=== PATIENT | male | born 1975 | race Caucasian/White ===

== ENCOUNTER 2020-03-09 11:03 | Emergency (ER) | payer OTHER, SELFPAY ==
[2020-03-09 11:07] VITALS: BP 128/89; PULSE 83; RESP 16; TEMP 36.7; O2SAT 100; BMI 32.5
--- NOTE | 2020-03-09 12:03 | PC.NURSE ---
AMBULATORY WITH STEADY GAIT, RISES SLOWLY FROM SITTING POSITIONADAM
--- NOTE | 2020-03-09 12:14 | ED_ITS ---
HPI - Back Pain/Injury General Chief Complaint: Back Pain/Injury Stated Complaint: BACK PAIN - WORK Time Seen by Provider: 03/09/20 12:04 Source: patient Mode of arrival: ambulatory Limitations: no limitations History of Present Illness HPI Narrative: 44-year-old male with a past medical history of chronic low back pain on meloxicam here with mid back pain status post lifting injury at work. Patient tells me that he had a box in his hand and someone told him he had something on his back and so he twisted causing pain in his mid back. There was no fall. He tells me the pain is across his mid back. No additional radiation of pain. No numbness or tingling. No bowel or bladder incontinence. No fevers or chills. The patient is ambulatory MD elicited complaint: back pain and back injury Pertinent past history: prior back pain Onset (ago): hour(s) Timing: intermittent Severity: mild Quality: aching Location: thoracic spine Radiation: none Exacerbating factors: movement Relieving factors: immobilization Context: turning/twisting Associated symptoms: denies other symptoms Treatments prior to arrival: cold therapy Related Data Previous Rx's Medication Instructions Recorded meloxicam 15 mg tablet 15 mg PO DAILY #30 tab 12/05/19 cyclobenzaprine 10 mg PO TID PRN #10 tab 03/09/20 lidocaine [Lidoderm] 1 patch TOPICAL DAILY #15 ea 03/09/20 Allergies Allergy/AdvReac Type Severity Reaction Status Date / Time No Known Allergies Allergy Verified 01/11/20 08:52 Review of Systems Review of Systems: Yes all other systems are reviewed and are negative Constitutional: Constitutional: Reports no additional constitutional complaints, Denies body ache(s), Denies chills, Denies fever(s), Denies headache(s) and Denies weakness Eyes: Eyes: Reports no additional eye complaints and Denies change in vision ENT: Reports system reviewed and no additional complaints, except as documented, Denies dizziness, Denies headache(s), Denies nasal congestion, Denies nasal discharge and Denies neck pain Cardiovascular: Cardiovascular: Reports no additional cardiovascular complaints, Denies chest pain, Denies leg edema and Denies dyspnea Respiratory: Respiratory: Reports no additional respiratory complaints, Denies cough and Denies dyspnea Gastrointestinal: Gastrointestinal: Reports no additional gastrointestinal complaints, Denies abdominal pain, Denies diarrhea, Denies nausea and Denies vomiting Genitourinary: Genitourinary: Denies urinary incontinence Musculoskeletal: Musculoskeletal: Reports no additional musculoskeletal complaints, Reports back pain, Denies arthralgias, Denies joint swelling, Denies neck pain, Denies numbness and Denies tingling Integumentary/Breasts: Skin/Breast: Reports system reviewed and no additional complaints, except as docu and Denies rash Neurologic: Reports system reviewed and no additional complaints, except as documented, Denies Abnormal speech present, Denies dizziness, Denies headache(s), Denies numbness, Denies tingling and Denies weakness [facility]LY [facility] Past Medical History Attestation statement: The following information was validated with the patient. Source: old records reviewed and nursing notes reviewed Surgical History H/O elbow surgery History of vasectomy Family History Family History Father No problems noted. Mother No problems noted. Social History Social History Alcohol intake: never Smoking Status: Never smoker Advance Directives: No Advance Directives Information Provided: No Physical Exam Vital Signs: Vital Signs: Last Vital Signs Temp 98.1 F 03/09/20 11:07 Pulse 83 03/09/20 11:07 Resp 16 03/09/20 11:07 BP 128/89 03/09/20 11:07 Pulse Ox 100 03/09/20 11:07 Body Mass Index 32.5 Const: General: cooperative, healthy appearing, comfortable and no acute distress Orientation/consciousness: patient oriented x3 Limitations: no limitations HENMT: Head: Yes normal to inspection Ears: hearing grossly normal bilaterally General nose exam: Normal external nose present Face and sinus: Yes normal facial exam Mouth: Normal oral and palatal mucosa present Throat: Yes posterior oropharynx normal Eyes: General: appearance normal, both eyes and all related structures Pupils: Equal, round and reactive pupils present Neck: Neck: Yes normal visual inspection Chest: Chest palpation & inspection: normal inspection of the chest Resp: Effort & Inspection: normal respiratory effort Auscultation: clear to auscultation bilaterally Cardio: Rate: regular rate Rhythm: regular rhythm Peripheral pulses: Peripheral pulses 2+ throughout GI: Inspection: Yes normal to inspection Palpation (GI): Soft to palpation and nontender Auscultation: normal bowel sounds Back/Spine/Pelvis: Other: Mid back pain. No midline tenderness or step-offs or deformities. No CVA tenderness. Pain is worsened with flexion and extension of the thoracic spine. Thoracic/Lumbar Spine: thoracic and lumbar spine normal to inspection Skin: General skin exam: no rashes or lesions noted Neuro: General: patient oriented x3, no focal motor deficits and normal sensa tion to monofilament Cranial nerves: Yes Equal, round and reactive pupils present Cognition (Neuro): normal cognition Speech: No Abnormal speech present Gait exam (Neuro): Normal gait present Motor exam (neuro): 5/5 m otor strength present throughout Extrem: General: Yes normal to inspection Course Course Course Narrative: 44-year-old male here with mid back pain status post twisting injury at work. No midline tenderness, step-offs or deformities. No neurological deficits or red flag symptoms. Imaging was deferred by patient. Likely musculoskeletal strain. Medicated with Toradol in the ER with improvement of symptoms. Reviewed worrisome signs and symptoms of when to return to the emergency department. Comfortable discharge home. Discharge Plan Discharge Clinical Impression: Acute thoracic myofascial strain Qualifiers: Encounter type: initial encounter Qualified Code(s): S29.019A - Strain of muscle and tendon of unspecified wall of thorax, initial encounter Patient Disposition: Home, Self-Care Instructions: Thoracic Back Strain (ED) Additional Instructions: Heat or ice gentle stretching Follow-up with your PCP or work connection [phone] No heavy lifting or bending Return to emergency department with numbness in the groin, bowel or bladder incontinence Continue your meloxicam Prescriptions: New cyclobenzaprine 10 mg tablet 10 mg PO TID PRN (Reason: muscle spasm) Qty: 10 RF: 0 lidocaine [Lidoderm] 5 % adhesive patch,medicated 1 patch topical DAILY Qty: 15 RF: 0 No Action meloxicam [Mobic] 15 mg tablet 15 mg PO DAILY Qty: 30 RF: 6 Referrals: Physician,Unknown [Physician] - 2 days (Dr Wynne ) Interventions: ED Discharge Assessment Last Done: 03/09/20 12:23 Discharge Date/Time: 03/09/20 12:23
[2020-03-09] MEDS: Ketorolac Tromethamine 60 MG/2 ML VIAL IM (12:18)
== END 2020-03-09 12:23 | disposition home or self-care (01) ==
LOC: HO.ED 12:16
PROVIDERS: Emergency Provider Emergency Medicine; PCP Internal Medicine
DX: S29.019A Strain of muscle and tendon of unspecified wall of thorax, initial encounter (principal); X50.0XXA Overexertion from strenuous movement or load, initial encounter; Y93.9 Activity, unspecified; Y92.9 Unspecified place or not applicable; Y99.0 Civilian activity done for income or pay; Z79.899 Other long term (current) drug therapy
CPT/HCPCS: 96372; 99283; 99284; J1885

== ENCOUNTER → 2020-05-09 13:59 | Outpatient (BNVA) | payer OTHER, SELFPAY | PROVIDERS: PCP Internal Medicine; Visit Provider Urology ==

== ENCOUNTER 2020-06-15 10:16 | Outpatient (REF) | payer OTHER, SELFPAY ==
--- NOTE | ~2020-06-15 | US_ITS ---
EXAMINATION: US RETROPERITONEAL LIMITED (RENAL ONLY) CLINICAL INFORMATION: Calculus of kidney. COMPARISON: None TECHNIQUE: Real-time imaging of the kidneys. FINDINGS: RIGHT KIDNEY: 10.3 x 5.2 x 5.9 cm (SAG x AP x TRV). The kidney is normal in size, contour, and echogenicity. Renal cortical thickness is normal. No renal calculi or hydronephrosis. There is anechoic cyst in midpole measuring 2.5 x 2.0 x 2.6 cm. LEFT KIDNEY: 11.5 X 6.0 X 5.5 cm (SAG x AP x TRV). The kidney is normal in size, contour, and echogenicity. Renal cortical thickness is normal. No calculi or focal parenchymal lesions. No hydronephrosis. US/US renal BI IMPRESSION: There is anechoic cyst in the upper pole right kidney. The left kidney is unremarkable.
== END 2020-06-15 10:17 | disposition home or self-care (01) ==
LOC: HO.HMGCX 10:16
PROVIDERS: Visit Provider Urology
DX: N20.0 Calculus of kidney (principal)
CPT/HCPCS: 76775

== ENCOUNTER → 2020-06-22 08:37 | Outpatient (BNVA) | payer OTHER, SELFPAY | PROVIDERS: PCP Internal Medicine; Visit Provider Urology ==

== ENCOUNTER → 2020-11-21 10:08 | Outpatient (REF) | payer OTHER, SELFPAY | LOC: HO.SL 10:08 | PROVIDERS: PCP Internal Medicine; Visit Provider Internal Medicine | DX: G47.9 Sleep disorder, unspecified (principal) | CPT/HCPCS: 95806 ==

== ENCOUNTER 2020-12-12 11:35 | Outpatient (REF) | payer OTHER, SELFPAY ==
--- NOTE | ~2020-12-12 | US_ITS ---
EXAMINATION: US RETROPERITONEAL LIMITED (RENAL ONLY) CLINICAL INFORMATION: Calculus of kidney. COMPARISON: Renal ultrasound 06/15/2020. TECHNIQUE: Real-time imaging of the kidneys. FINDINGS: RIGHT KIDNEY: 10.0 x 6.1 x 5.9 cm (SAG x AP x TRV). The kidney is normal in size, contour, and echogenicity. Renal cortical thickness is normal. There is a 2.4 x 2 x 2.5 cm cyst in the upper pole. No renal calculi or hydronephrosis. LEFT KIDNEY: 11.0 x 6.0 x 5.5 cm (SAG x AP x TRV). The kidney is normal in size, contour, and echogenicity. Renal cortical thickness is normal. No calculi or focal parenchymal lesions. No hydronephrosis. US/US renal BI IMPRESSION: Right renal cyst. No stone seen.
== END 2020-12-12 11:36 | disposition home or self-care (01) ==
LOC: HO.HMGCX 11:35
PROVIDERS: PCP Internal Medicine; Visit Provider Urology
DX: N20.0 Calculus of kidney (principal)
CPT/HCPCS: 76775

== ENCOUNTER 2021-01-22 10:31 | Outpatient (REF) | payer OTHER, SELFPAY ==
[2021-01-22 11:28] LABS: MANUAL DIFF FLAG NO
[2021-01-22 11:37] LABS: Basophils Percent Auto 0.4 % (0-2); Eosinophils Absolute Auto 0.1 X10*3/uL (0.0-0.4); Eosinophils Percent Auto 1.2 % (0-4); Hematocrit 41.1 % (42.0-52.0); Hemoglobin 13.7 g/dl (14.0-18.0); Imm Gran Abs Auto 0.02 X10*3/uL (0.00-0.03); Imm Gran Pct Auto 0.3 % (0.0-0.4); Lymphocytes Absolute Auto 2.1 X10*3/uL (1.2-4.9); Mean Corpuscular HGB Conc 33.3 g/dl (31.0-36.0); Mean Corpuscular Hemoglobin 31.1 pg (27.0-33.0); Mean Corpuscular Volume 93.2 fL (80.0-98.0); Mean Platelet Volume 10.5 fL (9.4-12.4); Monocytes Absolute Auto 0.5 X10*3/uL (0.1-1.2); Monocytes Percent Auto 6.9 % (2-11); Neutrophils Absolute Auto 4.5 x10*3/uL (2.0-8.3); Neutrophils Percent Auto 62.2 % (45-73); Platelet Count 226 X10*3/uL (160-400); Red Blood Count 4.41 X10*6/uL (4.60-5.80); Red Cell Distribution Width 12.4 % (11.0-16.0); White Blood Count 7.3 X10*3/uL (4.8-10.8)
[2021-01-22 11:57] LABS: Alanine Aminotransferase 31 U/L (0-40); Albumin Level 4.5 g/dL (3.5-5.0); Alkaline Phosphatase 80 U/L (39-117); Anion Gap 13 (12-20); Aspartate Amino Transferase 20 U/L (5-37); Bilirubin Total 0.3 mg/dL (0.0-1.0); Blood Urea Nitrogen 20 mg/dL (9-16); Calcium 9.4 mg/dL (8.4-10.2); Carbon Dioxide 25 mmol/L (22-29); Chloride 107 mmol/L (96-108); Cholesterol 229 mg/dL; Estimated Glomerular Filt Rate > 60; Glucose Fasting 96 mg/dL (60-99); HDL Cholesterol 41 mg/dL; LDL Cholesterol Calculated 171 mg/dl; Potassium 4.5 mmol/L (3.3-5.1); Sodium 140 mmol/L (135-145); Total Protein 6.9 g/dL (6.5-8.0); Triglycerides 85 mg/dL
== END 2021-01-22 10:32 | disposition home or self-care (01) ==
LOC: HO.HMGCLDS 10:31
PROVIDERS: PCP Internal Medicine; Visit Provider Internal Medicine
DX: Z00.00 Encounter for general adult medical examination without abnormal findings (principal)
CPT/HCPCS: 36415; 80053; 80061; 84443; 85025

== ENCOUNTER → 2021-01-29 10:13 | Outpatient (BNVA) | payer OTHER, SELFPAY | PROVIDERS: PCP Internal Medicine; Visit Provider Urology ==

== ENCOUNTER → 2021-04-02 11:29 | Outpatient (BNVA) | payer OTHER, SELFPAY | PROVIDERS: PCP Internal Medicine; Visit Provider Urology | DX: N20.0 Calculus of kidney (principal); N43.40 Spermatocele of epididymis, unspecified | CPT/HCPCS: 99212 ==

== ENCOUNTER 2021-04-03 | Outpatient (REF) | payer OTHER, SELFPAY ==
--- NOTE | ~2021-04-03 | CT_ITS ---
EXAMINATION: CT HEAD WITHOUT CONTRAST CLINICAL INFORMATION: Dizziness and giddiness. COMPARISON: None. TECHNIQUE: Contiguous axial imaging was performed from the skull base to vertex without intravenous administration of contrast. This CT examination was performed using dose optimization techniques as appropriate, variously including the following: *Automated exposure control *Adjustment of mA and/or kV according to patient size (this includes techniques or standardized protocols for targeted exams where dose is matched to indication/reason for exam; i.e. extremities or head) *Use of iterative reconstruction technique DLP: 874 mGy-cm. FINDINGS: There is no evidence of acute intracranial hemorrhage or territorial infarction. No abnormal mass effect or midline shift is seen. Alavrado to white matter differentiation is well preserved. No extra-axial fluid collections are identified. The ventricles are normal in size. There is no abnormal attenuation within the brain parenchyma. The osseous structures and soft tissues are normal. The mastoid air cells and visualized portions of the paranasal sinuses are well aerated. CT/CT head/brain wo con IMPRESSION: No acute intracranial process seen.
== END 2021-04-03 00:01 ==
LOC: HO.CT
PROVIDERS: Visit Provider Internal Medicine
DX: R42 Dizziness and giddiness (principal)
CPT/HCPCS: 70450

== ENCOUNTER → 2021-05-14 07:27 | Outpatient (REF) | payer OTHER, SELFPAY ==
--- NOTE | 2021-05-14 07:32 | CA_ITS ---
Transthoracic Echocardiogram Patient (Last, First, Middle): Kyle Diane, Gender: Male Date of : 1975 Age: 45 Procedure Date: 05/14/2021 Procedure Type: Transthoracic Echocardiogram Location: OP Height: 175.26 cm Weight: 95.26 kg BSA: 2.11 m2 Heart Rate: bpm BP: 120 / 90 mmHg Ship Engineer: VH/OT Referring MD: Mateusz Wynne MD Symptoms: R42 - Dizziness and giddiness Study Quality: Fair ECG Rhythm: Sinus Conclusions: - The left ventricular systolic function is low normal. The calculated ejection fraction is 53% by biplane method. - No obvious valvular pathology seen on this study. Findings Left Ventricle Normal left ventricular cavity size. There is normal left ventricular wall thickness. The left ventricular systolic function is low normal. The calculated ejection fraction is 53% by biplane method. There is no evidence of regional wall motion abnormalities. Diastolic function is normal for age. Right Ventricle Normal right ventricular cavity size and systolic function. Atria Both atria are normal in size. Aortic Valve There is a normal trileaflet aortic valve. There is no aortic valve stenosis. There is no aortic valve regurgitation. Mitral Valve The mitral valve appears normal. There is no mitral valve regurgitation. There is no mitral valve stenosis. Pulmonic Valve The pulmonic valve was not well visualized. Tricuspid Valve Normal tricuspid valve structure. There is trace tricuspid valve regurgitation. The pulmonary artery systolic pressure is normal. Great Vessels The aortic annulus, sinuses of valsalva, and asc aorta are normal in size. Venous The inferior vena cava is normal in size and collapses greater than 50% with inspiration. Pericardium/Pleural There is no evidence of pericardial effusion. Prior Study Comparison No prior study available for comparison. Recommendations, Care & Conclusions No obvious valvular pathology seen on this study. Measurements 2D Linear Measurements IVSd: 0.95 0.6-0.9/0.6-1.0 cm LVIDd: 3.94 3.9-5.3/4.2-5.9 cm LVIDd Index: 1.87 2.4-3.2/2.2-3.1 cm/m2 LVIDs: 2.70 2.0-3.6 cm LVPWd: 1.08 0.7-1.1 cm LA Diam: 3.40 2.7-3.8/3.0-4.0 cm LAIDs Index: 1.61 1.5-2.3 cm/m2 LV Mass: 158.01 67-162/88-224 g LV Mass Index: 74.89 43-95/49-115 g/m2 LVOT Diam: 2.10 3.0+(-)1.3 cm 2D Systolic Function EF 4C: 52.10 >55% EF 2C: 51.50 >55% EF BiP: 52.80 >55% Mitral Valve MV Pk E: 0.49 MV PK A: 0.52 MV Decel Time: 244.00 E/A: 0.90 E'Lateral: 12.70 E'Medial: 9.57 E/E' Med: 5.20 E/E' Lat: 3.90 PHT: 71.00 MVA PHT: 3.[address] Landry: 2.02 Aortic Valve AoV Pk Claudio: 1.21 AoV Mn Claudio: 0.86 AoV VTI: 0.27 AoV Pk Grad: 6.00 Aov Mn Grad: 3.00 TYLER Cont.VTI: 2.29 LVOT LVOT Pk Claudio: 1.01 LVOT Mn Claudio: 0.60 LVOT VTI: 0.18 LVOT Pk Grad: 4.00 LVOT Mn Grad: 2.00 LVOT Diam: 2.10 LVOT Area: 3.46 Diastolic Function MV Pk E: 0.49 MV Pk A: 0.52 E/A: 0.90 E'Medial: 9.57 E/E' Med: 5.20 E' Laterial: 12.70 E/E' Lat: 3.90 Tricuspid Valve TR Pk Claudio: 1.66 TR Pk Grad: 11.00 Great Vessels Aorta Sinus of Valsalva: 3.10 2.0-3.[address] Ridge: 2.60 1.7-3.4 cm Ao Asc: 2.80 2.1-3.4 cm Pulmonary Valve PV Pk Claudio: 0.91 Peak PV Grad: 3.00 Updated in Other Vendor System with Status of Final Umberto Gutierrez MD electronically signed on 05/16/2021 11:57:37 AM with status of Final
[2021-05-14 08:36] LABS: MANUAL DIFF FLAG NO
[2021-05-14 09:19] LABS: Basophils Percent Auto 0.5 % (0-2); Eosinophils Absolute Auto 0.1 X10*3/uL (0.0-0.4); Eosinophils Percent Auto 1.6 % (0-4); Hematocrit 42.4 % (42.0-52.0); Hemoglobin 13.9 g/dl (14.0-18.0); Imm Gran Abs Auto 0.02 X10*3/uL (0.00-0.03); Imm Gran Pct Auto 0.3 % (0.0-0.4); Lymphocytes Absolute Auto 2.5 X10*3/uL (1.2-4.9); Lymphocytes Percent Auto 33.7 % (20-40); Mean Corpuscular HGB Conc 32.8 g/dl (31.0-36.0); Mean Corpuscular Hemoglobin 30.8 pg (27.0-33.0); Mean Corpuscular Volume 93.8 fL (80.0-98.0); Mean Platelet Volume 10.1 fL (9.4-12.4); Monocytes Absolute Auto 0.6 X10*3/uL (0.1-1.2); Monocytes Percent Auto 8.2 % (2-11); Neutrophils Absolute Auto 4.1 x10*3/uL (2.0-8.3); Neutrophils Percent Auto 55.7 % (45-73); Platelet Count 207 X10*3/uL (160-400); Red Blood Count 4.52 X10*6/uL (4.60-5.80); Red Cell Distribution Width 12.5 % (11.0-16.0); White Blood Count 7.4 X10*3/uL (4.8-10.8)
[2021-05-14 09:36] LABS: Anion Gap 12 (12-20); Blood Urea Nitrogen 17 mg/dL (9-16); Calcium 9.4 mg/dL (8.4-10.2); Carbon Dioxide 27 mmol/L (22-29); Chloride 106 mmol/L (96-108); Estimated Glomerular Filt Rate > 60; Glucose Random 91 mg/dL (60-115); Potassium 4.3 mmol/L (3.3-5.1); Sodium 141 mmol/L (135-145)
== END ==
LOC: HO.CARD 07:27
PROVIDERS: PCP Internal Medicine; Visit Provider Internal Medicine
DX: Z13.0 Encounter for screening for diseases of the blood and blood-forming organs and certain disorders involving the immune mechanism (principal); R42 Dizziness and giddiness; R51.9 Headache, unspecified
CPT/HCPCS: 36415; 80048; 85025; 93306

== ENCOUNTER → 2021-07-30 14:36 | Outpatient (BNVA) | payer OTHER, SELFPAY | PROVIDERS: PCP Internal Medicine; Visit Provider Urology | DX: Z13.89 Encounter for screening for other disorder (principal) ==

== ENCOUNTER 2021-10-11 10:09 | Outpatient (REF) | payer OTHER, SELFPAY ==
--- NOTE | ~2021-10-11 | XR_ITS ---
EXAMINATION: XR LUMBOSACRAL SPINE WITH OBLIQUES CLINICAL INFORMATION: Low back pain COMPARISON: None TECHNIQUE: AP, both oblique, and lateral and flexion and extension views of the lumbar spine. Lateral view of the lumbosacral junction. FINDINGS: Bone alignment is normal. No fracture or dislocation is seen. Disc spaces are normal. No instability on flexion-extension views is seen. No pars defect is seen. XR/XR lumbar spine 6V w bending IMPRESSION: Unremarkable examination.
== END 2021-10-11 10:10 | disposition home or self-care (01) ==
LOC: HO.XRAY 10:09
PROVIDERS: Visit Provider Nurse Practitioner Family
DX: M47.816 Spondylosis without myelopathy or radiculopathy, lumbar region (principal); M54.50 Low back pain, unspecified; M62.830 Muscle spasm of back; M47.812 Spondylosis without myelopathy or radiculopathy, cervical region
CPT/HCPCS: 72114; 99202

== ENCOUNTER 2021-10-15 20:20 | Emergency (ER) | payer OTHER, SELFPAY ==
--- NOTE | ~2021-10-15 | XR_ITS ---
EXAMINATION: XR WRIST, RIGHT CLINICAL INFORMATION: Pain/stiffness after weight lifting COMPARISON: None TECHNIQUE: Four views of the right wrist. FINDINGS: No fracture or dislocation. The carpal rows are well aligned. Joint spaces are maintained. The soft tissues are unremarkable. Density overlying the second metacarpal head appears to be within the bone. This could be a tiny foreign body along the margin of the bone. XR/XR wrist RT min 3V IMPRESSION: No fracture or malalignment.
[2021-10-15 20:34] VITALS: BP 139/98; PULSE 83; RESP 16; TEMP 35.7; O2SAT 97; BMI 32.5
--- NOTE | 2021-10-15 21:54 | ED_ITS ---
HPI - Extremity Problem General Chief complaint: Extremity Injury, Upper Stated complaint: wrist inj Time Seen by Provider: 10/15/21 21:54 Source: patient Mode of arrival: ambulatory Limitations: no limitations History of Present Illness HPI Narrative: 45-year-old male presenting to the emergency department with complaints of right-sided wrist pain status post lifting some morning, patient tells me he was dumbbell pressing about 45 lb in suddenly he started having right-sided wrist pain. He reports it is worse with movement better at rest. He also tells me he notices his left wrist is getting stiff. He reports that he is having a hard time making a fist with his right hand. Denies numbness or tingling. He tells me that he is concerned he may have a fracture and he wanted to come get checked out. He has never had issues with his right wrist in the past. Denies blunt trauma . Right hand dominant MD Complaint: joint swelling and joint pain Onset (ago): day(s) (1) Pain Consistency: constant Location: right Radiation: none Relieving factors: nothing Exacerbating factors: nothing Associated symptoms: denies other symptoms Related Data Home Medications Medication Instructions Recorded Confirmed loratadine 10 mg tablet (Claritin) 10 mg PO DAILY 10/11/21 Previous Rx's Medication Instructions Recorded meloxicam 15 mg tablet 15 mg PO DAILY #90 tabs 07/22/21 methocarbamol 750 mg tablet 750 mg PO Q8H PRN muscle spasm 30 10/11/21 days #90 tabs Allergies Allergy/AdvReac Type Severity Reaction Status Date / Time No Known Allergies Allergy Verified 10/11/21 09:18 Review of Systems Review of Systems: Constitutional : No Weight loss, No Fever, No Chills, No Fatigue, No Malaise ENT/Mouth : No sore throat, No Rhinorrhea Eyes: No Eye Pain, No Swelling, No Redness Cardiovascular : No Chest Pain, No SOB, No Dyspnea on Exertion, No Orthopnea, No Edema, No Palpitations Respiratory : No Cough, No Sputum, No Wheezing Gastrointestinal : No Nausea, No Vomiting, No Diarrhea, No Constipation, No abdominal Pain, No Hematochezia, No Melena Genitourinary : No Dysuria, No Urinary Frequency, No Hematuria, Musculoskeletal : + joint pain, No Myalgias, + Joint Swelling Skin : No Skin Lesions, No rash Neuro : No Weakness, No Numbness, No Dizziness, No Headache Psych : No Anxiety/Panic, No Depression All other systems reviewed and are negative Yes all other systems are reviewed and are negative FORMERLY [facility] Past Medical History Attestation statement: The following information was validated with the patient. Source: old records reviewed and nursing notes reviewed Medical History Anxiety Hyperlipidemia Low back pain Lumbar facet arthropathy Obesity Surgical History H/O elbow surgery History of vasectomy Family History Family History Father No problems noted. Mother No problems noted. Social History Social History Housing: House Alcohol intake: never Patient Tobacco Use Status: Never used Tobacco e-Cigarette/Vaping Use: Never Used Second Hand Smoke Exposure: No Advance Directives: No Advance Directives Information Provided: No service: Yes Current occupational status: employed Cognitive needs: No Hearing needs: No Vision needs: No Physical Exam Vital Signs: Vital Signs: Last Vital Signs Temp 96.3 F L 10/15/21 20:34 Pulse 83 10/15/21 20:34 Resp 16 10/15/21 20:34 BP 139/98 H 10/15/21 20:34 Pulse Ox 97 10/15/21 20:34 O2 Del Method 10/15/21 20:34 BMI result Body Mass Index 32.5 VSS Appearance: Alert.? Oriented X3.? No acute distress.? Head: Normocephalic, atraumatic, no step-offs or deformities Eyes: Pupils equal, round and reactive to light.? CVS: Normal heart rate and rhythm.? Pulses normal.? Respiratory: No respiratory distress.? Breath sounds normal.? Abdomen: Soft and nontender.? Skin: Skin warm and dry.? Normal skin color.? Normal skin turgor.? Extremities: 5/5 strength to bilateral upper and lower extremities patient able to make a fist with bilateral hands, normal hand hearing health technician bilaterally. Full range of motion to wrist and fingers bilaterally, patient does however report discomfort with range of motion of right wrist.. 2+ radial pulses equal bilateral. No wrist drop bilaterally. Pain with palpation to medial and lateral aspects of wrist, no overlying skin changes or swelling. Normal sensation. No evidence of acute ligament or tendon injury. Back: No midline tenderness, no C-spine tenderness, full range of motion, no CVA tenderness bilaterally Neuro: Oriented X 3.? No motor deficit.? No sensory deficit. CN 2-12 intact Course Reevaluation(s) Reevaluation #1: X-ray of the right wrist with no fractures or malalignment. Likely wrist strain. Patient will be given a Velcro splint. Advised patient to follow-up with orthopedics if pain continues in a week or 2. Educated on worrisome signs and symptoms and when to return. At this time I feel comfortable with discharge home. Time: 22:04 MDM - Extremity (Nontraumatic) MDM Narrative Medical decision making narrative: 2201 45-year-old male presents with right-sided wrist pain status post dumbell pressing 45 lb this morning, pain worsening. Physical examination significant for 5/5 strength to bilateral upper and lower extremities patient able to make a fist with bilateral hands, normal hand hearing health technician bilaterally. Full range of motion to wrist and fingers bilaterally, patient does however report discomfort with range of motion of right wrist.. 2+ radial pulses equal bilateral. No wrist drop bilaterally. Pain with palpation to medial and lateral aspects of wrist, no overlying skin changes or swelling. Normal sensation. No evidence of acute ligament or tendon injury. Unlikely fracture dislocation. Likely wrist strain. No pain with palpation over right anatomical snuffbox. Unlikely scaphoid fracture. NV intact Plan at this time is to obtain plain films Medical Records Attestation: I reviewed the patient's medical records. Lab Data Attestation: I reviewed the patient's lab results. Critical Care Time Critical Care Time Critical Care Time: No Discharge Plan Discharge Clinical Impression: Acute pain of right wrist Patient Disposition: Home, Self-Care Instructions: Wrist Injury (ED), R.I.C.E. Treatment (ED) Additional Instructions: Take your medications as prescribed. If you were prescribed antibiotics today, it is important that you take your medication to their entirety, do not skip any doses, do not finish them early. Follow-up with your primary care provider this week. Follow up with ortho, if pain continues in a week or two Return to the emergency department with new or worsening symptoms. Such as fevers, chills, chest pain, shortness of breath, nausea, vomiting, dizziness, headache, vision changes, lethargy In case of emergency call 911 XR/XR wrist RT min 3V IMPRESSION: No fracture or malalignment. Since you are taking meloxicam daily, you can add Tylenol however do not take ibuprofen. Prescriptions: No Action meloxicam 15 mg tablet 15 mg PO DAILY Qty: 90 8RF loratadine [Claritin] 10 mg tablet 10 mg PO DAILY methocarbamol 750 mg tablet 750 mg PO Q8H PRN (Reason: muscle spasm) 30 Days Qty: 90 1RF Referrals: [facility] [place] Orthopedic Surgeons [Provider Group] - 2 weeks ED Physician,Generic [Physician] - 2 days Mateusz Wynne MD [Primary Care Provider] - Stand Alone Forms: Work/School Release
== END 2021-10-15 22:32 | disposition home or self-care (01) ==
PROVIDERS: Emergency Provider Internal Medicine; PCP Internal Medicine
DX: S63.501A Unspecified sprain of right wrist, initial encounter (principal); Y29.XXXA Contact with blunt object, undetermined intent, initial encounter; Y93.B3 Activity, free weights; Y92.9 Unspecified place or not applicable; Y99.9 Unspecified external cause status; Z79.899 Other long term (current) drug therapy
CPT/HCPCS: 73110; 99283

== ENCOUNTER → 2021-11-07 14:05 | Outpatient (BNVA) | payer OTHER, SELFPAY | PROVIDERS: PCP Internal Medicine; Visit Provider Nurse Practitioner Family | DX: M54.50 Low back pain, unspecified (principal); M62.830 Muscle spasm of back; M47.816 Spondylosis without myelopathy or radiculopathy, lumbar region; M54.16 Radiculopathy, lumbar region | CPT/HCPCS: 99212 ==

== ENCOUNTER 2021-11-20 19:26 | Outpatient (REF) | payer OTHER, SELFPAY ==
--- NOTE | ~2021-11-20 | MR_ITS ---
EXAMINATION: MR LUMBAR SPINE WITHOUT CONTRAST CLINICAL INFORMATION: Back spasms, lower back pain rating into the legs, worse on the right COMPARISON: None TECHNIQUE: MRI of the lumbar spine was obtained using routine sequences without contrast. FINDINGS: There is transitional lumbosacral anatomy. There is partial sacralization of L5 which demonstrates a broad transverse process on the left which articulates with the sacrum. The last well-formed disc space is designated L5-S1. Normal anatomic alignment. No suspicious marrow signal or focal osseous lesion. The vertebral body heights are maintained. The intervertebral discs are of normal height and signal. The conus medullaris terminates at the level of L1-L2. The distal spinal cord is normal in appearance. The cauda equina nerve roots appear normal. No significant abnormalities of the paraspinal musculature.. Limited evaluation of the intra-abdominal structures without significant abnormalities. The abdominal aorta is of normal contour and caliber. SPINAL LEVELS: L1-L2: No significant spinal canal or neuroforaminal narrowing. L2-L3: No significant spinal canal or neuroforaminal narrowing. L3-L4: No significant spinal canal or neuroforaminal narrowing. Mild to moderate facet arthropathy. L4-L5: No significant spinal canal or neuroforaminal narrowing. Moderate facet arthropathy. L5-S1: No significant spinal canal or neuroforaminal narrowing. Mild to moderate facet arthropathy MR/MR lumbar spine wo con IMPRESSION: 1. Transitional lumbosacral anatomy with partial sacralization of L5 on the left 2. Mild to moderate lower lumbar facet arthropathy, worst at L4-L5. Otherwise unremarkable exam.
== END 2021-11-20 19:27 | disposition home or self-care (01) ==
LOC: HO.MRI 19:26
PROVIDERS: Visit Provider Nurse Practitioner Family
DX: M47.816 Spondylosis without myelopathy or radiculopathy, lumbar region (principal); M54.16 Radiculopathy, lumbar region; M54.50 Low back pain, unspecified; M62.830 Muscle spasm of back
CPT/HCPCS: 72148

== ENCOUNTER 2021-12-31 05:54 | Outpatient (REF) | payer OTHER, SELFPAY ==
--- NOTE | ~2021-12-31 | FL_ITS ---
EXAMINATION: XR FLUOROSCOPY WITH IMAGES CLINICAL INFORMATION: M47.816 - Spondylosis without myelopathy or radiculopathy, lumbar region COMPARISON: Radiographs lumbar spine 10/11/2021 TECHNIQUE: Fluoroscopy performed by Dr. Héctor Meyer. Fluoroscopy time: 0.6 minutes. Cumulative Dose: 11.6 mGy. DAP: 3.16 Gy-cm2. Images: 6. FINDINGS: There are spinal needles overlying the bilateral outer L3, L4, and L5 neural foramen. There is contrast seen in the respective nerve sheaths. Some early transforaminal epidural extension is suggested. No visible vascular communication. FL/FL guidance in treatment room IMPRESSION: Fluoroscopy for pain management procedures.
== END 2021-12-31 05:55 | disposition home or self-care (01) ==
LOC: CF 05:54
PROVIDERS: Visit Provider Anesthesiology
DX: M47.26 Other spondylosis with radiculopathy, lumbar region (principal); M62.830 Muscle spasm of back
CPT/HCPCS: 64490; 64491

== ENCOUNTER 2022-01-27 05:57 | Day surgery (SDC) | payer OTHER, SELFPAY ==
[2022-01-15 15:10] VITALS: BMI 32.5
--- NOTE | 2022-01-21 14:00 | HO.ANESPROP2 ---
Documented by User: Katelynn Modi NP 01/21/22 14:01 HPI - Anesthesia Eval Consult details Narrative: 46yo M for Bilateral Denervation Testicle PMFSH Active Problems Active Problems: All Active Problems (Updated 01/15/22 @ 15:10 by Jennifer Chau RN) Back pain (Acute) Skin lesion (Acute) Difficulty urinating (Acute) Body aches (Acute) Nephrolithiasis (Acute) Sleep disorder (Acute) Physical exam (Acute) Light headedness (Acute) Spermatocele (Acute) Depression (Acute) Orchalgia (Acute) Lumbar spondylosis (Acute) Muscle spasm of back (Acute) Cervical spondylosis (Acute) Lumbar radiculopathy (Acute) Low back pain (Acute) Lumbar facet arthropathy (Acute) Hyperlipidemia (Acute) Obesity (Acute) Anxiety (Acute) Past Medical History Medical History Anxiety Arthritis Depression Hyperlipidemia Low back pain Lumbar facet arthropathy Obesity Renal calculi Sleep disorder Family History Family History Father No problems noted. Mother No problems noted. Surgical History Surgical History H/O elbow surgery History of vasectomy Social History Social History Housing: House Are you a primary certified social workers in health care to a significant other at home: No Do you presently have visiting nurse or other home services: No Alcohol intake: never Patient Tobacco Use Status: Never used Tobacco e-Cigarette/Vaping Use: Never Used Second Hand Smoke Exposure: No Use of substances other than those prescribed or required for medical reasons: No Have you been hit, kicked, punched, or otherwise hurt by someone within the past year? If so, by whom?: No Are you DNR?: No Advance Directives: No (states is his ) Advance Directives Information Provided: Yes (as above noted) Advance Directives on File: No Recently lost weight without trying: No Eating poorly because of decreased appetite: No Nutrition Risks: No Nutritional Risk Poor oral hygiene: No service: Yes Current occupational status: employed Cognitive needs: No Hearing needs: No Vision needs: No Meds Allergies Allergy/AdvReac Type Severity Reaction Status Date / Time No Known Allergies Allergy Verified 01/27/22 06:18 Home Medications Medication Instructions Recorded Confirmed Last Taken Type loratadine 10 mg tablet (Claritin) 10 mg PO DAILY 10/11/21 01/15/22 01/06/22 History Exam Exam Date and Time: January 21, 2022 1400 Height,Weight and Vital Signs: Height 5 ft 10 in Weight 102.965 kg Assessment and Plan Assessment Anesthesia Assessment: Chart Reviewed Documented by User: Junior West MD 01/27/22 07:36 [facility] Past Medical History Medical History Anxiety Arthritis Depression Hyperlipidemia Low back pain Lumbar facet arthropathy Obesity Renal calculi Sleep disorder Family History Family History Father No problems noted. Mother No problems noted. Family history of problems with anesthesia: No Surgical History Surgical History H/O elbow surgery History of vasectomy History of Problems with Anesthesia: No Social History Social History Housing: House Are you a primary certified social workers in health care to a significant other at home: No Do you presently have visiting nurse or other home services: No Alcohol intake: never Patient Tobacco Use Status: Never used Tobacco e-Cigarette/Vaping Use: Never Used Second Hand Smoke Exposure: No Use of substances other than those prescribed or required for medical reasons: No Have you been hit, kicked, punched, or otherwise hurt by someone within the past year? If so, by whom?: No Are you DNR?: No Advance Directives: No (states is his ) Advance Directives Information Provided: Yes (as above noted) Advance Directives on File: No Recently lost weight without trying: No Eating poorly because of decreased appetite: No Nutrition Risks: No Nutritional Risk Poor oral hygiene: No service: Yes Current occupational status: employed Cognitive needs: No Hearing needs: No Vision needs: No Meds Allergies Allergy/AdvReac Type Severity Reaction Status Date / Time No Known Allergies Allergy Verified 01/27/22 06:18 Home Medications Medication Instructions Recorded Confirmed Last Taken Type loratadine 10 mg tablet (Claritin) 10 mg PO DAILY 10/11/21 01/15/22 01/06/22 History Exam Airway Mallampati Class: III TM Dist: >3cm Neck ROM: Full Heart: rrr Lungs: clear Assessment and Plan Final Anesthetic Review Family History of Problems with Anesthesia: No History of Problems with Anesthesia: No NPO: Yes ASA Class: II Final Preanesthetic Review: No Changes in Pt Med Stat, Meds/Allgs Chart Reviewed, Consent Obtained/Reviewed and Anes Risks/Benef Reviewed Patient Risk: Low Procedure Risk: Low Anesthetic Plan Anesthetic Plan: GA Disposition: Standard PACU
[2022-01-27] VITALS (9 sets, daily range): BP systolic 118–149; BP diastolic 73–99; PULSE 62–72; RESP 16–18; TEMP 36.1–36.6; O2SAT 97–100
[2022-01-27] MEDS: Lactated Ringers 1,000 ML 100 ML IVCONT (06:25)
--- NOTE | 2022-01-27 07:25 | P.HPSUR_ITS ---
Pre-Procedural Eval Section A Date of Service: 01/27/22 Section B Chief Complaint: Testicular pain, unspecified Details of Present Illness: Bilateral testicular pain following vasectomy Relevant Family History (Specify if Yes): No Relevant Social History: None Present Medications: see Short Stay Collaborative assessment Medical History: No relevant PMH History of Previous Operations: No relevant previous surgery Allergies: Allergies Allergy/AdvReac Type Severity Reaction Status Date / Time No Known Allergies Allergy Verified 01/27/22 06:18 Review of Systems Sugical H&P ROS: Negative: Constitution, Cardiovascular, Respiratory, N eurological, Psychiatric, Hem-Onc, Allergic/Immunologic, Gastrointestinal, Genitourinary, Musculoskeletal, Integumentary, Endocrine and Eyes/Ears/Nose/Throat Exam Surgical H&P Exam: Normal: HEENT, Normal: Heart, Normal: Lungs, Normal: Extremities, Normal: Abdomen, Normal: Skin and Normal: Neurological Plan Diagnosis/Plan: Unchanged (bilateral testicle denervation) I have reviewed the history and physical and performed a pertinent physical examination on my patient. No changes have occurred unless specified.
[2022-01-27] MEDS: Acetaminophen 325 MG TABLET 650 MG PO (07:29)
--- NOTE | 2022-01-27 09:01 | P.OP_ITS ---
Operative Note Operative Note Date of Service: 01/27/22 Narrative: PreOperative Diagnosis: Bilateral persistent testicular pain - 20 years following vasectomy Post Operative Diagnosis: Same Procedure: Bilateral microscopic inguinal denervation Surgeon: Dr Mesfin Gonzales Anesthesia: General Indications for procedure: Bilateral Persistent testicular pain. In the office responded well to local anesthetic infiltration in the cord. Was offered microscopic inguinal cord denervation. Understands this is 80% successful and primary risk is loss of testicle. Procedure: After informed consent was verified the patient was brought to the operating room and placed in a supine position. Anesthesia was administered per protocol. The patient was shaved and prepped and draped in a sterile fashion. Safety pause time-out was performed. Antibiotics had been given. The vasal defect from prior vasectomy was palpable in the midline for both scrot um. Decision was made to proceed initially with a midline incision. A 4 cm incision was made had the penoscrotal junction extending into the scrotum. Skin and subcutaneous tissue were divided. The left Vasa was grasped and brought toward the operative field. Dissection was performed. The clips from prior vasectomy were palpable. These were used as a guide to bring the fas into the operative area. Once the divided vas had been isolated this was elevated into the incision using a tongue depressor. The operating microscope was brought into place. Dissection was then performed on the cord. Muscle fibers surrounding the cord were all dissected. This was performed using bipolar cautery and scissors. The overlying tissue was removed and the cord packets exposed. Fascia was cauterized and dissected from the packet. The clips surrounding the Vasa removed. Resection was performed on each end of the phase of for approximately 1.5 cm. Dissection and denervation were performed on the 3 identified areas including the cremasteric muscle layer, marielos vasal tissues, and the posterior periarterial - lipomatous tissue. Care was taken to leave all veins and feeding arterial vessels intact. Doppler ultrasound was available to assist with identification. Using an ocular blade the cord was denervated for approximately 1-1.5 cm. The blade was swept across the surface of the vas deferens small bleeding areas were controlled using bipolar cautery When this was complete the cord was examined. The tongue depressor was removed and the cord allowed to sit in its normal position. The area was irrigated with saline. Reapproximation of deep tissue was performed using interrupted 3-0 Vicryl. A similar procedure was repeated on the right side. The area of clips on the right side were identified and sec Can was brought to the midline. Similar dissection was performed described previously. Using the operative microscope ends were identified and an ocular blade was used to denervate the vas proximal fashion. Skin was reapproximated using interrupted 4-0 chromic. He tolerated the procedure well and was extubated in operating room and transferred in stable condition to the recovery area.
[2022-01-27] MEDS: fentaNYL citrate/PF 100 MCG/2 ML VIAL 25 MCG IVPUSH ×2 (09:18→09:33)
[2022-01-27] MEDS: Ketorolac Tromethamine 15 MG/ML VIAL IVPUSH (09:19)
[2022-01-27] MEDS: oxyCODONE HCl Immed Release 5 MG TABLET PO (09:19)
== END 2022-01-27 11:51 | disposition home or self-care (01) ==
PROVIDERS: PCP Internal Medicine; Visit Provider Urology
PROC: (CPT 55899; principal; 2022-01-27 07:30)
DX: N50.811 Right testicular pain (principal); N50.812 Left testicular pain; N20.0 Calculus of kidney; Z98.52 Vasectomy status
CPT/HCPCS: 55899; 69990; 88302; J0690; J1100; J1885; J2250; J2405; J2795; J3010

== ENCOUNTER 2022-02-07 10:08 | Day surgery (SDC) | payer OTHER, SELFPAY ==
[2022-02-03 12:48] VITALS: BMI 31.7
--- NOTE | 2022-02-06 09:58 | P.CONAN_ITS ---
Documented by User: Katelynn Modi NP 02/06/22 10:00 HPI - Anesthesia Eval Consult details Narrative: 46yo M for Bilateral Therapeutic L3-L4-DR L5 Medial Branch Block s/p testicle denervation 01/27/22 with GA-LMA 5 PMFSH Active Problems Active Problems: All Active Problems (Updated 01/15/22 @ 15:10 by Jennifer Chau RN) Back pain (Acute) Skin lesion (Acute) Difficulty urinating (Acute) Body aches (Acute) Nephrolithiasis (Acute) Sleep disorder (Acute) Physical exam (Acute) Light headedness (Acute) Spermatocele (Acute) Depression (Acute) Orchalgia (Acute) Lumbar spondylosis (Acute) Muscle spasm of back (Acute) Cervical spondylosis (Acute) Lumbar radiculopathy (Acute) Low back pain (Acute) Lumbar facet arthropathy (Acute) Hyperlipidemia (Acute) Obesity (Acute) Anxiety (Acute) Past Medical History Medical History Anxiety Arthritis Depression Hyperlipidemia Low back pain Lumbar facet arthropathy Obesity Renal calculi Sleep disorder Family History Family History Father No problems noted. Mother No problems noted. Family history of problems with anesthesia: No Surgical History Surgical History H/O elbow surgery History of testicular surgery History of vasectomy History of Problems with Anesthesia: No Social History Social History Housing: House Are you a primary transitions rn care coordinator to a significant other at home: No Do you presently have visiting nurse or other home services: No Alcohol intake: never Patient Tobacco Use Status: Never used Tobacco e-Cigarette/Vaping Use: Never Used Second Hand Smoke Exposure: No Use of substances other than those prescribed or required for medical reasons: No Have you been hit, kicked, punched, or otherwise hurt by someone within the past year? If so, by whom?: No Are you DNR?: No Advance Directives: No Advance Directives Information Provided: Yes ( - info given 12/2021) Advance Directives on File: No Recently lost weight without trying: No Eating poorly because of decreased appetite: No Nutrition Risks: No Nutritional Risk service: Yes Current occupational status: employed Cognitive needs: No Hearing needs: No Vision needs: No Meds Allergies Allergy/AdvReac Type Severity Reaction Status Date / Time No Known Allergies Allergy Verified 02/03/22 12:40 Home Medications Medication Instructions Recorded Confirmed Last Taken Type loratadine 10 mg tablet (Claritin) 10 mg PO DAILY 10/11/21 02/03/22 01/06/22 History Exam Exam Date and Time: February 06, 2022 0958 Height,Weight and Vital Signs: Height 5 ft 9 in Weight 97.522 kg Assessment and Plan Assessment Anesthesia Assessment: Chart Reviewed Final Anesthetic Review Family History of Problems with Anesthesia: No History of Problems with Anesthesia: No Documented by User: Rachel Reece MD 02/07/22 16:24 [facility] Past Medical History Medical History Anxiety Arthritis Depression Hyperlipidemia Low back pain Lumbar facet arthropathy Obesity Renal calculi Sleep disorder Family History Family History Father No problems noted. Mother No problems noted. Surgical History Surgical History H/O elbow surgery History of testicular surgery History of vasectomy Social History Social History Housing: House Are you a primary transitions rn care coordinator to a significant other at home: No Do you presently have visiting nurse or other home services: No Alcohol intake: never Patient Tobacco Use Status: Never used Tobacco e-Cigarette/Vaping Use: Never Used Second Hand Smoke Exposure: No Use of substances other than those prescribed or required for medical reasons: No Have you been hit, kicked, punched, or otherwise hurt by someone within the past year? If so, by whom?: No Are you DNR?: No Advance Directives: No Advance Directives Information Provided: Yes ( - info given 12/2021) Advance Directives on File: No Recently lost weight without trying: No Eating poorly because of decreased appetite: No Nutrition Risks: No Nutritional Risk service: Yes Current occupational status: employed Cognitive needs: No Hearing needs: No Vision needs: No Meds Allergies Allergy/AdvReac Type Severity Reaction Status Date / Time No Known Allergies Allergy Verified 02/03/22 12:40 Home Medications Medication Instructions Recorded Confirmed Last Taken Type loratadine 10 mg tablet (Claritin) 10 mg PO DAILY 10/11/21 02/03/22 01/06/22 History Exam Airway Mallampati Class: III TM Dist: >3cm Neck ROM: Full Loose/Missing/Broken Teeth: No Heart: RRR Lungs: CTA Assessment and Plan Assessment Anesthesia Assessment: Anesthesia Plan Discussed Final Anesthetic Review NPO: Yes ASA Class: II Final Preanesthetic Review: Meds/Allgs Chart Reviewed, Consent Obtained/Reviewed and Anes Risks/Benef Reviewed Patient Risk: Low Procedure Risk: Low Anesthetic Plan Anesthetic Plan: MAC: Disposition: Standard PACU
--- NOTE | ~2022-02-07 | FL_ITS ---
EXAMINATION: XR FLUOROSCOPY WITH IMAGES CLINICAL INFORMATION: Back pain. Pain management procedure. COMPARISON: MR lumbar spine 11/20/2021; radiographs lumbar spine 10/11/2021 TECHNIQUE: Fluoroscopy Supervised By: Dr. Héctor Meyer. Fluoroscopy Time: 0.5 minutes. Cumulative Dose: 23.8 mGy. DAP: 6.50 Gycm2. Images: 6. FINDINGS: There are spinal needles overlying the bilateral outer L3, L4, and L5 neural foramen. There is contrast seen in the respective nerve sheaths. Some early transforaminal epidural extension is suggested. No visible vascular communication. There is a transitional vertebrae at L5 with left hemisacralization and partial right hemisacralization. FL/FL guidance in OR IMPRESSION: Fluoroscopy for pain management procedures.
[2022-02-07 10:54] VITALS: BP 127/91; PULSE 71; RESP 16; TEMP 37.1; O2SAT 98
[2022-02-07] MEDS: Lactated Ringers 1,000 ML 100 ML IVCONT (10:56)
--- NOTE | 2022-02-07 15:29 | MHC.SHP ---
Pre-Procedural Eval Section A Date of Service: 02/07/22 The patient is an INPATIENT: No Changes since office visit: Yes Patient answered all questions The History & Physical has been completed within 30 days and I have reviewed it.: No Section B Chief Complaint: Low back pain,Spondylosis without myelopathy Relevant Family History (Specify if Yes): No Relevant Social History: None Present Medications: see Short Stay Collaborative assessment Medical History: No relevant PMH History of Previous Operations: No relevant previous surgery Allergies: Allergies Allergy/AdvReac Type Severity Reaction Status Date / Time No Known Allergies Allergy Verified 02/03/22 12:40 Review of Systems Sugical H&P ROS: Negative: Constitution, Cardiovascular, Respiratory, Neurological, Psychiatric, Hem-Onc, Allergic/Immunologic, Gastrointestinal, Genitourinary, Musculoskeletal, Integumentary, Endocrine and Eyes/Ears/Nose/Throat Exam Surgical H&P Exam: Normal: HEENT, Normal: Heart, Normal: Lungs, Normal: Extremities, Normal: Abdomen, Normal: Skin and Normal: Neurological Plan Diagnosis/Plan: Unchanged I have reviewed the history and physical and performed a pertinent physical examination on my patient. No changes have occurred unless specified.
--- NOTE | 2022-02-07 15:50 | PM.OP ---
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
--- NOTE | 2022-02-07 15:52 | P.OP_ITS ---
Operative Note Operative Note Date of Service: 02/07/22 Narrative: Bilateral therapeutic medial branch block L3-L4 dorsal ramus L5 ? ?Informed consent was explained to the patient. All questions were explained and? answered.? The patient was taken inside the operating room where she was positioned prone on the operating table.? Time-out was performed delineating correct site, side, the nature of the procedure, patient's allergy, preoperative antibiotic if needed.? All operating room staff was participating in OR time-out procedure. ? ? The lower back was prepped with ChloraPrep and draped with sterile towels.? Sterilely draped C-arm was brought over the operating field and sq picture of L4-and L5 vertebra and S1 AREA were delineated on the screen.? Point of interest were delineated as connection of superior articular process of L4 and L5 vertebra bilaterally with corresponding transverse processes as well as connection of the sacral alae bilaterally with superior articular process of S1.? The projection of the point of interest to the skin were injected with the small amount of local anesthetic lidocaine 2% 1-1.5 cc.? After that 22 gauge 3- 1/2 inch spinal needle was driven sequentially to the points of interest in tunnel vision fashion. After needles gently contacted the bone at the point of interests the needle was injected with small amount of the contrast.? The injection of the contrast did not demonstrate any intravascular or intrathecal spread of the contrast.? After that injection of the? ropivacaine0.5%-1cc mixed with Kenalog was performed at each needle location.? total dose of Kenalog was 60 mg Upon completion of the injections? needle was? removed and sterile Band-Aids were applied.? The? patient was- taken outside of the operating room to recovery room where he recovered uneventfullyHe went home without immediate complications.??
[2022-02-07 15:57] VITALS: BP 98/56; PULSE 76; RESP 20; TEMP 36.2; O2SAT 96
[2022-02-07 16:12] VITALS: BP 123/80; BP 136/90; PULSE 71; PULSE 74; RESP 18; TEMP 36.1; O2SAT 97; O2SAT 98
== END 2022-02-07 16:28 | disposition home or self-care (01) ==
PROVIDERS: PCP Internal Medicine; Visit Provider Anesthesiology
PROC: (CPT 64493; principal; 2022-02-07 11:30)
DX: M47.816 Spondylosis without myelopathy or radiculopathy, lumbar region (principal); M54.50 Low back pain, unspecified; M62.830 Muscle spasm of back
CPT/HCPCS: 64493; 64494; J2250; J2795; J3010; J3301; Q9967

== ENCOUNTER 2022-02-26 11:07 | Outpatient (REF) | payer OTHER, SELFPAY ==
[2022-02-26 12:09] LABS: MANUAL DIFF FLAG NO
[2022-02-26 13:58] LABS: Basophils Percent Auto 0.3 % (0-2); Eosinophils Absolute Auto 0.1 X10*3/uL (0.0-0.4); Eosinophils Percent Auto 0.9 % (0-4); Hematocrit 43.3 % (42.0-52.0); Hemoglobin 14.3 g/dl (14.0-18.0); Imm Gran Abs Auto 0.04 X10*3/uL (0.00-0.03); Imm Gran Pct Auto 0.4 % (0.0-0.4); Lymphocytes Absolute Auto 2.9 X10*3/uL (1.2-4.9); Mean Corpuscular Hemoglobin 30.7 pg (27.0-33.0); Mean Corpuscular Volume 92.9 fL (80.0-98.0); Mean Platelet Volume 10.2 fL (9.4-12.4); Monocytes Absolute Auto 0.5 X10*3/uL (0.1-1.2); Monocytes Percent Auto 5.6 % (2-11); Neutrophils Absolute Auto 5.5 x10*3/uL (2.0-8.3); Neutrophils Percent Auto 60.8 % (45-73); Platelet Count 223 X10*3/uL (160-400); Red Blood Count 4.66 X10*6/uL (4.60-5.80); Red Cell Distribution Width 12.4 % (11.0-16.0); White Blood Count 9.1 X10*3/uL (4.8-10.8)
[2022-02-26 14:35] LABS: Alanine Aminotransferase 27 U/L (0-40); Albumin Level 4.7 g/dL (3.5-5.0); Alkaline Phosphatase 85 U/L (39-117); Anion Gap 13 (12-20); Aspartate Amino Transferase 18 U/L (5-37); Bilirubin Total 0.5 mg/dL (0.0-1.0); Blood Urea Nitrogen 19 mg/dL (9-16); Calcium 9.6 mg/dL (8.4-10.2); Carbon Dioxide 27 mmol/L (22-29); Chloride 104 mmol/L (96-108); Cholesterol 263 mg/dL; Estimated Glomerular Filt Rate > 60; Glucose Fasting 89 mg/dL (60-99); HDL Cholesterol 49 mg/dL; LDL Cholesterol Calculated 194 mg/dl; Potassium 4.5 mmol/L (3.3-5.1); Sodium 139 mmol/L (135-145); Total Protein 7.3 g/dL (6.5-8.0); Triglycerides 103 mg/dL
[2022-03-07 14:08] LABS: Testosterone, Free 43.7 pg/mL (35.0-155.0); Testosterone, Total 319 ng/dL (250-1100)
== END 2022-02-26 11:08 | disposition home or self-care (01) ==
LOC: HO.LAB 11:07
PROVIDERS: Absent Provider Internal Medicine; PCP Internal Medicine; Visit Provider Urology
DX: Z13.0 Encounter for screening for diseases of the blood and blood-forming organs and certain disorders involving the immune mechanism (principal); M54.9 Dorsalgia, unspecified; I10 Essential (primary) hypertension; E78.5 Hyperlipidemia, unspecified; N50.819 Testicular pain, unspecified; N20.0 Calculus of kidney
CPT/HCPCS: 36415; 80053; 80061; 84402; 84403; 85025; 99212

== ENCOUNTER → 2022-03-13 08:19 | Outpatient (BNVA) | payer OTHER, SELFPAY | PROVIDERS: PCP Internal Medicine; Visit Provider Anesthesiology | DX: M54.50 Low back pain, unspecified (principal); M62.830 Muscle spasm of back; M47.816 Spondylosis without myelopathy or radiculopathy, lumbar region | CPT/HCPCS: 99212 ==

== ENCOUNTER → 2022-08-15 14:52 | Outpatient (BNVA) | payer OTHER, SELFPAY | PROVIDERS: PCP Internal Medicine; Visit Provider Nurse Practitioner Family | DX: N20.0 Calculus of kidney (principal); N50.819 Testicular pain, unspecified; R53.83 Other fatigue | CPT/HCPCS: 99212 ==

== ENCOUNTER → 2022-09-04 13:36 | Outpatient (BNVA) | payer OTHER, SELFPAY | PROVIDERS: PCP Internal Medicine; Visit Provider Nurse Practitioner Family | DX: M54.50 Low back pain, unspecified (principal); M62.830 Muscle spasm of back; M47.816 Spondylosis without myelopathy or radiculopathy, lumbar region; M25.551 Pain in right hip | CPT/HCPCS: 99212 ==

== ENCOUNTER 2022-09-05 07:36 | Outpatient (REF) | payer OTHER, SELFPAY ==
--- NOTE | ~2022-09-05 | XR_ITS ---
EXAMINATION: XR HIP, RIGHT including pelvis CLINICAL INFORMATION: Right hip pain. COMPARISON: None available. TECHNIQUE: Two views of the right hip. Single frontal view of the pelvis. FINDINGS: The bony alignments are intact. The cortices are intact. Articular margins, joint space appear unremarkable. The soft tissues are unremarkable. Incidental note is made of partial sacralization of L5 on the left. Limited visualized part of the left hip shows nonspecific tiny calcification along the superolateral aspect of the acetabulum and also within the proximal superior medial aspect of the thigh. XR/XR hip RT w PEL1V IMPRESSION: Unremarkable radiographic appearance of the right hip. Incidental nonspecific calcification along the superolateral aspect of the left hip and proximal medial superior left thigh.
--- NOTE | ~2022-09-05 | US_ITS ---
EXAMINATION: US RETROPERITONEAL LIMITED (RENAL ONLY) CLINICAL INFORMATION: Calculus of kidney. COMPARISON: Renal ultrasound 12/12/2020 and 06/15/2020. TECHNIQUE: Real-time imaging of the kidneys. FINDINGS: RIGHT KIDNEY: 11.1 x 6.5 x 6.4 cm (SAG x AP x TRV). The kidney is normal in size, contour, and echogenicity. Renal cortical thickness is normal. No renal calculi or hydronephrosis. 2.9 x 2.2 x 2.6 cm simple exophytic cyst in the upper pole. No follow-up imaging is recommended. LEFT KIDNEY: 11.9 x 6.3 x 5.3 cm (SAG x AP x TRV). The kidney is normal in size, contour, and echogenicity. Renal cortical thickness is normal. No calculi or focal parenchymal lesions. No hydronephrosis. 0.3 x 0.2 x 0.3 cm echogenic focus is seen in the mid kidney and likely represents a nonobstructing calculus. US/US renal BI IMPRESSION: 1. No significant abnormality of the right kidney. 2. Probable 0.3 cm nonobstructing calculus in the mid left kidney.
[2022-09-11 10:33] LABS: Testosterone, Total 314 ng/dL (250-1100)
== END 2022-09-05 07:37 | disposition home or self-care (01) ==
LOC: HO.US 07:36
PROVIDERS: Absent Provider Nurse Practitioner Family; PCP Internal Medicine; Visit Provider Nurse Practitioner Family
DX: Z12.5 Encounter for screening for malignant neoplasm of prostate (principal); N40.0 Benign prostatic hyperplasia without lower urinary tract symptoms; N20.0 Calculus of kidney; M25.551 Pain in right hip; R53.83 Other fatigue
CPT/HCPCS: 36415; 73502; 76775; 84153; 84402; 84403

== ENCOUNTER 2022-10-16 10:53 | Day surgery (SDC) | payer OTHER, SELFPAY ==
[2022-10-13 16:01] VITALS: BMI 33.0
--- NOTE | 2022-10-15 12:36 | HO.ANESPROP2 ---
HPI - Anesthesia Eval Consult details Narrative: 46yo M for Bilateral L3-L4-DR L5 Medial Branch Radiofrequency AB s/p same 01/2022 with TIVA PMFSH Active Problems Active Problems: All Active Problems (Updated 09/04/22 @ 13:57 by KAYLAN Stahl) Right hip pain (Acute) Osteoarthritis cervical spine (Acute) Fatigue (Acute) Back pain (Acute) Skin lesion (Acute) Difficulty urinating (Acute) Body aches (Acute) Nephrolithiasis (Acute) Sleep disorder (Acute) Physical exam (Acute) Light headedness (Acute) Spermatocele (Acute) Depression (Acute) Orchalgia (Acute) Lumbar spondylosis (Acute) Muscle spasm of back (Acute) Cervical spondylosis (Acute) Lumbar radiculopathy (Acute) Low back pain (Acute) Lumbar facet arthropathy (Acute) Hyperlipidemia (Acute) Obesity (Acute) Anxiety (Acute) Past Medical History Medical History Anxiety Arthritis Depression Hyperlipidemia Low back pain Lumbar facet arthropathy Obesity Renal calculi Sleep disorder Family History Family History Father No problems noted. Mother No problems noted. Family history of problems with anesthesia: No Surgical History Surgical History H/O elbow surgery History of testicular surgery History of vasectomy History of Problems with Anesthesia: No Social History Social History Housing: House Are you a primary child care center administrator to a significant other at home: No Do you presently have visiting nurse or other home services: No Alcohol intake: never Patient Tobacco Use Status: Never used Tobacco e-Cigarette/Vaping Use: Never Used Second Hand Smoke Exposure: No Use of substances other than those prescribed or required for medical reasons: No Are you DNR?: No Advance Directives: No Advance Directives Information Provided: Yes Advance Directives on File: No service: Yes Current occupational status: employed Cognitive needs: No Hearing needs: No Vision needs: No Meds Allergies Allergy/AdvReac Type Severity Reaction Status Date / Time No Known Allergies Allergy Verified 09/04/22 13:47 Home Medications Medication Instructions Recorded Confirmed Last Taken Type loratadine 10 mg tablet (Claritin) 10 mg PO DAILY 10/11/21 10/16/22 01/06/22 History Exam Exam Date and Time: October 15, 2022 1236 Height,Weight and Vital Signs: Height 5 ft 9 in Weight 101.491 kg Assessment and Plan Assessment Anesthesia Assessment: Chart Reviewed Final Anesthetic Review Family History of Problems with Anesthesia: No History of Problems with Anesthesia: No
--- NOTE | ~2022-10-16 | FL_ITS ---
EXAMINATION: XR FLUOROSCOPY WITH IMAGES CLINICAL INFORMATION: L3-L4 DRL5 medial radiofrequency ablation. COMPARISON: None available. TECHNIQUE: Fluoroscopy Supervised By: Dr. Héctor Meyer. Fluoroscopy Time: 1.1 minutes. Cumulative Dose: 14.9 mGy. DAP: 0.260 Gycm2. Images: 4. FINDINGS: Images demonstrate probe placement adjacent to the bilateral lateral L3-L4 and L5 vertebrae. FL/FL guidance in OR IMPRESSION: Fluoroscopy guidance for pain management procedure.
--- NOTE | 2022-10-16 11:04 | P.CONAN_ITS ---
[facility] Active Problems Active Problems: All Active Problems (Updated 09/04/22 @ 13:57 by KAYLAN Stahl) Right hip pain (Acute) Osteoarthritis cervical spine (Acute) Fatigue (Acute) Back pain (Acute) Skin lesion (Acute) Difficulty urinating (Acute) Body aches (Acute) Nephrolithiasis (Acute) Sleep disorder (Acute) Physical exam (Acute) Light headedness (Acute) Spermatocele (Acute) Depression (Acute) Orchalgia (Acute) Lumbar spondylosis (Acute) Muscle spasm of back (Acute) Cervical spondylosis (Acute) Lumbar radiculopathy (Acute) Low back pain (Acute) Lumbar facet arthropathy (Acute) Hyperlipidemia (Acute) Obesity (Acute) Anxiety (Acute) Past Medical History Medical History Anxiety Arthritis Depression Hyperlipidemia Low back pain Lumbar facet arthropathy Obesity Renal calculi Sleep disorder Family History Family History Father No problems noted. Mother No problems noted. Family history of problems with anesthesia: No Surgical History Surgical History H/O elbow surgery History of testicular surgery History of vasectomy History of Problems with Anesthesia: No Social History Social History Housing: House Are you a primary primary care nurse practitioner to a significant other at home: No Do you presently have visiting nurse or other home services: No Alcohol intake: never Patient Tobacco Use Status: Never used Tobacco e-Cigarette/Vaping Use: Never Used Second Hand Smoke Exposure: No Advance Directives: No Advance Directives Information Provided: Yes service: Yes Current occupational status: employed Cognitive needs: No Hearing needs: No Vision needs: No Meds Allergies Allergy/AdvReac Type Severity Reaction Status Date / Time No Known Allergies Allergy Verified 09/04/22 13:47 Active Medications: Current Medications Lactated Ringer's (Lr) 1,000 mls @ 100 mls/hr IVCONT .Q10H [facility] Home Medications Medication Instructions Recorded Confirmed Last Taken Type loratadine 10 mg tablet (Claritin) 10 mg PO DAILY 10/11/21 10/16/22 01/06/22 History Exam Exam Date and Time: October 16, 2022 1104 Height,Weight and Vital Signs: Height 5 ft 9 in Weight 101.491 kg Airway Mallampati Class: II TM Dist: >3cm Neck ROM: Full Heart: RRR Lungs: CTA Assessment and Plan Final Anesthetic Review Family History of Problems with Anesthesia: No History of Problems with Anesthesia: No ASA Class: II Final Preanesthetic Review: Meds/Allgs Chart Reviewed, Consent Obtained/Reviewed and Anes Risks/Benef Reviewed Patient Risk: Low Procedure Risk: Low Anesthetic Plan Anesthetic Plan: MAC: Disposition: Standard PACU
[2022-10-16 11:23] VITALS: BP 134/87; PULSE 79; RESP 16; TEMP 36.1; O2SAT 98
--- NOTE | 2022-10-16 11:24 | MHC.SHP ---
Pre-Procedural Eval Section A Date of Service: 10/16/22 The patient is an INPATIENT: No Changes since office visit: Yes Patient answered all questions Section B Chief Complaint: Spondylosis without myelopathy or radiculopathy, l Details of Present Illness: as above Relevant Family History (Specify if Yes): No Relevant Social History: None Present Medications: None Medical History: No relevant PMH History of Previous Operations: No relevant previous surgery Allergies: Allergies Allergy/AdvReac Type Severity Reaction Status Date / Time No Known Allergies Allergy Verified 09/04/22 13:47 Review of Systems Sugical H&P ROS: Negative: Constitution, Cardiovascular, Respiratory, Neurological, Psychiatric, Hem-Onc, Allergic/Immunologic, Gastrointestinal, Genitourinary, Musculoskeletal, Integumentary, Endocrine and Eyes/Ears/Nose/Throat Exam Surgical H&P Exam: Normal: HEENT, Normal: Heart, Normal: Lungs, Normal: Extremities, Normal: Abdomen, Normal: Skin and Normal: Neurological Plan I have reviewed the history and physical and performed a pertinent physical examination on my patient. No changes have occurred unless specified. Time Spent With Patient Time: Total time managing care of this patient today ___5_ minutes.
[2022-10-16] MEDS: Lactated Ringers 1,000 ML 100 ML IVCONT (11:30)
--- NOTE | 2022-10-16 12:18 | W.PM.OPN ---
Operative Note Operative Note Date of Service: 10/16/22 Narrative: RFA L3-L4-DRL5 bilateral Informed consent was explained to the patient. All questions were explained and answered. The patient was taken inside the operating room where he was positioned prone on the operating table. ASA m-rs were applied,? the patient was sedated however he was able to communicate with me during the entire procedure. he was explained that having the procedure while awake would be safer, he was? able to answer the questions and respond to the commands. Time-out was performed delineating name and of the patient,? correct site, side, the nature of the procedure, patient's allergy, preoperative antibiotic if needed. All operating room staff was participating in OR time-out procedure. The lower back was prepped with ChloraPrep and draped with sterile towels. C-arm was brought over the operating field and sq picture of L4, L5 vertebra and S1 AREA were delineated on the screen. Point of interest were delineated as connection of superior articular process of? L4, L5 vertebra bilaterally with corresponding transverse processes as well as connection of the sacral alae bilaterally with superior articular process of S1 1st on the right and then on the left side.? ?The projection of the point of interest to the skin were injected with the small amount of local anesthetic lidocaine 2% 1-1.5 cc. After that 18 gauge 100 mm RFA canulas? were driven to the point of interest in oblique fashion. After needles gently contacted the bone the? sensory and motor tests were performed.The lateral images were obtained and position of the tips of the needles away from the foramina and presumable location of the somatic nerves was verified. Sensory response was appropriate and no motor response was detected in the patients feet lower legs or thighs. After that? at the point of interests the cannulas? were injected with small amount of ropivacaine 0.5% mixed with lidocaine 1%-1cc?-2cc. 90 seconds after the injection the energy application was performed at 89 degrees Centigrade for 90 second. After first energy application the canullas were rotated 180 degrees and energy application was repeated at the same setting.? Upon completion of the energy applications canullas were removed and sterile bandaids? were applied, The? patient was taken outside of the operating room to recovery room to recovery room.
--- NOTE | 2022-10-16 13:28 | P.BOP_ITS ---
Brief Operative Note Date of Service: 10/16/22 Pre-op diagnosis: spondylosis lumbar without myelo/radiculopathy. Post-op diagnosis: same Procedure: RFA L3- L4- L5 MB bilateral Surgeon: Héctor Meyer MD Anesthesia: MAC Was an Eye Glass Frame Polisher used for this Procedure?: No Estimated blood loss (mL): 4 Condition: stable Disposition: PACU
[2022-10-16 13:31] VITALS: BP 168/99; PULSE 85; RESP 16; TEMP 36.9; O2SAT 95
--- NOTE | 2022-10-16 13:34 | HO.POSTANES ---
Post Anesthesia Evaluation Post Anesthesia Evaluation Date of Service: 10/16/22 Vital Signs: Vital Signs Temp Pulse Resp BP Pulse Ox O2 Del Method 10/16/22 11:23 97.0 F 79 16 134/87 98 Room Air Anesthesia: Monitored Mental Status: Awake Pain Control: Satisfactory Nausea/Vomiting: None Hydration: Adequate Anesthesia-Related Issues: No Anes. Related Issues
[2022-10-16 13:46] VITALS: BP 156/98; PULSE 76; RESP 16; O2SAT 96
[2022-10-16 14:00] VITALS: BP 127/83; PULSE 80; RESP 16; O2SAT 97
[2022-10-16 14:15] VITALS: BP 139/88; PULSE 77; RESP 16; TEMP 36.1; O2SAT 97
== END 2022-10-16 14:46 | disposition home or self-care (01) ==
PROVIDERS: PCP Internal Medicine; Visit Provider Anesthesiology
PROC: (CPT 64635; principal; 2022-10-16 12:20)
DX: M47.816 Spondylosis without myelopathy or radiculopathy, lumbar region (principal); M54.50 Low back pain, unspecified; M62.830 Muscle spasm of back; M25.551 Pain in right hip; E66.9 Obesity, unspecified; Z68.39 Body mass index [BMI] 39.0-39.9, adult; E78.5 Hyperlipidemia, unspecified; F32.A Depression, unspecified; F41.1 Generalized anxiety disorder; Z79.899 Other long term (current) drug therapy; Z98.890 Other specified postprocedural states
CPT/HCPCS: 64635; 64636 ×2; J1885; J2250; J3010; J3301

== ENCOUNTER → 2022-10-16 10:53 | Outpatient (BNV) | payer OTHER, SELFPAY | PROVIDERS: PCP Internal Medicine; Visit Provider Anesthesiology | DX: M47.816 Spondylosis without myelopathy or radiculopathy, lumbar region (principal) | CPT/HCPCS: 64635; 64636 ==

== ENCOUNTER 2022-10-22 11:48 | Outpatient (AMB) | payer OTHER, SELFPAY ==
--- NOTE | 2022-10-22 11:49 | MHC.PC.OV ---
Vital Signs 10/22/22 11:51 Height 5 ft 9 in Weight 222 lb BMI 32.8 BP 124/80 Blood Pressure Location Rt brachial Position Sitting Pulse 74 Pulse Source Pulse Oximeter Pulse Oximetry (%) 97 Oxygen Delivery Method Room Air Intake Visit Reasons: Knee pain, neck pain, heel pain Intake Note: Patient is here today for knee, neck, shoulder and heel pain. Requesting Colonoscopy referral, lab order, xray for knee, shoulder and ankle. Rail Transportation Tabeler Required: No Licensed Prosthetist/Orthotist: Not Required per policy Accompanied by: Self / Same As Patient Allergies No Known Allergies Allergy (Verified 10/22/22 11:50) Medication List - Last Reconciled 10/22/22 by Mateusz Wynne MD loratadine (Claritin) 10 mg PO DAILY meloxicam 15 mg PO DAILY tizanidine 4 mg PO Q8H PRN tramadol 50 mg PO Q6H PRN Tobacco use date assessed: 10/22/22 Dental Screening Dental Screen Date: 10/22/22 Did you have a dental visit in the last 12 months?: Yes Did you have a dental problem in the last 6 months where you did not have access to dental care?: No Was dental information given to patient?: Patient has dentist HPI Knee pain, neck pain, heel pain HPI 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 Mother No problems noted. Social History Housing: House Are you a primary child day care teacher to a significant other at home: No Do you presently have visiting nurse or other home services: No Alcohol intake: never Patient Tobacco Use Status: Never used Tobacco e-Cigarette/Vaping Use: Never Used Second Hand Smoke Exposure: No service: Yes Current occupational status: employed Cognitive needs: No Hearing needs: No Vision needs: No Questionnaire PHQ-9 Over the last 2 weeks, how often have you been bothered by any of the following problems? 1. Little interest or pleasure in doing things: more than half the days 2. Feeling down, depressed, or hopeless: more than half the days 3. Trouble falling or staying asleep, or sleeping too much: several days 4. Feeling tired or having little energy: several days 5. Poor appetite or overeating: not at all 6. Feeling bad about yourself - or that you are a failure or have let yourself or your family down: not at all 7. Trouble concentrating on things, such as reading the newspaper or watching television: nearly every day 8. Moving or speaking so slowly that other people could have noticed. Or the opposite - being so fidgety or restless that you have been moving around a lot more than usual: not at all 9. Thoughts that you would be better off or of hurting yourself in some way: not at all Total score: 9 Source: Developed by Drs. Raul Capps, Yissel Alonzo, Casey Roca and colleagues, with an educational alexy from [employer]. Thrive Questionnaire Date Thrive assessed: 10/22/22 I am a: Patient What is your living situation today?: I have a steady place to live Within the past 12 months, did the food you bought not last and you didn't have the money to get more?: Never true Within the past 12 months, did you worry whether your food would run out before you got money to buy more?: Never true Do you have trouble paying for medicines?: No Do you have trouble getting transportation to medical appointments?: No Do you have trouble paying your heating and electricity bill?: No Do you have trouble taking care of your child, family member or friend?: No Do you have trouble with day-to-day activities such as bathing, preparing meals, shopping, managing finances, etc.?: No Are you currently unemployed and looking for a job?: No Are you interested in more education?: No Currently or been in a relationship where the following occur: no concerns reported AUDIT C Alcohol Use Questionnaire (AUDIT-C) 1. How often do you have a drink containing alcohol?: Never Total Score: 0 MAHIN-7 AMB Questionnaire MAHIN-7 Date MAHIN - 7 assessed: 10/22/22 Feeling nervous, anxious, or on edge: 3 = Nearly every day Not being able to stop or control worryin = Nearly every day Worrying too much about different things: 3 = Nearly every day Trouble relaxin = Nearly every day Being so restless that it is hard to sit still: 2 = More than half the days Becoming easily annoyed or irritable: 3 = Nearly every day Feeling afraid as if something awful might happen: 3 = Nearly every day Total MAHIN-7 score (0-4 normal; 5-9 mild; 10-14 moderate; 15-21 severe): 20 Source: Developed by Drs. Raul Capps, Yissel Alonzo, Casey Roca and colleagues, with an educational alexy from [employer]. Review of Systems Const Denies chills, Denies fatigue, Denies headache(s) and Denies weight loss Eyes Denies change in vision, Denies diplopia and Denies eye pain ENT Denies vertigo, Denies dizziness, Denies headache(s) and Denies nasal discharge Card Denies chest pain, Denies rapid heart rate and Denies dyspnea on exertion Resp Denies chest congestion, Denies cough, Denies pain with cough and Denies dyspnea on exertion GI Denies abdominal pain, Denies hematochezia and Denies change in bowel habits Musc Denies myalgias, Denies arthralgias and Denies joint swelling Skin/Breast Denies lesions and Denies unusual bruising Neuro Denies vertigo, Denies dizziness, Denies headache(s) and Denies focal weakness Endo Denies fatigue Physical exam (Primary Care) Vital Signs: Last Vital Signs Pulse 74 10/22/22 11:51 BP 124/80 10/22/22 11:51 Pulse Ox 97 10/22/22 11:51 Oxygen Delivery Method Room Air 10/22/22 11:51 BMI result Body Mass Index 32.8 Tobacco/Smoking Status: Tobacco use Status Tobacco use date assessed 10/22/22 10/22/22 11:58 Patient Tobacco Use Status Never used Tobacco 10/22/22 11:58 e-Cigarette/Vaping Use Never Used 10/22/22 11:58 PHQ-9: PHQ-9 Score PHQ-9: Total score 9 10/22/22 11:58 Thrive Assessment: Date of Thrive Assessment Date Thrive assessed 10/22/22 10/22/22 11:58 Currently or been in a relationship where the following occur: no concerns reported Const General: cooperative, healthy appearing and no acute distress Orientation/consciousness: oriented to person, oriented to place and oriented to time HENMT Head: Yes normal to inspection, Yes normocephalic and Yes atraumatic Mouth: Normal oral and palatal mucosa present and tongue normal Throat: Yes posterior oropharynx normal and Yes uvula midline Eyes General: appearance normal, both eyes and all related structures Neck Neck: Yes normal visual inspection, Yes full ROM and Yes no lymphadenopathy Thyroid: Thyroid normal Carotids: normal carotid upstroke Chest Chest palpation & inspection: normal inspection of the chest Resp Effort & Inspection: normal respiratory effort and able to speak in complete sentences Auscultation: clear to auscultation bilaterally Cardio Jugular venous distension: no JVD Palpation: normal PMI Rate: regular rate Rhythm: regular rhythm Heart sounds: S1 normal heart sound present and S2 normal heart sound present GI Inspection: Yes normal to inspection Palpation (GI): Soft to palpation and No hepatosplenomegaly present Auscultation: normal bowel sounds General: Yes no CVA tenderness Back/Spine/Pelvis Back: no CVA tenderness Skin General skin exam: no rashes or lesions noted Neuro General: oriented to person, oriented to place and oriented to time Extrem General: Yes normal to inspection and Yes full ROM Assessment and Plan Assessment & Plan (1) Foot pain: Code(s): M79.673 - Pain in unspecified foot Plan: podiatry referral (2) ADHD: Code(s): F90.9 - Attention-deficit hyperactivity disorder, unspecified type Plan: psych referral Orders: Orders Comprehensive [place]. Panel Fast Today N28.9 - Disorder of kidney and ureter, unspecified Lipid Panel Today E78.5 - Hyperlipidemia, unspecified Thyroid Stimulating Hormone Today E03.9 - Hypothyroidism, unspecified Complete Blood Count Auto Diff Today D64.9 - Anemia, unspecified XR foot LT 2V Today M79.672 - Pain in left foot XR foot RT 2V Today M79.673 - Pain in unspecified foot Referrals Ear/Nose/Throat Referral J34.89 - Other specified disorders of nose and nasal sinuses Gastroenterology Referral Z12.11 - Encounter for screening for malignant neoplasm of colon Podiatry Referral M79.673 - Pain in unspecified foot Medications: Refilled tramadol 50 mg PO Q6H PRN 8 tabs 0RF pain (scale score 1-3) Coding Level of Care Code Est Pt Level 4 (54152) Diagnoses Foot pain M79.673 ADHD F90.9
[2022-10-22 11:51] VITALS: BP 124/80; PULSE 74; O2SAT 97; BMI 32.8
== END 2022-10-22 12:08 | disposition home or self-care (01) ==
PROVIDERS: PCP Internal Medicine; Visit Provider Internal Medicine
DX: M79.673 Pain in unspecified foot (principal); F90.9 Attention-deficit hyperactivity disorder, unspecified type
CPT/HCPCS: 99214

== ENCOUNTER 2022-11-06 12:56 | Outpatient (AMB) | payer OTHER, SELFPAY ==
--- NOTE | 2022-11-06 13:28 | MHC.OFFVIS ---
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 Elizondo. He presents to the office today for follow-up of his nephrolithiasis, intermittent testicular pain, and urinary issues. He has a past medical history of hyperlipidemia, anxiety, obesity, lumbar radiculopathy, and sleep disorder. When asked patient reports to be doing and feeling well. Of note, patient was seen approximately 3 months ago at which time a retroperitoneal ultrasound was ordered as well as PSA and testosterone for further assessment evaluation. These results were reviewed with the patient today. Right kidney no renal calculi or hydronephrosis. 2.9 x 2.2 x 2.6 cm simple exophytic cyst in the upper pole. No follow-up imaging is recommended per radiology report. Left kidney with no lesions or hydroephrosis noted. 0.3 x 0.2 x 0.3 cm echogenic focus is seen in the mid kidney and likely represents a nonobstructing calculus. PSA 09/21--1.1. Testosterone levels 02/20--319 and 09/21--314. He reports significant improvement in baseline pain of bilateral testicles/scrotum since testicular denervation procedure with Dr. Gonzales. He does however continue with urinary urgency and urinary dribbling. When asked he denies urinary frequency, incontinence, nocturia, hematuria, dysuria, foul smelling urine, changes to urinary stream, flank pain, fever, and or chills. He does continue to report feeling fatigued and having some issues with his mood. Discussed at length importance of adequate sleep, healthy eating habits, weight loss, and daily exercise/brisk walking daily for further improvement in fatigue and mood as well as overall health and well-being. Previous Hx Bilateral testicular pain following vasectomy Underwent bilateral micro denervation 01/21 with good initial effect Will get baseline testosterone reviewed Nephrolithiasis Had been seen in [facility] emergency room. Still has persistent right flank pain. Imaging - 05/20 ultrasound with right hydro ureteral nephrosis but no stone seen. Presumed distal to imaging - 06/20 CAMILA right renal cyst 2cm - 01/20 renal ultrasound right renal cyst 2 cm no evidence of stones Therapeutic plan - increased fluid and watch salt PFSH Medical History Arthritis Sleep disorder Renal calculi Depression Lumbar facet arthropathy Low back pain Hyperlipidemia Obesity Anxiety Surgical History History of back surgery History of testicular surgery H/O elbow surgery History of vasectomy Family History Father No problems noted. Mother No problems noted. Social History Housing: House Are you a primary care navigator to a significant other at home: No Do you presently have visiting nurse or other home services: No Alcohol intake: never Patient Tobacco Use Status: Never used Tobacco e-Cigarette/Vaping Use: Never Used Second Hand Smoke Exposure: No service: Yes Current occupational status: employed Cognitive needs: No Hearing needs: No Vision needs: No Review of Systems Const All systems reviewed & are unremarkable except as noted in HPI and below Reports no additional complaints Eyes Reports no additional complaints ENT Reports no additional complaints Card Reports no additional complaints Resp Reports no additional complaints GI Reports no additional complaints Reports as per HPI Musc Reports no additional complaints Neuro Reports no additional complaints Psych Reports as per HPI Endo Reports no additional complaints Dick/Lymph Reports no additional complaints Aller/Immun Reports no additional complaints Physical Exam Const General: cooperative, healthy appearing, comfortable, no acute distress, well developed, alert and awake Orientation/consciousness: patient oriented x3 Limitations: no limitations HEENT Head: Yes normal to inspection, Yes normocephalic and Yes atraumatic Ears: hearing grossly normal bilaterally Eyes General: appearance normal, both eyes and all related structures Neck Neck: Yes normal visual inspection and Yes trachea midline Chest Chest palpation & inspection: normal inspection of the chest Resp Effort & Inspection: normal respiratory effort and able to speak in complete sentences Cardio Rate: regular rate GI Inspection: Yes normal to inspection General: Yes no CVA tenderness Back/Spine/Pelvis Back: no CVA tenderness Skin General skin exam: no rashes or lesions noted Neuro General: patient oriented x3 Extrem General: Yes normal to inspection Psych Appearance: grossly normal and well kempt Mental Status: mental status grossly normal Speech and movement: Normal speech and movement present and Clear speech present Affect: normal affect Attitude: cooperative Thought process: Normal thought process present Thought content: Normal thought content present Insight: Good insight present (Psych) Judgement: Good judgement present (Psych) Results AMB Urinalysis, Automated UA Leukoctes 0 Keisha/uL Last Edit by [employer] on 11/06/22 13:37 UA Nitrite Last Edit by [employer] on 11/06/22 13:37 UA Urobilinogen 0.2 mg/dL Last Edit by [employer] on 11/06/22 13:37 UA Protein 0 mg/dL Last Edit by [employer] on 11/06/22 13:37 UA pH 6.0 Last Edit by [employer] on 11/06/22 13:37 UA Blood 0 Kwasi/uL Last Edit by [employer] on 11/06/22 13:37 UA Specific [place] 1.030 Last Edit by [employer] on 11/06/22 13:37 UA Ketone Last Edit by [employer] on 11/06/22 13:37 UA Bilirubin 0 mg/dL Last Edit by [employer] on 11/06/22 13:37 UA Glucose 0 mg/dL Last Edit by [employer] on 11/06/22 13:37 Results Reviewed Results Reviewed: Laboratory Last Values Urine pH (Auto) 6.0 11/06/22 13:36 Specific [place] (Auto) 1.030 11/06/22 13:36 Urine Protein (Auto) 0 mg/dL 11/06/22 13:36 Glucose (UA)(Auto) 0 mg/dL 11/06/22 13:36 Urine Blood (Auto) 0 Kwasi/uL 11/06/22 13:36 Urine Bilirubin (Auto) 0 mg/dL 11/06/22 13:36 Urine Urobilinogen (Auto) 0.2 mg/dL 11/06/22 13:36 Leukocyte Esterase (Auto) 0 Keisha/uL 11/06/22 13:36 Date of Service: 09/05/22 EXAMINATION: US RETROPERITONEAL LIMITED (RENAL ONLY) RIGHT KIDNEY: 11.1 x 6.5 x 6.4 cm (SAG x AP x TRV). The kidney is normal in size, contour, and echogenicity. Renal cortical thickness is normal. No renal calculi or hydronephrosis. 2.9 x 2.2 x 2.6 cm simple exophytic cyst in the upper pole. No follow-up imaging is recommended. LEFT KIDNEY: 11.9 x 6.3 x 5.3 cm (SAG x AP x TRV). The kidney is normal in size, contour, and echogenicity. Renal cortical thickness is normal. No calculi or focal parenchymal lesions. No hydronephrosis. 0.3 x 0.2 x 0.3 cm echogenic focus is seen in the mid kidney and likely represents a nonobstructing calculus. IMPRESSION: 1. No significant abnormality of the right kidney. 2. Probable 0.3 cm nonobstructing calculus in the mid left kidney. Assessment & Plan Assessment & Plan (1) Urinary urgency: Code(s): R39.15 - Urgency of urination (2) Urinary dribbling: Code(s): N39.43 - Post-void dribbling (3) Nephrolithiasis: Code(s): N20.0 - Calculus of kidney Plan In office urinalysis results reviewed with the patient today; as noted above. Recent renal ultrasound results reviewed with the patient today; as noted above. Discussed, educated, instructed on the importance of drinking plenty of water daily. Discussed adding 1 oz of lemon juice to water daily. Discussed pelvic floor exercises to assist with reports of urinary dribbling. Recent PSA and testosterone results reviewed with the patient today. Start low-dose Cialis 5 mg daily as discussed and prescribed. Discussed bladder triggers/irritants for reports of urinary urgency. Discussed near future in office cystoscopy if symptoms persist and/or worsen. Discussed trial of alpha-lolita however patient would like to trial lifestyle modifications at this time Testosterone in 3 months Follow-up in 3 months with lab to be completed prior; or sooner with any issues, concerns, and or questions. Orders: Orders AMB Urinalysis Automated Today Z13.9 - Encounter for screening, unspecified Testosterone, Free/Total 3 Months E29.1 - Testicular hypofunction Medications: New tadalafil (Cialis) 5 mg PO DAILY 90 days 90 tabs 1RF Patient Instructions: The patient had an opportunity to ask questions regarding the treatment plan. All questions were answered. Physical exam, labs, and imaging were discussed and reviewed in detail. As well as risks, benefits, and discussion of treatment choices. No major barriers to understanding were identified. The patient expressed understanding and agreement with the above treatment plan. The patient was made aware they should contact our office by phone for worsening of their current condition, the appearance of new symptoms, or with any questions or concerns. Compliance is encouraged with any medications and follow up testing that is ordered. It is a privilege to be allowed the opportunity to participate in? your urological care.? Again, if you have any questions or concerns If you have any questions or concerns please do not hesitate to contact me. The office is [phone]. This note is constructed using voice recognition software. While every effort has been made to ensure accuracy tester equipment errors may have been included. Yours sincerely, ASHELY Mondragon Coding Level of Care Code Est Pt Level 4 (49460) Diagnoses Urinary urgency R39.15 Urinary dribbling N39.43 Nephrolithiasis N20.0
== END 2022-11-06 14:16 | disposition home or self-care (01) ==
PROVIDERS: PCP Internal Medicine; Visit Provider Nurse Practitioner Family
DX: R39.15 Urgency of urination (principal); N39.43 Post-void dribbling; N20.0 Calculus of kidney; Z13.9 Encounter for screening, unspecified
CPT/HCPCS: 99214

== ENCOUNTER → 2022-11-06 12:56 | Outpatient (BNVA) | payer OTHER, SELFPAY | PROVIDERS: PCP Internal Medicine; Visit Provider Nurse Practitioner Family | DX: N20.0 Calculus of kidney (principal); N39.43 Post-void dribbling; R39.15 Urgency of urination | CPT/HCPCS: 81003; 99212 ==

== ENCOUNTER 2022-11-18 11:09 | Outpatient (AMB) | payer OTHER, SELFPAY ==
--- NOTE | 2022-11-18 11:19 | A.OFFVIS_ITS ---
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 Meyer. Patient reports initially he has been receiving about 50% pain relief for his axial low back with improved daily function and sleep. He reports acute exacerbation of his radicular back symptoms on Thursday with back pain radiating into his lateral hips and into anterior and posterior legs with numbness, tingling, and intermittent weakness. Denies any inciting event, trauma, injury or falls. He rates his pain at 8/10 and is unable to complete back exam today due to significant pain. Patient also reports bilateral anterior thigh heaviness since RFA. He reports any movement in his back exacerbate his symptoms, worse with bending and sitting. He has been standing for most of today's visit. Patient has been managing his symptoms with tizanidine, ice/heat therapy and NSAIDs with minimal improvement. Per recent PCP visit in end of September, patient was prescribed tramadol 50 mg #8 tabs for knee pain, neck pain, heel pain but was not aware of script. We will proceed with short oral steroid therapy and lumbar spine MRI to assess for neural integrity and compression. Patient denies any bladder or bowel incontinence or saddle anesthesia. PRIOR: Patient presents today for follow up for axial low back pain. He was last seen in our office by Dr. Meyer for procedure discussion. Patient reports therapeutic lumbar medial branch injections were helpful for over 3 months pain relief but he is interested in more longer and sustained pain relief. We reviewed lumbar medial branch Sprint PNS trial and RFA procedures today. Patient had successful lumbar medial branch RFA in 2011. Patient is not interested in Sprint device at this time. He also reports intermittent right hip discomfort, expecially during biking. His hip range of motions are preserved without any radiating or referred hip or groin pain. Denies any fever, abdominal or groin pain, weakness, bowel or bladder incontinence or saddle anesthesia. PRIOR 03/13/22 Dr. Meyer: Kyle is today in my office after the therapeutic medial branch block which was perform on 02/07/2022. Still reports 90% pain relief for the past 1 month. 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 Of the recommendations were carefully explained to the patient also explained the patient alternatives to treat his pain with radiofrequency ablation versus peripheral nerve stimulations print he reported in the in the past he received significant pain relief from diagnostic and therapeutic injections. He had diagnostic injections he is thinking about performing sprint in the future when his pain will come back. PRIOR: Patient is a pleasant 45 years old who serves [employer] presents today for evaluation of chronic low back pain. 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 His pain is mostly axial that spreads across his lower back and with heavy duty activities, especially running will lock up and presents as shooting pain with numbness and tingling with radiation into his right posterior thigh but not below the knee level. Patient also reports intermittent neck pain with significant muscle stiffness and spasms in his cervical and lumbar paraspinals. Since 2009, patient has been receiving annual lumbar and cervical injections, including lumbar RFA in multiple states, including [facility] in [place], [place]. His main concern is worsening back pain with running with constant impact after which his back pain locks up and takes over one week to recover. Patient denies any fever, chills, malaise, abdominal or groin pain, weakness, bowel or bladder incontinence or saddle anesthesia. Patient describes his pain as constant aching and burning in his lower back and pins and needles sensations in his right posterior thigh. Pain has been interfering with his daily activities and functioning, sleep, mood, social interactions and quality of life. Previously the patient has been managing his pain with meloxicam, Tylenol, ice and heat therapy, stretching, methocarbamol and short term tramadol. He reports methocarbamol has been helpful in the past. He completed physical therapy through [facility] in 2020 with no improvement in his symptoms. Patient reports he has tried a TENS unit on his elbow in the past and is interested in obtaining his personal unit. Denies chiropractic manipulation, acupuncture, massage or aqua therapy. No previous back surgery. Most recent lumbar spine MRI was done in 2017 at [place], [place] . We will send a request for the imaging report. Today?s lumbar spine imaging with oblique view was unremarkable. Patient reports lumbar ablation has been effective and he will consider diagnostic and therapeutic injections as well. COUNT INCLUDES [facility] Medical History Arthritis Sleep disorder Renal calculi Depression Lumbar facet arthropathy Low back pain Hyperlipidemia Obesity Anxiety Surgical History History of back surgery History of testicular surgery H/O elbow surgery History of vasectomy Family History Father No problems noted. Mother No problems noted. Social History Housing: House Are you a primary youth care professional to a significant other at home: No Do you presently have visiting nurse or other home services: No Alcohol intake: never Patient Tobacco Use Status: Never used Tobacco e-Cigarette/Vaping Use: Never Used Second Hand Smoke Exposure: No service: Yes Current occupational status: employed Cognitive needs: No Hearing needs: No Vision needs: No Review of Systems Const All systems reviewed & are unremarkable except as noted in HPI and below Neuro Denies Abnormal speech present and Denies Sensory deficit (Neuro) Physical Exam Vital Signs: Last Vital Signs Pulse 94 11/18/22 11:26 BP 124/93 H 11/18/22 11:26 Pulse Ox 98 11/18/22 11:26 Oxygen Delivery Method Room Air 11/18/22 11:26 BMI result Body Mass Index 36.0 General: Appears afebrile. Alert and oriented. Mood and affect appropriate. Follows and participates in conversation appropriately. Respiratory effort is unlabored. No cough. Able to transition from sit to stand unassisted. Ambulates with bilaterally normal heel strike and toe off. Back/Spine/Pelvis Other: Antalgic gait. No limping. Lumbar extension and flexion reproduces axial low back pain. Demonstrates 5/5 strength of quadriceps bilaterally as well as flexion/dorsiflexion of bilateral feet against resistance. 2+ pedal pulses bilaterally. Facet loading test positive bilaterally. Lissa sign positive bilaterally. Unable to proceed with exam due to significant pain. Patient cannot tolerate sitting and has been standing most of the visit in mildly flex forward position. Cervical Spine: cervical ROM normal and No Cervical spine tenderness Thoracic/Lumbar Spine: thoracic and lumbar spine normal to inspection, No Thoracic/lumbar spine scar(s), pain with thoraco-lumbar ROM, paraspinal muscle tenderness, thoraco-lumbar ROM limited, No thoracic spinal tenderness and lumbar spinal tenderness Pelvis: no buttock tenderness Sacroiliac joints: bilaterally tender to palpation Neuro General: moves all extremities, Normal light touch and pain sensation, no focal motor deficits and deep tendon reflexes 2+ bilaterally Cognition (Neuro): normal cognition Speech: No Abnormal speech present Gait exam (Neuro): Antalgic gait present and No Assistive device used Motor exam (neuro): 5/5 motor strength present throughout, no tremor noted and Motor abnormalities not present Sensory Exam: No Sensory deficit (Neuro) Results Reviewed Results Reviewed: MR LUMBAR SPINE WITHOUT CONTRAST 11/20/21 FINDINGS: There is transitional lumbosacral anatomy. There is partial sacralization of L5 which demonstrates a broad transverse process on the left which articulates with the sacrum. The last well-formed disc space is designated L5-S1. Normal anatomic alignment. No suspicious marrow signal or focal osseous lesion. The vertebral body heights are maintained. The intervertebral discs are of normal height and signal. The conus medullaris terminates at the level of L1-L2. The distal spinal cord is normal in appearance. The cauda equina nerve roots appear normal. No significant abnormalities of the paraspinal musculature.. Limited evaluation of the intra-abdominal structures without significant abnormalities. The abdominal aorta is of normal contour and caliber. SPINAL LEVELS: L1-L2: No significant spinal canal or neuroforaminal narrowing. L2-L3: No significant spinal canal or neuroforaminal narrowing. L3-L4: No significant spinal canal or neuroforaminal narrowing. Mild to moderate facet arthropathy. L4-L5: No significant spinal canal or neuroforaminal narrowing. Moderate facet arthropathy. L5-S1: No significant spinal canal or neuroforaminal narrowing. Mild to moderate facet arthropathy IMPRESSION: 1. Transitional lumbosacral anatomy with partial sacralization of L5 on the left 2. Mild to moderate lower lumbar facet arthropathy, worst at L4-L5. Otherwise unremarkable exam. XR LUMBOSACRAL SPINE WITH OBLIQUES 10/11/21 FINDINGS: Bone alignment is normal. No fracture or dislocation is seen. Disc spaces are normal. No instability on flexion-extension views is seen. No pars defect is seen. IMPRESSION: Unremarkable examination. Assessment & Plan Assessment & Plan (1) Lumbar spondylosis: Code(s): M47.816 - Spondylosis without myelopathy or radiculopathy, lumbar region (2) Lumbar radiculopathy: Code(s): M54.16 - Radiculopathy, lumbar region (3) Muscle spasm of back: Code(s): M62.830 - Muscle spasm of back Plan MRI of the lumbar spine to assess for neural integrity and compression given exacerbation of low back pain with bilateral radiculopathy and decreased functioning. Script provided for Medrol Vito to alleviate his pain. Patient is aware to call if pain worsens or if he develops any red flag symptoms to seek emergency care. Patient denies any cauda equina syndrome symptoms at this time. All questions and concerns have been answered and the patient agreed with the plan. Follow up for MRI results and sooner as needed. Orders: Orders MR lumbar spine wo con Today M47.816 - Spondylosis without myelopathy or radiculopathy, lumbar region, M54.16 - Radiculopathy, lumbar region Medications: New methylprednisolone (Medrol (Vito)) PO PER PKG DIR 21 ea 0RF Coding Level of Care Code Est Pt Level 4 (96738) Diagnoses Lumbar spondylosis M47.816 Lumbar radiculopathy M54.16 Muscle spasm of back M62.830
[2022-11-18 11:26] VITALS: BP 124/93; PULSE 94; O2SAT 98; BMI 36.0
== END 2022-11-18 11:42 | disposition home or self-care (01) ==
PROVIDERS: PCP Internal Medicine; Visit Provider Nurse Practitioner Family
DX: M47.26 Other spondylosis with radiculopathy, lumbar region (principal); M62.830 Muscle spasm of back
CPT/HCPCS: 99214

== ENCOUNTER → 2022-11-18 11:09 | Outpatient (BNVA) | payer OTHER, SELFPAY | PROVIDERS: PCP Internal Medicine; Visit Provider Nurse Practitioner Family | DX: M47.816 Spondylosis without myelopathy or radiculopathy, lumbar region (principal); M54.16 Radiculopathy, lumbar region; M62.830 Muscle spasm of back | CPT/HCPCS: 99212 ==

== ENCOUNTER 2022-12-31 18:06 | Outpatient (REF) | payer OTHER, SELFPAY ==
--- NOTE | ~2022-12-31 | MR_ITS ---
EXAMINATION: MR LUMBAR SPINE WITHOUT CONTRAST CLINICAL INFORMATION: Radiculopathy COMPARISON: MRI of lumbar spine 11/20/2021 TECHNIQUE: MRI of the lumbar spine was obtained using routine sequences without contrast. FINDINGS: Redemonstration of transitional lumbosacral anatomy with hypertrophy left L5 transverse process articulating with the left sacrum. The L5-S1 disc space can be seen on image 38, series 5. Normal lumbar lordosis is preserved. No significant spondylolisthesis. Vertebral body heights are maintained. There is no suspicious osseous lesion. The intervertebral disc space heights are normal. Level by level detail as follows: L1-L2: No spinal canal or neural foraminal stenosis. L2-L3: No spinal canal or neural foraminal stenosis. L3-L4: Shallow annular disc bulge and [id number] bilateral facet arthrosis. No spinal canal or neural foraminal stenosis. L4-L5: Shallow annular disc bulge with moderate bilateral facet arthrosis. No spinal canal stenosis. Stable mild right without significant left neural foraminal encroachment. L5-S1: Mild to moderate bilateral facet arthrosis. No spinal canal or significant neural foraminal stenosis. The conus medullaris terminates at the level of inferior L1. The distal spinal cord is normal in appearance. . No epidural fluid collection, hematoma, or mass. No significant abnormalities of the paraspinal musculature. Simple appearing bilateral renal cyst requiring further imaging follow-up. The abdominal aorta is of normal contour and caliber. MR/MR lumbar spine wo con IMPRESSION: 1. 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 2. Mild lumbar spondylosis without significant spinal canal stenosis or high-grade neural foraminal stenosis. Stable mild right neural foraminal encroachment at L4-L5.
== END 2022-12-31 18:07 | disposition home or self-care (01) ==
LOC: HO.MRI 18:06
PROVIDERS: PCP Internal Medicine; Visit Provider Nurse Practitioner Family
DX: M47.816 Spondylosis without myelopathy or radiculopathy, lumbar region (principal); M54.16 Radiculopathy, lumbar region
CPT/HCPCS: 72148

== ENCOUNTER 2023-01-19 14:15 | Emergency (ER) | payer OTHER, SELFPAY ==
[2023-01-19 14:26] VITALS: BP 147/106; PULSE 98; RESP 20; TEMP 36.5; O2SAT 98; BMI 33.7
--- NOTE | 2023-01-19 14:29 | ED_ITS ---
HPI - General Adult General Chief complaint: General Medical Stated complaint: head pressure Time Seen by Provider: 01/19/23 16:09 Source: patient Mode of arrival: ambulatory Limitations: no limitations History of Present Illness HPI narrative: Patient is a 47 year old assigned male at with a history of ADHD presenting to the emergency department today with bilateral ear blockage, head pressure, and a cough. Patient states that he had symptoms before his flight but he was on a flight yesterday and ever since has felt increased pressure in his head and behind his ears. Patient denies any dizziness, lightheadedness, abdominal pain, nausea, vomiting, fever, chills, blurry vision, double vision, loss of vision, chest pain, difficulty breathing, shortness of breath, back pain, night sweats, pain with urination, increased urinary frequency, increased urinary urgency, blood in his urine or stool, syncope or a near syncopal episode, recent trauma or falls, bowel incontinence, bladder incontinence, bowel retention, bladder retention, or any other complaints at this time. Onset (ago): day(s) Severity: mild Severity scale (1-10): 3 Quality: aching Pain Consistency: constant Relieving factors: none Exacerbating factors: none Associated symptoms: cough Treatments prior to arrival: none Related Data Home Medications Medication Instructions Recorded Confirmed loratadine 10 mg tablet (Claritin) 10 mg PO DAILY 10/11/21 10/22/22 Previous Rx's Medication Instructions Recorded tizanidine 4 mg tablet 4 mg PO Q8H PRN for muscle spasm 05/09/22 #90 tabs meloxicam 15 mg tablet 15 mg PO DAILY #90 tabs 08/18/22 tadalafil 5 mg tablet (Cialis) 5 mg PO DAILY 90 days #90 tabs 11/06/22 methylprednisolone 4 mg tablets in See Rx Instructions PO PER PKG DIR 11/18/22 a dose pack (Medrol (Vito)) #21 ea tramadol 50 mg tablet 50 mg PO Q6H PRN pain (scale score 11/18/22 1-3) #8 tabs Allergies Allergy/AdvReac Type Severity Reaction Status Date / Time No Known Allergies Allergy Verified 11/18/22 11:26 Review of Systems Constitutional: Constitutional: Reports no additional constitutional complaints, Denies chills, Denies fever(s), Reports headache(s) and Denies night sweats Eyes: Eyes: Reports no additional eye complaints, Denies blurry vision, Denies change in vision, Denies diplopia, Denies eye discharge, Denies loss of vision and Denies eye pain ENT: Denies dizziness and Reports headache(s) Cardiovascular: Cardiovascular: Reports no additional cardiovascular complaints, Denies chest pain, Denies lightheadedness, Denies Loss of Consciousness and Denies dyspnea Respiratory: Respiratory: Reports no additional respiratory complaints, Reports cough and Denies dyspnea Gastrointestinal: Gastrointestinal: Reports no additional gastrointestinal complaints, Denies abdominal pain, Denies melena, Denies hematochezia, Denies change in bowel habits and Denies change in stool character Genitourinary: Genitourinary: Reports no additional male genitourinary complaints, Denies hematuria, Denies oliguria, Denies difficulty urinating, Denies dysuria, Denies urinary frequency, Denies urinary hesitancy, Denies urinary incontinence and Denies urinary urgency Musculoskeletal: Musculoskeletal: Reports no additional musculoskeletal complaints, Denies numbness and Denies tingling Neurologic: Denies dizziness, Reports headache(s), Denies loss of vision, Denies numbness and Denies tingling Psychiatric: Psychiatric: Reports no additional psychiatric complaints Endocrine: Endocrine: Reports no additional endocrine complaints Hematologic/Lymphatic: Hematologic/Lymphatic: Reports no additional hematolo gic/lymphatic complaints Allergic/Immunologic: Allergic/Immunologic: Reports no additional allergic/immunologic complaints [facility] Past Medical History Attestation statement: The following information was validated with the patient. Source: old records reviewed and nursing notes reviewed Medical History Urinary dribbling Urinary urgency Foot pain Right hip pain Fatigue Muscle spasm of back Orchalgia Light headedness Physical exam Body aches Difficulty urinating Skin lesion Back pain Arthritis Sleep disorder Renal calculi Depression Lumbar facet arthropathy Low back pain Hyperlipidemia Obesity Anxiety Surgical History (Reviewed 01/19/23 @ 17: by JYOTI Curtis) History of back surgery History of testicular surgery H/O elbow surgery History of vasectomy Family History Family History Father No problems noted. Mother No problems noted. Social History Social History (Reviewed 01/19/23 @ 17: by JYOTI Curtis) Housing: House Are you a primary pet care worker to a significant other at home: No Do you presently have visiting nurse or other home services: No Alcohol intake: never Patient Tobacco Use Status: Never used Tobacco e-Cigarette/Vaping Use: Never Used Second Hand Smoke Exposure: No Advance Directives: No Advance Directives Information Provided: No service: Yes Current occupational status: employed Cognitive needs: No Hearing needs: No Vision needs: No Physical Exam ED Vital Signs: Vital Signs - 24 hr 01/19/23 14:26 Temperature 97.7 F Pulse Rate 98 Respiratory Rate 20 Blood Pressure 147/106 H Pulse Oximetry 98 Oxygen Delivery Method Room Air BMI result Body Mass Index 33.7 Const General: cooperative, no acute distress, alert and awake Nutritional Appearance: well nourished Orientation/consciousness: patient oriented x3 Limitations: no limitations HENMT Head: Yes normal to inspection and Yes atraumatic Ears: hearing grossly normal bilaterally, external ears normal and other (fluid behind bilateral TMs) General nose exam: Normal external nose present, no nasal discharge noted and no epistaxis Face and sinus: Yes normal facial exam, No abrasion and No laceration Mouth: Normal oral and palatal mucosa present, no drooling and no muffled voice Eyes General: appearance normal, both eyes and all related structures Periorbital: periorbital findings normal Eyelids: Yes eyelids normal Conjunctivae: conjunctivae normal Pupils: Equal, round and reactive pupils present EOM: EOMs intact bilaterally Neck Neck: Yes normal visual inspection, Yes full ROM and Yes no lymphadenopathy Chest Chest palpation & inspection: normal inspection of the chest Resp Effort & Inspection: normal respiratory effort and able to speak in complete sentences GI Inspection: Yes normal to inspection Neuro General: patient oriented x3 and moves all extremities Cranial nerves: Yes Equal, round and reactive pupils present Cognition (Neuro): normal cognition Motor exam (neuro): 5/5 motor strength present throughout Sensory Exam: Normal double simultaneous stimulation for sensation Coordination: [id number] test normal Extrem General: Yes normal to inspection, Yes full ROM and Yes capillary refill normal Psych Appearance: grossly normal Mental Status: mental status grossly normal Affect: normal affect Attitude: cooperative Thought process: Normal thought process present Thought content: Normal thought content present Insight: Good insight present (Psych) Course Course Course Narrative: RME performed by Lea Garcia PA-C. Patient is a 47 year old assigned male at presenting to the emergency department with a cough and bilateral ear fullness. Swabs ordered. Patient placed back in the waiting room pending room availability and results. Medications Administered Discontinued Medications Generic Name Dose Route Start Last Admin Trade Name Mary PRN Reason Stop Dose Admin Dexamethasone Sodium Phosphate 10 mg 01/19/23 16:14 01/19/23 16:34 Dexamethasone Sod Phosphate 10 Mg/Ml Vial PO 01/19/23 16:15 10 mg ONCE ONE Administration Medical Decision Making Medical Decision Making [facility] Narrative: Patient is a 47 year old assigned male at with a history of ADHD presenting to the emergency department today with head pressure, a cough, and b locked ears. Patient's physical exam was as noted in the physical exam portion of this note. Patient's RSV and influenza tests were negative. Patient's COVID- 19 test is positive. I explained my physical exam findings as well as all test results to the patient. I answered all questions asked by the patient. I stressed the importance of the patient taking his medication as prescribed. I stressed the importance of the patient following up with his primary care provider. I stressed the importance of the patient returning to the emergency department immediately if his symptoms were to worsen or if he were to develop any dizziness, shortness of breath, difficulty breathing, chest pain, blurry vision, loss of vision, nausea, vomiting, abdominal pain, fever, chills, back pain, or any other complaints. Patient verbalized agreement and understanding with this treatment plan and discharge. Differential Diagnosis Differential Diagnoses: The differential diagnosis associated with the presentation includes COVID-19 Influenza RSV Lab Data [facility] Lab Attestation statement: I reviewed the patient's lab results. My interpretation of these results are in the MDM Rationale portion of this note. Labs: Lab Results 01/19/23 Range/Units 14:46 Influenza Type A (PCR) NEGATIVE (Negative) Influenza Type B (PCR) NEGATIVE (Negative) RSV RNA Qual (PCR) NEGATIVE (Negative) SARS-CoV-2 RNA (RT-PCR) POSITIVE A (Negative) S. pyogenes GrpA DARRELL Negative (Negative) Discharge Plan Discharge Clinical Impression: COVID-19, ETD (eustachian tube dysfunction) Patient Disposition: Home, Self-Care Instructions: COVID-19 (Coronavirus Disease 2019) (ED) Additional Instructions: Follow up with your primary care provider. If the pressure in your ears continues, follow up with an ENT specialist. You may use OTC Flonase. Return to the emergency department immediately if your symptoms worsen or if you develop any dizziness, shortness of breath, difficulty breathing, chest pain, blurry vision, loss of vision, nausea, vomiting, abdominal pain, fever, chills, back pa in, or any other complaints. Prescriptions: No Action tizanidine 4 mg tablet 4 mg PO Q8H PRN (Reason: for muscle spasm) Qty: 90 0RF meloxicam 15 mg tablet 15 mg PO DAILY Qty: 90 8RF tramadol 50 mg tablet 50 mg PO Q6H PRN (Reason: pain (scale score 1-3)) Qty: 8 0RF loratadine [Claritin] 10 mg tablet 10 mg PO DAILY tadalafil [Cialis] 5 mg tablet 5 mg PO DAILY 90 Days Qty: 90 1RF methylprednisolone [Medrol (Vito)] 4 mg tablets,dose pack See Rx Instructions PO PER PKG DIR Qty: 21 0RF Rx Instructions: PO PER PKG DIR Referrals: Mateusz Wynne MD [Primary Care Provider] - Shravan Bowles [Physician] - (If the pressure continues for another 1 week, call to establish and follow up with an ENT.) Interventions: ED Discharge Assessment Last Done: 01/19/23 16:41 Discharge Date/Time: 01/19/23 16:42 Print Language: Bruneian
[2023-01-19 14:59] LABS: IDNOW Serial# 08D9AD1C; Strep A Nucleic Acid Negative (Negative)
[2023-01-19 15:31] LABS: Influenza A PCR NEGATIVE (Negative); Influenza B PCR NEGATIVE (Negative); Resp Syncy Virus RNA Qual PCR NEGATIVE (Negative); SARS COV2 PCR INHOUSE POSITIVE (Negative)
[2023-01-19] MEDS: dexAMETHasone sod phosphate 10 MG/ML VIAL PO (16:34)
--- NOTE | 2023-01-19 16:41 | PC.NURSE ---
pt medicated per MAR.
== END 2023-01-19 16:42 | disposition home or self-care (01) ==
PROVIDERS: Physician Assistant Medical; Emergency Provider Student in an Organized Health Care Education/Training Program; PCP Internal Medicine
DX: U07.1 COVID-19 (principal); H68.103 Unspecified obstruction of Eustachian tube, bilateral
CPT/HCPCS: 0241U; 87651; 99282; 99283; J1100

== ENCOUNTER 2023-01-26 13:48 | Outpatient (AMB) | payer OTHER, SELFPAY ==
--- NOTE | 2023-01-26 13:50 | MHC.OFFVIS ---
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 He in no acute distress and back pain consistent facetogenic components. He reports back pain radiates across his lower spine and sacral regions, into his buttocks and posterior thighs but not below knee levels. SLR testing was negative bilaterally today. He continues to receive about 50% pain relief from bilateral lumbar medial branch RFA on 10/16/22. Patient attributes his recent back symptoms due to new medication Cialis and has noticed improved pain symptoms after stopping the medication. He has been taking meloxicam with partial pain relief. Denies any recent cough, cold, infection, fever or other significant changes in medical history since last office visit. Review of EMR noted for recent [facility] visit for head pressure. He was positive for COVID-19, but negative for Influenza and RSV. PRIOR: Patient presents today for follow up status post Bilateral L3-L4 DR L5 Medial Branch RFA on 10/16/[address] Meyer. Patient reports initially he has been receiving about 50% pain relief for his axial low back with improved daily function and sleep. He reports acute exacerbation of his radicular back symptoms on Thursday with back pain radiating into his lateral hips and into anterior and posterior legs with numbness, tingling, and intermittent weakness. Denies any inciting event, trauma, injury or falls. He rates his pain at 8/10 and is unable to complete back exam today due to significant pain. Patient also reports bilateral anterior thigh heaviness since RFA. He reports any movement in his back exacerbate his symptoms, worse with bending and sitting. He has been standing for most of today's visit. Patient has been managing his symptoms with tizanidine, ice/heat therapy and NSAIDs with minimal improvement. Per recent PCP visit in end of September, patient was prescribed tramadol 50 mg #8 tabs for knee pain, neck pain, heel pain but was not aware of script. We will proceed with short oral steroid therapy and lumbar spine MRI to assess for neural integrity and compression. Patient denies any bladder or bowel incontinence or saddle anesthesia. PRIOR: Patient presents today for follow up for axial low back pain. He was last seen in our office by Dr. Meyer for procedure discussion. Patient reports therapeutic lumbar medial branch injections were helpful for over 3 months pain relief but he is interested in more longer and sustained pain relief. We reviewed lumbar medial branch Sprint PNS trial and RFA procedures today. Patient had successful lumbar medial branch RFA in 2011. Patient is not interested in Sprint device at this time. He also reports intermittent right hip discomfort, expecially during biking. His hip range of motions are preserved without any radiating or referred hip or groin pain. Denies any fever, abdominal or groin pain, weakness, bowel or bladder incontinence or saddle anesthesia. PRIOR 03/13/22 Dr. Meyer: Kyle is today in my office after the therapeutic medial branch block which was perform on 02/07/2022. Still reports 90% pain relief for the past 1 month. 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 Of the recommendations were carefully explained to the patient also explained the patient alternatives to treat his pain with radiofrequency ablation versus peripheral nerve stimulations print he reported in the in the past he received significant pain relief from diagnostic and therapeutic injections. He had diagnostic injections he is thinking about performing sprint in the future when his pain will come back. PRIOR: Patient is a pleasant 45 years old who serves [employer] presents today for evaluation of chronic low back pain. 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 His pain is mostly axial that spreads across his lower back and with heavy duty activities, especially running will lock up and presents as shooting pain with numbness and tingling with radiation into his right posterior thigh but not below the knee level. Patient also reports intermittent neck pain with significant muscle stiffness and spasms in his cervical and lumbar paraspinals. Since 2009, patient has been receiving annual lumbar and cervical injections, including lumbar RFA in multiple states, including [facility] in [place], [place]. His main concern is worsening back pain with running with constant impact after which his back pain locks up and takes over one week to recover. Patient denies any fever, chills, malaise, abdominal or groin pain, weakness, bowel or bladder incontinence or saddle anesthesia. Patient describes his pain as constant aching and burning in his lower back and pins and needles sensations in his right posterior thigh. Pain has been interfering with his daily activities and functioning, sleep, mood, social interactions and quality of life. Previously the patient has been managing his pain with meloxicam, Tylenol, ice and heat therapy, stretching, methocarbamol and short term tramadol. He reports methocarbamol has been helpful in the past. He completed physical therapy through [facility] in 2020 with no improvement in his symptoms. Patient reports he has tried a TENS unit on his elbow in the past and is interested in obtaining his personal unit. Denies chiropractic manipulation, acupuncture, massage or aqua therapy. No previous back surgery. Most recent lumbar spine MRI was done in 2017 at [place], [place] . We will send a request for the imaging report. Today?s lumbar spine imaging with oblique view was unremarkable. Patient reports lumbar ablation has been effective and he will consider diagnostic and therapeutic injections as well. [facility] Medical History Urinary dribbling Urinary urgency Foot pain Right hip pain Fatigue Muscle spasm of back Orchalgia Light headedness Physical exam Body aches Difficulty urinating Skin lesion Back pain Arthritis Sleep disorder Renal calculi Depression Lumbar facet arthropathy Low back pain Hyperlipidemia Obesity Anxiety Surgical History History of back surgery History of testicular surgery H/O elbow surgery History of vasectomy Family History Father No problems noted. Mother No problems noted. Housing: House Are you a primary respiratory care practitioner to a significant other at home: No Do you presently have visiting nurse or other home services: No Alcohol intake: never Patient Tobacco Use Status: Never used Tobacco e-Cigarette/Vaping Use: Never Used Second Hand Smoke Exposure: No service: Yes Current occupational status: employed Cognitive needs: No Hearing needs: No Vision needs: No Review of Systems Const All systems reviewed & are unremarkable except as noted in HPI and below Reports as per HPI, Denies body aches, Denies chills, Denies difficulty sleeping, Denies fatigue, Denies fever(s), Denies headache(s), Denies lethargy, Denies malaise and Denies weight loss ENT Denies headache(s) Card Denies dyspnea and Denies dyspnea on exertion Resp Denies cough, Denies pain with cough, Denies dyspnea and Denies dyspnea on exertion Neuro Denies headache(s) and Denies Sensory deficit (Neuro) Endo Denies fatigue Physical Exam Vital Signs: Last Vital Signs Pulse 92 01/26/23 13:54 BP 142/92 H 01/26/23 13:54 Pulse Ox 100 01/26/23 13:54 Oxygen Delivery Method Room Air 01/26/23 13:54 BMI result Body Mass Index 33.7 General: Appears afebrile. Alert and oriented. Mood and affect appropriate. Follows and participates in conversation appropriately. Respiratory effort is unlabored. No cough. Able to transition from sit to stand unassisted. Ambulates with bilaterally normal heel strike and toe off. Back/Spine/Pelvis Cervical Spine: cervical ROM normal and No Cervical spine tenderness Thoracic/Lumbar Spine: thoracic and lumbar spine normal to inspection, No Thoracic/lumbar spine scar(s), Lasegue's sign negative, straight leg raise negative bilaterally, pain with thoraco-lumbar ROM, paraspinal muscle tenderness, thoraco-lumbar ROM limited, No thoracic spinal tenderness and lumbar spinal tenderness (L4-S1) Pelvis: buttock tenderness Sacroiliac joints: bilaterally nontender Neuro Cranial nerves: Yes CN's II-XII intact bilaterally Cognition (Neuro): normal cognition Gait exam (Neuro): Normal gait present and No Assistive device used Motor exam (neuro): 5/5 motor strength present throughout, no tremor noted and Motor abnormalities not present Sensory Exam: No Sensory deficit (Neuro) Results Reviewed Results Reviewed: MR LUMBAR SPINE WITHOUT CONTRAST 12/31/22 CLINICAL INFORMATION: Radiculopathy COMPARISON: MRI of lumbar spine 11/20/2021 TECHNIQUE: MRI of the lumbar spine was obtained using routine sequences without contrast. FINDINGS: Redemonstration of transitional lumbosacral anatomy with hypertrophy left L5 transverse process articulating with the left sacrum. The L5-S1 disc space can be seen on image 38, series 5. Normal lumbar lordosis is preserved. No significant spondylolisthesis. Vertebral body heights are maintained. There is no suspicious osseous lesion. The intervertebral disc space heights are normal. Level by level detail as follows: L1-L2: No spinal canal or neural foraminal stenosis. L2-L3: No spinal canal or neural foraminal stenosis. L3-L4: Shallow annular disc bulge and [id number] bilateral facet arthrosis. No spinal canal or neural foraminal stenosis. L4-L5: Shallow annular disc bulge with moderate bilateral facet arthrosis. No spinal canal stenosis. Stable mild right without significant left neural foraminal encroachment. L5-S1: Mild to moderate bilateral facet arthrosis. No spinal canal or significant neural foraminal stenosis. The conus medullaris terminates at the level of inferior L1. The distal spinal cord is normal in appearance. . No epidural fluid collection, hematoma, or mass. No significant abnormalities of the paraspinal musculature. Simple appearing bilateral renal cyst requiring further imaging follow-up. The abdominal aorta is of normal contour and caliber. IMPRESSION: 1. 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 2. Mild lumbar spondylosis without significant spinal canal stenosis or high-grade neural foraminal stenosis. Stable mild right neural foraminal encroachment at L4-L5. Assessment & Plan Assessment & Plan (1) Lumbar spondylosis: Code(s): M47.816 - Spondylosis without myelopathy or radiculopathy, lumbar region (2) Lumbar facet arthropathy: Code(s): M47.816 - Spondylosis without myelopathy or radiculopathy, lumbar region (3) Lumbar radiculopathy: Code(s): M54.16 - Radiculopathy, lumbar region (4) Low back pain: Code(s): M54.50 - Low back pain, unspecified Plan Lumbar spine MRI results reviewed with patient today and noted above. Patient's symptoms consistent with facet-mediated components. He continues to have 50% pain relief s/p lumbar medial branch RFA on 10/16/22. Patient is considering peripheral nerve stimulation trial for next year when his back pain returns to baseline. At this time, he will trial diclofenac potassium and stop meloxicam. Side effects and precautions were discussed with patient. All questions and concerns have been answered and patient agreed with the plan. Follow up as needed. Medications: New diclofenac potassium Take it with food and full glass of water. Avoid other NSAIDs. 50 mg PO BID 30 days PRN 60 tabs 0RF pain M47.816 - Spondylosis without myelopathy or radiculopathy, lumbar region Discontinued meloxicam Discontinued Reason: Patient Completed Course 15 mg PO DAILY 90 tabs 8RF Coding Level of Care Code Est Pt Level 4 (78579) Diagnoses Lumbar spondylosis M47.816 Lumbar facet arthropathy M47.816 Lumbar radiculopathy M54.16 Low back pain M54.50
[2023-01-26 13:54] VITALS: BP 142/92; PULSE 92; O2SAT 100; BMI 33.7
== END 2023-01-26 14:12 | disposition home or self-care (01) ==
PROVIDERS: PCP Internal Medicine; Visit Provider Nurse Practitioner Family
DX: M47.816 Spondylosis without myelopathy or radiculopathy, lumbar region (principal); M54.16 Radiculopathy, lumbar region; M54.50 Low back pain, unspecified
CPT/HCPCS: 99214

== ENCOUNTER → 2023-01-26 13:48 | Outpatient (BNVA) | payer OTHER, SELFPAY | PROVIDERS: PCP Internal Medicine; Visit Provider Nurse Practitioner Family | DX: M47.26 Other spondylosis with radiculopathy, lumbar region (principal); M54.50 Low back pain, unspecified; Z91.85 Personal history of military service | CPT/HCPCS: 99212 ==

== ENCOUNTER 2023-01-30 11:25 | Outpatient (AMB) | payer OTHER, SELFPAY ==
[2023-01-30 11:26] VITALS: BP 140/90; PULSE 85; O2SAT 97; BMI 33.5
--- NOTE | 2023-01-30 11:26 | MHC.PC.OV ---
Vital Signs 01/30/23 11:26 Height 5 ft 9 in Weight 227 lb BMI 33.5 BP 140/90 H Blood Pressure Location Lt brachial Position Sitting Pulse 85 Pulse Source Pulse Oximeter Pulse Oximetry (%) 97 Oxygen Delivery Method Room Air Intake Visit Reasons: Headaches Naturopathic Doctor Required: No Methods Time Analyst: Not Required per policy Accompanied by: Self / Same As Patient Allergies No Known Allergies Allergy (Verified 01/30/23 11:27) Medication List - Last Reconciled 01/30/23 by Mateusz Wynne MD diclofenac potassium 50 mg PO BID PRN 30 days loratadine (Claritin) 10 mg PO DAILY methylprednisolone (Medrol (Vito)) PO PER PKG DIR sumatriptan succinate (Imitrex) take 1 tab at onset of headache; if no relief may repeat 1 tab after at least 2 hrs; max = 4 tabs/24 hr PO tizanidine 4 mg PO Q8H PRN tramadol 50 mg PO Q6H PRN Tobacco use date assessed: 10/22/22 Dental Screening Dental Screen Date: 01/30/23 Did you have a dental visit in the last 12 months?: Yes Did you have a dental problem in the last 6 months where you did not have access to dental care?: No Was dental information given to patient?: Patient has dentist HPI Headaches HPI Details Migraines with an aura PFSH Medical History Urinary dribbling Urinary urgency Foot pain Right hip pain Fatigue Muscle spasm of back Orchalgia Light headedness Physical exam Body aches Difficulty urinating Skin lesion Back pain Arthritis Sleep disorder Renal calculi Depression Lumbar facet arthropathy Low back pain Hyperlipidemia Obesity Anxiety Surgical History History of back surgery History of testicular surgery H/O elbow surgery History of vasectomy Family History Father No problems noted. Mother No problems noted. Social History Housing: House Are you a primary home health caregiver to a significant other at home: No Do you presently have visiting nurse or other home services: No Alcohol intake: never Patient Tobacco Use Status: Never used Tobacco e-Cigarette/Vaping Use: Never Used Second Hand Smoke Exposure: No service: Yes Current occupational status: employed Cognitive needs: No Hearing needs: No Vision needs: No Questionnaire Thrive Questionnaire Date Thrive assessed: 10/22/22 MAHIN-7 AMB Questionnaire MAHIN-7 Date MAHIN - 7 assessed: 10/22/22 Source: Developed by Drs. Raul Capps, Yissel Alonzo, Casey Roca and colleagues, with an educational alexy from [employer]. Review of Systems Const Denies chills and Denies weight loss Card Denies chest pain, Denies syncope, Denies irregular heart rhythm and Denies dyspnea Resp Denies chest congestion, Denies cough and Denies dyspnea GI Denies abdominal pain, Denies change in stool character, Denies nausea and Denies vomiting Musc Denies deformity and Denies joint swelling Neuro Denies syncope Physical exam (Primary Care) Vital Signs: Last Vital Signs Pulse 85 01/30/23 11:26 BP 140/90 H 01/30/23 11:26 Pulse Ox 97 01/30/23 11:26 Oxygen Delivery Method Room Air 01/30/23 11:26 BMI result Body Mass Index 33.5 Tobacco/Smoking Status: Tobacco use Status Tobacco use date assessed 10/22/22 01/30/23 11:27 Patient Tobacco Use Status Never used Tobacco 01/30/23 11:27 e-Cigarette/Vaping Use Never Used 01/30/23 11:27 Thrive Assessment: Date of Thrive Assessment Date Thrive assessed 10/22/22 01/30/23 11:27 Const General: cooperative, comfortable, no acute distress and alert Neck Neck: Yes no lymphadenopathy Thyroid: Thyroid normal Resp Effort & Inspection: normal respiratory effort Auscultation: clear to auscultation bilaterally Percussion: percussion normal Cardio Jugular venous distension: no JVD Palpation: normal PMI Rate: regular rate Rhythm: regular rhythm Heart sounds: S1 normal heart sound present and S2 normal heart sound present GI Inspection: Yes normal to inspection Palpation (GI): No hepatosplenomegaly present Skin General skin exam: no rashes or lesions noted Extrem General: Yes no clubbing, cyanosis or edema Assessment and Plan Assessment & Plan (1) Migraine headache: Code(s): G43.909 - Migraine, unspecified, not intractable, without status migrainosus Plan: rx sent Orders: Orders RT home sleep study Today R06.81 - Apnea, not elsewhere classified Medications: New sumatriptan succinate (Imitrex) take 1 tab at onset of headache; if no relief may repeat 1 tab after at least 2 hrs; max = 4 tabs/24 hr PO 20 tabs 2RF Refilled tramadol 50 mg PO Q6H PRN 8 tabs 0RF pain (scale score 1-3) Coding Level of Care Code Est Pt Level 3 (81182) Diagnoses Migraine headache G43.909
== END 2023-01-30 11:45 | disposition home or self-care (01) ==
PROVIDERS: PCP Internal Medicine; Visit Provider Internal Medicine
DX: G43.909 Migraine, unspecified, not intractable, without status migrainosus (principal)
CPT/HCPCS: 99213

== ENCOUNTER 2023-01-31 09:35 | Outpatient (REF) | payer OTHER, SELFPAY ==
[2023-02-04 19:14] LABS: Testosterone, Total 199 ng/dL (250-1100)
== END 2023-01-31 09:36 | disposition home or self-care (01) ==
LOC: HO.LAB 09:35
PROVIDERS: PCP Internal Medicine; Visit Provider Nurse Practitioner Family
DX: E29.1 Testicular hypofunction (principal)
CPT/HCPCS: 36415; 84402; 84403

== ENCOUNTER 2023-02-03 14:21 | Outpatient (AMB) | payer OTHER, SELFPAY ==
--- NOTE | 2023-02-03 14:27 | A.OFFVIS_ITS ---
Intake Intake Visit Reasons: 3m/labs Intake Note: Patient is present for follow up testicular pain/labs Urology Medications: none Blood Thinner: none Cutting Tool Sharpener Required: No Accompanied by: Self / Same As Patient Allergies No Known Allergies Allergy (Verified 02/03/23 21:05) Medication List - Last Reconciled 02/03/23 by ASHELY Mondragon diclofenac potassium 50 mg PO BID PRN 30 days loratadine (Claritin) 10 mg PO DAILY sumatriptan succinate (Imitrex) take 1 tab at onset of headache; if no relief may repeat 1 tab after at least 2 hrs; max = 4 tabs/24 hr PO tizanidine 4 mg PO Q8H PRN tramadol 50 mg PO Q6H PRN HPI HPI Comments History of Present Illness Details Kyle is a very pleasant 47 year old male patient of Dr. Elizondo. He presents to the office today for follow-up of his nephrolithiasis, intermittent/ongoing testicular pain, and urinary issues. He has a past medical history of hyperlipidemia, anxiety, obesity, lumbar radiculopathy, and sleep disorder. When asked patient reports to be doing and feeling well. Of note, patient was seen approximately 3 months ago at which time recommendations were made for Cialis 5 mg daily. However, patient discusses having experienced back pain approximately 3 days after starting medication at which time he stopped. He discusses having tried to restart medication however started experiencing back pain yet again. He has since stopped taking this medication. Previous workup has included a retroperitoneal ultrasound noting right kidney no renal calculi or hydronephrosis. 2.9 x 2.2 x 2.6 cm simple exophytic cyst in the upper pole. No follow-up imaging is recommended per radiology report. Left kidney with no lesions or hydroephrosis noted. 0.3 x 0.2 x 0.3 cm echogenic focus is seen in the mid kidney and likely represents a nonobstructing calculus. PSA 09/21--1.1. Testosterone levels 02/20--319 and 09/21--314. Patient reports having had labs drawn approximately 3 days ago however labs continue to be pending at this time. He reports significant improvement in baseline pain of bilateral testicles/scrotum since testicular denervation procedure with Dr. Gonzales however does continue with intermittent episodes bilateral testicular/scrotal pain at times. He does continue to report feeling fatigued and having some issues with his mood. Discussed at length importance of adequate sleep, healthy eating habits, weight loss, and daily exercise/brisk walking daily for further improvement in fatigue and mood as well as overall health and well-being Previous office note information: Bilateral testicular pain following vasectomy Underwent bilateral micro denervation 01/21 with good initial effect Will continue to trend testosterone levels. Nephrolithiasis Had been seen in [facility] emergency room. Still has persistent right flank pain. Imaging - 05/20 ultrasound with right hydro ureteral nephrosis but no stone seen. Presumed distal to imaging - 06/20 CAMILA right renal cyst 2cm - 01/20 renal ultrasound right renal cys t 2 cm no evidence of stones Therapeutic plan - increased fluid and watch salt PFSH Medical History Urinary dribbling Urinary urgency Foot pain Right hip pain Fatigue Muscle spasm of back Orchalgia Light headedness Physical exam Body aches Difficulty urinating Skin lesion Back pain Arthritis Sleep disorder Renal calculi Depression Lumbar facet arthropathy Low back pain Hyperlipidemia Obesity Anxiety Surgical History History of back surgery History of testicular surgery H/O elbow surgery History of vasectomy Family History Father No problems noted. Mother No problems noted. Social History Housing: House Are you a primary caretaker resort to a significant other at home: No Do you presently have visiting nurse or other home services: No Alcohol intake: never Patient Tobacco Use Status: Never used Tobacco e-Cigarette/Vaping Use: Never Used Second Hand Smoke Exposure: No service: Yes Current occupational status: employed Cognitive needs: No Hearing needs: No Vision needs: No Review of Systems Const All systems reviewed & are unremarkable except as noted in HPI and below Reports no additional complaints Eyes Reports no additional complaints ENT Reports no additional complaints Card Reports no additional complaints Resp Reports no additional complaints GI Reports no additional complaints Reports as per HPI Musc Reports no additional complaints Neuro Reports no additional complaints Psych Reports as per HPI Endo Reports no additional complaints Dick/Lymph Reports no additional complaints Aller/Immun Reports no additional complaints Physical Exam Const General: cooperative, healthy appearing, comfortable, no acute distress, well developed, alert and awake Orientation/consciousness: patient oriented x3 Limitations: no limitations HEENT Head: Yes normal to inspection, Yes normocephalic and Yes atraumatic Ears: hearing grossly normal bilaterally Eyes General: appearance normal, both eyes and all related structures Neck Neck: Yes normal visual inspection and Yes trachea midline Chest Chest palpation & inspection: normal inspection of the chest Resp Effort & Inspection: normal respiratory effort and able to speak in complete sentences Cardio Rate: regular rate GI Inspection: Yes normal to inspection General: Yes no CVA tenderness Back/Spine/Pelvis Back: no CVA tenderness Skin General skin exam: no rashes or lesions noted Neuro General: patient oriented x3 Extrem General: Yes normal to inspection Psych Appearance: grossly normal and well kempt Mental Status: mental status grossly normal Speech and movement: Normal speech and movement present and Clear speech present Affect: normal affect Attitude: cooperative Thought process: Normal thought process present Thought content: Normal thought content present Insight: Good insight present (Psych) Judgement: Good judgement present (Psych) Results AMB Urinalysis, Automated UA Leukoctes 0 Keisha/uL Last Edit by GIS Cloud on 02/03/23 14:55 UA Nitrite Negative Last Edit by GIS Cloud on 02/03/23 14:55 UA Urobilinogen 0.2 mg/dL Last Edit by GIS Cloud on 02/03/23 14:55 UA Protein 0 mg/dL Last Edit by GIS Cloud on 02/03/23 14:55 UA pH 6.0 Last Edit by GIS Cloud on 02/03/23 14:55 UA Blood 0 Kwasi/uL Last Edit by GIS Cloud on 02/03/23 14:55 UA Specific [place] 1.025 Last Edit by GIS Cloud on 02/03/23 14:55 UA Ketone Negative Last Edit by GIS Cloud on 02/03/23 14:55 UA Bilirubin 0 mg/dL Last Edit by GIS Cloud on 02/03/23 14:55 UA Glucose 0 mg/dL Last Edit by GIS Cloud on 02/03/23 14:55 Results Reviewed Results Reviewed: Laboratory Last Values Urine pH (Auto) 6.0 02/03/23 14:31 Specific [place] (Auto) 1.025 02/03/23 14:31 Urine Protein (Auto) 0 mg/dL 02/03/23 14:31 Glucose (UA)(Auto) 0 mg/dL 02/03/23 14:31 Urine Ketones (Auto) Negative 02/03/23 14:31 Urine Blood (Auto) 0 Kwasi/uL 02/03/23 14:31 Urine Nitrite (Auto) Negative 02/03/23 14:31 Urine Bilirubin (Auto) 0 mg/dL 02/03/23 14:31 Urine Urobilinogen (Auto) 0.2 mg/dL 02/03/23 14:31 Leukocyte Esterase (Auto) 0 Keisha/uL 02/03/23 14:31 Assessment & Plan Assessment & Plan (1) Fatigue: Code(s): R53.83 - Other fatigue (2) Orchalgia: Comment: Bilateral post vasectomy orchalgia Code(s): N50.819 - Testicular pain, unspecified Plan In office urinalysis results reviewed with the patient today; as noted above. Reassurance provided. Most recent testosterone lab values continue to be pending however previous testosterone lab values within normal limits. Discussed at length as well as stressed the importance of lifestyle modifications to assist with fatigue and mood. Discussed at length renal cyst Patient with ongoing intermittent bilateral testicular/scrotal pain however reports pain to be significantly improved since having bilateral denervation procedure with Dr. Gonzales. Continue to follow up with pain management as discussed. Will obtain testosterone levels in 6 months. Follow-up in 6 months with labs to be completed prior; or sooner with any issues, concerns, and or questions. Orders: Orders AMB Urinalysis Automated Today Z13.9 - Encounter for screening, unspecified Patient Instructions: The patient had an opportunity to ask questions regarding the treatment plan. All questions were answered. Physical exam, labs, and imaging were discussed and reviewed in detail. As well as risks, benefits, and discussion of treatment choices. No major barriers to understanding were identified. The patient expressed understanding and agreement with the above treatment plan. The patient was made aware they should contact our office by phone for worsening of their current condition, the appearance of new symptoms, or with any questions or concerns. Compliance is encouraged with any medications and follow up testing that is ordered. It is a privilege to be allowed the opportunity to participate in? your urological care.? Again, if you have any questions or concerns If you have any questions or concerns please do not hesitate to contact me. The office is [phone]. This note is constructed using voice recognition software. While every effort has been made to ensure accuracy radiology transcriptionist errors may have been included. Yours sincerely, ASHELY Mondragon Coding Level of Care Code Est Pt Level 3 (53114) Diagnoses Fatigue R53.83 Orchalgia N50.819
== END 2023-02-03 15:12 | disposition home or self-care (01) ==
PROVIDERS: PCP Internal Medicine; Visit Provider Nurse Practitioner Family
DX: R53.83 Other fatigue (principal); N50.819 Testicular pain, unspecified
CPT/HCPCS: 99213

== ENCOUNTER → 2023-02-03 14:21 | Outpatient (BNVA) | payer OTHER, SELFPAY | PROVIDERS: PCP Internal Medicine; Visit Provider Nurse Practitioner Family | DX: R53.83 Other fatigue (principal); N50.819 Testicular pain, unspecified | CPT/HCPCS: 81003; 99212 ==

== ENCOUNTER 2023-03-12 08:53 | Outpatient (AMB) | payer OTHER, SELFPAY ==
[2023-03-12 08:57] VITALS: BP 116/78; PULSE 76; O2SAT 97; BMI 34.0
--- NOTE | 2023-03-12 08:57 | A.OFFPC_ITS ---
Vital Signs 03/12/23 08:57 Height 5 ft 9 in Weight 230 lb 2 oz BMI 34.0 BP 116/78 Blood Pressure Location Lt brachial Position Sitting Pulse 76 Pulse Source Pulse Oximeter Pulse Oximetry (%) 97 Oxygen Delivery Method Room Air Intake Visit Reasons: Annual Exam Named Account Executive Required: No Rubber Turner: Not Required per policy Accompanied by: Self / Same As Patient Allergies No Known Allergies Allergy (Verified 03/12/23 08:58) Medication List - Last Reconciled 03/12/23 by Mateusz Wynne MD diclofenac potassium 50 mg PO BID PRN 30 days loratadine (Claritin) 10 mg PO DAILY sumatriptan succinate (Imitrex) take 1 tab at onset of headache; if no relief may repeat 1 tab after at least 2 hrs; max = 4 tabs/24 hr PO tizanidine 4 mg PO Q8H PRN tramadol 50 mg PO Q6H PRN Tobacco use date assessed: 03/12/23 Dental Screening Dental Screen Date: 03/12/23 Did you have a dental visit in the last 12 months?: Yes Did you have a dental problem in the last 6 months where you did not have access to dental care?: No Was dental information given to patient?: Patient has dentist HPI Annual Exam HPI Details chronic migraines and back pain [facility] Medical History (Updated 03/12/23 @ 09:33 by Mateusz Wynne MD) Physical exam Urinary dribbling Urinary urgency Foot pain Right hip pain Fatigue Muscle spasm of back Orchalgia Light headedness Body aches Difficulty urinating Skin lesion Back pain Arthritis Sleep disorder Renal calculi Depression Lumbar facet arthropathy Low back pain Hyperlipidemia Obesity Anxiety Surgical History History of back surgery History of testicular surgery H/O elbow surgery History of vasectomy Family History Father No problems noted. Mother No problems noted. Social History Housing: House Are you a primary director career services to a significant other at home: No Do you presently have visiting nurse or other home services: No Alcohol intake: never Patient Tobacco Use Status: Never used Tobacco e-Cigarette/Vaping Use: Never Used Second Hand Smoke Exposure: No service: Yes Current occupational status: employed Cognitive needs: No Hearing needs: No Vision needs: No Questionnaire PHQ-9 Over the last 2 weeks, how often have you been bothered by any of the following problems? 1. Little interest or pleasure in doing things: not at all 2. Feeling down, depressed, or hopeless: not at all 3. Trouble falling or staying asleep, or sleeping too much: not at all 4. Feeling tired or having little energy: not at all 5. Poor appetite or overeating: not at all 6. Feeling bad about yourself - or that you are a failure or have let yourself or your family down: not at all 7. Trouble concentrating on things, such as reading the newspaper or watching television: not at all 8. Moving or speaking so slowly that other people could have noticed. Or the opposite - being so fidgety or restless that you have been moving around a lot more than usual: not at all 9. Thoughts that you would be better off or of hurting yourself in some way: not at all Total score: 0 Depression Screening Interpretation: Negative Depression Screening Done: Yes 90094 - PHQ-9 Billing: Yes Source: Developed by Drs. Raul Capps, Yissel Alonzo, Casey Roca and colleagues, with an educational alexy from [employer]. Thrive Questionnaire Date Thrive assessed: 03/12/23 I am a: Patient What is your living situation today?: I have a steady place to live Within the past 12 months, did the food you bought not last and you didn't have the money to get more?: Never true Within the past 12 months, did you worry whether your food would run out before you got money to buy more?: Never true Do you have trouble paying for medicines?: No Do you have trouble getting transportation to medical appointments?: No Do you have trouble paying your heating and electricity bill?: No Do you have trouble taking care of your child, family member or friend?: No Do you have trouble with day-to-day activities such as bathing, preparing meals, shopping, managing finances, etc.?: No Are you currently unemployed and looking for a job?: No Are you interested in more education?: No Please select the resources that you would like help with: None MAHIN-7 AMB Questionnaire MAHIN-7 Date MAHIN - 7 assessed: 03/12/23 Feeling nervous, anxious, or on edge: 1 = Several days Not being able to stop or control worryin = Several days Worrying too much about different things: 0 = Not at all Trouble relaxin = Not at all Being so restless that it is hard to sit still: 0 = Not at all Becoming easily annoyed or irritable: 0 = Not at all Feeling afraid as if something awful might happen: 0 = Not at all Total MAHIN-7 score (0-4 normal; 5-9 mild; 10-14 moderate; 15-21 severe): 2 Source: Developed by Drs. Raul Capps, Yissel Alonzo, Casey Roca and colleagues, with an educational alexy from [employer]. MAHIN-7 Assessment Billing MAHIN-7 Assessment Tool: MAHIN-7 Assessment 84209 Review of Systems Const Denies chills, Denies fatigue, Denies headache(s) and Denies weight loss Eyes Denies change in vision, Denies diplopia and Denies eye pain ENT Denies vertigo, Denies dizziness, Denies headache(s) and Denies nasal discharge Card Denies chest pain, Denies rapid heart rate and Denies dyspnea on exertion Resp Denies chest congestion, Denies cough, Denies pain with cough and Denies dyspnea on exertion GI Denies abdominal pain, Denies hematochezia and Denies change in bowel habits Musc Denies myalgias, Denies arthralgias and Denies joint swelling Skin/Breast Denies lesions and Denies unusual bruising Neuro Denies vertigo, Denies dizziness, Denies headache(s) and Denies focal weakness Endo Denies fatigue Physical exam (Primary Care) Vital Signs: Last Vital Signs Pulse 76 03/12/23 08:57 BP 116/78 03/12/23 08:57 Pulse Ox 97 03/12/23 08:57 Oxygen Delivery Method Room Air 03/12/23 08:57 BMI result Body Mass Index 34.0 Tobacco/Smoking Status: Tobacco use Status Tobacco use date assessed 03/12/23 03/12/23 09:02 Patient Tobacco Use Status Never used Tobacco 03/12/23 09:02 e-Cigarette/Vaping Use Never Used 03/12/23 09:02 PHQ-9: PHQ-9 Score PHQ-9: Total score 0 03/12/23 09:02 Depression Screening Interpretation: Negative Thrive Assessment: Date of Thrive Assessment Date Thrive assessed 03/12/23 03/12/23 09:02 Const General: cooperative, healthy appearing and no acute distress Orientation/consciousness: oriented to person, oriented to place and oriented to time HENMT Head: Yes normal to inspection, Yes normocephalic and Yes atraumatic Mouth: Normal oral and palatal mucosa present and tongue normal Throat: Yes posterior oropharynx normal and Yes uvula midline Eyes General: appearance normal, both eyes and all related structures Neck Neck: Yes normal visual inspection, Yes full ROM and Yes no lymphadenopathy Thyroid: Thyroid normal Carotids: normal carotid upstroke Chest Chest palpation & inspection: normal inspection of the chest Resp Effort & Inspection: normal respiratory effort and able to speak in complete sentences Auscultation: clear to auscultation bilaterally Cardio Jugular venous distension: no JVD Palpation: normal PMI Rate: regular rate Rhythm: regular rhythm Heart sounds: S1 normal heart sound present and S2 normal heart sound present GI Inspection: Yes normal to inspection Palpation (GI): Soft to palpation and No hepatosplenomegaly present Auscultation: normal bowel sounds General: Yes no CVA tenderness Back/Spine/Pelvis Back: no CVA tenderness Skin General skin exam: no rashes or lesions noted Neuro General: oriented to person, oriented to place and oriented to time Extrem General: Yes normal to inspection and Yes full ROM Assessment and Plan Assessment & Plan (1) Migraine headache: Code(s): G43.909 - Migraine, unspecified, not intractable, without status migrainosus Plan: stable; same rx (2) Low back pain: Code(s): M54.50 - Low back pain, unspecified Plan: stable same rx (3) Physical exam: Code(s): Z00.00 - Encounter for general adult medical examination without abnormal findings Plan: labs Orders: Orders Lipid Panel Today E78.5 - Hyperlipidemia, unspecified Thyroid Stimulating Hormone Today E03.9 - Hypothyroidism, unspecified Complete Blood Count Auto Diff Today D64.9 - Anemia, unspecified XR cervical spine 2V Today M54.2 - Cervicalgia Comprehensive [place]. Panel Fast Today N28.9 - Disorder of kidney and ureter, unspecified Medications: Refilled tramadol 50 mg PO Q6H PRN 8 tabs 0RF pain (scale score 1-3) tizanidine 4 mg PO Q8H PRN 90 tabs 0RF for muscle spasm M54.50 - Low back pain, unspecified, M62.830 - Muscle spasm of back Coding Level of Care Code Est Pt Prev Care 40-64y(26325) Diagnoses Migraine headache G43.909 Low back pain M54.50 Physical exam Z00.00 Additional Codes MAHIN-7 Assessment Billing - MAHIN-7 Assessment Tool: MAHIN-7 Assessment [id number] ([id number])
== END 2023-03-12 09:27 | disposition home or self-care (01) ==
PROVIDERS: PCP Internal Medicine; Visit Provider Internal Medicine
DX: G43.909 Migraine, unspecified, not intractable, without status migrainosus (principal); M54.50 Low back pain, unspecified; Z00.00 Encounter for general adult medical examination without abnormal findings
CPT/HCPCS: 99396

== ENCOUNTER → 2023-03-17 08:12 | Outpatient (REF) | payer OTHER, SELFPAY | LOC: HO.SL 08:12 | PROVIDERS: PCP Internal Medicine; Visit Provider Internal Medicine | DX: R06.81 Apnea, not elsewhere classified (principal); R06.83 Snoring | CPT/HCPCS: 95806 ==

== ENCOUNTER → 2023-03-17 08:20 | Outpatient (BNV) | payer OTHER, SELFPAY | PROVIDERS: PCP Internal Medicine; Visit Provider Internal Medicine | DX: R06.83 Snoring (principal) | CPT/HCPCS: 95806 ==

== ENCOUNTER 2023-03-24 07:46 | Outpatient (REF) | payer OTHER, SELFPAY ==
--- NOTE | ~2023-03-24 | XR_ITS ---
EXAMINATION: XR CERVICAL SPINE, BILATERAL FEET CLINICAL INFORMATION: Neck pain, left foot pain, pain in unspecified foot. COMPARISON: None TECHNIQUE: 5 views of the cervical spine. 3 views of each foot. FINDINGS: CERVICAL SPINE: Straightening of the normal cervical lordosis. C7 obscured by overlying soft tissues, limiting evaluation. Mild cervical spondylosis. Cervical disc space heights are preserved. RIGHT FOOT: Prominent dorsal calcaneal spur. Tiny plantar calcaneal spur. Mild degenerative changes in the first metatarsophalangeal joint with joint space narrowing and hypertrophic change. Moderate degenerative changes with hypertrophic change at the first tarsometatarsal joint. LEFT FOOT: Prominent dorsal calcaneal spur. Mild degenerative changes in first metatarsophalangeal joint with hypertrophic change. Moderate degenerative changes with hypertrophic changes in the first tarsometatarsal joint. XR/XR foot LT 2V IMPRESSION: 1. Mild cervical spondylosis. 2. Prominent dorsal calcaneal spurs. 3. Moderate degenerative changes in bilateral first tarsometatarsal joints. 4. Mild degenerative changes in bilateral first metatarsophalangeal joints.
--- NOTE | ~2023-03-24 | XR_ITS ---
EXAMINATION: XR CERVICAL SPINE, BILATERAL FEET CLINICAL INFORMATION: Neck pain, left foot pain, pain in unspecified foot. COMPARISON: None TECHNIQUE: 5 views of the cervical spine. 3 views of each foot. FINDINGS: CERVICAL SPINE: Straightening of the normal cervical lordosis. C7 obscured by overlying soft tissues, limiting evaluation. Mild cervical spondylosis. Cervical disc space heights are preserved. RIGHT FOOT: Prominent dorsal calcaneal spur. Tiny plantar calcaneal spur. Mild degenerative changes in the first metatarsophalangeal joint with joint space narrowing and hypertrophic change. Moderate degenerative changes with hypertrophic change at the first tarsometatarsal joint. LEFT FOOT: Prominent dorsal calcaneal spur. Mild degenerative changes in first metatarsophalangeal joint with hypertrophic change. Moderate degenerative changes with hypertrophic changes in the first tarsometatarsal joint. XR/XR foot RT 2V IMPRESSION: 1. Mild cervical spondylosis. 2. Prominent dorsal calcaneal spurs. 3. Moderate degenerative changes in bilateral first tarsometatarsal joints. 4. Mild degenerative changes in bilateral first metatarsophalangeal joints.
--- NOTE | ~2023-03-24 | XR_ITS ---
EXAMINATION: XR CERVICAL SPINE, BILATERAL FEET CLINICAL INFORMATION: Neck pain, left foot pain, pain in unspecified foot. COMPARISON: None TECHNIQUE: 5 views of the cervical spine. 3 views of each foot. FINDINGS: CERVICAL SPINE: Straightening of the normal cervical lordosis. C7 obscured by overlying soft tissues, limiting evaluation. Mild cervical spondylosis. Cervical disc space heights are preserved. RIGHT FOOT: Prominent dorsal calcaneal spur. Tiny plantar calcaneal spur. Mild degenerative changes in the first metatarsophalangeal joint with joint space narrowing and hypertrophic change. Moderate degenerative changes with hypertrophic change at the first tarsometatarsal joint. LEFT FOOT: Prominent dorsal calcaneal spur. Mild degenerative changes in first metatarsophalangeal joint with hypertrophic change. Moderate degenerative changes with hypertrophic changes in the first tarsometatarsal joint. XR/XR cervical spine 2V IMPRESSION: 1. Mild cervical spondylosis. 2. Prominent dorsal calcaneal spurs. 3. Moderate degenerative changes in bilateral first tarsometatarsal joints. 4. Mild degenerative changes in bilateral first metatarsophalangeal joints.
[2023-03-24 08:47] LABS: MANUAL DIFF FLAG NO
[2023-03-24 08:53] LABS: Basophils Percent Auto 0.3 % (0-2); Eosinophils Absolute Auto 0.1 X10*3/uL (0.0-0.4); Eosinophils Percent Auto 1.4 % (0-4); Hematocrit 43.5 % (42.0-52.0); Hemoglobin 14.8 g/dl (14.0-18.0); Imm Gran Abs Auto 0.02 X10*3/uL (0.00-0.03); Imm Gran Pct Auto 0.3 % (0.0-0.4); Lymphocytes Absolute Auto 3.1 X10*3/uL (1.2-4.9); Lymphocytes Percent Auto 42.1 % (20-40); Mean Corpuscular Hemoglobin 30.7 pg (27.0-33.0); Mean Corpuscular Volume 90.2 fL (80.0-98.0); Mean Platelet Volume 9.8 fL (9.4-12.4); Monocytes Absolute Auto 0.5 X10*3/uL (0.1-1.2); Monocytes Percent Auto 6.7 % (2-11); Neutrophils Absolute Auto 3.6 x10*3/uL (2.0-8.3); Neutrophils Percent Auto 49.2 % (45-73); Platelet Count 209 X10*3/uL (160-400); Red Blood Count 4.82 X10*6/uL (4.60-5.80); Red Cell Distribution Width 12.6 % (11.0-16.0); White Blood Count 7.3 X10*3/uL (4.8-10.8)
[2023-03-24 09:45] LABS: Alanine Aminotransferase 55 U/L (0-40); Albumin Level 4.6 g/dL (3.5-5.0); Alkaline Phosphatase 71 U/L (39-117); Anion Gap 11 (12-20); Aspartate Amino Transferase 29 U/L (5-37); Bilirubin Total 0.2 mg/dL (0.0-1.0); Blood Urea Nitrogen 16 mg/dL (9-16); Calcium 9.7 mg/dL (8.4-10.2); Carbon Dioxide 26 mmol/L (22-29); Chloride 109 mmol/L (96-108); Cholesterol 270 mg/dL (<200); Estimated Glomerular Filt Rate > 60; Glucose Fasting 99 mg/dL (60-99); HDL Cholesterol 44 mg/dL (>40); LDL Cholesterol Calculated 196 mg/dL (<100); Potassium 4.5 mmol/L (3.3-5.1); Sodium 141 mmol/L (135-145); Total Protein 7.7 g/dL (6.5-8.0); Triglycerides 150 mg/dL (<150)
== END 2023-03-24 07:47 | disposition home or self-care (01) ==
LOC: HO.LAB 07:46
PROVIDERS: PCP Internal Medicine; Visit Provider Internal Medicine
DX: D64.9 Anemia, unspecified (principal); M79.672 Pain in left foot; M79.671 Pain in right foot; M54.2 Cervicalgia; N28.9 Disorder of kidney and ureter, unspecified; E78.5 Hyperlipidemia, unspecified; E03.9 Hypothyroidism, unspecified
CPT/HCPCS: 36415; 72040; 73620; 80053; 80061; 84443; 85025

== ENCOUNTER 2023-04-06 12:33 | Day surgery (SDC) | payer OTHER, SELFPAY ==
[2023-04-02 15:43] VITALS: BMI 34.4
--- NOTE | 2023-04-03 09:04 | HO.ANESPROP2 ---
HPI - Anesthesia Eval Consult details Narrative: 47yo M for Upper Endoscopy with Balloon Dilitation, Colonoscopy s/p medial branch block 09/2022 with [facility] Active Problems Active Problems: All Active Problems (Updated 03/12/23 @ 09:33 by Mateusz Wynne MD) Physical exam (Acute) Hypogonadism in male (Acute) Migraine headache (Acute) COVID-19 (Acute) ADHD (Acute) Osteoarthritis cervical spine (Acute) Nephrolithiasis (Acute) Sleep disorder (Acute) Spermatocele (Acute) Depression (Acute) Lumbar spondylosis (Acute) Cervical spondylosis (Acute) Lumbar radiculopathy (Acute) Low back pain (Acute) Lumbar facet arthropathy (Acute) Hyperlipidemia (Acute) Obesity (Acute) Anxiety (Acute) Past Medical History Medical History Physical exam Urinary dribbling Urinary urgency Foot pain Right hip pain Fatigue Muscle spasm of back Orchalgia Light headedness Body aches Difficulty urinating Skin lesion Back pain Arthritis Sleep disorder Renal calculi Depression Lumbar facet arthropathy Low back pain Hyperlipidemia Obesity Anxiety Family History Family History Father No problems noted. Mother No problems noted. Family history of problems with anesthesia: No Surgical History Surgical History History of back surgery History of testicular surgery H/O elbow surgery History of vasectomy History of Problems with Anesthesia: No Social History Social History Housing: House Are you a primary technical healthcare consultant to a significant other at home: No Do you presently have visiting nurse or other home services: No Alcohol intake: never Patient Tobacco Use Status: Never used Tobacco e-Cigarette/Vaping Use: Never Used Second Hand Smoke Exposure: No service: Yes Current occupational status: employed Cognitive needs: No Hearing needs: No Vision needs: No Meds Allergies Allergy/AdvReac Type Severity Reaction Status Date / Time No Known Allergies Allergy Verified 04/09/23 09:03 Home Medications Medication Instructions Recorded Confirmed Last Taken Type loratadine 10 mg tablet (Claritin) 10 mg PO DAILY 08/12/22 02/08/24 11/07/22 History Exam Height,Weight and Vital Signs: Height 5 ft 9 in Weight 105.687 kg Pertinent Lab Results Pertinent Lab Results: Laboratory Tests 03/24/23 08:45 WBC 7.3 Hgb 14.8 Hct 43.5 Plt Count 209 Sodium 141 Potassium 4.5 Chloride 109 H Carbon Dioxide 26 BUN 16 Creatinine 0.91 Assessment and Plan Assessment Anesthesia Assessment: Chart Reviewed Final Anesthetic Review Family History of Problems with Anesthesia: No History of Problems with Anesthesia: No
--- NOTE | 2023-04-06 12:09 | HO.ANESPROP2 ---
[facility] Active Problems Active Problems: All Active Problems (Updated 03/12/23 @ 09:33 by Mateusz Wynne MD) Physical exam (Acute) Hypogonadism in male (Acute) Migraine headache (Acute) COVID-19 (Acute) ADHD (Acute) Osteoarthritis cervical spine (Acute) Nephrolithiasis (Acute) Sleep disorder (Acute) Spermatocele (Acute) Depression (Acute) Lumbar spondylosis (Acute) Cervical spondylosis (Acute) Lumbar radiculopathy (Acute) Low back pain (Acute) Lumbar facet arthropathy (Acute) Hyperlipidemia (Acute) Obesity (Acute) Anxiety (Acute) Past Medical History Medical History Physical exam Urinary dribbling Urinary urgency Foot pain Right hip pain Fatigue Muscle spasm of back Orchalgia Light headedness Body aches Difficulty urinating Skin lesion Back pain Arthritis Sleep disorder Renal calculi Depression Lumbar facet arthropathy Low back pain Hyperlipidemia Obesity Anxiety Family History Family History Father No problems noted. Mother No problems noted. Family history of problems with anesthesia: No Surgical History Surgical History History of back surgery History of testicular surgery H/O elbow surgery History of vasectomy History of Problems with Anesthesia: No Social History Social History Housing: House Are you a primary health care liaison to a significant other at home: No Do you presently have visiting nurse or other home services: No Alcohol intake: never Patient Tobacco Use Status: Never used Tobacco e-Cigarette/Vaping Use: Never Used Second Hand Smoke Exposure: No service: Yes Current occupational status: employed Cognitive needs: No Hearing needs: No Vision needs: No Meds Allergies Allergy/AdvReac Type Severity Reaction Status Date / Time No Known Allergies Allergy Verified 03/12/23 08:58 Home Medications Medication Instructions Recorded Confirmed Last Taken Type loratadine 10 mg tablet (Claritin) 10 mg PO DAILY 10/11/21 03/12/23 01/06/22 History Exam Height,Weight and Vital Signs: Height 5 ft 9 in Weight 105.687 kg Assessment and Plan Final Anesthetic Review Family History of Problems with Anesthesia: No History of Problems with Anesthesia: No
[2023-04-06 12:45] VITALS: BMI 34.4
[2023-04-06 12:59] VITALS: BP 132/95; PULSE 87; RESP 16; TEMP 36.3; O2SAT 98
[2023-04-06] MEDS: Lactated Ringers 1,000 ML 100 ML IVCONT (13:08)
--- NOTE | 2023-04-06 13:11 | HO.ANESPROP2 ---
[facility] Active Problems Active Problems: All Active Problems (Updated 03/12/23 @ 09:33 by Mateusz Wynne MD) Physical exam (Acute) Hypogonadism in male (Acute) Migraine headache (Acute) COVID-19 (Acute) ADHD (Acute) Osteoarthritis cervical spine (Acute) Nephrolithiasis (Acute) Sleep disorder (Acute) Spermatocele (Acute) Depression (Acute) Lumbar spondylosis (Acute) Cervical spondylosis (Acute) Lumbar radiculopathy (Acute) Low back pain (Acute) Lumbar facet arthropathy (Acute) Hyperlipidemia (Acute) Obesity (Acute) Anxiety (Acute) Past Medical History Medical History Physical exam Urinary dribbling Urinary urgency Foot pain Right hip pain Fatigue Muscle spasm of back Orchalgia Light headedness Body aches Difficulty urinating Skin lesion Back pain Arthritis Sleep disorder Renal calculi Depression Lumbar facet arthropathy Low back pain Hyperlipidemia Obesity Anxiety Family History Family History Father No problems noted. Mother No problems noted. Family history of problems with anesthesia: No Surgical History Surgical History History of back surgery History of testicular surgery H/O elbow surgery History of vasectomy History of Problems with Anesthesia: No Social History Social History Housing: House Are you a primary healthcare social worker to a significant other at home: No Do you presently have visiting nurse or other home services: No Alcohol intake: never Patient Tobacco Use Status: Never used Tobacco e-Cigarette/Vaping Use: Never Used Second Hand Smoke Exposure: No Use of substances other than those prescribed or required for medical reasons: No Are you DNR?: No Advance Directives: No Advance Directives Information Provided: Yes service: Yes Current occupational status: employed Cognitive needs: No Hearing needs: No Vision needs: No Meds Allergies Allergy/AdvReac Type Severity Reaction Status Date / Time No Known Allergies Allergy Verified 03/12/23 08:58 Active Medications: Current Medications Lactated Ringer's (Lr) 1,000 mls @ 100 mls/hr IVCONT .Q10H JOSÉ MANUEL Last Admin: 04/06/23 13:08 Dose: 100 mls/hr Sodium Biphosphate/Sodium Phosphate (Sodium Phosphate,[place]outeau-Dibasic 133 Ml Enema) 133 ml AR ONCE PRN PRN Reason: Poor Colonoscopy Prep Results Home Medications Medication Instructions Recorded Confirmed Last Taken Type loratadine 10 mg tablet (Claritin) 10 mg PO DAILY 10/11/21 03/12/23 01/06/22 History Exam Height,Weight and Vital Signs: Height 5 ft 9 in Weight 105.744 kg Last Vital Signs Temp 97.3 F 04/06/23 12:59 Pulse 87 04/06/23 12:59 Resp 16 04/06/23 12:59 BP 132/95 H 04/06/23 12:59 Pulse Ox 98 04/06/23 12:59 O2 Del Method Room Air 04/06/23 12:59 Airway Mallampati Class: III TM Dist: >3cm Neck ROM: Full Heart: RRR Lungs: CTA Assessment and Plan Assessment Anesthesia Assessment: Anesthesia Plan Discussed Final Anesthetic Review Family History of Problems with Anesthesia: No History of Problems with Anesthesia: No ASA Class: III Final Preanesthetic Review: Meds/Allgs Chart Reviewed, Consent Obtained/Reviewed and Anes Risks/Benef Reviewed Patient Risk: Low Procedure Risk: Low Anesthetic Plan Anesthetic Plan: MAC: Disposition: Standard PACU
[2023-04-06 15:05] VITALS: BP 102/64; PULSE 80; RESP 16; TEMP 36.1; O2SAT 95
--- NOTE | 2023-04-06 15:11 | PM.OP ---
Brief Operative Note Date of Service: 04/06/23 Pre-op diagnosis: GERD, Screening Post-op diagnosis: other (GERD, Hiatal hernia, Internal hemorrhoids) Procedure: EGD with biopsies and Balloon Dilation, Colonoscopy to the cecum and TI Surgeon: Raul Schultz MD Anesthesia: MAC Was an Direct Care Staffer used for this Procedure?: No Estimated blood loss (mL): 2.0 Pathology: other (A. Descending duodenum B. EG Junction at 39cm C. Esophagus 20-25cm) Condition: stable Disposition: PACU
[2023-04-06 15:20] VITALS: BP 125/88; PULSE 71; RESP 16; O2SAT 98
[2023-04-06 15:33] VITALS: BP 123/86; PULSE 73; RESP 16; TEMP 36.1; O2SAT 100
--- NOTE | 2023-04-06 17:24 | OP_ITS ---
DATE OF SERVICE: 04/06/2023 SURGEON: Raul Schultz MD INDICATIONS: The patient presents for evaluation of intermittent dysphagia, reflux, family history of celiac disease, intermittent diarrhea, and need for colorectal cancer screening. Full consent was obtained from him for this, including risks of bleeding and perforation. PREOPERATIVE DIAGNOSIS: POSTOPERATIVE DIAGNOSIS: PROCEDURE PERFORMED: Esophagogastroduodenoscopy with balloon dilation of gastroesophageal junction and biopsies, and colonoscopy to the cecum and terminal ileum. ESTIMATED BLOOD LOSS: COMPLICATIONS: ANESTHESIA: Medication used: Monitored anesthesia care. ASSISTANTS: SPECIMENS: PREOPERATIVE DIAGNOSES: Gastroesophageal reflux, dysphagia, diarrhea, family history of celiac disease, and colorectal cancer screening. POSTOPERATIVE DIAGNOSES: Gastroesophageal reflux, dysphagia, diarrhea, family history of celiac disease, colorectal cancer screening, small hiatal hernia, rule out celiac disease, rule out eosinophilic esophagitis, internal hemorrhoids. DESCRIPTION OF PROCEDURE: The patient was placed in the left lateral decubitus position. The digital rectal exam revealed no abnormalities. The Olympus video pediatric colonoscope was then entered into the rectum and advanced easily to the cecum. Once in the cecum, I did identify normal-appearing cecal pouch with appendiceal orifice and a normal-appearing ileocecal valve. The terminal ileum was cannulated and appeared normal. The scope was withdrawn back in the colon. The entire cecum appeared normal. The scope was slowly withdrawn, assessing all mucosal surfaces carefully. Preparation was excellent. I did not visualize any sign of polyps, colitis, or angiodysplasia. In the rectum, scope was retroflexed visualizing small internal hemorrhoids, but no other pathology. The rectal mucosa appeared normal. The scope was straightened out and withdrawn from the patient. He was turned around for the upper endoscopy. The Olympus video gastroscope was passed in the posterior oropharynx and upper esophagus under direct vision. The scope was passed slowly into the distal esophagus. The gastroesophageal junction appeared at 39 cm. There was some edema and erythema, but no erosions, ulceration, stricture, nor ring. There was no definitive Ferguson mucosa. The scope was advanced easily into the stomach. The scope was advanced to pylorus and the duodenum was cannulated to the descending portion. The duodenum including the bulb appeared normal without mass or ulceration. Biopsies were obtained from the 2nd and 3rd portions of the duodenum. The scope was withdrawn back in the stomach. The gastric antrum and body appeared normal with good peristalsis. The scope was retroflexed visualizing the proximal stomach carefully, which appeared normal, without any sign of mass or ulceration. The scope was straightened out and withdrawn back to the esophagus. Given the symptomatology, I did use a [employer] incremental balloon to dilate the gastroesophageal junction from 18 mm to 19 mm at the recommended pressure for between 30 and 60 seconds each. Post dilation, there was no appreciable heme noted. I then obtained biopsies at the EG junction at 39 cm. The scope was then withdrawn through the remainder of the esophagus, which appeared normal. There was no evidence of any proximal esophageal rings nor webs. Biopsies were obtained between 20 and 25 cm. The scope was withdrawn from the patient. He tolerated both procedures well and was returned to recovery area in stable condition. IMPRESSION: 1. Rule out eosinophilic esophagitis. 2. Small hiatal hernia. 3. Rule out celiac disease. 4. Internal hemorrhoids. PLAN: The results of the biopsies will be checked. I would recommend that he use Prilosec or omeprazole more regularly to see if that gives him better relief of his intermittent dysphagia as I do suspect this may be due to some reflux and esophageal spasm. He will plan to see me in the office later this year, but if his symptoms of dysphagia persist, we may want to proceed with an esophageal motility. He did have a recent barium swallow as ordered by Dr. Bowles and I will need to obtain a copy of that. I would recommend a repeat colonoscopy in 10 years as well. He was advised not to use any aspirin and NSAIDs for 1 week. MD ROBERT Kay/DIONNA / [phone]
== END 2023-04-06 15:35 | disposition home or self-care (01) ==
PROVIDERS: PCP Internal Medicine; Visit Provider Internal Medicine
PROC: (CPT 45378; principal; 2023-04-06 13:30)
PROC: 0DJD8ZZ Inspection of Lower Intestinal Tract, Via Natural or Artificial Opening Endoscopic (ICD-10-PCS; CPT 45378; 2023-04-06 13:30)
DX: Z12.11 Encounter for screening for malignant neoplasm of colon (principal); K21.9 Gastro-esophageal reflux disease without esophagitis; R13.14 Dysphagia, pharyngoesophageal phase; K64.8 Other hemorrhoids; K44.9 Diaphragmatic hernia without obstruction or gangrene; Z79.899 Other long term (current) drug therapy
CPT/HCPCS: 45378; 43249; 43239; 88305; 88313; C1726; J1596; J2704

== ENCOUNTER 2023-04-09 09:01 | Outpatient (AMB) | payer OTHER, SELFPAY ==
[2023-04-09 09:02] VITALS: BP 126/82; PULSE 90; O2SAT 97; BMI 34.0
--- NOTE | 2023-04-09 09:02 | A.OFFPC_ITS ---
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 Accompanied by: Self / Same As Patient Allergies No Known Allergies Allergy (Verified 04/09/23 09:03) Medication List - Last Reconciled 04/09/23 by Mateusz Wynne MD diclofenac potassium 50 mg PO BID PRN loratadine (Claritin) 10 mg PO DAILY sumatriptan succinate (Imitrex) take 1 tab at onset of headache; if no relief may repeat 1 tab after at least 2 hrs; max = 4 tabs/24 hr PO tizanidine 4 mg PO Q8H PRN tramadol 50 mg PO Q6H PRN Tobacco use date assessed: 04/09/23 Dental Screening Dental Screen Date: 04/09/23 Did you have a dental visit in the last 12 months?: Yes Did you have a dental problem in the last 6 months where you did not have access to dental care?: No Was dental information given to patient?: Patient has dentist HPI lab review HPI Details neck pain and bilat arm numbness; c-spine xr showed strightening lordosis and DJD; bilat knee pain PFSH Medical History Physical exam Urinary dribbling Urinary urgency Foot pain Right hip pain Fatigue Muscle spasm of back Orchalgia Light headedness Body aches Difficulty urinating Skin lesion Back pain Arthritis Sleep disorder Renal calculi Depression Lumbar facet arthropathy Low back pain Hyperlipidemia Obesity Anxiety Surgical History History of back surgery History of testicular surgery H/O elbow surgery History of vasectomy Family History Father No problems noted. Mother No problems noted. Social History Housing: House Are you a primary child care provider to a significant other at home: No Do you presently have visiting nurse or other home services: No Alcohol intake: never Patient Tobacco Use Status: Never used Tobacco e-Cigarette/Vaping Use: Never Used Second Hand Smoke Exposure: No service: Yes Current occupational status: employed Cognitive needs: No Hearing needs: No Vision needs: No Questionnaire PHQ-9 Over the last 2 weeks, how often have you been bothered by any of the following problems? 1. Little interest or pleasure in doing things: not at all 2. Feeling down, depressed, or hopeless: not at all 3. Trouble falling or staying asleep, or sleeping too much: not at all 4. Feeling tired or having little energy: not at all 5. Poor appetite or overeating: not at all 6. Feeling bad about yourself - or that you are a failure or have let yourself or your family down: not at all 7. Trouble concentrating on things, such as reading the newspaper or watching television: not at all 8. Moving or speaking so slowly that other people could have noticed. Or the opposite - being so fidgety or restless that you have been moving around a lot more than usual: not at all 9. Thoughts that you would be better off or of hurting yourself in some way: not at all Total score: 0 Depression Screening Interpretation: Negative Depression Screening Done: Yes 74245 - PHQ-9 Billing: Yes Source: Developed by Drs. Raul Capps, Yissel Alonzo, Casey Roca and colleagues, with an educational alexy from [employer]. Thrive Questionnaire Date Thrive assessed: 04/09/23 I am a: Patient What is your living situation today?: I have a steady place to live Within the past 12 months, did the food you bought not last and you didn't have the money to get more?: Never true Within the past 12 months, did you worry whether your food would run out before you got money to buy more?: Never true Do you have trouble paying for medicines?: No Do you have trouble getting transportation to medical appointments?: No Do you have trouble paying your heating and electricity bill?: No Do you have trouble taking care of your child, family member or friend?: No Do you have trouble with day-to-day activities such as bathing, preparing meals, shopping, managing finances, etc.?: No Are you currently unemployed and looking for a job?: No Are you interested in more education?: No Please select the resources that you would like help with: None Currently or been in a relationship where the following occur: no concerns reported THRIVE Score: 0 AUDIT C Alcohol Use Questionnaire (AUDIT-C) 1. How often do you have a drink containing alcohol?: Never Total Score: 0 MAHIN-7 AMB Questionnaire MAHIN-7 Date MAHIN - 7 assessed: 04/09/23 Feeling nervous, anxious, or on edge: 1 = Several days Not being able to stop or control worryin = Several days Worrying too much about different things: 0 = Not at all Trouble relaxin = Not at all Being so restless that it is hard to sit still: 0 = Not at all Becoming easily annoyed or irritable: 0 = Not at all Feeling afraid as if something awful might happen: 0 = Not at all Total MAHIN-7 score (0-4 normal; 5-9 mild; 10-14 moderate; 15-21 severe): 2 Source: Developed by Drs. Raul Capps, Yissel Alonzo, Casey Roca and colleagues, with an educational alexy from [employer]. MAHIN-7 Assessment Billing MAHIN-7 Assessment Tool: MAHIN-7 Assessment 02448 Review of Systems Const Denies chills, Denies headache(s) and Denies weight loss ENT Denies headache(s) Card Denies chest pain, Denies syncope, Denies irregular heart rhythm and Denies dyspnea Resp Denies chest congestion, Denies cough and Denies dyspnea GI Denies abdominal pain, Denies change in stool character, Denies nausea and Denies vomiting Musc Denies deformity and Denies joint swelling Neuro Denies syncope and Denies headache(s) Physical exam (Primary Care) Vital Signs: Last Vital Signs Pulse 90 04/09/23 09:02 BP 126/82 04/09/23 09:02 Pulse Ox 97 04/09/23 09:02 Oxygen Delivery Method Room Air 04/09/23 09:02 BMI result Body Mass Index 34.0 Tobacco/Smoking Status: Tobacco use Status Tobacco use date assessed 04/09/23 04/09/23 09:07 Patient Tobacco Use Status Never used Tobacco 04/09/23 09:07 e-Cigarette/Vaping Use Never Used 04/09/23 09:07 PHQ-9: PHQ-9 Score PHQ-9: Total score 0 04/09/23 09:07 Depression Screening Interpretation: Negative Thrive Assessment: Date of Thrive Assessment Date Thrive assessed 04/09/23 04/09/23 09:07 Currently or been in a relationship where the following occur: no concerns reported Const General: cooperative, comfortable, no acute distress and alert Neck Neck: Yes no lymphadenopathy Thyroid: Thyroid normal Resp Effort & Inspection: normal respiratory effort Auscultation: clear to auscultation bilaterally Percussion: percussion normal Cardio Jugular venous distension: no JVD Palpation: normal PMI Rate: regular rate Rhythm: regular rhythm Heart sounds: S1 normal heart sound present and S2 normal heart sound present GI Inspection: Yes normal to inspection Palpation (GI): No hepatosplenomegaly present Skin General skin exam: no rashes or lesions noted Extrem General: Yes no clubbing, cyanosis or edema Assessment and Plan Assessment & Plan (1) Osteoarthritis cervical spine: Code(s): M47.812 - Spondylosis without myelopathy or radiculopathy, cervical region Plan: MRI ordered; refuses PT Orders: Orders XR knee RT 2V Today M25.569 - Pain in unspecified knee XR knee LT 2V Today M25.569 - Pain in unspecified knee MR cervical spine wo con Today M47.812 - Spondylosis without myelopathy or radiculopathy, cervical region Coding Level of Care Code Est Pt Level 3 (54216) Diagnoses Osteoarthritis cervical spine M47.812 Additional Codes MAHIN-7 Assessment Billing - MAHIN-7 Assessment Tool: MAHIN-7 Assessment [id number] ([id number])
== END 2023-04-09 09:36 | disposition home or self-care (01) ==
PROVIDERS: PCP Internal Medicine; Visit Provider Internal Medicine
DX: M47.812 Spondylosis without myelopathy or radiculopathy, cervical region (principal)
CPT/HCPCS: 99213

== ENCOUNTER 2023-05-05 10:12 | Outpatient (REF) | payer OTHER, SELFPAY ==
--- NOTE | ~2023-05-05 | XR_ITS ---
EXAMINATION: BILATERAL KNEES CLINICAL INFORMATION: Bilateral knees. COMPARISON: None available. TECHNIQUE: 2 views each knee. FINDINGS: RIGHT: On the right, there is mild narrowing of the medial compartment. The lateral compartment and patellofemoral compartment are well-maintained. No joint effusion or chondrocalcinosis. No fractures or dislocations. LEFT: No significant bone, joint or soft tissue abnormality is seen. XR/XR knee LT 2V IMPRESSION: Mild narrowing of the medial compartment of the right knee.
--- NOTE | ~2023-05-05 | XR_ITS ---
EXAMINATION: BILATERAL KNEES CLINICAL INFORMATION: Bilateral knees. COMPARISON: None available. TECHNIQUE: 2 views each knee. FINDINGS: RIGHT: On the right, there is mild narrowing of the medial compartment. The lateral compartment and patellofemoral compartment are well-maintained. No joint effusion or chondrocalcinosis. No fractures or dislocations. LEFT: No significant bone, joint or soft tissue abnormality is seen. XR/XR knee RT 2V IMPRESSION: Mild narrowing of the medial compartment of the right knee.
== END 2023-05-05 10:13 | disposition home or self-care (01) ==
LOC: HO.XRAY 10:12
PROVIDERS: PCP Internal Medicine; Visit Provider Internal Medicine
DX: M25.561 Pain in right knee (principal); M25.562 Pain in left knee
CPT/HCPCS: 73560

== ENCOUNTER 2023-05-06 07:36 | Outpatient (REF) | payer OTHER, SELFPAY ==
[2023-05-06 07:54] LABS: MANUAL DIFF FLAG NO
[2023-05-06 08:27] LABS: Basophils Percent Auto 0.4 % (0-2); Eosinophils Absolute Auto 0.1 X10*3/uL (0.0-0.4); Eosinophils Percent Auto 1.6 % (0-4); Hematocrit 42.4 % (42.0-52.0); Hemoglobin 14.3 g/dl (14.0-18.0); Imm Gran Abs Auto 0.02 X10*3/uL (0.00-0.03); Imm Gran Pct Auto 0.3 % (0.0-0.4); Lymphocytes Absolute Auto 2.6 X10*3/uL (1.2-4.9); Lymphocytes Percent Auto 37.5 % (20-40); Mean Corpuscular HGB Conc 33.7 g/dl (31.0-36.0); Mean Corpuscular Hemoglobin 30.6 pg (27.0-33.0); Mean Corpuscular Volume 90.6 fL (80.0-98.0); Monocytes Absolute Auto 0.6 X10*3/uL (0.1-1.2); Monocytes Percent Auto 9.2 % (2-11); Neutrophils Absolute Auto 3.6 x10*3/uL (2.0-8.3); Platelet Count 240 X10*3/uL (160-400); Red Blood Count 4.68 X10*6/uL (4.60-5.80)
[2023-05-06 08:58] LABS: Alanine Aminotransferase 75 U/L (0-40); Albumin Level 4.6 g/dL (3.5-5.0); Alkaline Phosphatase 75 U/L (39-117); Anion Gap 11 (12-20); Aspartate Amino Transferase 37 U/L (5-37); Bilirubin Total 0.3 mg/dL (0.0-1.0); Blood Urea Nitrogen 17 mg/dL (9-16); Calcium 9.9 mg/dL (8.4-10.2); Carbon Dioxide 26 mmol/L (22-29); Chloride 109 mmol/L (96-108); Cholesterol 294 mg/dL (<200); Estimated Glomerular Filt Rate > 60; Glucose Fasting 100 mg/dL (60-99); HDL Cholesterol 43 mg/dL (>40); LDL Cholesterol Calculated 223 mg/dL (<100); Potassium 4.5 mmol/L (3.3-5.1); Sodium 141 mmol/L (135-145); Total Protein 7.6 g/dL (6.5-8.0); Triglycerides 141 mg/dL (<150)
[2023-05-06 09:14] LABS: Thyroid Stimulating Hormone 3.52 uIU/mL (0.32-4.0)
[2023-05-07 07:39] LABS: Sex Hormone Binding Globulin 27 nmol/L (10-50)
[2023-05-07 11:18] LABS: Follicle Stimulating Hormone 6.7 mIU/mL (1.4-12.8); Lutenizing Hormone 4.9 mIU/mL (1.5-9.3); Prolactin 7.1 ng/mL (2.0-18.0)
[2023-05-13 12:13] LABS: Testosterone, Total 337 ng/dL (250-1100)
== END 2023-05-06 07:37 | disposition home or self-care (01) ==
LOC: HO.LAB 07:36
PROVIDERS: Absent Provider Nurse Practitioner Family; PCP Internal Medicine; Visit Provider Internal Medicine
DX: E03.9 Hypothyroidism, unspecified (principal); D64.9 Anemia, unspecified; N28.9 Disorder of kidney and ureter, unspecified; E29.1 Testicular hypofunction
CPT/HCPCS: 36415; 80053; 80061; 83001; 83002; 84146; 84270; 84402; 84403; 84443; 85025

== ENCOUNTER 2023-07-22 09:00 | Outpatient (REF) | payer OTHER, SELFPAY ==
[2023-07-26 16:39] LABS: Testosterone, Free 54.5 pg/mL (35.0-155.0); Testosterone, Total 330 ng/dL (250-1100)
== END 2023-07-22 09:01 | disposition home or self-care (01) ==
LOC: HO.LAB 09:00
PROVIDERS: PCP Internal Medicine; Visit Provider Nurse Practitioner Family
DX: E29.1 Testicular hypofunction (principal)
CPT/HCPCS: 36415; 84402; 84403

== ENCOUNTER 2023-08-05 08:35 | Outpatient (AMB) | payer OTHER, SELFPAY ==
--- NOTE | 2023-08-05 08:43 | A.OFFVIS_ITS ---
Intake Visit Reasons: 6m/testo(set) Intake Note: Patient presents today for follow up on: Testosterone labs Testosterone: 330; Free Testosterone: 54.5 Urology Medications: none Blood Thinner: none Dental Amalgam Processor Required: No Accompanied by: Self / Same As Patient Allergies No Known Allergies Allergy (Verified 08/05/23 08:52) Medication List - Last Reconciled 08/05/23 by ASHELY Mondragon diclofenac potassium 50 mg PO BID PRN gabapentin mg PO loratadine (Claritin) 10 mg PO DAILY sumatriptan succinate (Imitrex) take 1 tab at onset of headache; if no relief may repeat 1 tab after at least 2 hrs; max = 4 tabs/24 hr PO tizanidine 4 mg PO Q8H PRN 30 days tramadol 50 mg PO Q6H PRN HPI Comments Details: Kyle is a very pleasant 47 year old male patient of Dr. Elizondo. He presents to the office today for follow-up of his nephrolithiasis, intermittent/ongoing testicular pain, and urinary issues. He has a past medical history of hyperlipidemia, anxiety, obesity, lumbar radiculopathy, and sleep disorder. In discussion with the patient today he continues to report issues with fatigue despite multiple workups. He discusses continuing to follow-up wit h his PCP Dr. Wynne regarding this issue. He also continues to report void intermittent ongoing testicular pain despite denervation with Dr. Gonzales 01/21. Discussed further treatment options however patient does not feel this is bothersome to him at this time. He also reports noting right-sided flank pain at times when he does not drink enough water. He reports upon hydration for few days flank pain subsides. He otherwise denies any bothersome urinary issues or concerns. He has previously trialed low-dose Cialis however started experiencing increased back pain therefore it was discontinued. Previous workup has included a retroperitoneal ultrasound noting right kidney no renal calculi or hydronephrosis. 2.9 x 2.2 x 2.6 cm simple exophytic cyst in the upper pole. No follow-up imaging is recommended per radiology report. Left kidney with no lesions or hydroephrosis noted. 0.3 x 0.2 x 0.3 cm echogenic focus is seen in the mid kidney and likely represents a nonobstructing calculus. PSA 09/21 1.1 LH 05/23 4.9 Prolactin 05/23 7.1 SHBG 05/23 27 Testosterone: 02/20 319, 09/21 314, 02/21 199, 05/23 337, 07/23 330 Free testosterone: 02/20 43.7, 09/21 44.0, 02/21 30.0, 05/23 58.0, 07/23 54.5 Discussed at length importance of adequate sleep, healthy eating habits, weight loss, and daily exercise/brisk walking daily for further improvement in fatigue and mood as well as overall health and well-being. He discusses having had two home sleep studies that he feels have not been accurate. He states he has anesthesia in the past and multiple anesthesiologists have told him he has sleep apnea. He is requesting in center study for further assessment evaluation. He otherwise denies urinary urgency, urinary frequency, incontinence, nocturia, hematuria, dysuria, foul smelling urine, changes to urinary stream, fever, and or chills. He is happy with his current voiding parameters. Previous office note information: Bilateral testicular pain following vasectomy Underwent bilateral micro denervation 01/21 with good initial effect Will continue to trend testosterone levels. Nephrolithiasis Had been seen in [facility] emergency room. Still has persistent right flank pain. Imaging - 05/20 ultrasound with right hydro ureteral nephrosis but no stone seen. Presumed distal to imaging - 06/20 CAMILA right renal cyst 2cm - 01/20 renal ultrasound right renal cyst 2 cm no evidence of stones Therapeutic plan - repeat imaging (renal ultrasound) increased fluid and watch salt [facility] Medical History (Updated 08/05/23 @ 09:55 by ASHELY Mondragon) Fatigue Physical exam Urinary dribbling Urinary urgency Foot pain Right hip pain Muscle spasm of back Orchalgia Light headedness Body aches Difficulty urinating Skin lesion Back pain Arthritis Sleep disorder Renal calculi Depression Lumbar facet arthropathy Low back pain Hyperlipidemia Obesity Anxiety Surgical History History of back surgery History of testicular surgery H/O elbow surgery History of vasectomy Family History Father No problems noted. Mother No problems noted. Social History Housing: House Are you a primary daycare director to a significant other at home: No Do you presently have visiting nurse or other home services: No Alcohol intake: never Patient Tobacco Use Status: Never used Tobacco e-Cigarette/Vaping Use: Never Used Second Hand Smoke Exposure: No service: Yes Current occupational status: employed Cognitive needs: No Hearing needs: No Vision needs: No Review of Systems Const All systems reviewed & are unremarkable except as noted in HPI and below Reports no additional complaints Eyes Reports no additional complaints ENT Reports no additional complaints Card Reports no additional complaints Resp Reports no additional complaints GI Reports no additional complaints Reports as per HPI Musc Reports no additional complaints Neuro Reports no additional complaints Psych Reports as per HPI Endo Reports no additional complaints Dick/Lymph Reports no additional complaints Aller/Immun Reports no additional complaints Physical Exam Const General: cooperative, healthy appearing, comfortable, no acute distress, well developed, alert and awake Orientation/consciousness: patient oriented x3 Limitations: no limitations HEENT Head: Yes normal to inspection, Yes normocephalic and Yes atraumatic Ears: hearing grossly normal bilaterally Eyes General: appearance normal, both eyes and all related structures Neck Neck: Yes normal visual inspection and Yes trachea midline Chest Chest palpation & inspection: normal inspection of the chest Resp Effort & Inspection: normal respiratory effort and able to speak in complete sentences Cardio Rate: regular rate GI Inspection: Yes normal to inspection General: Yes no CVA tenderness Back/Spine/Pelvis Back: no CVA tenderness Skin General skin exam: no rashes or lesions noted Neuro General: patient oriented x3 Extrem General: Yes normal to inspection Psych Appearance: grossly normal and well kempt Mental Status: mental status grossly normal Speech and movement: Normal speech and movement present and Clear speech present Affect: normal affect Attitude: cooperative Thought process: Normal thought process present Thought content: Normal thought content present Insight: Fair insight present (Psych) Judgement: Fair judgement present (Psych) Results AMB Urinalysis, Automated UA Leukoctes 0 Keisha/uL Last Edit by Silvia Manzanares on 08/05/23 09:01 UA Nitrite Negative Last Edit by Henricristofer Leighanncorinne on 08/05/23 09:01 UA Urobilinogen 0.2 mg/dL Last Edit by Silvia Manzanares on 08/05/23 09:01 UA Protein 0 mg/dL Last Edit by Silvia Manzanares on 08/05/23 09:01 UA pH 6.0 Last Edit by Silvia Manzanares on 08/05/23 09:01 UA Blood 0 Kwasi/uL Last Edit by Silvia Manzanares on 08/05/23 09:01 UA Specific [place] 1.015 Last Edit by Silvia Manzanares on 08/05/23 09:01 UA Ketone Negative Last Edit by Silvia Manzanares on 08/05/23 09:01 UA Bilirubin 0 mg/dL Last Edit by Silvia Manzanares on 08/05/23 09:01 UA Glucose 0 mg/dL Last Edit by Silvia Manzanares on 08/05/23 09:01 Results Reviewed Results Reviewed: Laboratory Last Values Urine pH (Auto) 6.0 08/05/23 08:49 Specific [place] (Auto) 1.015 08/05/23 08:49 Urine Protein (Auto) 0 mg/dL 08/05/23 08:49 Glucose (UA)(Auto) 0 mg/dL 08/05/23 08:49 Urine Ketones (Auto) Negative 08/05/23 08:49 Urine Blood (Auto) 0 Kwasi/uL 08/05/23 08:49 Urine Nitrite (Auto) Negative 08/05/23 08:49 Urine Bilirubin (Auto) 0 mg/dL 08/05/23 08:49 Urine Urobilinogen (Auto) 0.2 mg/dL 08/05/23 08:49 Leukocyte Esterase (Auto) 0 Keisha/uL 08/05/23 08:49 Assessment & Plan Assessment & Plan (1) Fatigue: Code(s): R53.83 - Other fatigue Category: Medical (2) Snoring: Code(s): R06.83 - Snoring Category: Medical (3) Nephrolithiasis: Code(s): N20.0 - Calculus of kidney Category: Medical (4) Flank pain: Code(s): R10.9 - Unspecified abdominal pain Category: Medical Plan In office urinalysis results reviewed with the patient today; as noted above. Recent testosterone results reviewed with the patient today; as noted above. Discussed at length lifestyle modifications to assist with fatigue. Patient currently denies any bothersome urinary issues or concerns. He reports be happy with current voiding parameters. Discussed further treatment options for intermittent scrotal pain patient is e xperiencing; however will continue with surveillance monitoring at this time. Will obtain renal ultrasound for further assessment evaluation. Referral provided for sleep medicine for potential in center sleep study per patient request. Follow-up in 1-3 months with imaging to be completed prior; or sooner with any issues, concerns, and or questions. Orders: Orders US renal BI Today N20.0 - Calculus of kidney AMB Urinalysis Automated Today Z13.9 - Encounter for screening, unspecified Referrals Sleep Medicine Referral R06.83 - Snoring, R53.83 - Other fatigue Patient Instructions: The patient had an opportunity to ask questions regarding the treatment plan. All questions were answered. Physical exam, labs, and imaging were discussed and reviewed in detail. As well as risks, benefits, and discussion of treatment choices. No major barriers to understanding were identified. The patient expressed understanding and agreement with the above treatment plan. The patient was made aware they should contact our office by phone for worsening of their current condition, the appearance of new symptoms, or with any questions or concerns. Compliance is encouraged with any medications and follow up testing that is ordered. It is a privilege to be allowed the opportunity to participate in? your urological care.? Again, if you have any questions or concerns If you have any questions or concerns please do not hesitate to contact me. The office is [phone]. This note is constructed using voice recognition software. While every effort stokes s been made to ensure accuracy insemination worker errors may have been included. Yours sincerely, ASHELY Mondragon Coding Level of Care Code Est Pt Level 3 (41830) Complex EM visit Add On G2211 Diagnoses Fatigue R53.83 Snoring R06.83 Nephrolithiasis N20.0 Flank pain R10.9
== END 2023-08-05 09:17 | disposition home or self-care (01) ==
PROVIDERS: PCP Internal Medicine; Visit Provider Nurse Practitioner Family
DX: Z13.9 Encounter for screening, unspecified (principal)
CPT/HCPCS: 99213; G2211

== ENCOUNTER → 2023-08-05 08:35 | Outpatient (BNVA) | payer OTHER, SELFPAY | PROVIDERS: PCP Internal Medicine; Visit Provider Nurse Practitioner Family | DX: N20.0 Calculus of kidney (principal); R10.9 Unspecified abdominal pain; R53.83 Other fatigue; R06.83 Snoring | CPT/HCPCS: 81003; 99212 ==

== ENCOUNTER 2023-09-30 07:58 | Outpatient (REF) | payer OTHER, SELFPAY ==
--- NOTE | ~2023-09-30 | US_ITS ---
EXAMINATION: US RETROPERITONEAL LIMITED (RENAL ONLY) CLINICAL INFORMATION: Calculus of kidney. COMPARISON: Ultrasound renal 09/05/2022 and 12/12/2020. TECHNIQUE: Real-time imaging of the kidneys. Limited visualization due to bowel gas. FINDINGS: RIGHT KIDNEY: 12.1 x 5.8 x 5.9 cm (SAG x AP x TRV). No hydronephrosis. No renal calculi. Renal cortical thickness is normal. Limited visualization. Redemonstration of 3.4 cm upper pole cyst with benign features. There is no indication for follow-up imaging. LEFT KIDNEY: 11.1 x 6.3 x 5.8 cm (SAG x AP x TRV). No hydronephrosis. No renal calculi. Renal cortical thickness is normal. Limited visualization. US/US renal BI IMPRESSION: No hydronephrosis. No renal calculi.
== END 2023-09-30 07:59 | disposition home or self-care (01) ==
LOC: HO.US 07:58
PROVIDERS: PCP Internal Medicine; Visit Provider Nurse Practitioner Family
DX: N20.0 Calculus of kidney (principal)
CPT/HCPCS: 76775

== ENCOUNTER 2023-10-12 10:14 | Outpatient (AMB) | payer OTHER, SELFPAY ==
--- NOTE | 2023-10-12 10:57 | A.OFFVIS_ITS ---
Intake Visit Reasons: 2m/US(set) Intake Note: Patient presents today for follow up on: Nephrolithiasis and ultrasound results Imaging Completed: 09/30/23 Urology Medications: none Blood Thinner: none Shaper Setter Required: No Accompanied by: Self / Same As Patient Allergies No Known Allergies Allergy (Verified 10/12/23 11:06) HPI Comments Details: Kyle is a very pleasant 47 year old male patient of Dr. Elizondo. He presents to the office today for follow-up of his nephrolithiasis, intermittent/ongoing testicular pain, and urinary issues. He has a past medical history of hyperlipidemia, anxiety, obesity, lumbar radiculopathy, and sleep disorder. In discussion with the patient today he continues to report issues with fatigue despite multiple workups. He discusses continuing to follow-up with his PCP Dr. Wynne regarding this issue. He also continues to report intermittent ongoing testicular pain despite denervation with Dr. Gonzales 01/21. Discussed further treatment options however patient does not feel this is bothersome to him at this time. He reports continue follow-up with pain management for ongoing back pain and is currently on Diclofenac, gabapentin and p.r.n. tramadol. During last office visit patient had been reporting flank pain and has a history of nephrolithiasis therefore a renal ultrasound was ordered and performed. These results were reviewed with the patient today. Bilateral kidneys with no calculi or hydronephrosis. Redemonstration of 3.4 cm upper pole cyst with benign features that requires no indication for follow-up imaging per radiology report. He otherwise denies any bothersome urinary issues or concerns. Previously patient had been worked up for possible hypogonadism given ongoing issues with fatigue. Urological labs as noted below. He has previously trialed low-dose Cialis however started experiencing increased back pain therefore it was discontinued. PSA 09/21 1.1 LH 05/23 4.9 Prolactin 05/23 7.1 SHBG 05/23 27 Testosterone: 02/20 319, 09/21 314, 02/21 199, 05/23 337, 07/23 330 Free testosterone: 02/20 43.7, 09/21 44.0, 02/21 30.0, 05/23 58.0, 07/23 54.5 Discussed at length importance of adequate sleep, healthy eating habits, weight loss, and daily exercise/brisk walking daily for further improvement in fatigue and mood as well as overall health and well-being. He otherwise denies urinary urgency, urinary frequency, incontinence, nocturia, hematuria, dysuria, foul smelling urine, changes to urinary stream, fever, and or chills. He is happy with his current voiding parameters. Previous office note information: Bilateral testicular pain following vasectomy Underwent bilateral micro denervation 01/21 with good initial effect Will continue to trend testosterone levels. Nephrolithiasis Had been seen in [facility] emergency room. Still has persistent right flank pain. Imaging - 05/20 ultrasound with right hydro ureteral nephrosis but no stone seen. Presumed distal to imaging - 06/20 CAMILA right renal cyst 2cm - 01/20 renal ultrasound right renal cyst 2 cm no evidence of stones Therapeutic plan - repeat imaging (renal ultrasound) increased fluid and watch salt PFSH Medical History Fatigue Physical exam Urinary dribbling Urinary urgency Foot pain Right hip pain Muscle spasm of back Orchalgia Light headedness Body aches Difficulty urinating Skin lesion Back pain Arthritis Sleep disorder Renal calculi Depression Lumbar facet arthropathy Low back pain Hyperlipidemia Obesity Anxiety Surgical History History of back surgery History of testicular surgery H/O elbow surgery History of vasectomy Family History Father No problems noted. Mother No problems noted. Social History Housing: House Are you a primary career transition specialist to a significant other at home: No Do you presently have visiting nurse or other home services: No Alcohol intake: never Patient Tobacco Use Status: Never used Tobacco e-Cigarette/Vaping Use: Never Used Second Hand Smoke Exposure: No service: Yes Current occupational status: employed Cognitive needs: No Hearing needs: No Vision needs: No Review of Systems Const All systems reviewed & are unremarkable except as noted in HPI and below Reports no additional complaints Eyes Reports no additional complaints ENT Reports no additional complaints Card Reports no additional complaints Resp Reports no additional complaints GI Reports no additional complaints Reports as per HPI Musc Reports no additional complaints Neuro Reports no additional complaints Psych Reports as per HPI Endo Reports no additional complaints Dick/Lymph Reports no additional complaints Aller/Immun Reports no additional complaints Physical Exam Const General: cooperative, healthy appearing, comfortable, no acute distress, well developed, alert and awake Orientation/consciousness: patient oriented x3 Limitations: no limitations HEENT Head: Yes normal to inspection, Yes normocephalic and Yes atraumatic Ears: hearing grossly normal bilaterally Eyes General: appearance normal, both eyes and all related structures Neck Neck: Yes normal visual inspection and Yes trachea midline Chest Chest palpation & inspection: normal inspection of the chest Resp Effort & Inspection: normal respiratory effort and able to speak in complete sentences Cardio Rate: regular rate GI Inspection: Yes normal to inspection General: Yes no CVA tenderness Back/Spine/Pelvis Back: no CVA tenderness Skin General skin exam: no rashes or lesions noted Neuro General: patient oriented x3 Extrem General: Yes normal to inspection Psych Appearance: grossly normal and well kempt Mental Status: mental status grossly normal Speech and movement: Normal speech and movement present and Clear speech present Affect: normal affect Attitude: cooperative Thought process: Normal thought process present Thought content: Normal thought content present Insight: Fair insight present (Psych) Judgement: Fair judgement present (Psych) Results AMB Urinalysis, Automated UA Leukoctes 0 Keisha/uL Last Edit by [employer]day on 10/12/23 11:10 UA Nitrite Negative Last Edit by Workday on 10/12/23 11:10 UA Urobilinogen 0.2 mg/dL Last Edit by Workday on 10/12/23 11:10 UA Protein 0 mg/dL Last Edit by Workday on 10/12/23 11:10 UA pH 6.0 Last Edit by Workday on 10/12/23 11:10 UA Blood 0 Kwasi/uL Last Edit by Workday on 10/12/23 11:10 UA Specific [place] 1.025 Last Edit by Workday on 10/12/23 11:10 UA Ketone Negative Last Edit by Workday on 10/12/23 11:10 UA Bilirubin 0 mg/dL Last Edit by Silvia Manzanares on 10/12/23 11:10 UA Glucose 0 mg/dL Last Edit by Silvia Manzanares on 10/12/23 11:10 Results Reviewed Results Reviewed: Laboratory Last Values Urine pH (Auto) 6.0 10/12/23 11:09 Specific [place] (Auto) 1.025 10/12/23 11:09 Urine Protein (Auto) 0 mg/dL 10/12/23 11:09 Glucose (UA)(Auto) 0 mg/dL 10/12/23 11:09 Urine Ketones (Auto) Negative 10/12/23 11:09 Urine Blood (Auto) 0 Kwasi/uL 10/12/23 11:09 Urine Nitrite (Auto) Negative 10/12/23 11:09 Urine Bilirubin (Auto) 0 mg/dL 10/12/23 11:09 Urine Urobilinogen (Auto) 0.2 mg/dL 10/12/23 11:09 Leukocyte Esterase (Auto) 0 Keisha/uL 10/12/23 11:09 Date of Service: 09/30/23 EXAMINATION: US RETROPERITONEAL LIMITED (RENAL ONLY) FINDINGS: RIGHT KIDNEY: 12.1 x 5.8 x 5.9 cm (SAG x AP x TRV). No hydronephrosis. No renal calculi. Renal cortical thickness is normal. Limited visualization. Redemonstration of 3.4 cm upper pole cyst with benign features. There is no indication for follow-up imaging. LEFT KIDNEY: 11.1 x 6.3 x 5.8 cm (SAG x AP x TRV). No hydronephrosis. No renal calculi. Renal cortical thickness is normal. Limited visualization. IMPRESSION: No hydronephrosis. No renal calculi. Assessment & Plan Assessment & Plan (1) Fatigue: Code(s): R53.83 - Other fatigue Category: Medical (2) Nephrolithiasis: Code(s): N20.0 - Calculus of kidney Category: Medical Plan In office urinalysis results reviewed with the patient today; as noted above. Discussed at length lifestyle modifications to assist with fatigue. Recent renal ultrasound results reviewed with the patient today; as noted above. Patient currently denies any bothersome urinary issues or concerns. He reports be happy with current voiding parameters. Discussed further treatment options for intermittent scrotal pain patient is experiencing; however will continue with surveillance monitoring at this time. Will obtain testosterone free and total in 6 months Follow-up in 6 months with labs to be completed prior; or sooner with any issues, concerns, and or questions. Orders: Orders AMB Urinalysis Automated Today Z13.9 - Encounter for screening, unspecified Testosterone, Free/Total 6 Months R53.83 - Other fatigue Patient Instructions: The patient had an opportunity to ask questions regarding the treatment plan. All questions were answered. Physical exam, labs, and imaging were discussed and reviewed in detail. As well as risks, benefits, and discussion of treatment choices. No major barriers to understanding were identified. The patient expressed understanding and agreement with the above treatment plan. The patient was made aware they should contact our office by phone for worsening of their current condition, the appearance of new symptoms, or with any questions or concerns. Compliance is encouraged with any medications and follow up testing that is ordered. It is a privilege to be allowed the opportunity to participate in? your urological care.? Again, if you have any questions or concerns If you have any questions or concerns please do not hesitate to contact me. The office is [phone]. This note is constructed using voice recognition software. While every effort has been made to ensure accuracy order checker packer processer errors may have been included. Yours sincerely, ASHELY Mondragon Coding Level of Care Code Est Pt Level 3 (98308) Diagnoses Fatigue R53.83 Nephrolithiasis N20.0
== END 2023-10-12 11:21 | disposition home or self-care (01) ==
PROVIDERS: PCP Internal Medicine; Visit Provider Nurse Practitioner Family
DX: R53.83 Other fatigue (principal); N20.0 Calculus of kidney; Z13.9 Encounter for screening, unspecified
CPT/HCPCS: 99213

== ENCOUNTER → 2023-10-12 10:14 | Outpatient (BNVA) | payer OTHER, SELFPAY | PROVIDERS: PCP Internal Medicine; Visit Provider Nurse Practitioner Family | DX: N20.0 Calculus of kidney (principal); R53.83 Other fatigue | CPT/HCPCS: 81003; 99212 ==

== ENCOUNTER 2024-02-16 07:24 | Outpatient (AMB) | payer OTHER, SELFPAY ==
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
--- OUTSIDE RECORDS SUMMARY | 2024-02-16 07:27 | XMS_ITS ---
Author Name [facility] [place] Organization [facility] [place] [facility] [place] Address [address] [place] [id number] Support Name Relationship Address Phone SRIRAM HURTADO Next of Kin [address] [place] [address] HURTADOSRIRAM MAZARIEGOS Emergency Contact [address] [place] [address] Selected Encounter This section includes the information on record at [place] for the Encounter. 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 Date/Time Primary/Secondary Diagnosis Diagnosis Name Provider Source Jun 10, 2023 03:50 PM PRIMARY [facility] history of [facility] Jun 10, 2023 03:50 PM SECONDARY Problems of adjustment to life-cycle transitions MUSA BERNAL [facility] Plan of Treatment: Future Appointments (+ 6 months) and Future Tests (+/- 45 days) The Plan of Treatment section includes future care activities for the patient from all [place] treatmentfacilities. This section includes future appointments and future orders which are active, pending or scheduled. Future Appointments This section includes appointments that were scheduled to occur 6 months from the date of the Encounter, up to a maximum of 20 appointments. The data comes from all [place] treatment facilities. Appointment Date/Time Appointment Type Appointme nt Facility Name Jun 19, 2023 10:00 AM AMBULATORY - MEDICINE [facility] [place] [facility] Jun 23, 2023 08:00 AM [facility] [place] [facility] Jun 24, 2023 08:00 AM AMBULATORY - PSYCHIATRY [facility] July 07, 2023 10:00 AM AMBULATORY - NONE [facility] [place] [facility] July 16, 2023 08:30 AM AMBULATORY - PSYCHIATRY [facility] July 20, 2023 02:00 PM AMBULATORY - MEDICINE [facility] July 21, 2023 10:00 AM AMBULATORY [facility]ICINE [facility] [place] [facility] July 22, 2023 12:00 PM AMBULATORY - [facility]ICINE [facility] [place] [facility] July 24, 2023 02:00 PM AM[facility]ULATORY [facility]INE [facility] [place] [facility] July 31, 2023 10:00 AM AMBULATORY - NONE [facility] [place] [facility] Aug 06, 2023 09:30 AM AMBULATORY [facility]ICINE [facility] [place] [facility] Aug 11, 2023 10:00 AM AMBULATORY - [facility]IATRY [facility] [place] [facility] Sep 11, 2023 08:30 AM AMBULATORY - REHAB MEDICIN E [facility] [place] [facility] Sep 21, 2023 11:00 AM AMBULATORY - MEDICINE [facility] [place] [facility] Sep 23, 2023 04:00 PM AMBULATORY - REHAB MEDICIN E [facility] [place] [facility] Sep 24, 2023 02:00 PM AMBULATORY - PS[facility]CHIATRY [facility] [place] [facility] Sep 25, 2023 08:15 AM AMBULATORY - MEDICINE [facility] [place] [facility] Sep 28, 2023 11:00 AM AMBULATORY - MEDICINE [facility] [place] [facility] Oct 01, 2023 03:30 PM AMBULATORY - REHAB MEDICIN E [facility] [place] [facility] Oct 05, 2023 11:00 AM AM[facility]ULATORY [facility]INE [facility] [place] [facility] Encounter Notes: All associated encounter notes This section contains the clinical notes associated to the Encounter. Date/Time Encounter Note(s) Provider Source Jun 10, 2023 03:50 PM OEF/OIF NOTE: LOCAL TITLE: OEF-OIF CM SOCIAL WORK NOTE STANDARD TITLE: OEF/OIF NOTE DATE OF NOTE: JUN 10, 2023@15:50 ENTRY DATE: JUN 10, 2023@15:50:31 AUTHOR: JENA BERNAL COSIGNER: URGENCY: STATUS: COMPLETED [place] referred to typewriter assembler by [facility] staff for assistance with transition. 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 [place] class II dental, would like to be seen by dental, will place consult. will be traveling until 06/19/23, agreed to meet with typewriter assembler on [facility] that day for assessment, education, further referral. [place] with no unresolved questions or concerns, agreed to reach out to typewriter assembler in the interim as needed. /cherri/ RENALDO Poole LICENSED CLINICAL UPSCALE SECURITY OFFICER Signed: 06/10/2023 15:59 Receipt Acknowledged By: 06/11/2023 15:31 /cherri/ SRIRAM HUGO COMPUTER PROJECT MANAGER NEUROPSYCHIATRIST [place]ENA [facility] [facility]
--- OUTSIDE RECORDS SUMMARY | 2024-02-16 07:27 | XMS_ITS | Continuity of Care Document ---
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 tetanus toxoid, reduced diphtheri a toxoid, and acellular pertussis vaccine, adsorbed DoD influenza virus vaccine, live 2009 [id number] 111 Seakeeper Inc comple t ed influenza virus vaccine, live 01/03/10 Given Ambulat ory Pharmac y influenza virus vaccine, live 2009 [id number] 111 MediFirst[employer] Inc comple t ed influenza virus vaccine, live 01/03/10 Given Ambulat ory Pharmac y influenza virus vaccine, live, attenuated, for intranasal use 1 2009 [id number] 111 Postify, Inc. (MED) complet ed influenza virus vaccine, live, attenuate d, for intranasa l use DoD Novel influenza-H1N 1-09, injectable 2009 [id number] 1 127 Novartis Pharmaceutica ls complet ed Novel influenza -[id number], injectabl e 04/10/09 Given Ambulat ory Pharmac y Novel influenza-H1N 1-09, injectable 2009 [id number] 1 127 Novartis Pharmaceutica ls complet ed Novel influenza -[id number], injectabl e 04/10/09 Given Ambulat ory Pharmac y Novel influenza-H1N 1-09, injectable 1 2009 [id number] 1 127 Novartis Pharmaceutica l Sarina. (NOV) complet ed Novel influenza -[id number], injectabl e DoD influenza virus vaccine, live 2008 [id number] 111 MediSmartAssetune Inc comple t ed influenza virus vaccine, live 11/30/08 Given Ambulat ory Pharmac y influenza virus vaccine, live 2008 [id number] 111 Medimmune Inc comple t ed influenza virus vaccine, live 11/30/08 Given Ambulat ory Pharmac y influenza virus vaccine, live, attenuated, for intranasal use 1 2008 [id number] 111 MedImmune, Inc. (MED) complet ed influenza virus vaccine, live, attenuate d, for intranasa l use DoD typhoid vaccine, live, oral 2008 [id number] 25 [employer] complet ed typhoid vaccine, live, oral 07/28/08 Given Ambulat ory Pharmac y anthrax vaccine 2008 [id number] 24 Emergent [employer]olutions complet ed anthrax vaccine 07/28/08 Given Ambulat ory Pharmac y meningococcal A,C,Y,W-135 (MCV4P) 2008 [id number] 114 sanofi pasteur complet ed meningoco ccal A,C,Y,W-1 35 (MCV4P) 07/28/08 Given Ambulat ory Pharmac y meningococcal A,C,Y,W-135 (MCV4P) 2008 [id number] 114 sanofi pasteur complet ed meningoco ccal A,C,Y,W-1 35 (MCV4P) 07/28/08 Given Ambulat ory Pharmac y typhoid vaccine, live, oral 2008 [id number] 25 [employer] complet ed typhoid vaccine, live, oral 07/28/08 Given Ambulat ory Pharmac y anthrax vaccine 2008 [id number] 24 [employer] complet ed anthrax vaccine 07/28/08 Given Ambulat ory Pharmac y anthrax vaccine 4 2008 [id number] 24 [employer] [place] (MIP) complet ed anthrax vaccine DoD typhoid vaccine, live, oral 1 2008 [id number] 25 [employer] (BP) complet ed typhoid vaccine, live, oral DoD meningococcal polysaccharid e (groups A, C, Y and W-135) diphtheria toxoid conjugate vaccine (MCV4P) 1 2008 [id number] 114 Sanofi Pasteur (PMC) complet ed meningoco ccal polysacch aride (groups A, C, Y and W-135) diphtheri a toxoid conjugate vaccine (MCV4P) DoD hepatitis B adult vaccine 2008 [id number] 1AA 43 GlaxoSmithKli ne complet ed hepatitis B adult vaccine 07/13/08 Given Ambulat ory Pharmac y hepatitis B adult vaccine 2008 [id number] 1AA 43 GlaxoSmithKli ne complet ed hepatitis B adult vaccine 07/13/08 Given Ambulat ory Pharmac y HEP B, ADULT 3 2008 43 complet ed [facility] hepatitis B vaccine, adult dosage 3 2008 [id number] 1AA 43 [facility] hepatitis B vaccine, adult dosage DoD influenza virus vaccine, live 2007 [id number] 111 2d2cune Inc comple t ed influenza virus vaccine, live 11/24/07 Given Ambulat ory Pharmac y hepatitis B adult vaccine 2007 [id number] 0AA 43 GlaxoSmithKli ne complet ed hepatitis B adult vaccine 11/24/07 Given Ambulat ory Pharmac y influenza virus vaccine, live 2007 [id number] 111 [employer]cune Inc comple t ed influenza virus vaccine, live 11/24/07 Given Ambulat ory Pharmac y hepatitis B adult vaccine 2007 [id number] 0AA 43 GlaxoSmithKli ne complet ed hepatitis B adult vaccine 11/24/07 Given Ambulat ory Pharmac y HEP B, ADULT 2 2007 43 complet ed [facility] hepatitis B vaccine, adult dosage 2 2007 [id number] 0AA 43 SmithKline (SKB) complet ed hepatitis B vaccine, adult dosage DoD influenza virus vaccine, live, attenuated, for intranasal use 1 2007 [id number] 111 Postify, Inc. (MED) complet ed influenza virus vaccine, live, attenuate d, for intranasa l use DoD rabies vaccine, IM 2007 [id number] 175 sanofi pasteur complet ed rabies vaccine, IM 06/30/07 Given Ambulat ory Pharmac y rabies vaccine, IM 2007 [id number] 175 sanofi pasteur complet ed rabies vaccine, IM 06/30/07 Given Ambulat ory Pharmac y rabies vaccine, for intramuscular injection RETIRED CODE 3 2007 [id number] 18 Sanofi Pasteur (PMC) complet ed rabies vaccine, for intramusc ular injection RETIRED CODE DoD yellow fever vaccine 2007 [id number] 37 sanofi pasteur complet ed yellow fever vaccine 06/10/07 Given Ambulat ory Pharmac y hepatitis B adult vaccine 2007 [id number] 6AA 43 GlaxoSmithKli ne complet ed hepatitis B adult vaccine 06/10/07 Given Ambulat ory Pharmac y yellow fever vaccine 2007 [id number] 37 sanofi pasteur complet ed yellow fever vaccine 06/10/07 Given Ambulat ory Pharmac y hepatitis B adult vaccine 2007 [id number] 6AA 43 GlaxoSmithKli ne complet ed hepatitis B adult vaccine 06/10/07 Given Ambulat ory Pharmac y HEP B, ADULT 1 2007 43 complet ed [facility] yellow fever vaccine 1 2007 [id number] 37 Sanofi Pasteur (PMC) complet ed yellow fever vaccine DoD hepatitis B vaccine, adult dosage 1 2007 [id number] 6AA 43 SmithKline (SKB) complet ed hepatitis B vaccine, adult dosage DoD rabies vaccine, IM 2007 [id number] 175 sanofi pasteur complet ed rabies vaccine, IM 06/04/07 Given Ambulat ory Pharmac y rabies vaccine, IM 2007 [id number] 175 sanofi pasteur complet ed rabies vaccine, IM 06/04/07 Given Ambulat ory Pharmac y rabies vaccine, for intramuscular injection RETIRED CODE 2 2007 [id number] 18 Sanofi Pasteur (PMC) complet ed rabies vaccine, for intramusc ular injection RETIRED CODE DoD rabies vaccine, IM 2007 [id number] 175 sanofi pasteur complet ed rabies vaccine, IM 05/28/07 Given Ambulat ory Pharmac y rabies vaccine, IM 2007 [id number] 175 sanofi pasteur complet ed rabies vaccine, IM 05/28/07 Given Ambulat ory Pharmac y rabies vaccine, for intramuscular injection RETIRED CODE 1 2007 [id number] 18 Sanofi Pasteur (PMC) complet ed rabies vaccine, for intramusc ular injection RETIRED CODE DoD influenza virus vaccine, live 2006 [id number] 111 2d2cune Inc comple t ed influenza virus vaccine, live 02/15/07 Given Ambulat ory Pharmac y influenza virus vaccine, live 2006 [id number] 111 2[employer]2cune Inc comple t ed influenza virus vaccine, live 02/15/07 Given Ambulat ory Pharmac y influenza virus vaccine, live, attenuated, for intranasal use 1 2006 [id number] 111 Postify, Inc. (MED) complet ed influenza virus vaccine, live, attenuate d, for intranasa l use DoD anthrax vaccine 2006 [id number] [employer] complet ed anthrax vaccine 07/23/06 Given Ambulat ory Pharmac y anthrax vaccine 2006 [id number] 24 [employer] complet ed anthrax vaccine 07/23/06 Given Ambulat ory Pharmac y anthrax vaccine 3 2006 [id number] 24 [employer] [place] (MIP) complet ed anthrax vaccine DoD vaccinia (smallpox) vaccine 0 2006 75 () Not Given vaccinia (smallpox ) vaccine DoD anthrax vaccine 2006 [id number] 24 Emergent [employer] complet ed anthrax vaccine 06/30/06 Given Ambulat ory Pharmac y anthrax vaccine 2 2006 [id number] 24 [employer] Diane (MIP) complet ed anthrax vaccine DoD anthrax vaccine 2006 [id number] 24 [employer] complet ed anthrax vaccine 04/29/06 Given Ambulat ory Pharmac y anthrax vaccine 2006 [id number] 24 [employer] complet ed anthrax vaccine 04/29/06 Given Ambulat ory Pharmac y anthrax vaccine 1 2006 [id number] 24 [employer]inae (MIP) complet ed anthrax vaccine DoD typhoid Vi capsular polysaccharid e vac 2006 [id number] 101 sanofi pasteur complet ed typhoid Vi capsular polysacch aride vac 03/13/06 Given Ambulat ory Pharmac y typhoid Vi capsular polysaccharid e vac 2006 [id number] 101 sanofi pasteur complet ed typhoid Vi capsular polysacch aride vac 03/13/06 Given Ambulat ory Pharmac y typhoid Vi capsular polysaccharid e vaccine 1 2006 [id number] 101 Sanofi Pasteur ([facility]) complet ed typhoid Vi capsular polysacch aride vaccine DoD influenza virus vaccine, live 2005 [id number] 111 2d2cune Inc comple t ed influenza virus vaccine, live 01/15/06 Given Ambulat ory Pharmac y influenza virus vaccine, live 2005 [id number] 111 Medimmune Inc comple t ed influenza virus vaccine, live 01/15/06 Given Ambulat ory Pharmac y influenza virus vaccine, live, attenuated, for intranasal use 1 2005 [id number] 111 Postify, Inc. (MED) complet ed influenza virus vaccine, live, attenuate d, for intranasa l use [facility] influenza virus vaccine,split 2004 [id number] 15 sanofi pasteur complet ed influenza virus vaccine,s plit 02/03/05 Given Ambulat ory Pharmac y influenza virus vaccine,split 2004 [id number] 15 sanofi pasteur complet ed influenza virus vaccine,s plit 02/03/05 Given Ambulat ory Pharmac y influenza virus vaccine, split virus (incl. purified surface antigen)-reti red CODE 1 2004 [id number] 15 Sanofi Pasteur ([facility]) complet ed influenza virus vaccine, split virus (incl. purified surface antigen)- retired CODE DoD influenza virus vaccine, live 2004 [id number] 111 Seakeeper Inc comple t ed influenza virus vaccine, live 04/02/04 Given Ambulat ory Pharmac y influenza virus vaccine, live 2004 [id number] 111 Seakeeper Inc comple t ed influenza virus vaccine, live 04/02/04 Given Ambulat ory Pharmac y influenza virus vaccine, live, attenuated, for intranasal use 0 2004 [id number] 111 Postify, [employer]. (MED) complet ed influenza virus vaccine, live, attenuate d, for intranasa l use DoD influenza virus vaccine, whole virus 2002 [id number] 16 Novartis Pharmaceutica ls complet ed influenza virus vaccine, whole virus 12/14/02 Given Ambulat ory Pharmac y influenza virus vaccine, whole virus 2002 [id number] 16 Novartis Pharmaceutica ls complet ed influenza virus vaccine, whole virus 12/14/02 Given Ambulat ory Pharmac y influenza virus vaccine, whole virus 0 2002 [id number] 16 [employer] ls (PWJ) complet ed influenza virus vaccine, whole virus DoD hepatitis A adult vaccine 2001 [id number] 52 Merck & Company Inc complet ed hepatitis A adult vaccine 01/31/02 Given Ambulat ory Pharmac y hepatitis A adult vaccine 2001 [id number] 52 Merck & Company Inc complet ed hepatitis A adult vaccine 01/31/02 Given Ambulat ory Pharmac y hepatitis A vaccine, adult dosage 2 2001 [id number] 52 Merck (MSD) complet ed hepatitis A vaccine, adult dosage DoD influenza virus vaccine, whole virus 2001 [id number] 16 Corp[employer] complet ed influenza virus vaccine, whole virus 01/07/02 Given Ambulat ory Pharmac y influenza virus vaccine, whole virus 2001 [id number] 16 [facility] complet ed influenza virus vaccine, whole virus 01/07/02 Given Ambulat ory Pharmac y influenza virus vaccine, whole virus 0 2001 [id number] 16 [facility] ([facility]) complet ed influenza virus vaccine, whole virus DoD influenza virus vaccine, whole virus 2000 [id number] 16 sanofi pasteur complet ed influenza virus vaccine, whole virus 02/12/01 Given Ambulat ory Pharmac y influenza virus vaccine, whole virus 2000 [id number] 16 sanofi pasteur complet ed influenza virus vaccine, whole virus 02/12/01 Given Ambulat ory Pharmac y influenza virus vaccine, whole virus 0 2000 [id number] 16 Sanofi Pasteur ([facility]) complet ed influenza virus vaccine, whole virus DoD tetanus-dipht h toxoids (Td) adult/adol 2000 [id number] 09 sanofi pasteur complet ed tetanus-d iphth toxoids (Td) adult/ado l 01/06/01 Given Ambulat ory Pharmac y tetanus-dipht h toxoids (Td) adult/adol 2000 [id number] 09 sanofi pasteur complet ed tetanus-d iphth toxoids (Td) adult/ado l 01/06/01 Given Ambulat ory Pharmac y tetanus and diphtheria toxoids, adsorbed, preservative free, for adult use (2 Lf of tetanus toxoid and 2 Lf of diphtheria toxoid) 0 2000 [id number] 09 Sanofi Pasteur ([facility]) complet ed tetanus and diphtheri a toxoids, adsorbed, preservat shana free, for adult use (2 Lf of tetanus toxoid and 2 Lf of diphtheri a toxoid) DoD hepatitis A adult vaccine 2000 [id number] 52 Merck & Company Inc complet ed hepatitis A adult vaccine 08/21/00 Given Ambulat ory Pharmac y hepatitis A adult vaccine 2000 [id number] 52 Merck & Company Inc complet ed hepatitis A adult vaccine 08/21/00 Given Ambulat ory Pharmac y hepatitis A vaccine, adult dosage 1 2000 [id number] 52 Merck (MSD) complet ed hepatitis A vaccine, adult dosage DoD measles, mumps and rubella virus vaccine 0 2000 03 () Not Given measles, mumps and rubella virus vaccine DoD varicella virus vaccine 1 2000 21 () Not Given varicella virus vaccine DoD tuberculin purified protein derivative 2000 [id number] 96 [facility] complet ed tuberculi n purified protein derivativ e 08/14/00 Given Ambulat ory Pharmac y meningococcal polysaccharid e (MPSV4) 2000 [id number] 32 [facility] complet ed meningoco ccal polysacch aride (MPSV4) 08/14/00 Given Ambulat ory Pharmac y poliovirus vaccine, inactivated 2000 [id number] 10 sanofi pasteur complet ed polioviru s vaccine, inactivat ed 08/14/00 Given Ambulat ory Pharmac y influenza virus vaccine, whole virus 2000 [id number] 16 [employer] complet ed influenza virus vaccine, whole virus 08/14/00 Given Ambulat ory Pharmac y influenza virus vaccine, whole virus 2000 [id number] 16 [employer] complet ed influenza virus vaccine, whole virus 08/14/00 Given Ambulat ory Pharmac y poliovirus vaccine, inactivated 2000 [id number] 10 sanofi pasteur complet ed polioviru s vaccine, inactivat ed 08/14/00 Given Ambulat ory Pharmac y meningococcal polysaccharid e (MPSV4) 2000 [id number] 32 [facility] complet ed meningoco ccal polysacch aride (MPSV4) 08/14/00 Given Ambulat ory Pharmac y poliovirus vaccine, inactivated 0 2000 [id number] 10 Sanofi Pasteur (PMC) complet ed polioviru s vaccine, inactivat ed DoD influenza virus vaccine, whole virus 0 2000 [id number] 16 [facility] ([facility]) complet ed influenza virus vaccine, whole virus DoD meningococcal polysaccharid e vaccine (MPSV4) 0 2000 [id number] 32 [place] (CON) complet ed meningoco ccal polysacch aride vaccine (MPSV4) [facility] Vital Signs Combined list of inpatient and outpatient Vital Signs from Department of Defense and Veterans Affairs, ranging from 12 months to all on record, depending upon the facility. Vital Sign Value Date Comments Source No data available for this section Ambulatory Pharm acy SYSTOLIC BLOOD PRESSURE 144 01/15/2024 15:22:04 [place] DIASTOLIC BLOOD PRESSURE 98 01/15/2024 15:22:04 [place] PULSE OXIMETRY 96 01/15/2024 15:22:04 [place] WEIGHT 233 01/15/2024 15:22:04 [place] BMI 34kg/m2 01/15/2024 15:22:04 [place] TEMPERATURE 97 01/15/2024 15:22:04 [place] PULSE 94 01/15/2024 15:22:04 [place] RESPIRATION 18 01/15/2024 15:22:04 [place] SYSTOLIC BLOOD PRESSURE 119 07/20/2023 14:23:33 [place] DIASTOLIC BLOOD PRESSURE 82 07/20/2023 14:23:33 [place] PULSE OXIMETRY 97 07/20/2023 14:23:33 [place] WEIGHT 227 07/20/2023 14:23:33 [place] BMI 34kg/m2 07/20/2023 14:23:33 [place] HEIGHT 69 07/20/2023 14:23:33 [place] TEMPERATURE 97.2 07/20/2023 14:23:33 [place] PULSE 80 07/20/2023 14:23:33 [place] RESPIRATION 20 07/20/2023 14:23:33 [place] Encounters Combined list of: 1) Encounters from Department of Veterans Affairs facilities going back up to thelast 18 months. 2) Encounters from the Department of Defense facilities going back up to 280 months. Location Location Details Encounter Type Encounter Number Reason For Visit Attending Provider ADM Date DC Date Status Disposition Source Medical Group [employer], MARÍA ([facility]) OUTPATIENT [id number] RAOUL Houser 09/15 Sick at Home/Quarter s [facility] [employer] ([facility])([facility] Medicin e [facility]) [employer]au[employer] ([facility])([facility] Medicine [facility]) OUTPATIENT [id number] f/u DELMER Dugan 10/03 Released with Work/Duty Limitations [employer], [place] ([facility])( light Medicin e [facility]) [employer] [place] [employer]) OUTPATIENT [id number] rtfs CLAUS DELMER Galdamez 10/06 Released w/o Limitations [employer])(F light Medicin e Clinic) [employer]) OUTPATIENT [id number] foot CLAUSDELMER 11/10 Released w/o Limitations [employer] Medic[facility] Clinic) [employer]) OUTPATIENT [id number] pha CLAUSDELMER 11/13 Released w/o Limitations [employer] Medic[facility]) [employer]) OUTPATIENT [id number] rtfs TYEGREGG JOSE Jennifer 11/18 Released w/o Limitations [employer]) [employer]) OUTPATIENT [id number] RTFS GREGG GARCES Jennifer 11/25 Released w/o Limitations [employer] Medic[facility] Clinic) [employer]) OUTPATIENT [id number] rtfs followi ng er visit DELMER DEVLIN Denice 12/29 Released with Work/Duty Limitations [employer] Medic[facility]) [employer]) OUTPATIENT [id number] RTFS neck pain CLAUS DELMER Galdamez 01/02 Released w/o Limitations [employer] Medic[facility] Clinic) [employer]) OUTPATIENT [id number] numbnes s in fingers HEBERTLINDSAYDELMER 01/05 Released w/o Limitations [employer]) [employer] Medicine [facility]) OUTPATIENT [id number] seen [place],rtfs ARELI MARKHAM 01/27 Released w/o Limitations [employer] Medic[facility] e Clinic) [employer])(FPS ) OUTPATIENT [id number] flu mist WEEKS CASEY B. 02/03 Released w/o Limitations [employer])(F PS) [employer])([facility] Medicine [facility]) OUTPATIENT [id number] twisted back on ice ARELI MARKHAM 02/05 Released with Work/Duty Limitations [employer] light Medic[facility] e Clinic) [employer] Medicine [facility]) OUTPATIENT [id number] RTFS GREGG GARCES 02/12 Released w/o Limitations [employer] Medic[facility] e Clinic) [employer]FPS ) OUTPATIENT [id number] typhoid WEEKS CASEY B. 03/13 Released w/o Limitations [employer])(F PS) [employer] Medicine [facility]) OUTPATIENT [id number] sick for three weeks ARELI MARKHAM 03/20 Released with Work/Duty Limitations [employer] Medic[facility] Clinic) [employer] Medicine [facility]) OUTPATIENT [id number] sick call JUAN OBRIEN 04/29 Released w/o Limitations [employer] light Medic[facility] e Clinic) [employer]) OUTPATIENT [id number] fly JUAN Park 11/05 Released w/o Limitations [employer] Medic[facility] Clinic) [employer]) OUTPATIENT [id number] arnie gonzalez for seng DELMER DEVLIN Denice 02/09 Released w/o Limitations [employer] Medic[facility] Clinic) [employer]) OUTPATIENT [id number] RTFS JUAN OBRIEN 03/05 Released w/o Limitations [employer] Medic[facility] Clinic) [employer]) TELE CONSULT [id number] CASEY MARTINEZ 03/15 [employer]) [employer]([facility]) OUTPATIENT [id number] inproce LATA Garrison 05/09 Released w/o Limitations [employer]( light Med [facility]) [employer]([facility]) OUTPATIENT [id number] SERE 7 Level Record review SAMI DURHAM 06/09 Released w/o Limitations [employer]([facility] Med [facility]) [employer]([facility]) OUTPATIENT [id number] Had MRI and was told he needs to see special ist SAMI UDRHAM 08/16 Released w/o Limitations [employer]([facility] Med [facility]) [employer]([facility]) TELE CONSULT [id number] no showed appt CANDICE GUTIERREZ 08/18 [employer]([facility]) [employer]([facility]) TELE CONSULT [id number] New Pt Intake BRYCE CLAROS 08/22 [employer]([facility]) [employer]([facility]) OUTPATIENT [id number] Psychol ogical Assessm ent CANDICE GUTIERREZ 08/30 Released w/o Limitations [employer]([facility]) [employer]([facility]) OUTPATIENT [id number] maria g giraldo F/U for psych testing . CANDICE GUTIERREZ 09/07 Released w/o Limitations [employer]([facility]) [employer]([facility]) TELE CONSULT [id number] referra l for MRI ALVERTO JACKSON 09/21 [employer]([facility]) [employer]([facility]) OUTPATIENT [id number] V/D, abd. pain x 2 days. Pain 6 KAYE ALCANTAR 10/11 Released w/o Limitations [employer]([facility]) [employer]([facility]) DENTAL [id number] exam BUTCH ROCK 10/12 Released w/o Limitations [employer]([facility]) [employer]([facility]) DENTAL [id number] pro BERNADINE CISNEROS 10/12 Released w/o Limitations [employer]([facility]) [employer]([facility]) TELE CONSULT [id number] needing referra l for Pain Mgmt per neurosu SAV Hair 10/20 [employer]([facility]) [employer]([facility]) OUTPATIENT [id number] FU From Neuro JAMEEL AMANDA 11/09 Released w/o Limitations [employer]([facility]) [employer]([facility]) OUTPATIENT [id number] 32y/o tayo montiel RYAN NATHANIEL 11/23 Released w/o Limitations [employer]([facility]) [employer](Opt ometry) OUTPATIENT [id number] iop RITESH NARAYAN 11/24 Released w/o Limitations [employer](O ptometr y) [employer]([facility]) TELE CONSULT [id number] RTN from ground testing ZEESHAN PITTMAN 12/08 [employer]([facility]) [employer]([facility]) OUTPATIENT [id number] sore thoat, head congest ion x1 day KAYE ALCANTAR R 01/19 Released w/o Limitations [employer]([facility]) [employer]([facility]) OUTPATIENT [id number] STOKES, BODY ACHE, SINUS PRESSUR E, AND RUNNY NOSE CHRISTIANNETO Jeffrey T 01/25 Released with Work/Duty Limitations [employer]([facility]) [employer]([facility]) OUTPATIENT [id number] RTFS/52 2d OSS KAYE ALCANTAR R 02/07 Released w/o Limitations [employer]([facility]) [employer]([facility]) OUTPATIENT [id number] (L) BIG TOE PAIN KYLEIGH CALHOUN 04/05 Released w/o Limitations [employer]([facility]) [employer]([facility]) TELE CONSULT [id number] LELAND REGAN 04/06 [employer]([facility]) [employer]([facility]) OUTPATIENT [id number] deploy questio ns.LBP, shoulde r pain and genetic allergy testing . KYLEIGH CALHOUN 07/13 Released w/o Limitations [employer]([facility]) [employer]([facility]) TELE CONSULT [id number] CALCIFI ED AXILLAR Y NODES KYLEIGH CALHOUN 07/14 [employer]([facility]) [employer]([facility]) TELE CONSULT [id number] malaria meds. 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 ALVERTO JACKSON 11/30 Released w/o Limitations [employer]([facility]) [employer](Phy sical Therapy) OUTPATIENT [id number] r shldr pain MASK, SHERRIE J 12/20 Released w/o Limitations [employer](P hysical Therapy ) [employer](Opt ometry) OUTPATIENT [id number] ROSEMARIE YARBROUGH A 12/21 Released w/o Limitations [employer](O ptometr y) [employer](Phy sical Therapy) OUTPATIENT [id number] MELANIA REAVES A 12/22 Released w/o Limitations [employer](P hysical Therapy ) [employer](Phy sical Therapy) OUTPATIENT [id number] MOLINA JOLLY 12/25 Released w/o Limitations [employer](P hysical Therapy ) [employer]([facility]hy sical Therapy) OUTPATIENT [id number] MOLINA JOLLY 12/27 Released w/o Limitations [employer](P hysical Therapy ) [employer](Phy sical Therapy) OUTPATIENT [id number] lbp MASK, MARTHAMARCO Jones 12/28 Released w/o Limitations [employer](P hysical Therapy ) [employer](Phy sical Therapy) OUTPATIENT [id number] MOLINA JOLLY 01/11 Released w/o Limitations [employer](P hysical Therapy ) [employer](Phy sical Therapy) OUTPATIENT [id number] SINAN ANTUNEZ 01/16 Released w/o Limitations [employer](P hysical Therapy ) [employer](Phy sical Therapy) OUTPATIENT [id number] SINAN ANTUNEZ 01/18 Released w/o Limitations [employer](P hysical Therapy ) [employer](Phy sical Therapy) OUTPATIENT [id number] lbp f/u MASK, SHERRIE J 01/19 Released w/o Limitations [employer](P hysical Therapy ) [employer](Phy sical Therapy) OUTPATIENT [id number] STEPHANIE WARREN 02/02 Released w/o Limitations [employer](P hysical Therapy ) [employer](Phy sical Therapy) OUTPATIENT [id number] STEPHANIE WARREN F 02/05 Released w/o Limitations [employer](P hysical Therapy ) [employer](Phy sical Therapy) OUTPATIENT [id number] r shldr f/u SHERRIE TINAJERO 02/07 Released w/o Limitations [employer](P hysical Therapy ) [employer](Phy sical Therapy) OUTPATIENT [id number] ZAC BRIGHT 02/13 Released w/o Limitations [employer](P hysical Therapy ) [employer]([facility]) OUTPATIENT [id number] R/O celiac disease . son recentl y dx. ROSETTE ESCOBAR V 07/19 Released w/o Limitations [employer]([facility]) [employer] OUTPATIENT [id number] JANA Dyer 08/07 Released w/o Limitations [employer]([facility]) [employer]) TELE CONSULT [id number] Results from [place] azul gist Dr. Zeeshan Bergeron. 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 NETO CHRISTIAN T 11/28 Released with Work/Duty Limitations [employer]([facility]) [employer](Opt ometry) OUTPATIENT [id number] pha iop NARAYANRITESH L 11/28 Released w/o Limitations [employer](O ptometr y) [employer] OUTPATIENT [id number] Ground testing meds NETO CHRISTIAN T 01/03 Released with Work/Duty Limitations [employer]([facility]) [employer] OUTPATIENT [id number] Ground testing MARIAMA VASQUEZ 01/07 Released w/o Limitations [employer]([facility]) [employer] OUTPATIENT [id number] f/u back pain PRIM, LIBBY G 10/21 Released w/o Limitations [employer]([facility]) [employer]([facility] OUTPATIENT [id number] BUTCH ORDAZ 10/28 Released w/o Limitations [employer](C hiropra ctic Clinic) [employer]([facility]) OUTPATIENT [id number] JO-ANN CISNEROSCaraBUTCH 11/05 Released with Work/Duty Limitations [employer](C hiropra ctic Clinic) [employer](Ped iatrics) TELE CONSULT [id number] JESUS ALBERTO Donohue 11/06 [employer](P ediatri cs) [employer] OUTPATIENT [id number] JO-ANN CISNEROSCaraBUTCH Judith 11/07 Released with Work/Duty Limitations [employer]([facility]ra [facility]tic Clinic) [employer] OUTPATIENT [id number] JO-ANN BLAYNECaraBUTCH Judith 11/18 Released w/o Limitations [employer](C hiropra ctic Clinic) [employer](Pai ght Med [facility]) OUTPATIENT [id number] 34 FLYER/D MARIAMA CASTILLO 11/19 Released with Work/Duty Limitations [employer]([facility]) [employer](Pai ght Med [facility]) OUTPATIENT [id number] 552 OSS/ RTFS WOLF DASH 11/26 Released w/o Limitations [employer]([facility]) [employer] OUTPATIENT [id number] JO-ANN BLAYNECaraBUTCH Judith 11/28 Released w/o Limitations [employer](C hiropra ctic Clinic) [employer] OUTPATIENT [id number] JO-ANN BLAYNECaraBUTCH Judith 12/04 Released w/o Limitations [employer](C hiropra ctic Clinic) [employer] OUTPATIENT [id number] JO-ANN BLAYNECaraBUTCH Judith 12/10 Released w/o Limitations [employer](C hiropra ctic Clinic) [employer]([facility]) OUTPATIENT [id number] f/u per WOLF Lara 12/18 Released w/o Limitations [employer]([facility]) [employer] OUTPATIENT [id number] R knee pain JAMESON FRASER Jennifer 01/06 Released w/o Limitations [employer]([facility]) [employer] OUTPATIENT [id number] DNIF PHILLIP CHEVY L 01/29 Released w/o Limitations [employer]([facility]) [employer] TELE CONSULT [id number] NETWORK RESULT- ORTHO-1 BESSIE CASTAÑEDA 01/29 [employer]( [facility]) [employer]([facility]) OUTPATIENT [id number] BUTCH BETH 02/03 Released w/o Limitations [employer]([facility]) [employer]([facility]) OUTPATIENT [id number] F/U MRI BESSIE CASTAÑEDA 02/05 Released with Work/Duty Limitations [employer]( [facility]) [employer]([facility]) OUTPATIENT [id number] BUTCH BETH 02/14 Released w/o Limitations [employer]([facility]) [employer]) OUTPATIENT [id number] jesusin g under tongue GREGORIO PIRES 03/19 Released w/o Limitations [employer]([facility]) [employer] OUTPATIENT [id number] f/u from last visit BESSIE CASTAÑEDA 04/02 Released with Work/Duty Limitations [employer]( [facility]) [employer]([facility]) TELE CONSULT [id number] Notes Entered by: MICHAELLE JORGE 10 Apr 2011 0723 ------- ------- ------- ------- -- Radiolo gy results CHETNA CHUNG 04/10 [employer]([facility]) [employer]([facility]) OUTPATIENT [id number] Notes Entered by: EKTA BUTLER 23 Apr 2011 0713 ------- ------- ------- ------- -- acid reflux/ heartbu JAMESON Marte 04/23 Released w/o Limitations [employer]( [facility]) [employer]([facility]) TELE CONSULT [id number] Notes Entered by: ARNOLDO ROYAL 02 May 2011 0819 ------- ------- ------- ------- -- Network result- pain [facility]- JAMESON FRASER 05/01 [employer]([facility]) [employer]([facility]) TELE CONSULT [id number] Notes Entered by: JAMESON FRASER 21 May 2011 1445 ------- ------- ------- ------- -- JAMESON Rivera 05/20 [employer]( [facility]) [employer]([facility]) TELE CONSULT [id number] Notes Entered by: BLOSSOM ROBERTSON 22 May 2011 1359 ------- ------- ------- ------- -- EDNIF x 30 days JAMESON FRASER 05/21 [employer]([facility]) [employer](Opt ometry) OUTPATIENT [id number] rafa - RITESH Cedillo 06/02 Released w/o Limitations [employer](O ptometr y) [employer]([facility]) OUTPATIENT [id number] f/u from off base visit ATM GUILLEN 06/15 Released with Work/Duty Limitations [employer]([facility]) [employer]([facility]) TELE CONSULT [id number] Notes Entered by: POLA SOLIS 15 Jul 2011 1307 ------- ------- ------- ------- -- Network Results - PT 04/13 JAMESON FRASER 07/14 [employer]([facility]) [employer]([facility]) OUTPATIENT [id number] f/u off base TAM Seymour 07/29 Released with Work/Duty Limitations [employer]([facility]) [employer]([facility]) TELE CONSULT [id number] Notes Entered by: WICHO THOMAS 21 Aug 2011 1054 ------- ------- ------- ------- -- 469/[place] JAMESON STAFFORD 08/20 [employer]([facility]) [employer]([facility]) TELE CONSULT [id number] Notes Entered by: PHILOMENA SNIDER 08 Sep 2011 0919 ------- ------- ------- ------- -- 469 update JAMESON FRASER 09/07 [employer]([facility]) [employer]([facility]) OUTPATIENT [id number] Notes Entered by: Cara BAKER 01 Oct 2011 1040 ------- ------- ------- ------- -- RTFS JAMESON FRASER 09/30 Released w/o Limitations [employer]([facility]) [employer]([facility]) TELE CONSULT [id number] Notes Entered by: POLA SOLIS 13 Oct 2011 1434 ------- ------- ------- ------- -- Network Results - PT 10/11 JAMESON FRASER 10/12 [employer]([facility]) [employer]([facility]) OUTPATIENT [id number] Notes Entered by: ARIELLA ZAMARRIPA 22 Oct 2011 0728 ------- ------- ------- ------- -- rtfs... bite by JOSE Martines 10/21 Released w/o Limitations [employer]([facility]) [employer]([facility]) TELE CONSULT [id number] Notes Entered by: ETELVINA PEÑA 19 Nov 2011 1055 ------- ------- ------- ------- -- Off base note CHEVY FISHER 11/18 [employer]( [facility]) [employer]([facility]) TELE CONSULT [id number] Notes Entered by: ARISTIDES ABRAMS 28 Nov 2011 0830 ------- ------- ------- ------- -- Network Results - Sonya 11/11 JAMESON FRASER 11/27 [employer]([facility]) [employer]([facility]) OUTPATIENT [id number] Notes Entered by: WICHO THOMAS 05 Dec 2011 0926 ------- ------- ------- ------- -- f/u JOSE Zimmerman 12/04 Released w/o Limitations [employer]( [facility]) [employer]([facility]) OUTPATIENT [id number] Notes Entered by: Cara BAKER 15 Dec 2011 0733 ------- ------- ------- ------- -- sore throat, body aches KEITH GIBSON 12/14 Released w/o Limitations [employer]([facility]) [employer]([facility]) OUTPATIENT [id number] pt needs new referra l for ortho surg DARCY HE 01/26 Released with Work/Duty Limitations [employer]([facility]) [employer]([facility]) OUTPATIENT [id number] 36 yo/ web stokes/ WOLF DASH 02/01 Released w/o Limitations [employer]([facility]) [employer] isemi Managemen t) TELE CONSULT [id number] Notes Entered by: EKTA DOSS 05 Feb 2012 0649 ------- ------- ------- ------- -- New referra l for pain managem ent EKTA SAHNI 02/04 Referred for Appointment [employer](Z ZDiseas e Managem ent) [employer]([facility]) OUTPATIENT [id number] Notes Entered by: ARIELLA ZAMARRIPA 11 Mar 2012 0930 ------- ------- ------- ------- -- f/u off base LUCY ADAIR 03/11 Released w/o Limitations [employer]([facility]) [employer]([facility]) TELE CONSULT [id number] Notes Entered by: POLA SOLIS 10 Jun 2012 0851 ------- ------- ------- ------- -- Network Results - Ortho 02/10 LOW PIERCE 06/10 [employer]([facility]) [employer]([facility]) OUTPATIENT [id number] Notes Entered by: Cara BAKER 21 Jun 2012 0702 ------- ------- ------- ------- -- fever, cough, body aches, headach e, light sensiti vity LOW PIERCE 06/21 Sick at Home/Quarter s [employer]([facility]) [employer]([facility]) TELE CONSULT [id number] Notes Entered by: BESSIE BARNES 22 Jun 2012 1210 ------- ------- ------- ------- -- Network results - pain mgmt 03/14 LOW PIERCE 06/22 [employer]([facility]) [employer]([facility]) TELE CONSULT [id number] Notes Entered by: ARIELLA ZAMARRIPA 13 Jul 2012 1315 ------- ------- ------- ------- -- 552 oss.... con leave DARCY HE 07/13 [employer]([facility]) [employer]([facility]) OUTPATIENT [id number] Notes Entered by: Cara BAKER 09 Aug 2012 0658 ------- ------- ------- ------- -- infecti on at surgery site LIBBY CARRERO 08/09 Released w/o Limitations [employer]( [facility]) [employer]([facility]) OUTPATIENT [id number] Notes Entered by: Cara BAKER 13 Aug 2012 0913 ------- ------- ------- ------- -- f/u off baserick ed, CRAIG A 08/13 Released w/o Limitations [employer]([facility]) [employer] OUTPATIENT [id number] Notes Entered by: BLOSSOM ROBERTSON 01 Sep 2012 0941 ------- ------- ------- ------- -- f/u offbase DARCY HE 09/01 Released with Work/Duty Limitations [employer]([facility]) [employer] OUTPATIENT [id number] Notes Entered by: NANCI PIERCE 16 Sep 2012 1314 ------- ------- ------- ------- -- discuss medicat ions LOW PIERCE 09/16 Released with Work/Duty Limitations [employer]([facility]) [employer]([facility]) OUTPATIENT [id number] Notes Entered by: ARIELLA ZAMARRIPA 25 Oct 2012 1335 ------- ------- ------- ------- -- fu off base DARCY HE 10/25 Released with Work/Duty Limitations [employer]([facility]) [employer](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 ring Conservat ion) OUTPATIENT [id number] 197B Z1 BI US 11/08 Released w/o Limitations [employer](H earing Conserv ation) [employer]([facility] Clinic) OUTPATIENT [id number] Notes Entered by: ARIELLA ZAMARRIPA 10 Nov 2012 1006 ------- ------- ------- ------- -- fu off base JMAESON FRASER 11/10 Released w/o Limitations [employer]([facility]) [employer]([facility]) OUTPATIENT [id number] Notes Entered by: PRABHJOT SCHAEFER 01 Dec 2012 1408 ------- ------- ------- ------- -- off base f/DARCY Aguilar 12/01 Released with Work/Duty Limitations [employer]([facility]) [employer]([facility]) OUTPATIENT [id number] Notes Entered by: PRABHJOT SCHAEFER 20 Dec 2012 0853 ------- ------- ------- ------- -- off base f/u COREY CASTILLO 12/20 Released with Work/Duty Limitations [employer]([facility]) [employer]([facility]) TELE CONSULT [id number] Notes Entered by: POLA SOLIS 19 Jan 2013 1137 ------- ------- ------- ------- -- Network Results - [facility] 10/12 JAMESON FRASER 01/19 [employer]( [facility]) [employer]([facility]) TELE CONSULT [id number] Notes Entered by: APOLINAR CHUNG 08 Feb 2013 0847 ------- ------- ------- ------- -- Orthope dic Referra l CHETNA CHUNG 02/08 [employer]( [facility]) [employer]([facility] Surgeon Office) OUTPATIENT [id number] PHA SCOUT GALINDO 03/24 Released w/o Limitations [employer]( light Surgeon Office) [employer]([facility] Surgeon Office) TELE CONSULT [id number] Notes Entered by: Willow NIEVES 27 Apr 2013 1414 ------- ------- ------- ------- -- In-Proc LAYLA Machado 04/27 Referred for Appointment [employer](F light Surgeon Office) [employer](Pai t Surgeon Office) OUTPATIENT [id number] F/U STEPHEN LARRY 07/05 Released w/o Limitations [employer]( light Surgeon Office) [employer] OUTPATIENT [id number] f/u LBP/Hug [facility] BENTON SWIFT 09/08 Released w/o Limitations [employer](F light Surgeon Office) [employer] TELE CONSULT [id number] Notes Entered by: JOVANNA LOPEZ 04 Oct 2013 1352 ------- ------- ------- ------- -- Needs Referal LAYLA NIEVES 10/04 Referred for Appointment [employer]([facility] light Surgeon Office) [employer](Pai t Surgeon Office) OUTPATIENT [id number] F/U Pain managem ELSY Painter 01/11 Released w/o Limitations [employer]([facility] light Surgeon Office) [employer] TELE CONSULT [id number] Notes Entered by: Esau PERALTA 17 Jan 2014 0909 ------- ------- ------- ------- -- Med request LEANN LAZO 01/17 [employer]( light Surgeon Office) [employer]([facility] Surgeon [facility]) OUTPATIENT [id number] BENTON HOWELL 03/30 Released w/o Limitations [employer]( light Surgeon Office) [employer]([facility] Surgeon [facility]) TELE CONSULT [id number] Notes Entered by: Jennifer LÓPEZ 31 Mar 2014 1101 ------- ------- ------- ------- -- NETWORK RESULTS -ORTHOP EDIC SURGERY 014 & 09/02/19 14 YELITZA RICE 03/31 [employer]( light Surgeon Office) [employer]([facility] Surgeon Office) OUTPATIENT [id number] f/u back pain ELSY GILLIAM 04/07 Released w/o Limitations [employer]( light Surgeon Office) [employer]([facility] Surgeon [facility]) OUTPATIENT [id number] [facility] [place] Bradley 04/24 Released w/o Limitations [employer]( light Surgeon Office) [employer]([facility] Surgeon Office) TELE CONSULT [id number] Notes Entered by: CHRISTY MARI 02 May 2014 1304 ------- ------- ------- ------- -- Network Result- Pain Mgmt LBP 09/28/13 -04/05/14 STEPHEN GARCIA 05/02 [employer]( light Surgeon Office) [employer]([facility] Surgeon [facility]) OUTPATIENT [id number] RTF ELSY GILLIAM 05/15 Released w/o Limitations [employer]( light Surgeon Office) [employer](Dep loyment Health 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 ts) OUTPATIENT [id number] WADE HARPER 06/13 Released w/o Limitations [employer](D eployme Health Assessm ents) [employer]([facility] Surgeon [facility]) OUTPATIENT [id number] predepl oELSY Sanches 06/13 Released w/o Limitations [employer](F light Surgeon Office) [employer]([facility]) OUTPATIENT [id number] KAYLIN XAVISHAHAB Suze 06/14 Released w/o Limitations [employer](M ental [facility]) [place](Urolog y) OUTPATIENT [id number] DYSPARE UNIA S/P GENOVEVA GAXIOLA 06/21 Released w/o Limitations [place](Urol ogy) [employer]([facility]) OUTPATIENT [id number] Notes Entered by: FREDO BROWNING 27 Jun 2014 1410 ------- ------- ------- ------- -- 38 RQS low back and R shoulde r coltal FREDO GARCIA 06/27 Released w/o Limitations [employer] [facility](P hysical Therapy Clinic) [facility] OUTPATIENT [id number] 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 Released w/o Limitations Theater [facility] [employer]([facility] Surgeon Office) OUTPATIENT [id number] post depl referra [place] Junior 12/18 Released with Work/Duty Limitations [employer] [facility](F light Surgeon Office) [employer]([facility]) OUTPATIENT [id number] Notes Entered by: FREDO BROWNING 21 Dec 2014 1050 ------- ------- ------- ------- -- 38RQS B shoulde r f/u, low back f/u and cervica l FREDO Gramajo 12/21 Released w/o Limitations [employer]) [employer]([facility]) OUTPATIENT [id number] Notes Entered by: FREDO BROWNING 26 Dec 2014 1434 ------- ------- ------- ------- -- 38RQS low back rehab FREDO GARCIA 12/26 Released w/o Limitations [employer]([facility]) [employer]([facility]) OUTPATIENT [id number] Notes Entered by: FREDO BROWNING 27 Dec 2014 1109 ------- ------- ------- ------- -- 38RQG cervica l and low back rehab FREDO GARCIA 12/27 Released w/o Limitations [employer]([facility]) [employer]([facility] Surgeon Office) TELE CONSULT [id number] Notes Entered by: Jennifer LPÓEZ 02 Jan 2015 1524 ------- ------- ------- ------- -- NETWORK RESULTS -XR ARTHROG RAINE CORI Gaston RT 015 VIRGILIO GORDILLO 01/02 [facility] Group([facility] Surgeon Office) [employer]([facility]) OUTPATIENT [id number] Notes Entered by: FREDO BROWNING 04 Jan 2015 1036 ------- ------- ------- ------- -- 38RQS lumbar rehab FREDO GARCIA 01/04 Released w/o Limitations [employer]([facility]) [employer]([facility]) OUTPATIENT [id number] Notes Entered by: FREDO BROWNING 12 Jan 2015 1116 ------- ------- ------- ------- -- 38RQS low back rehab FREDO GARCIA 01/12 Released w/o Limitations [employer]([facility]) [employer]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 [id number] Pain in right shoulde jona WOLF ADAMS 01/19 Released w/o Limitations [employer](O rthoped ic Clinic [employer]ING [employer] 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) [employer]([facility]) OUTPATIENT [id number] Notes Entered by: FREDO BROWNING 22 Jan 2015 1240 ------- ------- ------- ------- -- low back rehab FREDO GARCIA 01/22 Released w/o Limitations [employer]) [facility] [employer]([facility] Surgeon Office) TELE CONSULT [id number] Notes Entered by: MARTI HERNANDEZ 02 Feb 2015 1347 ------- ------- ------- ------- -- Labs for medical course MARTI JACOB 02/02 [employer]( light Surgeon Office) [facility] [employer]([facility]ical Therapy [facility]) OUTPATIENT [id number] Notes Entered by: FREDO BROWNING 05 Feb 2015 0950 ------- ------- ------- ------- -- low back rehab FREDO GARCIA 02/05 Released w/o Limitations [employer](P hysical Therapy [facility]) [facility] [employer]([facility] Surgeon Office) TELE CONSULT [id number] Notes Entered by: MARTI HERNANDEZ 11 Feb 2015 0818 ------- ------- ------- ------- -- labs MARTI JACOB 02/11 [facility]( light Surgeon Office) [facility] [employer]([facility] Surgeon Office) TELE CONSULT [id number] Notes Entered by: MARTI HERNANDEZ 02 Mar 2015 1151 ------- ------- ------- ------- -- Lab tests MARTI JACOB 01/01 /2016 [employer](F light Surgeon Office) [employer]([facility]) OUTPATIENT [id number] face to face pcs BIENVENIDO Conde 03/15 Released w/o Limitations [employer]([facility]) [employer](Phy sical Therapy Clinic) OUTPATIENT [id number] Notes Entered by: FREDO BROWNING 29 Mar 2015 1330 ------- ------- ------- ------- -- low back f/u FREDO GARCIA 03/29 Released w/o Limitations [employer]([facility]ysical Therapy [facility]) [employer](Phy sical Therapy Clinic) OUTPATIENT [id number] Notes Entered by: FREDO BROWNING 04 Apr 2015 1258 ------- ------- ------- ------- -- Upper R back eval FREDO GARCIA 04/04 Released w/o Limitations [employer]([facility] Therapy [facility]) [employer](Dep [facility] ts) OUTPATIENT [id number] WADE PISANO 04/12 Released w/o Limitations [employer](D eployme Health Assessm ents) [employer]([facility]) OUTPATIENT [id number] NAKIA CAVAZOS 04/17 Released w/o Limitations [employer](B [facility]se Operati ons [facility]) [employer]([facility]) OUTPATIENT [id number] BIENVENIDO DUBON 04/17 Released w/o Limitations [employer]([facility] [employer]) [employer](Phy sical Therapy Clinic) OUTPATIENT [id number] Notes Entered by: FREDO BROWNING 18 Apr 2015 1300 ------- ------- ------- ------- -- 38RQS low back rehab FREDO GARCIA 04/18 Released w/o Limitations [employer]([facility] Therapy [facility]) [employer](y sical Therapy Clinic) OUTPATIENT [id number] Notes Entered by: FREDO BROWNING 20 Apr 2015 1443 ------- ------- ------- ------- -- 38RQS pool conditi oning FREDO GARCIA 04/20 Released w/o Limitations [employer]([facility] Therapy [facility]) [employer]([facility]) OUTPATIENT [id number] Notes Entered by: FREDO BROWNING 01 May 2015 1330 ------- ------- ------- ------- -- 38th low back rehab FREDO GARCIA 04/30 Released w/o Limitations [employer] [facility]) [employer]([facility]) OUTPATIENT [id number] Notes Entered by: FREDO BROWNING 23 May 2015 1338 ------- ------- ------- ------- -- 38RQS low back rehab FREDO GARCIA 05/22 Released w/o Limitations [employer] [facility]) [employer]([facility]) OUTPATIENT [id number] Notes Entered by: FREDO BROWNING 25 May 2015 1531 ------- ------- ------- ------- -- 38RQS low back rehab FREDO GARCIA 05/24 Released w/o Limitations [employer] [facility]) [employer]([facility]) OUTPATIENT [id number] Notes Entered by: FREDO BROWNING 29 May 2015 1354 ------- ------- ------- ------- -- 38RQS low back rehab FREDO GARCIA 05/28 Released w/o Limitations [employer]([facility] Therapy [facility]) [employer]([facility]) OUTPATIENT [id number] Notes Entered by: FREDO BROWNING 30 May 2015 1328 ------- ------- ------- ------- -- 38RQS low back rehab FREDO GARCIA 05/29 Released w/o Limitations [employer]([facility] Therapy [facility]) [employer]([facility] Ln-Cln) OUTPATIENT [id number] Notes Entered by: FREDO BROWNING 05 Jun 2015 1329 ------- ------- ------- ------- -- 38RQS low back rehab FREDO GARCIA 06/04 Released w/o Limitations [employer]([facility]) [employer]([facility] Ln-Cln) OUTPATIENT [id number] Notes Entered by: FREDO BROWNING 12 Jun 2015 1415 ------- ------- ------- ------- -- 38RQS low back rehab FREDO GARCIA 06/11 Released w/o Limitations [employer]([facility] Ln-Cln) [employer]([facility] Ln-Cln) OUTPATIENT [id number] Notes Entered by: FREDO BROWNING 13 Jun 2015 1434 ------- ------- ------- ------- -- 38RQS low back rehab FREDO GARCIA 06/12 Released w/o Limitations [employer]([facility] Ln-Cln) [employer]([facility] Ln-Cln) OUTPATIENT [id number] Notes Entered by: FREDO BROWNING 15 Jun 2015 1653 ------- ------- ------- ------- -- 38RQS low back rehab FREDO GARCIA 06/14 Released w/o Limitations [employer](Z Z [facility] Ln-Cln) [employer](Z MIL Ln-Cln) OUTPATIENT [id number] Notes Entered by: FREDO BROWNING 19 Jun 2015 1429 ------- ------- ------- ------- -- LBP FREDO GARCIA 06/18 Released w/o Limitations [employer](Z Z MIL Ln-Cln) [employer]([facility] Ln-Cl[facility]) OUTPATIENT [id number] Notes Entered by: FREDO BROWNING 21 Jun 2015 1106 ------- ------- ------- ------- -- 38RQS lwo back rehab FREDO GARCIA 06/20 Released w/o Limitations [employer](Z Z MIL Ln-Cln) [employer](Hea ring Conservat ion) OUTPATIENT [id number] Notes Entered by: EBONIE SAENZ 22 Jun 2015 1448 ------- ------- ------- ------- -- EKTA QUIROGA 06/21 Released w/o Limitations [employer](H earing Conserv ation) [employer]( MILW Ln-Cln) OUTPATIENT [id number] Notes Entered by: FREDO BROWNING 25 Jun 2015 1411 ------- ------- ------- ------- -- LBP FREDO GARCIA 06/24 Released w/o Limitations [employer](Z Z [facility] Ln-Cln) [employer]([facility] Surgeon Office) OUTPATIENT [id number] YELITZA RICE 07/19 Released with Work/Duty Limitations [employer](F light Surgeon Office) [employer]([facility] Surgeon Office) TELE CONSULT [id number] Notes Entered by: Willow NIEVES 20 Jul 2015 1127 ------- ------- ------- ------- -- [facility] 07/17/15 [place] YELITZA RICE 07/19 [employer](F light Surgeon Office) [facility] [employer]([facility] Surgeon Office) TELE CONSULT [id number] Notes Entered by: YELITZA RICE 20 Jul 2015 1304 ------- ------- ------- ------- -- Lab results YELITZA RICE 07/19 [employer](F light Surgeon Office) [facility] [employer]([facility] Surgeon Office) TELE CONSULT [id number] Notes Entered by: Willow NIEVES 25 Jul 2015 1339 ------- ------- ------- ------- -- Needs Referra l for ENT appt [facility] STEPHEN GARCIA 07/24 [employer](F light Surgeon Office) [facility] [employer]([facility] Surgeon Office) OUTPATIENT [id number] Notes Entered by: JO BERMUDEZ 31 Jul 2015 1403 ------- ------- ------- ------- -- F/U Off base prov visit MARTI JACOB 07/30 Released w/o Limitations [employer](F light Surgeon Office) [facility] [employer]([facility] Surgeon Office) TELE CONSULT [id number] Notes Entered by: Jennifer LÓPEZ 02 Aug 2015 0944 ------- ------- ------- ------- -- NETWORK RESULTS -OTORHI ALEXSANDRA LLAMAS 016 KWAN WHEAT 08/01 [employer] [facility](F light Surgeon Office) [facility] [employer](ZZ MILW Ln-Cln) OUTPATIENT [id number] Notes Entered by: MARCOS NAYLOR 24 Sep 2015 1203 ------- ------- ------- ------- -- Back pain VIN DAVSI 09/23 Released w/o Limitations [employer](Z Z AGOW Ln-Cln) [employer]([facility]) OUTPATIENT [id number] SHAHAB Elder Suze 10/28 Released w/o Limitations [employer]([facility]) [employer]([facility] [employer] [facility]) OUTPATIENT [id number] Pre-dep loyment /CHARLOTTE LATHAM 10/28 Released w/o Limitations [employer](B ase Operati ons [facility]) [employer]([facility] Ln-Cln) OUTPATIENT [id number] Notes Entered by: FREDO BROWNING 09 Nov 2015 1314 ------- ------- ------- ------- -- Gissel heel FREDO Gramajo 11/08 Released w/o Limitations [employer](Z Z AGOW Ln-Cln) [employer]([facility] Surgeon Office) OUTPATIENT [id number] Notes Entered by: MARTI HERNANDEZ 12 Nov 2015 1518 ------- ------- ------- ------- -- RTFS MARTI JACOB 11/11 Released w/o Limitations [employer](F light Surgeon Office) [employer]([facility] Surgeon Office) TELE CONSULT [id number] Notes Entered by: Jennifer LÓPEZ 22 Nov 2015 0927 ------- ------- ------- ------- -- NETWORK RESULTS -KYRIE LLAMAS KWNA OSCAR 11/21 [employer](F light Surgeon Office) [employer](ZZ MILW Ln-Cln) OUTPATIENT [id number] Notes Entered by: FREDO BROWNING 04 Jan 2016 0917 ------- ------- ------- ------- -- low back treatme nt FREDO GARCIA 01/03 Released w/o Limitations [employer]([facility] MILW Ln-Cln) [facility] OUTPATIENT [id number] 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 Released w/o Limitations [facility] OUTPATIENT [id number] Theater Provider 03/18 Released w/o Limitations [facility] OUTPATIENT [id number] Theater Provider 03/20 Released w/o Limitations Theater Facilit y [employer]([facility] Ln-Cln) TELE CONSULT [id number] Notes Entered by: FREDO BROWNING 20 Mar 2016 1558 ------- ------- ------- ------- -- R ankle pain and low back pain FREDO GARCIA 03/20 Referred for Appointment [employer]([facility] Ln-Cln) [employer]) OUTPATIENT [id number] Daysi morales in bilat ankles [facility] 04/11 Released w/o Limitations [employer](F light Surgeon Office) [employer]) OUTPATIENT [id number] F/U Deploym ent Issues BIENVEN[employer]O LAZO J 04/15 Released with Work/Duty Limitations [employer](F light Surgeon Office) [employer] OUTPATIENT [id number] KWAN Marion 04/17 Released w/o Limitations [employer](F light Surgeon Office) [employer] OUTPATIENT [id number] KWAN [place] 04/30 Released w/o Limitations [employer]( light Surgeon Office) [employer](ZZ MILW Ln-Cln) OUTPATIENT [id number] Notes Entered by: FREDO BROWNING 08 May 2016 1245 ------- ------- ------- ------- -- low back FREDO GARCIA 05/08 Released w/o Limitations [employer](Z Z AGOW Ln-Cln) [employer]([facility] Surgeon Office) OUTPATIENT [id number] Notes Entered by: JOSE LUIS STONE 08 May 2016 1333 ------- ------- ------- ------- -- RTFS MARTI JACOB 05/08 Released w/o Limitations [employer](F light Surgeon Office) [employer]([facility] Surgeon Office) OUTPATIENT [id number] F/u Lower back pain BIENVENIDO LAZO 06/09 Released with Work/Duty Limitations [employer](F light Surgeon Office) [employer](Z [facility] Ln-Cln) TELE CONSULT [id number] Notes Entered by: FREDO BROWNING 09 Jun 2016 1306 ------- ------- ------- ------- -- low back pain FREDO GARCIA 06/09 Released to Self [employer](Z Z AGOW Ln-Cln) [employer](Z AGO Ln-Cln) OUTPATIENT [id number] Notes Entered by: FREDO BROWNING 10 Jun 2016 0741 ------- ------- ------- ------- -- low back FREDO GARCIA 06/10 Released w/o Limitations [employer](Z Z AGOW Ln-Cln) [employer](Z [facility] Ln-Cln) OUTPATIENT [id number] Notes Entered by: FREDO BROWNING 11 Jun 2016 0733 ------- ------- ------- ------- -- low back FREDO GARCIA 06/11 Released w/o Limitations [employer](Z Z AGOW Ln-Cln) [employer](Z AGOW Ln-Cln) OUTPATIENT [id number] Notes Entered by: FREDO BROWNING 12 Jun 2016 0722 ------- ------- ------- ------- -- low back FREDO GARCIA 06/12 Released w/o Limitations [employer](Z Z [facility] Ln-Cln) [employer](Z AGOW Ln-Cln) OUTPATIENT [id number] Notes Entered by: FREDO BROWNING 17 Jun 2016 0906 ------- ------- ------- ------- -- Low back FREDO GARCIA 06/17 Released w/o Limitations [employer](Z Z [facility] Ln-Cln) [employer](Z AG[facility] Ln-Cln) OUTPATIENT [id number] Notes Entered by: FREDO BROWNING 18 Jun 2016 0744 ------- ------- ------- ------- -- low back FREDO GARCIA 06/18 Released w/o Limitations [employer](Z Z AGOW Ln-Cln) [employer](Z AG[facility] Ln-Cln) OUTPATIENT [id number] Notes Entered by: FREDO BROWNING 20 Jun 2016 0857 ------- ------- ------- ------- -- low back FREDO GARCIA 06/20 Released w/o Limitations [employer](Z Z [facility] Ln-Cln) [employer](Z [facility] Ln-Cln) OUTPATIENT [id number] Notes Entered by: FREDO BROWNING 23 Jun 2016 0814 ------- ------- ------- ------- -- low back FREDO GARCIA 06/23 Released w/o Limitations [employer](Z Z AGOW Ln-Cln) [employer](Z AG[facility] Ln-Cln) OUTPATIENT [id number] Notes Entered by: FREDO BROWNING 25 Jun 2016 0901 ------- ------- ------- ------- -- low back FREDO GARCIA 06/25 Released w/o Limitations [employer](Z Z AGOW Ln-Cln) [employer](Z AGOW Ln-Cln) OUTPATIENT [id number] Notes Entered by: FREDO BROWNING 26 Jun 2016 0746 ------- ------- ------- ------- -- Low back FREDO GARCIA 06/26 Released w/o Limitations [employer](Z Z AGOW Ln-Cln) [employer](Z MIL Ln-Cln) OUTPATIENT [id number] Notes Entered by: FREDO BROWNING 27 Jun 2016 0801 ------- ------- ------- ------- -- low back FREDO GARCIA 06/27 Released w/o Limitations [employer](Z Z AGOW Ln-Cln) [employer](Z AGO Ln-Cln) OUTPATIENT [id number] Notes Entered by: FREDO BROWNING 01 Jul 2016 0727 ------- ------- ------- ------- -- low back FREDO GARCIA 07/01 Released w/o Limitations [employer](Z Z AGOW Ln-Cln) [employer](Hea ring Conservat ion) OUTPATIENT [id number] Notes Entered by: JUAN PABLO GÓMEZ 01 Jul 2016 1302 ------- ------- ------- ------- -- SAV VICTORIA 07/01 Released w/o Limitations [employer](H earing Conserv ation) [employer](ZZ AGOW Ln-Cln) OUTPATIENT [id number] Notes Entered by: FREDO BROWNING 02 Jul 2016 0829 ------- ------- ------- ------- -- low back FREDO GARCIA 07/02 Released w/o Limitations [employer](Z Z MIL Ln-Cln) [employer]([facility] Ln-Cln) OUTPATIENT [id number] Notes Entered by: FREDO BROWNING 03 Jul 2016 0910 ------- ------- ------- ------- -- low back FREDO GARCIA 07/03 Released w/o Limitations [employer](Z MIL Ln-Cln) [employer]([facility] Ln-Cln) OUTPATIENT [id number] Notes Entered by: FREDO BROWNING 04 Jul 2016 0855 ------- ------- ------- ------- -- low back FREDO GARCIA 07/04 Released w/o Limitations [employer](Z MIL Ln-Cln) [employer]([facility] [employer] [facility]) OUTPATIENT [id number] CHARLOTTE FLOR 07/07 Released w/o Limitations [employer]([facility] Operati ons Medical [facility]) [employer]([facility] Surgeon Office) TELE CONSULT [id number] Notes Entered by: JOSESITO GODDARD 07 Jul 2016 1155 ------- ------- ------- ------- -- Network Results /MRI Lumbar Spine July 16 KAITLYNN NICKERSON 07/07 Referred for Appointment [employer](F light Surgeon Office) [employer]([place] MIL Ln-Cln) OUTPATIENT [id number] Notes Entered by: FREDO BROWNING 09 Jul 2016 0810 ------- ------- ------- ------- -- low back FREDO GARCIA 07/09 Released w/o Limitations [employer](Z [facility] Ln-Cln) [employer]([facility] Surgeon Office) OUTPATIENT [id number] MRI F/U BIENVENIDO LAZO 07/11 Released w/o Limitations [employer]( light Surgeon Office) [employer]([facility] Surgeon Office) OUTPATIENT [id number] Notes Entered by: MARTI HERNANDEZ 08 Aug 2016 1118 ------- ------- ------- ------- -- 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[place] MARTI Young 08/08 Released w/o Limitations [employer](F light Surgeon Office) [employer]([facility] [employer] [facility]) OUTPATIENT [id number] Priorit y [facility] CHARLOTTE ARAUJO 08/21 Released w/o Limitations [employer]([facility]) [employer]([facility] Surgeon Office) OUTPATIENT [id number] f/u off base appt CHARLOTTE ARAUJO 10/10 Released w/o Limitations [employer](F light Surgeon Office) [employer]([facility] Surgeon Office) OUTPATIENT [id number] Notes Entered by: ROLAND HONG 21 Nov 2016 0958 ------- ------- ------- ------- -- Injury to 5th digit right hand MARTI BARBOSA 11/21 Released w/o Limitations [employer](F light Surgeon Office) [employer]([facility] [employer] [facility]) TELE CONSULT [id number] Notes Entered by: WINNIE THURSTON 05 Dec 2016 1412 ------- ------- ------- ------- -- Follow up lab results WINNIE THURSTON 12/05 [employer]([facility] Medical [facility]) [employer]([facility] Ln-Cln) OUTPATIENT [id number] Notes Entered by: FREDO BROWNING 31 Dec 2016 0751 ------- ------- ------- ------- -- low back and legs FREDO GARCIA 12/31 Released w/o Limitations [employer](Z Z AGO Ln-Cln) [employer]([facility] Surgeon Office) OUTPATIENT [id number] Notes Entered by: ERICA MORALES 31 Dec 2016 1042 ------- ------- ------- ------- -- FAM Donis 12/31 Released w/o Limitations [employer]([facility] Surgeon Office) [employer]( MIL Ln-Cln) OUTPATIENT [id number] Notes Entered by: FREDO BROWNING 28 Jan 2017 1505 ------- ------- ------- ------- -- FREDO Spivey 01/28 Released w/o Limitations [employer](Z Z AGO Ln-Cln) [employer]([facility] Ln-Cln) OUTPATIENT [id number] VIN DAVIS 02/17 Released w/o Limitations [employer](Z AGO Ln-Cln) [employer]([facility] Ln-Cln) OUTPATIENT [id number] Notes Entered by: FREDO BROWNING 05 Mar 2017 1048 ------- ------- ------- ------- -- FREDO Farooq 03/05 Released w/o Limitations [employer](Z Z AGO Ln-Cln) [employer]( AGO Ln-Cln) OUTPATIENT [id number] Notes Entered by: FREDO BROWNING 09 Mar 2017 1126 ------- ------- ------- ------- -- FREDO Farooq 03/09 Released w/o Limitations [employer](Z AGO Ln-Cln) [employer]([facility] Ln-n) OUTPATIENT [id number] Notes Entered by: FREDO BROWNING 12 Mar 2017 1554 ------- ------- ------- ------- -- FREDO Farooq 03/12 Released w/o Limitations [employer]([facility] [employer] [id number] Notes Entered by: FREDO BROWNING 23 Mar 2017 1025 ------- ------- ------- ------- -- FREDO Farooq 03/23 Released w/o Limitations [employer]([facility]) [employer]([facility] Surgeon Office) OUTPATIENT [id number] Notes Entered by: JOSE LUIS STONE 25 Mar 2017 1141 ------- ------- ------- ------- -- ROSA Dominguez 03/25 Sick at Home/Quarter s [employer]([facility] Surgeon Office) [employer]([facility] Ln-n) OUTPATIENT [id number] Notes Entered by: FREDO BROWNING 30 Mar 2017 0729 ------- ------- ------- ------- -- FREDO Farooq 03/30 Released w/o Limitations [employer]([facility]) [employer]([facility] Ln-n) OUTPATIENT [id number] Notes Entered by: FREDO BROWNING 31 Mar 2017 0818 ------- ------- ------- ------- -- FREDO Farooq 03/31 Released w/o Limitations [employer]([facility]) [employer]([facility] Surgeon Office) OUTPATIENT [id number] RTF BIENVENIDO LAZO 03/31 Released w/o Limitations [employer]( light Surgeon Office) [employer]( MIL Ln-Cln) OUTPATIENT [id number] Notes Entered by: FREDO BROWNING 03 Apr 2017 0802 ------- ------- ------- ------- -- FREDO Farooq 04/03 Released w/o Limitations [employer]([facility]) [employer]([facility] Surgeon Office) OUTPATIENT [id number] ROSA Mcginnis 04/07 Released w/o Limitations [employer]( light Surgeon Office) [employer](War rior Op Med Cl Tm A-AD) TELE CONSULT [id number] Notes Entered by: WINNIE THURSTON 11 Apr 2017 0815 ------- ------- ------- ------- -- WINNIE Dumont 04/11 [employer](W arrior Op Med Cl Tm A-AD) [employer]( MIL Ln-Cln) OUTPATIENT [id number] Notes Entered by: FREDO BROWNING 14 Apr 2017 0805 ------- ------- ------- ------- -- FREDO Gacria arm 04/14 Released w/o Limitations [employer]([facility] Ln-Cln) [employer](Bas [facility] Operation s Medical Cell) TELE CONSULT [id number] Notes Entered by: KAYA KENNEY 14 Apr 2017 1158 ------- ------- ------- ------- -- BENTON TOSCANO 04/14 [employer](B ase Operati ons Medical Cell) [employer]([facility] Surgeon Office) TELE CONSULT [id number] Notes Entered by: WINNIE THURSTON 23 Jul 2017 1556 ------- ------- ------- ------- -- consult WINNIE THURSTON 07/23 [employer]( light Surgeon Office) [employer](ZZ MILW Ln-Cln) OUTPATIENT [id number] Notes Entered by: FREDO BROWNING 28 Jul 2017 0750 ------- ------- ------- ------- -- low back and R elbow FREDO GARCIA 07/28 Released w/o Limitations [employer](Z Z MIL Ln-Cln) [employer]([facility] Surgeon Office) OUTPATIENT [id number] KWAN Andino 07/30 Released w/o Limitations [employer]( light Surgeon Office) [employer](Bas [employer]) OUTPATIENT [id number] PHA/PRE -DEPLOY MENT WINNIE THURSTON 09/01 Released w/o Limitations [employer](B ase Operati ons Medical Cell) [employer]) OUTPATIENT [id number] Pre Deploym ent WINNIE THURSTON P 11/09 Released w/o Limitations [employer](B ase Operati ons Medical [employer]) [employer](38 RQS Phy Ther Clin) OUTPATIENT [id number] VIN DAVIS 04/22 Released w/o Limitations [employer](3 8 RQS Phy Ther Clin) [employer]([facility] Surgeon Office) OUTPATIENT [id number] elbow pain KWAN WHEAT 05/05 Released w/o Limitations [employer]( light Surgeon Office) [employer](ZZ MIL Ln-Cln) OUTPATIENT [id number] 3 Notes Entered by: FREDO BROWNING 20 May 2018 1541 ------- ------- ------- ------- -- Left back FREDO GARCIA ALEJA 05/20 Released w/o Limitations [employer](Z Z AGOW Ln-Cln) [employer](38 [facility] Ther [facility]) OUTPATIENT [id number] 8 Notes Entered by: MARCOS NAYLOR 11 Jun 2018 1004 ------- ------- ------- ------- -- VIN Murrieta 06/11 Released w/o Limitations [employer](3 8 RQS Phy Ther Clin) [employer](38 R[facility] Phy Ther Clin) OUTPATIENT [id number] VIN DAVIS 06/21 Released w/o Limitations [employer](3 8 RQS Phy Ther Clin) [employer](38 RQS Phy Ther Clin) OUTPATIENT [id number] 8 VIN DAVIS 06/22 Released w/o Limitations [employer](3 8 RQS Phy Ther Clin) [employer](38 RQS Phy Ther Clin) OUTPATIENT [id number] VIN DAVIS 06/23 Released w/o Limitations [employer](3 8 RQS Phy Ther Clin) [employer](38 RQS Phy Ther Clin) OUTPATIENT [id number] 3 VIN DAVIS 06/24 Released w/o Limitations [employer](3 8 RQS Phy Ther Clin) [employer](War rior Op Med Cl Tm A-AD) TELE CONSULT [id number] 0 Notes Entered by: WINNIE THURSTON 28 Jun 2018 1324 ------- ------- ------- ------- -- WINNIE Gallo 06/28 [employer](W arrior Op Med Cl Tm A-AD) [employer](38 RQS Phy Ther Clin) OUTPATIENT [id number] VIN DAVIS 06/29 Released w/o Limitations [employer](3 8 RQS Phy Ther Clin) [employer](38 RQS Phy Ther Clin) OUTPATIENT [id number] VIN DAVIS 07/08 Released w/o Limitations [employer](3 8 RQS Phy Ther Clin) [employer](38 RQS Phy Ther Clin) OUTPATIENT [id number] VIN DAVIS 07/09 Released w/o Limitations [employer](3 8 RQS Phy Ther Clin) [employer]([facility] Surgeon Office) OUTPATIENT [id number] PRIORIT Y 3 SAV BENEDICT 07/12 Released w/o Limitations [employer](F light Surgeon Office) [employer](ZZ MILW Ln-Cln) OUTPATIENT [id number] 9 Notes Entered by: FREDO BROWNING 12 Jul 2018 1050 ------- ------- ------- ------- -- FREDO Saleh 07/12 Released w/o Limitations [employer](Z Z AGOW Ln-Cln) [employer](Bas [employer] Operation s Medical Cell) OUTPATIENT [id number] CHARLOTTE Latham 07/16 Released w/o Limitations [employer](B ase Operati ons Medical Cell) [employer](Hea ring Conservat ion) OUTPATIENT [id number] EKTA Quiroga 07/19 Released w/o Limitations [employer](H earing Conserv ation) [employer](ZZ MILW Ln-Cln) OUTPATIENT [id number] 0 Notes Entered by: FREDO BROWNING 16 Aug 2018 0906 ------- ------- ------- ------- -- FREDO Saleh 08/16 Released w/o Limitations [employer](Z Z AGOW Ln-Cln) [employer]([facility] Surgeon Office) OUTPATIENT [id number] 8 Notes Entered by: WINNIE THURSTON 19 Aug 2018 1619 ------- ------- ------- ------- -- WINNIE WHITLOCK 08/19 Released w/o Limitations [employer](F light Surgeon Office) [employer](Fam Med Cl Tm B Non-Ad) TELE CONSULT [id number] 1 Notes Entered by: Uzma CASTILLO 08 Oct 2018 0905 ------- ------- ------- ------- -- NETWORK RESULTS -URGENT CARE 9 BIENVENIDO LAZO 10/08 [employer](F am Med Cl Tm B Non-Ad) [employer]([facility] Surgeon Office) TELE CONSULT [id number] 2 Notes Entered by: Janie CHAMBERS 13 Oct 2018 0909 ------- ------- ------- ------- -- NETWORK RESULTS -ANESTH ESIOLOG Y 019 SAV HOUSTON 10/13 [facility] Group( light Surgeon Office) [facility](CONNOR Flores) OUTPATIENT [id number] 8 Notes Entered by: Elina WHEAT 18 Nov 2018 1436 ------- ------- ------- ------- -- F/u KWAN Mohan 11/18 Released w/o Limitations [employer](Dulce Flores) [employer]([facility] Surgeon Office) TELE CONSULT [id number] 2 Notes Entered by: FAUSTO ELIAS 24 Nov 2018 1019 ------- ------- ------- ------- -- Network Results -Neurol ogy F/U 11/24/19 19 KAITLYNN NICKERSON 11/24 Advice Assessment [employer]( light Surgeon Office) [employer](PEDRO PAK Ln-Cln) OUTPATIENT [id number] 2 Notes Entered by: FREDO BROWNING 11 Jan 2019 0938 ------- ------- ------- ------- -- FREDO Farooq 01/11 Released w/o Limitations [employer](Z Z AGOW Ln-Cln) [employer](Z MIL Ln-Cln) OUTPATIENT [id number] 1 Notes Entered by: FREDO BROWNING 13 Jan 2019 1450 ------- ------- ------- ------- -- R elbow FREDO GARCIA 01/13 Released w/o Limitations [employer]([email or web address] MIL Ln-Cln) [employer](Bas e Operation s Medical Cell) TELE CONSULT [id number] 8 Notes Entered by: DUKE GOTTLIEB 18 Jan 2019 0918 ------- ------- ------- ------- -- Ena Deal/ CHARLOTTE Wallace 01/18 [employer](B ase Operati ons Medical Cell) [employer](ZZ AGOW Ln-Cln) OUTPATIENT [id number] 6 Notes Entered by: FREDO BROWNING 20 Jan 2019 0756 ------- ------- ------- ------- -- R elbow FREDO GARCIA 01/20 Released w/o Limitations [employer](Z Z AGOW Ln-Cln) [employer](CONNOR Flores) TELE CONSULT [id number] 3 Notes Entered by: Elina WHEAT 07 Feb 2019 1050 ------- ------- ------- ------- -- chronic R elbow pain KWAN WHEAT 02/07 [employer](Dulce Flores) [employer]([facility] Surgeon Office) TELE CONSULT [id number] 3 Notes Entered by: SOILA HONG 17 Feb 2019 1104 ------- ------- ------- ------- -- NETWORK RESULTS -MRI ELBOW RIGHT WO CONTRAS T 019 KWAN WHEAT 02/17 [employer](F light Surgeon Office) [employer](CONNOR Flores) OUTPATIENT [id number] 3 Notes Entered by: Elina WHEAT 31 Mar 2019 1657 ------- ------- ------- ------- -- F/U R KWAN White 03/31 Released w/o Limitations [employer](Dulce Flores) [employer]([facility] Surgeon Office) TELE CONSULT [id number] 8 Notes Entered by: LEONCIO DEL VALLE 19 Apr 2019 0832 ------- ------- ------- ------- -- cough, headach e, runny nose YARI MA 04/19 Referred for Appointment [employer]( light Surgeon Office) [employer]([facility] Surgeon Office) OUTPATIENT [id number] sinus pressur e/cough /runny nose x2-3 days CHARLOTTE ARAUJO R S 04/19 Released w/o Limitations [employer]( light Surgeon Office) [employer]([facility] Surgeon Office) OUTPATIENT [id number] RTF CHARLOTTE ARAUJO R S 04/25 Released w/o Limitations [employer](F light Surgeon Office) [employer](Bas [employer] Operation s Medical Cell) OUTPATIENT [id number] [place] Separat ion PE/PCPF BIENVENIDO LAZO 04/27 Released w/o Limitations [employer](B ase Operati ons Medical Cell) [employer](War rior Op Med Cl Tm A-AD) TELE CONSULT [id number] 3 Notes Entered by: SOILA HONG 02 May 2019 1117 ------- ------- ------- ------- -- NETWORK RESULTS -URGENT CARE 020 CASEY JOHANSEN 05/01 [employer](W arrior Op Med Cl Tm A-AD) [employer](Hea ring Conservat ion) OUTPATIENT [id number] separat ion audiogr MELO Arriola 05/01 Released w/o Limitations [employer](Elina earing Juan ation) [employer](CONNOR Flores) OUTPATIENT [id number] 1 Notes Entered by: Elina WHEAT 02 May 2019 1637 ------- ------- ------- ------- -- R lateral epicond ylitis KWAN WHEAT 05/01 Released w/o Limitations [employer] [facility](Dulce Flores) [employer]([facility] Surgeon Office) TELE CONSULT [id number] 3 Notes Entered by: FAUSTO ELIAS 24 May 2019 0928 ------- ------- ------- ------- -- Network Results -Kyrie llamas 03/24/19 20 CHARLOTTE ARAUJO 05/23 [employer]([facility] Surgeon Office) [employer](CONNOR Flores) TELE CONSULT [id number] 6 Notes Entered by: Elina WHEAT 14 Jul 2019 1024 ------- ------- ------- ------- -- R ankle injury KWAN WHEAT 07/13 [facility] Group(Dulce Flores) [employer](38 RQS Phy Ther Clin) OUTPATIENT [id number] 2 Notes Entered by: VONDA MORGAN 14 Jul 2019 1515 ------- ------- ------- ------- -- Right Ankle/F oot Pain JT QUINONEZ 07/13 Released w/o Limitations [employer] [facility](3 8 RQS Phy Ther Clin) [employer]([facility] Surgeon Office) TELE CONSULT [id number] 9 Notes Entered by: Janie CHAMBERS 15 Jul 2019 0916 ------- ------- ------- ------- -- NETWORK RESULTS -XR ANKLE 3+ VW RIGHT 07/14/19 20 BIENVENIDO LAZO 07/14 [employer](F light Surgeon Office) [employer](CONNOR Flores) TELE CONSULT [id number] 3 Notes Entered by: Elina WHEAT 15 Jul 2019 1243 ------- ------- ------- ------- -- R ankle injury- plain films results KWAN WHEAT 07/14 [facility](Dulce Flores) [facility] Outpatient Encounter [id number] 04/06 [facility] Outpatient Encounter [id number] 04/06 [facility] Outpatient Encounter [id number] 06/09 [facility] Outpatient Encounter [id number] Diagnos is: ICD-10- CM Z00.8 Encount er for other general examina tion
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<br/ > JENA BERNAL 06/09 [facility] (89[facility]) PRO PHONE CALL 11-20 MIN [id number] [id number] Diagnos is: ICD-10- CM Z73.3 Stress, not elsewhe re classif ied<br/ > RATHKE,LACKEYAyad DEGROOT 06/10 [facility] (6[facility] En[facility] [id number] 06/10 [facility] En[facility] [id number] 06/10 [facility] Out[facility] Encounter [id number] 06/14 [facility] EXERCISE CLASS [id number] Diagnos is: ICD-10- CM Y93.42 Activit y, yoga
LIBBY BLACKWELL 06/18 [facility] PSYTX W PT 45 MINUTES [id number] [id number] Diagnos is: ICD-10- CM F43.10 Post-tr aumatic stress disorde r, unspeci fied
JENA BERNAL 06/18 [facility] COMMUNITY/ WORK REINTEGRAT ION [id number] [id number] Diagnos is: ICD-10- CM Z56.0 Unemplo yment, unspeci fied
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
PAULIE LOCKST SHAMA ANG 06/25 [facility] PSYTX W PT 45 MINUTES [id number] [id number] Diagnos is: ICD-10- CM F43.12 Post-tr aumatic stress disorde r, chronic
JENA BERNAL 06/25 [facility] Out[facility] Encounter [id number] 06/29 [facility] Outpatient Encounter [id number] 07/05 [facility] INTRAORAL PERIAPICAL [place] ADD [id number] Diagnos is: ICD-10- CM K08.9 Disorde r of teeth and support ing structu res, unspeci fied
RENATA SOLANO AM 07/06 [facility] PSYTX W PT 45 MINUTES [id number] [id number] Diagnos is: ICD-10- CM F43.12 Post-tr aumatic stress disorde r, chronic
JENA BERNAL 07/06 [facility] Out[facility] Encounter [id number] 07/07 [facility] Outpatient Encounter [id number] 07/14 [facility] PSYCH DIAGNOSTIC EVALUATION [id number] [id number] Diagnos is: ICD-10- CM F90.1 Attn-de fct hyperac tivity disorde r, predom hyperac tive type
OFKENJI LARIOS I 07/15 [place] [facility] Out[facility] Encounter [id number] 07/19 [facility] OFFICE O/P EST LOW 20 MIN [id number] [id number] Diagnos is: ICD-10- CM M54.12 Radicul opathy, cervica l region< br/> CHAYO BUTLER 07/19 [place] [facility] Outpatient Encounter [id number] CHAYO BUTLER 07/19 [facility] OFFICE O/P NEW MOD 45 MIN [id number] Diagnos is: ICD-10- CM M54.59 Other low back pain
DARYA DENT RA 07/20 [facility] Out[facility] Encounter [id number] 07/21 [facility] MECHANICAL TRACTION THERAPY [id number] Diagnos is: ICD-10- CM M54.59 Other low back pain
DARYA DENT RA 07/23 [facility] Out[facility] Encounter [id number] 07/30 [facility] Out[facility] Encounter [id number] 07/30 [facility] Out[facility] Encounter [id number] 08/04 [facility] Outpatient Encounter [id number] 08/04 [facility] COMPRE OPH EXAM NEW PT 1/> [id number] Diagnos is: ICD-10- CM 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
FROYLAN DIAZ FRANKI 08/05 [facility] FIT SPECTACLES MONOFOCAL [id number] [id number] Diagnos is: ICD-10- CM Z46.0 Encount er for fit/adj st of spectac les and contact lenses< br/> FROYLAN DIAZ FRANKI 08/05 [facility] [place] OFF/OP CNSLTJ NEW/EST MOD 40 [id number] [id number] Diagnos is: ICD-10- CM 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
ST ALTA EVEN G 08/10 [place] [facility] COMMUNITY/ WORK REINTEGRAT ION [id number] Diagnos is: ICD-10- CM Z56.0 Unemplo yment, unspeci fied
ST SHAMA MAGANA 08/11 [facility] Out[facility] Encounter [id number] 08/12 [facility] Outpatient Encounter [id number] 08/19 [facility] Outpatient Encounter [id number] 08/25 [facility] Outpatient Encounter [id number] 09/06 [facility] OFFICE O/P NEW HI 60 MIN [id number] Diagnos is: ICD-10- CM Z87.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
ST SHAMA HOLM G 09/23 [place] [facility] Outpatient Encounter [id number] 09/24 [facility] Outpatient Encounter [id number] 09/24 [facility] BIOFEEDBAC K TRAIN ANY METH [id number] [id number] Diagnos is: ICD-10- CM 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
TREVMITLIN AntoineN 09/27 [place] [facility] THER IVNTJ EA ADDL 15 MIN [id number] 1. 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
SY,CAR YN F 09/30 [facility] LD BIOFEEDBAC K TRAIN ANY METH [id number] 1BY. 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
SY,CAR YN F 10/05 [facility] THER IVNTJ EA ADDL 15 MIN [id number] 1. 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
SY,CAR YN F 10/12 [facility] MANUAL THERAPY /> REGIONS [id number] 1. Diagnos is: ICD-10- CM M25.529 Pain in unspeci fied elbow<b r/> CIARAMARIE,TERE LIE E 10/14 [facility] [place] Outpatient Encounter [id number] 1BY. 74 10/18 [place] [facility] Outpatient Encounter [id number] 1.10/25 [facility] THER IVNTJ EA ADDL 15 MIN [id number] 1. 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
SY,CAR YN F 10/26 [facility] Out[facility] En[facility] [id number] [facility] KATELYNN MDLTY 1+ULTRASOU ND EA 15 [id number] 1. Diagnos is: ICD-10- CM M25.529 Pain in unspeci fied elbow<b r/> MACHON,TERE LIE E 11/04 [facility] THER IVNTJ EA ADDL 15 MIN [id number] 1. 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
SY,CAR YN F 12/08 [facility] Outpatient Encounter [id number] 1.12/27 [facility] KATELYNN MDLTY 1+ULTRASOU ND EA 15 [id number] [id number] Diagnos is: ICD-10- CM M25.529 Pain in unspeci fied elbow<b r/> MACHON,TERE LIE E 12/30 [facility] Outpatient Encounter [id number]/05 [facility] OFFICE O/P EST LOW 20 MIN [id number] [id number] Diagnos is: ICD-10- CM G56.00 Carpal tunnel syndrom e, unspeci fied upper limb
CHAYO BUTLER 01/14 [place] [facility] THER IVNTJ EA ADDL 15 MIN [id number] 1. 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
SY,CAR YN F 01/19 [facility] KATELYNN MDLTY 1+ULTRASOU ND EA 15 53989-4.63 1. Diagnos is: ICD-10- CM M25.529 Pain in unspeci fied elbow<b r/> MACHON,TERE LIE E 01/20 [facility] Out[facility] Encounter [id number]/24 [facility] Out[facility] Encounter [id number] 01/31 [facility] Out[facility]counter [id number] 1.01/31 /2024 [facility] Outpatient [facility]counter [id number] 01/31 [facility] CASE [facility] LIT [id number] Diagnos is: ICD-10- CM K03.6 Deposit s [accret ions] on teeth<b r/> KAMARI,ILA SPARKLE K 02/01 [facility] O/P EST LOW 20 MIN [id number] Diagnos is: ICD-10- CM 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
SY,CAR YN F 02[facility] Procedures Combined list of: 1) Procedures from [facility] facilities going back up to thelast 18 months, not all [facility] non-surgical procedures are included; 2) All procedures from the Department of Defense facilities. Procedure Procedure Type Code Date Perfomer Comments Sourc e [id number] 2001 [facility] Vasectomy [facility] Testicular procedure post Vasectomy -C [facility] Bilateral ulnar nerve relocation [facility] Secondary closure of surgical wound or dehiscence, extensive or complicated Secondary closure of surgical wound or dehiscence, extensive or complicated [address] [place] [address] [facility]; ankle and/or foot Strapping; ankle and/or foot [id number] Outside Source Comment: Pt returned later for KT for swelling [address] [place], [place] [id number] [employer]) Arthrocentesis, aspiration and/or injection; major joint or bursa (eg, shoulder, hip, knee joint, subacromial bursa) Arthrocentesis, aspiration and/or injection; major joint or bursa (eg, shoulder, hip, knee joint, subacromial bursa) [id number] Outside [facility] e Comment: Subacromial Injection Procedure Note After reviewing the risks and benefits of the procedure with the patient, the patient signed the informed consent and all questions were addressed. Once the patient confirmed the injection site, a time out was performed verifying patient's date of , social security number and allergies. Skin was prepped with isopropyl alcohol with multiple cleanings of skin. Using a posterior injection site, 10 ml injection mixture was injected into sub acromial space without difficulty. Patient tolerated procedure well. Injection Mixture: Kenalog -40 2 ml Lidocaine 1% plain, 4 ml Marcaine 0.5% plain, [address] [place] [address] [employer] (mytaxi) Simple repair of superficial wounds of scalp, neck, axillae, external genitalia, trunk and/or extremities (including hands and feet); 2.5 cm or le Simple repair of superficial wounds of scalp, neck, axillae, external genitalia, trunk and/or extremities (including hands and feet); 2.5 cm or less [id number] [place] [address] [facility] Use of wet to dry gonzalo ings prescribed or recommended (CWC) Use of wet to dry dressings prescribed or recommended (CW) [id number] [address] [place] [address] [facility] PURE TONE AUDIOMTRY THRESHOLD COMPUTER DEV AIR PURE TONE AUDIOMTRY THRESHOLD COMPUTER DEV AIR [id number] [address] [place] [address] [employer] (mytaxi) INTRAMUSCULAR INJECTION OF ANTIBIOTIC (SPECIFY) 2000 [facility] WRIST-HAND ORTHOSIS (WHO), WRIST EXTENSION COCK-UP, PREFABRICATED, INCLUDES FITTING AND ADJUSTMENT 2000 DoD APPLICATION OF SHORT ARM SPLINT (FOREARM TO HAND); STATIC 2000 [facility] PSYCHOLOGICAL TESTING (INCLUDES PSYCHODIAGNOSTIC ASSESSMENT OF PERSONALITY PSYCHOPATHOLOGY, EMOTIONALITY, INTELLECTUAL ABILITIES, EG, WAIS-R, RORSCHACH, MMPI) WITH INTERPRETATION AND REPORT, PER HOUR 2000 DoD PURE TONE AUDIOMETRY (THRESHOLD); AIR ONLY 2006 [facility] TYPHOID VACCINE, CAPSULAR POLYSACCHARIDE (VICPS), FOR INTRAMUSCULAR USE 2006 DoD IMMUNIZATION ADMINISTRATION (INCLUDES PERCUTANEOUS, INTRADERMAL, SUBCUTANEOUS, OR INTRAMUSCULAR INJECTIONS); 1 VACCINE (SINGLE OR COMBINATION VACCINE/TOXOID) 2005 DoD SERVICE(S) PROVIDED ON AN EMERGENCY BASIS IN THE OFFICE, WHICH DISRUPTS OTHER SCHEDULED OFFICE SERVICES, IN ADDITION TO BASIC SERVICE 2005 [facility] VIS FUNCT SCREEN,AUTOMAT/SEMI- AUTOMAT BILAT QUANT DETERM VISUAL ACUITY,OCULAR ALIGN,COLOR VISION,PSEUDOISOCHRO MAT PLATES,& FIELD VIS (MAY INC ALL/SOME SCRN DETERM FOR CONTRAST SENSITIV,VIS UND GLARE) 2005 [facility] VIS FUNCT SCREEN,AUTOMAT/SEMI- AUTOMAT BILAT QUANT DETERM VISUAL ACUITY,OCULAR ALIGN,COLOR VISION,PSEUDOISOCHRO MAT PLATES,& FIELD VIS (MAY INC ALL/SOME SCRN DETERM FOR CONTRAST SENSITIV,VIS UND GLARE) 2005 [facility] REMOVAL OF DEVITALIZED TISS FRM WOUND(S),NON-SELECT DEBRIDEMENT,WO ANES (EG,[id number] DRESS,ENZYMATIC,AUREA S,LARVAL THER),INCL TOPICAL KATELYNN(S),WOUND ASSESS,& INSTRUCTION(S) FOR ONGOING CARE,PER SESS 2005 [facility] TREATMENT OF SUPERFICIAL WOUND DEHISCENCE; WITH PACKING 2005 [facility] TREATMENT OF SUPERFICIAL WOUND DEHISCENCE; WITH PACKING 2005 DoD TREATMENT OF SUPERFICIAL WOUND DEHISCENCE; WITH PACKING 2005 DoD SURGICAL TRAYS 2005 DoD IMMUNIZATION ADMINISTRATION (INCLUDES PERCUTANEOUS, INTRADERMAL, SUBCUTANEOUS, OR INTRAMUSCULAR INJECTIONS); 1 VACCINE (SINGLE OR COMBINATION VACCINE/TOXOID) 2004 DoD VIS FUNCT SCREEN,AUTOMAT/SEMI- AUTOMAT BILAT QUANT DETERM VISUAL ACUITY,OCULAR ALIGN,COLOR VISION,PSEUDOISOCHRO MAT PLATES,& FIELD VIS (MAY INC ALL/SOME SCRN DETERM FOR CONTRAST SENSITIV,VIS UND GLARE) 2004 [facility] INTERPRETATION OR EXPLANATION OF RESULTS OF PSYCHIATRIC, OTH MEDICAL EXAMS/PROCEDURES, OR OTH ACCUMULATED DATA TO FAMILY OR OTH RESPONSIBLE PERSONS,OR ADVISING THEM HOW TO ASSIST PATIENT 2004 [facility] VIS FUNCT SCREEN,AUTOMAT/SEMI- AUTOMAT BILAT QUANT DETERM VISUAL ACUITY,OCULAR ALIGN,COLOR VISION,PSEUDOISOCHRO MAT PLATES,& FIELD VIS (MAY INC ALL/SOME SCRN DETERM FOR CONTRAST SENSITIV,VIS UND GLARE) 2003 [facility] RANGE OF MOTION MEASUREMENTS AND REPORT (SEPARATE PROCEDURE); EACH EXTREMITY (EXCLUDING HAND) OR EACH TRUNK SECTION (SPINE) 2002 [facility] APPLICATION OF A MODALITY TO 1 OR MORE AREAS; HOT OR COLD PACKS 2002 [facility] EDUCATIONAL SUPPLIES, SUCH BOOKS, TAPES, AND PAMPHLETS, FOR THE PATIENT'S EDUCATION AT COST TO PHYSICIAN OR OTHER QUALIFIED HEALTH CLINICAL REHABILITATION COORDINATOR 2001 [facility] PSYCHIATRIC EVALUATION OF HOSPITAL RECORDS, OTHER PSYCHIATRIC REPORTS, PSYCHOMETRIC AND/OR PROJECTIVE TESTS, AND OTHER ACCUMULATED DATA FOR MEDICALDIAGNOSTIC PURPOSES 2012 [facility] COLOR VISION EXAMINATION, EXTENDED, EG, ANOMALOSCOPE OR EQUIVALENT 2011 [facility] DETERMINATION OF REFRACTIVE STATE 2011 DoD CHIROPRACTIC MANIPULATIVE TREATMENT (CMT); SPINAL, 1-2 REGIONS 2010 DoD CHIROPRACTIC MANIPULATIVE TREATMENT (CMT); SPINAL, 1-2 REGIONS 2010 DoD APPLICATION OF A MODALITY TO 1 OR MORE AREAS; HOT OR COLD PACKS 2010 DoD APPLICATION OF A MODALITY TO 1 OR MORE AREAS; HOT OR COLD PACKS 2010 DoD APPLICATION OF A MODALITY TO 1 OR MORE AREAS; ELECTRICAL STIMULATION (UNATTENDED) 2010 [facility] COLOR VISION EXAMINATION, EXTENDED, EG, ANOMALOSCOPE OR EQUIVALENT 2010 DoD APPLICATION OF A MODALITY TO 1 OR MORE AREAS; ULTRASOUND, EACH 15 MINUTES 2010 DoD APPLICATION OF A MODALITY TO 1 OR MORE AREAS; HOT OR COLD PACKS 2010 DoD APPLICATION OF A MODALITY TO 1 OR MORE AREAS; HOT OR COLD PACKS 2010 DoD APPLICATION OF A MODALITY TO 1 OR MORE AREAS; ELECTRICAL STIMULATION (UNATTENDED) 2010 DoD PSYCHIATRIC EVALUATION OF HOSPITAL RECORDS, OTHER PSYCHIATRIC REPORTS, PSYCHOMETRIC AND/OR PROJECTIVE TESTS, AND OTHER ACCUMULATED DATA FOR MEDICALDIAGNOSTIC PURPOSES 2010 DoD PSYCHIATRIC EVALUATION OF HOSPITAL RECORDS, OTHER PSYCHIATRIC REPORTS, PSYCHOMETRIC AND/OR PROJECTIVE TESTS, AND OTHER ACCUMULATED DATA FOR MEDICALDIAGNOSTIC PURPOSES 2010 [facility] SCREENING TEST OF VISUAL ACUITY, QUANTITATIVE, BILATERAL 2009 DoD THERAPEUTIC ACTIVITIES, DIRECT (ONE-ON-ONE) PATIENT CONTACT (USE OF DYNAMIC ACTIVITIES TO IMPROVE FUNCTIONAL PERFORMANCE), EACH 15 MINUTES 2008 DoD SELF-CARE/HOME MANAGMENT TRAIN (EG,ACT OF DAILY LIVING (ADL) &COMPENSAT TRAIN,MEAL PREPARATION,SAFETY PROCS,AND INSTRUCT IN USE OF ASST TECHNOLOGY DEV/ADPT EQUIP) DIR ONE-ON-ONE CONT,EA 15 MINUTES 2008 DoD THERAPEUTIC ACTIVITIES, DIRECT (ONE-ON-ONE) PATIENT CONTACT (USE OF DYNAMIC ACTIVITIES TO IMPROVE FUNCTIONAL PERFORMANCE), EACH 15 MINUTES 2008 DoD APPLICATION OF A MODALITY TO 1 OR MORE AREAS; HOT OR COLD PACKS 2008 DoD PHYSICAL THERAPY RE-EVALUATION 2008 DoD APPLICATION OF A MODALITY TO 1 OR MORE AREAS; TRACTION, MECHANICAL 2008 DoD APPLICATION OF A MODALITY TO 1 OR MORE AREAS; HOT OR COLD PACKS 2008 DoD APPLICATION OF A MODALITY TO 1 OR MORE AREAS; HOT OR COLD PACKS 2008 DoD THERAPEUTIC PROCEDURE, 1 OR MORE AREAS, EACH 15 MINUTES; THERAPEUTIC EXERCISES TO DEVELOP STRENGTH AND ENDURANCE, RANGE OF MOTION AND FLEXIBILITY 2008 DoD SELF-CARE/HOME MANAGMENT TRAIN (EG,ACT OF DAILY LIVING (ADL) &COMPENSAT TRAIN,MEAL PREPARATION,SAFETY PROCS,AND INSTRUCT IN USE OF ASST TECHNOLOGY DEV/ADPT EQUIP) DIR ONE-ON-ONE CONT,EA 15 MINUTES 2008 DoD THERAPEUTIC ACTIVITIES, DIRECT (ONE-ON-ONE) PATIENT CONTACT (USE OF DYNAMIC ACTIVITIES TO IMPROVE FUNCTIONAL PERFORMANCE), EACH 15 MINUTES 2008 DoD APPLICATION OF A MODALITY TO 1 OR MORE AREAS; HOT OR COLD PACKS 2008 DoD SERIAL TONOMETRY (SEP PROC) WITH MULT DRU OF INTRAOCULAR PRESSURE OVER EXTENDED TIME PERIOD W/ INTERP & REPORT, SAME DAY (EG, DIURNAL CURVE OR MEDICAL TX OF ACUTE ELEVATION OF INTRAOCULAR PRESSURE) 2008 DoD THERAPEUTIC PROCEDURE, 1 OR MORE AREAS, EACH 15 MINUTES; THERAPEUTIC EXERCISES TO DEVELOP STRENGTH AND ENDURANCE, RANGE OF MOTION AND FLEXIBILITY 2008 DoD PSYCHIATRIC EVALUATION OF HOSPITAL RECORDS, OTHER PSYCHIATRIC REPORTS, PSYCHOMETRIC AND/OR PROJECTIVE TESTS, AND OTHER ACCUMULATED DATA FOR MEDICALDIAGNOSTIC PURPOSES 2008 [facility] SERIAL TONOMETRY (SEP PROC) WITH MULT DRU OF INTRAOCULAR PRESSURE OVER EXTENDED TIME PERIOD W/ INTERP & REPORT, SAME DAY (EG, DIURNAL CURVE OR MEDICAL TX OF ACUTE ELEVATION OF INTRAOCULAR PRESSURE) 2007 [facility] ELECTROCARDIOGRAM, ROUTINE ECG WITH AT LEAST 12 LEADS; WITH INTERPRETATION AND REPORT 2007 [facility] PSYCHIATRIC DIAGNOSTIC INTERVIEW EXAMINATION 2007 [facility] PSYCHOLOG TESTING (ASSESS EMOTION,INTELLECT ABILITIES,PERSONALIT Y & PSYCHOPATH,EG,MMPI,R ORSCHRISCH,WAIS)/HR PSYCHOLOGIST/PHYS TIME,BOTH [id number] ADMIN TEST TO PAT & INTERP TEST RESULT & PREP RPT 2007 DoD STRAPPING; ANKLE AND/OR FOOT 2019 DoD PROLOTHERAPY 2019 DoD TELE ASSESS & MGT SRV PROV QUAL NONPHYS HLTH CARE PRO TO EST PAT,PARENT,GUARD NOT ORIG REL ASSESS & MGT SRV PROV W/IN PREV 7 DAYS NOR LEAD ASSESS & MGT SRV/PX W/IN NXT 24 HR/SOON APT;5-10 MIN MED DIS 2019 DoD PROLOTHERAPY 2019 DoD THERAPEUTIC PROCEDURE, 1 OR MORE AREAS, EACH 15 MINUTES; THERAPEUTIC EXERCISES TO DEVELOP STRENGTH AND ENDURANCE, RANGE OF MOTION AND FLEXIBILITY 2018 DoD APPLICATION OF A MODALITY TO 1 OR MORE AREAS; VASOPNEUMATIC DEVICES 2018 [facility] NEEDLE, STERILE, ANY SIZE, EACH 2018 DoD ACUPUNCTURE, 1 OR MORE NEEDLES; WITHOUT ELECTRICAL STIMULATION, INITIAL 15 MINUTES OF PERSONAL ONE-ON-ONE CONTACT WITH THE PATIENT 2018 DoD MANUAL THERAPY TECHNIQUES (EG, MOBILIZATION/ MANIPULATION, MANUAL LYMPHATIC DRAINAGE, MANUAL TRACTION), 1 OR MORE REGIONS, EACH 15 MINUTES 2018 [facility] PURE TONE AUDIOMETRY (THRESHOLD), AUTOMATED; AIR ONLY 2018 DoD APPLICATION OF A MODALITY TO 1 OR MORE AREAS; HOT OR COLD PACKS 2018 DoD APPLICATION OF A MODALITY TO 1 OR MORE AREAS; VASOPNEUMATIC DEVICES 2018 DoD APPLICATION OF A MODALITY TO 1 OR MORE AREAS; HOT OR COLD PACKS 2018 DoD THERAPEUTIC PROCEDURE, 1 OR MORE AREAS, EACH 15 MINUTES; THERAPEUTIC EXERCISES TO DEVELOP STRENGTH AND ENDURANCE, RANGE OF MOTION AND FLEXIBILITY 2018 [facility] THERAPEUTIC PROCEDURE, 1 OR MORE AREAS, EACH 15 MINUTES; THERAPEUTIC EXERCISES TO DEVELOP STRENGTH AND ENDURANCE, RANGE OF MOTION AND FLEXIBILITY 2018 DoD THERAPEUTIC PROCEDURE, 1 OR MORE AREAS, EACH 15 MINUTES; THERAPEUTIC EXERCISES TO DEVELOP STRENGTH AND ENDURANCE, RANGE OF MOTION AND FLEXIBILITY 2018 [facility] THERAPEUTIC PROCEDURE, 1 OR MORE AREAS, EACH 15 MINUTES; THERAPEUTIC EXERCISES TO DEVELOP STRENGTH AND ENDURANCE, RANGE OF MOTION AND FLEXIBILITY 2018 DoD APPLICATION OF A MODALITY TO 1 OR MORE AREAS; HOT OR COLD PACKS 2018 DoD OSTEOPATHIC MANIPULATIVE TREATMENT (OMT); 1-2 BODY REGIONS INVOLVED 2018 [facility] OSTEOPATHIC MANIPULATIVE TREATMENT (OMT); 1-2 BODY REGIONS INVOLVED 2018 [facility] PSYCHOTHERAPY, 60 MINUTES WITH PATIENT 2018 [facility] INJECTION, TRIAMCINOLONE ACETONIDE, NOT OTHERWISE SPECIFIED, 10 MG 2018 DoD APPLICATION OF A MODALITY TO 1 OR MORE AREAS; IONTOPHORESIS, EACH 15 MINUTES 2018 [facility] BRIEF EMOTIONAL/BEHAVIORAL ASSESSMENT (EG, DEPRESSION INVENTORY, ATTENTION-DEFICIT/HY PERACTIVITY DISORDER [ADHD] SCALE), WITH SCORING AND DOCUMENTATION, PER STANDARDIZED INSTRUMENT 2018 [facility] NEUROPSYCHOLOGICAL TESTING (EG, [place] CARD SORTING TEST), ADMINISTERED BY A COMPUTER, WITH QUALIFIED HEALTH CLINICAL REHABILITATION COORDINATOR INTERPRETATION AND REPORT 2017 [facility] PSYCHIATRIC EVALUATION OF HOSPITAL RECORDS, OTHER PSYCHIATRIC REPORTS, PSYCHOMETRIC AND/OR PROJECTIVE TESTS, AND OTHER ACCUMULATED DATA FOR MEDICALDIAGNOSTIC PURPOSES 2017 [facility] RE-EVAL,ATHLETIC TRAINING ESTAB PLAN OF CARE REQ:ASSES,CARA FUNC STAT WHEN DOC CHANGE;REV PLAN OF CARE,STAND,ASSESS INSTR &/DRU ASSESS,FUNC OUTCOME W UPDATE,20 MIN [id number] W THE PATIENT &/FAMILY 2017 [facility] NEEDLE, STERILE, ANY SIZE, EACH 2017 [facility] MANUAL THERAPY TECHNIQUES (EG, MOBILIZATION/ MANIPULATION, MANUAL LYMPHATIC DRAINAGE, MANUAL TRACTION), 1 OR MORE REGIONS, EACH 15 MINUTES 2017 [facility] MANUAL THERAPY TECHNIQUES (EG, MOBILIZATION/ MANIPULATION, MANUAL LYMPHATIC DRAINAGE, MANUAL TRACTION), 1 OR MORE REGIONS, EACH 15 MINUTES 2017 DoD APPLICATION OF A MODALITY TO 1 OR MORE AREAS; ELECTRICAL STIMULATION (UNATTENDED) 2017 [facility] APPLICATION OF A MODALITY TO 1 OR MORE AREAS; HOT OR COLD PACKS 2017 [facility] APPLICATION OF A MODALITY TO 1 OR MORE AREAS; HOT OR COLD PACKS 2017 DoD THERAPEUTIC PROCEDURE, 1 OR MORE AREAS, EACH 15 MINUTES; THERAPEUTIC EXERCISES TO DEVELOP STRENGTH AND ENDURANCE, RANGE OF MOTION AND FLEXIBILITY 2017 [facility] NEEDLE, STERILE, ANY SIZE, EACH 2017 [facility] PHYSICAL OR MANIPULATIVE THERAPY PERFORMED FOR MAINTENANCE RATHER THAN BAPTIST 2016 DoD APPLICATION OF A MODALITY TO 1 OR MORE AREAS; HOT OR COLD PACKS 2016 [facility] NEEDLE, STERILE, ANY SIZE, EACH 2016 [facility] ENVIRONMENTAL INTERVENTION FOR MEDICAL MGMT PURPOSES ON A PSYCHIATRIC PATIENT'S BEHALF WITH AGENCIES, EMPLOYERS, OR INSTITUTIONS 2016 [facility] PSYCHIATRIC DIAGNOSTIC EVALUATION WITH MEDICAL SERVICES 2016 [facility] THERAPEUTIC PROCEDURE, 1 OR MORE AREAS, EACH 15 MINUTES; THERAPEUTIC EXERCISES TO DEVELOP STRENGTH AND ENDURANCE, RANGE OF MOTION AND FLEXIBILITY 2016 [facility] COLOR VISION EXAMINATION, EXTENDED, EG, ANOMALOSCOPE OR EQUIVALENT 2016 [facility] MANUAL THERAPY TECHNIQUES (EG, MOBILIZATION/ MANIPULATION, MANUAL LYMPHATIC DRAINAGE, MANUAL TRACTION), 1 OR MORE REGIONS, EACH 15 MINUTES 2016 [facility] MANUAL THERAPY TECHNIQUES (EG, MOBILIZATION/ MANIPULATION, MANUAL LYMPHATIC DRAINAGE, MANUAL TRACTION), 1 OR MORE REGIONS, EACH 15 MINUTES 2016 [facility] THERAPEUTIC PROCEDURE, 1 OR MORE AREAS, EACH 15 MINUTES; THERAPEUTIC EXERCISES TO DEVELOP STRENGTH AND ENDURANCE, RANGE OF MOTION AND FLEXIBILITY 2016 [facility] PURE TONE AUDIOMETRY (THRESHOLD), AUTOMATED; AIR ONLY 2016 [facility] MANUAL THERAPY TECHNIQUES (EG, MOBILIZATION/ MANIPULATION, MANUAL LYMPHATIC DRAINAGE, MANUAL TRACTION), 1 OR MORE REGIONS, EACH 15 MINUTES 2016 [facility] MANUAL THERAPY TECHNIQUES (EG, MOBILIZATION/ MANIPULATION, MANUAL LYMPHATIC DRAINAGE, MANUAL TRACTION), 1 OR MORE REGIONS, EACH 15 MINUTES 2016 DoD THERAPEUTIC PROCEDURE, 1 OR MORE AREAS, EACH 15 MINUTES; THERAPEUTIC EXERCISES TO DEVELOP STRENGTH AND ENDURANCE, RANGE OF MOTION AND FLEXIBILITY 2016 [facility] APPLICATION OF A MODALITY TO 1 OR MORE AREAS; ELECTRICAL STIMULATION (UNATTENDED) 2016 [facility] THERAPEUTIC PROCEDURE, 1 OR MORE AREAS, EACH 15 MINUTES; THERAPEUTIC EXERCISES TO DEVELOP STRENGTH AND ENDURANCE, RANGE OF MOTION AND FLEXIBILITY 2016 [facility] NEEDLE, STERILE, ANY SIZE, EACH 2016 DoD THERAPEUTIC PROCEDURE, 1 OR MORE AREAS, EACH 15 MINUTES; THERAPEUTIC EXERCISES TO DEVELOP STRENGTH AND ENDURANCE, RANGE OF MOTION AND FLEXIBILITY 2016 DoD THERAPEUTIC PROCEDURE, 1 OR MORE AREAS, EACH 15 MINUTES; THERAPEUTIC EXERCISES TO DEVELOP STRENGTH AND ENDURANCE, RANGE OF MOTION AND FLEXIBILITY 2016 DoD NEEDLE, STERILE, ANY SIZE, EACH 2016 DoD THERAPEUTIC PROCEDURE, 1 OR MORE AREAS, EACH 15 MINUTES; THERAPEUTIC EXERCISES TO DEVELOP STRENGTH AND ENDURANCE, RANGE OF MOTION AND FLEXIBILITY 2016 DoD THERAPEUTIC PROCEDURE, 1 OR MORE AREAS, EACH 15 MINUTES; THERAPEUTIC EXERCISES TO DEVELOP STRENGTH AND ENDURANCE, RANGE OF MOTION AND FLEXIBILITY 2016 DoD THERAPEUTIC PROCEDURE, 1 OR MORE AREAS, EACH 15 MINUTES; THERAPEUTIC EXERCISES TO DEVELOP STRENGTH AND ENDURANCE, RANGE OF MOTION AND FLEXIBILITY 2016 [facility] OSTEOPATHIC MANIPULATIVE TREATMENT (OMT); 3-4 BODY REGIONS INVOLVED 2016 [facility] OSTEOPATHIC MANIPULATIVE TREATMENT (OMT); 3-4 BODY REGIONS INVOLVED 2016 [facility] OSTEOPATHIC MANIPULATIVE TREATMENT (OMT); 1-2 BODY REGIONS INVOLVED 2015 [facility] NEEDLE, STERILE, ANY SIZE, EACH 2015 [facility] BRIEF EMOTIONAL/BEHAVIORAL ASSESSMENT (EG, DEPRESSION INVENTORY, ATTENTION-DEFICIT/HY PERACTIVITY DISORDER [ADHD] SCALE), WITH SCORING AND DOCUMENTATION, PER STANDARDIZED INSTRUMENT 2015 [facility] NEUROPSYCHOLOGICAL TESTING (EG, [place] CARD SORTING TEST), ADMINISTERED BY A COMPUTER, WITH QUALIFIED HEALTH CLINICAL REHABILITATION COORDINATOR INTERPRETATION AND REPORT 2015 [facility] APPLICATION OF A MODALITY TO 1 OR MORE AREAS; HOT OR COLD PACKS 2015 [facility] MANUAL THERAPY TECHNIQUES (EG, MOBILIZATION/ MANIPULATION, MANUAL LYMPHATIC DRAINAGE, MANUAL TRACTION), 1 OR MORE REGIONS, EACH 15 MINUTES 2015 [facility] PURE TONE AUDIOMETRY (THRESHOLD), AUTOMATED; AIR ONLY 2015 [facility] NEEDLE, STERILE, ANY SIZE, EACH 2015 [facility] PHYSICAL THERAPY EVALUATION 2015 DoD NEEDLE, STERILE, ANY SIZE, EACH 2015 DoD THERAPEUTIC PROCEDURE, 1 OR MORE AREAS, EACH 15 MINUTES; THERAPEUTIC EXERCISES TO DEVELOP STRENGTH AND ENDURANCE, RANGE OF MOTION AND FLEXIBILITY 2015 DoD THERAPEUTIC PROCEDURE, 1 OR MORE AREAS, EACH 15 MINUTES; THERAPEUTIC EXERCISES TO DEVELOP STRENGTH AND ENDURANCE, RANGE OF MOTION AND FLEXIBILITY 2015 DoD THERAPEUTIC PROCEDURE, 1 OR MORE AREAS, EACH 15 MINUTES; THERAPEUTIC EXERCISES TO DEVELOP STRENGTH AND ENDURANCE, RANGE OF MOTION AND FLEXIBILITY 2015 [facility] THERAPEUTIC PROCEDURE, 1 OR MORE AREAS, EACH 15 MINUTES; THERAPEUTIC EXERCISES TO DEVELOP STRENGTH AND ENDURANCE, RANGE OF MOTION AND FLEXIBILITY 2015 DoD THERAPEUTIC PROCEDURE, 1 OR MORE AREAS, EACH 15 MINUTES; THERAPEUTIC EXERCISES TO DEVELOP STRENGTH AND ENDURANCE, RANGE OF MOTION AND FLEXIBILITY 2015 DoD THERAPEUTIC PROCEDURE, 1 OR MORE AREAS, EACH 15 MINUTES; THERAPEUTIC EXERCISES TO DEVELOP STRENGTH AND ENDURANCE, RANGE OF MOTION AND FLEXIBILITY 2015 DoD THERAPEUTIC PROCEDURE, 1 OR MORE AREAS, EACH 15 MINUTES; THERAPEUTIC EXERCISES TO DEVELOP STRENGTH AND ENDURANCE, RANGE OF MOTION AND FLEXIBILITY 2015 DoD NEEDLE, STERILE, ANY SIZE, EACH 2015 [facility] THERAPEUTIC PROCEDURE, 1 OR MORE AREAS, EACH 15 MINUTES; AQUATIC THERAPY WITH THERAPEUTIC EXERCISES 2015 [facility] THERAPEUTIC PROCEDURE, 1 OR MORE AREAS, EACH 15 MINUTES; THERAPEUTIC EXERCISES TO DEVELOP STRENGTH AND ENDURANCE, RANGE OF MOTION AND FLEXIBILITY 2015 [facility] PURE TONE AUDIOMETRY (THRESHOLD); AIR ONLY 2015 [facility] NEEDLE, STERILE, ANY SIZE, EACH 2015 [facility] THERAPEUTIC PROCEDURE, 1 OR MORE AREAS, EACH 15 MINUTES; THERAPEUTIC EXERCISES TO DEVELOP STRENGTH AND ENDURANCE, RANGE OF MOTION AND FLEXIBILITY 2015 [facility] MANUAL THERAPY TECHNIQUES (EG, MOBILIZATION/ MANIPULATION, MANUAL LYMPHATIC DRAINAGE, MANUAL TRACTION), 1 OR MORE REGIONS, EACH 15 MINUTES 2014 [facility] MANUAL THERAPY TECHNIQUES (EG, MOBILIZATION/ MANIPULATION, MANUAL LYMPHATIC DRAINAGE, MANUAL TRACTION), 1 OR MORE REGIONS, EACH 15 MINUTES 2014 [facility] ARTHROCENTESIS, ASPIRATION AND/OR INJECTION, MAJOR JOINT OR BURSA (EG, SHOULDER, HIP, KNEE, SUBACROMIAL BURSA); WITHOUT ULTRASOUND GUIDANCE 2014 [facility] MANUAL THERAPY TECHNIQUES (EG, MOBILIZATION/ MANIPULATION, MANUAL LYMPHATIC DRAINAGE, MANUAL TRACTION), 1 OR MORE REGIONS, EACH 15 MINUTES 2014 [facility] MANUAL THERAPY TECHNIQUES (EG, MOBILIZATION/ MANIPULATION, MANUAL LYMPHATIC DRAINAGE, MANUAL TRACTION), 1 OR MORE REGIONS, EACH 15 MINUTES 2014 [facility] MANUAL THERAPY TECHNIQUES (EG, MOBILIZATION/ MANIPULATION, MANUAL LYMPHATIC DRAINAGE, MANUAL TRACTION), 1 OR MORE REGIONS, EACH 15 MINUTES 2014 [facility] NEEDLE, STERILE, ANY SIZE, EACH 2014 [facility] ATHLETIC TRAINING EVALUATION 2014 [facility] ATHLETIC TRAINING EVALUATION 2014 [facility] NEUROPSYCHOLOGICAL TESTING (EG, [place] CARD SORTING TEST), ADMINISTERED BY A COMPUTER, WITH QUALIFIED HEALTH CLINICAL REHABILITATION COORDINATOR INTERPRETATION AND REPORT 2014 [facility] PSYCHIATRIC EVALUATION OF HOSPITAL RECORDS, OTHER PSYCHIATRIC REPORTS, PSYCHOMETRIC AND/OR PROJECTIVE TESTS, AND OTHER ACCUMULATED DATA FOR MEDICALDIAGNOSTIC PURPOSES 2014 [facility] VIS FUNCT SCREEN,AUTOMAT/SEMI- AUTOMAT BILAT QUANT DETERM VISUAL ACUITY,OCULAR ALIGN,COLOR VISION,PSEUDOISOCHRO MAT PLATES,& FIELD VIS (MAY INC ALL/SOME SCRN DETERM FOR CONTRAST SENSITIV,VIS UND GLARE) 2014 [facility] Phys Therapy Education Self Care Training - Per 15 Minutes Phys Therapy Education Self Care Training - Per 15 Minutes [id number] 2008 MOLINA JOLLY PT A e ment Kinetic Training PT Assessment Kinetic Training [id number] 2008 MOLINA JOLLY Biofeedback Training By Any Modality Biofeedback Training By Any Modality 11545 2008 MOLINA JOLLY Physical Therapy Neuromuscular Re-education Physical Therapy Neuromuscular Re-education 55739 2008 MOLINA JOLLY A isted Exercises [place] 91989 2008 MOLINA JOLLY Physical Therapy Service Evaluation Physical Therapy Service Evaluation 21035 2008 SHERRIE TINAJERO PT A e ment Kinetic Training PT Assessment Kinetic Training [id number] 2008 MOLINA JOLLY Modalities Cryotherapy Cold Packs Modalities Cryotherapy Cold Packs 88010 2008 MOLINA JOLLY Physical Therapy Neuromuscular Re-education Physical Therapy Neuromuscular Re-education 64316 2008 MOLINA JOLLY A isted Exercises [place] [id number] 2008 MOLINA JOLLY Tonometry Tonometry 85718 2008 SHANA GONZALEZ A isted Exercises [place] 285[address] 2008 SHERRIE TINAJERO Physical Therapy Service Evaluation Physical Therapy Service Evaluation 83150 2008 SHERRIE TINAJERO Psychiatric Diagnostic Evaluation Review of Records and Reports Psychiatric Diagnostic Evaluation Review of Records and Reports 11676 2008 ISAI SMITH [facility] Tonometry Tonometry 82032 2007 FERN CRUZ [facility] Psychiatric Diagnostic Evaluation Comprehensive Examination Psychiatric Diagnostic Evaluation Comprehensive Examination [id number] 2007 CANDICE GUTIERREZ Psychologic Testing And Report Administered By Physician Psychologic Testing And Report Administered By Physician [id number] 2007 CANDICE GUTIERREZ Psychologic Testing And Report Administered By Weed Sprayer Psychologic Testing And Report Administered By Weed Sprayer [id number] 2007 CANDICE GUTIERREZ Psychologic Testing And Report Administered By Computer Psychologic Testing And Report Administered By Computer [id number] 2007 CANDICE GUTIERREZ Threshold Audiogram (Pure Tone) Threshold Audiogram (Pure Tone) 43439 2006 JUAN OBRIEN [facility] Visual Function Screening Visual Function Screening 47552 2006 JUAN OBRIEN Typhoid Vaccine Vi Capsular Polysaccharide, For Intramus Use Typhoid Vaccine Vi Capsular Polysaccharide, For Intramus Use 33212 2006 CASEY RONDON Immunization Administration By Injection, One Vaccine Immunization Administration By Injection, One Vaccine 06599 2006 CASEY RONDON Immunization Administration By Injection, One Vaccine Immunization Administration By Injection, One Vaccine 17956 2005 NIMESH COSTA [facility] Influenza Virus Vaccine Intranasal Live Attenuated 2005 NIMESH COSTA Services Provided On An Emergency Basis In The Office 2005 DELMER DEVLIN Visual Function Screening Visual Function Screening 35251 2005 DELMER DEVLIN Threshold Audiogram (Pure Tone) Threshold Audiogram (Pure Tone) 54257 2005 DELMER DEVLIN Secondary Closure Of Surgical Wound Secondary Closure Of Surgical Wound 77138 2005 DELMER DEVLIN [facility] Wound Care Debridement Non-Selective 2005 DELMER DEVLIN [facility] Repair Of Superficial Wound External Genitalia .1 to 2.5 cm Repair Of Superficial Wound External Genitalia .1 to 2.5 cm 74556 2005 DELMER DEVLIN Mobilization Soft Ti ue Mobilization Soft Tissue 13503 2018 FREDO GARCIA 23 mins of tx [facility] Modalities Vasopneumatic Device Modalities Vasopneumatic Device 96232 2018 FREDO GARCIA BFR DoD Physical Therapy: ___ Se ion Segments, 15 Minutes Each Physical Therapy: ___ Session Segments, 15 Minutes Each 73847 2018 FREDO GARCIA 30 mins of tx DoD Threshold Audiogram (Pure Tone) Automated Threshold Audiogram (Pure Tone) Automated [id number] 2018 EKTA PAYTON [facility] Patient education, not otherwise cla ified, non-physician provider, group, per se ion 2018 EKTA PAYTON [facility] Modalities Vasopneumatic Device Modalities Vasopneumatic Device 90287 2018 FREDO GARCIA 25 mins of tx DoD Modalities Cryotherapy Cold Packs Modalities Cryotherapy Cold Packs 36624 2018 FREDO GARCIA 10 mins of tx DoD Physical Therapy: ___ Se ion Segments, 15 Minutes Each Physical Therapy: ___ Session Segments, 15 Minutes Each 27099 2018 FREDO GARCIA 45 mins of tx DoD Modalities Vasopneumatic Device Modalities Vasopneumatic Device 90010 2018 VIN DAVIS [facility] Modalities Cryotherapy Cold Packs Modalities Cryotherapy Cold Packs 02945 2018 VIN DAVIS [facility] Physical Therapy: ___ Se ion Segments, 15 Minutes Each Physical Therapy: ___ Session Segments, 15 Minutes Each 83711 2018 VIN DAVIS [facility] Physical Therapy Mobilization Joint Physical Therapy Mobilization Joint 36401 2018 VIN DAVIS [facility] Modalities Vasopneumatic Device Modalities Vasopneumatic Device 16481 2018 VIN DAVIS [facility] Modalities Cryotherapy Cold Packs Modalities Cryotherapy Cold Packs 02992 2018 VIN DAVIS [facility] Physical Therapy: ___ Se ion Segments, 15 Minutes Each Physical Therapy: ___ Session Segments, 15 Minutes Each 25842 2018 VIN DAVIS DoD Physical Therapy Mobilization Joint Physical Therapy Mobilization Joint 26048 2018 VIN DAVIS [facility] Physical Therapy: ___ Se ion Segments, 15 Minutes Each Physical Therapy: ___ Session Segments, 15 Minutes Each 28774 2018 VIN DAVIS DoD Physical Therapy Mobilization Joint Physical Therapy Mobilization Joint 38997 2018 VIN DAVIS DoD Modalities Vasopneumatic Device Modalities Vasopneumatic Device 38698 2018 VIN DAVIS DoD Modalities Cryotherapy Cold Packs Modalities Cryotherapy Cold Packs 02029 2018 VIN DAVIS DoD Physical Therapy: ___ Se ion Segments, 15 Minutes Each Physical Therapy: ___ Session Segments, 15 Minutes Each 84249 2018 VIN DAVIS DoD Physical Therapy Mobilization Joint Physical Therapy Mobilization Joint 42685 2018 VIN DAVIS DoD Modalities Cryotherapy Cold Packs Modalities Cryotherapy Cold Packs 51039 2018 VIN DAVIS DoD Modalities Vasopneumatic Device Modalities Vasopneumatic Device 78626 2018 VIN DAVIS DoD Physical Therapy: ___ Se ion Segments, 15 Minutes Each Physical Therapy: ___ Session Segments, 15 Minutes Each 65128 2018 VIN DAVIS DoD Osteopathic Manip Treatment (OMT) 1-2 Body Regions Involved Osteopathic Manip Treatment (OMT) 1-2 Body Regions Involved 40274 2018 VIN DAVIS DoD Physical Therapy Mobilization Joint Physical Therapy Mobilization Joint 26862 2018 VIN DAVIS DoD Modalities Cryotherapy Cold Packs Modalities Cryotherapy Cold Packs 36249 2018 VIN DAVIS DoD Modalities Vasopneumatic Device Modalities Vasopneumatic Device 77201 2018 VIN DAVIS DoD Modalities Cryotherapy Cold Packs Modalities Cryotherapy Cold Packs 18762 2018 VIN DAVIS DoD Osteopathic Manip Treatment (OMT) 1-2 Body Regions Involved Osteopathic Manip Treatment (OMT) 1-2 Body Regions Involved 72464 2018 VIN DAVIS DoD Physical Therapy: ___ Se ion Segments, 15 Minutes Each Physical Therapy: ___ Session Segments, 15 Minutes Each 42197 2018 VIN DAVIS DoD Physical Therapy Mobilization Joint Physical Therapy Mobilization Joint 07561 2018 VIN DAVIS DoD Modalities Vasopneumatic Device Modalities Vasopneumatic Device 02986 2018 VIN DAVIS DoD Modalities Cryotherapy Cold Packs Modalities Cryotherapy Cold Packs 37580 2018 VIN DAVIS [facility] Physical Therapy: ___ Se ion Segments, 15 Minutes Each Physical Therapy: ___ Session Segments, 15 Minutes Each 74753 2018 VIN DAVIS [facility] Osteopathic Manip Treatment (OMT) 1-2 Body Regions Involved Osteopathic Manip Treatment (OMT) 1-2 Body Regions Involved 59819 2018 VIN DAVIS [facility] Physical Therapy Mobilization Joint Physical Therapy Mobilization Joint 09254 2018 VIN DAVIS [facility] Modalities Vasopneumatic Device Modalities Vasopneumatic Device 36879 2018 VIN DAVIS [facility] Osteopathic Manip Treatment (OMT) 1-2 Body Regions Involved Osteopathic Manip Treatment (OMT) 1-2 Body Regions Involved 45598 2018 VIN DAVIS [facility] Physical or manipulative therapy performed for maintenance rather than yazidi 2018 VIN DAVIS [facility] Needle, sterile, any size, each 2018 VIN DAVIS [facility] Physical Therapy Service Evaluation High Complexity 2018 VIN DAVIS [facility] Modalities Vasopneumatic Device Modalities Vasopneumatic Device 44240 2018 VIN DAVIS [facility] Osteopathic Manip Treatment (OMT) 1-2 Body Regions Involved Osteopathic Manip Treatment (OMT) 1-2 Body Regions Involved 27645 2018 FREDO GARCIA [facility] Athletic Training Evaluation Low Complexity Athletic Training Evaluation Low Complexity 22665 2018 FREDO GARCIA [facility] Psychotherapy Individual Approximately 60 Minutes Psychotherapy Individual Approximately 60 Minutes 99494 2018 BRIGID ROMERO [facility] Modalities Iontophoresis Modalities Iontophoresis 18276 2018 VIN DAVIS [facility] Physical Therapy Service Evaluation Moderate Complexity Physical Therapy Service Evaluation Moderate Complexity 08137 2018 VIN DAVIS [facility] Psychometric Emotional / Behavioral A e ment Psychometric Emotional / Behavioral Assessment 21019 2018 JESUS WALKER [facility] Clinical Social Work Individual Outpatient Counseling 45 Minutes Clinical Social Work Individual Outpatient Counseling 45 Minutes 07311 2018 JESUS WALKER [facility] Psychiatric Diagnostic Evaluation Review of Records and Reports Psychiatric Diagnostic Evaluation Review of Records and Reports 32633 2017 ARMANDO KELLEY Psychometric Neuropsych Testing Battery Admin By Computer Psychometric Neuropsych Testing Battery Admin By Computer 76295 2017 ARMANDO KELLEY Psychiatric Diagnostic Evaluation Review of Records and Reports Psychiatric Diagnostic Evaluation Review of Records and Reports 58872 2017 CATHY MIRANDA [place] DoD Athletic Training Re-evaluation Athletic Training Re-evaluation 17116 2017 FREDO GARCIA 15 mins for R elbow 15 mins for low back DoD Needle, sterile, any size, each 2017 FREDO GARCIA Dry [place] DoD Physical or manipulative therapy performed for maintenance rather than yazidi 2017 FREDO GARCIA IDN [id number] DoD Mobilization Soft Ti ue Mobilization Soft Tissue 40708 2017 FREDO GARCIA 10 mins of [employer] DoD Physical Therapy: ___ Se ion Segments, 15 Minutes Each Physical Therapy: ___ Session Segments, 15 Minutes Each 78069 2017 FREDO GARCIA 10 mins of tx DoD Athletic Training Evaluation Moderate Complexity Athletic Training Evaluation Moderate Complexity 63374 2017 FREDO GARCIA DoD Mobilization Soft Ti ue Mobilization Soft Tissue 14231 2017 FREDO GARCIA 10 mins of tx DoD Modalities Ultrasound Modalities Ultrasound 06837 2017 FREDO GARCIA 10 mins of tx DoD Modalities Electrical Stimulation Unattended Modalities Electrical Stimulation Unattended 61520 2017 FREDO GARCIA 10 mins of tx DoD Physical Therapy: ___ Se ion Segments, 15 Minutes Each Physical Therapy: ___ Session Segments, 15 Minutes Each 28562 2017 FREDO GARCIA 15 mins of tx DoD Mobilization Soft Ti ue Mobilization Soft Tissue 51473 2017 FREDO GARCIA 20 mins of tx DoD Modalities Ultrasound Modalities Ultrasound 48073 2017 FREDO GARCIA 10 mins of tx DoD Modalities Electrical Stimulation Unattended Modalities Electrical Stimulation Unattended 75921 2017 FREDO GARCIA 10mins of tx DoD Physical Therapy: ___ Se ion Segments, 15 Minutes Each Physical Therapy: ___ Session Segments, 15 Minutes Each 70039 2017 FREDO GARCIA 15 mins of tx DoD Modalities Iontophoresis Modalities Iontophoresis 15141 2017 FREDO GARCIA Area prepped and sanitized. Disposable patch placed and instructions to throw away after 2.5 hrs. SM in understanding. DoD Modalities Electrical Stimulation Unattended Modalities Electrical Stimulation Unattended 78022 2017 FREDO GARCIA 10 mins of tens unit DoD Needle, sterile, any size, each 2017 FREDO GARCIA Dry [place] DoD Physical or manipulative therapy performed for maintenance rather than yazidi 2017 FREDO GARCIA DoD Physical Therapy: ___ Se ion Segments, 15 Minutes Each Physical Therapy: ___ Session Segments, 15 Minutes Each 16612 2017 FREDO GARCIA 15 mins of tx DoD Modalities Electrical Stimulation Unattended Modalities Electrical Stimulation Unattended 50407 2017 FREDO GARCIA 10 mins attached to dry needles DoD Modalities Cryotherapy Cold Packs Modalities Cryotherapy Cold Packs 08804 2017 FREDO GARCIA 10 mins of tx DoD Needle, sterile, any size, each 2017 FREDO GARCIA Dry [place] DoD Acupunct One Or More [place] W/O Stimulation Initial 15 Min Acupunct One Or More [place] W/O Stimulation Initial 15 Min 17295 KWAN WHEAT DoD Modalities Electrical Stimulation Unattended Modalities Electrical Stimulation Unattended 58641 FREDO GARCIA 10 mins of tx DoD Mobilization Soft Ti ue Mobilization Soft Tissue 55801 FREDO GARCIA 8 mins of tx DoD Physical or manipulative therapy performed for maintenance rather than yazidi FREDO GARCIAN DoD Needle, sterile, any size, each FREDO GARCIA 50 mm needles DoD Modalities Electrical Stimulation Unattended Modalities Electrical Stimulation Unattended 36771 FREDO GARCIA 10 mins of tx connected to dry needles DoD Physical or manipulative therapy performed for maintenance rather than yazidi FREDO GARCIA R forearm extensors DoD Needle, sterile, any size, each FREDO GARCIA 40 mm needles DoD Physical Therapy: ___ Se ion Segments, 15 Minutes Each Physical Therapy: ___ Session Segments, 15 Minutes Each 41456 FREDO GARCIA 15 mins of tx DoD Modalities Vasopneumatic Device Modalities Vasopneumatic Device 39553 FREDO GARCIA 15 mins BFR DoD Mobilization Soft Ti ue Mobilization Soft Tissue 39495 FREDO GARCIA 10 mins of tx DoD Modalities Vasopneumatic Device Modalities Vasopneumatic Device 07100 FREDO GARCIA 15 mins of tx DoD Physical or manipulative therapy performed for maintenance rather than yazidi FREDO GARCIA IDN R forearm DoD Needle, sterile, any size, each FREDO GARCIA 50 mm dry needles DoD Modalities Electrical Stimulation Unattended Modalities Electrical Stimulation Unattended 52571 FREDO GARCIA 10 mins tens attached to dry needles DoD Non-Physician Phone Call To Patient/Provider Brief (5-10min) Non-Physician Phone Call To Patient/Provider Brief (5-10min) 13835 YARI MA DoD Prolotherapy DYKES, JOCELIN N W DoD Modalities Cryotherapy Cold Packs Modalities Cryotherapy Cold Packs 86028 JT QUINONEZ 20 minutes of game ready, no compression DoD Modalities Electrical Stimulation Attended Each 15 Minutes Modalities Electrical Stimulation Attended Each 15 Minutes 86344 JT QUINONEZ 20 minutes of Pre-mod on both medial and lateral aspect of the ankle DoD Physical Therapy Gait Training Physical Therapy Gait Training 71615 JT QUINONEZ 8 minutes, training SM in using crutches DoD Taping Ankle Taping Ankle 03696 JT QUINONEZ Pt returned later for KT for swelling DoD Physical or manipulative therapy performed for maintenance rather than yazidi 2017 FREDO GARCIA IDN extensors DoD Physical Therapy: ___ Se ion Segments, 15 Minutes Each Physical Therapy: ___ Session Segments, 15 Minutes Each 10385 2017 FREDO GARCIA 15 mins of tx DoD Modalities Cryotherapy Cold Packs Modalities Cryotherapy Cold Packs 64059 2017 FREDO GARCIA 10 mins of tx DoD Physical Therapy: ___ Se ion Segments, 15 Minutes Each Physical Therapy: ___ Session Segments, 15 Minutes Each 63948 2017 FREDO GARCIA 8 mins of tx DoD Modalities Electrical Stimulation Unattended Modalities Electrical Stimulation Unattended 11386 2017 FREDO GARCIA 10 mins of tens unit attached to dry needles DoD Needle, sterile, any size, each 2017 FREDO GARCIA Dry [place] DoD Physical or manipulative therapy performed for maintenance rather than yazidi 2017 FREDO GARCIA left extensors DoD Modalities Electrical Stimulation Unattended Modalities Electrical Stimulation Unattended 96490 2017 FREDO GARCIA 10 mins of tx DoD Needle, sterile, any size, each 2017 FREDO GARCIA Dry [place] DoD Physical or manipulative therapy performed for maintenance rather than yazidi 2017 FREDO GARCIA DoD Physical Therapy: ___ Se ion Segments, 15 Minutes Each Physical Therapy: ___ Session Segments, 15 Minutes Each 74204 2017 FREDO GARCIA 10 mins of tx DoD Needle, sterile, any size, each 2017 FREDO GARCIA Dry needles DoD Physical or manipulative therapy performed for maintenance rather than yazidi 2017 FREDO GARCIA DoD Mobilization Soft Ti ue Mobilization Soft Tissue 58092 2017 FREDO GARCIA 10 mins of tx DoD Physical Therapy: ___ Se ion Segments, 15 Minutes Each Physical Therapy: ___ Session Segments, 15 Minutes Each 96202 2017 FREDO GARCIA 10 mins of tx DoD Physical Therapy Mobilization Joint Physical Therapy Mobilization Joint 64136 2016 VIN DAVIS [facility] Modalities Cryotherapy Cold Packs Modalities Cryotherapy Cold Packs 57412 2016 VIN DAVIS [facility] Physical Therapy Service Evaluation Moderate Complexity Physical Therapy Service Evaluation Moderate Complexity 81923 2016 VIN DAVIS DoD Needle, sterile, any size, each 2016 VIN DAVIS [facility] Physical or manipulative therapy performed for maintenance rather than yazidi 2016 VIN DAVIS [facility] Modalities Cryotherapy Cold Packs Modalities Cryotherapy Cold Packs 45475 2016 FREDO GARCIA 15 mins of tx DoD Mobilization Soft Ti ue Mobilization Soft Tissue 36264 2016 FREDO GARCIA 8 mins of tx DoD Needle, sterile, any size, each 2016 FREDO GARCIA Dry [place] DoD Physical or manipulative therapy performed for maintenance rather than yazidi 2016 FREDO GARCIA IDN DoD Athletic Training Evaluation Low Complexity Athletic Training Evaluation Low Complexity 73495 2016 FREDO GARCIA [facility] Needle, sterile, any size, each 2016 FREDO GARCIA Dry [place] [facility] Physical or manipulative therapy performed for maintenance rather than yazidi 2016 FREDO GARCIA IDN [id number] [facility] Modalities Vasopneumatic Device Modalities Vasopneumatic Device 94570 2016 FREDO GARCIA 10 mins of normatec pants [facility] Wound / Incision Care Use Of Wet-To-Dry Gonzalo ings Prescribed / Recommended Wound / Incision Care Use Of Wet-To-Dry Dressings Prescribed / Recommended [id number] 2016 MARTI BARBOSA [facility] Psychiatric Therapy Environmental Intervention Psychiatric Therapy Environmental Intervention 88948 2016 BESSIE MONTENEGRO [facility] Psychiatric Diagnostic Evaluation Comprehensive Examination Interactive Psychiatric Diagnostic Evaluation Comprehensive Examination Interactive 11487 2016 NICK BECKETT [facility] Physical Therapy: ___ Se ion Segments, 15 Minutes Each Physical Therapy: ___ Session Segments, 15 Minutes Each 35219 2016 FREDO GARCIA 30 mins of tx [facility] Extensive Color Vision Testing Extensive Color Vision Testing 83477 2016 JOCY ARAUOJ [facility] Screening Test Of Visual Acuity, Quantitative, Bilateral Screening Test Of Visual Acuity, Quantitative, Bilateral 23367 2016 JOCY ARAUJO [facility] Threshold Audiogram (Pure Tone) Threshold Audiogram (Pure Tone) 07775 2016 JOCY ARAUJO [facility] Mobilization Soft Ti ue Mobilization Soft Tissue 28193 2016 FREDO GARCIA 15 mins of tx [facility] Physical Therapy: ___ Se ion Segments, 15 Minutes Each Physical Therapy: ___ Session Segments, 15 Minutes Each 13629 2016 FREDO GARCIA 30 mins of tx DoD Mobilization Soft Ti ue Mobilization Soft Tissue 65814 2016 FREDO GARCIA 15 mins of tx DoD Physical Therapy: ___ Se ion Segments, 15 Minutes Each Physical Therapy: ___ Session Segments, 15 Minutes Each 47620 2016 FREDO GARCIA 24 mins of tx DoD Physical Therapy: ___ Se ion Segments, 15 Minutes Each Physical Therapy: ___ Session Segments, 15 Minutes Each 95358 2016 FREDO GARCIA 30 mins of tx DoD Threshold Audiogram (Pure Tone) Automated Threshold Audiogram (Pure Tone) Automated [id number] 2016 SAV GO [facility] Patient education, not otherwise cla ified, non-physician provider, group, per se ion 2016 SAV GO [facility] Mobilization Soft Ti ue Mobilization Soft Tissue 03117 2016 FREDO GARCIA 10 mins of tx DoD Physical Therapy: ___ Se ion Segments, 15 Minutes Each Physical Therapy: ___ Session Segments, 15 Minutes Each 68588 2016 FREDO GARCIA 24 mins of tx DoD Mobilization Soft Ti ue Mobilization Soft Tissue 29163 2016 FREDO GARCIA 15 mins of tx DoD Physical Therapy: ___ Se ion Segments, 15 Minutes Each Physical Therapy: ___ Session Segments, 15 Minutes Each 25643 2016 FREDO GARCIA 30 mins of tx DoD Modalities Electrical Stimulation Unattended Modalities Electrical Stimulation Unattended 79762 2016 FREDO GARCIA 10 mins of tx DoD Needle, sterile, any size, each 2016 FREDO GARCIA Dry [place] [facility] Physical or manipulative therapy performed for maintenance rather than yazidi 2016 FREDO GARCIA Integrative Dry Needle [facility] Physical Therapy: ___ Se ion Segments, 15 Minutes Each Physical Therapy: ___ Session Segments, 15 Minutes Each 14675 2016 FREDO GARCIA [facility] Physical Therapy: ___ Se ion Segments, 15 Minutes Each Physical Therapy: ___ Session Segments, 15 Minutes Each 73771 2016 FREDO GARCIA 30 mins of tx DoD Needle, sterile, any size, each 2016 FREDO GARCIA Dry [place] L2-S1 DoD Physical or manipulative therapy performed for maintenance rather than yazidi 2016 FREDO GARCIA Integrative Dry Needle DoD Modalities Electrical Stimulation Unattended Modalities Electrical Stimulation Unattended 58419 2016 FREDO GARCIA 15 mins of tx DoD Physical Therapy: ___ Se ion Segments, 15 Minutes Each Physical Therapy: ___ Session Segments, 15 Minutes Each 44459 2016 FREDO GARCIA 30 mins of tx DoD Physical Therapy: ___ Se ion Segments, 15 Minutes Each Physical Therapy: ___ Session Segments, 15 Minutes Each 73220 2016 FREDO GARCIA 45 mins of tx DoD Physical Therapy: ___ Se ion Segments, 15 Minutes Each Physical Therapy: ___ Session Segments, 15 Minutes Each 08093 2016 FREDO GARCIA 24 mins of tx DoD Needle, sterile, any size, each 2016 FREDO GARCIA Dry [place] DoD Physical or manipulative therapy performed for maintenance rather than yazidi 2016 FREDO GARCIA Integrative Dry Needle DoD Physical Therapy: ___ Se ion Segments, 15 Minutes Each Physical Therapy: ___ Session Segments, 15 Minutes Each 35750 2016 FREDO GARCIA 30 mins of tx DoD Physical Therapy: ___ Se ion Segments, 15 Minutes Each Physical Therapy: ___ Session Segments, 15 Minutes Each 89863 2016 FREDO GARCIA 24 mins of tx DoD Osteopathic Manip Treatment (OMT) 3-4 Body Regions Involved Osteopathic Manip Treatment (OMT) 3-4 Body Regions Involved 23277 2016 KWAN WHEAT [facility] Osteopathic Manip Treatment (OMT) 3-4 Body Regions Involved Osteopathic Manip Treatment (OMT) 3-4 Body Regions Involved 93511 2016 KWAN WHEAT [facility] Osteopathic Manip Treatment (OMT) 1-2 Body Regions Involved Osteopathic Manip Treatment (OMT) 1-2 Body Regions Involved 35492 2015 FREDO GARCIA Lumbar [facility] Physical Therapy: ___ Se ion Segments, 15 Minutes Each Physical Therapy: ___ Session Segments, 15 Minutes Each 47791 2015 FREDO GARCIA 30 mins of tx [facility] Modalities Iontophoresis Modalities Iontophoresis 59540 2015 FREDO GARCIA Disposable Ionto patch. Area sterilized before placed on SM [facility] Needle, sterile, any size, each 2015 FREDO GARCIA Dry needles [facility] Physical or manipulative therapy performed for maintenance rather than yazidi 2015 FREDO GARCIA Integrative Dry Needle [facility] Mobilization Soft Ti ue Mobilization Soft Tissue 85918 2015 FREDO GARCIA 10 mins of tx [facility] Athletic Training Evaluation Athletic Training Evaluation 86302 2015 FREDO GARCIA [facility] Psychometric Emotional / Behavioral A e ment Psychometric Emotional / Behavioral Assessment 84508 2015 JOCY ARAUJO S [facility] Psychometric Neuropsych Testing Battery Admin By Computer Psychometric Neuropsych Testing Battery Admin By Computer 62732 2015 SHAHAB HURLEY [facility] Modalities Cryotherapy Cold Packs Modalities Cryotherapy Cold Packs 48876 2015 VIN DAVIS [facility] Physical Therapy Mobilization Joint Physical Therapy Mobilization Joint 30289 2015 VIN DAVIS [facility] Osteopathic Manip Treatment (OMT) 1-2 Body Regions Involved Osteopathic Manip Treatment (OMT) 1-2 Body Regions Involved 94350 2015 VIN DAVIS [facility] Physical or manipulative therapy performed for maintenance rather than yazidi 2015 VIN DAVIS [facility] Needle, sterile, any size, each 2015 VIN DAVIS [facility] Physical Therapy Service Evaluation Physical Therapy Service Evaluation 59014 2015 VIN DAVIS [facility] Threshold Audiogram (Pure Tone) Automated Threshold Audiogram (Pure Tone) Automated [id number] 2015 EKTA PAYTON [facility] Patient education, not otherwise cla ified, non-physician provider, group, per se ion 2015 EKTA PAYTON [facility] Mobilization Soft Ti ue Mobilization Soft Tissue 77628 2015 FREDO GARCIA Needle, sterile, any size, each 2015 FREDO GARCIA Physical or manipulative therapy performed for maintenance rather than yazidi 2015 FREDO GARCIA Osteopathic Manip Treatment (OMT) 1-2 Body Regions Involved Osteopathic Manip Treatment (OMT) 1-2 Body Regions Involved 34411 2015 FREDO GARCIA Needle, sterile, any size, each 2015 FREDO GARCIA 50mm needles Kayleigh Physical or manipulative therapy performed for maintenance rather than yazidi 2015 FREDO GARCIA Integrative Dry Needle [facility] Physical Therapy Service Evaluation Physical Therapy Service Evaluation [id number] 2015 FREDO GARCIA Modalities Cryotherapy Cold Packs Modalities Cryotherapy Cold Packs 62997 2015 FREDO GARCIA Mobilization Soft Ti ue Mobilization Soft Tissue 87334 2015 FREDO GARCIA Needle, sterile, any size, each 2015 FREDO GARCIA 60 ml needles Kayleigh Physical or manipulative therapy performed for maintenance rather than yazidi 2015 FREDO GARCIA Integrative Dry Needle [facility] Physical Therapy: ___ Se ion Segments, 15 Minutes Each Physical Therapy: ___ Session Segments, 15 Minutes Each [id number] 2015 FREDO GARCIA 45 mins of tx DoD Physical Therapy: ___ Se ion Segments, 15 Minutes Each Physical Therapy: ___ Session Segments, 15 Minutes Each [id number] 2015 FREDO GARCIA [facility] Physical Therapy: ___ Se ion Segments, 15 Minutes Each Physical Therapy: ___ Session Segments, 15 Minutes Each [id number] 2015 FREDO GARCIA 1 hr and 15 mins of tx DoD Physical Therapy: ___ Se ion Segments, 15 Minutes Each Physical Therapy: ___ Session Segments, 15 Minutes Each [id number] 2015 FREDO GARCIA 70 mins of tx DoD Physical Therapy: ___ Se ion Segments, 15 Minutes Each Physical Therapy: ___ Session Segments, 15 Minutes Each [id number] 2015 FREDO GARCIA 40 mins of tx DoD Physical Therapy: ___ Se ion Segments, 15 Minutes Each Physical Therapy: ___ Session Segments, 15 Minutes Each [id number] 2015 FREDO GARCIA 40 mins of tx DoD Physical Therapy: ___ Se ion Segments, 15 Minutes Each Physical Therapy: ___ Session Segments, 15 Minutes Each [id number] 2015 FREDO GARCIA 30 mins of tx DoD Aquatic Exercises Aquatic Exercises 75589 05/24 FREDO GARCIA 40 mins of tx DoD Needle, sterile, any size, each 2015 FREDO GARCIA 10- 40mm needles 2- 4 inch needles 2- 50mm needles DoD Physical or manipulative therapy performed for maintenance rather than yazidi 2015 FREDO GARCIA Integrative Dry needle DoD Aquatic Exercises Aquatic Exercises 24870 04/20 FREDO GARCIA 30 mins of tx DoD Physical Therapy: ___ Se ion Segments, 15 Minutes Each Physical Therapy: ___ Session Segments, 15 Minutes Each [id number] 2015 FREDO GARCIA 60 mins of tx DoD Threshold Audiogram (Pure Tone) Threshold Audiogram (Pure Tone) [id number] 2015 NAKIA MATHIS Extensive Color Vision Testing Extensive Color Vision Testing 75526 2015 NAKIA MATHIS Screening Test Of Visual Acuity, Quantitative, Bilateral Screening Test Of Visual Acuity, Quantitative, Bilateral 36832 2015 NAKIA MATHIS Threshold Audiogram (Pure Tone) Threshold Audiogram (Pure Tone) 78416 2015 BIENVENIDO LAZO Screening Test Of Visual Acuity, Quantitative, Bilateral Screening Test Of Visual Acuity, Quantitative, Bilateral 99426 2015 BIENVENIDO LAZO Extensive Color Vision Testing Extensive Color Vision Testing 34231 2015 BIENVENIDO LAZO Needle, sterile, any size, each 2015 FREDO GARCIA 40mm needle DoD Physical or manipulative therapy performed for maintenance rather than yazidi 2015 FREDO GARCIA Trigger point dry needle. Area prepped sterilized with no reaction DoD Mobilization Soft Ti ue Mobilization Soft Tissue 93541 2015 FREDO GARCIA 10 mins of [facility] Athletic Training Evaluation Athletic Training Evaluation 87623 2015 FREDO GARCIA [facility] Physical Therapy: ___ Se ion Segments, 15 Minutes Each Physical Therapy: ___ Session Segments, 15 Minutes Each [id number] 2015 FREDO GARCIA 1 hr of rehab DoD Athletic Training Re-evaluation Athletic Training Re-evaluation 72553 2015 FREDO GARCIA DoD Mobilization Soft Ti ue Mobilization Soft Tissue 98403 2014 FREDO GARCIA 10 mins of tx DoD Physical Therapy: ___ Se ion Segments, 15 Minutes Each Physical Therapy: ___ Session Segments, 15 Minutes Each [id number] 2014 FREDO GARCIA 45 mins of tx DoD Physical Therapy: ___ Se ion Segments, 15 Minutes Each Physical Therapy: ___ Session Segments, 15 Minutes Each [id number] 2014 FREDO GARCIA 45 mins of tx [facility] Mobilization Soft Ti ue Mobilization Soft Tissue 27389 2014 FREDO GARCIA 10 mins of tx, [facility] Arthrocentesis Injection Of Subacromial Bursa Arthrocentesis Injection Of Subacromial Bursa 29057 2014 WOLF ADAMS Subacromial Injection Procedure Note After reviewing the risks and benefits of the procedure with the patient, the patient signed the informed consent and all questions were addressed. Once the patient confirmed the injection site, a time out was performed verifying patient's date of , social security number and allergies. Skin was prepped with isopropyl alcohol with multiple cleanings of skin. Using a posterior injection site, 10 ml injection mixture was injected into subacromial space without difficulty. Patient tolerated procedure well. Injection Mixture: Kenalog -40 2 ml Lidocaine 1% plain, 4 ml Marcaine 0.5% plain, 4 ml DoD Physical Therapy: ___ Se ion Segments, 15 Minutes Each Physical Therapy: ___ Session Segments, 15 Minutes Each [id number] 2014 FREDO GARCIA 45 mins of tx DoD Mobilization Soft Ti ue Mobilization Soft Tissue 37321 2014 FREDO GARCIA 10 mins of tx DoD Mobilization Soft Ti ue Mobilization Soft Tissue 82264 2014 FREDO GARCIA 10 mins of tx DoD Physical Therapy: ___ Se ion Segments, 15 Minutes Each Physical Therapy: ___ Session Segments, 15 Minutes Each [id number] 2014 FREDO GARCIA 45 mins of tx DoD Mobilization Soft Ti ue Mobilization Soft Tissue 25202 2014 FREDO GARCIA 15 mins of tx DoD Physical Therapy: ___ Se ion Segments, 15 Minutes Each Physical Therapy: ___ Session Segments, 15 Minutes Each [id number] 2014 FREDO GARCIA 45 mins of tx DoD Needle, sterile, any size, each 2014 FREDO GARCIA 60 ml needles DoD Physical or manipulative therapy performed for maintenance rather than yazidi 2014 FREDO GARCIA Dry needle. Area prepped sterilized with no reaction. Johana back dropped felt with application DoD Mobilization Soft Ti ue Mobilization Soft Tissue 17738 2014 FREDO GARCIA 8 mins of tx DoD Physical Therapy: ___ Se ion Segments, 15 Minutes Each Physical Therapy: ___ Session Segments, 15 Minutes Each 76605 2014 FREDO GARCIA 45 mins of tx DoD Athletic Training Evaluation Athletic Training Evaluation 18211 2014 FREDO GARCIA Left shoulder and neck eval DoD Athletic Training Re-evaluation Athletic Training Re-evaluation 36164 2014 FREDO GARCIA Follow up on R shoulder and low back DoD Athletic Training Evaluation Athletic Training Evaluation 89642 2014 FREDO GARCIA 30 mins of evky DoD Psychiatric Diagnostic Evaluation Review of Records and Reports Psychiatric Diagnostic Evaluation Review of Records and Reports 49972 2014 JITENDRA STANTON [facility] Psychometric Neuropsych Testing Battery Admin By Computer Psychometric Neuropsych Testing Battery Admin By Computer 77422 2014 JITENDRA STANTON [facility] Visual Function Screening Visual Function Screening 10074 2014 BENTON DUNAWAY [facility] Extensive Color Vision Testing Extensive Color Vision Testing 37410 2014 MIKBENTON BRITTON Threshold Audiogram (Pure Tone) Threshold Audiogram (Pure Tone) 40358 2014 BENTON DUNAWAY Psychiatric Diagnostic Evaluation Review of Records and Reports Psychiatric Diagnostic Evaluation Review of Records and Reports 31033 2012 LARRYANTOINETTE WEST Extensive Color Vision Testing Extensive Color Vision Testing 49581 2011 WOLF DASH Screening Test Of Visual Acuity, Quantitative, Bilateral Screening Test Of Visual Acuity, Quantitative, Bilateral 28025 2011 WOLF DASH Determination Of Refractive State Determination Of Refractive State 55582 2011 RITESH NARAYAN Ophthalmological New Patient Start Comprehensive Care Ophthalmological New Patient Start Comprehensive Care 16591 2011 RITESH NARAYAN Chiropractic Manip Treatmt (CMT) Spinal One To Two Regions Chiropractic Manip Treatmt (CMT) Spinal One To Two Regions 38666 2010 BUTCH BETH Modalities Heat Hot Packs Modalities Heat Hot Packs 02923 2010 BUTCH BETH Modalities Electrical Stimulation Unattended Modalities Electrical Stimulation Unattended 72955 2010 BUTCH BETH Chiropractic Manip Treatmt (CMT) Spinal One To Two Regions Chiropractic Manip Treatmt (CMT) Spinal One To Two Regions 59870 2010 BUTCH BETH Modalities Heat Hot Packs Modalities Heat Hot Packs 25254 2010 BUTCH BETH Modalities Electrical Stimulation Unattended Modalities Electrical Stimulation Unattended 16834 2010 BUTCH BETH Mobilization Soft Ti ue Mobilization Soft Tissue 82170 2010 BUTCH BETH Modalities Heat Hot Packs Modalities Heat Hot Packs 13259 2010 BUTCH B[place] Modalities Electrical Stimulation Unattended Modalities Electrical Stimulation Unattended 71935 2010 BUTCH BETH Modalities Heat Hot Packs Modalities Heat Hot Packs 54435 2010 BUTCH B[place] Modalities Electrical Stimulation Unattended Modalities Electrical Stimulation Unattended 71439 2010 BUTCH B[place] Modalities Electrical Stimulation Unattended Modalities Electrical Stimulation Unattended 47306 2010 BUTCH BETH Modalities Heat Hot Packs Modalities Heat Hot Packs 50838 2010 BUTCH BETH Chiropractic Manip Treatmt (CMT) Spinal One To Two Regions Chiropractic Manip Treatmt (CMT) Spinal One To Two Regions 08124 2010 BUTCH BETH Extensive Color Vision Testing Extensive Color Vision Testing 15552 2010 MARIAMA VASQUEZ Screening Test Of Visual Acuity, Quantitative, Bilateral Screening Test Of Visual Acuity, Quantitative, Bilateral 91134 2010 MARIAMA VASQUEZ Modalities Ultrasound Modalities Ultrasound 61160 2010 BUTCH BETH Modalities Electrical Stimulation Modalities Electrical Stimulation 81891 2010 BUTCH B[place] Modalities Heat Hot Packs Modalities Heat Hot Packs 30170 2010 BUTCH B[place] Modalities Electrical Stimulation Unattended Modalities Electrical Stimulation Unattended 95353 2010 BUTCH BETH Chiropractic Manip Treatmt (CMT) Spinal Three To Four Region Chiropractic Manip Treatmt (CMT) Spinal Three To Four Region 39935 2010 BUTCH B[place] Modalities Heat Hot Packs Modalities Heat Hot Packs 22017 2010 BUTCH B[place] Modalities Electrical Stimulation Unattended Modalities Electrical Stimulation Unattended 72717 2010 BUTCH BETH Chiropractic Manip Treatmt (CMT) Spinal One To Two Regions Chiropractic Manip Treatmt (CMT) Spinal One To Two Regions 95670 2010 BUTCH BETH Modalities Heat Hot Packs Modalities Heat Hot Packs 31673 2010 BUTCH BETH Modalities Electrical Stimulation Unattended Modalities Electrical Stimulation Unattended 00223 2010 BUTCH BETH Chiropractic Manip Treatmt (CMT) Spinal One To Two Regions Chiropractic Manip Treatmt (CMT) Spinal One To Two Regions 77025 2010 BUTCH B[place] Modalities Heat Hot Packs Modalities Heat Hot Packs 44049 2010 BUTCH B[place] Modalities Electrical Stimulation Unattended Modalities Electrical Stimulation Unattended 11091 2010 BUTCH BETH Chiropractic Manip Treatmt (CMT) Spinal One To Two Regions Chiropractic Manip Treatmt (CMT) Spinal One To Two Regions 81580 2010 BUTCH BETH [facility] Psychiatric Diagnostic Evaluation Review of Records and Reports Psychiatric Diagnostic Evaluation Review of Records and Reports 34009 2010 ANTOINETTE JUAREZ [facility] Psychiatric Diagnostic Evaluation Review of Records and Reports Psychiatric Diagnostic Evaluation Review of Records and Reports 74570 2010 ANTOINETTE JUAREZ [facility] Screening Test Of Visual Acuity, Quantitative, Bilateral Screening Test Of Visual Acuity, Quantitative, Bilateral 75586 2009 NETO CHRISTIAN [facility] PT A e ment Kinetic Training PT Assessment Kinetic Training 15562 2008 WARRENSTEPHANIE Janie [facility] Physical Therapy Neuromuscular Re-education Physical Therapy Neuromuscular Re-education 27812 2008 BRIANA STEPHANIE Lima [facility] A isted Exercises For ROM Assisted Exercises For ROM 56023 2008 STEPHANIE WARREN Janie [facility] Modalities Heat Hot Packs Modalities Heat Hot Packs 80878 2008 STEPHANIE WARREN Janie Kayleigh Modalities Traction Modalities Traction 85832 2008 WARRENSTEPHANIE Janie [facility] PT A e ment Kinetic Training PT Assessment Kinetic Training 43561 2008 ZAC BRIGHT Patient Training And Self-Care Skills Patient Training And Self-Care Skills 27930 2008 ZAC BRIGHT A isted Exercises For ROM Assisted Exercises For ROM 70230 2008 ZAC BRIGHT Phys Therapy Education Self Care Training - Per 15 Minutes Phys Therapy Education Self Care Training - Per 15 Minutes 93728 2008 SHERRIE TINAJERO [facility] Physical Therapy Service Re-Evaluation Physical Therapy Service Re-Evaluation 03933 2008 SHERRIE TINAJERO [facility] Physical Therapy Service Re-Evaluation Physical Therapy Service Re-Evaluation 30524 2008 SHERRIE TINAJERO Modalities Heat Hot Packs Modalities Heat Hot Packs 25243 2008 SINAN ANTUNEZ Modalities Traction Modalities Traction 95892 2008 SINAN ANTUNEZ Modalities Traction Modalities Traction 57784 2008 SINAN ANTUNEZ Modalities Heat Hot Packs Modalities Heat Hot Packs 47561 2008 WITTRY, SINAN K DoD Modalities Heat Hot Packs Modalities Heat Hot Packs 99021 2008 MOLINA JOLLY [facility] Modalities Traction Modalities Traction 07519 2008 MOLINA JOLLY [facility] Modalities Cryotherapy Cold Packs Modalities Cryotherapy Cold Packs 37818 2008 MELANIA REAVES [facility] Physical Therapy Neuromuscular Re-education Physical Therapy Neuromuscular Re-education 89789 2008 MELANIA REAVES [facility] A isted Exercises For ROM Assisted Exercises For ROM 14281 2008 MELANIA REAVES [facility] Social History Combined list of available smoking, tobacco, and other social history from Department of Defense and Veterans Affairs facilities. 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 [facility] Assessment and Plan Combined list of future care activities from Department of Defense and Veterans Affairs facilities (e.g., assessment and plan notes, appointments, orders, and referrals). Additional future care activities may be listed in the Plan of Care section. 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 SM present for virtual encounter. SM falls short of the age/gender specific CPS IAW USPSTF for colon cancer screening; SM informed during this virtual MHA/PHA; SM vernalized understanding. No profiles, no DLCs. IMR Green.? +WWQ.? 2.?Visual disturbance F/U with Optometry for evaluation. See immediate medical care for abrupt vision changes, double vision, eye pain, severe blurry vision. ? 3.?LBP - Low back pain Continue F/U with pain management and PCM for management. 4.?Knee pain Continue F/U with PCM for management. 5.?Neck pain Continue F/U with pain management and PCM for management. 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 Keep enrollment form if registered, and submit to [facility] for record keeping. F/U with PCM as needed for any medical issues related to exposure.? Audra Wiseman?[facility] [place] Provider Flight Medicine? [employer] [place] GARCIA [place]??[id number] [facility] [phone] ? 02/16/2024 Ambulatory Pharmacy Plan of Care List of future care activities from Department of Veterans Affairs facilities. Additional future care activities may be listed in the Assessment and Plan section. Date/Time Care Activity Care Activity Detail Facili ty 03/28/2024 AMBULATORY - MEDICINE [facility] 04/07/2024 AMBULATORY - PSYCHIATRY AM[facility] [place] PS[facility]C [place]ATRY [facility] [place] [facility] 01/15/2024 Consult Order [facility] Cons Media Relations Manager's Choice [place] Functional Status Combined list of recent functional and cognitive assessments recorded at Department of Defense and [facility] Affairs ([place] Functional Comins Measurement (FIM) Scale: 1 = Total Assistance (Subject = 0% +), 2 = Maximal Assistance (Subject = 25% +), 3 = Moderate Assistance (Subject = 50% +), 4 = Minimal Assistance (Subject = 75% +), 5 = Supervision, 6 = Modified Comins (Device), 7 = Complete Comins (Timely, Safely). Assessment Date/Time Source Assessment Type Assessment Skill Assessment Score Assessment Details No data available for this section
--- OUTSIDE RECORDS SUMMARY | 2024-02-16 07:28 | XMS_ITS | Encounter Summary ---
Author Name [facility] [place] Organization [facility] [place] Address [address] [place] [id number] Support Name Relationship Address Phone BRYANT SRIRAM Next of Kin [address] [place] [address] BRYANT SRIRAM Emergency Contact [address] [place] [address] Selected Encounter This section includes the information on record at [place] for the Encounter. Date/Time Encounter Type Encounter Description Reason Pro vider Source Jun 10, 2023 12:01 AM Outpatient Encounter ADMIN PAT ACTIVTIES (MASNONCT) IHE Encounter Template Text not used by [place] Plan of Treatment: Future Appointments (+ 6 months) and Future Tests (+/- 45 days) The Plan of Treatment section includes future care activities for the patient from all [place] treatmentfacilities. This section includes future appointments and future orders which are active, pending or scheduled. Future Appointments This section includes appointments that were scheduled to occur 6 months from the date of the Encounter, up to a maximum of 20 appointments. The data comes from all [place] treatment facilities. Appointment Date/Time Appointment Type Appointme nt Facility Name Jun 19, 2023 10:00 AM [facility]ULATORY [place]INE [place] [facility] [place] [facility] Jun 23, 2023 08:00 AM AM[facility]ULATORY [place]ICINE [facility] [place] [facility] Jun 24, 2023 08:00 AM AMBULATORY - PSYCHIATRY [facility] July 07, 2023 10:00 AM AMBULATORY - NONE [place] [facility] [place] [facility] July 16, 2023 08:30 AM AMBULATORY - PSYCHIATRY [facility] July 20, 2023 02:00 PM AMBULATORY - MEDICINE [facility] July 21, 2023 10:00 AM [facility] [place] July 22, 2023 12:00 PM AM[facility]ULATORY [facility]INE [facility] [place] July 24, 2023 02:00 PM AM[facility]ULATORY [facility]ICINE [facility] [place] July 31, 2023 10:00 AM AMBULATORY - NONE [facility] [place] [facility] Aug 06, 2023 09:30 AM AM[facility]ULATORY [facility] MEDICINE [facility] [place] Aug 11, 2023 10:00 AM AMBULATORY - [facility]CHIATRY [facility] [place] Sep 11, 2023 08:30 AM AMBULATORY - REHAB MEDICIN E [facility] [place] [facility] Sep 21, 2023 11:00 AM AM[facility]ULATORY [facility] MEDICINE [facility] [place] [facility] Sep 23, 2023 04:00 PM AMBULATORY - REHAB MEDICIN E [facility] [place] [facility] Sep 24, 2023 02:00 PM AMBULATORY - PS[facility]CHIATRY [facility] Sep 25, 2023 08:15 AM AM[facility]ULATORY [facility] MEDICINE [facility] Sep 28, 2023 11:00 AM AMBULATORY - MEDICINE [facility] [place] Oct 01, 2023 03:30 PM AMBULATORY - REHAB MEDICIN E [facility] [place] Oct 05, 2023 11:00 AM AMBULATORY - MEDICINE [facility] [place] Encounter Notes: All associated encounter notes This section contains the clinical notes associated to the Encounter. Date/Time Encounter Note(s) Provider Source Jun 10, 2023 12:01 AM CLINICAL WARNING: LOCAL TITLE: COMMUNICATION AUTHORIZATION STANDARD TITLE: CLINICAL WARNING DATE OF NOTE: JUN 10, 2023@00:01 ENTRY DATE: JUN 11, 2023@06:29:48 AUTHOR: KEISHA GUAMAN COSIGNER: URGENCY: STATUS: COMPLETED Family/Caregiver Name: Primary: SRIRAM HURTADO - SPOUSE Secondary: Tertiary: Authorized Clinic & Topics: All Clinic's & Topics: All Care/Coordination Primary Care: All Care/Coordination Mental Health: All Care/Coordination Specialty Care: All Care/Coordination 7332 Protected Info: [ ] Drug Abuse [ ] Alcohol Abuse [ ] HIV [ ] Sickle Cell Expiration: Date: [ ] At [X] Through [ ] At end of care // LUIS CARLOS GUAMAN [employer] Signed: 06/11/2023 06:30 KEISHA GUAMAN [facility]
--- OUTSIDE RECORDS SUMMARY | 2024-02-16 07:28 | XMS_ITS ---
Author Name [facility] [place] Organization [place] Address [address] [place] [address] Support Name Relationship Address Phone HURTADOQING MAZARIEGOSHER Next of Kin [address] [place] [address] BRYANTQINGSRIRAM Emergency Contact [address] [place] [address] Selected Encounter This section includes the information on record at [place] for the Encounter. Date/Time Encounter Type Encounter Description Reason Pro vider Source Jun 11, 2023 03:32 PM Outpatient Encounter PRIMARY CARE/MEDICINE IHE Encounter Template Text not used by [place] Plan of Treatment: Future Appointments (+ 6 months) and Future Tests (+/- 45 days) The Plan of Treatment section includes future care activities for the patient from all [place] treatmentfacilities. This section includes future appointments and future orders which are active, pending or scheduled. Future Appointments This section includes appointments that were scheduled to occur 6 months from the date of the Encounter, up to a maximum of 20 appointments. The data comes from all [place] treatment facilities. Appointment Date/Time Appointment Type Appointme nt Facility Name Jun 19, 2023 10:00 AM AM[place]UL[place]ORY [place] [facility] [place] [facility] Jun 23, 2023 08:00 AM AM[place]ORY [place] [facility] [place] [facility] Jun 24, 2023 08:00 AM AMBULATORY - PSYCHIATRY [facility] July 07, 2023 10:00 AM AMBULATORY - NONE [place] [facility] [place] [facility] July 16, 2023 08:30 AM AMBULATORY - PSYCHIATRY [facility] July 20, 2023 02:00 PM AMBULATORY - MEDICINE [facility] July 21, 2023 10:00 AM [place]ORY [place] [facility] [place] [facility] July 22, 2023 12:00 PM AM[place]UL[place]ORY - MEDICINE [facility] [place] [facility] July 24, 2023 02:00 PM AMBULATORY - MEDICINE [facility] [place] [facility] July 31, 2023 10:00 AM AMBULATORY - NONE [facility] [place] [facility] Aug 06, 2023 09:30 AM AMBULATORY - MEDICINE [facility] [place] [facility] Aug 11, 2023 10:00 AM AMBULATORY - PSYCHIATRY [facility] [place] [facility] Sep 11, 2023 08:30 AM AMBULATORY - REHAB MEDICIN E [facility] [place] [facility] Sep 21, 2023 11:00 AM AMBULATORY - MEDICINE [facility] [place] [facility] Sep 23, 2023 04:00 PM AMBULATORY - REHAB MEDICIN E [facility] [place] [facility] Sep 24, 2023 02:00 PM AMBULATORY - PS[place]CHIATRY [facility] [place] [facility] Sep 25, 2023 08:15 AM AMBULATORY - MEDICINE [facility] [place] [facility] Sep 28, 2023 11:00 AM AMBULATORY - MEDICINE [facility] [place] [facility] Oct 01, 2023 03:30 PM AMBULATORY - REHAB MEDICIN E [facility] [place] [facility] Oct 05, 2023 11:00 AM AMBULATORY - MEDICINE [facility] [place] [facility] Encounter Notes: All associated encounter notes This section contains the clinical notes associated to the Encounter. Date/Time Encounter Note(s) Provider Source Jun 15, 2023 09:51 AM ADDENDUM: LOCAL TITLE: Addendum STANDARD TITLE: ADDENDUM DATE OF NOTE: JUN 15, 2023@09:51:35 ENTRY DATE: JUN 15, 2023@09:51:36 AUTHOR: MACK STEARNS COSIGNER: URGENCY: STATUS: COMPLETED Separation history and physical exam are typically done by the unit from which the will be from. The [place] does not perform these. /cherri/ MACK STEARNS NP NURSE PRACTITIONER Signed: 06/15/2023 09:52 Receipt Acknowledged By: 06/15/2023 13:15 /cherri/ CLEVE MARY ADVANCE ROLLING ATTENDANT 06/15/2023 16:01 /es/ SRIRAM HUGO LIDDER ROLLING ATTENDANT --- Original Document --- 06/11/23 PATIENT LETTER (B): [facility] [address] [place] [address] [phone] * MACK Cardona HURTADO [address] [place], [place] [address] Date: JUN 11, 2023 Dear : Welcome to patient aligned care team 1 MANAGED SECURITY SALES CONSULTANT (PACT 1 MANAGED SECURITY SALES CONSULTANT) with MANAGED SECURITY SALES CONSULTANT Mack Stearns. Prior to meeting you at your new patient appointment we are requesting some of your past medical history so that we may provide you with the exceptional care you deserve. Please note that it is very helpful to have these documents at least two days prior to your appointment date as the more information we have the better we will be able to meet your needs: * Last History & Physical * Immunization records * Medication list * Diagnosis list * Most recent labs * Diagnostic screens (Colonoscopy, Abdominal Aortic Aneurysm screen, Mammograms, PAPS, etc.) You may either drop the requested records off in person to [address] [place] [address] or you may have them faxed to: [phone] ATTN: PACT 1 MANAGED SECURITY SALES CONSULTANT *Also please complete the enclosed new patient packet and drop it off at our [facility] location: [address] [place] [address]* If you have any questions please do not hesitate to contact the Department of 's Affairs call center at . We look forward to providing your health care! Sincerely, Office Staff for: [facility] [address] [place] [address] T [phone] F [phone] Upcoming Appointments: 06/19/2023 10:00 CWM/NO/VVC/YOGA GRP 07/07/2023 10:00 CWM/NO/DENTAL DMD1 07/20/2023 14:30 CWM/SO/PACT 1 MANAGED SECURITY SALES CONSULTANT APPOINTMENT ABBREVIATION FLORES (SPOPC OR SO = [facility], [address] [place] [address]) (GOPC OR GO = [address]) ([facility] = [facility]) (VVC - Video Call) (Tel-X Telephone Visit) (TH - Telehealth) 06/11/2023 ADDENDUM STATUS: COMPLETED 60 min new pt appt scheduled for 07/20/23 @1430 new pt packet mailed Veterans outside PCP is Mateusz Wynne at [facility] [place] is inquiring about getting a SHPE Separation History and Physical Exam and is not sure if he can get it done at the [place] // SRIRAM HUGO LIDDER ROLLING ATTENDANT Signed: 06/11/2023 15:35 Receipt Acknowledged By: 06/15/2023 09:51 /cherri/ MACK STEARNS NP NURSE PRACTITIONER 06/12/2023 12:49 /cherri/ CLEVE MARY ADVANCE ROLLING ATTENDANT 06/11/2023 15:53 /es/ FAUSTO BAIRES LPN LICENSED PRACTICAL NURSE 06/11/2023 15:45 /es/ RACHAEL KOVACS RN REGISTERED NURSE 06/12/2023 ADDENDUM STATUS: COMPLETED THIS COMMUNICATIONS EQUIPMENT INSTALLER SENT FAX REQUEST FOR RECORDS FROM Dr. Mateusz Wynne at [facility] /cherri/ CLEVE MARY ADVANCE ROLLING ATTENDANT Signed: 06/12/2023 12:49 MACK STEARNS Jun 11, 2023 03:33 PM ADDENDUM: LOCAL TITLE: Addendum STANDARD TITLE: ADDENDUM DATE OF NOTE: JUN 11, 2023@15:33:42 ENTRY DATE: JUN 11, 2023@15:33:43 AUTHOR: SRIRAM HUGO COSIGNER: URGENCY: STATUS: COMPLETED 60 min new pt appt scheduled for 07/20/23 @1430 new pt packet mailed Veterans outside PCP is Mateusz Wynne at [facility] is inquiring about getting a SHPE Separation History and Physical Exam and is not sure if he can get it done at the [place] /es/ SRIRAM HUGO LIDDER ROLLING ATTENDANT Signed: 06/11/2023 15:35 Receipt Acknowledged By: 06/15/2023 09:51 /es/ MACK STEARNS NP NURSE PRACTITIONER 06/12/2023 12:49 /es/ CLEVE MARY ADVANCE ROLLING ATTENDANT 06/11/2023 15:53 /es/ FAUSTO BAIRES,TORCH STRAIGHTENER AND HEATER LICENSED PRACTICAL NURSE 06/11/2023 15:45 /es/ RACHAEL KOVACS RN REGISTERED NURSE --- Original Document --- 06/11/23 PATIENT LETTER (B): [facility] [address] [place] [address] [phone] * MACK HURTADO [address] [place], [place] [address] Date: JUN 11, 2023 Dear : Welcome to patient aligned care team 1 MANAGED SECURITY SALES CONSULTANT (PACT 1 MANAGED SECURITY SALES CONSULTANT) with MANAGED SECURITY SALES CONSULTANT Mack Stearns. Prior to meeting you at your new patient appointment we are requesting some of your past medical history so that we may provide you with the exceptional care you deserve. Please note that it is very helpful to have these documents at least two days prior to your appointment date as the more information we have the better we will be able to meet your needs: * Last History & Physical * Immunization records * Medication list * Diagnosis list * Most recent labs * Diagnostic screens (Colonoscopy, Abdominal Aortic Aneurysm screen, Mammograms, PAPS, etc.) You may either drop the requested records off in person to [address] [place] [address] or you may have them faxed to: [phone] ATTN: PACT 1 MANAGED SECURITY SALES CONSULTANT *Also please complete the enclosed new patient packet and drop it off at our [facility] location: [address] [place] [address]* If you have any questions please do not hesitate to contact the Department of 's Affairs call center at . We look forward to providing your health care! Sincerely, Office Staff for: [facility] [address] [place] [address] T [phone] F [phone] Upcoming Appointments: 06/19/2023 10:00 CWM/NO/VVC/YOGA GRP 07/07/2023 10:00 CWM/NO/DENTAL DMD1 07/20/2023 14:30 CWM/SO/PACT 1 MANAGED SECURITY SALES CONSULTANT APPOINTMENT ABBREVIATION FLORES (SPOPC OR SO = [address]) (GOPC OR GO = [address]) ([facility] = [facility]) (VVC - Video Call) (Tel-X Telephone Visit) (TH - Telehealth) 06/12/2023 ADDENDUM STATUS: COMPLETED THIS COMMUNICATIONS EQUIPMENT INSTALLER SENT FAX REQUEST FOR RECORDS FROM Dr. Mateusz Wynne at [facility] /cherri/ CLEVE MARY ADVANCE ROLLING ATTENDANT Signed: 06/12/2023 12:49 SRIRAM HUGO [facility] Jun 11, 2023 03:32 PM LETTERS: LOCAL TITLE: PATIENT LETTER (B) STANDARD TITLE: LETTERS DATE OF NOTE: JUN 11, 2023@15:32 ENTRY DATE: JUN 11, 2023@15:32:45 AUTHOR: SRIRAM HUGOIGNER: URGENCY: STATUS: COMPLETED PATIENT LETTER (B) Has ADDENDA [facility] [address] [place] [id number] [phone] * MACK HURTADO [address] [place], [place] [address] Date: JUN 11, 2023 Dear : Welcome to patient aligned care team 1 MANAGED SECURITY SALES CONSULTANT (PACT 1 MANAGED SECURITY SALES CONSULTANT) with MANAGED SECURITY SALES CONSULTANT Mack Stearns. Prior to meeting you at your new patient appointment we are requesting some of your past medical history so that we may provide you with the exceptional care you deserve. Please note that it is very helpful to have these documents at least two days prior to your appointment date as the more information we have the better we will be able to meet your needs: * Last History & Physical * Immunization records * Medication list * Diagnosis list * Most recent labs * Diagnostic screens (Colonoscopy, Abdominal Aortic Aneurysm screen, Mammograms, PAPS, etc.) You may either drop the requested records off in person to [address] [place] [address] or you may have them faxed to: [phone] ATTN: PACT 1 MANAGED SECURITY SALES CONSULTANT *Also please complete the enclosed new patient packet and drop it off at our [facility] location: [address] [place] [address]* If you have any questions please do not hesitate to contact the Department of 's Affairs call center at . We look forward to providing your health care! Sincerely, Office Staff for: [facility] [address] [place] [address] T [phone] F [phone] Upcoming Appointments: 06/19/2023 10:00 CWM/NO/VVC/YOGA GRP 07/07/2023 10:00 CWM/NO/DENTAL DMD1 07/20/2023 14:30 CWM/SO/PACT 1 MANAGED SECURITY SALES CONSULTANT APPOINTMENT ABBREVIATION FLORES (SPOPC OR SO = [facility], [address] [facility]) (GOPC OR GO = [place], [address] [facility]) ([facility] = [facility]) (VVC - Video Call) (Tel-X Telephone Visit) (TH - Telehealth) 06/11/2023 ADDENDUM STATUS: COMPLETED 60 min new pt appt scheduled for 07/20/23 @1430 new pt packet mailed Veterans outside PCP is Mateusz Wynne at [facility] is inquiring about getting a SHPE Separation History and Physical Exam and is not sure if [facility] can [facility] /cherri/ SRIRAM HUGO LIDDER ROLLING ATTENDANT Signed: 06/11/2023 15:35 Receipt Acknowledged By: 06/15/2023 09:51 /cherri/ MACK STEARNS NP NURSE PRACTITIONER 06/12/2023 12:49 /cherri/ CLEVE MARY ADVANCE ROLLING ATTENDANT 06/11/2023 15:53 /es/ FAUSTO BAIRES LPN LICENSED PRACTICAL NURSE 06/11/2023 15:45 /es/ RACHAEL KOVACS RN REGISTERED NURSE 06/12/2023 ADDENDUM STATUS: COMPLETED THIS COMMUNICATIONS EQUIPMENT INSTALLER SENT FAX REQUEST FOR RECORDS FROM Dr. Mateusz Wynne at [facility] /cherri/ CLEVE MARY ADVANCE ROLLING ATTENDANT Signed: 06/12/2023 12:49 06/15/2023 ADDENDUM STATUS: COMPLETED Separation history and physical exam are typically done by the unit from which the will be from. [facility] does not perform these. /cherri/ MACK STEARNS NP NURSE PRACTITIONER Signed: 06/15/2023 09:52 Receipt Acknowledged By: * AWAITING SIGNATURE * CLEVE MARY * AWAITING SIGNATURE * SRIRAM HUGO,SRIRAM MASSEY
--- OUTSIDE RECORDS SUMMARY | 2024-02-16 07:28 | XMS_ITS | Encounter Summary ---
Author Name Department of [place] Organization [place] Address [address] [place] [address] Support Name Relationship Address Phone BRYANT SRIRAM Next of Kin [address] [place] [address] SRIRAM HURTADO Emergency Contact [address] [place] [address] Selected Encounter This section includes the information on record at [place] for the Encounter. Date/Time Encounter Type Encounter Description Reason Provider Source Jun 11, 2023 09:54 AM HC PRO PHONE CALL 11-20 MIN TELEPHONE/TRISTON MARQUES ICD-10-CM Z73.3 Stress, not elsewhere classified JESUS FLETCHER Judith Encounter Template Text not used by [place] Assessments - Encounter Diagnoses This section includes the primary and secondary diagnoses documented for the Encounter. Date/Time Primary/Secondary Diagnosis Diagnosis Name Provider Source Jun 11, 2023 09:54 AM PRIMARY Stress, not elsewhere classified [facility] FLETCHER [facility] ([id number]) Plan of Treatment: Future Appointments (+ 6 months) and Future Tests (+/- 45 days) The Plan of Treatment section includes future care activities for the patient from all [place] treatmentfacilities. This section includes future appointments and future orders which are active, pending or scheduled. Future Appointments This section includes appointments that were scheduled to occur 6 months from the date of the Encounter, up to a maximum of 20 appointments. The data comes from all [place] treatment facilities. Appointment Date/Time Appointment Type Appointme nt Facility Name Jun 19, 2023 10:00 AM AMBULATORY - MEDICINE [facility] Jun 23, 2023 08:00 AM [facility] Jun 24, 2023 08:00 AM AMBULATORY - PSYCHIATRY [facility] July 07, 2023 10:00 AM AMBULATORY - NONE [facility] [place] [facility] July 16, 2023 08:30 AM AMBULATORY - PSYCHIATRY [facility] July 20, 2023 02:00 PM AMBULATORY - MEDICINE [facility] July 21, 2023 10:00 AM AMBULATORY - MEDICINE [facility] [place] [facility] July 22, 2023 12:00 PM AMBULATORY - MEDICINE [facility] [place] [facility] July 24, 2023 02:00 PM AMBULATORY - MEDICINE [facility] [place] [facility] July 31, 2023 10:00 AM AMBULATORY - NONE [facility] [place] [facility] Aug 06, 2023 09:30 AM AMBULATORY - MEDICINE [facility] [place] [facility] Aug 11, 2023 10:00 AM AMBULATORY - PS[facility]CHIATRY [facility] [place] [facility] Sep 11, 2023 08:30 AM AMBULATORY - REHAB MEDICIN E [facility] [place] [facility] Sep 21, 2023 11:00 AM AMBULATORY - MEDICINE [facility] [place] [facility] Sep 23, 2023 04:00 PM AMBULATORY - REHAB MEDICIN E [facility] [place] [facility] Sep 24, 2023 02:00 PM AMBULATORY - PS[facility]CHIATRY [facility] [place] [facility] Sep 25, 2023 08:15 AM AMBULATORY - MEDICINE [facility] [place] [facility] Sep 28, 2023 11:00 AM AMBULATORY - MEDICINE [facility] [place] [facility] Oct 01, 2023 03:30 PM AMBULATORY - REHAB MEDICIN E [facility] [place] [facility] Oct 05, 2023 11:00 AM AMBULATORY - MEDICINE [facility] [place] [facility] Encounter Notes: All associated encounter notes This section contains the clinical notes associated to the Encounter. Date/Time Encounter Note(s) Provider Source Jun 11, 2023 10:10 AM CONSULT: LOCAL TITLE: CONSULT REPORT/WHOLE HEALTH STANDARD TITLE: CONSULT DATE OF NOTE: JUN 11, 2023@10:10 ENTRY DATE: JUN 11, 2023@10:10:18 AUTHOR: JESUS FLETCHER EXP COSIGNER: URGENCY: STATUS: COMPLETED Whole Health Telephone Note Length of call: 16 minutes Diagnosis: Stress, not elsewhere classified Comments: Adult Education Professional received return phone call from Whole Health consult. expressed interest in learning about Whole Health and available services and noted preference for phone call. Adult Education Professional provided psychoeducation about the Whole Health model, [facility], and complimentary and integrative health services. Merkel reported that he felt he had issues that are interconnected, and indicated appreciation for Whole Health model. Stated that he wanted to hear about in-person services in [facility] and [facility]. Adult Education Professional reviewed these, and described interest in acupuncture for pain and stress, pet care assistant for his neck, and biofeedback for hypertension and anxiety. Adult Education Professional encouraged Merkel to reach out with additional questions and provided contact information. No follow up planned. Mental Status: reported that he was good, with normal speech. His mood appeared euthymic, and his orientation was within normal limits. Thought process appeared to be logical and linear. Merkel did not report experiencing any current suicidal ideation, plan or intent; any homicidal ideation, plan or intent; or thoughts of engaging in self-harming behavior(s). Plan: -Consult to [facility] acupuncture -Consult to [facility] pet care assistant -Consult to [facility] biofeedback /es/ Jesus Fletcher, PhD Clinical Psychologist Signed: 06/11/2023 10:25 [facility] ([id number])
--- OUTSIDE RECORDS SUMMARY | 2024-02-16 07:28 | XMS_ITS | Encounter Summary ---
Author Name [facility] [place] Organization [place] Address [address] [place] [id number] Support Name Relationship Address Phone HURTADO, SRIRAM Next of Kin [address] [place] [address] BRYANT SRIRAM Emergency Contact [address] [place] [address] Selected Encounter This section includes the information on record at [place] for the Encounter. Date/Time Encounter Type Encounter Description Reason Pro vider Source Jun 11, 2023 03:02 PM Outpatient Encounter HEALTH/WE[facility] IHE Encounter Template Text not used by [place] Plan of Treatment: Future Appointments (+ 6 months) and Future Tests (+/- 45 days) The Plan of Treatment section includes future care activities for the patient from all [place] treatmentfacilities. This section includes future appointments and future orders which are active, pending or scheduled. Future Appointments This section includes appointments that were scheduled to occur 6 months from the date of the Encounter, up to a maximum of 20 appointments. The data comes from all [place] treatment facilities. Appointment Date/Time Appointment Type Appointme nt Facility Name Jun 19, 2023 10:00 AM AMBULATORY - MEDICINE [place] [facility] [place] [facility] Jun 23, 2023 08:00 AM AMBULATORY - MEDICINE [facility] [place] [facility] Jun 24, 2023 08:00 AM AMBULATORY - PSYCHIATRY [facility] July 07, 2023 10:00 AM AMBULATORY - NONE [facility] [place] [facility] July 16, 2023 08:30 AM AMBULATORY - PSYCHIATRY [facility] July 20, 2023 02:00 PM AMBULATORY - MEDICINE [facility] July 21, 2023 10:00 AM AMBULATORY - MEDICINE [place] [facility] [place] [facility] July 22, 2023 12:00 PM AMBULATORY - MEDICINE [facility] [place] [facility] July 24, 2023 02:00 PM AMBULATORY - MEDICINE [facility] [place] [facility] July 31, 2023 10:00 AM AMBULATORY - NONE [facility] [place] [facility] Aug 06, 2023 09:30 AM AMBULATORY - MEDICINE [facility] [place] [facility] Aug 11, 2023 10:00 AM AMBULATORY - PS[facility]CHIATRY [facility] [place] [facility] Sep 11, 2023 08:30 AM AMBULATORY - REHAB MEDICIN E [facility] [place] [facility] Sep 21, 2023 11:00 AM AMBULATORY - MEDICINE [facility] [place] [facility] Sep 23, 2023 04:00 PM AMBULATORY - REHAB MEDICIN E [facility] [place] [facility] Sep 24, 2023 02:00 PM AMBULATORY - PS[facility]CHIATRY [facility] [place] [facility] Sep 25, 2023 08:15 AM AMBULATORY - MEDICINE [facility] [place] [facility] Sep 28, 2023 11:00 AM AMBULATORY - MEDICINE [facility] [place] [facility] Oct 01, 2023 03:30 PM AMBULATORY - REHAB MEDICIN E [facility] [place] [facility] Oct 05, 2023 11:00 AM AMBULATORY - MEDICINE [facility] [place] [facility] Encounter Notes: All associated encounter notes This section contains the clinical notes associated to the Encounter. Date/Time Encounter Note(s) Provider Source Jun 11, 2023 03:02 PM LETTERS: LOCAL TITLE: PATIENT LETTER (B) STANDARD TITLE: LETTERS DATE OF NOTE: JUN 11, 2023@15:02 ENTRY DATE: JUN 11, 2023@15:02:11 AUTHOR: BERONICA CLARKE EXP COSIGNER: URGENCY: STATUS: COMPLETED [facility] Toll Free [facility]- ext. [phone] JUN 11, 2023 MACK HURTADO [address] [place] [address] Dear MACK HURTADO Your provider placed a consult for you for Whole Health Coaching services and have been unable to reach you by phone. The Whole Health Program aims to support you in pursuing what matters most to you and includes services that support your values and overall wellness. To schedule this appointment please call us at ext. [phone]. Our booking appointment hours are Thursday through Thursday from 8:00 am to 4:00 pm. Please leave a message if you receive voicemail and let us know a good time and telephone number where we can reach you. If we dont hear back from you within 14 days from the date of this letter, we will discontinue the request. If you have already scheduled this appointment, please disregard this letter. Your health is important to us. If you have any additional questions regarding The Whole Health Program and Coaching Services, please do not hesitate to contact The Whole Health Program by contacting [employer] [facility] Whole [facility] Health And Safety Consultant at [phone] Ext. [phone]. Thank you for your service to our nation, and we look forward to hearing from you soon. Sincerely, [facility] [address] [place] [address] * * BERONICA CLARKE [facility] ([id number])
--- NOTE | 2024-02-16 07:29 | MHC.OFFVIS ---
Vital Signs 02/16/24 07:31 Height 5 ft 9 in Weight 226 lb BMI 33.4 BP 130/80 Blood Pressure Location Lt brachial Position Sitting Pulse 90 Pulse Source Pulse Oximeter Pulse Oximetry (%) 96 Oxygen Delivery Method Room Air Intake Visit Reasons: INP- Fatigue /Snoring Mash Processing Operator Required: No Accompanied by: Self / Same As Patient Allergies No Known Allergies Allergy (Verified 06/21/24 21:59) Medication List - Last Reconciled 08/04/24 by Eri Lei MD diclofenac potassium 50 mg PO BID PRN methylphenidate HCl ER 36 mg PO QAM omeprazole 20 mg PO DAILY tizanidine 4 mg PO Q8H PRN 30 days Do you need a note to return to daycare/school/sports/work: Yes Return to daycare/school/sports/work/other note: work HPI Comments Details: 48y/o male with snoring and excessive daytime sleepiness . He had 2 inconclusive sleep studies . His recent ( 12/31) in lab sleep study was c/w mild sleep apnea. His main symptoms , snoring, excessive daytime sleepiness, fatigue, leg spasms at night, restless legs, trouble falling and staying asleep, GERD at night. He denies any abnormal sleep behavior, denies nocturia. COUNTS INCLUDE 234 BEDS AT THE [facility] Medical History (Updated 08/04/24 @ 08:08 by Eri Lei MD) Obstructive sleep apnea Fatigue Physical exam Urinary dribbling Urinary urgency Foot pain Right hip pain Muscle spasm of back Orchalgia Light headedness Body aches Difficulty urinating Skin lesion Back pain Arthritis Sleep disorder Renal calculi Depression Lumbar facet arthropathy Low back pain Hyperlipidemia Obesity Anxiety Surgical History History of back surgery History of testicular surgery H/O elbow surgery History of vasectomy Family History Father No problems noted. Mother No problems noted. Social History Housing: House Are you a primary restorative care technician to a significant other at home: No Do you presently have visiting nurse or other home services: No Alcohol intake: never Patient Tobacco Use Status: Never used Tobacco e-Cigarette/Vaping Use: Never Used Second Hand Smoke Exposure: No service: Yes Current occupational status: employed Cognitive needs: No Hearing needs: No Vision needs: No Physical Exam Vital Signs: Last Vital Signs Pulse 90 02/16/24 07:31 BP 130/80 02/16/24 07:31 Pulse Ox 96 02/16/24 07:31 Oxygen Delivery Method Room Air 02/16/24 07:31 BMI result Body Mass Index 33.4 Const General: cooperative, healthy appearing, comfortable, no acute distress and well developed Nutritional Appearance: overweight Orientation/consciousness: patient oriented x3 Eyes Pupils: Equal, round and reactive pupils present Neuro General: patient oriented x3, gait normal, tone normal, moves all extremities and no focal motor deficits Cranial nerves: Yes Facial sensation intact/muscles of mastication intact, Yes Equal, round and reactive pupils present, Yes Bilaterally intact EOM present, Yes Nystagmus not present, Yes Normal facial strength present and Yes Midline tongue present Gait exam (Neuro): Normal gait present Motor exam (neuro): 5/5 motor strength present throughout and Normal motor muscle tone present throughout Coordination: [id number] test normal Assessment & Plan Assessment & Plan (1) Obstructive sleep apnea: Code(s): G47.33 - Obstructive sleep apnea (adult) (pediatric) Category: Medical Plan Start AUtoPAP 5-20 cm of water and will f/u to ensure compliance and therapy response. Coding Level of Care Code New Pt Level 3 (16393) Diagnoses Obstructive sleep apnea G47.33 Austin Sleepiness Scale Questions Sitting and reading: high chance of dozing Watching TV: moderate chance of dozing Sitting inactive in a theater, movie etc.: high chance of dozing As a passenger in a car for an hour without break: would never doze Lying down in the afternoon when circumstances permit: high chance of dozing Sitting and talking to someone: would never doze Sitting quietly after lunch without alcohol: slight chance of dozing In a car, while stopped for a few minutes in the traffic: would never doze ESS < 10: normal, ESS > 12: pathologic: 12
--- OUTSIDE RECORDS SUMMARY | 2024-02-16 07:29 | XMS_ITS | Encounter Summary ---
Author Name [facility] [place] Organization [facility] [place] Address [address] [place] [id number] Support Name Relationship Address Phone BRYANT SRIRAM Next of Kin [address] [place] [address] SRIRAM HURTADO Emergency Contact [address] [place] [address] Selected Encounter This section includes the information on record at [place] for the Encounter. 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 This section includes future appointments and [...] 19, 2023 10:00 AM AMBULATORY - MEDICINE [place] [facility] [place] [facility] Jun 23, 2023 08:00 AM AMBULATORY - MEDICINE [place] [facility] [place] [facility] Jun 24, 2023 08:00 AM AMBULATORY - PSYCHIATRY [facility] July 07, 2023 10:00 AM AMBULATORY - NONE [place] [facility] [place] [facility] July 16, 2023 08:30 AM AMBULATORY - PSYCHIATRY [facility] July 20, 2023 02:00 PM AMBULATORY - MEDICINE [facility] July 21, 2023 10:00 AM AMBULATORY - MEDICINE [place] [facility] [place] [facility] July 22, 2023 12:00 PM AMBULATORY - MEDICINE [facility] [place] [facility] July 24, 2023 02:00 PM AMBULATORY - MEDICINE [facility] [place] [facility] July 31, 2023 10:00 AM AMBULATORY - NONE [facility] [place] [facility] Aug 06, 2023 09:30 AM AMBULATORY - MEDICINE [facility] [place] [facility] Aug 11, 2023 10:00 AM AMBULATORY - PSYCHIATRY [facility] [place] [facility] Sep 11, 2023 08:30 AM AMBULATORY - REHAB MEDICIN E [facility] [place] [facility] Sep 21, 2023 11:00 AM AMBULATORY - MEDICINE [facility] [place] [facility] Sep 23, 2023 04:00 PM AMBULATORY - REHAB MEDICIN E [facility] [place] [facility] Sep 24, 2023 02:00 PM AMBULATORY - PSYCHIATRY [facility] [place] [facility] Sep 25, 2023 08:15 AM AMBULATORY - MEDICINE [facility] [place] [facility] Sep 28, 2023 11:00 AM AMBULATORY - MEDICINE [facility] [place] [facility] Oct 01, 2023 03:30 PM AMBULATORY - REHAB MEDICIN E [facility] [place] [facility] Oct 05, 2023 11:00 AM AMBULATORY - MEDICINE [facility] [place] [facility] Encounter Notes: All associated encounter notes This section contains the clinical notes associated to the Encounter. Date/Time Encounter Note(s) Provider Source Jun 15, 2023 10:29 AM LETTERS: LOCAL TITLE: PATIENT LETTER (B) STANDARD TITLE: LETTERS DATE OF NOTE: JUN 15, 2023@10:29 ENTRY DATE: JUN 15, 2023@10:29:15 AUTHOR: SILVA TORRES EXP COSIGNER: URGENCY: STATUS: COMPLETED [facility] Toll Free Number ext [phone] [facility] scheduling can be reached at ext. [phone] [facility]- ext. [phone] [facility]- ext. [phone] [facility]- ext. [phone] JUN 15, 2023 MACK HURTADO [address] [place] [id number] Dear MACK HURTADO Thank you for choosing the [facility] of [facility] ([place]) [facility] as your primary choice for health care. As a partner in your health care, we are contacting you in writing since we have been unsuccessful in our attempts to reach you to date. We want to assure you we are doing everything possible to schedule Veterans for their [place] medical care appointments. Our records indicate you are due for an appointment in chiropractor clinic. If you would like to be seen, please contact [facility] at ext. [phone] to schedule an appointment. Thank you for your service to our nation, and we look forward to hearing from you soon. Sincerely, [facility] [address] [facility] [address] [place] [address] [place] [address] ext [phone] [facility] [address] [facility] [address] [place] [address] [place] [address] ext. [phone] SILVA TORRES [place] [facility]
--- OUTSIDE RECORDS SUMMARY | 2024-02-16 07:29 | XMS_ITS | Encounter Summary ---
Author Name [facility] [place] Organization [facility] [place] Address [address] [place] [address] Support Name Relationship Address Phone SRIRAM HURTADO Next of Kin [address] [place] [address] SRIRAM HURTADO Emergency Contact [address] [place] [address] Selected Encounter This section includes the information on record at [place] for the Encounter. Date/Time Encounter Type Encounter Description Reason Pro vider Source IHE Encounter Template Text not used by VA
--- OUTSIDE RECORDS SUMMARY | 2024-02-16 07:29 | XMS_ITS ---
Author Name [facility] [place] Organization [facility] [place] Address [address] [place] [id number] Support Name Relationship Address Phone HURTADO, SRIRAM Next of Kin [address] [place] [address] HURTADO, SRIRAM Emergency Contact [address] [place] [address] Selected Encounter This section includes the information on record at [place] for the Encounter. Date/Time Encounter Type Encounter Description Reason Provider Source Jun 19, 2023 12:33 PM PSYTX W PT 45 MINUTES TELEPHONE/MEDICIN E ICD-10-CM F43.10 Post-traumatic stress disorder, unspecified KOROCHENKO,MAR IA E Encounter Template Text not used by [place] Assessments - Encounter Diagnoses This section includes the primary and secondary diagnoses documented for the Encounter. 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 This section includes future appointments and future orders which are active, pending or scheduled. Future Appointments This section includes appointments that were scheduled to occur 6 months from the date of the Encounter, up to a maximum of 20 appointments. The data comes from all [place] treatment facilities. Appointment Date/Time Appointment Type Appointme nt Facility Name Jun 23, 2023 08:00 AM AMBULATORY - MEDICINE [facility] [place] [facility] Jun 24, 2023 08:00 AM AMBULATORY - PSYCHIATRY [facility] July 07, 2023 10:00 AM AMBULATORY - NONE [facility] [place] [facility] July 16, 2023 08:30 AM AMBULATORY - PSYCHIATRY [facility] July 20, 2023 02:00 PM AMBULATORY - MEDICINE [facility] July 21, 2023 10:00 AM AMBULATORY - MEDICINE [facility] [place] [facility] July 22, 2023 12:00 PM AMBULATORY - MEDICINE [facility] [place] [facility] July 24, 2023 02:00 PM AMBULATORY - MEDICINE [facility] [place] [facility] July 31, 2023 10:00 AM AMBULATORY - NONE [facility] [place] [facility] Aug 06, 2023 09:30 AM AMBULATORY - MEDICINE [facility] [place] [facility] Aug 11, 2023 10:00 AM AMBULATORY - PSYCHIATRY [facility] [place] [facility] Sep 11, 2023 08:30 AM AMBULATORY - REHAB MEDICIN E [facility] [place] [facility] Sep 21, 2023 11:00 AM AMBULATORY - MEDICINE [facility] [place] [facility] Sep 23, 2023 04:00 PM AMBULATORY - REHAB MEDICIN E [facility] [place] [facility] Sep 24, 2023 02:00 PM AMBULATORY - PSYCHIATRY [facility] [place] [facility] Sep 25, 2023 08:15 AM AMBULATORY - MEDICINE [facility] [place] [facility] Sep 28, 2023 11:00 AM AMBULATORY - MEDICINE [facility] [place] [facility] Oct 01, 2023 03:30 PM AMBULATORY - REHAB MEDICIN E [facility] [place] [facility] Oct 05, 2023 11:00 AM AMBULATORY - MEDICINE [facility] [place] [facility] Oct 06, 2023 04:30 PM AMBULATORY - REHAB MEDICIN E [facility] Encounter Notes: All associated encounter notes This section contains the clinical notes associated to the Encounter. Date/Time Encounter Note(s) Provider Source Jun 19, 2023 12:33 PM ORTHOPEDIC PHYSICIAN ASSISTANT NOTE: LOCAL TITLE: POST 911 CASE MANAGEMENT SCREENING STANDARD TITLE: ORTHOPEDIC PHYSICIAN ASSISTANT NOTE DATE OF NOTE: JUN 19, 2023@12:33 ENTRY DATE: JUN 19, 2023@12:33:26 AUTHOR: JENA BERNAL COSIGNER: URGENCY: STATUS: COMPLETED Post 11/10 Case Management Screen The contact with the was made in person. [place] demographic information has been verified as correct. Preferred Method(s) of Communication: Text Medical and/or Mental Health Crisis: The [place] is NOT currently experiencing a medical and/or mental health crisis. Emergency Room Visits/Hospital Admissions: The has NOT had three or more emergency room visits or hospital admissions in the past six months. Chronic Health Conditions: Anxiety Depression Other Specify: nerve pain and inflammation, tinnitus, sleep disorder, GI issues (bloating, GERD), migraines, back pain Concerns/Questions/Needs: The has NO barriers to care concerns, questions or needs at this time. The HAS concerns, questions or needs regarding benefits. The HAS concerns, questions or needs regarding managing care. The [place] HAS social concerns, questions or needs. Case Management Screen Outcome: The HAS identified needs as described above. The Veterans identified needs WERE resolved during this encounter. Additional Comments: Clerk and met on [facility] for purposes of assessment, education, referral; fiction writer also explained own role, as well as that of VA team. appropriately dressed/groomed, euthymic mood, congruent affect, linear thought process, A&O x 3. 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 reports a hx of toxic exposure to include contaminated water and air, and he has completed Airborne Hazard assessment; educated about PACT Act. reports an extensive hx of concussion during his years in the , denied incidents of loc. [place] endorses sx of depression, anxiety, and has been dx with [facility] the [facility]; also screened positive for PTSD during this assessment. Lesley denied any hx of or current MATTIE struggles. endorsees chronic, passive SI, no plan or intent. Clerk reviewed [facility] and L information, and reminded lesley to go to nearest ER in the event of a mental health emergency. Lesley spoke of the various health conditions he is experiencing since his time in the , and those are outlined above. Lesley believes that his mental health, nerve, as well as GI sx are all interconnected, and may be a result of toxic exposures or tick bite. Lesley was educated on medical and mental health tx services and programs available in the [place] and [place] community care system, including whole health options. Lesley has a vesting primary care appointment scheduled for end of June, but has meet with [facility] staff who have referred lesley for biofeedback for anxiety and elevated blood pressure, yoga, as well as acupuncture; also requesting massage therapy referral, and fiction writer forwarded request to [facility] staff, who graciously agreed to submit referral. Lesley plans to address above medical conditions further at PCP appointment, including potential referral to TBI clinic vs neuro for migraines. Lesley is having biweekly individual counseling at the [facility], but is interested in a referral for medication evaluation to address sx of ADD, and hopefully depression and anxiety as well. Lesley is starting college in the summer and is worried that ADD may get in the way of academic success. Clerk provided psychoeducation about PTSD and trauma, as well as cooccurring and overlapping conditions and sx, incl ADD. Clerk discussed alpha stim as a potentially helpful device to add to his toolbox in addressing some of his sx, and expressed interest. Lesley resides with his and children in his own home, but is worried he may have to sell the home soon and move into an apartment if he does not get a job; fiction writer discussed VA employment assistance services, and expressed interest. Clerk educated lesley about his VA benefits, including his VA health benefit, as well as [place] and the claims process, and provided him with [facility] contact information for further assistance. Lesley reports that he worked with [employer] to file his claims in November 2022, and is about to attend his last C&P. with no unresolved questions or concerns at end of meeting, scheduled for 2nd alpha stim trial on 07/26/23. completed initial trial of Alpha-Stim during our meeting today. [place] was educated on potential benefits of Alpha-Stim for managing/reducing anxiety, depression, pain, as well as promoting sleep. [place] was explained that improvement of depression and/or insomnia symptoms often requires at least 3 months of consistent use (daily 20 min sessions), but that alleviation of anxiety and pain symptoms can be more immediate. Potential contraindications of Alpha-Stim device use were discussed, and verbalized understanding of them. was informed that 3 trials are needed prior to being issued an Alpha-Stim device, and agreed to this. Clerk explained what to expect, and demonstrated how to set-up and utilize the Alpha-Stim. [place] utilized the device for 20 minutes and reports noting a calming and relaxing affect pretty quickly into the session. [place] was notified to watch for any negative symptoms for the rest of the day, including headache or nausea. Suicide Screen: C-SSRS Screening Gordon-Suicide Severity Rating Scale (C-SSRS Screener) 1. Over the past month, have you wished you were or wished you could go to sleep and not wake up? Yes 2. Over the past month, have you had any actual thoughts of killing yourself? No 3. Over the past month, have you been thinking about how you might do this? Response not required due to responses to other questions. 4. Over the past month, have you had these thoughts and had some intention of acting on them? Response not required due to responses to other questions. 5. Over the past month, have you started to work out or worked out the details of how to kill yourself? Response not required due to responses to other questions. 6. If yes, at any time in the past month did you intend to carry out this plan? Response not required due to responses to other questions. 7. In your lifetime, have you ever done anything, started to do anything, or prepared to do anything to end your life (for example, collected pills, obtained a gun, gave away valuables, went to the roof but didn't jump)? No 8. If YES, was this within the past 3 months? Response not required due to responses to other questions. PTSD Screening: PC-PTSD-5 A PTSD screening test (PC-PTSD-5) was positive (score=4). IN THE PAST MONTH, have you ever had any experience that was so frightening, horrible or traumatic. For example: A serious accident or fire a physical or sexual assault or abuse An earthquake or flood A war Seeing someone be killed or seriously injured Having a loved one through homicide or suicide 1. Have you ever experienced this kind of event? YES 2. Had nightmares about the event(s) or thought about the event(s) when you did not want to? YES 3. Tried hard not to think about the event(s) or went out of your way to avoid situations that reminded you of the event(s)? YES 4. Been constantly on guard, watchful, or easily startled? YES 5. [place] numb or detached from people, activities, or your surroundings? NO 6. [place] guilty or unable to stop blaming yourself or others for the event(s) or any problems the event(s) may have caused? YES Licensed Independent Provider notified of positive screen and need for follow-up. Name of provider notified: has care at the [facility], will be referred for medication evaluation Alcohol Use Screen (AUDIT-C): Alcohol Screen: SCREEN FOR ALCOHOL (AUDIT-C) An alcohol screening test (AUDIT-C) was negative (score=0). 1. How often did you have a drink containing alcohol in the past year? Consider a drink to be a 12 ounce can or bottle of regular beer, 8 ounces of malt liquor, a 5 ounce glass of table wine, or a 1.5 ounce shot of liquor (like scotch, gin, or vodka). Never 2. How many drinks containing alcohol did you have on a typical day when you were drinking in the past year? Response not required due to responses to other questions. 3. How often did you have six or more drinks on one occasion in the past year? Response not required due to responses to other questions. MST Screening: Patient denies experiencing sexual trauma (MST). Depression Screening: Perform PHQ-2 A PHQ-2 screen was performed. The score was 5 which is a positive screen for depression. Over the past two weeks, how often have you been bothered by the following problems? 1. Little interest or pleasure in doing things Nearly every day 2. Feeling down, depressed, or hopeless More than half the days Licensed Independent Provider notified of positive screen and need for follow-up. Name of provider notified: has care at the [facility], will be referred for medication evaluation Homelessness/Food Insecurity Screen: In the past 2 months, have you been living in stable housing that you own, rent, or stay in as part of a household? Yes - Living in stable housing. Are you worried or concerned that in the next 2 months you may NOT have stable housing that you own, rent, or stay in as part of a household? Yes - Worried about housing near future Where have you lived for MOST of the past 2 months? Apartment/House/Room - no government subsidy Would you like to be REFERRED to talk more about your housing situation? [place] declines referral to Social Work at this time - Given information for future reference. What's the best way to reach you? How to reach: listed number The [place] reports the following: Within the past 12 months, you worried whether your food would run out before you got money to buy more. Never true Within the past 12 months, the food you bought just didn't last and you didn't have money to get more. Never true WHOLE HEALTH WHOLE HEALTH EDUCATION Whole Health Education was provided. /cherri/ RENALDO Poole LICENSED CLINICAL RESTAURANT GREETER Signed: 06/19/2023 13:59 JENA BERNAL [place] [facility]
--- OUTSIDE RECORDS SUMMARY | 2024-02-16 07:30 | XMS_ITS ---
Author Name [facility] [facility] [place] [facility] [place] Address [address] [place] [address] Support Name Relationship Address Phone BRYANT SRIRAM Next of [place] [address] [place] [address] SRIRAM HURTADO Emergency Contact [address] [place] [address] Selected Encounter This section includes the information on record at [place] for the Encounter. Date/Time Encounter Type Encounter Description Reason Provider Source Jun 24, 2023 08:00 AM OFF/OP EST JUNE X [facility] - IND ICD-10-CM Z71.89 Other specified counseling JUNE NASH Encounter Template Text not used by [place] Assessments - Encounter Diagnoses This section includes the primary and secondary diagnoses documented for the Encounter. Date/Time Primary/Secondary Diagnosis Diagnosis Name Provider Source Jun 24, 2023 03:03 PM PRIMARY Other specified counseling JUNE NASH Plan of Treatment: Future Appointments (+ 6 [...] Date/Time Appointment Type Appointme nt Facility Name July 07, 2023 10:00 AM AMBULATORY - NONE [facility] July 16, 2023 08:30 AM AMBULATORY - PSYCHIATRY [facility] July 20, 2023 02:00 PM AMBULATORY - MEDICINE [facility] July 21, 2023 10:00 AM AMBULATORY - MEDICINE [facility] [place] [facility] July 22, 2023 12:00 PM AMBULATORY - MEDICINE [facility] [place] [facility] July 24, 2023 02:00 PM AMBULATORY - MEDICINE [facility] [place] [facility] July 31, 2023 10:00 AM AMBULATORY - NONE [facility] [place] [facility] Aug 06, 2023 09:30 AM AMBULATORY - MEDICINE [facility] [place] [facility] Aug 11, 2023 10:00 AM AMBULATORY - PSYCHIATRY [facility] [place] [facility] Sep 11, 2023 08:30 AM AMBULATORY - REHAB MEDICIN E [facility] [place] [facility] Sep 21, 2023 11:00 AM AMBULATORY - MEDICINE [facility] [place] [facility] Sep 23, 2023 04:00 PM AMBULATORY - REHAB MEDICIN E [facility] [place] [facility] Sep 24, 2023 02:00 PM AMBULATORY - PSYCHIATRY [facility] [place] [facility] Sep 25, 2023 08:15 AM AMBULATORY - MEDICINE [facility] [place] [facility] Sep 28, 2023 11:00 AM AMBULATORY - MEDICINE [facility] [place] [facility] Oct 01, 2023 03:30 PM AMBULATORY - REHAB MEDICIN E [facility] [place] [facility] Oct 05, 2023 11:00 AM AMBULATORY - MEDICINE [facility] [place] [facility] Oct 06, 2023 04:30 PM AMBULATORY - REHAB MEDICIN E [facility] [place] [facility] Oct 13, 2023 04:30 PM AMBULATORY - REHAB MEDICIN E [facility] [place] [facility] Oct 15, 2023 01:30 PM AMBULATORY - REHAB MEDICIN E [facility] [place] [facility] Radiology Reports: +/- 30 days of the encounter Radiology Reports For cases when an order for radiology services may have been completed prior to the date of the Encounter, the report list includes the Radiology Reports that were completed up to 30 days before dateof the Encounter. For cases when an order for radiology services may have been completed after the date of the Encounter, the report list also includes the Radiology Reports that were completed up to30 days after date of the Encounter. The data comes from all [place] treatment facilities. Date/Time Radiology Report Provider Source July 22, 2023 12:00 PM OUTSIDE MRI CERVIC AL SPINE: MACK HURTADO [id number] -1975 M Exm Date: JULY 22, 2023@12:00 Req Phys: MARTI BUTLER Loc: CWM/SO/PACT 3 WH (Req'g Loc) Img Loc: OUTSIDE GENERAL RADIOLOGY Service: Unknown (Case [id number] COMPLETE) OUTSIDE MRI CERVICAL SPINE (RAD Detailed) CPT:91876 Reason for Study: cerv radiculopathy Clinical History: paresthesias both hands radial distribution Report Status: Electronically Filed Date Reported: JULY 22, 2023 Report: Community care exam; see CPRS/JLV for outside radiology report/results Impression: Community care exam; see CPRS/JLV for outside radiology report/results Primary Diagnostic Code: VERIFIED BY: / *ELECTRONICALLY FILED* [place] [facility] [place] [facility] Encounter Notes: All associated encounter notes This section contains the clinical notes associated to the Encounter. Date/Time Encounter Note(s) Provider Source Jun 24, 2023 02:07 PM SOCIAL WORK CONSUL T: [facility] TITLE: CONSULT REPORT/MENTAL HEALTH/SOCIAL WORK STANDARD TITLE: SOCIAL WORK CONSULT DATE OF NOTE: JUN 24, 2023@14:07 ENTRY DATE: JUN 24, 2023@14:07:51 AUTHOR: JUNE NASH EXP COSIGNER: URGENCY: STATUS: COMPLETED Purpose of today's appointment is to clarify the MH request and to gather some information. 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 He is 20+ yrs, they have 4 children, aged late teens to early 20's, 3 sons 1 daughter. All the kids have some kind of anxiety problem. He speaks about his 22 y/o son, last year he was hospitalized for about 4mos, the hospitalization was not a good experience. They believe his son is diagnosed w bipolar. His youngest is a marimar in . 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 They moved to this area about 4yrs ago for his work at [employer]. 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 During those deployments he was gone more than 200 days of the year, this has all been really hard on my . They usually didn't live near family, she had little support. His work at [employer] was difficult, not the job itself but two particular higher ranked female co-workers made it difficult. 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 He learned they were smearing my name around the base, telling out right lies about me . He tried to resolve this through the proper channels, to only be more frustrated and angry, he consulted w his machine shop inspector who advised him it'd be best if he resigned. He had hoped to serve for several more years. Mack has been job searching since Dec, I have probably applied to 600 hundred jobs, most don't even respond, others tell me I need a bachelor's degree, others said they are moving forward with someone else. I never expected getting a job would be so difficult. I've always worked, this has been really hard for me. Damian has also applied for unemployment but has not heard anything yet, he is also frustrated w this. At this time their only income is his 's. His is working, and they are living off of their savings. If he is unable to find work they are thinking they will need to sell their home and rent an apartment until their youngest graduates, he has been busy preparing the home to sell. He has filed VA claims, had his last exam last week, he is hoping he will receive a decision soon. Damian believes he has ADD. He is anxious, easily irritated, marriage is strained, mood is not good, I am worried about things, and I don't understand why this is happening . Damian is seen about 2x/m at the [facility], I guess it's going okay, I am not really sure what we are doing, I plan to talk to him and ask him for more direction . would like to meet w a psychiatrist. He is cooperative, friendly, easily speaks about himself and the situations. He is understandably frustrated by the job situation, and concerned for his family and their finances. He is second guessing himself and his work abilities bc of all the rejection. He is also a little overwhelmed w all of the appointments he has had recently. consults submitted. /es/ ALEJANDRO Reaves CHART WRITER Signed: 06/24/2023 15:03 JUNE NASH [place]
--- OUTSIDE RECORDS SUMMARY | 2024-02-16 07:30 | XMS_ITS | Encounter Summary ---
Author Name [facility] [place] [facility] [place] Organization [facility] [place] Address [address] [place] [address] Support Name Relationship Address Phone BRYANT SRIRAM Next of Kin [address] [place] [address] HURTADO, SRIRAM Emergency Contact [address] [place] [address] Selected Encounter This section includes the information on record at [place] for the Encounter. Date/Time Encounter Type Encounter Description Reason Provider Source Jun 22, 2023 10:27 AM COMMUNITY/WORK REINTEGRATION TELEPHONE/ VOC ASSISTANCE ICD-10-CM Z56.0 Unemployment, unspecified ITALO MAGANA Judith Encounter Template Text not used by [place] Assessments - Encounter Diagnoses This section includes the primary and secondary diagnoses documented for the Encounter. Date/Time Primary/Secondary Diagnosis Diagnosis Name Provider Source Jun 22, 2023 10:27 AM PRIMARY Unemployment, unspecified JULIO MAGANA [facility] Plan of Treatment: Future Appointments (+ 6 months) and Future Tests (+/- 45 days) The Plan of Treatment section includes future care activities for the patient from all [place] treatmentfacilities. This section includes future appointments and future orders which are active, pending or scheduled. Future Appointments This section includes appointments that were scheduled to occur 6 months from the date of the Encounter, up to a maximum of 20 appointments. The data comes from all [place] treatment facilities. Appointment Date/Time Appointment Type Appointme nt Facility Name Jun 23, 2023 08:00 AM AMBULATORY - MEDICINE [facility] Jun 24, 2023 08:00 AM AMBULATORY - PSYCHIATRY [facility] July 07, 2023 10:00 AM AMBULATORY - NONE [facility] [place] [facility] July 16, 2023 08:30 AM [facility] 20, [facility]23 02:00 PM [facility] July 21, 2023 10:00 AM AMBULATORY - MEDICINE [facility] [place] [facility] July 22, 2023 12:00 PM AMBULATORY - MEDICINE [facility] [place] [facility] July 24, 2023 02:00 PM AMBULATORY - MEDICINE [facility] [place] [facility] July 31, 2023 10:00 AM AMBULATORY - NONE [facility] [place] [facility] Aug 06, 2023 09:30 AM AMBULATORY - MEDICINE [facility] [place] [facility] Aug 11, 2023 10:00 AM AMBULATORY - PSYCHIATRY [facility] [place] [facility] Sep 11, 2023 08:30 AM AMBULATORY - REHAB MEDICIN E [facility] [place] [facility] Sep 21, 2023 11:00 AM AMBULATORY - MEDICINE [facility] [place] [facility] Sep 23, 2023 04:00 PM AMBULATORY - REHAB MEDICIN E [facility] [place] [facility] Sep 24, 2023 02:00 PM AMBULATORY - PSYCHIATRY [facility] [place] [facility] Sep 25, 2023 08:15 AM AMBULATORY - MEDICINE [facility] [place] [facility] Sep 28, 2023 11:00 AM AMBULATORY - MEDICINE [facility] [place] [facility] Oct 01, 2023 03:30 PM AMBULATORY - REHAB MEDICIN E [facility] [place] [facility] Oct 05, 2023 11:00 AM AMBULATORY - MEDICINE [facility] [place] [facility] Oct 06, 2023 04:30 PM AMBULATORY - REHAB MEDICIN E [facility] [place] [facility] Radiology Reports: +/- 30 days of [...] the Encounter. The data comes from all [place] treatment facilities. Date/Time Radiology Report Provider Source July 22, 2023 12:00 PM OUTSIDE MRI CERVIC AL SPINE: MACK HURTADO [id number] -1975 M Exm Date: JULY 22, 2023@12:00 Req Phys: MARTI BUTLER Loc: CWM/SO/PACT 3 WH (Req'g Loc) Img Loc: OUTSIDE GENERAL RADIOLOGY Service: Unknown (Case [id number] COMPLETE) OUTSIDE MRI CERVICAL SPINE (RAD Detailed) CPT:59080 Reason for Study: cerv radiculopathy Clinical History: paresthesias both hands radial distribution Report Status: Electronically Filed Date Reported: JULY 22, 2023 Report: Community care exam; see CPRS/JLV for outside radiology report/results Impression: Community care exam; see CPRS/JLV for outside radiology report/results Primary Diagnostic Code: VERIFIED BY: / *ELECTRONICALLY FILED* [place] [facility] [place] [facility] Encounter Notes: All associated encounter notes This section contains the clinical notes associated to the Encounter. Date/Time Encounter Note(s) Provider Source Jun 22, 2023 10:29 AM VOCATIONAL REHABILITATION NOTE: LOCAL TITLE: VOCATIONAL REHABILITATION/SCREENING NOTE STANDARD TITLE: VOCATIONAL REHABILITATION NOTE DATE OF NOTE: JUN 22, 2023@10:29 ENTRY DATE: JUN 22, 2023@10:29:46 AUTHOR: NEPTALI MAGANA: URGENCY: STATUS: COMPLETED seen for Vocational Rehabilitation screen from consult placed by Jessica. [place] seen on May by the screening team for approximately 15. Chart was reviewed. was given information about the program including: admission criteria, waitlist management (when necessary), length of stay and program expectations/requirements . A medical prescriber has determined that is able to work in the community or hospital without restrictions: [X]Yes [ ]No Comments: The is actively engaged in mental health and/or substance use disorder treatment. [X]Yes [ ]No Comments: [place] is committed to using the Vocational Rehabilitation service to obtain community based competitive employment: [X]Yes [ ]No Comments: (last worked, current skills, vocational goal) Does have any current safety concerns including suicidal ideations/attempts [ ]Yes [X]No Comments: [place] is eligible for and has been offered the following Vocational Rehabilitation services: [ ] Workshop [ ] Transitional Work [X] Vocational Assistance [X] EB Supported Employment [place] Preference: Comments: n/a /cherri/ JULIO LOCK WIND TUNNEL TECHNICIAN Signed: 06/22/2023 10:30 JULIO MAGANA [facility] Jun 22, 2023 10:27 AM VOCATIONAL REHABILITATION CONSULT: [facility] TITLE: CONSULT REPORT/VOCATIONAL ASSESSMENT STANDARD TITLE: VOCATIONAL REHABILITATION CONSULT DATE OF NOTE: JUN 22, 2023@10:27 ENTRY DATE: JUN 22, 2023@10:27:52 AUTHOR: NEPTALI MAGANA COSIGNER: URGENCY: STATUS: COMPLETED VRS called for screening and found eligible for CBES. Intake scheduled for Sunday 06/25. See screening note /cherri/ JULIO LOCK WIND TUNNEL TECHNICIAN Signed: 06/22/2023 10:29 JULIO MAGANA [facility]
--- OUTSIDE RECORDS SUMMARY | 2024-02-16 07:30 | XMS_ITS | Encounter Summary ---
Author Name [facility] [place] Organization [facility] [place] Address [address] [place] [address] Support Name Relationship Address Phone BRYANT SRIRAM Next of Kin [address] [place] [address] DIANE, SRIRAM Emergency Contact [address] [place] [address] Selected Encounter This section includes the information on record at [place] for the Encounter. Date/Time Encounter Type Encounter Description Reason Provider Source Jun 26, 2023 02:38 PM COMMUNITY/WORK REINTEGRATION COMMTY BASED EMPLOY [employer] CBES ICD-10-CM Z56.0 Unemployment, unspecified ITALO MAGANA Judith Encounter Template Text not used by [place] Assessments - Encounter Diagnoses This section includes the primary and secondary diagnoses documented for the Encounter. Date/Time Primary/Secondary Diagnosis Diagnosis Name Provider Source Jun 26, 2023 02:48 PM PRIMARY Unemployment, unspecified JULIO MAGANA [facility] Plan of Treatment: Future Appointments (+ 6 months) and Future Tests (+/- 45 days) The Plan of Treatment section includes future care activities for the patient from all [place] treatmentfacilities. This section includes future appointments and future orders which are active, pending or scheduled. Future Appointments This section includes appointments that were scheduled to occur 6 months from the date of the Encounter, up to a maximum of 20 appointments. The data comes from all [place] treatment facilities. Appointment Date/Time Appointment Type Appointme nt Facility Name July 07, 2023 10:00 AM AMBULATORY - NONE [facility] July 16, 2023 08:30 AM AMBULATORY - PSYCHIATRY [facility] July 20, 2023 02:00 PM AMBULATORY - MEDICINE [facility] [place] July 21, 2023 10:00 AM AMBULATORY - MEDICINE [facility] [place] [facility] July 22, 2023 12:00 PM AMBULATORY - MEDICINE [facility] [place] [facility] July 24, 2023 02:00 PM AMBULATORY - MEDICINE [facility] [place] [facility] July 31, 2023 10:00 AM AMBULATORY - NONE [facility] [place] [facility] Aug 06, 2023 09:30 AM AMBULATORY - MEDICINE [facility] [place] [facility] Aug 11, 2023 10:00 AM AMBULATORY - PSYCHIATRY [facility] [place] [facility] Sep 11, 2023 08:30 AM AMBULATORY - REHAB MEDICIN E [facility] [place] [facility] Sep 21, 2023 11:00 AM AMBULATORY - MEDICINE [facility] [place] [facility] Sep 23, 2023 04:00 PM AMBULATORY - REHAB MEDICIN E [facility] [place] [facility] Sep 24, 2023 02:00 PM AMBULATORY - PSYCHIATRY [facility] [place] [facility] Sep 25, 2023 08:15 AM AMBULATORY - MEDICINE [facility] [place] [facility] Sep 28, 2023 11:00 AM AMBULATORY - MEDICINE [facility] [place] [facility] Oct 01, 2023 03:30 PM AMBULATORY - REHAB MEDICIN E [facility] [place] [facility] Oct 05, 2023 11:00 AM AMBULATORY - MEDICINE [facility] [place] [facility] Oct 06, 2023 04:30 PM AMBULATORY - REHAB MEDICIN E [facility] [place] [facility] Oct 13, 2023 04:30 PM AMBULATORY - REHAB MEDICIN E [facility] [place] [facility] Oct 15, 2023 01:30 PM AMBULATORY - REHAB MEDICIN E [facility] [place] [facility] Radiology Reports: +/- 30 days of the [...] the Encounter. The data comes from all [place] treatment facilities. Date/Time Radiology Report Provider Source July 22, 2023 12:00 PM OUTSIDE MRI CERVIC AL SPINE: MACK DIANE [id number] -1975 M Exm Date: JULY 22, 2023@12:00 Req Phys: MARTI BUTLER Loc: CWM/SO/PACT 3 WH (Req'g Loc) Img Loc: OUTSIDE GENERAL RADIOLOGY Service: Unknown (Case [id number] COMPLETE) OUTSIDE MRI CERVICAL SPINE (RAD Detailed) CPT:59226 Reason for Study: cerv radiculopathy Clinical History: paresthesias both hands radial distribution Report Status: Electronically Filed Date Reported: JULY 22, 2023 Report: Community care exam; see CPRS/JLV for outside radiology report/results Impression: Community care exam; see CPRS/JLV for outside radiology report/results Primary Diagnostic Code: VERIFIED BY: / *ELECTRONICALLY FILED* [place] [facility] Encounter Notes: All associated encounter notes This section contains the clinical notes associated to the Encounter. Date/Time Encounter Note(s) Provider Source Jun 26, 2023 02:49 PM VOCATIONAL REHABILITATION NOTE: LOCAL TITLE: VOCATIONAL REHABILITATION/VOCATIONAL PLAN STANDARD TITLE: VOCATIONAL REHABILITATION NOTE DATE OF NOTE: JUN 26, 2023@14:49 ENTRY DATE: JUN 26, 2023@14:49:27 AUTHOR: NEPTALI MAGANAIGNER: URGENCY: STATUS: COMPLETED C[facility] TW VOCATIONAL PLAN MACK DIANE Dulce [id number] Clinic or Program: Community Based Employment Services DATE: May DATE PATIENT ENTERED PROGRAM: Start Date: May End Date: VOCATIONAL BOOSTER PUMP OPERATOR: Tori Cardenas TEAM MEMBERS:MARCELO Lock HEALTH/SAFETY RISKS (DANGER TO SELF AND OTHERS): No This IS/NOT the first admission to CWT: is S.N.A.P. 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 Why is this important to me? Financial stability B. Goal/What do I want? Meaningful career C. Action/Objectve How will I achieve my goals? 1. [facility] 2. Work with [facility] 3. Work with community based employment via [facility] 4. Attend events in the community 5. D. Daily Habits/How will I stay on task? Work with [facility] E. Intervention: N/A PLAN REVIEW DATE: 2 months after initial plan During the vocational plan development [facility] staff confirmed completion of C[facility] TW work site training and orientation with the . The demonstrated understanding of work site assignment, requirements and safety policies. /cherri/ JULIO LOCK COMMUNICATIONS PROFESSIONAL Signed: 06/26/2023 14:52 JULIO MAGANA [place] [facility] [place] [facility] Jun 26, 2023 02:38 PM VOCATIONAL REHABILITATION INITIAL EVALUATION NOTE: LOCAL TITLE: VOCATIONAL REHABILITATION/INTAKE STANDARD TITLE: VOCATIONAL REHABILITATION INITIAL EVALUATION NOT DATE OF NOTE: JUN 26, 2023@14:38 ENTRY DATE: JUN 26, 2023@14:38:18 AUTHOR: NEPTALI MAGANA COSIGNER: URGENCY: STATUS: COMPLETED VOCATIONAL REHABILITATION/INTAKE Has :Mack Diane DATE ENTERED PROGRAM: May CLINIC OR PROGRAM: Community Based Employment Services VOCATIONAL BOOSTER PUMP OPERATOR: Tori Cardenas TEAM MEMBERS: MARCELO Lock IDENTIFYING STATEMENT PROFILE: 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 CV recently seperated in July of 2023. 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 Possibly looking to attend college in the near future once they obtain employment. PATIENT AGE: 47 PATIENT SEX: MALE MARITAL STATUS: MARITAL STATUS - PATIENT RACE: WHITE PRIMARY ELIGIBILTY CODE - NSC: OTHER SOURCES OF INCOME: Awaiting [place] adjudication PERIOD OF SERVICE(Dates): PERIOD OF SERVICE - WAR ASSISTIVE TECHNOLOGY/ACCOMODATIONS: No HEALTH/SAFETY RISKS (DANGER TO SELF AND OTHERS): No This IS/NOT the first admission to CWT: is S.N.A.P. 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 Does the patient have Food Allergies? No If Yes, then detail the food allergies: 2. Does the patient report unintentional weight loss OR gain of at least 10 pounds in the last three months? No If Yes, then specify: 3. Does the patient report decreased food intake and/or appetite? No 4. Are there dental problems that impact ability to consume food? No If Yes, then describe: 5. Does the patient report eating habits or behaviors that may be indicators of an eating disorder (e.g. binging or induced vomiting)? No If Yes, then describe: If Nutritional Screen is Positive, refer to Nutrition Clinic MENTAL HEALTH DIAGNOSIS AND RELEVANT MEDICAL CONDITIONS: n/a PAIN SCREENING: (0 = No Pain, 10 = Worst Pain Ever) 1 INFORMED CONSENT TO PARTICIPATE IN INTAKE: During the intake, an overview of the Vocational Rehabilitation Program was provided to , including a review of the Vocational Rehabilitation Handbook. demonstrated an understanding of the contents of the handbook and agreed to abide by all policies and procedures. If participating in CWT-TW submitted the Direct Deposit Authorization Form. VOCATIONAL FORMULATION AND JUSTIFICATION FOR ADMISSION: n/a PLACEMENT: n/a /cherri/ JULIO LOCK COMMUNICATIONS PROFESSIONAL Signed: 06/26/2023 14:48 JULIO MAGANA [place] [facility]
--- OUTSIDE RECORDS SUMMARY | 2024-02-16 07:30 | XMS_ITS ---
Author Name [facility] [place] [facility] [place] [facility] [place] Address [address] [place] [id number] Support Name Relationship Address Phone HURTADOSRIRAM MAZARIEGOS Next of Kin [address] [place] [address] HURTADOQING MAZARIEGOSHER Emergency Contact [address] [place] [address] Selected Encounter This section includes the information on record at [place] for the Encounter. Date/Time Encounter Type Encounter Description Reason Provider Source Jun 19, 2023 10:00 AM EXERCISE CLASS HEALTH/WELLBEING SRVS ICD-10-CM Y93.42 Activity, lashon BLACKWELLREBAIMEE CA IHE Encounter Template Text not used by [place] Assessments - Encounter Diagnoses This section includes the primary and secondary diagnoses documented for the Encounter. Date/Time Primary/Secondary Diagnosis Diagnosis Name Provider Source Jun 19, 2023 02:13 PM PRIMARY Activity, yoga [facility]EL [facility] Plan of Treatment: Future Appointments (+ 6 months) and Future Tests (+/- 45 days) The Plan of Treatment section includes future care activities for the patient from all [place] treatmentfacilities. This section includes future appointments and future orders which are active, pending or scheduled. Future Appointments This section includes appointments that were scheduled to occur 6 months from the date of the Encounter, up to a maximum of 20 appointments. The data comes from all [place] treatment facilities. Appointment Date/Time Appointment Type Appointme nt Facility Name Jun 23, 2023 08:00 AM AMBULATORY - MEDICINE [facility] [place] [facility] Jun 24, 2023 08:00 AM AMBULATORY - PSYCHIATRY [facility] July 07, 2023 10:00 AM AMBULATORY - NONE [place] [facility] [facility] July 16, 2023 08:30 AM [facility] 20[facility] 2023 02:00 PM [facility] July 21, 2023 10:00 AM [facility]ICINE [facility] [place] [place] [facility] July 22, 2023 12:00 PM AMBULATORY - MEDICINE [facility] [place] [facility] July 24, 2023 02:00 PM AMBULATORY - MEDICINE [facility] [place] [facility] July 31, 2023 10:00 AM AMBULATORY - NONE [facility] [place] [place] [facility] Aug 06, 2023 09:30 AM AMBULATORY - MEDICINE [facility] [place] [place] [facility] Aug 11, 2023 10:00 AM AMBULATORY - PSYCHIATRY [facility] [place] [facility] Sep 11, 2023 08:30 AM AMBULATORY - REHAB MEDICIN E [facility] [place] [facility] Sep 21, 2023 11:00 AM AMBULATORY - MEDICINE [facility] [place] [place] [facility] Sep 23, 2023 04:00 PM AMBULATORY - REHAB MEDICIN E [facility] [place] [facility] Sep 24, 2023 02:00 PM AMBULATORY - PSYCHIATRY [facility] [place] [facility] Sep 25, 2023 08:15 AM AMBULATORY - MEDICINE [facility] [place] [facility] Sep 28, 2023 11:00 AM AMBULATORY - MEDICINE [facility] [place] [facility] Oct 01, 2023 03:30 PM AMBULATORY - REHAB MEDICIN E [facility] [place] [facility] Oct 05, 2023 11:00 AM AMBULATORY - MEDICINE [facility] [place] [facility] Oct 06, 2023 04:30 PM AMBULATORY - REHAB MEDICIN E [facility] [place] [facility] Encounter Notes: All associated encounter notes This section contains the clinical notes associated to the Encounter. Date/Time Encounter Note(s) Provider Source Jun 19, 2023 02:55 PM RECREATIONAL THERA PY CONSULT: LOCAL TITLE: CONSULT REPORT/YOGA STANDARD TITLE: RECREATIONAL THERAPY CONSULT DATE OF NOTE: JUN 19, 2023@14:55 ENTRY DATE: JUN 19, 2023@14:55:41 AUTHOR: LIBBY BLACKWELL EXP COSIGNER: URGENCY: STATUS: COMPLETED [place] attended Group Yoga on 06/19/2023. Please see Yoga Wellbeing Note. /cherri/ ABIMBOLA BALDWINYT-500 Magnetic Tape Winder Signed: 06/19/2023 14:56 LIBBY BLACKWELL [place] [facility] [place] [facility] Jun 19, 2023 10:00 AM RECREATIONAL THERA PY NOTE: LOCAL TITLE: YOGA WELLBEING STANDARD TITLE: RECREATIONAL THERAPY NOTE DATE OF NOTE: JUN 19, 2023@10:00 ENTRY DATE: JUN 19, 2023@14:10:03 AUTHOR: LIBBY BLACKWELL EXP COSIGNER: URGENCY: STATUS: COMPLETED Group Virtual Yoga Class Total time: 60 minutes Class Focus: Breath awareness, mindful movement, relaxation, and gratitude to balance the nervous system and enhance overall well-being. The Practice: 3-part breath Pranayama for utilizing more of the lungs and calming the nervous system; postures that included, but were not limited to, moving warm-up, half sun salutation, sun salutation A variation, tree, triangle pose, wide leg forward bend, Bruning 2, Extended Side Angle Pose, Intense Side Stretch, Bruning 1, plank, cobra, locust, downward facing dog, wisdom pose, contralateral limb raises, head to knee pose, bridge, reclined twist, and knees to chest; Systematic Relaxation; and Gratitude. Modifications were geared toward the 's individual needs and preferences. [facility] Video Connect (VVC) Standard Documentation VVC Clinician Resources Only: E911 (Emergency Call Relay Center): [phone] National Veterans Crisis Line - 988 then press #1. [facility] Suicide Coordinator [phone], Ext. [phone]; Back-up Ext. [phone] [place] Police, [place], [place] [phone] Introduction: Visit is being conducted by [place] [facility]. [place] identified with 2 identifiers: [X] Full Name [X] Date of [ ] VA ID Card Emergency Plan: confirmed and/or provided the following information in case of emergency or technology failure. PATIENT PHONE as stated in CPRS PHONE NUMBER [CELLULAR] as stated in CPRS Is patient phone number correct, if not, enter below: 's phone number: NAME ADDRESS CITY, STATE, ZIP [place]'s present location and address for appointment: as stated in cprs 's emergency contact name and phone number: as stated in cprs reported that location is private and safe: Yes Informed Consent: [place] informed of the risks and benefits of Telehealth video care. has the right to refuse video services. If refuses video visit, a [id number] visit will be scheduled. [place] verbalized consent for this video visit: Yes provided consent for any other persons present for visit: N/A If yes, who and relationship to patient: Secure visit: Visit was locked for security and privacy: Yes Damian was one of fifteen participants in Group Yoga. He logged into class and logged off shortly after. He was invited to return to class next month. /cherri/ PAULINE BALDWIN-500 Magnetic Tape Winder Signed: 06/19/2023 14:45 LIBBY BLACKWELL [place] [facility]
[2024-02-16 07:31] VITALS: BP 130/80; PULSE 90; O2SAT 96; BMI 33.4
--- OUTSIDE RECORDS SUMMARY | 2024-02-16 07:31 | XMS_ITS ---
Author Name [facility] [place] [facility] [place] Organization [facility] [place] Address [address] [place] [address] Support Name Relationship Address Phone HURTADOQING MAZARIEGOSHER Next of Kin [address] [place] [address] HURTADOQING MAZARIEGOSHER Emergency Contact [address] [place] [address] Selected Encounter This section includes the information on record at [place] for the Encounter. Date/Time Encounter Type Encounter Description Reason Pro vider Source July 20, 2023 12:00 AM Outpatient Encounter EVENT (HISTORICAL) IHE Encounter Template Text not used by [place] Plan of Treatment: Future Appointments (+ 6 months) and Future Tests (+/- 45 days) The Plan of Treatment section includes future care activities for the patient from all [place] treatmentfacilities. This section includes future appointments and future orders which are active, pending or scheduled. Future Appointments This section includes appointments that were scheduled to occur 6 months from the date of the Encounter, up to a maximum of 20 appointments. The data comes from all [place] treatment facilities. Appointment Date/Time Appointment Type Appointme nt Facility Name July 21, 2023 10:00 AM AMBULATORY - MEDICINE [place] [facility] July 22, 2023 12:00 PM AMBULATORY - MEDICINE [place] [facility] [place] [place] [facility] July 24, 2023 02:00 PM AMBULATORY - MEDICINE [place] [facility] [place] [place] [facility] July 31, 2023 10:00 AM AMBULATORY - NONE [place] [facility] [place] [facility] Aug 06, 2023 09:30 AM AMBULATORY - MEDICINE [place] [facility] [place] [place] [facility] Aug 11, 2023 10:00 AM AMBULATORY - PSYCHIATRY [place] [facility] [place] [facility] Sep 11, 2023 08:30 AM AMBULATORY - REHAB MEDICIN E [facility] [place] [facility] Sep 21, 2023 11:00 AM AMBULATORY - MEDICINE [facility] [place] [facility] Sep 23, 2023 04:00 PM AMBULATORY - REHAB MEDICIN E [facility] [place] [facility] Sep 24, 2023 02:00 PM AMBULATORY - PSYCHIATRY [facility] [place] [facility] Sep 25, 2023 08:15 AM AMBULATORY - MEDICINE [facility] [place] [facility] Sep 28, 2023 11:00 AM AMBULATORY - MEDICINE [facility] [place] [facility] Oct 01, 2023 03:30 PM AMBULATORY - REHAB MEDICIN E [facility] [place] [facility] Oct 05, 2023 11:00 AM AMBULATORY - MEDICINE [facility] [place] [facility] Oct 06, 2023 04:30 PM AMBULATORY - REHAB MEDICIN E [facility] [place] [place] [facility] Oct 13, 2023 04:30 PM AMBULATORY - REHAB MEDICIN E [facility] [facility] Oct 15, 2023 01:30 PM AMBULATORY - REHAB MEDICIN E [facility] [place] [facility] Oct 26, 2023 11:00 AM AMBULATORY - MEDICINE [facility] [place] [facility] Oct 26, 2023 03:30 PM AMBULATORY - MEDICINE [facility] [place] [facility] Oct 27, 2023 04:30 PM AMBULATORY - REHAB MEDICIN E [facility] [place] [facility] Active, Pending, and Scheduled Orders This section includes a listing of several types of active, pending, and scheduled orders, including clinic medications orders, diagnostic test orders, procedure orders and consult orders; where the start date of the order is 45 days before the date of the Encounter or 45 days after the date of theEncounter. The data comes from all [place] treatment facilities. Test Date/Time Test Type Test Details Facility Name Aug 30, 2023 12:00 AM Laboratory - Chemi stry Order CALCIUM BLOOD (SST-SERUM) [facility] Aug 30, 2023 12:00 AM Laboratory - Chemi stry Order URIC ACID BLOOD (SST-SERUM) [facility] Aug 30, 2023 12:00 AM Laboratory - Chemi stry Order PSA BLOOD (SST-SERUM) [facility] Aug 30, 2023 12:00 AM Laboratory - Chemi stry Order FERRITIN BLOOD (SST-SERUM) [facility] Aug 30, 2023 12:00 AM Laboratory - Chemi stry Order VITAMIN D (25-OH) BLOOD (SST-SERUM) [facility] Aug 30, 2023 12:00 AM Laboratory - Chemi stry Order VITAMIN B12 BLOOD (SST-SERUM) [facility] Aug 30, 2023 12:00 AM Laboratory - Chemi stry Order BASIC METABOLIC PANEL (fasting) BLOOD (SST-SERUM) [facility] Aug 30, 2023 12:00 AM Laboratory - Chemi stry Order LIPID PANEL FASTING BLOOD (SST-SERUM) [facility] Aug 30, 2023 12:00 AM Laboratory - Chemi stry Order LIVER FUNCTION BLOOD (SST-SERUM) [facility] Aug 30, 2023 12:00 AM Laboratory - Chemi stry Order CBC AND DIFF (AUTO) BLOOD (LAV-BLOOD) [facility] Aug 30, 2023 12:00 AM Laboratory - Chemi stry Order HEMOGLOBIN A1C PANEL BLOOD (LAV-BLOOD) [facility] Aug 30, 2023 12:00 AM Laboratory - Chemi stry Order TSH BLOOD (SST-SERUM) [facility] Radiology Reports: +/- 30 days of the [...] the Encounter. The data comes from all [place] treatment facilities. Date/Time Radiology Report Provider Source July 22, 2023 12:00 PM OUTSIDE MRI CERVIC AL SPINE: MACK HURTADO [id number] -[id number] M Ex Date: JULY 22, 2023@12:00 Req Phys: MARTI BUTLER Loc: CWM/SO/PACT 3 WH (Req'g Loc) Img Loc: OUTSIDE GENERAL RADIOLOGY Service: Unknown (Case [id number] COMPLETE) OUTSIDE MRI CERVICAL SPINE (RAD Detailed) CPT:99786 Reason for Study: cerv radiculopathy Clinical History: paresthesias both hands radial distribution Report Status: Electronically Filed Date Reported: JULY 22, 2023 Report: Community care exam; see CPRS/JLV for outside radiology report/results Impression: Community care exam; see CPRS/JLV for outside radiology report/results Primary Diagnostic Code: VERIFIED BY: / *ELECTRONICALLY FILED* [facility]
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
--- OUTSIDE RECORDS SUMMARY | 2024-02-16 07:31 | XMS_ITS | Encounter Summary ---
Author Name [facility] [place] Organization [facility] [place] [facility] [place] Address [address] [place] [address] Support Name Relationship Address Phone HURTADOQING MAZARIEGOSHER Next of Kin [address] [place] [address] BRYANT SRIRAM Emergency Contact [address] [place] [address] Selected Encounter This section includes the information on record at [place] for the Encounter. Date/Time Encounter Type Encounter Description Reason Pro vider Source Jun 23, 2023 12:00 PM Outpatient Encounter COMMUNITY CARE CONSULT IHE Encounter Template Text not used by [place] Plan of Treatment: Future Appointments (+ 6 [...] Appointment Type Appointme nt Facility Name Jun 24, 2023 08:00 AM AMBULATORY - [facility]IATRY [facility] July 07, 2023 10:00 AM AMBULATORY - NONE [facility] [place] [facility] July 16, 2023 08:30 AM AMBULATORY - PS[facility]CHIATRY [facility] July 20, 2023 02:00 PM AMBULATORY - MEDICINE [facility] July 21, 2023 10:00 AM [place] [facility] [place] [facility] July 22, 2023 12:00 PM [facility]UL[facility]ORY [facility] [place] [facility] July 24, 2023 02:00 PM [place]ORY [place] [facility] [place] [facility] July 31, 2023 10:00 AM AMBULATORY - NONE [facility] [place] [facility] Aug 06, 2023 09:30 AM AM[facility]ULATORY [facility]INE [facility] [place] [facility] Aug 11, 2023 10:00 AM AMBULATORY [facility] [place] [facility] Sep 11, 2023 08:30 AM AMBULATORY - REHAB MEDICIN [facility] [place] [facility] Sep 21, 2023 11:00 AM AMBULATORY - [facility]ICINE [facility] [place] [facility] Sep 23, 2023 04:00 PM AMBULATORY - REHAB MEDICIN E [facility] [place] [facility] Sep 24, 2023 02:00 PM AMBULATORY - [facility]IATRY [facility] [place] [facility] Sep 25, 2023 08:15 AM AMBULATORY [facility]ICINE [facility] [place] [facility] Sep 28, 2023 11:00 AM AMBULATORY - [facility]INE [facility] [place] [facility] Oct 01, 2023 03:30 PM AMBULATORY - REHAB MEDICIN E [facility] [place] [facility] Oct 05, 2023 11:00 AM AMBULATORY - [facility]ICINE [facility] [place] [facility] Oct 06, 2023 04:30 PM AMBULATORY - REHAB MEDICIN E [facility] [place] [facility] Oct 13, 2023 04:30 PM AMBULATORY - REHAB MEDICIN E [facility] [place] [facility] Radiology Reports: +/- 30 days of [...] the Encounter. The data comes from all [place] treatment facilities. Date/Time Radiology Report Provider Source July 22, 2023 12:00 PM OUTSIDE MRI CERVIC AL SPINE: MACK HURTADO Dulce [id number] -1975 M Exm Date: JULY 22, 2023@12:00 Req Phys: MARTI BUTLER Loc: CWM/SO/PACT 3 WH (Req'g Loc) Img Loc: OUTSIDE GENERAL RADIOLOGY Service: Unknown (Case [id number] COMPLETE) OUTSIDE MRI CERVICAL SPINE (RAD Detailed) CPT:10374 Reason for Study: cerv radiculopathy Clinical History: paresthesias both hands radial distribution Report Status: Electronically Filed Date Reported: JULY 22, 2023 Report: Community care exam; see CPRS/JLV for outside radiology report/results Impression: Community care exam; see CPRS/JLV for outside radiology report/results Primary Diagnostic Code: VERIFIED BY: / *ELECTRONICALLY FILED* [facility] Encounter Notes: All associated encounter notes This section contains the clinical notes associated to the Encounter. Date/Time Encounter Note(s) Provider Source Jun 23, 2023 12:00 PM NONVA CONSULT: LOCAL TITLE: COMMUNITY CARE-CONSULT RESULT NOTE STANDARD TITLE: NONVA CONSULT DATE OF NOTE: JUN 23, 2023@12:00 ENTRY DATE: JUN 30, 2023@11:57:58 AUTHOR: LAYLA CHIN EXP COSIGNER: URGENCY: STATUS: COMPLETED VistA Imaging - Scanned Document SCANNED DOCUMENT SIGNATURE NOT REQUIRED Electronically Filed: 06/30/2023 by: LAYLA [facility]
--- OUTSIDE RECORDS SUMMARY | 2024-02-16 07:31 | XMS_ITS | Encounter Summary ---
Author Name [facility] [place] [facility] [place] [facility] [place] Address [address] [place] [id number] Support Name Relationship Address Phone HURTADOQING MAZARIEGOSHER Next of Kin [address] [place] [address] HURTADOQING MAZARIEGOSHER Emergency Contact [address] [place] [address] Selected Encounter This section includes the information on record at [place] for the Encounter. Date/Time Encounter Type Encounter Description Reason Provider Source Jun 26, 2023 03:12 PM PSYTX W PT 45 MINUTES GENERAL INTERNAL MEDICINE ICD-10-CM F43.12 Post-traumatic stress disorder, chronic [place] IHE Encounter Template Text not used by [place] Assessments - Encounter Diagnoses This section includes the primary and secondary diagnoses documented for the Encounter. Date/Time Primary/Secondary Diagnosis Diagnosis Name Provider Source Jun 26, 2023 03:16 PM PRIMARY Post-traumatic stress disorder, chronic MUSA BERNAL IA [facility] Plan of Treatment: Future Appointments (+ 6 months) and Future Tests (+/- 45 days) The Plan of Treatment section includes future care activities for the patient from all [place] treatmentfacilities. This section includes future appointments and future orders which are active, pending or scheduled. Future Appointments This section includes appointments that were scheduled to occur 6 months from the date of the Encounter, up to a maximum of 20 appointments. The data comes from all [place] treatment facilities. Appointment Date/Time Appointment Type Appointme nt Facility Name July 07, 2023 10:00 AM AMBULATORY - [facility] July 16, 2023 08:30 AM AMBULATORY - PS[facility]CHIATRY [facility] July 20, 2023 02:00 PM AMBULATORY - MEDICINE [facility] July 21, 2023 10:00 AM AMBULATORY [facility]ICINE [facility] [place] [facility] July 22, 2023 12:00 PM AMBULATORY - [facility]ICINE [facility] [place] [facility] July 24, 2023 02:00 PM AMBULATORY - MEDICINE [facility] [place] [facility] July 31, 2023 10:00 AM AMBULATORY - NONE [facility] [place] [facility] Aug 06, 2023 09:30 AM AMBULATORY [facility]ICINE [facility] [place] [facility] Aug 11, 2023 10:00 AM AMBULATORY - PS[facility]CHIATRY [facility] [place] [facility] Sep 11, 2023 08:30 AM AMBULATORY - REHAB MEDICIN E [facility] [place] [facility] Sep 21, 2023 11:00 AM AMBULATORY - MEDICINE [facility] [place] [facility] Sep 23, 2023 04:00 PM AMBULATORY - REHAB MEDICIN E [facility] [place] [facility] Sep 24, 2023 02:00 PM AMBULATORY - PS[facility]CHIATRY [facility] [place] [facility] Sep 25, 2023 08:15 AM AMBULATORY - MEDICINE [facility] [place] [facility] Sep 28, 2023 11:00 AM AMBULATORY - MEDICINE [facility] [place] [facility] Oct 01, 2023 03:30 PM AMBULATORY - REHAB MEDICIN E [facility] [place] [facility] Oct 05, 2023 11:00 AM AMBULATORY - MEDICINE [facility] [place] [facility] Oct 06, 2023 04:30 PM AMBULATORY - REHAB MEDICIN E [facility] [place] [facility] Oct 13, 2023 04:30 PM AMBULATORY - REHAB MEDICIN E [facility] [place] [facility] Oct 15, 2023 01:30 PM AMBULATORY - REHAB MEDICIN E [facility] [place] [facility] Radiology Reports: +/- 30 days of [...] the Encounter. The data comes from all [place] treatment facilities. Date/Time Radiology Report Provider Source July 22, 2023 12:00 PM OUTSIDE MRI CERVIC AL SPINE: MACK HURTADO [id number] -1975 M Exm Date: JULY 22, 2023@12:00 Req Phys: MARTI BUTLER Loc: CWM/SO/PACT 3 WH (Req'g Loc) Img Loc: OUTSIDE GENERAL RADIOLOGY Service: Unknown (Case [id number] COMPLETE) OUTSIDE MRI CERVICAL SPINE (RAD Detailed) CPT:84560 Reason for Study: cerv radiculopathy Clinical History: paresthesias both hands radial distribution Report Status: Electronically Filed Date Reported: JULY 22, 2023 Report: Community care exam; see CPRS/JLV for outside radiology report/results Impression: Community care exam; see CPRS/JLV for outside radiology report/results Primary Diagnostic Code: VERIFIED BY: / *ELECTRONICALLY FILED* [place] [facility] [place] [facility] Encounter Notes: All associated encounter notes This section contains the clinical notes associated to the Encounter. Date/Time Encounter Note(s) Provider Source Jun 26, 2023 03:12 PM OEF/OIF NOTE: LOCAL TITLE: OEF-OIF CM SOCIAL WORK NOTE STANDARD TITLE: OEF/OIF NOTE DATE OF NOTE: JUN 26, 2023@15:12 ENTRY DATE: JUN 26, 2023@15:12:56 AUTHOR: JENA BERNAL COSIGNER: URGENCY: STATUS: COMPLETED [place] and ad writer met on [facility]. [place] appropriately dressed/groomed, euthymic mood, congruent affect, linear thought process, A&Ox3, denied any thoughts or intent of harm to self or other. completed 2nd trial of Alpha-Stim during our meeting today. [place] was reminded about potential benefits of Alpha-Stim for managing/reducing anxiety, depression, pain, as well as promoting sleep. [place] was reminded that improvement of depression and/or insomnia symptoms often requires at least 3 months of consistent use (daily 20 min sessions), but that alleviation of anxiety and pain symptoms can be more immediate. Potential contraindications of Alpha-Stim device use were reviewed, and verbalized understanding of them. [place] was reminded that 3 trials are needed prior to being issued an Alpha-Stim device, and is in agreement. Electrologist reviewed what to expect, and demonstrated how to set-up and utilize the Alpha-Stim. utilized the device for 20 minutes and reports noting a calming and relaxing affect pretty quickly into the session. [place] was notified to watch for any negative symptoms for the rest of the day, including headache or nausea. denied experiencing negative side effects following previous trial, in fact reporting a positive effect on his mood and energy levels, as well as a reduction in anxiety sx for the first 24 hours following trial. Next and final trial scheduled for 07/07/23. /cherri/ RENALDO Poole LICENSED CLINICAL SLAB STRIPPER Signed: 06/26/2023 15:16 JENA BERNAL [place] [facility]
--- OUTSIDE RECORDS SUMMARY | 2024-02-16 07:31 | XMS_ITS ---
Author Name [facility] [place] [facility] [place] Address [address] [place] [id number] Support Name Relationship Address Phone HURTADOQING MAZARIEGOSHER Next of Kin [address] [place] [address] SRIRAM HURTADO Emergency Contact [address] [place] [address] Selected Encounter This section includes the information on record at [place] for the Encounter. Date/Time Encounter Type Encounter Description Reason Provider Source July 20, 2023 02:05 PM Outpatient Encounter PRIMARY CARE/MEDICINE MARTI BUTLER Encounter Template Text not used by [place] Plan of Treatment: Future Appointments (+ 6 months) and Future Tests (+/- 45 days) The Plan of Treatment section includes future care activities for the patient from all [place] treatmentfacilities. This section includes future appointments and future orders which are active, pending or scheduled. Future Appointments This section includes appointments that were scheduled to occur 6 months from the date of the Encounter, up to a maximum of 20 appointments. The data comes from all [place] treatment facilities. Appointment Date/Time Appointment Type Appointme nt Facility Name July 21, 2023 10:00 AM AMBULATORY - MEDICINE [facility] July 22, 2023 12:00 PM AMBULATORY - MEDICINE [facility] July 24, 2023 02:00 PM AMBULATORY - MEDICINE [place] [facility] July 31, 2023 10:00 AM AMBULATORY - NONE [facility] Aug 06, 2023 09:30 AM AMBULATORY - MEDICINE IN [facility] Aug 11, 2023 10:00 AM AMBULATORY - PSYCHIATRY [facility] Sep 11, 2023 08:30 AM AMBULATORY - REHAB MEDICIN E [facility] Sep 21, 2023 11:00 AM AMBULATORY - MEDICINE [facility] Sep 23, 2023 04:00 PM AMBULATORY - REHAB MEDICIN E [facility] Sep 24, 2023 02:00 PM AMBULATORY - PSYCHIATRY [facility] Sep 25, 2023 08:15 AM AMBULATORY - MEDICINE [facility] Sep 28, 2023 11:00 AM AMBULATORY - MEDICINE [facility] Oct 01, 2023 03:30 PM AMBULATORY - REHAB MEDICIN E [facility] Oct 05, 2023 11:00 AM AMBULATORY - MEDICINE [facility] Oct 06, 2023 04:30 PM AMBULATORY - REHAB MEDICIN E [facility] Oct 13, 2023 04:30 PM AMBULATORY - REHAB MEDICIN E [facility] Oct 15, 2023 01:30 PM AMBULATORY - REHAB MEDICIN E [facility] Oct 26, 2023 11:00 AM AMBULATORY - MEDICINE [facility] Oct 26, 2023 03:30 PM AMBULATORY - MEDICINE [facility] Oct 27, 2023 04:30 PM AMBULATORY - REHAB MEDICIN E [facility] Active, Pending, and Scheduled Orders This section includes a listing of several types of active, pending, and scheduled orders, including clinic medications orders, diagnostic test orders, procedure orders and consult orders; where the start date of the order is 45 days before the date of the Encounter or 45 days after the date of theEncounter. The data comes from all [place] treatment facilities. Test Date/Time Test Type Test Details Facility Name Aug 30, 2023 12:00 AM Laboratory - Chemi stry Order CALCIUM BLOOD (SST-SERUM) [facility] Aug 30, 2023 12:00 AM Laboratory - Chemi stry Order URIC ACID BLOOD (SST-SERUM) [facility] Aug 30, 2023 12:00 AM Laboratory - Chemi stry Order PSA BLOOD (SST-SERUM) [facility] Aug 30, 2023 12:00 AM Laboratory - Chemi stry Order FERRITIN BLOOD (SST-SERUM) [facility] Aug 30, 2023 12:00 AM Laboratory - Chemi stry Order VITAMIN D (25-OH) BLOOD (SST-SERUM) [facility] Aug 30, 2023 12:00 AM Laboratory - Chemi stry Order VITAMIN B12 BLOOD (SST-SERUM) [facility] Aug 30, 2023 12:00 AM Laboratory - Chemi stry Order BASIC METABOLIC PANEL (fasting) BLOOD (SST-SERUM) [facility] Aug 30, 2023 12:00 AM Laboratory - Chemi stry Order LIPID PANEL FASTING BLOOD (SST-SERUM) [facility] Aug 30, 2023 12:00 AM Laboratory - Chemi stry Order LIVER FUNCTION BLOOD (SST-SERUM) [facility] Aug 30, 2023 12:00 AM Laboratory - Chemi stry Order CBC AND DIFF (AUTO) BLOOD (LAV-BLOOD) [facility] Aug 30, 2023 12:00 AM Laboratory - Chemi stry Order HEMOGLOBIN A1C PANEL BLOOD (LAV-BLOOD) [facility] Aug 30, 2023 12:00 AM Laboratory - Chemi stry Order TSH BLOOD (SST-SERUM) [facility] Radiology Reports: +/- 30 days [...] the Encounter. The data comes from all [place] treatment facilities. Date/Time Radiology Report Provider Source July 22, 2023 12:00 PM OUTSIDE MRI CERVIC AL SPINE: MACK HURTADO [id number] -[id number] M Exm Date: JULY 22, 2023@12:00 Req Phys: MARTI BUTLER Loc: C[facility]/SO/PACT 3 WH (Req'g Loc) Img Loc: OUTSIDE GENERAL RADIOLOGY Service: Unknown (Case [id number] COMPLETE) OUTSIDE MRI CERVICAL SPINE (RAD Detailed) CPT:19380 Reason for Study: cerv radiculopathy Clinical History: paresthesias both hands radial distribution Report Status: Electronically Filed Date Reported: JULY 22, 2023 Report: Community care exam; see [facility] for outside radiology report/results Impression: Community care exam; see [facility] for outside radiology report/results Primary Diagnostic Code: VERIFIED BY: / *ELECTRONICALLY FILED* [facility] Encounter Notes: All associated encounter notes This section contains the clinical notes associated to the Encounter. Date/Time Encounter Note(s) Provider Source July 20, 2023 02:24 PM ADDENDUM: LOCAL TITLE: Addendum STANDARD TITLE: ADDENDUM DATE OF NOTE: JULY 20, 2023@14:24:57 ENTRY DATE: JULY 20, 2023@14:24:57 AUTHOR: FIDELINA KULKARNI COSIGNER: URGENCY: STATUS: COMPLETED Forwarding to [facility] for PACT COREMAKER SUPERVISOR 1 /cherri/ SIMRAN KULKARNI Advanced Plate Molder Signed: 07/20/2023 14:25 Receipt Acknowledged By: 07/20/2023 15:36 /cherri/ CLEVE MARY ADVANCE QUANTITATIVE EQUITY HEAD --- Original Document --- 07/20/23 CLINICAL REMINDERS/NURSING: [place] here to establish PCP at [place]. Advance Directive Screen MH AD: Patient does not have a completed advance directive on file at any facility, [place] or outside. S/he is not interested in completing one at this time. The patient received education about Advance Directives and written notification of his/her rights. Avg Risk Colorectal Cancer Screen: AVERAGE RISK colorectal cancer screening is due based on information available to this clinical reminder CRC screen completed elsewhere and waiting for results. Results expected: Colonoscopy, Other Comment: [facility] for endoscopy and Colonoscopy. Per Vet DX: reflux/GERD,dysphasia ans small hiatil hernia,internal hemmorroids. Hepatitis B Serology/Immunization: The patient declines to receive the recommended dose of Hepatitis B vaccine. Immunization: HEP B, UNSPECIFIED FORMULATION Refusal Reason: PATIENT DECISION Patient refuses all immunization(s) in the HepB group Date Documented: 07/20/23 14:19 Hepatitis C Testing: Patient declines HCV lab test. Preferred Language: What is your, or your caregiver's preferred language for healthcare? Preferred Language: Ghanaian Influenza Immunization: No influenza vaccination was received during the recent influenza season. COVID-19 Immunization: Vet reports had #2 Moderna only Refused Moderna Monovalent COVID-19 vaccine Immunization: COVID-19 (MODERNA), MRNA, LNP-S, PF, 50 MCG/0.5 ML (AGES 12+ YEARS) Refusal Reason: PATIENT DECISION Patient refuses all immunization(s) in the COVID-19 group Date Documented: 07/20/23 14:20 Tdap Immunization: unsure last date-Within 10 Yrs The patient declines to receive the recommended dose of Tdap vaccine. Immunization: TDAP Refusal Reason: PATIENT DECISION Patient refuses all immunization(s) in the TDAP group Date Documented: 07/20/23 14:20 RHS Screen: RHS Screen Session Format: Face to Face Environmental Check Upon inquiry, the individual reports that the environment is safe to proceed. Informed Consent to Screen and Document The individual consents to proceed with screening. The individual consents to documentation of responses. PRIMARY SCREEN: In the past 12 months, how often did a current or former intimate partner (e.g., boyfriend, girlfriend, , , sexual partner): 1. Scream or curse at you Never 2. Insult or talk down to you Never 3. Threaten you with harm Never 4. Physically hurt you Never 5. Force or pressure you to have sexual contact against your will, or when you were unable to say no Never ?? The HITS tool (items 1-4 above) is [place] copyright protected by Fabian Garduno MD, and the user has full rights to use it throughout the [place] system. PRIMARY SCREEN RESULT: The Primary Screen is NEGATIVE. The individual answered never to all forms of IPV above (i.e., answered never to all 5 items) The individual accepts education and/or resources: No EDUCATION: Other: N/A /cherri/ FAUSTO BAIRES LPN LICENSED PRACTICAL NURSE Signed: 07/20/2023 14:22 07/20/2023 ADDENDUM STATUS: COMPLETED Avg Risk Colorectal Cancer Screen: AVERAGE RISK colorectal cancer screening is due based on information available to this clinical reminder CRC screen completed elsewhere and waiting for results. Results expected: Colonoscopy, Other Comment: [facility] for endoscopy and Colonoscopy. Per Vet DX: reflux/GERD,dysphasia ans small hiatil hernia,internal hemmorroids. Will include PACT MSA to obtain above GI notes. Thank You /cherri/ FAUSTO BAIRES LPN LICENSED PRACTICAL NURSE Signed: 07/20/2023 14:22 Receipt Acknowledged By: 07/20/2023 14:24 /cherri/ SIMRAN KULKARNI Advanced Plate Molder 07/20/2023 ADDENDUM STATUS: COMPLETED Hepatitis B Immunization: Hepatitis B vaccine given previously - written records available Hepatitis B vaccine - standard 3 dose series (Energix, Recombivax, etc) Documented: HEP B, ADULT Historical Date Administered: Jun 10, 2007 Series: Series 1 Outside Location: [facility] Records Information Source: FROM OTHER REGISTRY Documented: HEP B, ADULT Historical Date Administered: Nov 24, 2007 Series: Series 2 Outside Location: [facility] Information Source: FROM OTHER REGISTRY Documented: HEP B, ADULT Historical Date Administered: July 13, 2008 Series: Series 3 Outside Location: [facility] Information Source: FROM OTHER REGISTRY /cherri/ FAUSTO BAIRES LPN LICENSED PRACTICAL NURSE Signed: 07/20/2023 14:28 07/20/2023 ADDENDUM STATUS: COMPLETED THIS ACUTE CARE SURGEON SENT FAX REQUEST TO [facility] [phone] /cherri/ CLEVE MARY ADVANCE QUANTITATIVE EQUITY HEAD Signed: 07/20/2023 15:24 SIMRAN KULKARNI July 20, 2023 02:22 PM ADDENDUM: LOCAL TITLE: Addendum STANDARD TITLE: ADDENDUM DATE OF NOTE: JULY 20, 2023@14:22:18 ENTRY DATE: JULY 20, 2023@14:22:19 AUTHOR: FAUSTO BAIRES EXP COSIGNER: URGENCY: STATUS: COMPLETED Avg Risk Colorectal Cancer Screen: AVERAGE RISK colorectal cancer screening is due based on information available to this clinical reminder CRC screen completed elsewhere and waiting for results. Results expected: Colonoscopy, Other Comment: [facility] for endoscopy and Colonoscopy. Per Vet DX: reflux/GERD,dysphasia ans small hiatil hernia,internal hemmorroids. Will include PACT MSA to obtain above GI notes. Thank You /cherri/ FAUSTO BAIRES LPN LICENSED PRACTICAL NURSE Signed: 07/20/2023 14:22 Receipt Acknowledged By: 07/20/2023 14:24 /cherri/ SIMRAN KULKARNI Advanced Plate Molder --- Original Document --- 07/20/23 CLINICAL REMINDERS/NURSING: here to establish PCP at [place]. Advance Directive Screen MH AD: Patient does not have a completed advance directive on file at any facility, [place] or outside. S/he is not interested in completing one at this time. The patient received education about Advance Directives and written notification of his/her rights. Avg Risk Colorectal Cancer Screen: AVERAGE RISK colorectal cancer screening is due based on information available to this clinical reminder CRC screen completed elsewhere and waiting for results. Results expected: Colonoscopy, Other Comment: [facility] for endoscopy and Colonoscopy. Per Vet DX: reflux/GERD,dysphasia ans small hiatil hernia,internal hemmorroids. Hepatitis B Serology/Immunization: The patient declines to receive the recommended dose of Hepatitis B vaccine. Immunization: HEP B, UNSPECIFIED FORMULATION Refusal Reason: PATIENT DECISION Patient refuses all immunization(s) in the HepB group Date Documented: 07/20/23 14:19 Hepatitis C Testing: Patient declines HCV lab test. Preferred Language: What is your, or your caregiver's preferred language for healthcare? Preferred Language: Ghanaian Influenza Immunization: No influenza vaccination was received during the recent influenza season. COVID-19 Immunization: Vet reports had #2 Moderna only Refused Moderna Monovalent COVID-19 vaccine Immunization: COVID-19 (MODERNA), MRNA, LNP-S, PF, 50 MCG/0.5 ML (AGES 12+ YEARS) Refusal Reason: PATIENT DECISION Patient refuses all immunization(s) in the COVID-19 group Date Documented: 07/20/23 14:20 Tdap Immunization: unsure last date-Within 10 Yrs The patient declines to receive the recommended dose of Tdap vaccine. Immunization: TDAP Refusal Reason: PATIENT DECISION Patient refuses all immunization(s) in the TDAP group Date Documented: 07/20/23 14:20 RHS Screen: RHS Screen Session Format: Face to Face Environmental Check Upon inquiry, the individual reports that the environment is safe to proceed. Informed Consent to Screen and Document The individual consents to proceed with screening. The individual consents to documentation of responses. PRIMARY SCREEN: In the past 12 months, how often did a current or former intimate partner (e.g., boyfriend, girlfriend, , , sexual partner): 1. Scream or curse at you Never 2. Insult or talk down to you Never 3. Threaten you with harm Never 4. Physically hurt you Never 5. Force or pressure you to have sexual contact against your will, or when you were unable to say no Never ?? The HITS tool (items 1-4 above) is [place] copyright protected by Fabian Garduno MD, and the user has full rights to use it throughout the [place] system. PRIMARY SCREEN RESULT: The Primary Screen is NEGATIVE. The individual answered never to all forms of IPV above (i.e., answered never to all 5 items) The individual accepts education and/or resources: No EDUCATION: Other: N/A /es/ FAUSTO BAIRES LPN LICENSED PRACTICAL NURSE Signed: 07/20/2023 14:22 07/20/2023 ADDENDUM STATUS: UNSIGNED You may not VIEW this UNSIGNED Addendum. FAUSTO BAIRES MARATHON July 20, 2023 02:05 PM PREVENTIVE MEDICIN E NURSING NOTE: LOCAL TITLE: CLINICAL REMINDERS/NURSING STANDARD TITLE: PREVENTIVE MEDICINE NURSING NOTE DATE OF NOTE: JULY 20, 2023@14:05 ENTRY DATE: JULY 20, 2023@14:05:07 AUTHOR: FAUSTO BAIRES EXP COSIGNER: URGENCY: STATUS: COMPLETED CLINICAL REMINDERS/NURSING Has ADDENDA here to establish PCP at [place]. Advance Directive Screen AD: Patient does not have a completed advance directive on file at any facility, [place] or outside. S/he is not interested in completing one at this time. The patient received education about Advance Directives and written notification of his/her rights. Avg Risk Colorectal Cancer Screen: AVERAGE RISK colorectal cancer screening is due based on information available to this clinical reminder CRC screen completed elsewhere and waiting for results. Results expected: Colonoscopy, Other Comment: [facility] for endoscopy and Colonoscopy. Per Vet DX: reflux/GERD,dysphasia ans small hiatil hernia,internal hemmorroids. Hepatitis B Serology/Immunization: The patient declines to receive the recommended dose of Hepatitis B vaccine. Immunization: HEP B, UNSPECIFIED FORMULATION Refusal Reason: PATIENT DECISION Patient refuses all immunization(s) in the HepB group Date Documented: 07/20/23 14:19 Hepatitis C Testing: Patient declines HCV lab test. Preferred Language: What is your, or your caregiver's preferred language for healthcare? Preferred Language: Ghanaian Influenza Immunization: No influenza vaccination was received during the recent influenza season. COVID-19 Immunization: Vet reports had #2 Moderna only Refused Moderna Monovalent COVID-19 vaccine Immunization: COVID-19 (MODERNA), MRNA, LNP-S, PF, 50 MCG/0.5 ML (AGES 12+ YEARS) Refusal Reason: PATIENT DECISION Patient refuses all immunization(s) in the COVID-19 group Date Documented: 07/20/23 14:20 Tdap Immunization: unsure last date-Within 10 Yrs The patient declines to receive the recommended dose of Tdap vaccine. Immunization: TDAP Refusal Reason: PATIENT DECISION Patient refuses all immunization(s) in the TDAP group Date Documented: 07/20/23 14:20 RHS Screen: RHS Screen Session Format: Face to Face Environmental Check Upon inquiry, the individual reports that the environment is safe to proceed. Informed Consent to Screen and Document The individual consents to proceed with screening. The individual consents to documentation of responses. PRIMARY SCREEN: In the past 12 months, how often did a current or former intimate partner (e.g., boyfriend, girlfriend, , , sexual partner): 1. Scream or curse at you Never 2. Insult or talk down to you Never 3. Threaten you with harm Never 4. Physically hurt you Never 5. Force or pressure you to have sexual contact against your will, or when you were unable to say no Never ?? The HITS tool (items 1-4 above) is [place] copyright protected by Fabian Garduno MD, and the user has full rights to use it throughout the [place] system. PRIMARY SCREEN RESULT: The Primary Screen is NEGATIVE. The individual answered never to all forms of IPV above (i.e., answered never to all 5 items) The individual accepts education and/or resources: No EDUCATION: Other: N/A /cherri/ FAUSTO BAIRES LPN LICENSED PRACTICAL NURSE Signed: 07/20/2023 14:22 07/20/2023 ADDENDUM STATUS: COMPLETED Avg Risk Colorectal Cancer Screen: AVERAGE RISK colorectal cancer screening is due based on information available to this clinical reminder CRC screen completed elsewhere and waiting for results. Results expected: Colonoscopy, Other Comment: [facility] for endoscopy and Colonoscopy. Per Vet DX: reflux/GERD,dysphasia ans small hiatil hernia,internal hemmorroids. Will include PACT MSA to obtain above GI notes. Thank You /janet BAIRES LPN LICENSED PRACTICAL NURSE Signed: 07/20/2023 14:22 Receipt Acknowledged By: 07/20/2023 14:24 /cherri/ SIMRAN KULKARNI Advanced Plate Molder 07/20/2023 ADDENDUM STATUS: COMPLETED Forwarding to [facility] for PACT COREMAKER SUPERVISOR 1 /cherri/ SIMRAN KULKARNI Advanced Plate Molder Signed: 07/20/2023 14:25 Receipt Acknowledged By: * AWAITING SIGNATURE * CLEVE MARY 07/20/2023 ADDENDUM STATUS: COMPLETED Hepatitis B Immunization: Hepatitis B vaccine given previously - written records available Hepatitis B vaccine - standard 3 dose series (Energix, Recombivax, etc) Documented: HEP B, ADULT Historical Date Administered: Jun 10, 2007 Series: Series 1 Outside Location: [facility] Records Information Source: FROM OTHER REGISTRY Documented: HEP B, ADULT Historical Date Administered: Nov 24, 2007 Series: Series 2 Outside Location: [facility] Information Source: FROM OTHER REGISTRY Documented: HEP B, ADULT Historical Date Administered: July 13, 2008 Series: Series 3 Outside Location: [facility] Information Source: FROM OTHER REGISTRY /cherri/ FAUSTO BAIRES LPN LICENSED PRACTICAL NURSE Signed: 07/20/2023 14:28 07/20/2023 ADDENDUM STATUS: COMPLETED THIS ACUTE CARE SURGEON SENT FAX REQUEST TO [facility] [phone] /es/ CLEVE MARY ADVANCE QUANTITATIVE EQUITY HEAD Signed: 07/20/2023 15:24 FAUSTO BAIRES
--- OUTSIDE RECORDS SUMMARY | 2024-02-16 07:31 | XMS_ITS | Encounter Summary ---
Author Name [facility] Organization [facility] Address [address] [place] [id number] Support Name Relationship Address Phone HURTADOQING MAZARIEGOSHER Next of Kin [address] [place] [address] HURTADOQING MAZARIEGOSHER Emergency Contact [address] [place] [address] Selected Encounter This section includes the information on record at NH for the Encounter. Date/Time Encounter Type Encounter Description Reason Provider Source July 20, 2023 02:00 PM OFFICE O/P EST LOW 20 MIN PRIMARY CARE/MEDICINE ICD-10-CM M54.12 Radiculopathy, cervical region MARTI LOO Encounter Template Text not used by [facility] Assessments - Encounter Diagnoses This section includes the primary and secondary diagnoses documented for the Encounter. Date/Time Primary/Secondary Diagnosis Diagnosis Name Provider Source July 20, 2023 02:52 PM PRIMARY Radiculopathy, cervical region MARTI LOO July 20, 2023 02:52 PM SECONDARY Contact with and exposure to other hazardous substances MARTI LOO July 20, 2023 02:52 PM SECONDARY Neuralgia and neuritis, unspecified MARTI LOO Plan of Treatment: Future Appointments (+ 6 [...] - MEDICINE [facility] [place] [facility] July 22, 2023 12:00 PM AMBULATORY - MEDICINE [facility] [place] [facility] July 24, 2023 02:00 PM AMBULATORY - MEDICINE [facility] [place] [facility] July 31, 2023 10:00 AM AMBULATORY - NONE [facility] [place] [facility] Aug 06, 2023 09:30 AM AMBULATORY - MEDICINE [facility] [place] [facility] Aug 11, 2023 10:00 AM AMBULATORY - PSYCHIATRY [facility] [place] [facility] Sep 11, 2023 08:30 AM AMBULATORY - REHAB MEDICIN E [facility] [place] [facility] Sep 21, 2023 11:00 AM AMBULATORY - MEDICINE [facility] [place] [facility] Sep 23, 2023 04:00 PM AMBULATORY - REHAB MEDICIN E [facility] [place] [facility] Sep 24, 2023 02:00 PM AMBULATORY - PSYCHIATRY [facility] [place] [facility] Sep 25, 2023 08:15 AM AMBULATORY - MEDICINE [facility] [place] [facility] Sep 28, 2023 11:00 AM AMBULATORY - MEDICINE [facility] [place] [facility] Oct 01, 2023 03:30 PM AMBULATORY - REHAB MEDICIN E [facility] [place] [facility] Oct 05, 2023 11:00 AM AMBULATORY - MEDICINE [facility] [place] [facility] Oct 06, 2023 04:30 PM AMBULATORY - REHAB MEDICIN E [facility] [place] [facility] Oct 13, 2023 04:30 PM AMBULATORY - REHAB MEDICIN E [facility] [place] [facility] Oct 15, 2023 01:30 PM AMBULATORY - REHAB MEDICIN E [facility] [place] [facility] Oct 26, 2023 11:00 AM AMBULATORY - MEDICINE [facility] [place] [facility] Oct 26, 2023 03:30 PM AMBULATORY - MEDICINE [facility] [place] [facility] Oct 27, 2023 04:30 PM AMBULATORY - REHAB MEDICIN E [facility] [place] [facility] Active, Pending, and Scheduled Orders This section includes a listing of several types of active, pending, and scheduled orders, including clinic medications orders, diagnostic test orders, procedure orders and consult orders; where the start date of the order is 45 days before the date of the Encounter or 45 days after the date of theEncounter. The data comes from all [facility] facilities. Test Date/Time Test Type Test Details Facility Name Aug 30, 2023 12:00 AM Laboratory - Chemi stry Order URIC ACID BLOOD (SST-SERUM) [facility] Aug 30, 2023 12:00 AM Laboratory - Chemi stry Order CALCIUM BLOOD (SST-SERUM) [facility] Aug 30, 2023 12:00 AM Laboratory - Chemi stry Order PSA BLOOD (SST-SERUM) [facility] Aug 30, 2023 12:00 AM Laboratory - Chemi stry Order FERRITIN BLOOD (SST-SERUM) [facility] Aug 30, 2023 12:00 AM Laboratory - Chemi stry Order VITAMIN D (25-OH) BLOOD (SST-SERUM) [facility] Aug 30, 2023 12:00 AM Laboratory - Chemi stry Order VITAMIN B12 BLOOD (SST-SERUM) [facility] Aug 30, 2023 12:00 AM Laboratory - Chemi stry Order BASIC METABOLIC PANEL (fasting) BLOOD (SST-SERUM) [facility] Aug 30, 2023 12:00 AM Laboratory - Chemi stry Order LIPID PANEL FASTING BLOOD (SST-SERUM) [facility] Aug 30, 2023 12:00 AM Laboratory - Chemi stry Order LIVER FUNCTION BLOOD (SST-SERUM) [facility] Aug 30, 2023 12:00 AM Laboratory - Chemi stry Order HEMOGLOBIN A1C PANEL BLOOD (LAV-BLOOD) [facility] Aug 30, 2023 12:00 AM Laboratory - Chemi stry Order CBC AND DIFF (AUTO) BLOOD (LAV-BLOOD) [facility] Aug 30, 2023 12:00 AM Laboratory - Chemi stry Order TSH BLOOD (SST-SERUM) [facility] Vital Signs: All taken on the encounter date This section contains inpatient and outpatient Vital Signs collected on the date of the Encounter. Date/Time Temperature Pulse Blood Pressure Respiratory Rate SP02 Pain Height Weight Body Mass Index Source July 20, 2023 02:23 PM 97.2 80 119/82 20 97 69 227 34 [facility] IELD Social History: Smoking Status (Most current) and Tobacco Use (All prior to encounter date) This section includes the most current, and the historical, smoking and tobacco- related health factors from the NH facility where the Encounter took place. Current Smoking Status This section includes the most current smoking, or tobacco-related health factor, from the [facility] facility where the Encounter took place. Date/Time Current Smoking Status Comment Facil ity July 16, 2023 08:30 AM VA-TOBACCO NEVER USED [facility] Radiology Reports: +/- 30 days of the [...] the Encounter. The data comes from all [place] treatment facilities. Date/Time Radiology Report Provider Source July 22, 2023 12:00 PM OUTSIDE MRI CERVIC AL SPINE: MACK HURTADO Dulce [id number] -[id number] M Exm Date: JULY 22, 2023@12:00 Req Phys: MARTI LOO Loc: CWM/SO/PACT 3 WH (Req'g Loc) Img Loc: OUTSIDE GENERAL RADIOLOGY Service: Unknown (Case [id number] COMPLETE) OUTSIDE MRI CERVICAL SPINE (RAD Detailed) CPT:21532 Reason for Study: cerv radiculopathy Clinical History: paresthesias both hands radial distribution Report Status: Electronically Filed Date Reported: JULY 22, 2023 Report: Community care exam; see CPRS/JLV for outside radiology report/results Impression: Community care exam; see CPRS/JLV for outside radiology report/results Primary Diagnostic Code: VERIFIED BY: / *ELECTRONICALLY FILED* [facility] Encounter Notes: All associated encounter notes This section contains the clinical notes associated to the Encounter. Date/Time Encounter Note(s) Provider Source Dec 08, 2023 11:22 AM ACCOUNTING OF DISC LOSURES NOTE: LOCAL TITLE: STATE PRESCRIPTION DRUG MONITORING PROGRAM STANDARD TITLE: ACCOUNTING OF DISCLOSURES NOTE DATE OF NOTE: DEC 08, 2023@11:22:49 ENTRY DATE: DEC 08, 2023@11:22:49 AUTHOR: CIERRA MALONE EXP COSIGNER: MARTI LOO URGENCY: STATUS: COMPLETED This PDMP query was submitted by Cierra Malone on behalf of Marti Loo. The clinical justification for this PDMP query is to review controlled substances prescribed outside of the [facility], and any additional information that may become available, as an important component of standard clinical care, and in accordance with [facility] policy. Patient information was shared with the PDMP [facility] [place]. The VA prescriber, for which I am a delegate, will be alerted of these PDMP findings through co-signature of this progress note. No prescription(s) for controlled substances outside the VA were found in the last 90 days. /cherri/ Cierra Malone RN Registered Nurse (RN) Signed: 12/08/2023 11:22 /cherri/ MARTI LOO PA-C STAFF PHYSICIAN PRODUCTION DESIGNER Cosigned: 12/08/2023 13:01 CIERRA MALONE July 31, 2023 11:09 AM PREVENTIVE MEDICIN E NURSING NOTE: LOCAL TITLE: CLINICAL REMINDERS/NURSING STANDARD TITLE: PREVENTIVE MEDICINE NURSING NOTE DATE OF NOTE: JULY 31, 2023@11:09 ENTRY DATE: JULY 31, 2023@11:09:39 AUTHOR: CIERRA MALONE EXP COSIGNER: URGENCY: STATUS: COMPLETED CLINICAL REMINDERS/NURSING Has ADDENDA Avg Risk Colorectal Cancer Screen: AVERAGE RISK colorectal cancer screening is due based on information available to this clinical reminder Prior/outside colonoscopy results: Repeat 10 yrs Date: April 06, 2023 Colonoscopy reminder set 9 years from JULY 31, 2023. Comments (optional): Repeat Apr 2033 /janet Malone RN Registered Nurse (RN) Signed: 07/31/2023 11:15 07/31/2023 ADDENDUM STATUS: COMPLETED Original report sent to [facility] for scanning /janet Malone RN Registered Nurse (RN) Signed: 07/31/2023 11:17 CIERRA MALONE July 20, 2023 02:33 PM ACCOUNTING OF DISC LOSURES NOTE: LOCAL TITLE: STATE PRESCRIPTION DRUG MONITORING PROGRAM STANDARD TITLE: ACCOUNTING OF DISCLOSURES NOTE DATE OF NOTE: JULY 20, 2023@14:33:49 ENTRY DATE: JULY 20, 2023@14:33:49 AUTHOR: MARTI LOO EXP COSIGNER: URGENCY: STATUS: COMPLETED This PDMP query was submitted by Marti Loo. The clinical justification for this PDMP query is to review controlled substances prescribed outside of the VA, and any additional information that may become available, as an important component of standard clinical care, and in accordance with [facility] policy. [facility] [place]. No prescription(s) for controlled substances outside the VA were found in the last 90 days. /cherri/ MARTI LOO PA-C STAFF PHYSICIAN PRODUCTION DESIGNER Signed: 07/20/2023 14:33 MARTI LOO July 20, 2023 02:21 PM PHYSICIAN ASSISTAN T NOTE: LOCAL TITLE: JYOTI NOTE STANDARD TITLE: PHYSICIAN PRODUCTION DESIGNER NOTE DATE OF NOTE: JULY 20, 2023@14:21 ENTRY DATE: JULY 20, 2023@14:21:27 AUTHOR: MARTI LOO EXP COSIGNER: URGENCY: STATUS: COMPLETED S - c/o numbness thumb, index, middle fingers b/l numbness in both hand feels like in starts in elbow notes neck pain, too PSH: surg release ulnar nerve entrapment bilat yrs ago O - coop A&Ox3 NAD W-N/H/D NECK: nl lordosis no discrete verteb tenderness no pvm tenderness or rigidity F-AROM Dist Neuro RIGHT LEFT Motor C5 (shldr aBd) 5/5 5/5 C6 (wrist ext) 5/5 5/5 C7 (wrist flex, finger ext) 5/5 5/5 C8 (finger flex) 5/5 5/5 T1 (finger aBd, aDd) 5/5 5/5 Sensory hypoesthesias thumb, IF, MF bilat DTR C5 0/4 0/4 C6 0/4 0/4 C7 0/4 0/4 neg [place]ling neg Distraction A/P - 1) Cerv Radiculaopthy vs. 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 Printed information was offered and provided if desired. [place] contaminated water exposure: /caregiver was made aware of educational resources that includes information on presumptive conditions and how to file a claim. Printed information was offered and provided if desired. Other exposures: Comment: cp [place] and burn pit /caregiver was made aware of educational resources and printed information was offered and provided if desired. /caregiver has health or medical concerns related to their concern of environmental exposure. Concern: na Benefits/Claims Questions /caregiver was informed of local point of contact. VA Health Care Enrollment and Eligibility Questions [place]/caregiver was informed of local point of contact. Registry Questions /caregiver was informed of local point of contact. Contact information for local resources: Benefits/Claim for Disability Compensation Questions:National A [place] Healthcare Enrollment: [facility] Eligibility direct dialed at [phone] Registry: [facility] Coordinator ext [phone] The following connections were provided to the /caregiver: Consult/Referral to Registry Program Lipid Screening: Lipid profile ordered at this encounter. Medication Reconciliation: Outpatient: Has the patient been taking medications as documented in the EMLR? YES: The patient has been taking medications as documented in the EMLR. Essential Medication List for Review used to complete this medication reconciliation. INCLUDED IN THIS LIST: Alphabetical list of active outpatient prescriptions dispensed from this VA (local) and dispensed from another VA or DoD facility (remote) as well as inpatient orders (local, pending and active), local clinic medications, locally documented non-VA medications, and local prescriptions that have or been discontinued in the past 90 days. - All changes in medications, including all non-VA/Herbal/OTC medications were entered into CPRS. Changes: nt - If there were any medications the patient should no longer take, they were discontinued. - The patient/caregiver was instructed to update this list, discard old lists, and take this list to the next appointment, whether with a VA or non-VA provider. /cherri/ MARTI LOO PA-C STAFF PHYSICIAN PRODUCTION DESIGNER Signed: 07/20/2023 14:52 MARTI LOO
--- OUTSIDE RECORDS SUMMARY | 2024-02-16 07:31 | XMS_ITS ---
Author Name [facility] [place] Organization [facility] [place] Address [address] [place] [id number] Support Name Relationship Address Phone HURTADOQING MAZARIEGOSHER Next of Kin [address] [place] [address] SRIRAM HURTADO Emergency Contact [address] [place] [address] Selected Encounter This section includes the information on record at [place] for the Encounter. 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 Date/Time Primary/Secondary Diagnosis Diagnosis Name Provider Source July 22, 2023 08:09 AM PRIMARY Other low back pain [facility]US [facility] July 22, 2023 08:09 AM SECONDARY Cervicalgia [facility] July 22, 2023 08:09 AM SECONDARY Pain in thoracic spine JESUS DENT [facility] Plan of Treatment: Future Appointments (+ 6 months) and Future Tests (+/- 45 days) The Plan of Treatment section includes future care activities for the patient from all [place] treatmentfacilities. This section includes future appointments and future orders which are active, pending or scheduled. Future Appointments This section includes appointments that were scheduled to occur 6 months from the date of the Encounter, up to a maximum of 20 appointments. The data comes from all [place] treatment facilities. Appointment Date/Time Appointment Type Appointme nt Facility Name July 22, 2023 12:00 PM AMBULATORY [facility] MEDICINE [facility] [place] [facility] July 24, 2023 02:00 PM AMBULATORY - MEDICINE [facility] [place] [facility] July 31, 2023 10:00 AM AMBULATORY - NONE [facility] [place] [facility] Aug 06, 2023 09:30 AM AMBULATORY - MEDICINE [facility] [place] [facility] Aug 11, 2023 10:00 AM AMBULATORY - PSYCHIATRY [facility] [place] [facility] Sep 11, 2023 08:30 AM AMBULATORY - REHAB MEDICIN E [facility] [place] [facility] Sep 21, 2023 11:00 AM AMBULATORY - MEDICINE [facility] [place] [facility] Sep 23, 2023 04:00 PM AMBULATORY - REHAB MEDICIN E [facility] [place] [facility] Sep 24, 2023 02:00 PM AMBULATORY - PSYCHIATRY [facility] [place] [facility] Sep 25, 2023 08:15 AM AMBULATORY - MEDICINE [facility] [place] [facility] Sep 28, 2023 11:00 AM AMBULATORY - MEDICINE [facility] [place] [facility] Oct 01, 2023 03:30 PM AMBULATORY - REHAB MEDICIN E [facility] [place] [facility] Oct 05, 2023 11:00 AM AMBULATORY - MEDICINE [facility] [place] [facility] Oct 06, 2023 04:30 PM AMBULATORY - REHAB MEDICIN E [facility] [place] [facility] Oct 13, 2023 04:30 PM AMBULATORY - REHAB MEDICIN E [facility] [place] [facility] Oct 15, 2023 01:30 PM AMBULATORY - REHAB MEDICIN E [facility] [place] [facility] Oct 26, 2023 11:00 AM AMBULATORY - MEDICINE [facility] [place] [facility] Oct 26, 2023 03:30 PM AMBULATORY - MEDICINE [facility] [place] [facility] Oct 27, 2023 04:30 PM AMBULATORY - REHAB MEDICIN E [facility] [place] [facility] Nov 05, 2023 03:00 PM AMBULATORY - REHAB MEDICIN E [place] [facility] [place] [facility] Active, Pending, and Scheduled Orders This section includes a listing of several types of active, pending, and scheduled orders, including clinic medications orders, diagnostic test orders, procedure orders and consult orders; where the start date of the order is 45 days before the date of the Encounter or 45 days after the date of theEncounter. The data comes from all [facility]. Test Date/Time Test Type Test Details Facility Name Aug 30, 2023 12:00 AM Laboratory - Chemi stry Order CALCIUM BLOOD (SST-SERUM) [facility] Aug 30, 2023 12:00 AM Laboratory - Chemi stry Order URIC ACID BLOOD (SST-SERUM) [facility] Aug 30, 2023 12:00 AM Laboratory - Chemi stry Order PSA BLOOD (SST-SERUM) [facility] Aug 30, 2023 12:00 AM Laboratory - Chemi stry Order FERRITIN BLOOD (SST-SERUM) [facility] Aug 30, 2023 12:00 AM Laboratory - Chemi stry Order VITAMIN D (25-OH) BLOOD (SST-SERUM) [facility] Aug 30, 2023 12:00 AM Laboratory - Chemi stry Order VITAMIN B12 BLOOD (SST-SERUM) [facility] Aug 30, 2023 12:00 AM Laboratory - Chemi stry Order BASIC METABOLIC PANEL (fasting) BLOOD (SST-SERUM) [facility] Aug 30, 2023 12:00 AM Laboratory - Chemi stry Order LIPID PANEL FASTING BLOOD (SST-SERUM) [facility] Aug 30, 2023 12:00 AM Laboratory - Chemi stry Order LIVER FUNCTION BLOOD (SST-SERUM) [facility] Aug 30, 2023 12:00 AM Laboratory - Chemi stry Order CBC AND DIFF (AUTO) BLOOD (LAV-BLOOD) [facility] Aug 30, 2023 12:00 AM Laboratory - Chemi stry Order HEMOGLOBIN A1C PANEL BLOOD (LAV-BLOOD) [facility] Aug 30, 2023 12:00 AM Laboratory - Chemi stry Order TSH BLOOD (SST-SERUM) [facility] Radiology Reports: +/- 30 days of [...] the Encounter. The data comes from all [place] treatment facilities. Date/Time Radiology Report Provider Source July 22, 2023 12:00 PM OUTSIDE MRI CERVIC AL SPINE: MACK HURTADO [id number] -[id number] M Exm Date: JULY 22, 2023@12:00 Req Phys: MARTI BUTLER Loc: CWM/SO/PACT 3 WH (Req'g Loc) Img Loc: OUTSIDE GENERAL RADIOLOGY Service: Unknown (Case [id number] COMPLETE) OUTSIDE MRI CERVICAL SPINE (RAD Detailed) CPT:66261 Reason for Study: cerv radiculopathy Clinical History: paresthesias both hands radial distribution Report Status: Electronically Filed Date Reported: JULY 22, 2023 Report: Community care exam; see CPRS/JLV for outside radiology report/results Impression: Community care exam; see CPRS/JLV for outside radiology report/results Primary Diagnostic Code: VERIFIED BY: / *ELECTRONICALLY FILED* [place] [facility] [place] [facility] Encounter Notes: All associated encounter notes This section contains the clinical notes associated to the Encounter. 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 He C/O pain in elbow w exercise. Numbness in both forearms into hands and fingers. He/she describes the pain as low back is the worst and a dull burning ache and constant. Rates 5/10 Upper back pain is sharp and a specific spot and intermittent and rates it 3/10 Neck pain feels more muscular and an ache that is less specific and constant 5/10 Vet rates the pain average on the NPRS ?.. Onset: low back 2000 he had to dig a large hole using E-tools and his back seized up; saw doctor at [facility]. [facility] when in a head arm triangle and he felt a pop in mid back ? saw hospital physician in [facility] who adjusted his back. Dry needling at FU visit. The sx return randomly. Palliative: diclophenac, one daily, tramadol before bed probably twice per month Provocative: lbp worse with running or jumping, bending lifting; prolonged standing > 40 min; Upper back pain; neck pain prolonged sitting reading computer working out. Timing: stiff in am Prior treatment: RF ablation 6 months ago in lumbar spine. He C/O heaviness in both legs after the treatment and he had to lift legs higher to avoid tripping. Vet states that he had to think about it when climbing stairs. Cortisone injections in [place] private practice; and in [facility], about 14 injections in low back. Lason one 6 months ago at [facility] Pain management. Physical therapy 2012 - 2019 he saw PT 3 times per week in [facility] - which tends to incr low back pain. He saw a Human performance optimization; Strength learning coach; Dry needling. He felt stronger but his low back did not improve. yet he was able to run. 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 His back felt better but his back felt more unstable. Exercise/Activities: stationary bicycle and street bike. He'll work out for a week and stop due to injury or illness, like flu or feels unwell after working out. He exercises on and off and feeling ill follows the work out. Vet lost 5-7 pounds over weeks. Vetino has tried Yoga at home and likes it. Pertinent Imaging: Reviewed Radiologist's report Patient denies bowel/bladder dysfunction saddle anesthesia, recent fevers, infections, night sweats, unexplained weight loss, dysphagia, dysarthria, numbness, diploplia GOALS: be able to type and read w/o hand numbness; be able to reach and wash his back EXAM Patient enters clinic FWB without need of assistive device - without signs of acute distress, antalgia, or gait alteration Patient appears to be well nourished, is well groomed, pleasant, cooperative in NAD, gait and station unremarkable. AAOx3, speech is fluent. Silverio's: Neg bilat Rhombergs no sway Toe walk/Heel walk General exam findings Cursory PE demonstrates no acute or emergent health conditions. No signs of acute pulmonary distress, breathing is steady and non-labored. No distal edema or signs of peripheral circulatory distress. No saddle paresthesia and no acute bowel or bladder dysfunction. Active LUMBAR ROM limited and provocative into: all motions Extension Flexion Lateral Bending Rotation Motor strength graded 5/5 hip flexion 5/5 5/5 knee extension 5/5 5/5 foot dorsifexion 5/5 5/5 foot inversion 5/5 5/5 foot eversion 5/5 5/5 L4-S1 (B) DTR's at L4 & S1 Sensation grossly intact to light touch L4-S1 (B) No clonus appreciated upon ankle dorsiflexion. Denies calf tenderness (B) Lumbar Orthopedic testing: Valsalva Maneuver: Neg Seated Dural Tension Test neg SLR/seated slump NEG Kemps pos upper back pain Prone knee bending Neg SI provocation testing NEG Fabere's neg Direct S-I palpation Neg Active CERVICAL ROM largely WNL limited and provocative into: left lateral bending provokes numbness in both arms Extension Flexion and R Rotation provokes upper back pain Lateral Bending UE Motor strength graded 5/5 Sensation grossly intact to light touch DTRs 2+ biceps triceps brachioradialis Cervical Orthopedic Tests Compression - Distraction + relief Tinels at wrists NEG Prayer Neg Phalens Neg Soft tissue palpation reveals hypertonicity and tenderness left iliopsoas, Breonna SI jts, PSIS, L/S, mid T/sp and C/sp Prone observe mild rotation of lumbar spine. Motion palpation reveals intersegmental lumbar somatic dysfunction with relative joint hypomobility. IMPRESSION: It is reasonable in this case to apply a conservative course of manual therapy to address myofascial and joint findings while encouraging activity and stretching specific to the patient's presentation. PLAN: Treatment #1. I explained all of this to the patient and the patient seemed to understand. Treatment options from least invasive to most with the associated risks, benefits, alternatives, and potential outcomes were discussed in detail. Potential risks associated with spinal manipulative therapy, the following were shared with the patient: Likely (transient mild post-treatment soreness); Less Likely (Bruising, sprain/strain); Rare but potentially serious (disc herniation, fracture); Extremely Rare but serious (epidural spinal hematoma, cauda equina syndrome). Informed consent obtained to provide management consisting of: ~ Lumbar F/D decompression manipulation with the intended goal of the reduction of LBP and limitations related to LBP through the mechanical action of lumbar flexion with a gentle distractive force. ~ MFR as per palpation (10 minutes) ~ Mobilization/SMT to Cervical, Thoracic, and/or Lumbar and S-I regions in lateral decubitus posture ~ Prone or supine thoracic mobilization/SMT ~ Prone hip flexor/quadriceps stretching as per palpation ~ Supine gluteal stretching as per palpation Treatment: active/corrective NONE Treatment carried out today and well tolerated The prognosis,at this time,is fair to good Short term goals include improvement in excess 25% on regional disability questionnaire and/or NRS over the first 3-4 treatment visits. It was explained to the patient that resolution of soft tissue complaints through conservative management requires compliance with at home recommendations and avoidance of aggravating factors. Self-Care Recommendations: take breaks and change positions frequently ~Patient encouraged to engage in activities such as a walking program with established goals to reduce fear-avoidance behaviors with regard to movement,and improve overall health and fitness. emphasis placed upon function over pain with effort made each day to remain active understanding that normal daily activities may temporarily increase pain experience but are not inherently injurious and should be explored to the extent possible. ~ Activity such as Yoga encouraged to enhance relaxation, flexibility, posture, core stability, balance, and pain modulation. Plan: trial [place] chiro care. Discussed Community care if patient finds that drive is 6o min. Pending NCV order by Dr. Marti Doan at [facility] Visit 1 F/U 4 visits one week intervals Seek urgent care as needed. CMT: chiropractic manipulative therapy SMT: Spinal Manipulative Therapy F/D: Flexion Distraction MFR: Myofascial Release S-I: Sacroiliac MFTP: Myofascial Trigger Point NRS: Numeric Rating Scale N/T: Numbness/Tingling PIR: Post isometric relaxation /es/ JESUS DENT D.C. CHIROPRACTOR Signed: 07/22/2023 08:09 JESUS DENT [place] [facility]
--- OUTSIDE RECORDS SUMMARY | 2024-02-16 07:31 | XMS_ITS | Encounter Summary ---
Author Name Department of [place]a [place]) Organization [place] Address [address] [place] [id number] Support Name Relationship Address Phone HURTADOQING MAZARIEGOSHER Next of Kin [address] [place] [address] BRYANT SRIRAM Emergency Contact [address] [place] [address] Selected Encounter This section includes the information on record at [place] for the Encounter. Date/Time Encounter Type Encounter Description Reason Pro vider Source July 06, 2023 09:25 AM Outpatient Encounter DENTAL IHE Encounter Template Text not used by [place] Plan of Treatment: Future Appointments (+ 6 [...] 10:00 AM AMBULATORY - NONE [place] [facility] [place] [facility] July 16, 2023 08:30 AM AMBULATORY - PSYCHIATRY [facility] July 20, 2023 02:00 PM [facility] July 21, 2023 10:00 AM AMBULATORY - MEDICINE [place] [facility] [place] [facility] July 22, 2023 12:00 PM AMBULATORY - MEDICINE [facility] [place] [facility] July 24, 2023 02:00 PM AMBULATORY - MEDICINE [facility] [place] [facility] July 31, 2023 10:00 AM AMBULATORY - NONE [place] [facility] [place] [facility] Aug 06, 2023 09:30 AM AMBULATORY - MEDICINE [facility] [place] [facility] Aug 11, 2023 10:00 AM AMBULATORY - PSYCHIATRY [facility] [place] [facility] Sep 11, 2023 08:30 AM AMBULATORY - REHAB MEDICIN E [facility] [place] [facility] Sep 21, 2023 11:00 AM AMBULATORY - MEDICINE [facility] [place] [facility] Sep 23, 2023 04:00 PM AMBULATORY - REHAB MEDICIN E [facility] [place] [facility] Sep 24, 2023 02:00 PM AMBULATORY - PSYCHIATRY [facility] [place] [facility] Sep 25, 2023 08:15 AM AMBULATORY - MEDICINE [facility] [place] [facility] Sep 28, 2023 11:00 AM AMBULATORY - MEDICINE [facility] [place] [facility] Oct 01, 2023 03:30 PM AMBULATORY - REHAB MEDICIN E [facility] [place] [facility] Oct 05, 2023 11:00 AM AMBULATORY - MEDICINE [facility] [place] [facility] Oct 06, 2023 04:30 PM AMBULATORY - REHAB MEDICIN E [facility] [place] [facility] Oct 13, 2023 04:30 PM AMBULATORY - REHAB MEDICIN E [facility] [place] [facility] Oct 15, 2023 01:30 PM AMBULATORY - REHAB MEDICIN E [facility] [place] [facility] Radiology Reports: +/- 30 days [...] 12:00 PM OUTSIDE MRI CERVIC AL SPINE: HURTADOMACK Cardona [id number] -1975 M Exm Date: JULY 22, 2023@12:00 Req Phys: MARTI BUTLER Loc: CWM/SO/PACT 3 WH (Req'g Loc) Img Loc: OUTSIDE GENERAL RADIOLOGY Service: Unknown (Case [id number] COMPLETE) OUTSIDE MRI CERVICAL SPINE (RAD Detailed) CPT:48669 Reason for Study: cerv radiculopathy Clinical History: paresthesias both hands radial distribution Report Status: Electronically Filed Date Reported: JULY 22, 2023 Report: Community care exam; see CPRS/JLV for outside radiology report/results Impression: Community care exam; see CPRS/JLV for outside radiology report/results Primary Diagnostic Code: VERIFIED BY: / *ELECTRONICALLY FILED* [facility] Encounter Notes: All associated encounter notes This section contains the clinical notes associated to the Encounter. Date/Time Encounter Note(s) Provider Source July 06, 2023 09:25 AM TELEPHONE ENCOUNTE R NOTE: LOCAL TITLE: TELEPHONE NOTE/SPECIALTY CLINIC STANDARD TITLE: TELEPHONE ENCOUNTER NOTE DATE OF NOTE: JULY 06, 2023@09:25 ENTRY DATE: JULY 06, 2023@09:25:40 AUTHOR: SILVA TORRES EXP COSIGNER: URGENCY: STATUS: COMPLETED Called and spoke with pt to remind them that they have a FTF appt with the dental clinic on 07/07/2023 at 1000. Location was confirmed /cherri/ SILVA TORRES [employer] Signed: 07/06/2023 09:26 SILVA TORRES [facility]
--- OUTSIDE RECORDS SUMMARY | 2024-02-16 07:31 | XMS_ITS ---
Author Name [facility] [place] Organization [place] Address [address] [place] [address] Support Name Relationship Address Phone HURTADOQING MAZARIEGOSHER Next of Kin [address] [place] [address] QING HURTADOHER Emergency Contact [address] [place] [address] Selected Encounter This section includes the information on record at [place] for the Encounter. Date/Time Encounter Type Encounter Description Reason Provider Source July 07, 2023 11:54 AM PSYTX W PT 45 MINUTES GENERAL INTERNAL MEDICINE ICD-10-CM F43.12 Post-traumatic stress disorder, chronic KORTEODOROENKO,MAR IA IHE Encounter Template Text not used by [place] Assessments - Encounter Diagnoses This section includes the primary and secondary diagnoses documented for the Encounter. Date/Time Primary/Secondary Diagnosis Diagnosis Name Provider Source July 07, 2023 12:03 PM PRIMARY Post-traumatic stress disorder, chronic [facility] [facility] Plan of Treatment: Future Appointments (+ 6 months) and Future Tests (+/- 45 days) The Plan of Treatment section includes future care activities for the patient from all [place] treatmentfacilities. This section includes future appointments and future orders which are active, pending or scheduled. Future Appointments This section includes appointments that were scheduled to occur 6 months from the date of the Encounter, up to a maximum of 20 appointments. The data comes from all [place] treatment facilities. Appointment Date/Time Appointment Type Appointme nt Facility Name July 16, 2023 08:30 AM AMBULATORY - PSYCHIATRY [facility] July 20, 2023 02:00 PM AMBULATORY - MEDICINE [facility] July 21, 2023 10:00 AM [facility] [place] [facility] July 22, 2023 12:00 PM AM[facility]ULATORY [facility]IC[facility] [place] [facility] July 24, 2023 02:00 PM AM[facility]ULATORY [facility]ICINE [facility] [place] [facility] July 31, 2023 10:00 AM AMBULATORY - NONE [facility] [place] [facility] Aug 06, 2023 09:30 AM AM[facility]ULATORY [facility]ICINE [facility] [place] [facility] Aug 11, 2023 10:00 AM AMBULATORY - PS[facility]CHIATRY [facility] [place] [facility] Sep 11, 2023 08:30 AM AMBULATORY - REHAB MEDICIN E [facility] [place] [facility] Sep 21, 2023 11:00 AM AMBULATORY - MEDICINE [facility] [place] [facility] Sep 23, 2023 04:00 PM AMBULATORY - REHAB MEDICIN E [facility] [place] [facility] Sep 24, 2023 02:00 PM AMBULATORY - PSYCHIATRY [facility] [place] [facility] Sep 25, 2023 08:15 AM AMBULATORY - MEDICINE [facility] [place] [facility] Sep 28, 2023 11:00 AM AMBULATORY - MEDICINE [facility] [place] [facility] Oct 01, 2023 03:30 PM AMBULATORY - REHAB MEDICIN E [facility] [place] [facility] Oct 05, 2023 11:00 AM AMBULATORY - MEDICINE [facility] [place] [facility] Oct 06, 2023 04:30 PM AMBULATORY - REHAB MEDICIN E [facility] [place] [facility] Oct 13, 2023 04:30 PM AMBULATORY - REHAB MEDICIN E [facility] [place] [facility] Oct 15, 2023 01:30 PM AMBULATORY - REHAB MEDICIN E [facility] [place] [facility] Oct 26, 2023 11:00 AM AMBULATORY - MEDICINE [facility] [place] [facility] Radiology Reports: +/- 30 days [...] the Encounter. The data comes from all [place] treatment facilities. Date/Time Radiology Report Provider Source July 22, 2023 12:00 PM OUTSIDE MRI CERVIC AL SPINE: MACK HURTADO [id number] -1975 M Exm Date: JULY 22, 2023@12:00 Req Phys: MARTI BUTLER Loc: CWM/SO/PACT 3 WH (Req'g Loc) Img Loc: OUTSIDE GENERAL RADIOLOGY Service: Unknown (Case [id number] COMPLETE) OUTSIDE MRI CERVICAL SPINE (RAD Detailed) CPT:37795 Reason for Study: cerv radiculopathy Clinical History: paresthesias both hands radial distribution Report Status: Electronically Filed Date Reported: JULY 22, 2023 Report: Community care exam; see CPRS/JLV for outside radiology report/results Impression: Community care exam; see CPRS/JLV for outside radiology report/results Primary Diagnostic Code: VERIFIED BY: / *ELECTRONICALLY FILED* [place] [facility] [place] [facility] Encounter Notes: All associated encounter notes This section contains the clinical notes associated to the Encounter. Date/Time Encounter Note(s) Provider Source July 07, 2023 11:54 AM OEF/OIF NOTE: LOCAL TITLE: OEF-OIF CM SOCIAL WORK NOTE STANDARD TITLE: OEF/OIF NOTE DATE OF NOTE: JULY 07, 2023@11:54 ENTRY DATE: JULY 07, 2023@11:55:17 AUTHOR: JENA BERNAL COSIGNER: URGENCY: STATUS: COMPLETED and writer producer met on [facility]. appropriately dressed/groomed, euthymic mood, congruent affect, linear thought process, denied thoughts or intent of harm to self or other. completed 3rd trial of Alpha-Stim during our meeting today. Marquette was reminded about potential benefits of Alpha-Stim for managing/reducing anxiety, depression, pain, as well as promoting sleep. Marquette was reminded that improvement of depression and/or insomnia symptoms often requires at least 3 months of consistent use (daily 20 min sessions), but that alleviation of anxiety and pain symptoms can be more immediate. Potential contraindications of Alpha-Stim device use were reviewed, and verbalized understanding of them. Hedge Fund Manager reviewed what to expect, and set up and utilized the device for 20 minutes, reporting a calming and relaxing affect pretty quickly into the session. Marquette was notified to watch for any negative symptoms for the rest of the day, including headache or nausea. Marquette denied experiencing negative side effects following previous trial, in fact reporting a positive effect on his mood and energy levels, as well as a reduction in anxiety sx for the first 24 hours following trial. has completed requisite trials, device ordered. with no unresolved questions or concerns. /cherri/ RENALDO Poole LICENSED CLINICAL LIBRARY TECHNOLOGY INSTRUCTOR Signed: 07/07/2023 12:03 JENA BERNAL [place] [facility]
--- OUTSIDE RECORDS SUMMARY | 2024-02-16 07:32 | XMS_ITS | Encounter Summary ---
Author Name [facility] [place] Organization [place] Address [address] [place] [address] Support Name Relationship Address Phone HURTADOSRIRAM MAZARIEGOS Next of Kin [address] [place] [address] HURTADOSRIRAM MAZARIEGOS Emergency Contact [address] [place] [address] Selected Encounter This section includes the information on record at [place] for the Encounter. 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 Date/Time Primary/Secondary Diagnosis Diagnosis Name Provider Source July 24, 2023 02:28 PM PRIMARY Other low back pain JESUS DENT [facility] July 24, 2023 02:28 PM SECONDARY Pain in thoracic spine JESUS DENT [facility] Plan of Treatment: Future Appointments (+ 6 months) and Future Tests (+/- 45 days) The Plan of Treatment section includes future care activities for the patient from all [place] treatmentfacilities. This section includes future appointments and future orders which are active, pending or scheduled. Future Appointments This section includes appointments that were scheduled to occur 6 months from the date of the Encounter, up to a maximum of 20 appointments. The data comes from all [place] treatment facilities. Appointment Date/Time Appointment Type Appointme nt Facility Name July 31, 2023 10:00 AM AMBULATORY - NONE [facility] Aug 06, 2023 09:30 AM AM[facility]ULATORY - MEDICINE [facility] [place] [facility] Aug 11, 2023 10:00 AM AMBULATORY - PSYCHIATRY [facility] [place] [facility] Sep 11, 2023 08:30 AM AMBULATORY - REHAB MEDICIN E [facility] [place] [facility] Sep 21, 2023 11:00 AM AMBULATORY - MEDICINE [facility] [place] [facility] Sep 23, 2023 04:00 PM AMBULATORY - REHAB MEDICIN E [facility] [place] [facility] Sep 24, 2023 02:00 PM AMBULATORY - PSYCHIATRY [facility] [place] [facility] Sep 25, 2023 08:15 AM AMBULATORY - MEDICINE [facility] [place] [facility] Sep 28, 2023 11:00 AM AMBULATORY - MEDICINE [facility] [place] [facility] Oct 01, 2023 03:30 PM AMBULATORY - REHAB MEDICIN E [facility] [place] [facility] Oct 05, 2023 11:00 AM AMBULATORY - MEDICINE [facility] [place] [facility] Oct 06, 2023 04:30 PM AMBULATORY - REHAB MEDICIN E [facility] [place] [facility] Oct 13, 2023 04:30 PM AMBULATORY - REHAB MEDICIN E [facility] [place] [facility] Oct 15, 2023 01:30 PM AMBULATORY - REHAB MEDICIN E [facility] [place] [facility] Oct 26, 2023 11:00 AM AMBULATORY - MEDICINE [facility] [place] [facility] Oct 26, 2023 03:30 PM AMBULATORY - MEDICINE [facility] [place] [facility] Oct 27, 2023 04:30 PM AMBULATORY - REHAB MEDICIN E [facility] [place] [facility] Nov 05, 2023 03:00 PM AMBULATORY - REHAB MEDICIN E [facility] [place] [facility] Nov 19, 2023 04:30 PM AMBULATORY - REHAB MEDICIN E [facility] [place] [facility] Nov 25, 2023 02:30 PM AMBULATORY - REHAB MEDICIN E [facility] [place] [facility] Active, Pending, and Scheduled Orders This section includes a listing of several types of active, pending, and scheduled orders, including clinic medications orders, diagnostic test orders, procedure orders and consult orders; where the start date of the order is 45 days before the date of the Encounter or 45 days after the date of theEncounter. The data comes from all [facility]. Test Date/Time Test Type Test Details Facility Name Aug 30, 2023 12:00 AM Laboratory - Chemi stry Order CALCIUM BLOOD (SST-SERUM) [facility] Aug 30, 2023 12:00 AM Laboratory - Chemi stry Order URIC ACID BLOOD (SST-SERUM) [facility] Aug 30, 2023 12:00 AM Laboratory - Chemi stry Order PSA BLOOD (SST-SERUM) [facility] Aug 30, 2023 12:00 AM Laboratory - Chemi stry Order FERRITIN BLOOD (SST-SERUM) [facility] Aug 30, 2023 12:00 AM Laboratory - Chemi stry Order VITAMIN D (25-OH) BLOOD (SST-SERUM) [facility] Aug 30, 2023 12:00 AM Laboratory - Chemi stry Order VITAMIN B12 BLOOD (SST-SERUM) [facility] Aug 30, 2023 12:00 AM Laboratory - Chemi stry Order BASIC METABOLIC PANEL (fasting) BLOOD (SST-SERUM) [facility] Aug 30, 2023 12:00 AM Laboratory - Chemi stry Order LIPID PANEL FASTING BLOOD (SST-SERUM) [facility] Aug 30, 2023 12:00 AM Laboratory - Chemi stry Order LIVER FUNCTION BLOOD (SST-SERUM) [facility] Aug 30, 2023 12:00 AM Laboratory - Chemi stry Order CBC AND DIFF (AUTO) BLOOD (LAV-BLOOD) [facility] Aug 30, 2023 12:00 AM Laboratory - Chemi stry Order HEMOGLOBIN A1C PANEL BLOOD (LAV-BLOOD) [facility] Aug 30, 2023 12:00 AM Laboratory - Chemi stry Order TSH BLOOD (SST-SERUM) [facility] Radiology Reports: +/- 30 days [...] the Encounter. The data comes from all [place] treatment facilities. Date/Time Radiology Report Provider Source July 22, 2023 12:00 PM OUTSIDE MRI CERVIC AL SPINE: MACK HURTADO [id number] -1975 M Exm Date: JULY 22, 2023@12:00 Req Phys: MARTI BUTLER Pat Loc: CWM/SO/PACT 3 WH (Req'g Loc) Img Loc: OUTSIDE GENERAL RADIOLOGY Service: Unknown (Case [id number] COMPLETE) OUTSIDE MRI CERVICAL SPINE (RAD Detailed) CPT:25840 Reason for Study: cerv radiculopathy Clinical History: paresthesias both hands radial distribution Report Status: Electronically Filed Date Reported: JULY 22, 2023 Report: Community care exam; see CPRS/JLV for outside radiology report/results Impression: Community care exam; see CPRS/JLV for outside radiology report/results Primary Diagnostic Code: VERIFIED BY: / *ELECTRONICALLY FILED* [place] [facility] [place] [facility] Encounter Notes: All associated encounter notes This section contains the clinical notes associated to the Encounter. Date/Time Encounter Note(s) Provider Source July 24, 2023 01:44 PM CHIROPRACTIC NOTE: LOCAL TITLE: CHIROPRACTOR PROGRESS NOTE STANDARD TITLE: CHIROPRACTIC NOTE DATE OF NOTE: JULY 24, 2023@13:44 ENTRY DATE: JULY 24, 2023@13:44:58 AUTHOR: JESUS DENT COSIGNER: URGENCY: STATUS: COMPLETED [...] re-location 2009 and 2011 Bryan hines in [place] [address] [employer] Patient [facility] [place] [facility] with C/C of low back pain, breonna and interscapular area and neck from occipital area and down into upper trapezii. He reports that he had an MRI of his neck. Today plan to treat his low and mid back He C/O pain in elbow w exercise. Numbness in both forearms into hands and fingers. He describes the pain as low back is the worst and a dull burning ache and constant. Rates 5/10 Upper back pain is sharp and a specific spot and intermittent and rates it 3/10 Neck pain feels more muscular and an ache that is less specific, constant 5/10 Vet rates the pain average on the NPRS ?.. Onset: low back 2000 he had to dig a large hole using E-tools and his back seized up; [place]. Upper back injured in [facility] in 2014 when in a head arm triangle and he felt a pop in mid back saw hospital physician in [facility] who adjusted his back. Dry needling [...] it when climbing stairs. Cortisone injections in [place] private practice; and in [facility], about 14 injections in low back. Lason one 6 months ago at [facility]. Physical therapy 2012 - 2019 he saw PT 3 times per week in [facility] - which tends to incr low back pain. 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 He felt stronger but his low back did not improve. yet he was able to run. 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 His back felt better but his back felt more unstable. Exercise/Activities: stationary bicycle and street bike. He'll work out for a week and stop due to injury or illness, like flu or feels unwell after working out. He exercises on and off and feeling ill follows the work out. Av lost 5-7 pounds over weeks. Av has tried Yoga at home and likes it. Pertinent Imaging: Reviewed Radiologist's report Patient denies bowel/bladder dysfunction saddle anesthesia, recent fevers, infections, night sweats, unexplained weight loss, dysphagia, dysarthria, numbness, diploplia GOALS: be able to type and read w/o hand numbness; be able to reach and wash his back EXAM Active LUMBAR ROM limited and provocative into: [...] ~ Supine gluteal stretching as per palpation objectives 07/24/23 hypertonicity and tenderness Breonna SI jts, PSIS, L/S, mid T/sp Treatment: active/corrective F/D mechanical lumbar traction w flex and lat bending CMT lumbar side posture CMT thoracic seated Treatment carried out today and well tolerated [...] stability, balance, and pain modulation. Plan: trial [place] chiro care. Discussed Community care if patient finds that drive is 6o min. Pending NCV order by Dr. Marti Doan at [facility] Visit 1 F/U 4 visits one week intervals Seek urgent care as needed. CMT: chiropractic manipulative therapy SMT: Spinal Manipulative Therapy F/D: Flexion Distraction MFR: Myofascial Release S-I: Sacroiliac MFTP: Myofascial Trigger Point NRS: Numeric Rating Scale N/T: Numbness/Tingling PIR: Post isometric relaxation /es/ JESUS DENT [facility] CHIROPRACTOR Signed: 07/24/2023 14:32 JESUS DENT [place] [facility]
--- OUTSIDE RECORDS SUMMARY | 2024-02-16 07:33 | XMS_ITS | Encounter Summary ---
Author Name [facility] [place] Organization [place] Address [address] [place] [address] Support Name Relationship Address Phone HURTADOQING MAZARIEGOSHER Next of Kin [address] [place] [address] BRYANT SRIRAM Emergency Contact [address] [place] [address] Selected Encounter This section includes the information on record at [place] for the Encounter. Date/Time Encounter Type Encounter Description Reason Pro vider Source Jun 30, 2023 12:00 PM Outpatient Encounter [facility]ITY [facility] [...] 07, 2023 10:00 AM AMBULATORY - NONE [place] [facility] [place] [facility] July 16, 2023 08:30 AM AMBULATORY - PSYCHIATRY [facility] July 20, 2023 02:00 PM AMBULATORY - MEDICINE [facility] July 21, 2023 10:00 AM AMBULATORY - MEDICINE [place] [facility] [place] [facility] July 22, 2023 12:00 PM AMBULATORY - MEDICINE [place] [facility] [place] [facility] July 24, 2023 02:00 PM AMBULATORY - MEDICINE [place] [facility] [place] [facility] July 31, 2023 10:00 AM AMBULATORY - NONE [place] [facility] [place] [facility] Aug 06, 2023 09:30 AM AMBULATORY - MEDICINE [facility] [place] [facility] Aug 11, 2023 10:00 AM AMBULATORY - PSYCHIATRY [facility] [place] [facility] Sep 11, 2023 08:30 AM AMBULATORY - REHAB MEDICIN E [facility] [place] [facility] Sep 21, 2023 11:00 AM AMBULATORY - MEDICINE [facility] [place] [facility] Sep 23, 2023 04:00 PM AMBULATORY - REHAB MEDICIN E [facility] [place] [facility] Sep 24, 2023 02:00 PM AMBULATORY - PSYCHIATRY [facility] [place] [facility] Sep 25, 2023 08:15 AM AMBULATORY - MEDICINE [facility] [place] [facility] Sep 28, 2023 11:00 AM AMBULATORY - MEDICINE [facility] [place] [facility] Oct 01, 2023 03:30 PM AMBULATORY - REHAB MEDICIN E [facility] [place] [facility] Oct 05, 2023 11:00 AM AMBULATORY - MEDICINE [facility] [place] [facility] Oct 06, 2023 04:30 PM AMBULATORY - REHAB MEDICIN E [facility] [place] [facility] Oct 13, 2023 04:30 PM AMBULATORY - REHAB MEDICIN E [facility] [place] [facility] Oct 15, 2023 01:30 PM AMBULATORY - REHAB MEDICIN E [facility] [place] [facility] Radiology Reports: +/- 30 days of [...] OUTSIDE MRI CERVIC AL SPINE: MACK HURTADO [id number] -1975 M Exm Date: JULY 22, 2023@12:00 Req Phys: MARTI BUTLER Loc: CWM/SO/PACT 3 WH (Req'g Loc) Img Loc: OUTSIDE GENERAL RADIOLOGY Service: Unknown (Case [id number] COMPLETE) OUTSIDE MRI CERVICAL SPINE (RAD Detailed) CPT:75457 Reason for Study: cerv radiculopathy Clinical History: paresthesias both hands radial distribution Report Status: Electronically Filed Date Reported: JULY 22, 2023 Report: Community care exam; see CPRS/JLV for outside radiology report/results Impression: Community care exam; see CPRS/JLV for outside radiology report/results Primary Diagnostic Code: VERIFIED BY: / *ELECTRONICALLY FILED* [facility] Encounter Notes: All associated encounter notes This section contains the clinical notes associated to the Encounter. Date/Time Encounter Note(s) Provider Source Jun 30, 2023 12:00 PM NONVA CONSULT: LOCAL TITLE: COMMUNITY CARE-CONSULT RESULT NOTE STANDARD TITLE: NONVA CONSULT DATE OF NOTE: JUN 30, 2023@12:00 ENTRY DATE: JULY 28, 2023@12:35:31 AUTHOR: LAYLA CHIN COSIGNER: URGENCY: STATUS: COMPLETED VistA Imaging - Scanned Document SCANNED DOCUMENT SIGNATURE NOT REQUIRED Electronically Filed: 07/28/2023 by: LAYLA GIL [facility]
--- OUTSIDE RECORDS SUMMARY | 2024-02-16 07:33 | XMS_ITS | Encounter Summary ---
Author Name [facility] of [facility] Organization [place] Address [address] [place] [id number] Support Name Relationship Address Phone HURTADOQING MAZARIEGOSHER Next of Kin [address] [place] [address] BRYANT SRIRAM Emergency Contact [address] [place] [address] Selected Encounter This section includes the information on record at [place] for the Encounter. Date/Time Encounter Type Encounter Description Reason Pro vider Source Jun 26, 2023 12:00 PM Outpatient Encounter COMMUNITY CARE CONSULT IHE Encounter Template Text not used by [place] Plan of Treatment: Future Appointments (+ 6 [...] 20 appointments. The data comes from all [place] treatment facilities. Appointment Date/Time Appointment Type Appointme nt Facility Name July 07, 2023 10:00 AM AMBULATORY - NONE [place] [facility] [place] [facility] July 16, 2023 08:30 AM AMBULATORY - PSYCHIATRY [facility] July 20, 2023 02:00 PM [facility] July 21, 2023 10:00 AM AMBULATORY - MEDICINE [place] [facility] [place] [facility] July 22, 2023 12:00 PM AMBULATORY - MEDICINE [facility] [facility] July 24, 2023 02:00 PM AMBULATORY - MEDICINE [place] [facility] [place] [facility] July 31, 2023 10:00 AM AMBULATORY - NONE [place] [facility] [place] [facility] Aug 06, 2023 09:30 AM AMBULATORY - MEDICINE [place] [facility] [place] [facility] Aug 11, 2023 10:00 AM AMBULATORY - PS[place]CHIATRY [facility] [place] [facility] Sep 11, 2023 08:30 AM AMBULATORY - REHAB MEDICIN [place] [facility] [place] [facility] Sep 21, 2023 11:00 AM AMBULATORY - MEDICINE [place] [facility] [facility] Sep 23, 2023 04:00 PM AMBULATORY - REHAB MEDICIN E [place] [facility] [place] [facility] Sep 24, 2023 02:00 PM AMBULATORY - PS[place]CHIATRY [place] [facility] [place] [facility] Sep 25, 2023 08:15 AM AMBULATORY - MEDICINE [place] [facility] [place] [facility] Sep 28, 2023 11:00 AM AMBULATORY - MEDICINE [place] [facility] [place] [facility] Oct 01, 2023 03:30 PM AMBULATORY - REHAB MEDICIN E [place] [facility] [place] [facility] Oct 05, 2023 11:00 AM AMBULATORY - MEDICINE [place] [facility] [place] [facility] Oct 06, 2023 04:30 PM AMBULATORY - REHAB MEDICIN E [place] [facility] [place] [facility] Oct 13, 2023 04:30 PM AMBULATORY - REHAB MEDICIN E [place] [facility] [place] [facility] Oct 15, 2023 01:30 PM AMBULATORY - REHAB MEDICIN E [place] [facility] [place] [facility] Radiology Reports: +/- 30 days of the [...] the Encounter. The data comes from all [place] treatment facilities. Date/Time Radiology Report Provider Source July 22, 2023 12:00 PM OUTSIDE MRI CERVIC AL SPINE: MACK HURTADO [id number] -1975 M Exm Date: JULY 22, 2023@12:00 Req Phys: MARTI BUTLER Loc: CWM/SO/PACT 3 WH (Req'g Loc) Img Loc: OUTSIDE GENERAL RADIOLOGY Service: Unknown (Case [id number] COMPLETE) OUTSIDE MRI CERVICAL SPINE (RAD Detailed) CPT:85281 Reason for Study: cerv radiculopathy Clinical History: paresthesias both hands radial distribution Report Status: Electronically Filed Date Reported: JULY 22, 2023 Report: Community care exam; see CPRS/JLV for outside radiology report/results Impression: Community care exam; see CPRS/JLV for outside radiology report/results Primary Diagnostic Code: VERIFIED BY: / *ELECTRONICALLY FILED* [facility] Encounter Notes: All associated encounter notes This section contains the clinical notes associated to the Encounter. Date/Time Encounter Note(s) Provider Source Jun 26, 2023 12:00 PM NONVA CONSULT: LOCAL TITLE: COMMUNITY CARE-CONSULT RESULT NOTE STANDARD TITLE: NONVA CONSULT DATE OF NOTE: JUN 26, 2023@12:00 ENTRY DATE: JULY 28, 2023@12:38:05 AUTHOR: LAYLA CHIN COSIGNER: URGENCY: STATUS: COMPLETED VistA Imaging - Scanned Document SCANNED DOCUMENT SIGNATURE NOT REQUIRED Electronically Filed: 07/28/2023 by: LAYLA GIL [facility]
--- OUTSIDE RECORDS SUMMARY | 2024-02-16 07:33 | XMS_ITS | Encounter Summary ---
Author Name Department of Veter[place] Affairs [place] Organization Department [place] Address [address] [place] [address] Support Name Relationship Address Phone HURTADOSRIRAM MAZARIEGOS Next of Kin [address] [place] [address] HURTADOQING MAZARIEGOSHER Emergency Contact [address] [place] [address] Selected Encounter This section includes the information on record at [place] for the Encounter. Date/Time Encounter Type Encounter Description Reason Pro vider Source Aug 05, 2023 11:26 AM Outpatient Encounter TELEPHONE TRIAGE IHE Encounter Template Text not used by [place] [...] Date/Time Appointment Type Appointme nt Facility Name Aug 06, 2023 09:30 AM AMBULATORY - MEDICINE [place] [facility] [place] [facility] Aug 11, 2023 10:00 AM AMBULATORY - PSYCHIATRY [place] [facility] [place] [place] [facility] Sep 11, 2023 08:30 AM AMBULATORY - REHAB MEDICIN E [place] [facility] [place] [facility] Sep 21, 2023 11:00 AM AMBULATORY - MEDICINE [place] [facility] [place] [facility] Sep 23, 2023 04:00 PM AMBULATORY - REHAB MEDICIN E [place] [facility] [place] [facility] Sep 24, 2023 02:00 PM AMBULATORY - PSYCHIATRY [place] [facility] [place] [facility] Sep 25, 2023 08:15 AM AMBULATORY - MEDICINE [place] [facility] [facility] Sep 28, 2023 11:00 AM AMBULATORY - MEDICINE [place] [facility] [place] [facility] Oct 01, 2023 03:30 PM AMBULATORY - REHAB MEDICIN E [facility] [place] [facility] Oct 05, 2023 11:00 AM AMBULATORY - MEDICINE [place] [facility] [place] [facility] Oct 06, 2023 04:30 PM AMBULATORY - REHAB MEDICIN E [facility] [place] [facility] Oct 13, 2023 04:30 PM AMBULATORY - REHAB MEDICIN E [facility] [place] [facility] Oct 15, 2023 01:30 PM AMBULATORY - REHAB MEDICIN E [facility] [place] [facility] Oct 26, 2023 11:00 AM AMBULATORY - MEDICINE [place] [facility] [place] [facility] Oct 26, 2023 03:30 PM AMBULATORY - MEDICINE [place] [facility] [place] [facility] Oct 27, 2023 04:30 PM AMBULATORY - REHAB MEDICIN E [facility] [place] [facility] Nov 05, 2023 03:00 PM AMBULATORY - REHAB MEDICIN E [facility] [place] [facility] Nov 19, 2023 04:30 PM AMBULATORY - REHAB MEDICIN E [place] [facility] [place] [facility] Nov 25, 2023 02:30 PM AMBULATORY - REHAB MEDICIN E [place] [facility] [place] [facility] Dec 07, 2023 10:30 AM AMBULATORY - PSYCHIATRY [place] [facility] [place] [facility] Active, Pending, and Scheduled Orders This [...] - Chemi stry Order CALCIUM BLOOD (SST-SERUM) [facility] Aug 30, 2023 12:00 AM Laboratory - Chemi stry Order URIC ACID BLOOD (SST-SERUM) [facility] Aug 30, 2023 12:00 AM Laboratory - Chemi stry Order PSA BLOOD (SST-SERUM) [facility] Aug 30, 2023 12:00 AM Laboratory - Chemi stry Order FERRITIN BLOOD (SST-SERUM) [facility] Aug 30, 2023 12:00 AM Laboratory - Chemi stry Order VITAMIN D (25-OH) BLOOD (SST-SERUM) [facility] Aug 30, 2023 12:00 AM Laboratory - Chemi stry Order VITAMIN B12 BLOOD (SST-SERUM) [facility] Aug 30, 2023 12:00 AM Laboratory - Chemi stry Order BASIC METABOLIC PANEL (fasting) BLOOD (SST-SERUM) [facility] Aug 30, 2023 12:00 AM Laboratory - Chemi stry Order LIPID PANEL FASTING BLOOD (SST-SERUM) [facility] Aug 30, 2023 12:00 AM Laboratory - Chemi stry Order LIVER FUNCTION BLOOD (SST-SERUM) [facility] Aug 30, 2023 12:00 AM Laboratory - Chemi stry Order CBC AND DIFF (AUTO) BLOOD (LAV-BLOOD) [facility] Aug 30, 2023 12:00 AM Laboratory - Chemi stry Order HEMOGLOBIN A1C PANEL BLOOD (LAV-BLOOD) [facility] Aug 30, 2023 12:00 AM Laboratory - Chemi stry Order TSH BLOOD (SST-SERUM) [facility] Radiology Reports: +/- 30 [...] OUTSIDE MRI CERVIC AL SPINE: MACK HURTADO [id number] -1975 M Ex Date: JULY 22, 2023@12:00 Req Phys: MARTI BUTLER Loc: CWM/SO/PACT 3 WH (Req'g Loc) Img Loc: OUTSIDE GENERAL RADIOLOGY Service: Unknown (Case [id number] COMPLETE) OUTSIDE MRI CERVICAL SPINE (RAD Detailed) CPT:92987 Reason for Study: cerv radiculopathy Clinical History: paresthesias both hands radial distribution Report Status: Electronically Filed Date Reported: JULY 22, 2023 Report: Community care exam; see CPRS/JLV for outside radiology report/results Impression: Community care exam; see CPRS/JLV for outside radiology report/results Primary Diagnostic Code: VERIFIED BY: / *ELECTRONICALLY FILED* [place] [facility] [place] [place] [facility] Encounter Notes: All associated encounter notes This section contains the clinical notes associated to the Encounter. Date/Time Encounter Note(s) Provider Source Aug 05, 2023 11:26 AM RN PROGRESS NOTE: LOCAL TITLE: CCC: CLINICAL TRIAGE STANDARD TITLE: RN PROGRESS NOTE DATE OF NOTE: AUG 05, 2023@11:26:24 ENTRY DATE: AUG 05, 2023@11:26:25 AUTHOR: LORENZO FARR COSIGNER: URGENCY: STATUS: COMPLETED Patient Demographics Patient Name: MACK HURTADO Patient Primary Address: [address] [place] [address] Patient Primary Phone: [phone] Patient : 1975 Patient Age: 47 Caller/Recipient Relation to Patient: Self Emergency Contact: SRIRAM HURTADO Triage Summary Chief Complaint: Vision Change System WHEN: Within 3 Days Nurse's Recommendation / WHEN: Within 3 Days System WHERE: Clinic Nurse's Recommendation / WHERE: Clinic/[facility] Nursing Plan and Disposition Referred Patient for In-Person Appt Transferred patient to Sched & Admin-Apt Transferred patient to facility MSA Other course(s) of action Generated msg to PACT/Provider Nurse Summary Nurse Summary: Patient states my right eye is fuzzy, it does not happen all the time but when I am reading I noticed it more. The fuzziness is both near and far vision. Denies recent injury or trauma to the eye or head. States symptom has been going on for a week now per patient. SEE ROS. Advised will try to connect and warm transfer patient to the eye clinic in leads for evaluation. Patient agreed. Called specialty clinic [facility] [place], spoke with a staff member. Advised her as noted above. advised patient needs evaluation of his symptom. She states to transfer the patient to her. Patient was warm transferred to specialty clinic staff member. Clinical Contact Center Codes Clinic/Location: [facility] PHONE CCC RN TXCC Triage Complete Triage Date: 08/05/2023, 11:22 AM Triage Note: Phone Triage 05 Aug 2023 15:17:54 +0000 [place] Demographics 47 y/o Male Results CC: Vision Change Software suggested: Within 3 Days Software suggested follow-up location: Clinic, consider virtual care Values and Measures Duration of CC: 1 Weeks Positive Responses HPI: blurry vision, new Negative Responses Denies: FH: multiple sclerosis Denies: HPI: corneal foreign body Denies: HPI: corneal opacification Denies: HPI: diplopia, developed over hours to days Denies: HPI: diplopia, episodic Denies: HPI: diplopia, sudden onset Denies: HPI: eye discharge, exudative Denies: HPI: eye injury Denies: HPI: eye pain Denies: HPI: eye redness Denies: HPI: eyelashes matted on waking Denies: HPI: foreign body sensation, eye Denies: HPI: headache, periorbital, unilateral Denies: HPI: headache, triggered by darkness to bright light transition Denies: HPI: scintillating scotomata Denies: HPI: scotoma, black spots, sudden onset Denies: HPI: scotoma, floaters, sudden onset Denies: HPI: vision impairment, halos or rainbows around lights Denies: HPI: vision loss, new Denies: PMH: HIV positive Denies: PMH: multiple sclerosis Denies: PMH: optic neuritis /hcerri/ LORENZO FARR VISN 1 PIYUSH RN Signed: 08/05/2023 11:26 Receipt Acknowledged By: 08/05/2023 12:14 /es/ FAUSTO BAIRES LPN LICENSED PRACTICAL NURSE 08/05/2023 11:32 /es/ RACHAEL KOVACS RN REGISTERED NURSE LORENZO FARR [facility]
--- OUTSIDE RECORDS SUMMARY | 2024-02-16 07:33 | XMS_ITS ---
Author Name Department of [place] Organization [place] ([place]) Address [address] [place] [id number] Support Name Relationship Address Phone HURTADOQING MAZARIEGOSHER Next of Kin [address] [place] [address] BRYANT SRIRAM Emergency Contact [address] [place] [address] Selected Encounter This section includes the information on record at [place] for the Encounter. Date/Time Encounter Type Encounter Description Reason Pro vider Source July 15, 2023 12:00 PM Outpatient Encounter COMMUNITY CARE CONSULT IHE Encounter Template Text not used by [place] Plan of Treatment: Future Appointments (+ 6 [...] 16, 2023 08:30 AM AMBULATORY - PSYCHIATRY [facility] July 20, 2023 02:00 PM AMBULATORY - MEDICINE [facility] July 21, 2023 10:00 AM AMBULATORY - [place]ICINE [place] [place] [facility] July 22, 2023 12:00 PM AMBULATORY - [place]ICINE [place] [place] [facility] July 24, 2023 02:00 PM AMBULATORY - MEDICINE [place] [facility] [place] [facility] July 31, 2023 10:00 AM AMBULATORY - NONE [facility] [place] [place] [facility] Aug 06, 2023 09:30 AM AMBULATORY - MEDICINE [place] [facility] [place] [facility] Aug 11, 2023 10:00 AM AMBULATORY - PSYCHIATRY [facility] [place] [place] [facility] Sep 11, 2023 08:30 AM AMBULATORY - REHAB MEDICIN E [facility] [place] [place] [facility] Sep 21, 2023 11:00 AM AMBULATORY - MEDICINE [place] [facility] [place] [facility] Sep 23, 2023 04:00 PM AMBULATORY - REHAB MEDICIN E [place] [facility] [place] [facility] Sep 24, 2023 02:00 PM AMBULATORY - PSYCHIATRY [place] [facility] [place] [facility] Sep 25, 2023 08:15 AM AMBULATORY - MEDICINE [place] [facility] [place] [facility] Sep 28, 2023 11:00 AM AMBULATORY - MEDICINE [place] [facility] [place] [facility] Oct 01, 2023 03:30 PM AMBULATORY - REHAB MEDICIN E [place] [facility] [place] [facility] Oct 05, 2023 11:00 AM AMBULATORY - MEDICINE [place] [facility] [place] [facility] Oct 06, 2023 04:30 PM AMBULATORY - REHAB MEDICIN E [facility] [place] [facility] Oct 13, 2023 04:30 PM AMBULATORY - REHAB MEDICIN E [facility] [place] [facility] Oct 15, 2023 01:30 PM AMBULATORY - REHAB MEDICIN E [place] [facility] [place] [facility] Oct 26, 2023 11:00 AM AMBULATORY [place]INE [place] [facility] Radiology Reports: +/- 30 days of the [...] the Encounter. The data comes from all [place] treatment facilities. Date/Time Radiology Report Provider Source July 22, 2023 12:00 PM OUTSIDE MRI CERVIC AL SPINE: MACK HURTADO [id number] -1975 M Exm Date: JULY 22, 2023@12:00 Req Phys: MARTI BUTLER Loc: CWM/SO/PACT 3 WH (Req'g Loc) Img Loc: OUTSIDE GENERAL RADIOLOGY Service: Unknown (Case [id number] COMPLETE) OUTSIDE MRI CERVICAL SPINE (RAD Detailed) CPT:62266 Reason for Study: cerv radiculopathy Clinical History: paresthesias both hands radial distribution Report Status: Electronically Filed Date Reported: JULY 22, 2023 Report: Community care exam; see CPRS/JLV for outside radiology report/results Impression: Community care exam; see CPRS/JLV for outside radiology report/results Primary Diagnostic Code: VERIFIED BY: / *ELECTRONICALLY FILED* [facility] Encounter Notes: All associated encounter notes This section contains the clinical notes associated to the Encounter. Date/Time Encounter Note(s) Provider Source July 15, 2023 12:00 PM NONVA CONSULT: LOCAL TITLE: COMMUNITY CARE-CONSULT RESULT NOTE STANDARD TITLE: NONVA CONSULT DATE OF NOTE: JULY 15, 2023@12:00 ENTRY DATE: JULY 28, 2023@12:33:22 AUTHOR: LAYLA CHIN COSIGNER: URGENCY: STATUS: COMPLETED VistA Imaging - Scanned Document SCANNED DOCUMENT SIGNATURE NOT REQUIRED Electronically Filed: 07/28/2023 by: LAYLA GIL [facility]
--- OUTSIDE RECORDS SUMMARY | 2024-02-16 07:33 | XMS_ITS | Encounter Summary ---
Author Name Department of [place] Organization [facility] [place] Address [address] [place] [address] Support Name Relationship Address Phone HURTADOQING MAZARIEGOSHER Next of Kin [address] [place] [address] HURTADOQING MAZARIEGOSHER Emergency Contact [address] [place] [address] Selected Encounter This section includes the information on record at [place] for the Encounter. Date/Time Encounter Type Encounter Description Reason Pro vider Source July 22, 2023 12:00 AM Outpatient Encounter EVENT (HISTORICAL) IHE Encounter Template Text not used by [place] Plan of Treatment: Future Appointments (+ 6 months) and Future Tests (+/- 45 days) The Plan of Treatment section includes future care activities for the patient from all [place] treatmentfacilities. This section includes future appointments and future orders which are active, pending or scheduled. Future Appointments This section includes appointments that were scheduled to occur 6 months from the date of the Encounter, up to a maximum of 20 appointments. The data comes from all [place] treatment facilities. Appointment Date/Time Appointment Type Appointme nt Facility Name July 24, 2023 02:00 PM AMBULATORY [place]ICINE [place] [facility] July 31, 2023 10:00 AM AMBULATORY - NONE [place] [facility] [place] [facility] Aug 06, 2023 09:30 AM AMBULATORY - MEDICINE [place] [facility] [place] [place] [facility] Aug 11, 2023 10:00 AM AMBULATORY - PSYCHIATRY [place] [facility] [place] [facility] Sep 11, 2023 08:30 AM AMBULATORY - REHAB MEDICIN E [facility] [place] [facility] Sep 21, 2023 11:00 AM AMBULATORY - MEDICINE [place] [facility] [place] [place] [facility] Sep 23, 2023 04:00 PM AMBULATORY - REHAB MEDICIN [place] [facility] [place] [facility] Sep 24, 2023 02:00 PM AMBULATORY - PSYCHIATRY [place] [facility] [place] [facility] Sep 25, 2023 08:15 AM AMBULATORY - MEDICINE [place] [facility] [place] [facility] Sep 28, 2023 11:00 AM AMBULATORY - MEDICINE [place] [facility] [place] [facility] Oct 01, 2023 03:30 PM AMBULATORY - REHAB MEDICIN E [facility] [place] [facility] Oct 05, 2023 11:00 AM AMBULATORY - MEDICINE [place] [facility] [place] [place] [facility] Oct 06, 2023 04:30 PM AMBULATORY - REHAB MEDICIN E [place] [facility] [place] [facility] Oct 13, 2023 04:30 PM AMBULATORY - REHAB MEDICIN E [place] [facility] [place] [facility] Oct 15, 2023 01:30 PM AMBULATORY - REHAB MEDICIN E [place] [facility] [place] [facility] Oct 26, 2023 11:00 AM AMBULATORY - MEDICINE [place] [facility] [place] [place] [facility] Oct 26, 2023 03:30 PM AMBULATORY - MEDICINE [place] [facility] [place] [facility] Oct 27, 2023 04:30 PM AMBULATORY - REHAB MEDICIN E [facility] [place] [facility] Nov 05, 2023 03:00 PM AMBULATORY - REHAB MEDICIN E [facility] [place] [facility] Nov 19, 2023 04:30 PM AMBULATORY - REHAB MEDICIN E [place] [facility] [place] [facility] Active, Pending, and Scheduled Orders This section includes a listing of several types of active, pending, and scheduled orders, including clinic medications orders, diagnostic test orders, procedure orders and consult orders; where the start date of the order is 45 days before the date of the Encounter or 45 days after the date of theEncounter. The data comes from all [place] treatment facilities. Test Date/Time Test Type Test Details Facility Name Aug 30, 2023 12:00 AM Laboratory - Chemi stry Order CALCIUM BLOOD (SST-SERUM) [facility] Aug 30, 2023 12:00 AM Laboratory - Chemi stry Order URIC ACID BLOOD (SST-SERUM) [facility] Aug 30, 2023 12:00 AM Laboratory - Chemi stry Order PSA BLOOD (SST-SERUM) [facility] Aug 30, 2023 12:00 AM Laboratory - Chemi stry Order FERRITIN BLOOD (SST-SERUM) [facility] Aug 30, 2023 12:00 AM Laboratory - Chemi stry Order VITAMIN D (25-OH) BLOOD (SST-SERUM) [facility] Aug 30, 2023 12:00 AM Laboratory - Chemi stry Order VITAMIN B12 BLOOD (SST-SERUM) [facility] Aug 30, 2023 12:00 AM Laboratory - Chemi stry Order BASIC METABOLIC PANEL (fasting) BLOOD (SST-SERUM) [facility] Aug 30, 2023 12:00 AM Laboratory - Chemi stry Order LIPID PANEL FASTING BLOOD (SST-SERUM) [facility] Aug 30, 2023 12:00 AM Laboratory - Chemi stry Order LIVER FUNCTION BLOOD (SST-SERUM) [facility] Aug 30, 2023 12:00 AM Laboratory - Chemi stry Order HEMOGLOBIN A1C PANEL BLOOD (LAV-BLOOD) [facility] Aug 30, 2023 12:00 AM Laboratory - Chemi stry Order CBC AND DIFF (AUTO) BLOOD (LAV-BLOOD) [facility] Aug 30, 2023 12:00 AM Laboratory - Chemi stry Order TSH BLOOD (SST-SERUM) [facility] Radiology Reports: +/- 30 days of the [...] the Encounter. The data comes from all [place] treatment facilities. Date/Time Radiology Report Provider Source July 22, 2023 12:00 PM OUTSIDE MRI CERVIC AL SPINE: MACK HURTADO [id number] -1975 M Ex Date: JULY 22, 2023@12:00 Req Phys: MARTI BUTLER Loc: CWM/SO/PACT 3 WH (Req'g Loc) Img Loc: OUTSIDE GENERAL RADIOLOGY Service: Unknown (Case [id number] COMPLETE) OUTSIDE MRI CERVICAL SPINE (RAD Detailed) CPT:19655 Reason for Study: cerv radiculopathy Clinical History: paresthesias both hands radial distribution Report Status: Electronically Filed Date Reported: JULY 22, 2023 Report: Community care exam; see CPRS/JLV for outside radiology report/results Impression: Community care exam; see CPRS/JLV for outside radiology report/results Primary Diagnostic Code: VERIFIED BY: / *ELECTRONICALLY FILED* [facility] Encounter Notes: All associated encounter notes This section contains the clinical notes associated to the Encounter. Date/Time Encounter Note(s) Provider Source July 22, 2023 12:00 AM NONVA CONSULT: LOCAL TITLE: COMMUNITY CARE-CONSULT RESULT NOTE STANDARD TITLE: NONVA CONSULT DATE OF NOTE: JULY 22, 2023 ENTRY DATE: JULY 28, 2023@11:48:29 AUTHOR: REECE CARREON [place] EXP COSIGNER: URGENCY: STATUS: COMPLETED VistA Imaging - Scanned Document SCANNED DOCUMENT SIGNATURE NOT REQUIRED Electronically Filed: 07/28/2023 by: REECE CARREON PUBLIC HEALTH ADVISOR REECE CARREON [facility]
--- OUTSIDE RECORDS SUMMARY | 2024-02-16 07:33 | XMS_ITS | Encounter Summary ---
Author Name [facility] of [facility] ([place]) Organization Department of Vetera Affairs ([place]) Address [address] [place] [address] Support Name Relationship Address Phone HURTADOSRIRAM MAZARIEGOS Next of Kin [address] [place] [address] BRYANTQINGSRIRAM Emergency Contact [address] [place] [address] Selected Encounter This section includes the information on record at [place] for the Encounter. Date/Time Encounter Type Encounter Description Reason Pro vider Source Aug 05, 2023 11:22 AM Outpatient Encounter OPTOMETRY IHE Encounter Template Text not used by [place] Plan of Treatment: Future Appointments (+ 6 months) and Future Tests (+/- 45 days) The Plan of Treatment section includes future care activities for the patient from all [place] treatmentfacilities. This section includes future appointments and future orders which are active, pending or scheduled. Future Appointments This section includes appointments that were scheduled to occur 6 months from the date of the Encounter, up to a maximum of 20 appointments. The data comes from all [place] treatment facilities. Appointment Date/Time Appointment Type Appointme nt Facility Name Aug 06, 2023 09:30 AM AMBULATORY - MEDICINE [place] [facility] [place] [facility] Aug 11, 2023 10:00 AM AMBULATORY - PSYCHIATRY [place] [facility] [place] [facility] Sep 11, 2023 08:30 AM AMBULATORY - REHAB MEDICIN E [facility] [place] [facility] Sep 21, 2023 11:00 AM AMBULATORY - MEDICINE [place] [facility] [place] [facility] Sep 23, 2023 04:00 PM AMBULATORY - REHAB MEDICIN E [facility] [place] [facility] Sep 24, 2023 02:00 PM AMBULATORY - PSYCHIATRY [facility] [place] [facility] Sep 25, 2023 08:15 AM AMBULATORY - MEDICINE [facility] [place] [facility] Sep 28, 2023 11:00 AM AMBULATORY - MEDICINE [place] [facility] [place] [facility] Oct 01, 2023 03:30 PM AMBULATORY - REHAB MEDICIN E [facility] [place] [facility] Oct 05, 2023 11:00 AM AMBULATORY - MEDICINE [place] [facility] [place] [facility] Oct 06, 2023 04:30 PM AMBULATORY - REHAB MEDICIN E [facility] [place] [facility] Oct 13, 2023 04:30 PM AMBULATORY - REHAB MEDICIN E [facility] [place] [facility] Oct 15, 2023 01:30 PM AMBULATORY - REHAB MEDICIN E [facility] [place] [facility] Oct 26, 2023 11:00 AM AMBULATORY - MEDICINE [place] [facility] [place] [facility] Oct 26, 2023 03:30 PM AMBULATORY - MEDICINE [facility] [place] [facility] Oct 27, 2023 04:30 PM AMBULATORY - REHAB MEDICIN E [facility] [place] [facility] Nov 05, 2023 03:00 PM AMBULATORY - REHAB MEDICIN E [facility] [place] [facility] Nov 19, 2023 04:30 PM AMBULATORY - REHAB MEDICIN E [facility] [place] [facility] Nov 25, 2023 02:30 PM AMBULATORY - REHAB MEDICIN E [facility] [place] [facility] Dec 07, 2023 10:30 AM AMBULATORY - PSYCHIATRY [place] [facility] [place] [facility] Active, Pending, and Scheduled Orders This section includes a listing of several types of active, pending, and scheduled orders, including clinic medications orders, diagnostic test orders, procedure orders and consult orders; where the start date of the order is 45 days before the date of the Encounter or 45 days after the date of theEncounter. The data comes from all ID treatment facilities. Test Date/Time Test Type Test Details Facility Name Aug 30, 2023 12:00 AM Laboratory - Chemi stry Order CALCIUM BLOOD (SST-SERUM) [facility] Aug 30, 2023 12:00 AM Laboratory - Chemi stry Order URIC ACID BLOOD (SST-SERUM) [facility] Aug 30, 2023 12:00 AM Laboratory - Chemi stry Order PSA BLOOD (SST-SERUM) [facility] Aug 30, 2023 12:00 AM Laboratory - Chemi stry Order FERRITIN BLOOD (SST-SERUM) [facility] Aug 30, 2023 12:00 AM Laboratory - Chemi stry Order VITAMIN D (25-OH) BLOOD (SST-SERUM) [facility] Aug 30, 2023 12:00 AM Laboratory - Chemi stry Order VITAMIN B12 BLOOD (SST-SERUM) [facility] Aug 30, 2023 12:00 AM Laboratory - Chemi stry Order BASIC METABOLIC PANEL (fasting) BLOOD (SST-SERUM) [facility] Aug 30, 2023 12:00 AM Laboratory - Chemi stry Order LIPID PANEL FASTING BLOOD (SST-SERUM) [facility] Aug 30, 2023 12:00 AM Laboratory - Chemi stry Order LIVER FUNCTION BLOOD (SST-SERUM) [facility] Aug 30, 2023 12:00 AM Laboratory - Chemi stry Order CBC AND DIFF (AUTO) BLOOD (LAV-BLOOD) [facility] Aug 30, 2023 12:00 AM Laboratory - Chemi stry Order HEMOGLOBIN A1C PANEL BLOOD (LAV-BLOOD) [facility] Aug 30, 2023 12:00 AM Laboratory - Chemi stry Order TSH BLOOD (SST-SERUM) [facility] Radiology Reports: +/- 30 [...] the Encounter. The data comes from all [place] treatment facilities. Date/Time Radiology Report Provider Source July 22, 2023 12:00 PM OUTSIDE MRI CERVIC AL SPINE: MACK HURTADO [id number] -1975 M Ex Date: JULY 22, 2023@12:00 Req Phys: MARTI BUTLER Loc: CWM/SO/PACT 3 WH (Req'g Loc) Img Loc: OUTSIDE GENERAL RADIOLOGY Service: Unknown (Case [id number] COMPLETE) OUTSIDE MRI CERVICAL SPINE (RAD Detailed) CPT:04340 Reason for Study: cerv radiculopathy Clinical History: paresthesias both hands radial distribution Report Status: Electronically Filed Date Reported: JULY 22, 2023 Report: Community care exam; see CPRS/JLV for outside radiology report/results Impression: Community care exam; see CPRS/JLV for outside radiology report/results Primary Diagnostic Code: VERIFIED BY: / *ELECTRONICALLY FILED* [facility] [place] [facility] Encounter Notes: All associated encounter notes This section contains the clinical notes associated to the Encounter. Date/Time Encounter Note(s) Provider Source Aug 05, 2023 02:58 PM ADDENDUM: LOCAL TITLE: Addendum STANDARD TITLE: ADDENDUM DATE OF NOTE: AUG 05, 2023@14:58:45 ENTRY DATE: AUG 05, 2023@14:58:46 AUTHOR: LISA DIAZ EXP COSIGNER: URGENCY: STATUS: COMPLETED offer appoinment for tomorrow with me. /cherri/ Lisa Diaz OD CHIEF OF OPTOMETRY Signed: 08/05/2023 14:59 Receipt Acknowledged By: 08/05/2023 15:30 /es/ GIOVANNI HIGGINS ADVANCED HOT BLASTER 08/05/2023 15:32 /es/ SIMRAN KIM ====== --- Original Document --- 08/05/23 TELEPHONE NOTE/SPECIALTY CLINIC: Triage transferred [place] stating the following vision concerns: Right eye goes fuzzy, can't see things close or far, lasts for a day or two, then slowly goes away, very profound with reading. Just happened within the past week, getting progressively worse. First available appointment right now is with Dr. Gil on 09/04/23 @ 0800, (just in case sooner appt was not possible) I scheduled him for this appointment. He would like a sooner appointment if possible. Please contact at /es/ ISELA ZAMUDIO LEAD HOT BLASTER Signed: 08/05/2023 11:29 Receipt Acknowledged By: * AWAITING SIGNATURE * KLEBER LE 08/05/2023 14:35 /es/ CECILE CUEVAS [facility] TECHINICIAN 08/05/2023 14:48 /es/ Sarah Carlos Optometry Health [employer] Developer 08/05/2023 13:08 /es/ ANDERS GIL OD Manager Hospice 08/05/2023 14:58 /es/ Lisa Diaz OD CHIEF OF OPTOMETRY 08/05/2023 14:59 /es/ Lisa Diaz OD CHIEF OF OPTOMETRY for M[facility] FERRER 08/05/2023 ADDENDUM STATUS: UNSIGNED You may not VIEW this UNSIGNED Addendum. LISA DIAZ [facility] [place] [facility] Aug 05, 2023 11:22 AM TELEPHONE ENCOUNTE R NOTE: LOCAL TITLE: TELEPHONE NOTE/SPECIALTY CLINIC STANDARD TITLE: TELEPHONE ENCOUNTER NOTE DATE OF NOTE: AUG 05, 2023@11:22 ENTRY DATE: AUG 05, 2023@11:23:01 AUTHOR: ISELA ZAMUDIO EXP COSIGNER: URGENCY: STATUS: COMPLETED TELEPHONE NOTE/SPECIALTY CLINIC Has ADDENDA Triage transferred stating the following vision concerns: Right eye goes fuzzy, can't see things close or far, lasts for a day or two, then slowly goes away, very profound with reading. Just happened within the past week, getting progressively worse. First available appointment right now is with Dr. Gil on 09/04/23 @ 0800, (just in case sooner appt was not possible) I scheduled him for this appointment. He would like a sooner appointment if possible. Please contact at /es/ ISELA ZAMUDIO LEAD HOT BLASTER Signed: 08/05/2023 11:29 Receipt Acknowledged By: 08/06/2023 15:26 /cherri/ KLEBER LE OPTOMETRY TECH 08/05/2023 14:35 /es/ CECILE CUEVAS [facility] 08/05/2023 14:48 /es/ Sarah Carlos Optometry Health Sy[employer] Developer 08/05/2023 13:08 /es/ ANDERS GIL OD Manager Hospice 08/05/2023 14:58 /es/ Lias Diaz OD CHIEF OF OPTOMETRY 08/05/2023 14:59 /es/ Lisa Diaz OD CHIEF OF OPTOMETRY for [facility] 08/05/2023 ADDENDUM STATUS: COMPLETED offer appoinment for tomorrow with me. /es/ Lisa Diaz OD CHIEF OF OPTOMETRY Signed: 08/05/2023 14:59 Receipt Acknowledged By: 08/05/2023 15:30 /cherri/ GIOVANNI HIGGINS ADVANCED HOT BLASTER 08/05/2023 15:32 /es/ SIMRAN KIM 08/05/2023 ADDENDUM STATUS: COMPLETED [place] is scheduled for 08/06/2023 at 930am - all set. /cherri/ GIOVANNI HIGGINS ADVANCED HOT BLASTER Signed: 08/05/2023 15:33 ISELA ZAMUDIO [facility]
--- OUTSIDE RECORDS SUMMARY | 2024-02-16 07:33 | XMS_ITS ---
Author Name Department of Vetera [facility] Affairs ([place]) Organization [facility] of [place] Address [address] [place] [id number] Support Name Relationship Address Phone HURTADOQING MAZARIEGOSHER Next of Kin [address] [place] [address] HURTADOQING MAZARIEGOSHER Emergency Contact [address] [place] [address] Selected Encounter This section includes the information on record at [place] for the Encounter. Date/Time Encounter Type Encounter Description Reason Pro vider Source Apr 06, 2023 12:00 AM Outpatient Encounter EVENT (HISTORICAL) IHE Encounter Template Text not used by [place] Plan of Treatment: Future Appointments (+ 6 months) and Future Tests (+/- 45 days) The Plan of Treatment section includes future care activities for the patient from all [place] treatmentfacilities. This section includes future appointments and future orders which are active, pending or scheduled. Future Appointments This section includes appointments that were scheduled to occur 6 months from the date of the Encounter, up to a maximum of 20 appointments. The data comes from all [place] treatment facilities. Appointment Date/Time Appointment Type Appointme nt Facility Name Jun 10, 2023 12:30 PM AMBULATORY - MEDICINE [place] [facility] [place] [facility] Jun 19, 2023 10:00 AM AMBULATORY - MEDICINE [place] [facility] [place] [facility] Jun 23, 2023 08:00 AM AMBULATORY - MEDICINE [place] [facility] [place] [facility] Jun 24, 2023 08:00 AM AMBULATORY - PSYCHIATRY [facility] July 07, 2023 10:00 AM AMBULATORY - NONE [place] [facility] [place] [facility] July 16, 2023 08:30 AM AMBULATORY - PSYCHIATRY [facility] July 20, 2023 02:00 PM AMBULATORY - MEDICINE [place] July 21, 2023 10:00 AM AMBULATORY - MEDICINE [place] [facility] [place] [facility] July 22, 2023 12:00 PM AMBULATORY - MEDICINE [place] [facility] [place] [facility] July 24, 2023 02:00 PM AMBULATORY - MEDICINE [place] [facility] [place] [facility] July 31, 2023 10:00 AM AMBULATORY - NONE [facility] [place] [facility] Aug 06, 2023 09:30 AM AMBULATORY - MEDICINE [place] [facility] [place] [facility] Aug 11, 2023 10:00 AM AMBULATORY - PSYCHIATRY [facility] [place] [facility] Sep 11, 2023 08:30 AM AMBULATORY - REHAB MEDICIN E [facility] [place] [facility] Sep 21, 2023 11:00 AM AMBULATORY - MEDICINE [place] [facility] [place] [facility] Sep 23, 2023 04:00 PM AMBULATORY - REHAB MEDICIN E [facility] [place] [facility] Sep 24, 2023 02:00 PM AMBULATORY - PSYCHIATRY [facility] [place] [facility] Sep 25, 2023 08:15 AM AMBULATORY - MEDICINE [place] [facility] [place] [facility] Sep 28, 2023 11:00 AM AMBULATORY - MEDICINE [facility] [place] [facility] Oct 01, 2023 03:30 PM AMBULATORY - REHAB MEDICIN E [facility] [place] [facility]
--- OUTSIDE RECORDS SUMMARY | 2024-02-16 07:33 | XMS_ITS | Encounter Summary ---
Author Name Department of Vetera ns Affairs ([place]) Organization [facility] [place] Address [address] [place] [address] Support Name Relationship Address Phone HURTADOQING MAZARIEGOSHER Next of Kin [address] [place] [address] BRYANT SRIRAM Emergency Contact [address] [place] [address] Selected Encounter This section includes the information on record at [place] for the Encounter. Date/Time Encounter Type Encounter Description Reason Pro vider Source July 08, 2023 12:00 PM Outpatient Encounter COMMUNITY CARE CONSULT IHE Encounter Template Text not used by [place] Plan of Treatment: Future Appointments (+ 6 [...] 20 appointments. The data comes from all [place] treatment facilities. Appointment Date/Time Appointment Type Appointme nt Facility Name July 16, 2023 08:30 AM AMBULATORY - PSYCHIATRY [facility] July 20, 2023 02:00 PM AMBULATORY - MEDICINE [facility] July 21, 2023 10:00 AM AM[place]ORY [place] [facility] [facility] July 22, 2023 12:00 PM AMBULATORY - MEDICINE [place] [facility] [place] [facility] July 24, 2023 02:00 PM AMBULATORY - [place]IC[place] [facility] [place] [facility] July 31, 2023 10:00 AM AMBULATORY - NONE [facility] [place] [facility] Aug 06, 2023 09:30 AM AMBULATORY - MEDICINE [facility] [place] [facility] Aug 11, 2023 10:00 AM AMBULATORY - PSYCHIATRY [facility] [place] [facility] Sep 11, 2023 08:30 AM AMBULATORY - REHAB MEDICIN E [facility] [place] [facility] Sep 21, 2023 11:00 AM AMBULATORY - MEDICINE [place] [facility] [place] [facility] Sep 23, 2023 04:00 PM AMBULATORY - REHAB MEDICIN E [facility] [place] [facility] Sep 24, 2023 02:00 PM AMBULATORY - PSYCHIATRY [facility] [place] [facility] Sep 25, 2023 08:15 AM AMBULATORY - MEDICINE [place] [facility] [place] [facility] Sep 28, 2023 11:00 AM AMBULATORY - MEDICINE [facility] [place] [facility] Oct 01, 2023 03:30 PM AMBULATORY - REHAB MEDICIN E [facility] [place] [facility] Oct 05, 2023 11:00 AM AMBULATORY - MEDICINE [place] [facility] [place] [facility] Oct 06, 2023 04:30 PM AMBULATORY - REHAB MEDICIN E [facility] [place] [facility] Oct 13, 2023 04:30 PM AMBULATORY - REHAB MEDICIN E [facility] [place] [facility] Oct 15, 2023 01:30 PM AMBULATORY - REHAB MEDICIN E [facility] [place] [facility] Oct 26, 2023 11:00 AM AMBULATORY - [place]ICINE [place] [facility] [place] [facility] Radiology Reports: +/- 30 days [...] the Encounter. The data comes from all [place] treatment facilities. Date/Time Radiology Report Provider Source July 22, 2023 12:00 PM OUTSIDE MRI CERVIC AL SPINE: MACK HURTADO [id number] -1975 M Exm Date: JULY 22, 2023@12:00 Req Phys: MARTI BUTLER Loc: CWM/SO/PACT 3 WH (Req'g Loc) Img Loc: OUTSIDE GENERAL RADIOLOGY Service: Unknown (Case [id number] COMPLETE) OUTSIDE MRI CERVICAL SPINE (RAD Detailed) CPT:22517 Reason for Study: cerv radiculopathy Clinical History: paresthesias both hands radial distribution Report Status: Electronically Filed Date Reported: JULY 22, 2023 Report: Community care exam; see CPRS/JLV for outside radiology report/results Impression: Community care exam; see CPRS/JLV for outside radiology report/results Primary Diagnostic Code: VERIFIED BY: / *ELECTRONICALLY FILED* [facility] Encounter Notes: All associated encounter notes This section contains the clinical notes associated to the Encounter. Date/Time Encounter Note(s) Provider Source July 08, 2023 12:00 PM NONVA CONSULT: LOCAL TITLE: COMMUNITY CARE-CONSULT RESULT NOTE STANDARD TITLE: NONVA CONSULT DATE OF NOTE: JULY 08, 2023@12:00 ENTRY DATE: JULY 28, 2023@12:39:40 AUTHOR: LAYLA CHIN COSIGNER: URGENCY: STATUS: COMPLETED VistA Imaging - Scanned Document SCANNED DOCUMENT SIGNATURE NOT REQUIRED Electronically Filed: 07/28/2023 by: LAYLA GIL [facility]
--- OUTSIDE RECORDS SUMMARY | 2024-02-16 07:33 | XMS_ITS ---
Author Name Department of Vetera ns Affairs ([place]) Organization Department of [place]) Address [address] [place] [address] Support Name Relationship Address Phone HURTADOQING MAZARIEGOSHER Next of Kin [address] [place] [address] HURTADOQING MAZARIEGOSHER Emergency Contact [address] [place] [address] Selected Encounter This section includes the information on record at [place] for the Encounter. Date/Time Encounter Type Encounter Description Reason Pro vider Source July 31, 2023 12:00 AM Outpatient Encounter EVENT (HISTORICAL) IHE Encounter Template Text not used by [place] Plan of Treatment: Future Appointments (+ 6 months) and Future Tests (+/- 45 days) The Plan of Treatment section includes future care activities for the patient from all [place] treatmentfacilities. This section includes future appointments and future orders which are active, pending or scheduled. Future Appointments This section includes appointments that were scheduled to occur 6 months from the date of the Encounter, up to a maximum of 20 appointments. The data comes from all [place] treatment facilities. Appointment Date/Time Appointment Type Appointme nt Facility Name Aug 06, 2023 09:30 AM AMBULATORY [place]ICINE [place] [facility] [place] [facility] Aug 11, 2023 10:00 AM AMBULATORY - PS[place]CHIATRY [place] [facility] [place] [facility] Sep 11, 2023 08:30 AM AMBULATORY - REHAB MEDICIN E [facility] [place] [facility] Sep 21, 2023 11:00 AM AMBULATORY - [place]INE [place] [facility] [facility] Sep 23, 2023 04:00 PM AMBULATORY - REHAB MEDICIN E [facility] [place] [facility] Sep 24, 2023 02:00 PM AMBULATORY - PS[facility]CHIATRY [facility] [place] [facility] Sep 25, 2023 08:15 AM AMBULATORY - MEDICINE [place] [facility] [place] [facility] Sep 28, 2023 11:00 AM AMBULATORY - MEDICINE [place] [facility] [place] [facility] Oct 01, 2023 03:30 PM AMBULATORY - REHAB MEDICIN E [facility] [place] [facility] Oct 05, 2023 11:00 AM AMBULATORY - MEDICINE [place] [facility] [facility] Oct 06, 2023 04:30 PM AMBULATORY - REHAB MEDICIN E [facility] [place] [facility] Oct 13, 2023 04:30 PM AMBULATORY - REHAB MEDICIN E [facility] [place] [facility] Oct 15, 2023 01:30 PM AMBULATORY - REHAB MEDICIN E [facility] [place] [facility] Oct 26, 2023 11:00 AM AMBULATORY - MEDICINE [place] [facility] [facility] Oct 26, 2023 03:30 PM AMBULATORY - MEDICINE [place] [facility] [facility] Oct 27, 2023 04:30 PM AMBULATORY - REHAB MEDICIN E [facility] [place] [facility] Nov 05, 2023 03:00 PM AMBULATORY - REHAB MEDICIN E [facility] [place] [facility] Nov 19, 2023 04:30 PM AMBULATORY - REHAB MEDICIN E [facility] [place] [facility] Nov 25, 2023 02:30 PM AMBULATORY - REHAB MEDICIN E [facility] [place] [facility] Dec 07, 2023 10:30 AM AMBULATORY - PS[place]CHIATRY [facility] [place] [facility] Active, Pending, and Scheduled Orders This section includes a listing of several types of active, pending, and scheduled orders, including clinic medications orders, diagnostic test orders, procedure orders and consult orders; where the start date of the order is 45 days before the date of the Encounter or 45 days after the date of theEncounter. The data comes from all [place] treatment facilities. Test Date/Time Test Type Test Details Facility Name Aug 30, 2023 12:00 AM Laboratory - Chemi [facility] Order CALCIUM BLOOD (SST-SERUM) [facility] Aug 30, 2023 12:00 AM Laboratory - Chemi stry Order URIC ACID BLOOD (SST-SERUM) [facility] Aug 30, 2023 12:00 AM Laboratory - Chemi stry Order PSA BLOOD (SST-SERUM) [facility] Aug 30, 2023 12:00 AM Laboratory - Chemi stry Order FERRITIN BLOOD (SST-SERUM) [facility] Aug 30, 2023 12:00 AM Laboratory - Chemi stry Order VITAMIN D (25-OH) BLOOD (SST-SERUM) [facility] Aug 30, 2023 12:00 AM Laboratory - Chemi stry Order VITAMIN B12 BLOOD (SST-SERUM) [facility] Aug 30, 2023 12:00 AM Laboratory - Chemi stry Order BASIC METABOLIC PANEL (fasting) BLOOD (SST-SERUM) [facility] Aug 30, 2023 12:00 AM Laboratory - Chemi stry Order LIPID PANEL FASTING BLOOD (SST-SERUM) [facility] Aug 30, 2023 12:00 AM Laboratory - Chemi stry Order LIVER FUNCTION BLOOD (SST-SERUM) [facility] Aug 30, 2023 12:00 AM Laboratory - Chemi stry Order CBC AND DIFF (AUTO) BLOOD (LAV-BLOOD) [facility] Aug 30, 2023 12:00 AM Laboratory - Chemi stry Order HEMOGLOBIN A1C PANEL BLOOD (LAV-BLOOD) [facility] Aug 30, 2023 12:00 AM Laboratory - Chemi stry Order TSH BLOOD (SST-SERUM) [facility] Radiology Reports: +/- 30 days of the [...] the Encounter. The data comes from all [place] treatment facilities. Date/Time Radiology Report Provider Source July 22, 2023 12:00 PM OUTSIDE MRI CERVIC AL SPINE: MACK HURTADO Dulce [id number] -1975 M Exm Date: JULY 22, 2023@12:00 Req Phys: MARTI BUTLER Loc: CWM/SO/PACT 3 WH (Req'g Loc) Img Loc: OUTSIDE GENERAL RADIOLOGY Service: Unknown (Case [id number] COMPLETE) OUTSIDE MRI CERVICAL SPINE (RAD Detailed) CPT:46204 Reason for Study: cerv radiculopathy Clinical History: paresthesias both hands radial distribution Report Status: Electronically Filed Date Reported: JULY 22, 2023 Report: Community care exam; see CPRS/JLV for outside radiology report/results Impression: Community care exam; see CPRS/JLV for outside radiology report/results Primary Diagnostic Code: VERIFIED BY: / *ELECTRONICALLY FILED* [facility]
--- OUTSIDE RECORDS SUMMARY | 2024-02-16 07:34 | XMS_ITS | Encounter Summary ---
Author Name [facility] [place] Organization [facility] [place] Address [address] [place] [id number] Support Name Relationship Address Phone HURTADOQING MAZARIEGOSHER Next of Kin [address] [place] [address] HURTADOQING MAZARIEGOSHER Emergency Contact [address] [place] [address] Selected Encounter This section includes [...] 10, 2023 12:30 PM AMBULATORY - MEDICINE [place] [facility] [place] [facility] Jun 19, 2023 10:00 AM AMBULATORY - MEDICINE [place] [facility] [place] [facility] Jun 23, 2023 08:00 AM AMBULATORY - MEDICINE [place] [facility] [place] [facility] Jun 24, 2023 08:00 AM AMBULATORY - PSYCHIATRY [facility] July 07, 2023 10:00 AM AMBULATORY - NONE [place] [facility] [place] [facility] July 16, 2023 08:30 AM AMBULATORY - PSYCHIATRY [facility] July 20, 2023 02:00 PM AMBULATORY - MEDICINE [facility] [place] July 21, 2023 10:00 AM AMBULATORY - MEDICINE [place] [facility] [facility] July 22, 2023 12:00 PM AMBULATORY - MEDICINE [place] [facility] [facility] July 24, 2023 02:00 PM AMBULATORY - MEDICINE [place] [facility] [facility] July 31, 2023 10:00 AM AMBULATORY - NONE [facility] [place] [facility] Aug 06, 2023 09:30 AM AMBULATORY - MEDICINE [place] [facility] [facility] Aug 11, 2023 10:00 AM AMBULATORY - PSYCHIATRY [facility] [place] [facility] Sep 11, 2023 08:30 AM AMBULATORY - REHAB MEDICIN E [facility] [place] [facility] Sep 21, 2023 11:00 AM AMBULATORY - MEDICINE [place] [facility] [facility] Sep 23, 2023 04:00 PM AMBULATORY - REHAB MEDICIN E [facility] [place] [facility] Sep 24, 2023 02:00 PM AMBULATORY - PSYCHIATRY [facility] [place] [facility] Sep 25, 2023 08:15 AM AMBULATORY - MEDICINE [facility] [facility] Sep 28, 2023 11:00 AM AMBULATORY - MEDICINE [facility] [place] [facility] Oct 01, 2023 03:30 PM AMBULATORY - REHAB MEDICIN E [facility] [place] [facility] Encounter Notes: All associated encounter notes This section contains the clinical notes associated to the Encounter. Date/Time Encounter Note(s) Provider Source Apr 06, 2023 12:00 AM NONVA NOTE: LOCAL TITLE: NON-VA MEDICAL RECORD SUMMARY STANDARD TITLE: NONVA NOTE DATE OF NOTE: APR 06, 2023 ENTRY DATE: AUG 06, 2023@16:36:48 AUTHOR: REECE CARREON [place] COSIGNER: URGENCY: STATUS: COMPLETED VistA Imaging - Scanned Document SCANNED DOCUMENT SIGNATURE NOT REQUIRED Electronically Filed: 08/06/2023 by: REECE CARREON TELEVISION PRESENTER REECE CARREON [facility]
--- OUTSIDE RECORDS SUMMARY | 2024-02-16 07:35 | XMS_ITS | Encounter Summary ---
Author Name [facility] [place] [facility] [place] Address [address] [place] [id number] Support Name Relationship Address Phone SRIRAM DIANE Next of Kin [address] [place] [address] QING DIANEHER Emergency Contact [address] [place] [address] Selected Encounter This section includes the information on record at [place] for the Encounter. Date/Time Encounter Type Encounter Description Reason Provider Source Aug 11, 2023 10:00 AM OFF/OP CNSLTJ NEW/EST MOD [facility] - IND ICD-10-CM F90.0 Attn-defct hyperactivity disorder, predom inattentive type ITALO JOINER Judith Encounter Template Text not used by [place] Assessments - Encounter Diagnoses This section includes the primary and secondary diagnoses documented for the Encounter. Date/Time Primary/Secondary Diagnosis Diagnosis Name Provider Source Aug 11, 2023 10:45 AM PRIMARY Attn-defct hyperactivity disorder, predom inattentive type MESFIN JOINER Aug 11, 2023 10:45 AM SECONDARY Major depressive disorder, recurrent, moderate MESFIN JOINER Plan of Treatment: Future Appointments (+ 6 months) and Future Tests (+/- 45 days) The Plan of Treatment section includes future care activities for the patient from all [place] treatmentfacilities. This section includes future appointments and future orders which are active, pending or scheduled. Future Appointments This section includes appointments that were scheduled to occur 6 months from the date of the Encounter, up to a maximum of 20 appointments. The data comes from all [place] treatment facilities. Appointment Date/Time Appointment Type Appointme nt Facility Name Sep 11, 2023 08:30 AM AM[facility] Sep 21, 2023 11:00 AM AMBULATORY - MEDICINE [place] [facility] [place] [facility] Sep 23, 2023 04:00 PM AMBULATORY - REHAB MEDICIN E [facility] [place] [facility] Sep 24, 2023 02:00 PM AMBULATORY - PSYCHIATRY [facility] [place] [facility] Sep 25, 2023 08:15 AM AMBULATORY - MEDICINE [facility] [place] [facility] Sep 28, 2023 11:00 AM AMBULATORY - MEDICINE [facility] [place] [facility] Oct 01, 2023 03:30 PM AMBULATORY - REHAB MEDICIN E [facility] [place] [facility] Oct 05, 2023 11:00 AM AMBULATORY - MEDICINE [facility] [place] [facility] Oct 06, 2023 04:30 PM AMBULATORY - REHAB MEDICIN E [facility] [place] [facility] Oct 13, 2023 04:30 PM AMBULATORY - REHAB MEDICIN E [facility] [place] [facility] Oct 15, 2023 01:30 PM AMBULATORY - REHAB MEDICIN E [facility] [place] [facility] Oct 26, 2023 11:00 AM AMBULATORY - MEDICINE [facility] [place] [facility] Oct 26, 2023 03:30 PM AMBULATORY - MEDICINE [facility] [place] [facility] Oct 27, 2023 04:30 PM AMBULATORY - REHAB MEDICIN E [facility] [place] [facility] Nov 05, 2023 03:00 PM AMBULATORY - REHAB MEDICIN E [facility] [place] [facility] Nov 19, 2023 04:30 PM AMBULATORY - REHAB MEDICIN E [facility] [place] [facility] Nov 25, 2023 02:30 PM AMBULATORY - REHAB MEDICIN E [facility] [place] [facility] Dec 07, 2023 10:30 AM AMBULATORY - PSYCHIATRY [facility] [place] [facility] Dec 08, 2023 08:30 AM AMBULATORY - REHAB MEDICIN E [facility] [place] [facility] Dec 09, 2023 04:30 PM AMBULATORY - REHAB MEDICIN E [facility] [place] [facility] Active, Pending, and Scheduled Orders This section includes a listing of several types of active, pending, and scheduled orders, including clinic medications orders, diagnostic test orders, procedure orders and consult orders; where the start date of the order is 45 days before the date of the Encounter or 45 days after the date of theEncounter. The data comes from all [place] treatment facilities. Test Date/Time Test Type Test Details Facility Name Aug 30, 2023 12:00 AM Laboratory - Chemi stry Order CALCIUM BLOOD (SST-SERUM) [facility] Aug 30, 2023 12:00 AM Laboratory - Chemi stry Order URIC ACID BLOOD (SST-SERUM) [facility] Aug 30, 2023 12:00 AM Laboratory - Chemi stry Order PSA BLOOD (SST-SERUM) [facility] Aug 30, 2023 12:00 AM Laboratory - Chemi stry Order VITAMIN D (25-OH) BLOOD (SST-SERUM) [facility] Aug 30, 2023 12:00 AM Laboratory - Chemi stry Order FERRITIN BLOOD (SST-SERUM) [facility] Aug 30, 2023 12:00 AM Laboratory - Chemi stry Order VITAMIN B12 BLOOD (SST-SERUM) [facility] Aug 30, 2023 12:00 AM Laboratory - Chemi stry Order BASIC METABOLIC PANEL (fasting) BLOOD (SST-SERUM) [facility] Aug 30, 2023 12:00 AM Laboratory - Chemi stry Order LIPID PANEL FASTING BLOOD (SST-SERUM) [facility] Aug 30, 2023 12:00 AM Laboratory - Chemi stry Order LIVER FUNCTION BLOOD (SST-SERUM) [facility] Aug 30, 2023 12:00 AM Laboratory - Chemi stry Order CBC AND DIFF (AUTO) BLOOD (LAV-BLOOD) [facility] Aug 30, 2023 12:00 AM Laboratory - Chemi stry Order HEMOGLOBIN A1C PANEL BLOOD (LAV-BLOOD) [facility] Aug 30, 2023 12:00 AM Laboratory - Chemi stry Order TSH BLOOD (SST-SERUM) [facility] Social History: Smoking Status (Most current) and Tobacco Use (All prior to encounter date) This section includes the most current, and the historical, smoking and tobacco- related health factors from the [place] facility where the Encounter took place. Current Smoking Status This section includes the most current smoking, or tobacco-related health factor, from the [place] facility where the Encounter took place. Date/Time Current Smoking Status Comment Joanne martinezy July 16, 2023 08:30 AM VA-TOBACCO NEVER USED [place] Radiology Reports: +/- 30 days of the [...] the Encounter. The data comes from all [place] treatment facilities. Date/Time Radiology Report Provider Source July 22, 2023 12:00 PM OUTSIDE MRI CERVIC AL SPINE: MACK DIANE Dulce [id number] -[id number] M Exm Date: JULY 22, 2023@12:00 Req Phys: MARTI BUTLER Loc: CWM/SO/PACT 3 WH (Req'g Loc) Img Loc: OUTSIDE GENERAL RADIOLOGY Service: Unknown (Case [id number] COMPLETE) OUTSIDE MRI CERVICAL SPINE (RAD Detailed) CPT:66399 Reason for Study: cerv radiculopathy Clinical History: paresthesias both hands radial distribution Report Status: Electronically Filed Date Reported: JULY 22, 2023 Report: Community care exam; see CPRS/JLV for outside radiology report/results Impression: Community care exam; see CPRS/JLV for outside radiology report/results Primary Diagnostic Code: VERIFIED BY: / *ELECTRONICALLY FILED* [place] [facility] [place] [facility] Encounter Notes: All associated encounter notes This section contains the clinical notes associated to the Encounter. Date/Time Encounter Note(s) Provider Source Aug 11, 2023 10:10 AM ACCOUNTING OF DISC LOSURES NOTE: LOCAL TITLE: STATE PRESCRIPTION DRUG MONITORING PROGRAM STANDARD TITLE: ACCOUNTING OF DISCLOSURES NOTE DATE OF NOTE: AUG 11, 2023@10:10:07 ENTRY DATE: AUG 11, 2023@10:10:07 AUTHOR: MESFIN JOINER EXP COSIGNER: URGENCY: STATUS: COMPLETED This PDMP query was submitted by Mesfin Joiner. The clinical justification for this PDMP query is to review controlled substances prescribed outside of the [facility], and any additional information that may become available, as an important component of standard clinical care, and in accordance with [facility] policy. Patient information was shared with the PDMP [place]. No prescription(s) for controlled substances outside the VA were found in the last 90 days. /cherri/ MESFIN JOINER M.D. Signed: 08/11/2023 10:47 MESFIN JOINER [place] Aug 11, 2023 09:59 AM TELEHEALTH CONSULT : LOCAL TITLE: CONSULT REPORT/VA VIDEO CONNECT PSYCHIATRIST NOTE STANDARD TITLE: TELEHEALTH CONSULT DATE OF NOTE: AUG 11, 2023@09:59 ENTRY DATE: AUG 11, 2023@10:02:02 AUTHOR: MESFIN JOINER EXP COSIGNER: URGENCY: STATUS: COMPLETED [place] Video Connect (VVC) Standard Documentation VVC Clinician Resources Only: E911 (Emergency Call Relay Center): [phone] [facility] Crisis Line - 988 then press #1. [facility] Suicide Coordinator [phone], Ext. [phone]; Back-up Ext. [phone] [place] Police, [place], [place] [phone] Introduction: Visit is being conducted by [employer]. identified with 2 identifiers: [X] Full Name [X] Date of [ ] [place] ID Card Emergency Plan: [place] confirmed and/or provided the following information in case of emergency or technology failure. PATIENT PHONE - PHONE NUMBER [CELLULAR] - Is patient phone number correct, if not, enter below: [place]'s phone number: MACK DIANE [address], [place], [address] [place]'s present location and address for appointment: same as above [place]'s emergency contact name and phone number: sriram gaitan, reported that location is private and safe: Yes Informed Consent: informed of the risks and benefits of Telehealth video care. has the right to refuse video services. If refuses video visit, a [id number] visit will be scheduled. verbalized consent for this video visit: Yes provided consent for any other persons present for visit: Yes If yes, who and relationship to patient: Secure visit: Visit was locked for security and privacy:Yes 60 min spent with patient, chart reviewed -- including intake note. Limits of confidentiality reviewed with pt -- Cheng warning given (I reviewed rights and limits of confidentiality, mandatory reporting situations, duty to warn and protect, ie: if treatment team finds patient to be an acute danger to themselves or others, that this information could be relayed to a court of law and presented to a insole rasper) MACK DIANE is a 47 year old MALE who presents for psychiatric evaluation on this date HISTORY OF PRESENT ILLNESS: CHART REVIEW: seen for initial MH consult 07/16/23, noting: SUMMARY AND IMPRESSIONS: Mack Diane is a 47 year old, , domiciled, retired, heterosexual, cisgender [employer] who is not currently service connected. [place]'s main goal today is to meet with a prescriber regarding attentional concerns. He is beginning a Bachelor's Degree at [employer]. He has 2 associates degrees. He reports [...] to himself and others at this time. What are some of your goals for treatment: Mainly wanting medication and assistance with my focus. If I'm taking one class at a time, I'm fine. But once I'm taking multiple classes, I'm really overwhelmed and frustrated. I've had some bad experiences with medications but depression but I'm willing to talk to psychaitrist about options? Depression and anxiety starting around 2007 is when I noticed. Attentional symptoms- probably started in 2nd grade or earlier,but I've found ways to cope. I find [...] before i got out. I was in [place] Mar 2018- said she was leaving me [...] didn't know he was in that place. PRESENTATION AT TIME OF INITIAL VISIT WITH MYSELF 08/11/23: [place] reports he was diagnosed with ADHD at the [facility] by Teofilo Velásquez a few months ago as he was getting out of the and wanted to return to school. He never sought treatment while in the due to restrictions on meds he could take. States he has wanted to see a psychiatrist for the past 2 years to address this. Notes he is now in school it's a struggle. Focus, attention, completing projects. I can read for about 30 minutes, I find myself re-reading and not comprehending b/c my mind is elsewhere. It takes me all day for something that should take an hour. My mind goes everywhere. It has to be a deadline to focus . Under stress will feel detached and unable to make decisions, feel unmotivated, not want to talk to anyone seems to last until I can't ignore that situation any longer , when it starts to resolve he feels better. PSYCHIATRIC HISTORY: Symptoms of depression and anxiety- pcp put [...] ended up causing me to retire early. Hospitalizations: Patient denies. Suicide Attempts: Patient denies Violence: denies Trauma Hx/Symptoms: see above Depressive Episodes: episodes last 3-4 days, occur 2-3 x/month, at times > 2 weeks occurs 1-2 x/year (longest 3-4 weeks) Adult ADHD Self-Report Scale Never Rarely Sometimes Often Very Often 1.How often do you have trouble wrapping up the final details of a project, once the challenging parts have been done? V Often always 2. How often do you have difficulty getting things in order when you have to do a task that requires organization? sometimes 3. How often do you have problems remembering appointments or obligations? V Often always 4. When you have a task that requires a lot of thought, how often do you avoid or delay getting started? V often 5.How often do you fidget or squirm with your hands or feet when you have to sit down for a long time? As child, not now 6.How often do you feel overly active and compelled to do things, like you were driven by a motor? not Manic episodes: denies Rapid Mood Screener (DAJUAN) 1. Have there been at least 6 different periods of time (at least 2 weeks) when you felt deeply depressed? no 2. Did you have problems with depression before the age of 19? no 3. Have you ever had to stop or change your antidepressant because it made you highly irritable or hyper? yes 4. Have you ever had a period of at least 1 week during which you were more talkative than normal with thoughts racing in your head? no 5. Have you ever had a period of at least 1 week during which you felt any of the following: unusually happy; unusually outgoing; or unusually energetic? no 6. Have you ever had a period of at least 1 week during which you needed much less sleep than usual? no Outpatient Treatment: Current: Teofilo at [facility]. He talks me off the ledge. Helps me maintain perspective. Tells me I'm normal. Prior: [id number], threw a chair against a wall, wallpaper hanger helper were called, and they said we had to go to family therapy. Saw him until 2007. We took childrearing classes. Past Medication Trials: Prozac, didn't help; wellbutrin increased impulsivity CURRENT MEDICATIONS: diclofenac, gabapentin, tizanidine prn SUBSTANCE USE HISTORY: Alcohol: none Drugs: none Tobacco: none/never REVIEW OF SYSTEMS A focused review of systems was performed, which noted joint pain (arthritis back and neck) FAMILY PSYCHIATRIC HISTORY: mother depression, children all ADHD (youngest did best on concerta since age 8, is now 18; son Ag anxiety/Tourette's Rx Strattera/buspar; son Mack bipolar??, Oldest Jenniffer ADHD, no meds) SOCIAL STATUS: June 2000- 4 children. No previous marriages. No divorces. 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 The ending really spoiled everything. HISTORY: see record Occupation: Currently unemployed after retiring from the . Was unable to find work. Back in school now for a bachelors degree- [employer]. CURRENT MEDICATIONS : Active Outpatient Medications (including Supplies): Active Outpatient Medications Status ===== 1) GABAPENTIN 300MG CAP TAKE ONE CAPSULE BY MOUTH TWICE ACTIVE DAILY FOR NERVE PAIN PAST MEDICAL HISTORY: Active problems - Computerized Problem List is the source for the followin. Blurred vision 2. Exposure to potentially hazardous substance (SCT [id number]) 3. Ulnar nerve entrapment 4. Contact with and (suspected) exposure to other hazardous substances 5. Other Contact with and (Suspected) Exposures Hazardous to Health 6. Nasal Congestion 7. Postnasal drip VS/ RECENT LABS: SVS - Vital Signs Selected (max 6 months) Measurement DT HEIGHT WEIGHT BP PULSE IN(CM) LB(KG)[BMI] 07/20/2023 14:23 69(175.26) 227(102.97)[34*] 119/82 80 ALLERGIES:Patient has answered NKA MENTAL STATUS EXAMINATION - Appearance and behavior: Appears stated age, appropriately groomed and dressed, pleasant and cooperative - Speech and language: without impairment of rate, rhythm, inflection, volume, or fluency, without latency - Mood: as noted above - Affect: without lability or agitation - Thought Process: Linear, logical; no loosening of associations or FOI - Thought Content: without delusions (paranoia, thought broadcasting, thought withdrawal, thought insertion, ideas of reference) - Perceptions: Denies auditory and visual hallucinations - IMPULSES/HARM: - Wishes to be ? SI: in past thoughts that he'd be OK if something happened to kill him, intrusive/fleeting - Reasons for living identified: my family. There's a lot of good things going on - Lethal means assessment: no weapons in home - Cognition: No noted impairment - Insight: no impairment evident - Judgment: no impairment evident INITIAL ASSESSMENT/ DIAGNOSIS AND RECOMMENDATIONS: presents with hx of recurrent depression and PTSD and appears to meet criteria for ADHD inattentive type which is what he feels he needs the most help with at this point. We reviewed options including Strattera vs stimulants. Given son's response to Concerta we agreed to try this. Understands this is a controlled substance, risks and warnings reviewed. DISCUSSION: reviewed and discussed medication options: risks, side effects and alternatives understood and accepted; answered patient questions. This also included discussion of potential drug interactions with the psychiatric medication. Patient demonstrated reasonable understanding of the medication side effects and the above issues. The benefits of psychiatric medications outweigh risks for this patient. Pt consents to medication treatment RISK: no evidence of acute risk of harm to self or others. PLAN OF CARE Medications: as noted above Diagnostic Workup: - LABS: none ordered/required Referrals: 1. PC: Follow up with your PCP as scheduled. 2. Psychotherapy Referral: ( ) yes (x ) no 3. Urgent Care / PCP Referral: None needed at this time 4. Nutrition Referral/ plan for elevated BMI: ( )recommended weight loss and regular exercise ( x) n/a 5. Other Specialty Referrals: None needed at this time FOLLOW-UP: initial follow up with myself in 4 weeks; sooner if needed to Open Access. To schedule or change an appointment, inquire about medication refills, etc: call office number during normal office hours PREVENTION: (x ) Pt agrees to contact provider sooner if SI/HI onset or worsen ( x ) Pt agreed to adhere to [place] plan ( x ) Pt is aware of 911/ Crisis Line (988) emergency services and will utilize if needed MEDICAL NECESSITY: ( x ) improve/ prevent decline in functioning ( ) Prevent hospitalization ( ) Sustain goals ( ) Solidify new coping skills /es/ MESFIN JOINER M.D. Signed: 08/11/2023 10:47 MESFIN JOINERFIELD
--- OUTSIDE RECORDS SUMMARY | 2024-02-16 07:36 | XMS_ITS ---
Author Name [facility] Organization [place] Address [address] [place] [id number] Support Name Relationship Address Phone HURTADOQING MAZARIEGOSHER Next of Kin [address] [place] [address] BRYANTQINGSRIRAM Emergency Contact [address] [place] [address] Selected Encounter This section includes the information on record at [place] for the Encounter. Date/Time Encounter Type Encounter Description Reason Pro vider Source July 31, 2023 12:00 AM Outpatient Encounter COMMUNITY CARE CONSULT IHE Encounter Template Text not used by [place] Plan of Treatment: Future Appointments (+ 6 [...] 20 appointments. The data comes from all [place] treatment facilities. Appointment Date/Time Appointment Type Appointme nt Facility Name Aug 06, 2023 09:30 AM AMBULATORY - MEDICINE [place] [facility] [place] [facility] Aug 11, 2023 10:00 AM AMBULATORY - PSYCHIATRY [place] [facility] [place] [facility] Sep 11, 2023 08:30 AM AMBULATORY - REHAB MEDICIN E [place] [facility] [place] [facility] Sep 21, 2023 11:00 AM AMBULATORY - MEDICINE [place] [facility] [place] [facility] Sep 23, 2023 04:00 PM AMBULATORY - REHAB MEDICIN E [facility] [place] [facility] Sep 24, 2023 02:00 PM AMBULATORY - PSYCHIATRY [facility] [place] [facility] Sep 25, 2023 08:15 AM AMBULATORY - MEDICINE [place] [facility] [place] [facility] Sep 28, 2023 11:00 AM AMBULATORY - MEDICINE [place] [facility] [place] [facility] Oct 01, 2023 03:30 PM AMBULATORY - REHAB MEDICIN E [facility] [place] [facility] Oct 05, 2023 11:00 AM AMBULATORY - MEDICINE [place] [facility] [place] [facility] Oct 06, 2023 04:30 PM AMBULATORY - REHAB MEDICIN E [facility] [place] [facility] Oct 13, 2023 04:30 PM AMBULATORY - REHAB MEDICIN E [facility] [place] [facility] Oct 15, 2023 01:30 PM AMBULATORY - REHAB MEDICIN E [facility] [place] [facility] Oct 26, 2023 11:00 AM AMBULATORY - MEDICINE [place] [facility] [place] [facility] Oct 26, 2023 03:30 PM AMBULATORY - MEDICINE [place] [facility] [place] [facility] Oct 27, 2023 04:30 PM AMBULATORY - REHAB MEDICIN E [facility] [place] [facility] Nov 05, 2023 03:00 PM AMBULATORY - REHAB MEDICIN E [facility] [place] [facility] Nov 19, 2023 04:30 PM AMBULATORY - REHAB MEDICIN E [facility] [place] [facility] Nov 25, 2023 02:30 PM AMBULATORY - REHAB MEDICIN E [facility] [place] [facility] Dec 07, 2023 10:30 AM AMBULATORY - PSYCHIATRY [place] [facility] [place] [facility] Active, Pending, and Scheduled Orders This section includes a listing of several types of active, pending, and scheduled orders, including clinic medications orders, diagnostic test orders, procedure orders and consult orders; where the start date of the order is 45 days before the date of the Encounter or 45 days after the date of theEncounter. The data comes from all [place] treatment facilities. Test Date/Time Test Type Test Details Facility Name Aug 30, 2023 12:00 AM Laboratory - Chemi [facility] Order CALCIUM BLOOD (SST-SERUM) [facility] Aug 30, 2023 12:00 AM Laboratory - Chemi stry Order URIC ACID BLOOD (SST-SERUM) [facility] Aug 30, 2023 12:00 AM Laboratory - Chemi stry Order PSA BLOOD (SST-SERUM) [facility] Aug 30, 2023 12:00 AM Laboratory - Chemi stry Order FERRITIN BLOOD (SST-SERUM) [facility] Aug 30, 2023 12:00 AM Laboratory - Chemi stry Order VITAMIN D (25-OH) BLOOD (SST-SERUM) [facility] Aug 30, 2023 12:00 AM Laboratory - Chemi stry Order BASIC METABOLIC PANEL (fasting) BLOOD (SST-SERUM) [facility] Aug 30, 2023 12:00 AM Laboratory - Chemi stry Order VITAMIN B12 BLOOD (SST-SERUM) [facility] Aug 30, 2023 12:00 AM Laboratory - Chemi stry Order LIPID PANEL FASTING BLOOD (SST-SERUM) [facility] Aug 30, 2023 12:00 AM Laboratory - Chemi stry Order LIVER FUNCTION BLOOD (SST-SERUM) [facility] Aug 30, 2023 12:00 AM Laboratory - Chemi stry Order CBC AND DIFF (AUTO) BLOOD (LAV-BLOOD) [facility] Aug 30, 2023 12:00 AM Laboratory - Chemi stry Order HEMOGLOBIN A1C PANEL BLOOD (LAV-BLOOD) [facility] Aug 30, 2023 12:00 AM Laboratory - Chemi stry Order TSH BLOOD (SST-SERUM) [facility] Radiology Reports: +/- 30 days of [...] the Encounter. The data comes from all [place] treatment facilities. Date/Time Radiology Report Provider Source July 22, 2023 12:00 PM OUTSIDE MRI CERVIC AL SPINE: MACK HURTADO [id number] -1975 M Exm Date: JULY 22, 2023@12:00 Req Phys: MARTI BUTLER Loc: CWM/SO/PACT 3 WH (Req'g Loc) Img Loc: OUTSIDE GENERAL RADIOLOGY Service: Unknown (Case [id number] COMPLETE) OUTSIDE MRI CERVICAL SPINE (RAD Detailed) CPT:15206 Reason for Study: cerv radiculopathy Clinical History: paresthesias both hands radial distribution Report Status: Electronically Filed Date Reported: JULY 22, 2023 Report: Community care exam; see CPRS/JLV for outside radiology report/results Impression: Community care exam; see CPRS/JLV for outside radiology report/results Primary Diagnostic Code: VERIFIED BY: / *ELECTRONICALLY FILED* [facility] Encounter Notes: All associated encounter notes This section contains the clinical notes associated to the Encounter. Date/Time Encounter Note(s) Provider Source July 31, 2023 12:00 AM NONVA CONSULT: LOCAL TITLE: COMMUNITY CARE-CONSULT RESULT NOTE STANDARD TITLE: NONVA CONSULT DATE OF NOTE: JULY 31, 2023 ENTRY DATE: AUG 14, 2023@13:36:10 AUTHOR: HERNANDEZ SAUER EXP COSIGNER: URGENCY: STATUS: COMPLETED VistA Imaging - Scanned Document SCANNED DOCUMENT SIGNATURE NOT REQUIRED Electronically Filed: 08/14/2023 by: HERNANDEZ JAFFE [facility]
--- OUTSIDE RECORDS SUMMARY | 2024-02-16 07:36 | XMS_ITS | Encounter Summary ---
Author Name Department of Vetera [place] Organization Department of [place] Address [address] [place] [address] Support Name Relationship Address Phone HURTADOQING MAZARIEGOSHER Next of Kin [address] [place] [address] HURTADOQING MAZARIEGOSHER Emergency Contact [address] [place] [address] Selected Encounter This section includes the information on record at [place] for the Encounter. Date/Time Encounter Type Encounter Description Reason Pro vider Source Aug 13, 2023 09:51 AM Outpatient Encounter TELEPHONE/MEDICINE IHE Encounter Template Text not used by [place] Plan of Treatment: Future Appointments (+ 6 months) and Future Tests (+/- 45 days) The Plan of Treatment section includes future care activities for the patient from all [place] treatmentfacilities. This section includes future appointments and future orders which are active, pending or scheduled. Future Appointments This section includes appointments that were scheduled to occur 6 months from the date of the Encounter, up to a maximum of 20 appointments. The data comes from all [place] treatment facilities. Appointment Date/Time Appointment Type Appointme nt Facility Name Sep 11, 2023 08:30 AM AMBULATORY - REHAB MEDICIN E [place] [facility] [place] [facility] Sep 21, 2023 11:00 AM AMBULATORY - MEDICINE [place] [facility] [place] [facility] Sep 23, 2023 04:00 PM AMBULATORY - REHAB MEDICIN E [place] [facility] [place] [facility] Sep 24, 2023 02:00 PM AMBULATORY - PSYCHIATRY [place] [facility] [place] [facility] Sep 25, 2023 08:15 AM AMBULATORY - MEDICINE [place] [facility] [place] [facility] Sep 28, 2023 11:00 AM AMBULATORY - MEDICINE [place] [facility] [place] [facility] Oct 01, 2023 03:30 PM AMBULATORY - REHAB MEDICIN E [facility] [place] [facility] Oct 05, 2023 11:00 AM AMBULATORY - MEDICINE [place] [facility] [place] [facility] Oct 06, 2023 04:30 PM AMBULATORY - REHAB MEDICIN E [facility] [place] [facility] Oct 13, 2023 04:30 PM AMBULATORY - REHAB MEDICIN E [facility] [place] [facility] Oct 15, 2023 01:30 PM AMBULATORY - REHAB MEDICIN E [facility] [place] [facility] Oct 26, 2023 11:00 AM AMBULATORY - MEDICINE [place] [facility] [place] [facility] Oct 26, 2023 03:30 PM AMBULATORY - MEDICINE [place] [facility] [place] [facility] Oct 27, 2023 04:30 PM AMBULATORY - REHAB MEDICIN E [facility] [place] [facility] Nov 05, 2023 03:00 PM AMBULATORY - REHAB MEDICIN E [facility] [place] [facility] Nov 19, 2023 04:30 PM AMBULATORY - REHAB MEDICIN E [facility] [place] [facility] Nov 25, 2023 02:30 PM AMBULATORY - REHAB MEDICIN E [facility] [place] [facility] Dec 07, 2023 10:30 AM AMBULATORY - PSYCHIATRY [facility] [place] [facility] Dec 08, 2023 08:30 AM AMBULATORY - REHAB MEDICIN E [facility] [place] [facility] Dec 09, 2023 04:30 PM AMBULATORY - REHAB MEDICIN E [facility] [place] [facility] Active, Pending, and Scheduled Orders This section includes a listing of several types of active, pending, and scheduled orders, including clinic medications orders, diagnostic test orders, procedure orders and consult orders; where the start date of the order is 45 days before the date of the Encounter or 45 days after the date of theEncounter. The data comes from all [place] treatment facilities. Test Date/Time Test Type Test Details Facility Name Aug 30, 2023 12:00 AM Laboratory - Chemi [facility] Order CALCIUM BLOOD (SST-SERUM) [facility] Aug 30, 2023 12:00 AM Laboratory - Chemi stry Order URIC ACID BLOOD (SST-SERUM) [facility] Aug 30, 2023 12:00 AM Laboratory - Chemi stry Order PSA BLOOD (SST-SERUM) [facility] Aug 30, 2023 12:00 AM Laboratory - Chemi stry Order VITAMIN D (25-OH) BLOOD (SST-SERUM) [facility] Aug 30, 2023 12:00 AM Laboratory - Chemi stry Order FERRITIN BLOOD (SST-SERUM) [facility] Aug 30, 2023 12:00 AM Laboratory - Chemi stry Order VITAMIN B12 BLOOD (SST-SERUM) [facility] Aug 30, 2023 12:00 AM Laboratory - Chemi stry Order BASIC METABOLIC PANEL (fasting) BLOOD (SST-SERUM) [facility] Aug 30, 2023 12:00 AM Laboratory - Chemi stry Order LIPID PANEL FASTING BLOOD (SST-SERUM) [facility] Aug 30, 2023 12:00 AM Laboratory - Chemi stry Order LIVER FUNCTION BLOOD (SST-SERUM) [facility] Aug 30, 2023 12:00 AM Laboratory - Chemi stry Order CBC AND DIFF (AUTO) BLOOD (LAV-BLOOD) [facility] Aug 30, 2023 12:00 AM Laboratory - Chemi stry Order HEMOGLOBIN A1C PANEL BLOOD (LAV-BLOOD) [facility] Aug 30, 2023 12:00 AM Laboratory - Chemi stry Order TSH BLOOD (SST-SERUM) [facility] Radiology Reports: +/- 30 days of [...] the Encounter. The data comes from all [place] treatment facilities. Date/Time Radiology Report Provider Source July 22, 2023 12:00 PM OUTSIDE MRI CERVIC AL SPINE: MACK HURTADO Dulce [id number] -1975 M Exm Date: JULY 22, 2023@12:00 Req Phys: MARTI BUTLER Loc: CWM/SO/PACT 3 WH (Req'g Loc) Img Loc: OUTSIDE GENERAL RADIOLOGY Service: Unknown (Case [id number] COMPLETE) OUTSIDE MRI CERVICAL SPINE (RAD Detailed) CPT:75316 Reason for Study: cerv radiculopathy Clinical History: paresthesias both hands radial distribution Report Status: Electronically Filed Date Reported: JULY 22, 2023 Report: Community care exam; see CPRS/JLV for outside radiology report/results Impression: Community care exam; see CPRS/JLV for outside radiology report/results Primary Diagnostic Code: VERIFIED BY: / *ELECTRONICALLY FILED* [facility] Encounter Notes: All associated encounter notes This section contains the clinical notes associated to the Encounter. Date/Time Encounter Note(s) Provider Source Aug 13, 2023 09:51 AM TELEPHONE ENCOUNTE R NOTE: LOCAL TITLE: TELEPHONE NOTE/SPECIALTY CLINIC STANDARD TITLE: TELEPHONE ENCOUNTER NOTE DATE OF NOTE: AUG 13, 2023@09:51 ENTRY DATE: AUG 13, 2023@09:52 AUTHOR: KATELYNN LEE EXP COSIGNER: URGENCY: STATUS: COMPLETED [place] contacted this date - appt. VVC cancelled - provider out of office. Rescheduled for TBI VVC on September 11, 2023 @ 0830 hours - is agreeable and cooperative. Letter mailed as reminder. ty /cherri/ Katelynn Lee LPN LPN Signed: 08/13/2023 10:24 Receipt Acknowledged By: 08/17/2023 08:54 /cherri/ NITZA RIVAS [facility] STAFF CHILD DEVELOPMENT ASSISTANT KATELYNN LEE [facility]
--- OUTSIDE RECORDS SUMMARY | 2024-02-16 07:36 | XMS_ITS ---
Author Name Department of [place] Organization Department of [place] Address [address] [place] [id number] Support Name Relationship Address Phone BRYANT SRIRAM Next of Kin [address] [place] [address] HURTADO, SRIRAM Emergency Contact [address] [place] [address] Selected Encounter This section includes the information on record at [place] for the Encounter. Date/Time Encounter Type Encounter Description Reason Provider Source Aug 12, 2023 12:07 PM COMMUNITY/WORK REINTEGRATION TELEPHONE/ VOC ASSISTANCE ICD-10-CM Z56.0 Unemployment, unspecified ITALO MAGANA Judith Encounter Template Text not used by [place] Assessments - Encounter Diagnoses This section includes the primary and secondary diagnoses documented for the Encounter. Date/Time Primary/Secondary Diagnosis Diagnosis Name Provider Source Aug 12, 2023 12:07 PM PRIMARY Unemployment, sorayaified JULIO MAGANA [facility] Plan of Treatment: Future Appointments (+ 6 months) and Future Tests (+/- 45 days) The Plan of Treatment section includes future care activities for the patient from all [place] treatmentfacilities. This section includes future appointments and future orders which are active, pending or scheduled. Future Appointments This section includes appointments that were scheduled to occur 6 months from the date of the Encounter, up to a maximum of 20 appointments. The data comes from all [place] treatment facilities. Appointment Date/Time Appointment Type Appointme nt Facility Name Sep 11, 2023 08:30 AM AMBULATORY [facility] Sep 21, 2023 11:00 AM [facility] Sep 23, 2023 04:00 PM AMBULATORY - REHAB MEDICIN E [facility] [place] [facility] Sep 24, 2023 02:00 PM AMBULATORY - PSYCHIATRY [facility] [place] [facility] Sep 25, 2023 08:15 AM AMBULATORY - MEDICINE [facility] [place] [facility] Sep 28, 2023 11:00 AM AMBULATORY - MEDICINE [facility] [place] [facility] Oct 01, 2023 03:30 PM AMBULATORY - REHAB MEDICIN E [facility] [place] [facility] Oct 05, 2023 11:00 AM AMBULATORY - MEDICINE [facility] [place] [facility] Oct 06, 2023 04:30 PM AMBULATORY - REHAB MEDICIN E [facility] [place] [facility] Oct 13, 2023 04:30 PM AMBULATORY - REHAB MEDICIN E [facility] [place] [facility] Oct 15, 2023 01:30 PM AMBULATORY - REHAB MEDICIN E [facility] [place] [facility] Oct 26, 2023 11:00 AM AMBULATORY - MEDICINE [facility] [place] [facility] Oct 26, 2023 03:30 PM AMBULATORY - MEDICINE [facility] [place] [facility] Oct 27, 2023 04:30 PM AMBULATORY - REHAB MEDICIN E [facility] [place] [facility] Nov 05, 2023 03:00 PM AMBULATORY - REHAB MEDICIN E [facility] [place] [facility] Nov 19, 2023 04:30 PM AMBULATORY - REHAB MEDICIN E [facility] [place] [facility] Nov 25, 2023 02:30 PM AMBULATORY - REHAB MEDICIN E [facility] [place] [facility] Dec 07, 2023 10:30 AM AMBULATORY - PSYCHIATRY [facility] [place] [facility] Dec 08, 2023 08:30 AM AMBULATORY - REHAB MEDICIN E [facility] [place] [facility] Dec 09, 2023 04:30 PM AMBULATORY - REHAB MEDICIN E [facility] [place] [facility] Active, Pending, and Scheduled Orders This section includes a listing of several types of active, pending, and scheduled orders, including clinic medications orders, diagnostic test orders, procedure orders and consult orders; where the start date of the order is 45 days before the date of the Encounter or 45 days after the date of theEncounter. The data comes from all [facility]. Test Date/Time Test Type Test Details Facility Name Aug 30, 2023 12:00 AM Laboratory - Chemi stry Order CALCIUM BLOOD (SST-SERUM) [facility] Aug 30, 2023 12:00 AM Laboratory - Chemi stry Order URIC ACID BLOOD (SST-SERUM) [facility] Aug 30, 2023 12:00 AM Laboratory - Chemi stry Order PSA BLOOD (SST-SERUM) [facility] Aug 30, 2023 12:00 AM Laboratory - Chemi stry Order VITAMIN D (25-OH) BLOOD (SST-SERUM) [facility] Aug 30, 2023 12:00 AM Laboratory - Chemi stry Order FERRITIN BLOOD (SST-SERUM) [facility] Aug 30, 2023 12:00 AM Laboratory - Chemi stry Order VITAMIN B12 BLOOD (SST-SERUM) [facility] Aug 30, 2023 12:00 AM Laboratory - Chemi stry Order BASIC METABOLIC PANEL (fasting) BLOOD (SST-SERUM) [facility] Aug 30, 2023 12:00 AM Laboratory - Chemi stry Order LIPID PANEL FASTING BLOOD (SST-SERUM) [facility] Aug 30, 2023 12:00 AM Laboratory - Chemi stry Order LIVER FUNCTION BLOOD (SST-SERUM) [facility] Aug 30, 2023 12:00 AM Laboratory - Chemi stry Order CBC AND DIFF (AUTO) BLOOD (LAV-BLOOD) [facility] Aug 30, 2023 12:00 AM Laboratory - Chemi stry Order HEMOGLOBIN A1C PANEL BLOOD (LAV-BLOOD) [facility] Aug 30, 2023 12:00 AM Laboratory - Chemi stry Order TSH BLOOD (SST-SERUM) [facility] Radiology Reports: +/- 30 days of the [...] the Encounter. The data comes from all [place] treatment facilities. Date/Time Radiology Report Provider Source July 22, 2023 12:00 PM OUTSIDE MRI CERVIC AL SPINE: MACK HURTADO [id number] -1975 M Exm Date: JULY 22, 2023@12:00 Req Phys: MARTI BUTLER Loc: CWM/SO/PACT 3 WH (Req'g Loc) Img Loc: OUTSIDE GENERAL RADIOLOGY Service: Unknown (Case [id number] COMPLETE) OUTSIDE MRI CERVICAL SPINE (RAD Detailed) CPT:67649 Reason for Study: cerv radiculopathy Clinical History: paresthesias both hands radial distribution Report Status: Electronically Filed Date Reported: JULY 22, 2023 Report: Community care exam; see CPRS/JLV for outside radiology report/results Impression: Community care exam; see CPRS/JLV for outside radiology report/results Primary Diagnostic Code: VERIFIED BY: / *ELECTRONICALLY FILED* [place] [facility] [place] [facility] Encounter Notes: All associated encounter notes This section contains the clinical notes associated to the Encounter. 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 [place] stated they have been in contact with [employer] out of [place] and looking to hopefully have an interview soon. [place] also stated they are attending school to achieve their BA and currently has GI bill covering costs. 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 Next Steps: [place] will follow up with MARCELO /cherri/ JULIO LOCK MULTIMEDIA TECHNICIAN Signed: 08/12/2023 12:11 JULIO MAGANA [facility]
--- OUTSIDE RECORDS SUMMARY | 2024-02-16 07:37 | XMS_ITS | Encounter Summary ---
Author Name [facility] [place] [facility] [place] [facility] [place] Address [address] [place] [id number] Support Name Relationship Address Phone HURTADOSRIRAM MAZARIEGOS Next of Kin [address] [place] [address] QING HURTADOHER Emergency Contact [address] [place] [address] Selected Encounter This section includes the information on record at [place] for the Encounter. Date/Time Encounter Type Encounter Description Reason Provider Source Sep 21, 2023 11:00 AM BIOFEEDBACK TRAIN ANY [facility] TREATMENT ICD-10-CM F33.1 Major depressive disorder, recurrent, moderate LAUDERMITH,AR ZEKE CARRANZA Judith Encounter Template Text not used by [place] Assessments - Encounter Diagnoses This section includes the primary and secondary diagnoses documented for the Encounter. Date/Time Primary/Secondary Diagnosis Diagnosis Name Provider Source Sep 21, 2023 03:34 PM PRIMARY Major depressive disorder, recurrent, moderate LAUDERMITH,RAQUEL CARRANZA SHILPA Plan of Treatment: Future Appointments (+ 6 months) and Future Tests (+/- 45 days) The Plan of Treatment section includes future care activities for the patient from all [place] treatmentfacilities. This section includes future appointments and future orders which are active, pending or scheduled. Future Appointments This section includes appointments that were scheduled to occur 6 months from the date of the Encounter, up to a maximum of 20 appointments. The data comes from all [place] treatment facilities. Appointment Date/Time Appointment Type Appointme nt Facility Name Sep 23, 2023 04:00 PM AMBULATORY - REHAB MEDICIN E [facility] Sep 24, 2023 02:00 PM AMBULATORY - PSYCHIATRY [facility] Sep 25, 2023 08:15 AM [facility] [place] Sep 28, 2023 11:00 AM AM[facility]ULATORY [facility] [place] [facility] Oct 01, 2023 03:30 PM AMBULATORY - REHAB MEDICIN [facility] [place] Oct 05, 2023 11:00 AM AMBULATORY [facility]IC[facility] [place] [facility] Oct 06, 2023 04:30 PM AMBULATORY - REHAB MEDICIN [facility] [place] Oct 13, 2023 04:30 PM AMBULATORY - REHAB MEDICIN [facility] [place] [facility] Oct 15, 2023 01:30 PM AMBULATORY - REHAB MEDICIN [facility] [place] [facility] Oct 26, 2023 11:00 AM AMBULATORY [facility]IC[facility] [place] [facility] Oct 26, 2023 03:30 PM AM[facility]ULATORY [facility] [place] [facility] Oct 27, 2023 04:30 PM AMBULATORY - REHAB MEDICIN [facility] [place] [facility] Nov 05, 2023 03:00 PM AMBULATORY - REHAB MEDICIN [facility] [place] [facility] Nov 19, 2023 04:30 PM AMBULATORY - REHAB MEDICIN [facility] [place] [facility] Nov 25, 2023 02:30 PM AMBULATORY - REHAB MEDICIN [facility] [place] [facility] Dec 07, 2023 10:30 AM AMBULATORY - PS[facility]CHIATRY [facility] [place] [facility] Dec 08, 2023 08:30 AM AMBULATORY - REHAB MEDICIN [facility] [place] [facility] Dec 09, 2023 04:30 PM AMBULATORY - REHAB MEDICIN [facility] [place] [facility] Dec 31, 2023 10:30 AM AMBULATORY - REHAB MEDICIN [facility] [place] [facility] Jan 15, 2024 03:00 PM [facility] Active, Pending, and Scheduled Orders This section includes a listing of several types of active, pending, and scheduled orders, including clinic medications orders, diagnostic test orders, procedure orders and consult orders; where the start date of the order is 45 days before the date of the Encounter or 45 days after the date of theEncounter. The data comes from all [place] treatment facilities. Test Date/Time Test Type Test Details Facility Name Aug 30, 2023 12:00 AM Laboratory - Chemi stry Order CALCIUM BLOOD (SST-SERUM) [facility] Aug 30, 2023 12:00 AM Laboratory - Chemi stry Order URIC ACID BLOOD (SST-SERUM) [facility] Aug 30, 2023 12:00 AM Laboratory - Chemi stry Order PSA BLOOD (SST-SERUM) [facility] Aug 30, 2023 12:00 AM Laboratory - Chemi stry Order FERRITIN BLOOD (SST-SERUM) [facility] Aug 30, 2023 12:00 AM Laboratory - Chemi stry Order VITAMIN D (25-[place]) BLOOD (SST-SERUM) [facility] Aug 30, 2023 12:00 AM Laboratory - Chemi stry Order VITAMIN B12 BLOOD (SST-SERUM) [facility] Aug 30, 2023 12:00 AM Laboratory - Chemi stry Order BASIC METABOLIC PANEL (fasting) BLOOD (SST-SERUM) [facility] Aug 30, 2023 12:00 AM Laboratory - Chemi stry Order LIPID PANEL FASTING BLOOD (SST-SERUM) [facility] Aug 30, 2023 12:00 AM Laboratory - Chemi stry Order LIVER FUNCTION BLOOD (SST-SERUM) [facility] Aug 30, 2023 12:00 AM Laboratory - Chemi stry Order CBC AND DIFF (AUTO) BLOOD (LAV-BLOOD) [facility] Aug 30, 2023 12:00 AM Laboratory - Chemi stry Order HEMOGLOBIN A1C PANEL BLOOD (LAV-BLOOD) [facility] Aug 30, 2023 12:00 AM Laboratory - Chemi stry Order TSH BLOOD (SST-SERUM) [facility] Social History: Smoking Status (Most current) and Tobacco Use (All prior to encounter date) This section includes the most current, and the historical, smoking and tobacco- related health factors from the [place] facility where the Encounter took place. Current Smoking Status This section includes the most current smoking, or tobacco-related health factor, from the [place] facility where the Encounter took place. Date/Time Current Smoking Status Comment Facil ity July 16, 2023 08:30 AM [place]-TOBACCO NEVER USED [facility] Encounter Notes: All associated encounter notes This section contains the clinical notes associated to the Encounter. Date/Time Encounter Note(s) Provider Source Sep 24, 2023 07:21 AM CONSULT: LOCAL TITLE: CONSULT/BIOFEEDBACK STANDARD TITLE: CONSULT DATE OF NOTE: SEP 24, 2023@07:21:01 ENTRY DATE: SEP 24, 2023@07:21:01 AUTHOR: DANNIE HUMPHREYS COSIGNER: URGENCY: STATUS: COMPLETED Assessments were sent to the [facility] via text/email. These assessments were completed by MACK HURTADO on their own device on 09/21/2023 11:12:35 AM. GENERAL ANXIETY DISORDER-7 (MAHIN-7) Patient reported being bothered by the following over the last two weeks: 1. Feeling nervous, anxious or on edge: Several days 2. Not being able to stop or control worrying: Nearly every day 3. Worrying too much about different things: Nearly every day 4. Trouble relaxing: Several days 5. Feeling restless (hard to sit still): Several days 6. Becoming easily annoyed or irritable: Several days 7. Afraid as if something awful might happen: Several days MAHIN-7 total score = 11 0-4=minimal symptoms 5-9=mild symptoms 10-14=moderate symptoms 15-21=severe symptoms The patient stated that the anxiety symptoms made it somewhat difficult to work, take care of things at home, or get along with others. MAHIN-7 Total Score (past 180 days): 09/21/2023 11 07/18/2023 16 PERCEIVED STRESS SCALE (PSS) The patient reported the following feelings and thoughts during the last month: 1. Upset because of something that happened unexpectedly: Fairly often 2. Unable to control the important things in life: Fairly often 3. Nervous and stressed : Very often 4. Confident about ability to handle personal problems: Sometimes 5. Xenia that things were going your way: Sometimes 6. Could not cope with all the things you had to do: Sometimes 7. Able to control irritations in life: Sometimes 8. On top of things: Sometimes 9. Angered by things outside your control: Sometimes 10. Difficulties piling up so high that could not overcome them: Almost never PSS Total Score: 23 PSS scores range from 0-40. A higher score indicates more stress. DIFFICULTIES IN EMOTION REGULATION SCALE-36 (DERS-36) The patient reported that the following statements apply to them as indicated: 1. I am clear about my feelings: Sometimes (11-35%) 2. I pay attention to how I feel: Almost never (0-10%) 3. I experience my emotions as overwhelming and out of control: Almost never (0-10%) 4. I have no idea how I am feeling: Sometimes (11-35%) 5. I have difficulty making sense out of my feelings: Most of the time (66 - 90%) 6. I am attentive to my feelings: Almost never (0-10%) 7. I know exactly how I am feeling: Almost never (0-10%) 8. I care about what I am feeling: Sometimes (11-35%) 9. I am confused about how I feel: Sometimes (11-35%) 10. When I'm upset, I acknowledge my emotions: Sometimes (11-35%) 11. When I'm upset, I become angry with myself for feeling that way: Sometimes (11-35%) 12. When I'm upset, I become embarrassed for feeling that way: Sometimes (11-35%) 13. When I'm upset, I have difficulty getting work done: About half the time (36-65%) 14. When I'm upset, I become out of control: Almost never (0-10%) 15. When I'm upset, I believe that I will remain that way for a long time: Sometimes (11-35%) 16. When I'm upset, I believe that I'll end up feeling very depressed: Sometimes (11-35%) 17. When I'm upset, I believe that my feelings are valid and important: Most of the time (66 - 90%) 18. When I'm upset, I have difficulty focusing on other things: Most of the time (66 - 90%) 19. When I'm upset, I feel out of control: Almost never (0-10%) 20. When I'm upset, I can still get things done: Most of the time (66 - 90%) 21. When I'm upset, I feel ashamed with myself for feeling that way: Almost never (0-10%) 22. When I'm upset, I know that I can find a way to eventually feel better: Most of the time (66 - 90%) 23. When I'm upset, I feel like I am weak: Sometimes (11-35%) 24. When I'm upset, I feel like I can remain in control of my behaviors: Almost always (91-100%) 25. When I'm upset, I feel guilty for feeling that way: Almost never (0-10%) 26. When I'm upset, I have difficulty concentrating: Most of the time (66 - 90%) 27. When I'm upset, I have difficulty controlling my behaviors: Almost never (0-10%) 28. When I'm upset, I believe there is nothing I can do to make myself feel better: Almost never (0-10%) 29. When I'm upset, I become irritated with myself for feeling that way: Sometimes (11-35%) 30. When I'm upset, I start to feel very bad about myself: Sometimes (11-35%) 31. When I'm upset, I believe that wallowing in it is all I can do: Almost never (0-10%) 32. When I'm upset, I lose control over my behaviors: Sometimes (11-35%) 33. When I'm upset, I have difficulty thinking about anything else: Sometimes (11-35%) 34. When I'm upset, I take time to figure out what I'm really feeling: Almost never (0-10%) 35. When I'm upset, it takes me a long time to feel better: Sometimes (11-35%) 36. When I'm upset, my emotions feel overwhelming: Sometimes (11-35%) Total Score (range: 36-180): 88 Nonacceptance of emotional responses (6-30): 10 Difficulty engaging in Goal-directed behavior (5-25): 15 Impulse control difficulties (6-30): 7 Lack of emotional awareness (6-30): 25 Limited access to emotion regulation strategies (8-40): 14 Lack of emotional clarity (5-25): 17 Higher scores indicate greater problems with emotion regulation. /cherri/ Dannie Humphreys PhD Clinical Psychologist Signed: 09/24/2023 08:48 DANNIE HUMPHREYS [facility] Sep 21, 2023 03:38 PM ADDENDUM: LOCAL TITLE: Addendum STANDARD TITLE: ADDENDUM DATE OF NOTE: SEP 21, 2023@15:38:57 ENTRY DATE: SEP 21, 2023@15:38:58 AUTHOR: DANNIE HUMPHREYS EXP COSIGNER: URGENCY: STATUS: COMPLETED alerting amsa to rtc in chart for F2F /cherri/ Dannie Humphreys PhD Clinical Psychologist Signed: 09/21/2023 15:39 Receipt Acknowledged By: 09/23/2023 13:54 /cherri/ CLEVE MARY ADVANCE LANCE CREWMEMBER/MLRS SERGEANT --- Original Document --- 09/21/23 BEHAVIORAL MEDICINE - GROUP TREATMENT: Heart Math Biofeedback Group DATE: 09/21/23 LENGTH OF SESSION: 60 min NUMBER OF VETS IN GROUP: 5 CPT: 26053 MODALITY OF CARE: (x) Group visit In-person REASON FOR ENCOUNTER: [facility] attended session 1 of 5 of the biofeedback group. INFORMED CONSENT: Veterans were provided information about the purpose of psychophysiological training and that participation is voluntary. Risk and benefits and limits of confidentiality were discussed during the shared decision-making process, and [facility] voluntarily agreed to group participation. Additional overview of biofeedback purpose, procedures, and techniques was provided, and [facility] offered verbal consent. Orientation to equipment including placement of sensors was reviewed. MEDICAL NECESSITY: [facility] is actively engaged in healthcare treatment through this [place] and elects to engage in this group to support overall health improvement. understands this group is not intended to replace standard treatment practices. BIOFEEDBACK TRAINING EQUIPMENT: A portable biofeedback device and software was used to measure, analyze, and record biofeedback data from week to week. (x ) Inner Balance and HeartMath SESSION CONTENT: Session #1: The theme today is: Heart Health The purpose/agenda of the group was shared at the outset of the group. Veterans are given a chance to introduce themselves, describe their reasons for attending and what they hope to learn during this class. Empathy, validation of concerns, and supportive listening are offered. Veterans are introduced to the BFB equipment and use of technology for measurement of their psychophysiological state. Time was spent outlining course materials and the expectations for in- class and at-home practice using smart phone apps. [facility] engaged in First Guided Practice in the inner balance siobhan. Risk Assessment: No report or indication of thoughts, intent, or plan of harming self or others today. No imminent risk identified. MSE: sounded alert, oriented, and engaged. Euthymic with appropriate affect expression; Concentration appeared WNL x3, no perceptual, behavioral or thought concerns reported or observed. IMPRESSIONS: [facility] was engaged in session. engaged in breathing practice during session. PLAN: 1) will attend Session 2 next week on 09/27. 2) At Home Practice: [facility] will engage in practicing with inner balance siobhan and aim for good coherence. DX: Depression /cherri/ Dannie Humphreys, PhD Clinical Psychologist Signed: 09/21/2023 15:37 09/23/2023 ADDENDUM STATUS: COMPLETED ALL SET - THANK YOU /es/ CLEVE MARY ADVANCE LANCE CREWMEMBER/MLRS SERGEANT Signed: 09/23/2023 13:54 DONNYDANNIE Antoine [facility] Sep 21, 2023 03:28 PM GROUP COUNSELING N OTE: LOCAL TITLE: BEHAVIORAL MEDICINE - GROUP TREATMENT STANDARD TITLE: GROUP COUNSELING NOTE DATE OF NOTE: SEP 21, 2023@15:28 ENTRY DATE: SEP 21, 2023@15:28:12 AUTHOR: DANNIE HUMPHREYS EXP COSIGNER: URGENCY: STATUS: COMPLETED BEHAVIORAL MEDICINE - GROUP TREATMENT Has ADDENDA Heart Math Biofeedback Group DATE: 09/21/23 LENGTH OF SESSION: 60 min NUMBER OF VETS IN GROUP: 5 CPT: 08012 MODALITY OF CARE: (x) Group visit In-person REASON FOR ENCOUNTER: [facility] attended session 1 of 5 of the biofeedback group. INFORMED CONSENT: Veterans were provided information about the purpose of psychophysiological training and that participation is voluntary. Risk and benefits and limits of confidentiality were discussed during the shared decision-making process, and voluntarily agreed to group participation. Additional overview of biofeedback purpose, procedures, and techniques was provided, and [facility] offered verbal consent. Orientation to equipment including placement of sensors was reviewed. MEDICAL NECESSITY: is actively engaged in healthcare treatment through this [place] and elects to engage in this group to support overall health improvement. [facility] understands this group is not intended to replace standard treatment practices. BIOFEEDBACK TRAINING EQUIPMENT: A portable biofeedback device and software was used to measure, analyze, and record biofeedback data from week to week. (x ) Inner Balance and HeartMath SESSION CONTENT: Session #1: The theme today is: Heart Health The purpose/agenda of the group was shared at the outset of the group. Veterans are given a chance to introduce themselves, describe their reasons for attending and what they hope to learn during this class. Empathy, validation of concerns, and supportive listening are offered. Veterans are introduced to the BFB equipment and use of technology for measurement of their psychophysiological state. Time was spent outlining course materials and the expectations for in- class and at-home practice using smart phone apps. engaged in First Guided Practice in the inner balance siobhan. Risk Assessment: No report or indication of thoughts, intent, or plan of harming self or others today. No imminent risk identified. MSE: sounded alert, oriented, and engaged. Euthymic with appropriate affect expression; Concentration appeared WNL x3, no perceptual, behavioral or thought concerns reported or observed. IMPRESSIONS: was engaged in session. [facility] engaged in breathing practice during session. PLAN: 1) [facility] will attend Session 2 next week on 09/27. 2) At Home Practice: will engage in practicing with inner balance siobhan and aim for good coherence. DX: Depression /cherri/ Dannie Humphreys, PhD Clinical Psychologist Signed: 09/21/2023 15:37 09/21/2023 ADDENDUM STATUS: COMPLETED alerting amsa to rtc in chart for F2F /cherri/ Dannie Humphreys, PhD Clinical Psychologist Signed: 09/21/2023 15:39 Receipt Acknowledged By: 09/23/2023 13:54 /janet MARY ADVANCE LANCE CREWMEMBER/MLRS SERGEANT 09/23/2023 ADDENDUM STATUS: COMPLETED ALL SET - THANK YOU /cherri/ CLEVE MARY ADVANCE LANCE CREWMEMBER/MLRS SERGEANT Signed: 09/23/2023 13:54 DANNIE HUMPHREYS [facility]
--- OUTSIDE RECORDS SUMMARY | 2024-02-16 07:37 | XMS_ITS ---
Author Name [facility] [place] Organization [facility] [place] Address [address] [place] [id number] Support Name Relationship Address Phone BRYANT SRIRAM Next of Kin [address] [place] [address] SRIRAM HURTADO Emergency Contact [address] [place] [address] Selected Encounter This section includes the information on record at [place] for the Encounter. 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 This section includes future appointments and [...] [facility] [place] [facility] Sep 21, 2023 11:00 AM AMBULATORY - [place]ICINE [place] [facility] [place] [facility] Sep 23, 2023 04:00 PM AMBULATORY - REHAB MEDICIN [facility] [place] [facility] Sep 24, 2023 02:00 PM AMBULATORY - [place]CHIATRY [place] [facility] [place] [facility] Sep 25, 2023 08:15 AM AM[place]UL[place]ORY - [place]ICINE [place] [facility] [place] [facility] Sep 28, 2023 11:00 AM AMBULATORY [facility] MEDIC[facility] [place] [facility] Oct 01, 2023 03:30 PM AMBULATORY - REHAB MEDICIN [facility] [place] [facility] Oct 05, 2023 11:00 AM AMBULATORY [facility] MEDICINE [facility] [place] [facility] Oct 06, 2023 04:30 PM AMBULATORY - REHAB MEDICIN [facility] [place] [facility] Oct 13, 2023 04:30 PM AMBULATORY - REHAB MEDICIN [facility] [place] [facility] Oct 15, 2023 01:30 PM AMBULATORY - REHAB MEDICIN [facility] [place] [facility] Oct 26, 2023 11:00 AM AMBULATORY [facility] MEDIC[facility] [place] [facility] Oct 26, 2023 03:30 PM AMBULATORY - MEDICINE [facility] [place] [facility] Oct 27, 2023 04:30 PM AMBULATORY - REHAB MEDICIN [facility] [place] [facility] Nov 05, 2023 03:00 PM AMBULATORY - REHAB MEDICIN [facility] [place] [facility] Nov 19, 2023 04:30 PM AMBULATORY - REHAB MEDICIN [facility] [place] [facility] Nov 25, 2023 02:30 PM AMBULATORY - REHAB MEDICIN [facility] [place] [facility] Dec 07, 2023 10:30 AM AMBULATORY - PSYCHIATRY [facility] [place] [facility] Dec 08, 2023 08:30 AM AMBULATORY - REHAB MEDICIN [facility] [place] [facility] Dec 09, 2023 04:30 PM AMBULATORY - REHAB MEDICIN [facility] [place] Active, Pending, and Scheduled Orders This section includes a listing of several types of active, pending, and scheduled orders, including clinic medications orders, diagnostic test orders, procedure orders and consult orders; where the start date of the order is 45 days before the date of the Encounter or 45 days after the date of theEncounter. The data comes from all [place] treatment facilities. Test Date/Time Test Type Test Details Facility Name Aug 30, 2023 12:00 AM Laboratory - Chemi stry Order CALCIUM BLOOD (SST-SERUM) [facility] Aug 30, 2023 12:00 AM Laboratory - Chemi stry Order URIC ACID BLOOD (SST-SERUM) [facility] Aug 30, 2023 12:00 AM Laboratory - Chemi stry Order PSA BLOOD (SST-SERUM) [facility] Aug 30, 2023 12:00 AM Laboratory - Chemi stry Order FERRITIN BLOOD (SST-SERUM) [facility] Aug 30, 2023 12:00 AM Laboratory - Chemi stry Order VITAMIN D (25-[place]) BLOOD (SST-SERUM) [facility] Aug 30, 2023 12:00 AM Laboratory - Chemi stry Order VITAMIN B12 BLOOD (SST-SERUM) [facility] Aug 30, 2023 12:00 AM Laboratory - Chemi stry Order BASIC METABOLIC PANEL (fasting) BLOOD (SST-SERUM) [facility] Aug 30, 2023 12:00 AM Laboratory - Chemi stry Order LIPID PANEL FASTING BLOOD (SST-SERUM) [facility] Aug 30, 2023 12:00 AM Laboratory - Chemi stry Order LIVER FUNCTION BLOOD (SST-SERUM) [facility] Aug 30, 2023 12:00 AM Laboratory - Chemi stry Order CBC AND DIFF (AUTO) BLOOD (LAV-BLOOD) [facility] Aug 30, 2023 12:00 AM Laboratory - Chemi stry Order HEMOGLOBIN A1C PANEL BLOOD (LAV-BLOOD) [facility] Aug 30, 2023 12:00 AM Laboratory - Chemi stry Order TSH BLOOD (SST-SERUM) [facility] Encounter Notes: All associated encounter notes This section contains the clinical notes associated to the Encounter. Date/Time Encounter Note(s) Provider Source Sep 07, 2023 01:55 PM ADMINISTRATIVE NOTE: LOCAL TITLE: ADMINISTRATIVE NOTE STANDARD TITLE: ADMINISTRATIVE NOTE DATE OF NOTE: SEP 07, 2023@13:55 ENTRY DATE: SEP 07, 2023@13:55:19 AUTHOR: JANETTE CHAUDHRY COSIGNER: URGENCY: STATUS: COMPLETED PER TEAMS MESSAGE 08/31/2023, VET REQ CC CLOSER TO HOME. RTC DISPOSITIONED PID 08/13/2023 /cherri/ JANETTE CHAUDHRY ADVANCED SCRAPPER Signed: 09/07/2023 13:56 Receipt Acknowledged By: 09/09/2023 11:43 /cherri/ JESUS DENT D.C. CHIROPRACTOR JANETTE CHAUDHRY [place] [facility]
--- OUTSIDE RECORDS SUMMARY | 2024-02-16 07:37 | XMS_ITS | Encounter Summary ---
Author Name [facility] Organization [facility] [place] Address [address] [place] [id number] Support Name Relationship Address Phone BRYANT SRIRAM Next of Kin [address] [place] [address] SRIRAM HURTADO Emergency Contact [address] [place] [address] Selected Encounter This section includes the information on record at [place] for the Encounter. Date/Time Encounter Type Encounter Description Reason Pro vider Source Aug 20, 2023 08:20 AM Outpatient Encounter [employer] IHE Encounter Template Text not used by [place] Plan of Treatment: Future Appointments (+ 6 [...] [facility] [place] Sep 21, 2023 11:00 AM AMBULATORY - MEDICINE [facility] [place] [facility] Sep 23, 2023 04:00 PM AMBULATORY - [facility] [place] [facility] Sep 24, 2023 02:00 PM AMBULATORY - PSYCHIATRY [facility] [place] [facility] Sep 25, 2023 08:15 AM AMBULATORY - [facility]IC[facility] [place] [facility] Sep 28, 2023 11:00 AM AMBULATORY - MEDICINE [facility] [place] [facility] Oct 01, 2023 03:30 PM AMBULATORY - [facility]IC[facility] [place] [facility] Oct 05, 2023 11:00 AM AMBULATORY - MEDICINE [facility] [place] [facility] Oct 06, 2023 04:30 PM AMBULATORY - [facility] MEDICIN [facility] [place] [facility] Oct 13, 2023 04:30 PM AMBULATORY - [facility]AB MEDICIN [facility] [place] [facility] Oct 15, 2023 01:30 PM AMBULATORY - REHAB MEDICIN [facility] [place] [facility] Oct 26, 2023 11:00 AM AMBULATORY - MEDICINE [facility] [place] [facility] Oct 26, 2023 03:30 PM AMBULATORY - MEDICINE [facility] [place] [facility] Oct 27, 2023 04:30 PM AMBULATORY - RE[facility]AB MEDICIN [facility] [place] [facility] Nov 05, 2023 03:00 PM AMBULATORY - [facility] MEDICIN [facility] [place] [facility] Nov 19, 2023 04:30 PM AMBULATORY - REHAB MEDICIN [facility] [place] [facility] Nov 25, 2023 02:30 PM AMBULATORY - [facility] MEDICIN [facility] [place] [facility] Dec 07, 2023 10:30 AM AMBULATORY - PSYCHIATRY [facility] [place] [facility] Dec 08, 2023 08:30 AM AMBULATORY - REHAB MEDICIN [facility] [place] [facility] Dec 09, 2023 04:30 PM AMBULATORY - [facility]AB MEDICIN [facility] [place] [facility] Active, Pending, and Scheduled Orders This section includes a listing of several types of active, pending, and scheduled orders, including clinic medications orders, diagnostic test orders, procedure orders and consult orders; where the start date of the order is 45 days before the date of the Encounter or 45 days after the date of theEncounter. The data comes from all [place] treatment facilities. Test Date/Time Test Type Test Details Facility Name Aug 30, 2023 12:00 AM Laboratory - Chemi stry Order CALCIUM BLOOD (SST-SERUM) [facility] Aug 30, 2023 12:00 AM Laboratory - Chemi stry Order URIC ACID BLOOD (SST-SERUM) [facility] Aug 30, 2023 12:00 AM Laboratory - Chemi stry Order PSA BLOOD (SST-SERUM) [facility] Aug 30, 2023 12:00 AM Laboratory - Chemi stry Order FERRITIN BLOOD (SST-SERUM) [facility] Aug 30, 2023 12:00 AM Laboratory - Chemi stry Order VITAMIN D (25-OH) BLOOD (SST-SERUM) [facility] Aug 30, 2023 12:00 AM Laboratory - Chemi stry Order VITAMIN B12 BLOOD (SST-SERUM) [facility] Aug 30, 2023 12:00 AM Laboratory - Chemi stry Order BASIC METABOLIC PANEL (fasting) BLOOD (SST-SERUM) [facility] Aug 30, 2023 12:00 AM Laboratory - Chemi stry Order LIPID PANEL FASTING BLOOD (SST-SERUM) [facility] Aug 30, 2023 12:00 AM Laboratory - Chemi stry Order LIVER FUNCTION BLOOD (SST-SERUM) [facility] Aug 30, 2023 12:00 AM Laboratory - Chemi stry Order CBC AND DIFF (AUTO) BLOOD (LAV-BLOOD) [facility] Aug 30, 2023 12:00 AM Laboratory - Chemi stry Order HEMOGLOBIN A1C PANEL BLOOD (LAV-BLOOD) [facility] Aug 30, 2023 12:00 AM Laboratory - Chemi stry Order TSH BLOOD (SST-SERUM) [facility] Radiology Reports: +/- 30 days [...] the Encounter. The data comes from all [place] treatment facilities. Date/Time Radiology Report Provider Source July 22, 2023 12:00 PM OUTSIDE MRI CERVIC AL SPINE: MACK HURTADO Dulce [id number] -[id number] M Exm Date: JULY 22, 2023@12:00 Req Phys: MARTI BUTLER Loc: [facility]/SO/PACT 3 WH (Req'g Loc) Img Loc: OUTSIDE GENERAL RADIOLOGY Service: Unknown (Case [id number] COMPLETE) OUTSIDE MRI CERVICAL SPINE (RAD Detailed) CPT:62450 Reason for Study: cerv radiculopathy Clinical History: paresthesias both hands radial distribution Report Status: Electronically Filed Date Reported: JULY 22, 2023 Report: Community care exam; see CPRS/JLV for outside radiology report/results Impression: Community care exam; see CPRS/JLV for outside radiology report/results Primary Diagnostic Code: VERIFIED BY: / *ELECTRONICALLY FILED* [facility] Encounter Notes: All associated encounter notes This section contains the clinical notes associated to the Encounter. Date/Time Encounter Note(s) Provider Source Aug 20, 2023 08:20 AM ADMINISTRATIVE NOTE: LOCAL TITLE: ADMINISTRATIVE NOTE STANDARD TITLE: ADMINISTRATIVE NOTE DATE OF NOTE: AUG 20, 2023@08:20 ENTRY DATE: AUG 20, 2023@08:20:24 AUTHOR: JANETTE CHAUDHRY COSIGNER: URGENCY: STATUS: COMPLETED Per mine administrator supervisor's message, this is considered a low risk clinic. Per scheduling directive for low risk clinics contact attempts are not needed. RTC PID 07/30/2023 has been dispositioned. Future Chiro appt already scheduled. /cherri/ JANETTE CHAUDHRY ADVANCED PODODERMATOLOGIST Signed: 08/20/2023 08:20 JANETTE CHAUDHRY [facility]
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
--- OUTSIDE RECORDS SUMMARY | 2024-02-16 07:37 | XMS_ITS ---
Author Name [facility] [place] Organization [facility] [place] Address [address] [place] [id number] Support Name Relationship Address Phone BRYANT SRRIAM Next of Kin [address] [place] [address] SRIRAM HURTADO Emergency Contact [address] [place] [address] Selected Encounter This section includes the information on record at [place] for the Encounter. 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 Template Text not used by [...] [facility] Sep 21, 2023 11:00 AM AMBULATORY [place]ICINE [place] [facility] Sep 23, 2023 04:00 PM AMBULATORY - REHAB MEDICIN [facility] Sep 24, 2023 02:00 PM AMBULATORY - PSYCHIATRY [place] [facility] Sep 25, 2023 08:15 AM AMBULATORY - MEDICINE [place] [facility] Sep 28, 2023 11:00 AM AMBULATORY - MEDICINE [facility] [place] [facility] Oct 01, 2023 03:30 PM AMBULATORY - REHAB MEDICIN E [facility] [place] Oct 05, 2023 11:00 AM AMBULATORY - MEDICINE [facility] Oct 06, 2023 04:30 PM AMBULATORY - REHAB MEDICIN E [facility] Oct 13, 2023 04:30 PM AMBULATORY - REHAB MEDICIN E [facility] Oct 15, 2023 01:30 PM AMBULATORY - REHAB MEDICIN E [facility] Oct 26, 2023 11:00 AM AMBULATORY - MEDICINE [facility] [place] Oct 26, 2023 03:30 PM AMBULATORY - MEDICINE [facility] Oct 27, 2023 04:30 PM AMBULATORY - REHAB MEDICIN E [facility] [place] Nov 05, 2023 03:00 PM AMBULATORY - REHAB MEDICIN E [facility] Nov 19, 2023 04:30 PM AMBULATORY - REHAB MEDICIN E [facility] Nov 25, 2023 02:30 PM AMBULATORY - REHAB MEDICIN E [facility] [place] [facility] Dec 07, 2023 10:30 AM AMBULATORY - PSYCHIATRY [facility] [place] Dec 08, 2023 08:30 AM AMBULATORY - REHAB MEDICIN E [facility] Dec 09, 2023 04:30 PM AMBULATORY - REHAB MEDICIN E [facility] Active, Pending, and Scheduled Orders This section includes a listing of several types of active, pending, and scheduled orders, including clinic medications orders, diagnostic test orders, procedure orders and consult orders; where the start date of the order is 45 days before the date of the Encounter or 45 days after the date of theEncounter. The data comes from all [place] treatment facilities. Test Date/Time Test Type Test Details Facility Name Aug 30, 2023 12:00 AM Laboratory - Chemi stry Order CALCIUM BLOOD (SST-SERUM) [facility] Aug 30, 2023 12:00 AM Laboratory - Chemi stry Order URIC ACID BLOOD (SST-SERUM) [facility] Aug 30, 2023 12:00 AM Laboratory - Chemi stry Order PSA BLOOD (SST-SERUM) [facility] Aug 30, 2023 12:00 AM Laboratory - Chemi stry Order FERRITIN BLOOD (SST-SERUM) [facility] Aug 30, 2023 12:00 AM Laboratory - Chemi stry Order VITAMIN D (25-OH) BLOOD (SST-SERUM) [facility] Aug 30, 2023 12:00 AM Laboratory - Chemi stry Order BASIC METABOLIC PANEL (fasting) BLOOD (SST-SERUM) [facility] Aug 30, 2023 12:00 AM Laboratory - Chemi stry Order VITAMIN B12 BLOOD (SST-SERUM) [facility] Aug 30, 2023 12:00 AM Laboratory - Chemi stry Order LIPID PANEL FASTING BLOOD (SST-SERUM) [facility] Aug 30, 2023 12:00 AM Laboratory - Chemi stry Order LIVER FUNCTION BLOOD (SST-SERUM) [facility] Aug 30, 2023 12:00 AM Laboratory - Chemi stry Order CBC AND DIFF (AUTO) BLOOD (LAV-BLOOD) [facility] Aug 30, 2023 12:00 AM Laboratory - Chemi stry Order HEMOGLOBIN A1C PANEL BLOOD (LAV-BLOOD) [facility] Aug 30, 2023 12:00 AM Laboratory - Chemi stry Order TSH BLOOD (SST-SERUM) [facility] Encounter Notes: All associated encounter notes This section contains the clinical notes associated to the Encounter. Date/Time Encounter Note(s) Provider Source Aug 26, 2023 09:56 AM ADMINISTRATIVE NOT E: LOCAL TITLE: ADMINISTRATIVE NOTE STANDARD TITLE: ADMINISTRATIVE NOTE DATE OF NOTE: AUG 26, 2023@09:56 ENTRY DATE: AUG 26, 2023@09:56:26 AUTHOR: SILVA TORRES EXP COSIGNER: URGENCY: STATUS: COMPLETED Dispositioned RTC PID 08/06/2023, per scheduling directive for low risk clinics contact attempts are not needed. /cherri/ SILVA TORRES ADVANCED BRASS BURNISHER Signed: 08/26/2023 09:57 SILVA TORRES [facility]
--- OUTSIDE RECORDS SUMMARY | 2024-02-16 07:37 | XMS_ITS | Encounter Summary ---
Author Name [facility] [place] [facility] [place] Organization [facility] [place] Address [address] [place] [id number] Support Name Relationship Address Phone DIANEQING MAZARIEOGSHER Next of Kin [address] [place] [address] DIANEQING MAZARIEGOSHER Emergency Contact [address] [place] [address] Selected Encounter This section includes the information on record at [place] for the Encounter. Date/Time Encounter Type Encounter Description Reason Pro vider Source Sep 11, 2023 10:56 AM Outpatient Encounter PRIMARY CARE/MEDICINE IHE Encounter Template Text not used by [place] Plan of Treatment: Future Appointments (+ 6 months) and Future Tests (+/- 45 days) The Plan of Treatment section includes future care activities for the patient from all [place] treatmentfacilities. This section includes future appointments and future orders which are active, pending or scheduled. Future Appointments This section includes appointments that were scheduled to occur 6 months from the date of the Encounter, up to a maximum of 20 appointments. The data comes from all [place] treatment facilities. Appointment Date/Time Appointment Type Appointme nt Facility Name Sep 21, 2023 11:00 AM AMBULATORY [place]ICINE [place] [facility] [place] [facility] Sep 23, 2023 04:00 PM AMBULATORY - REHAB MEDICIN E [facility] [place] [facility] Sep 24, 2023 02:00 PM AMBULATORY - PSYCHIATRY [place] [facility] [place] [facility] Sep 25, 2023 08:15 AM AMBULATORY - MEDICINE [place] [facility] [place] [facility] Sep 28, 2023 11:00 AM AMBULATORY - MEDICINE [place] [facility] [place] [facility] Oct 01, 2023 03:30 PM AMBULATORY - REHAB MEDICIN E [facility] [place] [facility] Oct 05, 2023 11:00 AM AMBULATORY - MEDICINE [facility] [place] [facility] Oct 06, 2023 04:30 PM AMBULATORY - REHAB MEDICIN E [facility] [place] [facility] Oct 13, 2023 04:30 PM AMBULATORY - REHAB MEDICIN E [facility] [place] [facility] Oct 15, 2023 01:30 PM AMBULATORY - REHAB MEDICIN E [facility] [place] [facility] Oct 26, 2023 11:00 AM AMBULATORY - MEDICINE [facility] [place] [facility] Oct 26, 2023 03:30 PM AMBULATORY - MEDICINE [facility] [place] [facility] Oct 27, 2023 04:30 PM AMBULATORY - REHAB MEDICIN E [facility] [place] [facility] Nov 05, 2023 03:00 PM AMBULATORY - REHAB MEDICIN E [facility] [place] [facility] Nov 19, 2023 04:30 PM AMBULATORY - REHAB MEDICIN E [facility] [place] [facility] Nov 25, 2023 02:30 PM AMBULATORY - REHAB MEDICIN E [facility] [place] [facility] Dec 07, 2023 10:30 AM AMBULATORY - PSYCHIATRY [facility] [place] [facility] Dec 08, 2023 08:30 AM AMBULATORY - REHAB MEDICIN E [facility] [place] [facility] Dec 09, 2023 04:30 PM AMBULATORY - REHAB MEDICIN E [facility] [place] [facility] Dec 31, 2023 10:30 AM AMBULATORY - REHAB MEDICIN E [facility] [place] [facility] Active, Pending, and Scheduled Orders This section includes a listing of several types of active, pending, and scheduled orders, including clinic medications orders, diagnostic test orders, procedure orders and consult orders; where the start date of the order is 45 days before the date of the Encounter or 45 days after the date of theEncounter. The data comes from all [place] treatment facilities. Test Date/Time Test Type Test Details Facility Name Aug 30, 2023 12:00 AM Laboratory - Chemi stry Order CALCIUM BLOOD (SST-SERUM) [facility] Aug 30, 2023 12:00 AM Laboratory - Chemi stry Order URIC ACID BLOOD (SST-SERUM) [facility] Aug 30, 2023 12:00 AM Laboratory - Chemi stry Order PSA BLOOD (SST-SERUM) [facility] Aug 30, 2023 12:00 AM Laboratory - Chemi stry Order VITAMIN D (25-OH) BLOOD (SST-SERUM) [facility] Aug 30, 2023 12:00 AM Laboratory - Chemi stry Order FERRITIN BLOOD (SST-SERUM) [facility] Aug 30, 2023 12:00 AM Laboratory - Chemi stry Order VITAMIN B12 BLOOD (SST-SERUM) [facility] Aug 30, 2023 12:00 AM Laboratory - Chemi stry Order BASIC METABOLIC PANEL (fasting) BLOOD (SST-SERUM) [facility] Aug 30, 2023 12:00 AM Laboratory - Chemi stry Order LIPID PANEL FASTING BLOOD (SST-SERUM) [facility] Aug 30, 2023 12:00 AM Laboratory - Chemi stry Order LIVER FUNCTION BLOOD (SST-SERUM) [facility] Aug 30, 2023 12:00 AM Laboratory - Chemi stry Order CBC AND DIFF (AUTO) BLOOD (LAV-BLOOD) [facility] Aug 30, 2023 12:00 AM Laboratory - Chemi stry Order HEMOGLOBIN A1C PANEL BLOOD (LAV-BLOOD) [facility] Aug 30, 2023 12:00 AM Laboratory - Chemi stry Order TSH BLOOD (SST-SERUM) [facility] Encounter Notes: All associated encounter notes This section contains the clinical notes associated to the Encounter. Date/Time Encounter Note(s) Provider Source Sep 11, 2023 01:59 PM ADDENDUM: LOCAL TITLE: Addendum STANDARD TITLE: ADDENDUM DATE OF NOTE: SEP 11, 2023@13:59:56 ENTRY DATE: SEP 11, 2023@13:59:57 AUTHOR: CIERRA MALONE EXP COSIGNER: URGENCY: STATUS: COMPLETED Please advie if a F2F appointment is aniceto to evaluate these issue's. Thanks /cherri/ Cierra Malone, RN Registered Nurse (RN) Signed: 09/11/2023 14:00 Receipt Acknowledged By: 09/11/2023 14:59 /cherri/ MARTI BUTLER PA-C STAFF PHYSICIAN PAPER PATTERN INSPECTOR ========= --- Original Document --- 09/11/23 PRIMARY CARE SECURE MESSAGING: ------Original Message -------- Sent: 09/11/2023 09:46 AM ET From: MACK DIANE Z To: Robert BUTLER_PRIMARY CARE_[facility] Subject: General:Anti-inflammato ry Doc Cinda, Good Morning! I forgot to ask about an anti-inflammatory. I was taking Motrin for a long time and was switched to Mobic around and had been taking it until I got kidney stones. The Urologist suggested I switch to Diclofenac Potassium (50mg tablet twice daily) and I seemed to have good results. I take anti-inflammatories for multiple reasons (back pain, knee pain, testicular pain) and generally feel better when on them. I wanted to ask a few questions. 1. What anti-inflammatory should I take to avoid stomach and kidney issues? 2. Is Diclofenac a good anti-inflammatory? 3. Is there anything else you suggest? Also, this is somewhat related... My elbow pain is unrelenting. I was having it treated in the past (tendonitis) where they were injecting it with sugar(?) but wanted to use my blood to spin it down for something to inject? I cannot remember, but the more active I get using my elbow the more it hurts to the point I have to stop using it for anything... Is this something we can discuss on my next appointment? Thanks!! Mack Diane [phone] /es/ SIMRAN KULKARNI Advanced Flux Core Welder Signed: 09/11/2023 11:56 Receipt Acknowledged By: * AWAITING SIGNATURE * CIERRA MALONE [place] [facility] [place] [facility] Sep 11, 2023 10:56 AM PRIMARY CARE SECUR E MESSAGING: LOCAL TITLE: PRIMARY CARE SECURE MESSAGING STANDARD TITLE: PRIMARY CARE SECURE MESSAGING DATE OF NOTE: SEP 11, 2023@10:56 ENTRY DATE: SEP 11, 2023@11:56:01 AUTHOR: FIDELINA KULKARNI EXP COSIGNER: URGENCY: STATUS: COMPLETED PRIMARY CARE SECURE MESSAGING Has ADDENDA ------Original Message -------- Sent: 09/11/2023 09:46 AM ET From: MACK DIANE To: Robert BUTLER_PRIMARY CARE_[facility] Subject: General:Anti-inflammato ry Doc Cinda, Good Morning! I forgot to ask about an anti-inflammatory. I was taking Motrin for a long time and was switched to Mobic around and had been taking it until I got kidney stones. The Urologist suggested I switch to Diclofenac Potassium (50mg tablet twice daily) and I seemed to have good results. I take anti-inflammatories for multiple reasons (back pain, knee pain, testicular pain) and generally feel better when on them. I wanted to ask a few questions. 1. What anti-inflammatory should I take to avoid stomach and kidney issues? 2. Is Diclofenac a good anti-inflammatory? 3. Is there anything else you suggest? Also, this is somewhat related... My elbow pain is unrelenting. I was having it treated in the past (tendonitis) where they were injecting it with sugar(?) but wanted to use my blood to spin it down for something to inject? I cannot remember, but the more active I get using my elbow the more it hurts to the point I have to stop using it for anything... Is this something we can discuss on my next appointment? Thanks!! Mack Diane [phone] /es/ SIMRAN KULKARNI Advanced Flux Core Welder Signed: 09/11/2023 11:56 Receipt Acknowledged By: 09/11/2023 15:23 /es/ Cierra Malone RN Registered Nurse (RN) 09/11/2023 ADDENDUM STATUS: COMPLETED Please advie if a F2F appointment is aniceto to evaluate these issue's. Thanks /cherri/ Cierra Malone RN Registered Nurse (RN) Signed: 09/11/2023 14:00 Receipt Acknowledged By: 09/11/2023 14:59 /es/ MARTI BUTLER PA-C STAFF PHYSICIAN PAPER PATTERN INSPECTOR 09/11/2023 ADDENDUM STATUS: COMPLETED PCP called /es/ Cierra Malone, RN Registered Nurse (RN) Signed: 09/11/2023 15:23 FIDELINA KULKARNI [place] [facility]
--- OUTSIDE RECORDS SUMMARY | 2024-02-16 07:38 | XMS_ITS ---
Author Name [facility] [facility] [place] Organization [facility] [place] Address [address] [place] [id number] Support Name Relationship Address Phone HURTADO, SRIRAM Next of Kin [address] [place] [address] HURTADO, SRIRAM Emergency Contact [address] [place] [address] Selected Encounter This section includes the information on record at [place] for the Encounter. Date/Time Encounter Type Encounter Description Reason Provider Source Oct 06, 2023 04:30 PM THER IVNTJ EA ADDL 15 MIN POLYTRAUMA/TBI IND ICD-10-CM F90.0 Attn-defct hyperactivity disorder, predom inattentive type VALERIA DAN [facility] Encounter Template Text not used by [place] Assessments - Encounter Diagnoses This section includes the primary and secondary diagnoses documented for the Encounter. Date/Time Primary/Secondary Diagnosis Diagnosis Name Provider Source Oct 06, 2023 05:28 PM PRIMARY Attn-defct hyperactivity disorder, predom inattentive type VALERIA DAN [facility] [place] [facility] Oct 06, 2023 05:28 PM SECONDARY Cognitive communication deficit VALERIA DAN [facility] [place] [facility] Oct 06, 2023 05:28 PM SECONDARY Encounter for other specified aftercare VALERIA DAN [facility] [place] [facility] Plan of Treatment: Future Appointments [...] Date/Time Appointment Type Appointme nt Facility Name Oct 13, 2023 04:30 PM AMBULATORY - REHAB MEDICIN E [facility] [place] [facility] Oct 15, 2023 01:30 PM AMBULATORY - REHAB MEDICIN E [facility] [place] [facility] Oct 26, 2023 11:00 AM AMBULATORY - MEDICINE [facility] [place] [facility] Oct 26, 2023 03:30 PM AMBULATORY - MEDICINE [facility] [place] [facility] Oct 27, 2023 04:30 PM AMBULATORY - REHAB MEDICIN E [facility] [place] [facility] Nov 05, 2023 03:00 PM AMBULATORY - REHAB MEDICIN E [facility] [place] [facility] Nov 19, 2023 04:30 PM AMBULATORY - REHAB MEDICIN E [facility] [place] [facility] Nov 25, 2023 02:30 PM AMBULATORY - REHAB MEDICIN E [facility] [place] [facility] Dec 07, 2023 10:30 AM AMBULATORY - PSYCHIATRY [facility] [place] [facility] Dec 08, 2023 08:30 AM AMBULATORY - REHAB MEDICIN E [facility] [place] [facility] Dec 09, 2023 04:30 PM AMBULATORY - REHAB MEDICIN E [facility] [place] [facility] Dec 31, 2023 10:30 AM AMBULATORY - REHAB MEDICIN E [facility] [place] [facility] Jan 15, 2024 03:00 PM [facility] Jan 20, 2024 04:30 PM AMBULATORY - REHAB MEDICIN E [facility] [place] [facility] Jan 21, 2024 08:30 AM AMBULATORY - REHAB MEDICIN E [facility] [place] [facility] Feb 01, 2024 08:00 AM AMBULATORY - MEDICINE [facility] [place] [facility] Feb 02, 2024 04:00 PM AMBULATORY - NONE [facility] [place] [facility] Feb 04, 2024 09:30 AM AMBULATORY - PSYCHIATRY [facility] [place] [facility] Feb 09, 2024 04:30 PM AMBULATORY - REHAB MEDICIN E [facility] Mar 28, 2024 03:00 PM AMBULATORY - MEDICINE [facility] Active, Pending, and Scheduled Orders This section includes a listing of several types of active, pending, and scheduled orders, including clinic medications orders, diagnostic test orders, procedure orders and consult orders; where the start date of the order is 45 days before the date of the Encounter or 45 days after the date of theEncounter. The data comes from all [place] treatment facilities. Test Date/Time Test Type Test Details Facility Name Aug 30, 2023 12:00 AM Laboratory - Chemi stry Order CALCIUM BLOOD (SST-SERUM) [facility] Aug 30, 2023 12:00 AM Laboratory - Chemi stry Order URIC ACID BLOOD (SST-SERUM) [facility] Aug 30, 2023 12:00 AM Laboratory - Chemi stry Order PSA BLOOD (SST-SERUM) [facility] Aug 30, 2023 12:00 AM Laboratory - Chemi stry Order FERRITIN BLOOD (SST-SERUM) [facility] Aug 30, 2023 12:00 AM Laboratory - Chemi stry Order VITAMIN D (25-OH) BLOOD (SST-SERUM) [facility] Aug 30, 2023 12:00 AM Laboratory - Chemi stry Order VITAMIN B12 BLOOD (SST-SERUM) [facility] Aug 30, 2023 12:00 AM Laboratory - Chemi stry Order BASIC METABOLIC PANEL (fasting) BLOOD (SST-SERUM) [facility] Aug 30, 2023 12:00 AM Laboratory - Chemi stry Order LIPID PANEL FASTING BLOOD (SST-SERUM) [facility] Aug 30, 2023 12:00 AM Laboratory - Chemi stry Order LIVER FUNCTION BLOOD (SST-SERUM) [facility] Aug 30, 2023 12:00 AM Laboratory - Chemi stry Order CBC AND DIFF (AUTO) BLOOD (LAV-BLOOD) [facility] Aug 30, 2023 12:00 AM Laboratory - Chemi stry Order HEMOGLOBIN A1C PANEL BLOOD (LAV-BLOOD) [facility] Aug 30, 2023 12:00 AM Laboratory - Chemi stry Order TSH BLOOD (SST-SERUM) [facility] Encounter Notes: All associated encounter notes This section contains the clinical notes associated to the Encounter. Date/Time Encounter Note(s) Provider Source Oct 06, 2023 04:39 PM TELEHEALTH NOTE: LOCAL TITLE: [facility] VIDEO CONNECT TBI SPEECH STANDARD TITLE: TELEHEALTH NOTE DATE OF NOTE: OCT 06, 2023@16:39 ENTRY DATE: OCT 06, 2023@16:39:17 AUTHOR: VALERIA DAN EXP COSIGNER: URGENCY: STATUS: COMPLETED [facility] Video Connect (VVC) Standard Documentation VVC Clinician Resources Only: E911 (Emergency Call Relay Center): [phone] National Veterans Crisis Line - 988 then press #1. [facility] Suicide Coordinator [phone], Ext. [phone]; Back-up Ext. [phone] [place] Police, [place], [place] [phone] Introduction: Visit is being conducted by [facility]. identified with 2 identifiers: [X] Full Name [X] Date of [ ] [place] ID Card Emergency Plan: [place] confirmed and/or provided the following information in case of emergency or technology failure. PATIENT PHONE - PHONE NUMBER [CELLULAR] - Is patient phone number correct, if not, enter below: 's phone number: MACK HURTADO [address], [place], [address] 's present location and address for appointment: as listed 's emergency contact name and phone number: as listed [place] reported that location is private and safe: Yes Informed Consent: informed of the risks and benefits of Telehealth video care. [place] has the right to refuse video services. If refuses video visit, a [id number] visit will be scheduled. verbalized consent for this video visit: Yes provided consent for any other persons present for visit: N/A If yes, who and relationship to patient: Secure visit: Visit was locked for security and privacy: Yes S: Pt seen today via VVC for cognitive-communication therapy. Active problems - Computerized Problem List is the source for the followin. 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 Blurred vision 4. Exposure to potentially hazardous substance ([facility] [id number]) 5. Ulnar nerve entrapment 6. Contact with and (suspected) exposure to other hazardous substances 7. Other Contact with and (Suspected) Exposures Hazardous to Health 8. Nasal Congestion 9. Postnasal drip O: The following was addressed during this encounter: //Review of the Pomodoro Technique for studying/working/organizin g and procrastination. Mack tried the strategy and reports some success. He is still tweaking it to better suit his needs. //Education with discussion of Timeboxing. Discussed how he could use this strategy to balance his work/home/school life and needs. //Review of the effects of chronic stress on cognitive function. GOAL Pt. will support cognitive function by incorporating cognitive compensatory strategies and mindfulness techniques into their daily routine. OBJECTIVES // The patient will utilize the Pomodoro Technique for improved organization and attention as evidenced by patient report. The Pomodoro Technique is a time management method developed by Ang Jeff in the late 1980s. The technique uses a timer to break down work into intervals, traditionally 25 minutes in length, by short breaks. Working in intervals allows for periods of sensory stimulation on the break that assist in refreshing attention and the allowance of self-care both of which support cognitive function. // The patient will apply strategies of paraphrasing and summarizing during conversations with a friend or significant other for improved attention and retention, as evidenced by patient self-report. //The patient will use internal strategies to redirect attentional focus when experiencing high levels of mind wandering and/or stress, as evidenced by patient report. //The patient will consistently use external memory aids to support functional, everyday memory skills, as evidenced by patient report. //The patient will improve awareness of the mind-body connection as it relates to cognitive function, as evidenced by patient report. A: Patient presents with a cognitive communication impairment characterized by mild deficits in attention and memory, multifactorial in etiology. P: RTC 10/13/23 @ 4:30 pm /cherri/ Valeria Dan, PhD CCC-PROCUREMENT OFFICER, [facility] Speech-Language Pathologist Signed: 10/06/2023 17:28 VALERIA DAN [facility] [place] [facility]
--- OUTSIDE RECORDS SUMMARY | 2024-02-16 07:38 | XMS_ITS ---
Author Name [facility] [facility] [place] Organization [facility] [place] Address [address] [place] [id number] Support Name Relationship Address Phone HURTADOQING MAZARIEGOSHER Next of Kin [address] [place] [address] HURTADOQING MAZARIEGOSHER Emergency Contact [address] [place] [address] Selected Encounter This section includes the information on record at [place] for the Encounter. Date/Time Encounter Type Encounter Description Reason Provider Source Nov 05, 2023 03:00 PM KATELYNN MDLTY 1+ULTRASOUND EA 15 OCCUPATIONAL THERAPY ICD-10-CM M25.529 Pain in unspecified elbow MACHON,JEWELS E IHE Encounter Template Text not used by [place] Assessments - Encounter Diagnoses This section includes the primary and secondary diagnoses documented for the Encounter. Date/Time Primary/Secondary Diagnosis Diagnosis Name Provider Source Nov 05, 2023 04:13 PM PRIMARY Pain in unspecified elbow CIARAON,JEWESL E [place] [facility] [place] [facility] Plan of Treatment: Future Appointments (+ 6 months) and Future Tests (+/- 45 days) The Plan of Treatment section includes future care activities for the patient from all [place] treatmentfacilities. This section includes future appointments and future orders which are active, pending or scheduled. Future Appointments This section includes appointments that were scheduled to occur 6 months from the date of the Encounter, up to a maximum of 20 appointments. The data comes from all [place] treatment facilities. Appointment Date/Time Appointment Type Appointme nt Facility Name Nov 19, 2023 04:30 PM AMBULATORY - REHAB MEDICIN E [place] [facility] [place] [facility] Nov 25, 2023 02:30 PM AMBULATORY - REHAB MEDICIN E [facility] [place] [facility] Dec 07, 2023 10:30 AM AMBULATORY - PSYCHIATRY [facility] [place] [facility] Dec 08, 2023 08:30 AM AMBULATORY - REHAB MEDICIN E [facility] [place] [facility] Dec 09, 2023 04:30 PM AMBULATORY - REHAB MEDICIN E [facility] [place] [facility] Dec 31, 2023 10:30 AM AMBULATORY - REHAB MEDICIN E [facility] [place] [facility] Jan 15, 2024 03:00 PM AMBULATORY - MEDICINE [place] Jan 20, 2024 04:30 PM AMBULATORY - REHAB MEDICIN E [facility] [place] [facility] Jan 21, 2024 08:30 AM AMBULATORY - REHAB MEDICIN E [facility] [place] [facility] Feb 01, 2024 08:00 AM AMBULATORY - MEDICINE [facility] [place] [facility] Feb 02, 2024 04:00 PM AMBULATORY - NONE [facility] [place] [facility] Feb 04, 2024 09:30 AM AMBULATORY - PSYCHIATRY [facility] [place] [facility] Feb 09, 2024 04:30 PM AMBULATORY - REHAB MEDICIN E [facility] [place] [facility] Mar 28, 2024 03:00 PM AMBULATORY - MEDICINE [facility] [place] [facility] Apr 07, 2024 10:30 AM AMBULATORY - PSYCHIATRY [facility] [place] [facility] Encounter Notes: All associated encounter notes This section contains the clinical notes associated to the Encounter. Date/Time Encounter Note(s) Provider Source Nov 05, 2023 02:59 PM OCCUPATIONAL THERAPY NOTE: LOCAL TITLE: OCCUPATIONAL THERAPY STANDARD TITLE: OCCUPATIONAL THERAPY NOTE DATE OF NOTE: NOV 05, 2023@14:59 ENTRY DATE: NOV 05, 2023@14:59:11 AUTHOR: JEWELS CORONEL COSIGNER: URGENCY: STATUS: COMPLETED Initial Evaluation date: Sep Progress Note Date: Treatment #: 2 Treatment time: 30 minutes Diagnosis: Pain in unspecified Elbow(ICD-10-CM M25.529) Provider: Daryn BELL Treatment Precautions: Patient identified by full name and date of SUBJECTIVE: Pt reports that his R elbow is great! The L elbow is not. Pain Level: 3/10 at rest OBJECTIVE: THERAPEUTIC EXERCISE: MINUTES: MANUAL THERAPY: *mobilization/FDM/IASTM to L mobile wad MINUTES: 17 THERAPEUTIC DYNAMIC ACTIVITIES: MINUTES: NEUROMUSCULAR EDUCATION: MINUTES: OTHER: MINUTES: MODALITIES: *US 1.4 w/cm2 100% 3MHz over L mobile wad MINUTES: 8 [] Contraindication screen completed prior to modality [] Skin intact pre/post SELF CARE/EDUCATION: MINUTES: Patient education was provided for all aspects of care during this clinical encounter. ASSESSMENT: pt tolerated tx well this date. his R elbow improved quite a bit following the tx 2 weeks ago. focused on his L elbow, which was tight and ttp throughout. some fasciculation noted. pt reported increased tightness following tx but is hoping it will respond as his R did. he is wearing the wrist splint but doesn't feel there's been any change. he also had his EMG and was told his R was mild CTS and his L was borderline mild CTS. will await results in CPRS. PLAN: pt scheduled a f/u in 3 weeks. will reassess at that time and provide tx as needed. pt is in agreement w/ this POC. /cherri/ Jewels Coronel, MS OTR/Elsa, CHT Occupational Therapist Signed: 11/05/2023 16:13 JEWELS CORONEL [facility] [place]
--- OUTSIDE RECORDS SUMMARY | 2024-02-16 07:38 | XMS_ITS | Encounter Summary ---
Author Name [facility] [place] Organization [place] Address [address] [place] [address] Support Name Relationship Address Phone HURTADOSRIRAM MAZARIEGOS Next of Kin [address] [place] [address] SRIRAM HURTADO Emergency Contact [address] [place] [address] Selected Encounter This section includes the information on record at [place] for the Encounter. Date/Time Encounter Type Encounter Description Reason Pro vider Source Oct 19, 2023 11:00 AM Outpatient Encounter [facility] Encounter Template Text not used by [place] Plan of Treatment: Future Appointments (+ 6 months) and Future Tests (+/- 45 days) The Plan of Treatment section includes future care activities for the patient from all [place] treatmentfamartin general hospitalities. This section includes future appointments and future orders which are active, pending or scheduled. Future Appointments This section includes appointments that were scheduled to occur 6 months from the date of the Encounter, up to a maximum of 20 appointments. The data comes from all [place] treatment facilities. Appointment Date/Time Appointment Type Appointme nt Facility Name Oct 26, 2023 11:00 AM AMBULATORY - MEDICINE [place] [facility] [place] [facility] Oct 26, 2023 03:30 PM AMBULATORY - MEDICINE [place] [facility] [place] [facility] Oct 27, 2023 04:30 PM AMBULATORY - REHAB MEDICIN E [facility] [place] [facility] Nov 05, 2023 03:00 PM AMBULATORY - REHAB MEDICIN E [facility] [place] [facility] Nov 19, 2023 04:30 PM AMBULATORY - REHAB MEDICIN E [facility] [place] [facility] Nov 25, 2023 02:30 PM AMBULATORY - REHAB MEDICIN E [facility] [place] [facility] Dec 07, 2023 10:30 AM AMBULATORY - PSYCHIATRY [facility] [place] [facility] Dec 08, 2023 08:30 AM AMBULATORY - REHAB MEDICIN E [facility] [place] [facility] Dec 09, 2023 04:30 PM AMBULATORY - REHAB MEDICIN E [facility] [place] [facility] Dec 31, 2023 10:30 AM AMBULATORY - REHAB MEDICIN E [facility] [place] [facility] Jan 15, 2024 03:00 PM [facility] Jan 20, 2024 04:30 PM AMBULATORY - REHAB MEDICIN E [facility] [place] [facility] Jan 21, 2024 08:30 AM AMBULATORY - REHAB MEDICIN E [facility] [place] [facility] Feb 01, 2024 08:00 AM AMBULATORY - MEDICINE [facility] [place] [facility] Feb 02, 2024 04:00 PM AMBULATORY - NONE [facility] [place] [facility] Feb 04, 2024 09:30 AM AMBULATORY - PSYCHIATRY [facility] [place] [facility] Feb 09, 2024 04:30 PM AMBULATORY - REHAB MEDICIN E [facility] [place] [facility] Mar 28, 2024 03:00 PM AMBULATORY - MEDICINE [facility] [place] [facility] Apr 07, 2024 10:30 AM AMBULATORY - PSYCHIATRY [facility] [place] [facility] Social History: Smoking Status (Most current) and Tobacco Use (All prior to encounter date) This section includes the most current, and the historical, smoking and tobacco- related health factors from the [place] facility where the Encounter took place. Current Smoking Status This section includes the most current smoking, or tobacco-related health factor, from the [place] facility where the Encounter took place. Date/Time Current Smoking Status Comment Facil ity July 16, 2023 08:30 AM VA-TOBACCO NEVER USED [place] Encounter Notes: All associated encounter notes This section contains the clinical notes associated to the Encounter. Date/Time Encounter Note(s) Provider Source Oct 19, 2023 09:00 AM ADMINISTRATIVE NOT E: LOCAL TITLE: ADMINISTRATIVE NOTE STANDARD TITLE: ADMINISTRATIVE NOTE DATE OF NOTE: OCT 19, 2023@09:00 ENTRY DATE: OCT 19, 2023@09:01:41 AUTHOR: COSTA FITZPATRICK EXP COSIGNER: URGENCY: STATUS: COMPLETED AMSA unable to reach the [place]. Left message on voicemail to inform appt today 10/19/23 with the Biofeedback group has been cancelled by the clinic. Someone from that clinic will be calling the to reschedule. /cherri/ COSTA FITZPATRICK [facility] Signed: 10/19/2023 09:04 COSTA FITZPATRICK [place]
--- OUTSIDE RECORDS SUMMARY | 2024-02-16 07:38 | XMS_ITS | Encounter Summary ---
Author Name [facility] [place] [facility] [place] Organization [facility] [place] Address [address] [place] [id number] Support Name Relationship Address Phone BRYANT SRIRAM Next of Kin [address] [place] [address] DIANE, SRIRAM Emergency Contact [address] [place] [address] Selected Encounter This section includes the information on record at [place] for the Encounter. Date/Time Encounter Type Encounter Description Reason Provider Source Oct 15, 2023 01:30 PM MANUAL THERAPY 1/> [facility] OCCUPATIONAL THERAPY ICD-10-CM M25.529 Pain in unspecified elbow MACHON,JEWELS E IHE Encounter Template Text not used by [place] Assessments - Encounter Diagnoses This section includes the primary and secondary diagnoses documented for the Encounter. Date/Time Primary/Secondary Diagnosis Diagnosis Name Provider Source Oct 15, 2023 04:04 PM PRIMARY Pain in unspecified elbow CIARAON,JEWELS E [facility] Plan of Treatment: Future Appointments (+ 6 months) and Future Tests (+/- 45 days) The Plan of Treatment section includes future care activities for the patient from all [place] treatmentfacilities. This section includes future appointments and future orders which are active, pending or scheduled. Future Appointments This section includes appointments that were scheduled to occur 6 months from the date of the Encounter, up to a maximum of 20 appointments. The data comes from all [place] treatment facilities. Appointment Date/Time Appointment Type Appointme nt Facility Name Oct 26, 2023 11:00 AM AMBULATORY - MEDICINE [facility] Oct 26, 2023 03:30 PM AMBULATORY - MEDICINE [facility] Oct 27, 2023 04:30 PM AM[facility]UL[facility] [place] [facility] Nov 05, 2023 03:00 PM AMBULATORY - [facility]IC[facility] [place] [facility] Nov 19, 2023 04:30 PM AMBULATORY - [facility]AB [facility]ICIN [facility] [place] [facility] Nov 25, 2023 02:30 PM AMBULATORY - [facility]AB [facility]ICIN [facility] [place] [facility] Dec 07, 2023 10:30 AM AMBULATORY [facility] PS[facility]CHIATRY [facility] [place] [facility] Dec 08, 2023 08:30 AM AMBULATORY - [facility]IC[facility] [place] [facility] Dec 09, 2023 04:30 PM AMBULATORY - [facility]AB [facility]IC[facility] [place] [facility] Dec 31, 2023 10:30 AM AMBULATORY - [facility]AB [facility]ICIN [facility] [place] [facility] Jan 15, 2024 03:00 PM AMBULATORY - MEDICINE [facility] [place] Jan 20, 2024 04:30 PM AMBULATORY - [facility]ICIN [facility] [place] [facility] Jan 21, 2024 08:30 AM AMBULATORY - [facility]HAB [facility]ICIN [facility] [place] [facility] Feb 01, 2024 08:00 AM [facility] [place] [facility] Feb 02, 2024 04:00 PM AMBULATORY - NONE [facility] [place] [facility] Feb 04, 2024 09:30 AM AMBULATORY - PS[facility]CHIATRY [facility] [place] [facility] Feb 09, 2024 04:30 PM AMBULATORY - [facility]AB [facility]ICIN [facility] [place] [facility] Mar 28, 2024 03:00 PM [facility]UL[facility] [place] [facility] Apr 07, 2024 10:30 AM AMBULATORY - PS[facility]CHIATRY [facility] [place] [facility] Encounter Notes: All associated encounter notes This section contains the clinical notes associated to the Encounter. Date/Time Encounter Note(s) Provider Source Oct 15, 2023 01:33 PM OCCUPATIONAL MEDIC INE CONSULT: LOCAL TITLE: CONSULT REPORT/OCCUPATIONAL THERAPY STANDARD TITLE: OCCUPATIONAL MEDICINE CONSULT DATE OF NOTE: OCT 15, 2023@13:33 ENTRY DATE: OCT 15, 2023@13:33:27 AUTHOR: JEWELS CORONEL COSIGNER: MACK DEAN URGENCY: STATUS: COMPLETED Initial Evaluation date: Sep Progress Note Date: Treatment #: eval Treatment time: 50 minutes Diagnosis: Pain in unspecified Elbow(ICD-10-CM M25.529) Provider: Daryn OT Treatment Precautions: Patient identified by full name and date of S: Mr. Diane is a 47 y/o 90% SC male who was referred to OT for b/l elbow pain. He was seen in the OT clinic on 10/15/2023. PMH: Active problems - Computerized Problem List is the source for the followin. 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 Blurred vision 4. Exposure to potentially hazardous substance ([facility] [id number]) 5. Ulnar nerve entrapment 6. Contact with and (suspected) exposure to other hazardous substances 7. Other Contact with and (Suspected) Exposures Hazardous to Health 8. Nasal Congestion 9. Postnasal drip SAMIA: pt reports that he had b/l ulnar nerve transposition around . he reports that if he does any type of activity he develops lateral elbow pain. he was getting therapy for his elbows at [facility]; this was between [id number]. this therapy was quite extensive; cupping, TENS, dry needling, etc. everything helped for a short time, but was not long standing. Imaging: none in CPRS Pain Level: 2/10 at rest, increasing to 5/10 at worst Pain Location: mobile wad radiating proximally Aggravating Factors: leaf blowing, any UE activity Alleviating Factors: NSAID's O: Pt is R hand dominant. 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 He enjoys auto mechanics, hiking, camping, chopping wood, metal work. Road trips. Clinical Presentation: no edema nor erythema noted throughout b/l elbows AROM: WNL and pain free Palpation: ttp and extreme tightness throughout b/l mobile wads, R>L no ttp at common extensor tendon tightness and ttp at b/l brachioradialis Special Tests: Cozen's: (+) b/l Maudsley's: (-) b/l Resisted Supination: (-) b/l Resisted Pronation: (-) b/l Tinel's over Carpal Tunnel: (-) b/l Compression Test: (+) b/l Lens Cleaner Strength Per Dynamometer: measured in pounds per pressure (norms: age) [R] [L] 1. 106# (norm:100#) 106# (norm:95#) 2. 108# 112# 3. 112# 110# 113# 108# (+) ache at the lateral elbow Sensation: pt reports intermittent paresthesia's in the median nerve distribution b/l, sometimes during the day but mostly during sleep. longstanding numbness in the ulnar nerve distribution. TX: *US 1.4 w/cm2 100% 3MHz over R mobile wad, x8' *mobilization/FDM/IASTM to R mobile wad, x10' *issued pt counterforce brace for R; pt able to don/doff I'ly. *issued RIGHT LARGE wrist cock up splint for wear during sleep only. Pt able to don/doff I'ly. *issued pt HEP of prayer stretch and wrist extensor stretch, 30 second hold x2. Pt able to r/d and v/u. Access Code: [email or web address] URL: [email or web address] Date: 10/15/2023 Prepared by: [facility] Exercises - Wrist Prayer Stretch - 1 x daily - 7 x weekly - 3 sets - 3 reps - 30 hold - Standing Wrist Flexion Stretch - 1 x daily - 7 x weekly - 3 sets - 3 reps - 30 hold ASSESSMENT: Mack is a 47 y/o male who presents to the OT w/ s/s of chronic b/l lat epicondylosis/extensor overload syndrome as evidenced by pt report, clinical presentation and positive provocative testing. Pt's telemetry technician is not impacted nor does gripping exacerbate pain. During mobilization, extreme tightness and fasciculations noted. Pt reported improved tightness following tx. Issued a wrist cock up splint for wear during sleep in order to manage nocturnal paresthesia's. PLAN: Plan to see 1x/week for 4-6 weeks for modalities (ionto, US, ice, heat), ther-ex, mobilization/manual therapy as indicated, splinting/bracing as needed, HEP and patient education. Patient is in agreement with this POC. LTG's: 1. pain <2-3/10 at all times 2. pt will report 50% improvement since initiating tx STG's: 1. pt will be I w/ sx management at home (braces, stretching, strengthening) 2. trial modalities (US, ionto) for pain/symptom management 3. patient will report decreased pain in R elbow to <5/10 at worst 4. pt will be able to engage in working out/yard work w/o an increase in pain * The practitioner's co-signature on this note signifies agreement with plan of care and clinical diagnosis code. /cherri/ Jewels Coronel MS OTR/Elsa, CHT Occupational Therapist Signed: 10/15/2023 16:05 /cherri/ MACK DEAN NP NURSE PRACTITIONER Cosigned: 10/16/2023 13:14 JEWELS CORONEL [facility]
--- OUTSIDE RECORDS SUMMARY | 2024-02-16 07:38 | XMS_ITS ---
Author Name [facility] [place] Address [address] [place] [address] Support Name Relationship Address Phone HURTADO, SRIRAM Next of Kin [address] [place] [address] HURTADO, SRIRAM Emergency Contact [address] [place] [address] Selected Encounter This section includes the information on record at [place] for the Encounter. Date/Time Encounter Type Encounter Description Reason Provider Source Oct 13, 2023 04:30 PM THER IVNTJ EA ADDL 15 MIN POLYTRAUMA/TBI IND ICD-10-CM F90.0 Attn-defct hyperactivity disorder, predom inattentive type VALERIA DAN [facility] Encounter Template Text not used by [place] Assessments - Encounter Diagnoses This section includes the primary and secondary diagnoses documented for the Encounter. Date/Time Primary/Secondary Diagnosis Diagnosis Name Provider Source Oct 13, 2023 04:34 PM PRIMARY Attn-defct hyperactivity disorder, predom inattentive type VALERIA DAN [facility] [place] [facility] Oct 13, 2023 04:34 PM SECONDARY Cognitive communication deficit VALERIA DAN [facility] [place] [facility] Oct 13, 2023 04:34 PM SECONDARY Encounter for other specified aftercare VALERIA DAN [facility] [place] [facility] Plan of Treatment: Future Appointments (+ [...] Appointment Type Appointme nt Facility Name Oct 15, 2023 01:30 PM AMBULATORY - REHAB MEDICIN [facility] [place] [facility] Oct 26, 2023 11:00 AM AM[facility]ULATORY [facility]ICINE [facility] [place] [facility] Oct 26, 2023 03:30 PM [facility]ULATORY [facility]ICINE [facility] [place] [facility] Oct 27, 2023 04:30 PM AMBULATORY - REHAB MEDICIN [facility] [place] [facility] Nov 05, 2023 03:00 PM AMBULATORY - REHAB MEDICIN [facility] [place] [facility] Nov 19, 2023 04:30 PM AMBULATORY - REHAB MEDICIN [facility] [place] [facility] Nov 25, 2023 02:30 PM AMBULATORY - REHAB MEDICIN [facility] [place] [facility] Dec 07, 2023 10:30 AM AMBULATORY - PSYCHIATRY [facility] [place] [facility] Dec 08, 2023 08:30 AM AMBULATORY - REHAB MEDICIN [facility] [place] [facility] Dec 09, 2023 04:30 PM AMBULATORY - REHAB MEDICIN [facility] [place] [facility] Dec 31, 2023 10:30 AM AMBULATORY - REHAB MEDICIN [facility] [place] [facility] Jan 15, 2024 03:00 PM [facility] Jan 20, 2024 04:30 PM AMBULATORY - REHAB MEDICIN [facility] [place] [facility] Jan 21, 2024 08:30 AM AMBULATORY - REHAB MEDICIN [facility] [place] [facility] Feb 01, 2024 08:00 AM AMBULATORY - MEDICINE [facility] [place] [facility] Feb 02, 2024 04:00 PM AMBULATORY - NONE [facility] [place] [facility] Feb 04, 2024 09:30 AM AMBULATORY - PSYCHIATRY [facility] [place] [facility] Feb 09, 2024 04:30 PM AMBULATORY - REHAB MEDICIN E [facility] [place] [facility] Mar 28, 2024 03:00 PM [facility] Apr 07, 2024 10:30 AM AMBULATORY - PSYCHIATRY [facility] Active, Pending, and Scheduled Orders This section includes a listing of several types of active, pending, and scheduled orders, including clinic medications orders, diagnostic test orders, procedure orders and consult orders; where the start date of the order is 45 days before the date of the Encounter or 45 days after the date of theEncounter. The data comes from all [facility] facilities. Test Date/Time Test Type Test Details Facility Name Aug 30, 2023 12:00 AM Laboratory - Chemi stry Order CALCIUM BLOOD (SST-SERUM) [facility] Aug 30, 2023 12:00 AM Laboratory - Chemi stry Order URIC ACID BLOOD (SST-SERUM) [facility] Aug 30, 2023 12:00 AM Laboratory - Chemi stry Order PSA BLOOD (SST-SERUM) [facility] Aug 30, 2023 12:00 AM Laboratory - Chemi stry Order FERRITIN BLOOD (SST-SERUM) [facility] Aug 30, 2023 12:00 AM Laboratory - Chemi stry Order VITAMIN D (25-OH) BLOOD (SST-SERUM) [facility] Aug 30, 2023 12:00 AM Laboratory - Chemi stry Order VITAMIN B12 BLOOD (SST-SERUM) [facility] Aug 30, 2023 12:00 AM Laboratory - Chemi stry Order BASIC METABOLIC PANEL (fasting) BLOOD (SST-SERUM) [facility] Aug 30, 2023 12:00 AM Laboratory - Chemi stry Order LIPID PANEL FASTING BLOOD (SST-SERUM) [facility] Aug 30, 2023 12:00 AM Laboratory - Chemi stry Order LIVER FUNCTION BLOOD (SST-SERUM) [facility] Aug 30, 2023 12:00 AM Laboratory - Chemi stry Order CBC AND DIFF (AUTO) BLOOD (LAV-BLOOD) [facility] Aug 30, 2023 12:00 AM Laboratory - Chemi stry Order HEMOGLOBIN A1C PANEL BLOOD (LAV-BLOOD) [facility] Aug 30, 2023 12:00 AM Laboratory - Chemi stry Order TSH BLOOD (SST-SERUM) [facility] Encounter Notes: All associated encounter notes This section contains the clinical notes associated to the Encounter. Date/Time Encounter Note(s) Provider Source Oct 13, 2023 04:25 PM TELEHEALTH NOTE: LOCAL TITLE: [facility] VIDEO CONNECT TBI SPEECH STANDARD TITLE: TELEHEALTH NOTE DATE OF NOTE: OCT 13, 2023@16:25 ENTRY DATE: OCT 13, 2023@16:25:08 AUTHOR: VALERIA DAN COSIGNER: URGENCY: STATUS: COMPLETED [facility] Video Connect (VVC) Standard Documentation VVC Clinician Resources Only: E911 (Emergency Call Relay Center): [phone] National Veterans Crisis Line - 988 then press #1. [place] Suicide Coordinator [phone], Ext. [phone]; Back-up Ext. [phone] [place] Police, [place], [place] [phone] Introduction: Visit is being conducted by [place] [email or web address] Application Connect. [place] identified with 2 identifiers: [X] Full Name [X] Date of [ ] [place] Card Emergency Plan: confirmed and/or provided the following information in case of emergency or technology failure. PATIENT PHONE - PHONE NUMBER [CELLULAR] - Is patient phone number correct, if not, enter below: 's phone number: MACK HURTADO [address], [place], [address] [place]'s present location and address for appointment: as listed 's emergency contact name and phone number: as listed [place] reported that location is private and safe: Yes Informed Consent: [place] informed of the risks and benefits of Telehealth video care. has the right to refuse video services. If refuses video visit, a [id number] visit will be scheduled. verbalized consent for this video visit: Yes [place] provided consent for any other persons present [...] vision 4. Exposure to potentially hazardous substance ([facility] [id number]) 5. Ulnar nerve entrapment 6. Contact with [...] tweaking it to better suit his needs. //Review of Timebox[employer]. Discussed how he could use this strategy to balance his work/home/school life and needs. GOAL Pt. will support cognitive function by [...] and memory, multifactorial in etiology. P: RTC 10/27/23@ 4:30 pm /es/ Valeria Dan, PhD CCC-WAREHOUSE HANDLER, [facility] Speech-Language Pathologist Signed: 10/13/2023 16:59 VALERIA DAN [facility]
--- OUTSIDE RECORDS SUMMARY | 2024-02-16 07:38 | XMS_ITS | Encounter Summary ---
Author Name [facility] [place] [facility] [place] [facility] [place] Address [address] [place] [id number] Support Name Relationship Address Phone SRIRAM HURTADO Next of Kin [address] [place] [address] SRIRAM HURTADO Emergency Contact [address] [place] [address] Selected Encounter This section includes the information on record at [place] for the Encounter. Date/Time Encounter Type Encounter Description Reason Provider Source Oct 05, 2023 11:00 AM BIOFEEDBACK TRAIN ANY [facility] TREATMENT ICD-10-CM F90.0 Attn-defct hyperactivity disorder, predom inattentive type SAMIRA HUMPHREYS Judith Encounter Template Text not used by [place] Assessments - Encounter Diagnoses This section includes the primary and secondary diagnoses documented for the Encounter. Date/Time Primary/Secondary Diagnosis Diagnosis Name Provider Source Oct 08, 2023 08:28 AM PRIMARY Attn-defct hyperactivity disorder, predom inattentive type NAHID HUMPHREYS [place] Plan of Treatment: Future Appointments (+ 6 months) and Future Tests (+/- 45 days) The Plan of Treatment section includes future care activities for the patient from all [place] treatmentfacilities. This section includes future appointments and future orders which are active, pending or scheduled. Future Appointments This section includes appointments that were scheduled to occur 6 months from the date of the Encounter, up to a maximum of 20 appointments. The data comes from all [place] treatment facilities. Appointment Date/Time Appointment Type Appointme nt Facility Name Oct 06, 2023 04:30 PM AMBULATORY [facility] Oct 13, 2023 04:30 PM AMBULATORY [facility] [place] [facility] Oct 15, 2023 01:30 PM [facility] [place] [facility] Oct 26, 2023 11:00 AM AMBULATORY [facility] MEDICINE [facility] [place] [facility] Oct 26, 2023 03:30 PM AMBULATORY [facility] MEDICINE [facility] [place] [facility] Oct 27, 2023 04:30 PM AMBULATORY - [facility] [place] [facility] Nov 05, 2023 03:00 PM AMBULATORY - [facility] [place] [facility] Nov 19, 2023 04:30 PM AMBULATORY - REHAB [facility]ICIN [facility] [place] [facility] Nov 25, 2023 02:30 PM AMBULATORY - [facility]HAB [facility]ICIN [facility] [place] [facility] Dec 07, 2023 10:30 AM AMBULATORY - PSYCHIATRY [facility] [place] [facility] Dec 08, 2023 08:30 AM AMBULATORY - REHAB MEDICIN [facility] [place] [facility] Dec 09, 2023 04:30 PM AMBULATORY - REHAB MEDICIN [facility] [place] [facility] Dec 31, 2023 10:30 AM AMBULATORY - REHAB MEDICIN [facility] [place] [facility] Jan 15, 2024 03:00 PM [facility] Jan 20, 2024 04:30 PM AMBULAT[facility] - [facility]ICIN [facility] [place] [facility] Jan 21, 2024 08:30 AM AMBULATORY - [facility]AB [facility]ICIN [facility] [place] [facility] Feb 01, 2024 08:00 AM AMBULATORY - MEDICINE [facility] [place] [facility] Feb 02, 2024 04:00 PM AMBULATORY - NONE [facility] [place] [facility] Feb 04, 2024 09:30 AM AMBULATORY - PS[facility]CHIATRY [facility] [place] [facility] Feb 09, 2024 04:30 PM AMBULATORY - RE[facility]AB [facility]ICIN [facility] [place] [facility] Active, Pending, and Scheduled Orders This section includes a listing of several types of active, pending, and scheduled orders, including clinic medications orders, diagnostic test orders, procedure orders and consult orders; where the start date of the order is 45 days before the date of the Encounter or 45 days after the date of theEncounter. The data comes from all [place] treatment facilities. Test Date/Time Test Type Test Details Facility Name Aug 30, 2023 12:00 AM Laboratory - Chemi stry Order CALCIUM BLOOD (SST-SERUM) [facility] Aug 30, 2023 12:00 AM Laboratory - Chemi stry Order URIC ACID BLOOD (SST-SERUM) [facility] Aug 30, 2023 12:00 AM Laboratory - Chemi stry Order PSA BLOOD (SST-SERUM) [facility] Aug 30, 2023 12:00 AM Laboratory - Chemi stry Order VITAMIN D (25-OH) BLOOD (SST-SERUM) [facility] Aug 30, 2023 12:00 AM Laboratory - Chemi stry Order FERRITIN BLOOD (SST-SERUM) [facility] Aug 30, 2023 12:00 AM Laboratory - Chemi stry Order VITAMIN B12 BLOOD (SST-SERUM) [facility] Aug 30, 2023 12:00 AM Laboratory - Chemi stry Order BASIC METABOLIC PANEL (fasting) BLOOD (SST-SERUM) [facility] Aug 30, 2023 12:00 AM Laboratory - Chemi stry Order LIPID PANEL FASTING BLOOD (SST-SERUM) [facility] Aug 30, 2023 12:00 AM Laboratory - Chemi stry Order LIVER FUNCTION BLOOD (SST-SERUM) [facility] Aug 30, 2023 12:00 AM Laboratory - Chemi stry Order CBC AND DIFF (AUTO) BLOOD (LAV-BLOOD) [facility] Aug 30, 2023 12:00 AM Laboratory - Chemi stry Order HEMOGLOBIN A1C PANEL BLOOD (LAV-BLOOD) [facility] Aug 30, 2023 12:00 AM Laboratory - Chemi stry Order TSH BLOOD (SST-SERUM) [facility] Social History: Smoking Status (Most current) and Tobacco Use (All prior to encounter date) This section includes the most current, and the historical, smoking and tobacco- related health factors from the [place] facility where the Encounter took place. Current Smoking Status This section includes the most current smoking, or tobacco-related health factor, from the [place] facility where the Encounter took place. Date/Time Current Smoking Status Comment Facil ity July 16, 2023 08:30 AM VA-TOBACCO NEVER USED [place] Encounter Notes: All associated encounter notes This section contains the clinical notes associated to the Encounter. Date/Time Encounter Note(s) Provider Source Oct 08, 2023 08:29 AM ADDENDUM: LOCAL TITLE: Addendum STANDARD TITLE: ADDENDUM DATE OF NOTE: OCT 08, 2023@08:29 ENTRY DATE: OCT 08, 2023@08:29:02 AUTHOR: DANNIE HUMPHREYS EXP COSIGNER: URGENCY: STATUS: COMPLETED alerting amsa to [facility] RTC. thank you /es/ Dannie Humphreys, PhD Clinical Psychologist Signed: 10/08/2023 08:29 Receipt Acknowledged By: 10/08/2023 12:52 /cherri/ CLEVE MARY [employer] HOT DIE PRESS OPERATOR --- Original Document --- 10/05/23 BEHAVIORAL MEDICINE - GROUP TREATMENT: Heart Math Biofeedback Group DATE: 10/05/23 DIAGNOSIS: Attention deficit hyperactivity disorder, predominantly inattentive type LENGTH OF SESSION: 60 min NUMBER OF VETS IN GROUP: 3 CPT: 57536 MODALITY OF CARE: (x) Group visit In-person REASON FOR ENCOUNTER: [place] attended session 3 of 5 of the biofeedback group. INFORMED CONSENT: Veterans were provided information about the purpose of psychophysiological training and that participation is voluntary. Risk and benefits and limits of confidentiality were discussed during the shared decision-making process, and voluntarily agreed to group participation. Additional overview of biofeedback purpose, procedures, and techniques was provided, and offered verbal consent. Orientation to equipment including placement of sensors was reviewed. MEDICAL NECESSITY: [place] is actively engaged in healthcare treatment through this [place] and elects to engage in this group to support overall health improvement. [place] understands this group is not intended to replace standard treatment practices. WHOLE HEALTH COMPLEMENTARY & INTEGRATIVE HEALTH Complementary and Integrative Health (CIH) modalities used: Biofeedback BIOFEEDBACK TRAINING EQUIPMENT: A portable biofeedback device and software was used to measure, analyze, and record biofeedback data from week to week. (x ) Inner Balance and HeartMath SESSION CONTENT: Session #3. The theme today is: Let Go and Breathe The purpose/agenda of the group was shared at the outset of the group. Class began with a brief check-in to trouble shoot obstacles impeding at home practice and review content from last week's class. Psychoeducation provided as it relates to the power of freeze frame/thought stopping to mitigate stress, lesson reactivity, and strengthen resilience through greater connection to heart-focused emotion. Class ended with practice utilizing the new technique that was introduced today. Risk Assessment: No report or indication of thoughts, intent, or plan of harming self or others today. No imminent risk identified. MSE: sounded alert, oriented, and engaged. Euthymic with appropriate affect expression; Concentration appeared WNL x3, no perceptual, behavioral or thought concerns reported or observed. IMPRESSIONS: [place] was engaged today and set personal SMART goals for practice. [place] engaged in breathing practice during session. PLAN: 1) [place] will attend Session 4 in 2 weeks. 2) At Home Practice: 5 minutes of practice daily using practices learned prasanna /cherri/ Dannie Humphreys, PhD Clinical Psychologist Signed: 10/08/2023 08:28 10/08/2023 ADDENDUM STATUS: COMPLETED HAS BEEN BOOKED PER RTC /cherri/ CLEVE MARY ADVANCE HOT DIE PRESS OPERATOR Signed: 10/08/2023 12:51 DANNIE HUMPHREYS [place] Oct 05, 2023 02:00 PM GROUP COUNSELING N OTE: LOCAL TITLE: BEHAVIORAL MEDICINE - GROUP TREATMENT STANDARD TITLE: GROUP COUNSELING NOTE DATE OF NOTE: OCT 05, 2023@14:00 ENTRY DATE: OCT 08, 2023@08:27:03 AUTHOR: DANNIE HUMPHREYS EXP COSIGNER: URGENCY: STATUS: COMPLETED BEHAVIORAL MEDICINE - GROUP TREATMENT Has ADDENDA Heart Math Biofeedback Group DATE: 10/05/23 DIAGNOSIS: Attention deficit hyperactivity disorder, predominantly inattentive type LENGTH OF SESSION: 60 min NUMBER OF VETS IN GROUP: 3 CPT: 02056 MODALITY OF CARE: (x) Group visit In-person REASON FOR ENCOUNTER: [place] attended session 3 of 5 of the biofeedback group. INFORMED CONSENT: Veterans were provided information about the purpose of psychophysiological training and that participation is voluntary. Risk and benefits and limits of confidentiality were discussed during the shared decision-making process, and voluntarily agreed to group participation. Additional overview of biofeedback purpose, procedures, and techniques was provided, and offered verbal consent. Orientation to equipment including placement of sensors was reviewed. MEDICAL NECESSITY: [place] is actively engaged in healthcare treatment through this [place] and elects to engage in this group to support overall health improvement. [place] understands this group is not intended to replace standard treatment practices. WHOLE HEALTH COMPLEMENTARY & INTEGRATIVE HEALTH Complementary and Integrative Health (CIH) modalities used: Biofeedback BIOFEEDBACK TRAINING EQUIPMENT: A portable biofeedback device and software was used to measure, analyze, and record biofeedback data from week to week. (x ) Inner Balance and HeartMath SESSION CONTENT: Session #3. The theme today is: Let Go and Breathe The purpose/agenda of the group was shared at the outset of the group. Class began with a brief check-in to trouble shoot obstacles impeding at home practice and review content from last week's class. Psychoeducation provided as it relates to the power of freeze frame/thought stopping to mitigate stress, lesson reactivity, and strengthen resilience through greater connection to heart-focused emotion. Class ended with practice utilizing the new technique that was introduced today. Risk Assessment: No report or indication of thoughts, intent, or plan of harming self or others today. No imminent risk identified. MSE: [place] sounded alert, oriented, and engaged. Euthymic with appropriate affect expression; Concentration appeared WNL x3, no perceptual, behavioral or thought concerns reported or observed. IMPRESSIONS: [place] was engaged today and set personal SMART goals for practice. engaged in breathing practice during session. PLAN: 1) will attend Session 4 in 2 weeks. 2) At Home Practice: 5 minutes of practice daily using practices learned in /cherri/ Dannie Humphreys, PhD Clinical Psychologist Signed: 10/08/2023 08:28 10/08/2023 ADDENDUM STATUS: COMPLETED alerting amsa to [facility] RTC. thank you /cherri/ Dannie Humphreys, PhD Clinical Psychologist Signed: 10/08/2023 08:29 Receipt Acknowledged By: 10/08/2023 12:52 /cherri/ CLEVE MARY ADVANCE HOT DIE PRESS OPERATOR 10/08/2023 ADDENDUM STATUS: COMPLETED HAS BEEN BOOKED PER RTC /cherri/ CLEVE MARY ADVANCE HOT DIE PRESS OPERATOR Signed: 10/08/2023 12:51 DANNIE HUMPHREYS
--- OUTSIDE RECORDS SUMMARY | 2024-02-16 07:38 | XMS_ITS | Encounter Summary ---
Author Name [facility] [place] [facility] [place] [facility] [place] Address [address] [place] [id number] Support Name Relationship Address Phone HURTADO, SRIRAM Next of Kin [address] [place] [address] HURTADO, SRIRAM Emergency Contact [address] [place] [address] Selected Encounter This section includes the information on record at [place] for the Encounter. Date/Time Encounter Type Encounter Description Reason Provider Source Oct 01, 2023 03:30 PM THER IVNTJ EA ADDL 15 MIN POLYTRAUMA/TBI IND ICD-10-CM F90.0 Attn-defct hyperactivity disorder, predom inattentive type VALERIA DAN [facility] Encounter Template Text not used by [place] Assessments - Encounter Diagnoses This section includes the primary and secondary diagnoses documented for the Encounter. Date/Time Primary/Secondary Diagnosis Diagnosis Name Provider Source Oct 01, 2023 04:28 PM PRIMARY Attn-defct hyperactivity disorder, predom inattentive type VALERIA DAN [place] [facility] [place] [facility] Oct 01, 2023 04:28 PM SECONDARY Cognitive communication deficit VALERIA DAN [place] [facility] [place] [facility] Oct 01, 2023 04:28 PM SECONDARY Encounter for other specified aftercare VALERIA DAN [place] [facility] [place] [facility] Plan of Treatment: Future Appointments (+ [...] Appointment Type Appointme nt Facility Name Oct 05, 2023 11:00 AM AMBULATORY - MEDICINE [facility] [place] [facility] Oct 06, 2023 04:30 PM AMBULATORY - REHAB MEDICIN [facility] [place] [facility] Oct 13, 2023 04:30 PM AMBULATORY - REHAB MEDICIN E [facility] [place] [facility] Oct 15, 2023 01:30 PM AMBULATORY - REHAB MEDICIN E [facility] [place] [facility] Oct 26, 2023 11:00 AM AMBULATORY - MEDICINE [facility] [place] [facility] Oct 26, 2023 03:30 PM AMBULATORY - MEDICINE [facility] [place] [facility] Oct 27, 2023 04:30 PM AMBULATORY - REHAB MEDICIN E [facility] [place] [facility] Nov 05, 2023 03:00 PM AMBULATORY - REHAB MEDICIN E [facility] [place] [facility] Nov 19, 2023 04:30 PM AMBULATORY - REHAB MEDICIN E [facility] [place] [facility] Nov 25, 2023 02:30 PM AMBULATORY - REHAB MEDICIN E [facility] [place] [facility] Dec 07, 2023 10:30 AM AMBULATORY - PSYCHIATRY [facility] [place] [facility] Dec 08, 2023 08:30 AM AMBULATORY - REHAB MEDICIN E [facility] [place] [facility] Dec 09, 2023 04:30 PM AMBULATORY - REHAB MEDICIN E [facility] [place] [facility] Dec 31, 2023 10:30 AM AMBULATORY - REHAB MEDICIN E [facility] [place] [facility] Jan 15, 2024 03:00 PM AMBULATORY - MEDICINE [facility] Jan 20, 2024 04:30 PM AMBULATORY - REHAB MEDICIN E [facility] [place] [facility] Jan 21, 2024 08:30 AM AMBULATORY - REHAB MEDICIN E [facility] [place] [facility] Feb 01, 2024 08:00 AM AMBULATORY - MEDICINE [facility] [place] [facility] Feb 02, 2024 04:00 PM [facility] - NONE [facility] Feb 04, 2024 09:30 AM AMBULATORY - PSYCHIATRY [facility] Active, Pending, and Scheduled Orders This section includes a listing of several types of active, pending, and scheduled orders, including clinic medications orders, diagnostic test orders, procedure orders and consult orders; where the start date of the order is 45 days before the date of the Encounter or 45 days after the date of theEncounter. The data comes from all [facility] facilities. Test Date/Time Test Type Test Details Facility Name Aug 30, 2023 12:00 AM Laboratory - Chemi stry Order CALCIUM BLOOD (SST-SERUM) [facility] Aug 30, 2023 12:00 AM Laboratory - Chemi stry Order URIC ACID BLOOD (SST-SERUM) [facility] Aug 30, 2023 12:00 AM Laboratory - Chemi stry Order PSA BLOOD (SST-SERUM) [facility] Aug 30, 2023 12:00 AM Laboratory - Chemi stry Order VITAMIN D (25-OH) BLOOD (SST-SERUM) [facility] Aug 30, 2023 12:00 AM Laboratory - Chemi stry Order FERRITIN BLOOD (SST-SERUM) [facility] Aug 30, 2023 12:00 AM Laboratory - Chemi stry Order VITAMIN B12 BLOOD (SST-SERUM) [facility] Aug 30, 2023 12:00 AM Laboratory - Chemi stry Order BASIC METABOLIC PANEL (fasting) BLOOD (SST-SERUM) [facility] Aug 30, 2023 12:00 AM Laboratory - Chemi stry Order LIPID PANEL FASTING BLOOD (SST-SERUM) [facility] Aug 30, 2023 12:00 AM Laboratory - Chemi stry Order LIVER FUNCTION BLOOD (SST-SERUM) [facility] Aug 30, 2023 12:00 AM Laboratory - Chemi stry Order CBC AND DIFF (AUTO) BLOOD (LAV-BLOOD) [facility] Aug 30, 2023 12:00 AM Laboratory - Chemi stry Order HEMOGLOBIN A1C PANEL BLOOD (LAV-BLOOD) [facility] Aug 30, 2023 12:00 AM Laboratory - Chemi stry Order TSH BLOOD (SST-SERUM) [facility] Encounter Notes: All associated encounter notes This section contains the clinical notes associated to the Encounter. Date/Time Encounter Note(s) Provider Source Oct 01, 2023 03:37 PM TELEHEALTH NOTE: LOCAL TITLE: [facility] VIDEO CONNECT TBI SPEECH STANDARD TITLE: TELEHEALTH NOTE DATE OF NOTE: OCT 01, 2023@15:37 ENTRY DATE: OCT 01, 2023@15:37:38 AUTHOR: VALERIA DAN EXP COSIGNER: URGENCY: STATUS: COMPLETED [facility] Video Connect (VVC) Standard Documentation VVC Clinician Resources Only: E911 (Emergency Call Relay Center): [phone] National Veterans Crisis Line - 988 then press #1. [facility] Suicide Coordinator [phone], Ext. [phone]; Back-up Ext. [phone] [place] Police, [place], [place] [phone] Introduction: Visit is being conducted by [employer] [facility]. identified with 2 identifiers: [X] Full Name [X] Date of [ ] [place] ID Card Emergency Plan: [place] confirmed and/or provided the following information in case of emergency or technology failure. PATIENT PHONE - PHONE NUMBER [CELLULAR] - Is patient phone number correct, if not, enter below: 's phone number: MACK HURTADO [address], [place], [address] 's present location and address for appointment: as listed 's emergency contact name and phone number: as listed [place] reported that location is private and safe: Yes Informed Consent: informed of the risks and benefits of Telehealth video care. [place] has the right to refuse video services. If refuses video visit, a [id number] visit will be scheduled. verbalized consent for this video visit: Yes provided consent for any other persons present for visit: N/A If yes, who and relationship to patient: Secure visit: Visit was locked for security and privacy: Yes S: Pt seen today via VVC for cognitive-communication therapy. Progress notes reviewed. Active problems - Computerized Problem List is the source for the followin. 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 Blurred vision 4. Exposure to potentially hazardous substance ([facility] [id number]) 5. Ulnar nerve entrapment 6. Contact with and (suspected) exposure to other hazardous substances 7. Other Contact with and (Suspected) Exposures Hazardous to Health 8. Nasal Congestion 9. Postnasal drip O: The following was addressed during this encounter: //Education with discussion of the Pomodoro Technique for studying/working/organizin g and procrastination, Mack participated well in the conversations and stated he is eager to try this with studying. //Education with discussion of the effects of chronic stress on [...] and memory, multifactorial in etiology. P: RTC 10/06/23 @ 4:30 pm /cherri/ Valeria Dan, PhD CCC-BEHAVIORIST, [facility] [place] Speech-Language Pathologist Signed: 10/01/2023 16:29 [facility] DAN [facility]
--- OUTSIDE RECORDS SUMMARY | 2024-02-16 07:38 | XMS_ITS ---
Author Name [facility] [place] [facility] [place] Address [address] [place] [address] Support Name Relationship Address Phone HURTADOQING MAZARIEGOSHER Next of Kin [address] [place] [address] HURTADOQING MAZARIEGOSHER Emergency Contact [address] [place] [address] Selected Encounter This section includes the information on record at [place] for the Encounter. Date/Time Encounter Type Encounter Description Reason Pro vider Source Sep 25, 2023 12:00 PM Outpatient Encounter EVENT (HISTORICAL) IHE Encounter Template Text not used by [place] Plan of Treatment: Future Appointments (+ 6 months) and Future Tests (+/- 45 days) The Plan of Treatment section includes future care activities for the patient from all [place] treatmentfacilities. This section includes future appointments and future orders which are active, pending or scheduled. Future Appointments This section includes appointments that were scheduled to occur 6 months from the date of the Encounter, up to a maximum of 20 appointments. The data comes from all [place] treatment facilities. Appointment Date/Time Appointment Type Appointme nt Facility Name Sep 28, 2023 11:00 AM AMBULATORY - MEDICINE [place] [facility] [place] [facility] Oct 01, 2023 03:30 PM AMBULATORY - REHAB MEDICIN E [place] [facility] [place] [facility] Oct 05, 2023 11:00 AM AMBULATORY - MED[facility] [place] [facility] [place] [facility] Dec 08, 2023 08:30 AM AMBULATORY - REHAB MEDICIN E [facility] [place] [facility] Dec 09, 2023 04:30 PM AMBULATORY - REHAB MEDICIN E [facility] [place] [facility] Dec 31, 2023 10:30 AM AMBULATORY - REHAB MEDICIN E [facility] [place] [facility] Jan 15, 2024 03:00 PM AMBULATORY - MEDICINE [facility] Jan 20, 2024 04:30 PM AMBULATORY - REHAB MEDICIN E [facility] [place] [facility] Jan 21, 2024 08:30 AM AMBULATORY - REHAB MEDICIN E [facility] [place] [facility] Feb 01, 2024 08:00 AM AMBULATORY - MEDICINE [place] [facility] [place] [facility] [...] of theEncounter. The data comes from all [place] treatment facilities. Test Date/Time Test Type Test Details Facility Name Aug 30, 2023 12:00 AM Laboratory - Chemi arely Order CALCIUM BLOOD (SST-SERUM) [facility] Aug 30, 2023 12:00 AM Laboratory - Chemi stry Order URIC ACID BLOOD (SST-SERUM) [facility] Aug 30, 2023 12:00 AM Laboratory - Chemi stry Order PSA BLOOD (SST-SERUM) [facility] Aug 30, 2023 12:00 AM Laboratory - Chemi stry Order FERRITIN BLOOD (SST-SERUM) [facility] Aug 30, 2023 12:00 AM Laboratory - Chemi stry Order VITAMIN D (25-OH) BLOOD (SST-SERUM) [facility] Aug 30, 2023 12:00 AM Laboratory - Chemi stry Order BASIC METABOLIC PANEL (fasting) BLOOD (SST-SERUM) [facility] Aug 30, 2023 12:00 AM Laboratory - Chemi stry Order VITAMIN B12 BLOOD (SST-SERUM) [facility] Aug 30, 2023 12:00 AM Laboratory - Chemi stry Order LIPID PANEL FASTING BLOOD (SST-SERUM) [facility] Aug 30, 2023 12:00 AM Laboratory - Chemi stry Order LIVER FUNCTION BLOOD (SST-SERUM) [facility] Aug 30, 2023 12:00 AM Laboratory - Chemi stry Order CBC AND DIFF (AUTO) BLOOD (LAV-BLOOD) [facility] Aug 30, 2023 12:00 AM Laboratory - Chemi stry Order HEMOGLOBIN A1C PANEL BLOOD (LAV-BLOOD) [facility] Aug 30, 2023 12:00 AM Laboratory - Chemi stry Order TSH BLOOD (SST-SERUM) [facility] Encounter Notes: All associated encounter notes This section contains the clinical notes associated to the Encounter. Date/Time Encounter Note(s) Provider Source Sep 25, 2023 12:00 PM NONVA NOTE: LOCAL TITLE: NON-VA OUTPATIENT NOTES STANDARD TITLE: NONVA NOTE DATE OF NOTE: SEP 25, 2023@12:00 ENTRY DATE: OCT 20, 2023@12:16:06 AUTHOR: HERNANDEZ SAUER EXP COSIGNER: URGENCY: STATUS: COMPLETED VistA Imaging - Scanned Document SCANNED DOCUMENT SIGNATURE NOT REQUIRED Electronically Filed: 10/20/2023 by: HERNANDEZ JAFFE [facility]
--- OUTSIDE RECORDS SUMMARY | 2024-02-16 07:38 | XMS_ITS ---
Author Name [facility] [place] [facility] [place] Address [address] [place] [address] Support Name Relationship Address Phone HURTADO, SRIRAM Next of Kin [address] [place] [address] HURTADO, SRIRAM Emergency Contact [address] [place] [address] Selected Encounter This section includes the information on record at [place] for the Encounter. Date/Time Encounter Type Encounter Description Reason Provider Source Oct 27, 2023 04:30 PM THER IVNTJ EA ADDL 15 MIN POLYTRAUMA/TBI IND ICD-10-CM F90.0 Attn-defct hyperactivity disorder, predom inattentive type SEBASTIAN DAN [facility] Encounter Template Text not used by [place] Assessments - Encounter Diagnoses This section includes the primary and secondary diagnoses documented for the Encounter. Date/Time Primary/Secondary Diagnosis Diagnosis Name Provider Source Oct 27, 2023 05:09 PM PRIMARY Attn-defct hyperactivity disorder, predom inattentive type SEBASTIAN DAN [place] [facility] [place] [facility] Oct 27, 2023 05:09 PM SECONDARY Cognitive communication deficit SEBASTIAN DAN [place] [facility] [place] [facility] Oct 27, 2023 05:09 PM SECONDARY Encounter for other specified aftercare SEBASTIAN DAN [place] [facility] [place] [facility] Plan of Treatment: Future Appointments (+ [...] Appointment Type Appointme nt Facility Name Nov 05, 2023 03:00 PM AMBULATORY - REHAB MEDICIN E [facility] [place] [facility] Nov 19, 2023 04:30 PM AMBULATORY - REHAB MEDICIN E [facility] [place] [facility] Nov 25, 2023 02:30 PM AMBULATORY - REHAB MEDICIN E [facility] [place] [facility] Dec 07, 2023 10:30 AM AMBULATORY - PSYCHIATRY [facility] [place] [facility] Dec 08, 2023 08:30 AM AMBULATORY - REHAB MEDICIN E [facility] [place] [facility] Dec 09, 2023 04:30 PM AMBULATORY - REHAB MEDICIN E [facility] [place] [facility] Dec 31, 2023 10:30 AM AMBULATORY - REHAB MEDICIN E [facility] [place] [facility] Jan 15, 2024 03:00 PM AMBULATORY - MEDICINE [place] Jan 20, 2024 04:30 PM AMBULATORY - REHAB MEDICIN E [facility] [place] [facility] Jan 21, 2024 08:30 AM AMBULATORY - REHAB MEDICIN E [facility] [place] [facility] Feb 01, 2024 08:00 AM AMBULATORY - MEDICINE [place] [facility] [place] [facility] Feb 02, 2024 04:00 PM AMBULATORY - NONE [facility] [place] [facility] Feb 04, 2024 09:30 AM AMBULATORY - PSYCHIATRY [facility] [place] [facility] Feb 09, 2024 04:30 PM AMBULATORY - REHAB MEDICIN E [facility] [place] [facility] Mar 28, 2024 03:00 PM AMBULATORY - MEDICINE [facility] [place] [facility] Apr 07, 2024 10:30 AM AMBULATORY - PSYCHIATRY [facility] [place] [facility] Encounter Notes: All associated encounter notes This section contains the clinical notes associated to the Encounter. Date/Time Encounter Note(s) Provider Source Oct 27, 2023 04:30 PM TELEHEALTH NOTE: LOCAL TITLE: VA VIDEO CONNECT TBI SPEECH STANDARD TITLE: TELEHEALTH NOTE DATE OF NOTE: OCT 27, 2023@16:30 ENTRY DATE: OCT 27, 2023@16:30:08 AUTHOR: SEBASTIAN DAN EXP COSIGNER: URGENCY: STATUS: COMPLETED VA Video Connect (VVC) Standard Documentation VVC Clinician Resources Only: E911 (Emergency Call Relay Center): [phone] National Veterans Crisis Line - 988 then press #1. [facility] Suicide Coordinator [phone], Ext. [phone]; Back-up Ext. [phone] [place] Police, [place], [place] [phone] Introduction: Visit is being conducted by [place] [facility]. [place] identified with 2 identifiers: [X] Full Name [X] Date of [ ] VA ID Card Emergency Plan: [place] confirmed and/or provided the following information in case of emergency or technology failure. PATIENT PHONE - PHONE NUMBER [CELLULAR] - Is patient phone number correct, if not, enter below: [place]'s phone number: MACK Dulce HURTADO [address] [place] [address], [phone] [place]'s present location and address for appointment: as listed [place]'s emergency contact name and phone number: as listed reported that location is private and safe: Yes Informed Consent: [place] informed of the risks and benefits of Telehealth video care. has the right to refuse video services. If refuses video visit, a [id number] visit will be scheduled. verbalized consent for this video visit: Yes [place] provided consent for any other persons present [...] vision 4. Exposure to potentially hazardous substance ([facility] [id number]) 5. Ulnar nerve entrapment 6. Contact with and (suspected) exposure to other hazardous substances 7. Other Contact with and (Suspected) Exposures Hazardous to Health 8. Nasal Congestion 9. Postnasal drip O: The following was addressed during this encounter: //Review of the Pomodoro Technique for studying/working/organizin g and procrastination. Mack has tried the strategy and reports success. He continues to use it in different situations, particularly for studying. //Review of Timeboxing. Mack has been using this strategy for school with good success. GOAL Pt. will support cognitive function by [...] and memory, multifactorial in etiology. P: RTC 11/14/23 @ 9:30 pm /cherri/ Sebastian Dan, PhD CCC-PHYSICAL THERAPIST CLINIC DIRECTOR, [facility] Speech-Language Pathologist Signed: 10/27/2023 17:09 SEBASTIAN DAN CN[facility]L [facility]
--- OUTSIDE RECORDS SUMMARY | 2024-02-16 07:38 | XMS_ITS | Encounter Summary ---
Author Name [facility] of [facility] [place] Organization [place] Address [address] [place] [address] Support Name Relationship Address Phone SRIRAM HURTADO Next of Kin [address] [place] [address] SRIRAM HURTADO Emergency Contact [address] [place] [address] Selected Encounter This section includes the information on record at [place] for the Encounter. Date/Time Encounter Type Encounter Description Reason Provider Source Sep 28, 2023 11:00 AM BIOFEEDBACK TRAIN ANY METH [facility] TREATMENT ICD-10-CM F90.0 Attn-defct hyperactivity disorder, predom inattentive type SAMIRA HUMPHREYS Judith Encounter Template Text not used by [place] Assessments - Encounter Diagnoses This section includes the primary and secondary diagnoses documented for the Encounter. Date/Time Primary/Secondary Diagnosis Diagnosis Name Provider Source Sep 30, 2023 03:17 PM PRIMARY Attn-defct hyperactivity disorder, predom inattentive [...] Appointment Type Appointme nt Facility Name Oct 01, 2023 03:30 PM [facility] Oct 05, 2023 11:00 AM [facility] Oct 06, 2023 04:30 PM AMBULATORY - REHAB MEDICIN E [place] [facility] [place] [facility] Oct 13, 2023 04:30 PM AMBULATORY - REHAB MEDICIN E [facility] [place] [facility] Oct 15, 2023 01:30 PM AMBULATORY - REHAB MEDICIN E [facility] [place] [facility] Oct 26, 2023 11:00 AM AMBULATORY - MEDICINE [place] [facility] [place] [facility] Oct 26, 2023 03:30 PM AMBULATORY - MEDICINE [facility] [place] [facility] Oct 27, 2023 04:30 PM AMBULATORY - REHAB MEDICIN E [facility] [place] [facility] Nov 05, 2023 03:00 PM AMBULATORY - REHAB MEDICIN E [facility] [place] [facility] Nov 19, 2023 04:30 PM AMBULATORY - REHAB MEDICIN E [facility] [place] [facility] Nov 25, 2023 02:30 PM AMBULATORY - REHAB MEDICIN E [facility] [place] [facility] Dec 07, 2023 10:30 AM AMBULATORY - PSYCHIATRY [facility] [place] [facility] Dec 08, 2023 08:30 AM AMBULATORY - REHAB MEDICIN E [facility] [place] [facility] Dec 09, 2023 04:30 PM AMBULATORY - REHAB MEDICIN E [facility] [place] [facility] Dec 31, 2023 10:30 AM AMBULATORY - REHAB MEDICIN E [facility] [place] [facility] Jan 15, 2024 03:00 PM AMBULATORY - MEDICINE [place] Jan 20, 2024 04:30 PM AMBULATORY - REHAB MEDICIN E [facility] [place] [facility] Jan 21, 2024 08:30 AM AMBULATORY - REHAB MEDICIN E [facility] [place] [facility] Feb 01, 2024 08:00 AM AMBULATORY - MEDICINE [place] [facility] [place] [facility] Feb 02, 2024 04:00 PM AMBULATORY - NONE [facility] [place] [facility] Active, Pending, and Scheduled Orders This [...] Chemi stry Order CALCIUM BLOOD (SST-SERUM) [facility] Aug 30, 2023 12:00 AM Laboratory - Chemi stry Order URIC ACID BLOOD (SST-SERUM) [facility] Aug 30, 2023 12:00 AM Laboratory - Chemi stry Order PSA BLOOD (SST-SERUM) [facility] Aug 30, 2023 12:00 AM Laboratory - Chemi stry Order FERRITIN BLOOD (SST-SERUM) [facility] Aug 30, 2023 12:00 AM Laboratory - Chemi stry Order VITAMIN D (25-OH) BLOOD (SST-SERUM) [facility] Aug 30, 2023 12:00 AM Laboratory - Chemi stry Order BASIC METABOLIC PANEL (fasting) BLOOD (SST-SERUM) [facility] Aug 30, 2023 12:00 AM Laboratory - Chemi stry Order VITAMIN B12 BLOOD (SST-SERUM) [facility] Aug 30, 2023 12:00 AM Laboratory - Chemi stry Order LIPID PANEL FASTING BLOOD (SST-SERUM) [facility] Aug 30, 2023 12:00 AM Laboratory - Chemi stry Order LIVER FUNCTION BLOOD (SST-SERUM) [facility] Aug 30, 2023 12:00 AM Laboratory - Chemi stry Order CBC AND DIFF (AUTO) BLOOD (LAV-BLOOD) [facility] Aug 30, 2023 12:00 AM Laboratory - Chemi stry Order HEMOGLOBIN A1C PANEL BLOOD (LAV-BLOOD) [facility] Aug 30, 2023 12:00 AM Laboratory - Chemi stry Order TSH BLOOD (SST-SERUM) [facility] Social History: Smoking Status (Most current) and Tobacco Use (All prior to encounter date) This section includes the most current, and the historical, smoking and tobacco- related health factors from the [place] facility where the Encounter took place. Current Smoking Status This section includes the most current smoking, or tobacco-related health factor, from the [place] facility where the Encounter took place. Date/Time Current Smoking Status Comment Facil ity July 16, 2023 08:30 AM VA-TOBACCO NEVER USED [facility] Encounter Notes: All associated encounter notes This section contains the clinical notes associated to the Encounter. Date/Time Encounter Note(s) Provider Source Sep 30, 2023 03:22 PM ADDENDUM: LOCAL TITLE: Addendum STANDARD TITLE: ADDENDUM DATE OF NOTE: SEP 30, 2023@15:22:17 ENTRY DATE: SEP 30, 2023@15:22:19 AUTHOR: DANNIE HUMPHREYS EXP COSIGNER: URGENCY: STATUS: COMPLETED alerting amsa to rtc in chart for F2F biofeedback. thank you /es/ Dannie Humphreys, PhD Clinical Psychologist Signed: 09/30/2023 15:22 Receipt Acknowledged By: 10/01/2023 13:33 /cherri/ CLEVE MARY ADVANCE PAYROLL BENEFITS CLERK --- Original Document --- 09/30/23 BEHAVIORAL MEDICINE - GROUP TREATMENT: [facility] Biofeedback Group DATE: 09/28/23 LENGTH OF SESSION: 60 min NUMBER OF VETS IN GROUP: 4 CPT: 70726 MODALITY OF CARE: (x) Group visit In-person REASON FOR ENCOUNTER: attended session 2 of 5 of the biofeedback group. INFORMED CONSENT: Veterans were provided information about the purpose of psychophysiological training and that participation is voluntary. Risk and benefits and limits of confidentiality were discussed during the shared decision-making process, and [place] voluntarily agreed to group participation. Additional overview of biofeedback purpose, procedures, and techniques was provided, and offered verbal consent. Orientation to equipment including placement of sensors was reviewed. MEDICAL NECESSITY: is actively engaged in healthcare treatment through this [place] and elects to engage in this group to support overall health improvement. understands this group is not intended to replace standard treatment practices. BIOFEEDBACK TRAINING EQUIPMENT: A portable biofeedback device and software was used to measure, analyze, and record biofeedback data from week to week. (x ) Inner [facility] and [facility] SESSION CONTENT: Session #2. The theme today is: Attitude Breathing The purpose/agenda of the group was shared at the outset of the group. Review at home practice and troubleshooting obstacles to boost commitment to at home practice and smart goals. The role of emotion as a mediating factor of the breathing and HRV/stress response was discussed, with self-directed inquiry into their own experiences for added reference. Patients were asked to increase self-awareness of negative emotions and thoughts that lead to stress responses for them, and then identify coping statements, or positive attitudes/thoughts to address those. They were given time to practice with this beathing strategy, naming coping statements while breathing, and guided to align their breath with positive heart emotions to observe any shifts they experience through visual feedback and internal inquiry; this practice was recorded upon completion. The concept of SMART goal setting was discussed, with the acronym being fully explained and the usefulness of this strategy outlined to help with successful progress. Risk Assessment: No report or indication of thoughts, intent, or plan of harming self or others today. No imminent risk identified. MSE: sounded alert, oriented, and engaged. Euthymic with appropriate affect expression; Concentration appeared WNL x3, no perceptual, behavioral or thought concerns reported or observed. IMPRESSIONS: Mantador was engaged today and set personal SMART goals for practice. engaged in breathing practice during session. PLAN: 1) Mantador will attend Session 3 next week. 2) At Home Practice: 5 minutes of practice daily using practices learned in class was recommended. Patients were asked to set SMART goals. Dx: Primary Attention deficit hyperactivity disorder, predominantly inattentive type /cherri/ Dannie Humphreys, PhD Clinical Psychologist Signed: 09/30/2023 15:19 10/01/2023 ADDENDUM STATUS: COMPLETED THIS VETERINARY PHARMACOLOGIST BOOKED RTC FOR 10/05/23 BIOFEEDBACK GRP /es/ CLEVE MARY ADVANCE PAYROLL BENEFITS CLERK Signed: 10/01/2023 13:33 DANNIE HUMPHREYS FRASER Sep 30, 2023 03:11 PM GROUP COUNSELING N OTE: LOCAL TITLE: BEHAVIORAL MEDICINE - GROUP TREATMENT STANDARD TITLE: GROUP COUNSELING NOTE DATE OF NOTE: SEP 30, 2023@15:11 ENTRY DATE: SEP 30, 2023@15:11:32 AUTHOR: DANNIE HUMPHREYS EXP COSIGNER: URGENCY: STATUS: COMPLETED BEHAVIORAL MEDICINE - GROUP TREATMENT Has ADDENDA [facility] Biofeedback Group DATE: 09/28/23 LENGTH OF SESSION: 60 min NUMBER OF VETS IN GROUP: 4 CPT: 21679 MODALITY OF CARE: (x) Group visit In-person REASON FOR ENCOUNTER: attended session 2 of 5 of the biofeedback group. INFORMED CONSENT: Veterans were provided information about the purpose of psychophysiological training and that participation is voluntary. Risk and benefits and limits of confidentiality were discussed during the shared decision-making process, and [place] voluntarily agreed to group participation. Additional overview of biofeedback purpose, procedures, and techniques was provided, and [place] offered verbal consent. Orientation to equipment including placement of sensors was reviewed. MEDICAL NECESSITY: [place] is actively engaged in healthcare treatment through this [place] and elects to engage in this group to support overall health improvement. understands this group is not intended to replace standard treatment practices. BIOFEEDBACK TRAINING EQUIPMENT: A portable biofeedback device and software was used to measure, analyze, and record biofeedback data from week to week. (x ) Inner Balance and Heart[facility] SESSION CONTENT: Session #2. The theme today is: Attitude Breathing The purpose/agenda of the group was shared at the outset of the group. Review at home practice and troubleshooting obstacles to boost commitment to at home practice and smart goals. The role of emotion as a mediating factor of the breathing and HRV/stress response was discussed, with self-directed inquiry into their own experiences for added reference. Patients were asked to increase self-awareness of negative emotions and thoughts that lead to stress responses for them, and then identify coping statements, or positive attitudes/thoughts to address those. They were given time to practice with this beathing strategy, naming coping statements while breathing, and guided to align their breath with positive heart emotions to observe any shifts they experience through visual feedback and internal inquiry; this practice was recorded upon completion. The concept of SMART goal setting was discussed, with the acronym being fully explained and the usefulness of this strategy outlined to help with successful progress. Risk Assessment: No report or indication of thoughts, intent, or plan of harming self or others today. No imminent risk identified. MSE: sounded alert, oriented, and engaged. Euthymic with appropriate affect expression; Concentration appeared WNL x3, no perceptual, behavioral or thought concerns reported or observed. IMPRESSIONS: was engaged today and set personal SMART goals for practice. [place] engaged in breathing practice during session. PLAN: 1) Mantador will attend Session 3 next week. 2) At Home Practice: 5 minutes of practice daily using practices learned in class was recommended. Patients were asked to set SMART goals. Dx: Primary Attention deficit hyperactivity disorder, predominantly inattentive type /cherri/ Dannie Humphreys, PhD Clinical Psychologist Signed: 09/30/2023 15:19 09/30/2023 ADDENDUM STATUS: COMPLETED alerting amsa to rtc in chart for F2F biofeedback. thank you /cherri/ Dannie Humphreys, PhD Clinical Psychologist Signed: 09/30/2023 15:22 Receipt Acknowledged By: 10/01/2023 13:33 /cherri/ CLEVE MARY ADVANCE PAYROLL BENEFITS CLERK 10/01/2023 ADDENDUM STATUS: COMPLETED THIS VETERINARY PHARMACOLOGIST BOOKED RTC FOR 10/05/23 BIOFEEDBACK GRP /cherri/ CLEVE MARY ADVANCE PAYROLL BENEFITS CLERK Signed: 10/01/2023 13:33 DANNIE HUMPHREYS
--- OUTSIDE RECORDS SUMMARY | 2024-02-16 07:38 | XMS_ITS | Encounter Summary ---
Author Name [facility] [place] Organization [place] Address [address] [place] [id number] Support Name Relationship Address Phone SRIRAM DIANE Next of Kin [address] [place] [address] QING DIANEHER Emergency Contact [address] [place] [address] Selected Encounter This section includes the information on record at [place] for the Encounter. Date/Time Encounter Type Encounter Description Reason Provider Source Sep 24, 2023 02:00 PM OFFICE O/P EST LOW 20 MIN [facility] - IND ICD-10-CM F90.0 Attn-defct hyperactivity disorder, predom inattentive type ITALO HOLM Judith Encounter Template Text not used by [place] Assessments - Encounter Diagnoses This section includes the primary and secondary diagnoses documented for the Encounter. Date/Time Primary/Secondary Diagnosis Diagnosis Name Provider Source Sep 24, 2023 02:11 PM PRIMARY Attn-defct hyperactivity disorder, predom inattentive type JULIO HOLM Sep 24, 2023 02:11 PM SECONDARY Major depressive disorder, recurrent, moderate JULIO HOLM Plan of Treatment: Future Appointments (+ 6 [...] Appointment Type Appointme nt Facility Name Sep 25, 2023 08:15 AM AMBULATORY [place]IC[place] [facility] Sep 28, 2023 11:00 AM AMBULATORY - MEDICINE [place] [facility] Oct 01, 2023 03:30 PM AMBULATORY - REHAB MEDICIN E [facility] [place] [facility] Oct 05, 2023 11:00 AM AMBULATORY - MEDICINE [facility] [place] [place] [facility] Oct 06, 2023 04:30 PM AMBULATORY - REHAB MEDICIN E [place] [facility] [place] [facility] Oct 13, 2023 04:30 PM AMBULATORY - REHAB MEDICIN E [place] [facility] [place] [facility] Oct 15, 2023 01:30 PM AMBULATORY - REHAB MEDICIN E [place] [facility] [place] [facility] Oct 26, 2023 11:00 AM AMBULATORY - MEDICINE [place] [facility] [place] [place] [facility] Oct 26, 2023 03:30 PM AMBULATORY - MEDICINE [place] [facility] [place] [place] [facility] Oct 27, 2023 04:30 PM AMBULATORY - REHAB MEDICIN E [place] [facility] [place] [facility] Nov 05, 2023 03:00 PM AMBULATORY - REHAB MEDICIN E [place] [facility] [place] [facility] Nov 19, 2023 04:30 PM AMBULATORY - REHAB MEDICIN E [place] [facility] [place] [facility] Nov 25, 2023 02:30 PM AMBULATORY - REHAB MEDICIN E [place] [facility] [place] [facility] Dec 07, 2023 10:30 AM AMBULATORY - PSYCHIATRY [facility] [place] [facility] Dec 08, 2023 08:30 AM AMBULATORY - REHAB MEDICIN E [facility] [place] [facility] Dec 09, 2023 04:30 PM AMBULATORY - REHAB MEDICIN E [place] [facility] [place] [facility] Dec 31, 2023 10:30 AM AMBULATORY - REHAB MEDICIN E [place] [facility] [place] [facility] Jan 15, 2024 03:00 PM [facility] Jan 20, 2024 04:30 PM AMBULATORY - REHAB MEDICIN E [place] [facility] [place] [facility] Jan 21, 2024 08:30 AM AMBULATORY - REHAB MEDICIN E [place] [facility] [place] [facility] Active, Pending, and Scheduled Orders This section includes a listing of several types of active, pending, and scheduled orders, including clinic medications orders, diagnostic test orders, procedure orders and consult orders; where the start date of the order is 45 days before the date of the Encounter or 45 days after the date of theEncounter. The data comes from all [facility]. Test Date/Time Test Type Test Details Facility Name Aug 30, 2023 12:00 AM Laboratory - Chemi stry Order CALCIUM BLOOD (SST-SERUM) [facility] Aug 30, 2023 12:00 AM Laboratory - Chemi stry Order PSA BLOOD (SST-SERUM) [facility] Aug 30, 2023 12:00 AM Laboratory - Chemi stry Order URIC ACID BLOOD (SST-SERUM) [facility] Aug 30, 2023 12:00 AM Laboratory - Chemi stry Order FERRITIN BLOOD (SST-SERUM) [facility] Aug 30, 2023 12:00 AM Laboratory - Chemi stry Order VITAMIN D (25-OH) BLOOD (SST-SERUM) [facility] Aug 30, 2023 12:00 AM Laboratory - Chemi stry Order VITAMIN B12 BLOOD (SST-SERUM) [facility] Aug 30, 2023 12:00 AM Laboratory - Chemi stry Order BASIC METABOLIC PANEL (fasting) BLOOD (SST-SERUM) [facility] Aug 30, 2023 12:00 AM Laboratory - Chemi stry Order LIPID PANEL FASTING BLOOD (SST-SERUM) [facility] Aug 30, 2023 12:00 AM Laboratory - Chemi stry Order LIVER FUNCTION BLOOD (SST-SERUM) [facility] 30, 2024 12:00 AM Laboratory - Chemi stry Order HEMOGLOBIN A1C PANEL BLOOD (LAV-BLOOD) [facility] Aug 30, 2023 12:00 AM Laboratory - Chemi stry Order CBC AND DIFF (AUTO) BLOOD (LAV-BLOOD) [facility] Aug 30, 2023 12:00 AM Laboratory - Chemi stry Order TSH BLOOD (SST-SERUM) [facility] Social History: Smoking Status (Most [...] 16, 2023 08:30 AM VA-TOBACCO NEVER USED [place] Encounter Notes: All associated encounter notes This section contains the clinical notes associated to the Encounter. Date/Time Encounter Note(s) Provider Source Sep 24, 2023 01:58 PM TELEHEALTH NOTE: LOCAL TITLE: VA VIDEO CONNECT PSYCHIATRIST NOTE STANDARD TITLE: TELEHEALTH NOTE DATE OF NOTE: SEP 24, 2023@13:58 ENTRY DATE: SEP 24, 2023@14:01:21 AUTHOR: JULIO HOLM COSIGNER: URGENCY: STATUS: COMPLETED VA Video Connect (VVC) Standard Documentation VVC Clinician Resources Only: E911 (Emergency Call Relay Center): [phone] National Veterans Crisis Line - 988 then press #1. CW Suicide Coordinator [phone], Ext. [phone]; Back-up Ext. [phone] [place] Police, [place] [phone] Introduction: Visit is being conducted by [place] eVoter. identified with 2 identifiers: [X] Full Name [X] Date of [ ] VA ID Card Emergency Plan: Warren confirmed and/or provided the following information in case of emergency or technology failure. PATIENT PHONE - PHONE NUMBER [CELLULAR] - Is patient phone number correct, if not, enter below: Warren's phone number: MACK DIANE [address], [place], [address] 's present location and address for appointment: [address] [place] [address], [facility] 's emergency contact name and phone number: unchnaged reported that location is private and safe: Yes Informed Consent: informed of the risks and benefits of Telehealth video care. Warren has the right to refuse video services. If refuses video visit, a jfsu-pe-emay visit will be scheduled. Warren verbalized consent for this video visit: Yes provided consent for any other persons present for visit: N/A If yes, who and relationship to patient: Secure visit: Visit was locked for security and privacy:Yes CHART REVIEW: seen for initial MH consult 07/16/23, noting: SUMMARY AND IMPRESSIONS: Mack Diane is a 47 year old, , domiciled, retired, heterosexual, cisgender [employer] who is not currently service connected. Warren's main goal today is to meet with a prescriber regarding attentional concerns. He is beginning a Bachelor's Degree at [employer]. He has 2 associates degrees. [...] difficulty completing projects, focusing when reading, studying. 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 Deployments: [employer], I felt like if I worked harder [...] before i got out. I was in [employer] Mar 2018- said she was leaving me [...] TIME OF INITIAL VISIT WITH MYSELF 08/11/23: reports he was diagnosed with ADHD at the [facility] by Teofilo Velásquez a few months [...] for about 30 minutes, I find myself re- reading and not comprehending b/c my mind is [...] usual? no Outpatient Treatment: Current: Teofilo at [facility]. He talks me off the ledge. Helps me maintain perspective. Tells me I'm normal. Prior: [id number], threw a chair against a wall, liquid floor and wall applier were called, and they said we had [...] not reminded of helicopter, mentor suicide, and chcf. The ending really spoiled everything. HISTORY: see record Occupation: Currently unemployed after retiring from the . Was unable to find work. Back in school now for a bachelors degree- [employer]. 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 We reviewed options including Strattera vs stimulants. Given son's response to Concerta we agreed to try this. Understands this is a controlled substance, risks and warnings reviewed. --------- PRESENTING SYMPTOMS AND CONDITION ON TODAY'S VISIT: reports Concerta worked really well for the first 2-3 weeks, I felt better, not achy, I could focus. Then it slowly tapered off. I can tell when I'm not taking it . REVIEW OF SYSTEMS MENTAL HEALTH: SLEEP: good now MOOD: good, depression a little bit here and there PTSD symptoms: denied ANXIETY: a lot of major life changes? I feel the anxiety is normal being stressed about things ANGER/IRRITABILITY/AGGRESSION: Denies SUBSTANCE USE: Alcohol: none Illegal/non-prescribed drugs: none TOBACCO: none WERNER/HYPOMANIA: None evident PSYCHOTIC FEATURES: None evident Suicidal Thoughts/Intent/plan: denied Social Status/ Stressors: no changes CURRENT PSYCH meds: concerta 36mg daily ADVERSE EFFECTS: initially hard to get to sleep MED REC: no changes reported, takes sriram, gabapentin, diclofenac MENTAL STATUS EXAMINATION - Appearance and behavior: Appears stated age, appropriately groomed and dressed, pleasant and cooperative - Speech and language: without impairment of rate, rhythm, inflection, volume, or fluency, without latency - Mood: as noted above - Affect: pleasant and calm without lability or agitation - Thought Process: Linear, logical; no loosening of associations or FOI - Thought Content: without delusions (paranoia, thought broadcasting, thought withdrawal, thought insertion, ideas of reference) - Perceptions: Denies auditory and visual hallucinations - IMPULSES/HARM: - Wishes to be ? denied - Reasons for living identified: my family. There's a lot of good things going on - Lethal means assessment: no weapons in home - Cognition: No noted impairment - Insight: no impairment evident - Judgment: no impairment evident- Thoughts/plan/intention of killing self? no - Homicidal ideation, plan, intent, actions: denied - Reasons for living identified: - Cognition: Time: grossly intact - Insight: limited - Judgment: no impairment evident NARRATIVE SUMMARY OF CURRENT CONDITION AND OVERALL PROGRESS TOWARD TREATMENT GOALS: noted significant improvement with addition of concerta. Given recent decrement in response will increase dose to 54mg daily i. Severity of Illness: ()none (x )mild ( )moderately ill ()severely ill ()very severely ill ii. Global Improvement: ()very much (x)much ( )min ( )none ()min worse ()much worse ()very much worse iii. : RISK ASSESSEMENT: currently (x) no evidence of acute risk, no increase in risk factors () elevated based on: () acute risk noted but agrees to Safety Plan: () acute risk noted, emergency plan implemented INTERVENTION: -THERAPY: at least 16 minutes spend in individual counseling discussing psychological issues, coping strategies, current stressors -SOMATIC: reviewed and discussed medication options: risks, side effects alternatives ? understood and accepted; answered patient questions PLAN OF CARE/ RECOMMENDATIONS: 1. Recommended and discussed the following medications changes: as noted above 2. Tests or specialist referrals recommended, or old records desired, if any: none 3. Medical Necessity/ Psychiatric treatment goals for future visits: ( x) Sustain improvement ( x) Gain improvement toward remission ( x) Prevent decline in functioning ( x) Prevent hospitalization 4. Considered referral to psychotherapy program for any counseling needs: n/a 5. Considered referral to inpatient/IOP care: n/a 6. Considered referral nutrition program for any lifestyle/dietary needs: n/a 7. Follow-up plans; patient is scheduled for a follow-up appointment with myself in: 4-6 weeks, sooner if needed Additional Follow-Up instructions: 1. Reinforced: If urgent treatment is needed, call [phone] or go to the nearest Emergency Room 2. To schedule or change an appointment, inquire about medication refills, etc: call office number during normal office hours /cherri/ JULIO HOLM M.D. Signed: 09/24/2023 14:12 JULIO HOLMFIELD
--- OUTSIDE RECORDS SUMMARY | 2024-02-16 07:38 | XMS_ITS ---
Author Name [facility] [place] Organization [facility] [place] Address [address] [place] [address] Support Name Relationship Address Phone BRYANT SRIRAM Next of Kin [address] [place] [address] SRIRAM HURTADO Emergency Contact [address] [place] [address] Selected Encounter This section includes the information on record at [place] for the Encounter. Date/Time Encounter Type Encounter Description Reason Pro vider Source Nov 03, 2023 01:40 PM Outpatient En[facility] Encounter Template Text not used by [place] Plan of Treatment: Future Appointments (+ 6 months) and Future Tests (+/- 45 days) The Plan of Treatment section includes future care activities for the patient from all [place] treatmentfacilities. This section includes future appointments and future orders which are active, pending or scheduled. Future Appointments This section includes appointments that were scheduled to occur 6 months from the date of the Encounter, up to a maximum of 20 appointments. The data comes from all [place] treatment facilities. Appointment Date/Time Appointment Type Appointme nt Facility Name Nov 05, 2023 03:00 PM AMBULATORY - REHAB MEDICIN E [facility] [facility] Nov 19, 2023 04:30 PM AMBULATORY - REHAB MEDICIN E [facility] [place] [facility] Nov 25, 2023 02:30 PM AMBULATORY - REHAB MEDICIN E [facility] [place] [facility] Dec 07, 2023 10:30 AM AMBULATORY - PSYCHIATRY [place] [facility] [place] [facility] Dec 08, 2023 08:30 AM AMBULATORY - REHAB MEDICIN E [facility] [place] [facility] Dec 09, 2023 04:30 PM AMBULATORY - REHAB MEDICIN E [facility] [place] [facility] Dec 31, 2023 10:30 AM AMBULATORY - REHAB MEDICIN E [facility] [place] [facility] Jan 15, 2024 03:00 PM [facility] Jan 20, 2024 04:30 PM AMBULATORY - REHAB MEDICIN E [facility] [place] [facility] Jan 21, 2024 08:30 AM AMBULATORY - REHAB MEDICIN E [facility] [place] [facility] Feb 01, 2024 08:00 AM AMBULATORY - MEDICINE [facility] [place] [facility] Feb 02, 2024 04:00 PM AMBULATORY - NONE [facility] [place] [facility] Feb 04, 2024 09:30 AM AMBULATORY - PSYCHIATRY [facility] [place] [facility] Feb 09, 2024 04:30 PM AMBULATORY - REHAB MEDICIN E [facility] [facility] Mar 28, 2024 03:00 PM AMBULATORY - MEDICINE [facility] [place] [facility] Apr 07, 2024 10:30 AM AMBULATORY - PSYCHIATRY [facility] [place] [facility] Encounter Notes: All associated encounter notes This section contains the clinical notes associated to the Encounter. Date/Time Encounter Note(s) Provider Source Nov 03, 2023 01:40 PM MENTAL HEALTH MEDI CATION MGT NOTE: LOCAL TITLE: MHC/MEDICATION REFIL NOTE STANDARD TITLE: MENTAL HEALTH MEDICATION MGT NOTE DATE OF NOTE: NOV 03, 2023@13:40 ENTRY DATE: NOV 03, 2023@13:40:21 AUTHOR: ZARINA PARTIDA EXP COSIGNER: URGENCY: STATUS: COMPLETED MHC/MEDICATION REFIL NOTE Has ADDENDA called office to rs appt cx appt. by clinic. was able to get next appt [facility] 12/07/2023 @ 1030 am. link sent at this time. states he was on a bridge supply of medication to get him through till this previous appt. he will be out before the 12/06 rs'd appt. would like refill/renewal for mail please as soon as possible. isaac /cherri/ ZARINA PARTIDA ADVANCED OUTBOARD MOTORBOAT OPERATOR Signed: 11/03/2023 13:45 Receipt Acknowledged By: 11/03/2023 14:00 /cherri/ GREGG MCCLELLAND Registered Nurse 11/03/2023 14:23 /cherri/ ALEXIA FAIRBANKS, MSN, RN, CNL MENTAL HEALTH NURSE [employer]AME CARPENTER 11/03/2023 14:36 /cherri/ JULIO HOLM M.D. 11/03/2023 ADDENDUM STATUS: COMPLETED I called to inform that Concerta was mailed out 10/27, and that he will need to call monthly for refills. Suggested that he call at least a week before he needs the medication. He stated he received the Concerta, but didn't realize he will need to call every month for renewal. He understands the process now. /cherri/ GREGG MCCLELLAND Registered Nurse Signed: 11/03/2023 14:00 ZARINA PARTIDA
--- OUTSIDE RECORDS SUMMARY | 2024-02-16 07:39 | XMS_ITS ---
Author Name [facility] [place] [facility] [place] Organization [place] Address [address] [place] [address] Support Name Relationship Address Phone HURTADO, SRIRAM Next of Kin [address] [place] [address] HURTADOQING MAZARIEGOSHER Emergency Contact [address] [place] [address] Selected Encounter This section includes the information on record at [place] for the Encounter. Date/Time Encounter Type Encounter Description Reason Provider Source Dec 08, 2023 08:30 AM KATELYNN MDLTY 1+ULTRASOUND EA 15 OCCUPATIONAL THERAPY ICD-10-CM M25.529 Pain in unspecified elbow CIARAONTERRYE E IHE Encounter Template Text not used by [place] Assessments - Encounter Diagnoses This section includes the primary and secondary diagnoses documented for the Encounter. Date/Time Primary/Secondary Diagnosis Diagnosis Name Provider Source Dec 08, 2023 04:00 PM PRIMARY Pain in unspecified elbow TERRY CORONELE E [place] [facility] [place] [facility] Plan of Treatment: Future Appointments (+ [...] Date/Time Appointment Type Appointme nt Facility Name Dec 09, 2023 04:30 PM AMBULATORY - REHAB MEDICIN E [place] [facility] [place] [facility] Dec 31, 2023 10:30 AM AMBULATORY - REHAB MEDICIN E [place] [facility] [place] [facility] Jan 15, 2024 03:00 PM AMBULATORY - MEDICINE [place] Jan 20, 2024 04:30 PM AMBULATORY - REHAB MEDICIN E [facility] [place] [facility] Jan 21, 2024 08:30 AM AMBULATORY - REHAB MEDICIN E [facility] [facility] Feb 01, 2024 08:00 AM AMBULATORY - MEDICINE [place] [facility] [place] [facility] Feb 02, 2024 04:00 PM AMBULATORY - NONE [facility] [place] [facility] Feb 04, 2024 09:30 AM AMBULATORY - PSYCHIATRY [facility] [place] [facility] Feb 09, 2024 04:30 PM AMBULATORY - REHAB MEDICIN E [facility] [facility] Mar 28, 2024 03:00 PM AMBULATORY - MEDICINE [facility] [place] [facility] Apr 07, 2024 10:30 AM AMBULATORY - PSYCHIATRY [facility] [place] [facility] Active, Pending, and Scheduled Orders This [...] Date/Time Test Type Test Details Facility Name Jan 15, 2024 03:28 PM Consult Order [facility] Cons Lead Electrical Engineer[facility] Encounter Notes: All associated encounter notes This section contains the clinical notes associated to the Encounter. Date/Time Encounter Note(s) Provider Source Dec 08, 2023 07:08 AM OCCUPATIONAL THERAPY NOTE: LOCAL TITLE: OCCUPATIONAL THERAPY STANDARD TITLE: OCCUPATIONAL THERAPY NOTE DATE OF NOTE: DEC 08, 2023@07:08 ENTRY DATE: DEC 08, 2023@07:08:47 AUTHOR: JEWELS CORONEL COSIGNER: URGENCY: STATUS: COMPLETED Initial Evaluation date: Sep Progress Note Date: Treatment #: 4 Treatment time: 31 minutes Diagnosis: Pain in unspecified Elbow(ICD-10-CM M25.529) Provider: Daryn BELL Treatment Precautions: Patient identified by full name and date of SUBJECTIVE: Pt reports that the L elbow has been doing pretty good. He does feel the pain is more deep inside the elbow. Pain Level: 2/10 at rest OBJECTIVE: THERAPEUTIC EXERCISE: MINUTES: MANUAL THERAPY: *mobilization/FDM/IASTM to L mobile wad/common extensor tendon *taping to ulnar transposition scar; pulling each direction. reviewed how to remove tape. pt v/u. MINUTES: 17 THERAPEUTIC DYNAMIC ACTIVITIES: MINUTES: NEUROMUSCULAR EDUCATION: MINUTES: OTHER: MINUTES: MODALITIES: *US 1.4 w/cm2 100% 3MHz over L mobile wad MINUTES: 8 [] Contraindication screen completed prior to modality [x] Skin intact pre/post SELF CARE/EDUCATION: MINUTES: Patient education was provided for all aspects of care during this clinical encounter. ASSESSMENT: pt tolerated tx well this date. extreme tightness throughout mobile wad noted. pt does report a deep ache, possibly d/t scar tissue. taped scar tissue to attempt to improve mobility. scar is slightly adhered. PLAN: pt scheduled a f/u in 2 weeks. pt is in agreement w/ this POC. /cherri/ Jewels Coronel, MS OTR/L, CHT Occupational Therapist Signed: 12/08/2023 16:00 JEWELS CORONEL [facility]
--- OUTSIDE RECORDS SUMMARY | 2024-02-16 07:39 | XMS_ITS ---
Author Name Department of [place] Organization [facility] [place] Address [address] [place] [address] Support Name Relationship Address Phone HURTADO, SRIRAM Next of Kin [address] [place] [address] HURTADO, SRIRAM Emergency Contact [address] [place] [address] Selected Encounter This section includes the information on record at [place] for the Encounter. Date/Time Encounter Type Encounter Description Reason Provider Source Nov 25, 2023 02:30 PM KATELYNN MDLTY 1+ULTRASOUND EA 15 OCCUPATIONAL THERAPY ICD-10-CM M25.529 Pain in unspecified elbow CIARAONTEREJEWELS E IHE Encounter Template Text not used by [place] Assessments - Encounter Diagnoses This section includes the primary and secondary diagnoses documented for the Encounter. Date/Time Primary/Secondary Diagnosis Diagnosis Name Provider Source Nov 25, 2023 04:18 PM PRIMARY Pain in unspecified elbow TERRY CORONELE E [facility] Plan of Treatment: Future Appointments (+ [...] Appointment Type Appointme nt Facility Name Dec 07, 2023 10:30 AM AMBULATORY - PSYCHIATRY [facility] Dec 08, 2023 08:30 AM [facility] Dec 09, 2023 04:30 PM [facility] [place] [facility] Dec 31, 2023 10:30 AM AMBULATORY - [facility] [place] [facility] Jan 15, 2024 03:00 PM AMBULATORY - MEDICINE [place] [place] Jan 20, 2024 04:30 PM AMBULATORY - [facility]IC[facility] [place] [facility] Jan 21, 2024 08:30 AM AMBULATORY [facility] [place] [facility] Feb 01, 2024 08:00 AM AM[facility]ULATORY [facility]INE [facility] [place] [facility] Feb 02, 2024 04:00 PM AMBULATORY - NONE [facility] [place] [facility] Feb 04, 2024 09:30 AM AMBULATORY - PS[facility]CHIATRY [facility] [place] [facility] Feb 09, 2024 04:30 PM AMBULATORY - [facility]AB MEDICIN [facility] [place] [facility] Mar 28, 2024 03:00 PM AMBULATORY - MEDICINE [facility] [place] [facility] Apr 07, 2024 10:30 AM AMBULATORY - PSYCHIATRY [facility] [place] [facility] Encounter Notes: All associated encounter notes This section contains the clinical notes associated to the Encounter. Date/Time Encounter Note(s) Provider Source Nov 25, 2023 02:15 PM OCCUPATIONAL THERAPY NOTE: LOCAL TITLE: OCCUPATIONAL THERAPY STANDARD TITLE: OCCUPATIONAL THERAPY NOTE DATE OF NOTE: NOV 25, 2023@14:15 ENTRY DATE: NOV 25, 2023@14:15:30 AUTHOR: JEWELS CORONEL COSIGNER: URGENCY: STATUS: COMPLETED Initial Evaluation date: Sep Progress Note Date: Treatment #: 3 Treatment time: 30 minutes Diagnosis: Pain in unspecified Elbow(ICD-10-CM M25.529) Provider: Daryn BELL Treatment Precautions: Patient identified by full name and date of SUBJECTIVE: Pt reports that the L elbow gives him the worst time. It did feel really good for a few days following tx. Pain Level: 3/10 at rest OBJECTIVE: THERAPEUTIC [...] ASSESSMENT: pt tolerated tx well this date. R elbow remains pretty good, L continues to be problematic. extreme tightness noted throughout mobile wad. pt reported improved tightness following tx, but w/ soreness. PLAN: pt scheduled a f/u in 2 weeks. pt is in agreement w/ this POC. /cherri/ Jewels Coronel, MS OTR/L, CHT Occupational Therapist Signed: 11/25/2023 16:18 JEWELS CORONEL [facility]
--- OUTSIDE RECORDS SUMMARY | 2024-02-16 07:39 | XMS_ITS | Encounter Summary ---
Author Name Department of Vetera ns Affairs ([place]) Organization Department of Vetera ns Affairs [place]) Address [address] [place] [address] Support Name Relationship Address Phone HURTADOQING MAZARIEGOSHER Next of Kin [address] [place] [address] HURTADOQING MAZARIEGOSHER Emergency Contact [address] [place] [address] Selected Encounter This section includes the information on record at [place] for the Encounter. Date/Time Encounter Type Encounter Description Reason Provider Source Nov 19, 2023 04:30 PM THER IVNTJ EA ADDL 15 MIN SPEECH-LANGUAGE PATHOLOGY ICD-10-CM F90.0 Attn-defct hyperactivity disorder, predom inattentive type VALERIA DAN [facility] Encounter Template Text not used by [place] Assessments - Encounter Diagnoses This section includes the primary and secondary diagnoses documented for the Encounter. Date/Time Primary/Secondary Diagnosis Diagnosis Name Provider Source Nov 19, 2023 05:00 PM PRIMARY Attn-defct hyperactivity disorder, predom inattentive type VALERIA DAN [facility] [place] [facility] Nov 19, 2023 05:00 PM SECONDARY Cognitive communication deficit VALERIA DAN [facility] [place] [facility] Nov 19, 2023 05:00 PM SECONDARY Encounter for other specified aftercare VALERIA DAN [facility] [place] [facility] Plan of Treatment: Future Appointments (+ 6 months) and Future Tests (+/- 45 days) The Plan of Treatment section includes future care activities for the patient from all [place] treatmentfacilities. This section includes future appointments and future orders which are active, pending or scheduled. Future Appointments This section includes appointments that were scheduled to occur 6 months from the date of the Encounter, up to a maximum of 20 appointments. The data comes from all VA treatment facilities. Appointment Date/Time Appointment Type Appointme nt Facility Name Nov 25, 2023 02:30 PM AMBULATORY - [facility]ICIN [facility] [place] [facility] Dec 07, 2023 10:30 AM AMBULATORY - PS[facility]IATRY [facility] [place] [facility] Dec 08, 2023 08:30 AM AMBULATORY - [facility]ICIN [facility] [place] [facility] Dec 09, 2023 04:30 PM AMBULATORY - [facility]AB [facility]ICIN [facility] [place] [facility] Dec 31, 2023 10:30 AM AMBULATORY - [facility]ICIN [facility] [place] [facility] Jan 15, 2024 03:00 PM [facility] Jan 20, 2024 04:30 PM [...] PSYCHIATRY [facility] [place] [facility] Encounter Notes: All associated encounter notes This section contains the clinical notes associated to the Encounter. Date/Time Encounter Note(s) Provider Source Nov 19, 2023 04:28 PM TELEHEALTH NOTE: LOCAL TITLE: VA VIDEO CONNECT TBI SPEECH STANDARD TITLE: TELEHEALTH NOTE DATE OF NOTE: NOV 19, 2023@16:28 ENTRY DATE: NOV 19, 2023@16:28:13 AUTHOR: VALERIA DAN EXP COSIGNER: URGENCY: STATUS: COMPLETED [facility] Video Connect (VVC) Standard Documentation VVC Clinician Resources Only: E911 (Emergency Call Relay Center): [phone] National Veterans Crisis Line - 988 then press #1. REBEL Suicide Coordinator [phone], Ext. [phone]; Back-up Ext. [phone] [place] Police, Lotus LUQUE [phone] Introduction: Visit is being conducted by [place] Video Connect. identified with 2 identifiers: [X] Full Name [X] Date of [ ] VA ID Card Emergency Plan: Adams confirmed and/or provided the following information in case of emergency or technology failure. PATIENT PHONE - PHONE NUMBER [CELLULAR] - Is patient phone number correct, if not, enter below: 's phone number: MACK HURTADO [address] [place], [place], [address] 's present location and address for appointment: as listed Adams's emergency contact name and phone number: as listed Adams reported that location is private and safe: Yes Informed Consent: informed of the risks and benefits of Telehealth video care. has the right to refuse video services. If refuses video visit, a [id number] visit will be scheduled. verbalized consent for this video visit: Yes Adams provided consent for any other persons present for visit: N/A If yes, who and relationship to patient: Secure visit: Visit was locked for security and privacy: Yes S: Pt seen today via VVC for cognitive-communication therapy. Mack just returned from [place], dropping his son off at college. Active problems - Computerized Problem List is the source for the followin. 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 Blurred vision 4. Exposure to potentially hazardous substance ([facility] [id number]) 5. Ulnar nerve entrapment 6. Contact with and (suspected) exposure to other hazardous substances 7. Other Contact with and (Suspected) Exposures Hazardous to Health 8. Nasal Congestion 9. Postnasal drip Encounter time 25 mins O: The following was addressed during this encounter: //Review of the Pomodoro Technique for studying/working/organizin g and procrastination. //Review of Timeboxing. Mack has been using this strategy for school with good success. He is beginning to use it with the family calendar but that is a work in progress. Mack participated well in the discussion offering ways he could assist family members with the strategy. //Education with discussion of the effects of stress on cognitive function. Discussed how his son's challenges with being away from home has increased his stress. GOAL Pt. will support cognitive function by [...] in attention and memory, multifactorial in etiology. He is benefiting from skilled ST and making good progress on all goals. P: FAIZA 12/09/23 @ 4:30 pm /es/ Valeria Dan, PhD CCC-SOILS TECHNICIAN, [facility] Speech-Language Pathologist Signed: 11/19/2023 17:00 VALERIA DAN [facility]
--- OUTSIDE RECORDS SUMMARY | 2024-02-16 07:39 | XMS_ITS ---
Author Name Department of Veter[place] Affairs [place] Organization [place] Address [address] [place] [address] Support Name Relationship Address Phone HURTADOQING MAZARIEGOSHER Next of Kin [address] [place] [address] BRYANTQINGSRIRAM Emergency Contact [address] [place] [address] Selected Encounter This section includes the information on record at [place] for the Encounter. Date/Time Encounter Type Encounter Description Reason Pro vider Source Oct 26, 2023 12:00 PM Outpatient Encounter COMMUNITY CARE CONSULT IHE Encounter Template Text not used by [place] Plan of Treatment: Future Appointments (+ 6 months) and Future Tests (+/- 45 days) The Plan of Treatment section includes future care activities for the patient from all [place] treatmentfacilities. This section includes future appointments and future orders which are active, pending or scheduled. Future Appointments This section includes appointments that were scheduled to occur 6 months from the date of the Encounter, up to a maximum of 20 appointments. The data comes from all [place] treatment facilities. Appointment Date/Time Appointment Type Appointme nt Facility Name Oct 27, 2023 04:30 PM AMBULATORY - [facility]ICIN [facility] [place] [facility] Nov 05, 2023 03:00 PM AMBULATORY - REHAB MEDICIN [facility] [place] [facility] Nov 19, 2023 04:30 PM AMBULATORY - REHAB [facility]ICIN [facility] [place] [facility] Nov 25, 2023 02:30 PM AMBULATORY - REHAB [facility]ICIN [facility] [place] [facility] Dec 07, 2023 10:30 AM AMBULATORY - PSYCHIATRY [facility] [place] [facility] Dec 08, 2023 08:30 AM AMBULATORY - REHAB MEDICIN E [facility] [place] [facility] Dec 09, 2023 04:30 PM AMBULATORY - REHAB MEDICIN [facility] [place] [facility] Dec 31, 2023 10:30 AM AMBULATORY - REHAB MEDICIN E [facility] [place] [facility] Jan 15, 2024 03:00 PM AMBULATORY - [place]ICINE [place] [place] Jan 20, 2024 04:30 PM AMBULATORY - REHAB MEDICIN E [facility] [place] [facility] Jan 21, 2024 08:30 AM AMBULATORY - REHAB MEDICIN E [facility] [place] [facility] Feb 01, 2024 08:00 AM AMBULATORY - MEDICINE [facility] [place] [facility] Feb 02, 2024 04:00 PM AMBULATORY - NONE [facility] [place] [facility] Feb 04, 2024 09:30 AM AMBULATORY - PSYCHIATRY [facility] [place] [facility] Feb 09, 2024 04:30 PM AMBULATORY - REHAB [facility]ICIN [facility] [place] [facility] Mar 28, 2024 03:00 PM AMBULATORY - MEDICINE [facility] [place] [facility] Apr 07, 2024 10:30 AM AMBULATORY - PSYCHIATRY [facility] [place] [facility] Encounter Notes: All associated encounter notes This section contains the clinical notes associated to the Encounter. Date/Time Encounter Note(s) Provider Source Oct 26, 2023 12:00 PM NEUROLOGY CONSULT: LOCAL TITLE: CONSULT REPORT/NEUROLOGY STANDARD TITLE: NEUROLOGY CONSULT DATE OF NOTE: OCT 26, 2023@12:00 ENTRY DATE: NOV 17, 2023@14:31:46 AUTHOR: HAVEN SULLIVAN EXP COSIGNER: URGENCY: STATUS: COMPLETED VistA Imaging - Scanned Document SCANNED DOCUMENT SIGNATURE NOT REQUIRED Electronically Filed: 11/17/2023 by: HAVEN SULLIVAN MONORAIL CAR OPERATOR HAVEN SULLIVAN [place] [facility] [place] [facility]
--- OUTSIDE RECORDS SUMMARY | 2024-02-16 07:39 | XMS_ITS | Encounter Summary ---
Author Name Department [place] Organization [place] Address [address] [place] [address] Support Name Relationship Address Phone QING DIANEHER Next of Kin [address] [place] [address] QING DIANEHER Emergency Contact [address] [place] [address] Selected Encounter This section includes the information on record at [place] for the Encounter. Date/Time Encounter Type Encounter Description Reason Provider Source Dec 07, 2023 10:30 AM OFFICE O/P EST LOW 20 MIN [facility] - IND ICD-10-CM F90.0 Attn-defct hyperactivity disorder, predom inattentive type ITALO JOINER Judith Encounter Template Text not used by [place] Assessments - Encounter Diagnoses This section includes the primary and secondary diagnoses documented for the Encounter. Date/Time Primary/Secondary Diagnosis Diagnosis Name Provider Source Dec 07, 2023 10:45 AM PRIMARY Attn-defct hyperactivity disorder, predom inattentive type MESFIN JOINER Plan of Treatment: Future Appointments (+ 6 months) and Future Tests (+/- 45 days) The Plan of Treatment section includes future care activities for the patient from all [place] treatmentfacilities. This section includes future appointments and future orders which are active, pending or scheduled. Future Appointments This section includes appointments that were scheduled to occur 6 months from the date of the Encounter, up to a maximum of 20 appointments. The data comes from all [place] treatment facilities. Appointment Date/Time Appointment Type Appointme nt Facility Name Dec 08, 2023 08:30 AM AMBULATORY - [facility] Dec 09, 2023 04:30 PM AMBULATORY - [facility]ICIN [facility] [place] [facility] Dec 31, 2023 10:30 AM AMBULATORY - REHAB MEDICIN [facility] [place] [facility] Jan 15, 2024 03:00 PM AMBULATORY - MEDICINE [place] Jan 20, 2024 04:30 PM AMBULATORY - REHAB MEDICIN E [facility] [place] [facility] Jan 21, 2024 08:30 AM AMBULATORY - REHAB MEDICIN [facility] [place] [facility] Feb 01, 2024 08:00 AM AMBULATORY - MEDICINE [facility] [place] [facility] Feb 02, 2024 04:00 PM AMBULATORY - NONE [facility] [place] [facility] Feb 04, 2024 09:30 AM AMBULATORY - PSYCHIATRY [facility] [place] [facility] Feb 09, 2024 04:30 PM AMBULATORY - REHAB MEDICIN E [facility] [place] [facility] Mar 28, 2024 03:00 PM AMBULATORY - MEDICINE [facility] [place] [facility] Apr 07, 2024 10:30 AM AMBULATORY - PSYCHIATRY [facility] [place] [facility] Active, Pending, and Scheduled Orders This section includes a listing of several types of active, pending, and scheduled orders, including clinic medications orders, diagnostic test orders, procedure orders and consult orders; where the start date of the order is 45 days before the date of the Encounter or 45 days after the date of theEncounter. The data comes from all [place] treatment facilities. Test Date/Time Test Type Test Details Facility Name Jan 15, 2024 03:28 PM Consult Order COMMUNITY CARE-[facility]THO SURGICAL Cons [employer] Supervisor's Choice [facility] Social History: Smoking Status (Most current) and Tobacco Use (All prior to encounter date) This section includes the most current, and the historical, smoking and tobacco- related health factors from the [place] facility where the Encounter took place. Current Smoking Status This section includes the most current smoking, or tobacco-related health factor, from the [place] facility where the Encounter took place. Date/Time Current Smoking Status Comment Facil ity July 16, 2023 08:30 AM [place]-TOBACCO NEVER USED [facility] Encounter Notes: All associated encounter notes This section contains the clinical notes associated to the Encounter. Date/Time Encounter Note(s) Provider Source Dec 07, 2023 10:30 AM TELEHEALTH NOTE: LOCAL TITLE: VA VIDEO CONNECT PSYCHIATRIST NOTE STANDARD TITLE: TELEHEALTH NOTE DATE OF NOTE: DEC 07, 2023@10:30 ENTRY DATE: DEC 07, 2023@10:31:44 AUTHOR: MESFIN JOINER COSIGNER: URGENCY: STATUS: COMPLETED VA Video Connect (VVC) Standard Documentation VVC Clinician Resources Only: E911 (Emergency Call Relay Center): [phone] National Veterans Crisis Line - 988 then press #1. [place] Suicide Coordinator [phone], Ext. [phone]; Back-up Ext. [phone] [place] Police, MARLENEWillow, Lotus [phone] Introduction: Visit is being conducted by [place] [facility]. [place] identified with 2 identifiers: [X] Full Name [X] Date of [ ] [place] ID Card Emergency Plan: [place] confirmed and/or provided the following information in case of emergency or technology failure. PATIENT PHONE - PHONE NUMBER [CELLULAR] - Is patient phone number correct, if not, enter below: 's phone number: MACK DIANE [address] [place], [place], [address] [place]'s present location and address for appointment: [address] [place] [address] 's emergency contact name and phone number: unchanged [place] reported that location is private and safe: Yes Informed Consent: [place] informed of the risks and benefits of Telehealth video care. has the right to refuse video services. If refuses video visit, a [id number] visit will be scheduled. verbalized consent for this video visit: Yes [place] provided consent for any other persons present [...] He is beginning a Bachelor's Degree at [employer]. He has 2 associates degrees. He [...] ), and feeling down and depressed. The [place] has no struggles with substance use. He [...] years to get to that point. Deployments: [employer], I felt like if I worked harder [...] before i got out. I was in [employer] Mar 2018- said she was leaving me [...] TIME OF INITIAL VISIT WITH MYSELF 08/11/23: [place] reports he was diagnosed with ADHD at the [facility] by Teofilo Velásquez a few months ago [...] usual? no Outpatient Treatment: Current: Teofilo at [facility]. He talks me off the ledge. Helps me maintain perspective. Tells me I'm normal. Prior: [id number], threw a chair against a wall, advertising strategist were called, and they said we had [...] not reminded of helicopter, mentor suicide, and mcc. The ending really spoiled everything. HISTORY: see record Occupation: Currently unemployed after retiring from the . Was unable to find work. Back in school now for a bachelors degree- [employer]. INITIAL ASSESSMENT/ DIAGNOSIS AND RECOMMENDATIONS: [place] presents with hx of recurrent depression and PTSD and appears to meet criteria for ADHD inattentive type which is what he feels he needs the most help with at this point. We reviewed options including Strattera vs stimulants. Given son's response to Concerta we agreed to try this. Understands this is a controlled substance, risks and warnings reviewed. NOTED AT LAST OP VISIT: reports Concerta worked really well for the first 2-3 weeks, I felt better, not achy, I could focus. Then it slowly tapered off. I can tell when I'm not taking it . PLAN: will increase dose to 54mg daily --------- PRESENTING SYMPTOMS AND CONDITION ON TODAY'S VISIT: [place] reports medicine is doing great. I can tell a difference when I'm out. I noticed an increased amount of focus. I think it works really well at this dose. REVIEW OF SYSTEMS MENTAL HEALTH: SLEEP: good now MOOD: good, depression it's eased, less days of feeling loss of motivation. When I get overwhelmed, or have an issue without a readily available solution I shut down and ignore it. Then things I need to do I cant bring myself to do , occurs with major stressors PTSD symptoms: denied ANXIETY: a lot of major life changes? I feel the anxiety is normal being stressed about things ANGER/IRRITABILITY/AGGRESSION: Denies SUBSTANCE USE: Alcohol: none Illegal/non-prescribed drugs: none TOBACCO: none WERNER/HYPOMANIA: None evident PSYCHOTIC FEATURES: None evident Suicidal Thoughts/Intent/plan: denied Social Status/ Stressors: no changes CURRENT PSYCH meds: concerta 54mg daily ADVERSE EFFECTS: denied MED REC: no changes reported, takes sriram, [...] CONDITION AND OVERALL PROGRESS TOWARD TREATMENT GOALS: with significant improvement with increased dose of concerta. Depression seems secondary to the ADHD. No changes desired or indicated. i. Severity of Illness: ()none (x )mild [...] discussed medication options: risks, side effects alternatives understood and accepted; answered patient questions PLAN [...] for a follow-up appointment with myself in: 8 weeks, sooner if needed Additional Follow-Up instructions: 1. Reinforced: If urgent treatment is needed, call [phone] or go to the nearest Emergency Room 2. To schedule or change an appointment, inquire about medication refills, etc: call office number during normal office hours /janet JOINER M.D. Signed: 12/07/2023 10:46 MESFIN JOINER Dec 07, 2023 10:15 AM ACCOUNTING OF DISC LOSURES NOTE: LOCAL TITLE: STATE PRESCRIPTION DRUG MONITORING PROGRAM STANDARD TITLE: ACCOUNTING OF DISCLOSURES NOTE DATE OF NOTE: DEC 07, 2023@10:15:47 ENTRY DATE: DEC 07, 2023@10:15:47 AUTHOR: MESFIN JOINER EXP COSIGNER: URGENCY: STATUS: COMPLETED This PDMP query was submitted by Mesfin Joiner The clinical justification for this PDMP query is to review controlled substances prescribed outside of the [facility], and any additional information that may become available, as an important component of standard clinical care, and in accordance with [facility] policy. Patient information was shared with the PDMP Appriss [place]. No prescription(s) for controlled substances outside the [facility] were found in the last 90 days. /janet JOINER M.D. Signed: 12/07/2023 10:22 MESFIN JOINER
--- OUTSIDE RECORDS SUMMARY | 2024-02-16 07:40 | XMS_ITS ---
Author Name [facility] [place] [facility] [place] Organization [facility] [place] Address [address] [place] [address] Support Name Relationship Address Phone HURTADOQING MAZARIEGOSHER Next of Kin [address] [place] [address] HURTADOQING MAZARIEGOSHER Emergency Contact [address] [place] [address] Selected Encounter This section includes the information on record at [place] for the Encounter. Date/Time Encounter Type Encounter Description Reason Provider Source Dec 31, 2023 10:30 AM KATELYNN MDLTY 1+ULTRASOUND EA 15 OCCUPATIONAL THERAPY ICD-10-CM M25.529 Pain in unspecified elbow TERRY CORONELE E IHE Encounter Template Text not used by [place] Assessments - Encounter Diagnoses This section includes the primary and secondary diagnoses documented for the Encounter. Date/Time Primary/Secondary Diagnosis Diagnosis Name Provider Source Dec 31, 2023 01:59 PM PRIMARY Pain in unspecified elbow TERRY CORONELE E [place] [facility] [place] [facility] Plan of Treatment: Future Appointments (+ 6 months) and Future Tests (+/- 45 days) The Plan of Treatment section includes future care activities for the patient from all [place] treatmentfacilities. This section includes future appointments and future orders which are active, pending or scheduled. Future Appointments This section includes appointments that were scheduled to occur 6 months from the date of the Encounter, up to a maximum of 20 appointments. The data comes from all [place] treatment facilities. Appointment Date/Time Appointment Type Appointme nt Facility Name Jan 15, 2024 03:00 PM AMBULATORY - MEDICINE [facility] Jan 20, 2024 04:30 PM AMBULATORY - REHAB MEDICIN E [place] [facility] [place] [facility] Jan 21, 2024 08:30 AM AMBULATORY - REHAB MEDICIN E [facility] [place] [facility] Feb 01, 2024 08:00 AM AMBULATORY - MEDICINE [facility] [place] [facility] Feb 02, 2024 04:00 PM AMBULATORY - NONE [facility] [place] [facility] Feb 04, 2024 09:30 AM AMBULATORY - PSYCHIATRY [facility] [place] [facility] Feb 09, 2024 04:30 PM AMBULATORY - REHAB MEDICIN E [facility] [place] [facility] Mar 28, 2024 03:00 PM AMBULATORY - MEDICINE [facility] [place] [facility] Apr 07, 2024 10:30 AM AMBULATORY - PSYCHIATRY [place] [facility] [place] [facility] Active, Pending, and Scheduled Orders This section includes a listing of several types of active, pending, and scheduled orders, including clinic medications orders, diagnostic test orders, procedure orders and consult orders; where the start date of the order is 45 days before the date of the Encounter or 45 days after the date of theEncounter. The data comes from all [place] treatment facilities. Test Date/Time Test Type Test Details Facility Name Jan 15, 2024 03:28 PM Consult Order [facility] Cons Insulator Cutter And Former's Choice BOW Encounter Notes: All associated encounter notes This section contains the clinical notes associated to the Encounter. Date/Time Encounter Note(s) Provider Source Dec 31, 2023 10:29 AM OCCUPATIONAL THERAPY NOTE: LOCAL TITLE: OCCUPATIONAL THERAPY STANDARD TITLE: OCCUPATIONAL THERAPY NOTE DATE OF NOTE: DEC 31, 2023@10:29 ENTRY DATE: DEC 31, 2023@10:29:08 AUTHOR: JEWELS CORONEL COSIGNER: URGENCY: STATUS: COMPLETED Initial Evaluation date: Sep Progress Note Date: Treatment #: 5 Treatment time: 30 minutes Diagnosis: Pain in unspecified Elbow(ICD-10-CM M25.529) Provider: Daryn BELL Treatment Precautions: Patient identified by full name and date of SUBJECTIVE: Pt reports that the L elbow still doesn't recover quickly. He reports wearing his counterforce brace AFTER working out. Pain Level: 3/10 at rest OBJECTIVE: THERAPEUTIC EXERCISE: MINUTES: MANUAL THERAPY: *mobilization/FDM/IASTM/Cup ping to L mobile wad/common extensor tendon MINUTES: 16 THERAPEUTIC DYNAMIC ACTIVITIES: MINUTES: NEUROMUSCULAR EDUCATION: MINUTES: OTHER: MINUTES: MODALITIES: *US 1.4 w/cm2 100% 3MHz over L mobile wad MINUTES: 8 [] Contraindication screen completed prior to modality [x] Skin intact pre/post SELF CARE/EDUCATION: MINUTES: Patient education was provided for all aspects of care during this clinical encounter. ASSESSMENT: pt tolerated tx well this date. discussed wearing counterforce brace during his workouts as well as during activities that may provoke pain. he v/u. he continues to feel tightness that is rather unrelenting. discuss cupping which he is interested in. he understands there will be ecchymosis that could last up to 72 hours; he v/u. pt reported decreased tightness throughout following tx. PLAN: pt scheduled a f/u in 3 weeks. pt is in agreement w/ this POC. /cherri/ Jewels Coronel, MS OTR/Elsa, CHT Occupational Therapist Signed: 12/31/2023 13:59 JEWELS CORONEL [facility]
--- OUTSIDE RECORDS SUMMARY | 2024-02-16 07:40 | XMS_ITS ---
Author Name [facility] [place] Organization [place] Address [address] [place] [id number] Support Name Relationship Address Phone BRYANT SRIRAM Next of Kin [address] [place] [address] SRIRAM HURTADO Emergency Contact [address] [place] [address] Selected Encounter This section includes the information on record at [place] for the Encounter. Date/Time Encounter Type Encounter Description Reason Pro vider Source Dec 28, 2023 09:57 AM Outpatient Encounter [facility] IHE Encounter Template Text not used by [...] Appointment Type Appointme nt Facility Name Dec 31, 2023 10:30 AM AMBULATORY - REHAB MEDICIN E [place] [facility] [place] [facility] Jan 15, 2024 03:00 PM AM[facility]ULATORY [facility] MEDICINE [facility] Jan 20, 2024 04:30 PM AMBULATORY - REHAB MEDICIN E [facility] [place] [facility] Jan 21, 2024 08:30 AM AMBULATORY - REHAB MEDICIN E [facility] [place] [facility] Feb 01, 2024 08:00 AM AMBULATORY - MEDICINE [place] [facility] [place] [place] [facility] Feb 02, 2024 04:00 PM AMBULATORY - NONE [place] [facility] [place] [facility] Feb 04, 2024 09:30 AM AMBULATORY - PSYCHIATRY [place] [facility] [place] [facility] Feb 09, 2024 04:30 PM AMBULATORY - REHAB MEDICIN E [facility] [place] [facility] Mar 28, 2024 03:00 PM AMBULATORY - MEDICINE [place] [facility] [place] [facility] Apr 07, 2024 10:30 AM [facility] Active, Pending, and Scheduled Orders [...] Jan 15, 2024 03:28 PM Consult Order [facility] Cons Ed Educational Aide's Choice KLEMME Encounter Notes: All associated encounter notes This section contains the clinical notes associated to the Encounter. Date/Time Encounter Note(s) Provider Source Dec 28, 2023 09:57 AM MENTAL HEALTH MEDI CATION MGT NOTE: LOCAL TITLE: MHC/MEDICATION REFIL NOTE STANDARD TITLE: MENTAL HEALTH MEDICATION MGT NOTE DATE OF NOTE: DEC 28, 2023@09:57 ENTRY DATE: DEC 28, 2023@09:58:06 AUTHOR: ZARINA PARTIDA EXP COSIGNER: URGENCY: STATUS: COMPLETED called office to request medications for mail please concerta was some available at this time. /cherri/ ZARINA PARTIDA ADVANCED MARBLE COPER Signed: 12/28/2023 10:05 Receipt Acknowledged By: 12/28/2023 10:41 /es/ GREGG MCCLELLAND Registered Nurse 12/28/2023 10:21 /es/ ZARINA SANTIZO M.D.
--- OUTSIDE RECORDS SUMMARY | 2024-02-16 07:40 | XMS_ITS ---
Author Name [facility] [place] [facility] [place] Organization [facility] [place] Address [address] [place] [id number] Support Name Relationship Address Phone HURTADO, SRIRAM Next of Kin [address] [place] [address] HURTADOQING MAZARIEGOSHER Emergency Contact [address] [place] [address] Selected Encounter This section includes the information on record at [place] for the Encounter. Date/Time Encounter Type Encounter Description Reason Provider Source Dec 09, 2023 04:30 PM THER IVNTJ EA ADDL 15 MIN SPEECH-LANGUAGE PATHOLOGY ICD-10-CM F90.0 Attn-defct hyperactivity disorder, predom inattentive type [facility]ERIA DAN [facility] Encounter Template Text not used by [place] Assessments - Encounter Diagnoses This section includes the primary and secondary diagnoses documented for the Encounter. Date/Time Primary/Secondary Diagnosis Diagnosis Name Provider Source Dec 09, 2023 05:11 PM PRIMARY Attn-defct hyperactivity disorder, predom inattentive type VALERIA DAN [place] [facility] [place] [facility] Dec 09, 2023 05:11 PM SECONDARY Cognitive communication deficit VALERIA DAN [place] [facility] [place] [facility] Dec 09, 2023 05:11 PM SECONDARY Encounter for other specified aftercare VALERIA DAN [place] [facility] [facility] Plan of Treatment: Future Appointments [...] REHAB MEDICIN E [place] [facility] [place] [facility] Jan 15, 2024 03:00 PM AMBULATORY - MEDICINE [facility] [place] Jan 20, 2024 04:30 PM AMBULATORY - REHAB MEDICIN E [facility] [place] [facility] Jan 21, 2024 08:30 AM AMBULATORY - REHAB MEDICIN E [facility] [place] [facility] Feb 01, 2024 08:00 AM AMBULATORY - MEDICINE [place] [facility] [place] [place] [facility] Feb 02, 2024 04:00 PM AMBULATORY - NONE [place] [facility] [place] [facility] Feb 04, 2024 09:30 AM AMBULATORY - PSYCHIATRY [facility] [place] [facility] Feb 09, 2024 04:30 PM AMBULATORY - REHAB MEDICIN E [facility] [place] [facility] Mar 28, 2024 03:00 PM AMBULATORY - MEDICINE [facility] [place] [place] [facility] Apr 07, 2024 10:30 AM AMBULATORY - PSYCHIATRY [facility] [place] [facility] Active, Pending, and Scheduled Orders This section includes a listing of several types of active, pending, and scheduled orders, including clinic medications orders, diagnostic test orders, procedure orders and consult orders; where the start date of the order is 45 days before the date of the Encounter or 45 days after the date of theEncounter. The data comes from all [place] treatment [facility]. Test Date/Time Test Type Test Details Facility Name Jan 15, 2024 03:28 PM Consult [facility] Cons Substitute Nurse's Choice [place] Encounter Notes: All associated encounter notes This section contains the clinical notes associated to the Encounter. Date/Time Encounter Note(s) Provider Source Dec 09, 2023 04:29 PM TELEHEALTH NOTE: LOCAL TITLE: VA VIDEO CONNECT TBI SPEECH STANDARD TITLE: TELEHEALTH NOTE DATE OF NOTE: DEC 09, 2023@16:29 ENTRY DATE: DEC 09, 2023@16:29:27 AUTHOR: VALERIA DAN EXP COSIGNER: URGENCY: STATUS: COMPLETED VA Video Connect (VVC) Standard Documentation VVC Clinician Resources Only: E911 (Emergency Call Relay Center): [phone] National Veterans Crisis Line - 988 then press #1. MARLENEWillow Suicide Coordinator [phone], Ext. [phone]; Back-up Ext. [phone] [place] Police, Lotus LUQUE [phone] Introduction: Visit is being conducted by [place] Video Connect. identified with 2 identifiers: [X] Full Name [X] Date of [ ] VA ID Card Emergency Plan: Ismay confirmed and/or provided the following information in case of emergency or technology failure. PATIENT PHONE - PHONE NUMBER [CELLULAR] - Is patient phone number correct, if not, enter below: Ismay's phone number: MACK HURTADO [address] [place] [address], [phone] 's present location and address for appointment: as listed 's emergency contact name and phone number: as listed reported that location is private and safe: Yes Informed Consent: Ismay informed of the risks and benefits of Telehealth video care. has the right to refuse video services. If refuses video visit, a [id number] visit will be scheduled. Ismay verbalized consent for this video visit: Yes Ismay provided consent for any other persons present [...] vision 4. Exposure to potentially hazardous substance ([facility] [id number]) 5. Ulnar nerve entrapment 6. Contact with and (suspected) exposure to other hazardous substances 7. Other Contact with and (Suspected) Exposures Hazardous to Health 8. Nasal Congestion 9. Postnasal drip Encounter time 41 mins O: The following was addressed during [...] the strategy. //Education with discussion of the STOP strategy to support cognitive function //Education with discussion and demonstration of the use of a digital voice recorder for studying. He indicated he would like to try this. The device was ordered through [employer]. GOAL Pt. will support cognitive function by [...] good progress on all goals. P: FAIZA 01/12/24 @ 4:30 pm /cherri/ Valeria Dan, PhD CCC-DUPLICATING MACHINE SERVICER, [facility] Speech-Language Pathologist Signed: 12/09/2023 17:11 VALERIA DAN [facility] [place] [facility]
--- OUTSIDE RECORDS SUMMARY | 2024-02-16 07:41 | XMS_ITS | Encounter Summary ---
Author Name Department of [place] Organization [place] Address [address] [place] [address] Support Name Relationship Address Phone HURTADOQING MAZARIEGOSHER Next of Kin [address] [place] [address] HURTADOQING MAZARIEGOSHER Emergency Contact [address] [place] [address] Selected Encounter This section includes the information on record at [place] for the Encounter. Date/Time Encounter Type Encounter Description Reason Pro vider Source Jan 06, 2024 02:29 PM Outpatient Encounter PRIMARY CARE/MEDICINE IHE Encounter [...] 2024 03:00 PM AMBULATORY - MEDICINE [facility] Jan 20, 2024 04:30 PM AMBULATORY - REHAB MEDICIN E [place] [facility] [place] [facility] Jan 21, 2024 08:30 AM AMBULATORY - REHAB MEDICIN E [place] [facility] [place] [facility] Feb 01, 2024 08:00 AM AMBULATORY - MEDICINE [place] [facility] [place] [place] [facility] Feb 02, 2024 04:00 PM AMBULATORY - NONE [place] [facility] [place] [facility] Feb 04, 2024 09:30 AM AMBULATORY - PSYCHIATRY [place] [facility] [place] [facility] Feb 09, 2024 04:30 PM AMBULATORY - REHAB MEDICIN E [place] [facility] [place] [facility] Mar 28, 2024 03:00 PM [facility] Apr 07, 2024 10:30 AM [facility] Active, Pending, and Scheduled Orders This section includes a listing of several types of active, pending, and scheduled orders, including clinic medications orders, diagnostic test orders, procedure orders and consult orders; where the start date of the order is 45 days before the date of the Encounter or 45 days after the date of theEncounter. The data comes from all [place] treatment facilities. Test Date/Time Test Type Test Details Facility Name Jan 15, 2024 03:28 PM Consult Order [facility] Cons Director Nursing Service's Choice GRACEY Radiology Reports: +/- 30 days of the [...] treatment facilities. Date/Time Radiology Report Provider Source Feb 01, 2024 09:32 AM SHOULDER,COMPLETE( RIGHT): MACK HURTADO Dulce [id number] -1975 M Ex Date: FEB 01, 2024@09:32 Req Phys: SCOUT CROWLEY Pat Loc: CWM/NO/MED REHAB 1 PA (Req'g L Img Loc: [facility]/BUILDING 1 Service: Unknown [place] [facility] [place] [address] (Case 14 COMPLETE) SHOULDER,COMPLETE(RIGHT) (RAD Detailed) CPT:04975 Reason for Study: right shoulder pain Clinical History: Report Status: Verified Date Reported: FEB 01, 2024 Date Verified: FEB 01, 2024 Medical Technologist Blood Bank E-Sig:/ES/JESS ALVAREZ JR Report: Study: AP internally and externally rotated and Axillary views of the right shoulder. Comparison: None. Findings: The visualized lung and ribs appear normal. The bony mineralization is normal. Multiple calcified right axillary lymph nodes are present. There is faint cortical irregularity of the distal clavicle present. In the correct clinical scenario, this can be seen with distal clavicular osteolysis with many etiologies possible including posttraumatic or metabolic. Clinical correlation with the site of pain is recommended. The glenohumeral joint space appears normal. No abnormal soft tissue calcifications are identified that would indicate calcific tendinopathy or calcific bursitis. There is no bony fracture, dislocation or subluxation. Impression: Distal clavicle finding requiring clinical correlation, as described above. Primary Diagnostic Code: No immediate attention required Primary Interpreting Staff: JESS ALVAREZ JR, Radiologist (Medical Technologist Blood Bank) /JESS JARAMILLO JR [facility] Feb 01, 2024 09:32 AM ELBOW 3 OR MORE VIEWS(LEFT): MACK HURTADO Dulce [id number] -1975 M Ex Date: FEB 01, 2024@09:32 Req Phys: SCOUT CROWLEY Pat Loc: CWM/NO/MED REHAB 1 [place] (Req'g L Img Loc: [facility] 1 Service: Unknown [facility] [place] [address] (Case 15 COMPLETE) ELBOW 3 OR MORE VIEWS(LEFT) (RAD Detailed) CPT:92323 Reason for Study: left elbow pain Clinical History: Report Status: Verified Date Reported: FEB 01, 2024 Date Verified: FEB 01, 2024 Medical Technologist Blood Bank E-Sig:/ES/JESS ALVAREZ JR Report: Study: AP, lateral and oblique views of the left elbow. Comparison: None. Findings: Minimal soft tissue swelling is seen around the olecranon process of the ulna which can be seen with olecranon bursitis. No radiopaque foreign body is identified. No joint space erosions are seen. The bony mineralization appears normal. The elbow joint spaces are normal and well-maintained. No acute bony abnormality is seen. If the patient continues to have pain, or an occult fracture is suspected, repeat radiographs in 7-10 days are recommended. Impression: No acute bony abnormality, as described above. Primary Diagnostic Code: No immediate attention required Primary Interpreting Staff: JESS ALVAREZ JR, Radiologist (Medical Technologist Blood Bank) /JESS JARAMILLO JR [place] [facility] Encounter Notes: All associated encounter notes This section contains the clinical notes associated to the Encounter. Date/Time Encounter Note(s) Provider Source Jan 06, 2024 02:31 PM PHYSICIAN ASSISTLEIGHTON Thomas NOTE: LOCAL TITLE: [place] NOTE STANDARD TITLE: PHYSICIAN SAS ANALYST NOTE DATE OF NOTE: JAN 06, 2024@14:31 ENTRY DATE: JAN 06, 2024@14:31:54 AUTHOR: MARTI BUTLER COSIGNER: URGENCY: STATUS: COMPLETED [place] NOTE Has ADDENDA please make appt jan 23 no labs need to review nerve test /cherri/ MARTI BUTLER PA-C STAFF PHYSICIAN SAS ANALYST Signed: 01/06/2024 14:32 Receipt Acknowledged By: 01/07/2024 10:35 /cherri/ SIMRAN KULKARNI Advanced Manager Basketball 01/07/2024 ADDENDUM STATUS: COMPLETED Appt 01/15/24 /cherri/ SIMRAN KULKARNI Advanced Manager Basketball Signed: 01/07/2024 10:36 MARTI BUTLER
--- OUTSIDE RECORDS SUMMARY | 2024-02-16 07:42 | XMS_ITS ---
Author Name [facility] [place] Organization [place] Address [address] [place] [id number] Support Name Relationship Address Phone HURTADO, SRIRAM Next of Kin [address] [place] [address] HURTADO, SRIRAM Emergency Contact [address] [place] [address] Selected Encounter This section includes the information on record at [place] for the Encounter. Date/Time Encounter Type Encounter Description Reason Provider Source Jan 20, 2024 04:30 PM THER IVNTJ EA ADDL 15 MIN POLYTRAUMA/TBI IND ICD-10-CM F90.0 Attn-defct hyperactivity disorder, predom inattentive type VALERIA DAN [facility] Encounter Template Text not used by [place] Assessments - Encounter Diagnoses This section includes the primary and secondary diagnoses documented for the Encounter. Date/Time Primary/Secondary Diagnosis Diagnosis Name Provider Source Jan 20, 2024 04:53 PM PRIMARY Attn-defct hyperactivity disorder, predom inattentive type VALERIA DAN [place] [facility] [place] [facility] Jan 20, 2024 04:53 PM SECONDARY Cognitive communication deficit VALERIA DAN [place] [facility] [place] [facility] Plan of Treatment: Future Appointments (+ 6 months) and Future Tests (+/- 45 days) The Plan of Treatment section includes future care activities for the patient from all [place] treatmentfacilities. This section includes future appointments and future orders which are active, pending or scheduled. Future Appointments This section includes appointments that were scheduled to occur 6 months from the date of the Encounter, up to a maximum of 20 appointments. The data comes from all [place] treatment facilities. Appointment Date/Time Appointment Type Appointme nt Facility Name Jan 21, 2024 08:30 AM AMBULATORY - REHAB MEDICIN E [facility] [place] [facility] Feb 01, 2024 08:00 AM AMBULATORY - MEDICINE [place] [facility] [place] [facility] Feb 02, 2024 04:00 PM AMBULATORY - NONE [facility] [place] [facility] Feb 04, 2024 09:30 AM AMBULATORY - PSYCHIATRY [facility] [place] [facility] Feb 09, 2024 04:30 PM AMBULATORY - REHAB MEDICIN E [facility] [place] [facility] Mar 28, 2024 03:00 PM AMBULATORY - MEDICINE [place] [facility] [place] [facility] Apr 07, 2024 10:30 AM AMBULATORY - PS[place]CHIATRY [place] [facility] [place] [facility] Active, Pending, and Scheduled Orders This section includes a listing of several types of active, pending, and scheduled orders, including clinic medications orders, diagnostic test orders, procedure orders and consult orders; where the start date of the order is 45 days before the date of the Encounter or 45 days after the date of theEncounter. The data comes from all [facility]. Test Date/Time Test Type Test Details Facility Name Jan 15, 2024 03:28 PM Consult Order [facility] SURGICAL Cons [facility] [place] Radiology Reports: +/- 30 days of the [...] the Encounter. The data comes from all [facility]. Date/Time Radiology Report Provider Source Feb 01, 2024 09:32 AM SHOULDER,COMPLETE( RIGHT): MACK HURTADO [id number] -1975 M Ex Date: FEB 01, 2024@09:32 Req Phys: SCOUT CROWLEY Pat Loc: [facility]/NO/MED REHAB 1 PA (Req'g L Img Loc: [facility]/BUILDING 1 Service: Unknown [place] [address] (Case 14 COMPLETE) SHOULDER,COMPLETE(RIGHT) (RAD Detailed) CPT:37817 Reason for Study: right shoulder pain Clinical History: Report Status: Verified Date Reported: FEB 01, 2024 Date Verified: FEB 01, 2024 Laboratory Geneticist E-Sig:/ES/JESS ALVAREZ JR Report: Study: AP internally [...] Primary Interpreting Staff: JESS ALVAREZ JR, Radiologist (Laboratory Geneticist) /EAD JESS ALVAREZ JR [facility] Feb 01, 2024 09:32 AM ELBOW 3 OR MORE VIEWS(LEFT): MACK HURTADO [id number] -1975 M [facility] Date: FEB 01, 2024@09:32 Req Phys: SCOUT CROWLEY Pat Loc: [place]/NO/MED REHAB 1 PA (Req'g L Img Loc: [facility] 1 Service: [place] [address] (Case 15 COMPLETE) ELBOW 3 OR MORE VIEWS(LEFT) (RAD Detailed) CPT:85859 Reason for Study: left elbow pain Clinical History: Report Status: Verified Date Reported: FEB 01, 2024 Date Verified: FEB 01, 2024 Laboratory Geneticist E-Sig:/ES/JESS ALVAREZ JR Report: Study: AP, lateral [...] Primary Interpreting Staff: JESS ALVAREZ JR, Radiologist (Laboratory Geneticist) /JESS JARAMILLO JR [place] [facility] [place] [facility] Encounter Notes: All associated encounter notes This section contains the clinical notes associated to the Encounter. Date/Time Encounter Note(s) Provider Source Jan 20, 2024 04:34 PM TELEHEALTH NOTE: LOCAL TITLE: [employer] TBI SPEECH STANDARD TITLE: TELEHEALTH NOTE DATE OF NOTE: JAN 20, 2024@16:34 ENTRY DATE: JAN 20, 2024@16:34:20 AUTHOR: VALERIA DAN COSIGNER: URGENCY: STATUS: COMPLETED [employer] Video Connect (VVC) Standard Documentation VVC Clinician Resources Only: E911 (Emergency Call Relay Center): [phone] [facility] Crisis Line - 988 then press #1. [facility] Suicide Coordinator [phone], Ext. [phone]; Back-up Ext. [phone] [place] Police, Lotus LUQUE [phone] Introduction: Visit is being conducted by [facility]. [place] identified with 2 identifiers: [X] Full Name [X] Date of [ ] [place] ID Card Emergency Plan: [place] confirmed and/or provided the following information in case of emergency or technology failure. PATIENT PHONE - PHONE NUMBER [CELLULAR] - Is patient phone number correct, if not, enter below: 's phone number: MACK HURTADO [address], [place], [address] 's present location and address for appointment: as listed 's emergency contact name and phone number: as listed reported that location is private and safe: Yes Informed Consent: informed of the risks and benefits of Telehealth video care. [place] has the right to refuse video services. If refuses video visit, a [id number] visit will be scheduled. [place] verbalized consent for this video visit: Yes provided consent for any other persons present for visit: N/A If yes, who and relationship to patient: Secure visit: Visit was locked for security and privacy: Yes S: Pt seen today via [facility] for cognitive-communication therapy. Active problems - Computerized Problem List is the source for the followin. 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 Blurred vision 4. Exposure to potentially hazardous substance ([facility] [id number]) 5. Ulnar nerve entrapment 6. Contact with and (suspected) exposure to other hazardous substances 7. Other Contact with and (Suspected) Exposures Hazardous to Health 8. Nasal Congestion 9. Postnasal drip Encounter time 31 mins O: The following was addressed during this encounter: //Review of the Pomodoro Technique for studying/working/organizin g and procrastination. He is still working on making this a habit and has realized he needs to use a physical timer rather than a timer on his phone. He is ordering 2 timers today, one for home and one for work. //Review of Timeboxing. Mack has been using this strategy for school with good success. //Education with discussion of the types of attention and what supports attention (interest, consequence, etc). Mack participated well in the conversation. //Review of the use of the digital voice recorder to support memory, GOAL Pt. will support cognitive function by [...] making good progress on all goals. P: RTC 02/09/24 @ 4:30 pm /cherri/ Valeria Dan, PhD CCC-EMPLOYMENT COUNSELOR, [facility] Speech-Language Pathologist Signed: 01/20/2024 17:02 VALERIA DAN [place] [facility]
--- OUTSIDE RECORDS SUMMARY | 2024-02-16 07:42 | XMS_ITS | Encounter Summary ---
Author Name [facility] [place] Organization [place] Address [address] [place] [address] Support Name Relationship Address Phone HURTADOQING MAZARIEGOSHER Next of Kin [address] [place] [address] BRYANTQINGSRIRAM Emergency Contact [address] [place] [address] Selected Encounter This section includes the information on record at [place] for the Encounter. Date/Time Encounter Type Encounter Description Reason Pro vider Source Sep 25, 2023 12:00 AM Outpatient Encounter [facility]ITY [facility]ARE [...] 28, 2023 11:00 AM AMBULATORY - MEDICINE [place] [facility] [place] [facility] Oct 01, 2023 03:30 PM AMBULATORY - REHAB MEDICIN E [facility] [place] [facility] Oct 05, 2023 11:00 AM AMBULATORY - MEDICINE [place] [facility] [facility] Oct 06, 2023 04:30 PM AMBULATORY - REHAB MEDICIN E [facility] [place] [facility] Oct 13, 2023 04:30 PM AMBULATORY - REHAB MEDICIN E [facility] [place] [facility] Oct 15, 2023 01:30 PM AMBULATORY - REHAB MEDICIN E [facility] [place] [facility] Oct 26, 2023 11:00 AM AMBULATORY - MEDICINE [place] [facility] [place] [facility] Oct 26, 2023 03:30 PM AMBULATORY - MEDICINE [place] [facility] [place] [facility] Oct 27, 2023 04:30 PM AMBULATORY - REHAB MEDICIN E [facility] [place] [facility] Nov 05, 2023 03:00 PM AMBULATORY - REHAB MEDICIN E [facility] [place] [facility] Nov 19, 2023 04:30 PM AMBULATORY - REHAB MEDICIN E [facility] [place] [facility] Nov 25, 2023 02:30 PM AMBULATORY - REHAB MEDICIN E [facility] [place] [facility] Dec 07, 2023 10:30 AM AMBULATORY - PSYCHIATRY [facility] [place] [facility] Dec 08, 2023 08:30 AM AMBULATORY - REHAB MEDICIN E [facility] [place] [facility] Dec 09, 2023 04:30 PM AMBULATORY - REHAB MEDICIN E [facility] [place] [facility] Dec 31, 2023 10:30 AM AMBULATORY - REHAB MEDICIN E [facility] [place] [facility] Jan 15, 2024 03:00 PM AMBULATORY [facility] Jan 20, 2024 04:30 PM AMBULATORY - REHAB MEDICIN E [facility] [place] [facility] Jan 21, 2024 08:30 AM AMBULATORY - REHAB MEDICIN E [facility] [place] [facility] Feb 01, 2024 08:00 AM AMBULATORY - MEDICINE [place] [facility] [facility] Active, Pending, and Scheduled Orders [...] - Chemi arely Order CALCIUM BLOOD (SST-SERUM) [facility] Aug 30, 2023 12:00 AM Laboratory - Chemi stry Order URIC ACID BLOOD (SST-SERUM) [facility] Aug 30, 2023 12:00 AM Laboratory - Chemi stry Order PSA BLOOD (SST-SERUM) [facility] Aug 30, 2023 12:00 AM Laboratory - Chemi stry Order FERRITIN BLOOD (SST-SERUM) [facility] Aug 30, 2023 12:00 AM Laboratory - Chemi stry Order VITAMIN D (25-OH) BLOOD (SST-SERUM) [facility] Aug 30, 2023 12:00 AM Laboratory - Chemi stry Order VITAMIN B12 BLOOD (SST-SERUM) [facility] Aug 30, 2023 12:00 AM Laboratory - Chemi stry Order BASIC METABOLIC PANEL (fasting) BLOOD (SST-SERUM) [facility] Aug 30, 2023 12:00 AM Laboratory - Chemi stry Order LIPID PANEL FASTING BLOOD (SST-SERUM) [facility] Aug 30, 2023 12:00 AM Laboratory - Chemi stry Order LIVER FUNCTION BLOOD (SST-SERUM) [facility] Aug 30, 2023 12:00 AM Laboratory - Chemi stry Order CBC AND DIFF (AUTO) BLOOD (LAV-BLOOD) [facility] Aug 30, 2023 12:00 AM Laboratory - Chemi stry Order HEMOGLOBIN A1C PANEL BLOOD (LAV-BLOOD) [facility] Aug 30, 2023 12:00 AM Laboratory - Chemi stry Order TSH BLOOD (SST-SERUM) [facility] Encounter Notes: All associated encounter notes This section contains the clinical notes associated to the Encounter. Date/Time Encounter Note(s) Provider Source Sep 25, 2023 12:00 AM NONVA CONSULT: LOCAL TITLE: COMMUNITY CARE-CONSULT RESULT NOTE STANDARD TITLE: NONVA CONSULT DATE OF NOTE: SEP 25, 2023 ENTRY DATE: JAN 06, 2024@15:06:28 AUTHOR: VIRIDIANA LEYVA EXP COSIGNER: URGENCY: STATUS: COMPLETED VistA Imaging - Scanned Document SCANNED DOCUMENT SIGNATURE NOT REQUIRED Electronically Filed: 01/06/2024 by: VIRIDIANA LEYVA LICENSED PRACTICAL NURSE VIRIDIANA LEYVA [place] [facility]
--- OUTSIDE RECORDS SUMMARY | 2024-02-16 07:42 | XMS_ITS ---
Author Name Department of [place] Organization [place] Address [address] [place] [address] Support Name Relationship Address Phone HURTADO, SRIRAM Next of Kin [address] [place] [address] SRIRAM HURTADO Emergency Contact [address] [place] [address] Selected Encounter This section includes the information on record at [place] for the Encounter. Date/Time Encounter Type Encounter Description Reason Pro vider Source Jan 25, 2024 09:09 AM Outpatient Encounter PM&RS PHYSICIAN IHE Encounter Template Text not used by [place] Plan of Treatment: Future Appointments (+ 6 months) and Future Tests (+/- 45 days) The Plan of Treatment section includes future care activities for the patient from all [place] treatmentfacilities. This section includes future appointments and future orders which are active, pending or scheduled. Future Appointments This section includes appointments that were scheduled to occur 6 months from the date of the Encounter, up to a maximum of 20 appointments. The data comes from all [place] treatment facilities. Appointment Date/Time Appointment Type Appointme nt Facility Name Feb 01, 2024 08:00 AM AMBULATORY - MEDICINE [place] [facility] [place] [facility] Feb 02, 2024 04:00 PM AMBULATORY - NONE [place] [facility] [place] [facility] Feb 04, 2024 09:30 AM AMBULATORY - PSYCHIATRY [facility] [place] [facility] Feb 09, 2024 04:30 PM AMBULATORY - REHAB MEDICIN E [facility] [place] [facility] Mar 28, 2024 03:00 PM AMBULATORY - MEDICINE [place] [facility] [place] [facility] Apr 07, 2024 10:30 AM AMBULATORY - PS[facility]CHI[facility]RY [facility] Active, Pending, and Scheduled Orders This section includes a listing of several types of active, pending, and scheduled orders, including clinic medications orders, diagnostic test orders, procedure orders and consult orders; where the start date of the order is 45 days before the date of the Encounter or 45 days after the date of theEncounter. The data comes from all [facility]. Test Date/Time Test Type Test Details Facility Name Jan 15, 2024 03:28 PM Consult Order [facility] SURGICAL Cons [facility] [place] Radiology Reports: +/- 30 days of the [...] the Encounter. The data comes from all [facility]. Date/Time Radiology Report Provider Source Feb 01, 2024 09:32 AM SHOULDER,COMPLETE( RIGHT): HURTADOMACK Dulce [id number] -1975 M [facility] Date: FEB 01, 2024@09:32 Req Phys: SCOUT CROWLEY Loc: [facility]/NO/MED REHAB 1 PA (Req'g L Img Loc: [facility] 1 Service: [place] [facility] [address] (Case 14 COMPLETE) SHOULDER,COMPLETE(RIGHT) (RAD Detailed) CPT:80240 Reason for Study: right shoulder pain Clinical History: Report Status: Verified Date Reported: FEB 01, 2024 Date Verified: FEB 01, 2024 Nurse Aide E-Sig:/ES/JESS ALVAREZ JR Report: Study: AP internally [...] Primary Interpreting Staff: JESS ALVAREZ JR, Radiologist (Nurse Aide) /JESS JARAMILLO JR [facility] Feb 01, 2024 09:32 AM ELBOW 3 OR MORE VIEWS(LEFT): MACK HURTADO [id number] -1975 M Exm Date: FEB 01, 2024@09:32 Req Phys: SCOUT CROWLEY Loc: [facility]/NO/MED REHAB 1 PA (Req'g L Img Loc: [facility] 1 Service: [place] [address] (Case 15 COMPLETE) ELBOW 3 OR MORE VIEWS(LEFT) (RAD Detailed) CPT:25551 Reason for Study: left elbow pain Clinical History: Report Status: Verified Date Reported: FEB 01, 2024 Date Verified: FEB 01, 2024 Nurse Aide E-Sig:/ES/JESS ALVAREZ JR Report: Study: AP, lateral [...] Primary Interpreting Staff: JESS ALVAREZ JR, Radiologist (Nurse Aide) /JESS JARAMILLO JR [facility] Encounter Notes: All associated encounter notes This section contains the clinical notes associated to the Encounter. Date/Time Encounter Note(s) Provider Source Jan 25, 2024 09:09 AM LETTERS: LOCAL TITLE: PATIENT LETTER (B) STANDARD TITLE: LETTERS DATE OF NOTE: JAN 25, 2024@09:09 ENTRY DATE: JAN 25, 2024@09:09:37 AUTHOR: KIYA MARADIAGA EXP COSIGNER: URGENCY: STATUS: COMPLETED JAN 25, 2024 MACK HURTADO [address] [place] [id number] Dear MACK HURTADO We would like to assist you in scheduling a [place]ICAL [place]HAB appointment at the [place]. We have been unable to reach you by phone. To schedule this appointment please call toll free Ext [phone]. Our booking appointment hours are Thursday through Thursday from 8:00 am to 4:00 pm. Please leave a message if you receive voicemail and let us know a good time and telephone number where we can reach you. If we dont hear back from you within 14 days from the date of this letter we will discontinue the request. If you have already scheduled this appointment, please disregard this letter. Your health is important to us. Sincerely, [facility] [address] [facility] [address] [place] [address] [place] [address] ext. [phone] [facility] [address] [facility] [address] [place] [address] [place] [address] [phone] [facility] [address] [address] [place] [address] ext. [phone] [facility] [address] [place] [address] ext. [phone] KIYA MARADIAGA [place] [facility]
--- OUTSIDE RECORDS SUMMARY | 2024-02-16 07:42 | XMS_ITS ---
Author Name [facility] [place] Organization [facility] [facility] [place] Address [address] [place] [id number] Support Name Relationship Address Phone HURTADO, SRIRAM Next of Kin [address] [place] [address] HURTADOQING MAZARIEGOSHER Emergency Contact [address] [place] [address] Selected Encounter This section includes the information on record at [place] for the Encounter. Date/Time Encounter Type Encounter Description Reason Provider Source Jan 21, 2024 08:30 AM KATELYNN MDLTY 1+ULTRASOUND EA 15 OCCUPATIONAL THERAPY ICD-10-CM M25.529 Pain in unspecified elbow TERRY CORONELE E IHE Encounter Template Text not used by [place] Assessments - Encounter Diagnoses This section includes the primary and secondary diagnoses documented for the Encounter. Date/Time Primary/Secondary Diagnosis Diagnosis Name Provider Source Jan 21, 2024 12:44 PM PRIMARY Pain in unspecified elbow JEWELS CORONEL E [facility] Plan of Treatment: Future Appointments [...] 01, 2024 08:00 AM AMBUL[facility] - [facility] Feb 02, 2024 04:00 PM AMBULATORY - NONE [place] [facility] [place] [facility] Feb 04, 2024 09:30 AM [facility]UL[facility] Feb 09, 2024 04:30 PM AMBULATORY - [facility] Mar 28, 2024 03:00 PM AMBULATORY - MEDICINE [facility] NTRL TRN [facility] Apr 07, 2024 10:30 AM AMBULATORY - PS[facility]CHIATRY [facility] Active, Pending, and Scheduled Orders This section includes a listing of several types of active, pending, and scheduled orders, including clinic medications orders, diagnostic test orders, procedure orders and consult orders; where the start date of the order is 45 days before the date of the Encounter or 45 days after the date of theEncounter. The data comes from all [facility]. Test Date/Time Test Type Test Details Facility Name Jan 15, 2024 03:28 PM Consult Order [facility] SURGICAL Cons [facility] [place] Radiology Reports: +/- 30 days of the [...] the Encounter. The data comes from all [facility]. Date/Time Radiology Report Provider Source Feb 01, 2024 09:32 AM SHOULDER,COMPLETE( RIGHT): MACK HURTADO [id number] -1975 [facility] Date: FEB 01, 2024@09:32 Req Phys: SCOUT CROWLEY Loc: CWM/NO/MED REHAB 1 PA (Req'g L Img Loc: [facility] 1 Service: Unknown [facility] [place] [address] (Case 14 COMPLETE) SHOULDER,COMPLETE(RIGHT) (RAD Detailed) CPT:34374 Reason for Study: right shoulder pain Clinical History: Report Status: Verified Date Reported: FEB 01, 2024 Date Verified: FEB 01, 2024 Welt Pocket Machine Operator E-Sig:/ES/JESS ALVAREZ JR Report: Study: AP internally [...] Primary Interpreting Staff: JESS ALVAREZ JR, Radiologist (Welt Pocket Machine Operator) /JESS JARAMILLO JR [facility] Feb 01, 2024 09:32 AM ELBOW 3 OR MORE VIEWS(LEFT): BRYANTMACK Dulce [id number] -1975 [facility] Date: FEB 01, 2024@09:32 Req Phys: SCOUT CROWLEY Pat Loc: CWM/NO/MED REHAB 1 PA (Req'g L Img Loc: [facility] 1 Service: [place] [address] (Case 15 COMPLETE) ELBOW 3 OR MORE VIEWS(LEFT) (RAD Detailed) CPT:03658 Reason for Study: left elbow pain Clinical History: Report Status: Verified Date Reported: FEB 01, 2024 Date Verified: FEB 01, 2024 Welt Pocket Machine Operator E-Sig:/ES/JESS ALVAREZ JR Report: Study: AP, lateral [...] Primary Interpreting Staff: JESS ALVAREZ JR, Radiologist (Welt Pocket Machine Operator) /EAJESS LOPEZ JR [place] [facility] Encounter Notes: All associated encounter notes This section contains the clinical notes associated to the Encounter. Date/Time Encounter Note(s) Provider Source Jan 23, 2024 03:33 PM ADDENDUM: LOCAL TITLE: Addendum STANDARD TITLE: ADDENDUM DATE OF NOTE: JAN 23, 2024@15:33:03 ENTRY DATE: JAN 23, 2024@15:33:04 AUTHOR: MACK DEAN EXP COSIGNER: URGENCY: STATUS: COMPLETED Please include programs manager for requests. /cherri/ MACK DEAN NP NURSE PRACTITIONER Signed: 01/23/2024 15:33 Receipt Acknowledged By: 01/25/2024 08:09 /cherri/ SORAYA LÓPEZ REGISTERED NURSE 01/25/2024 08:43 /es/ Jewels Coronel MS OTR/L, CHT Occupational Therapist --- Original Document --- 01/21/24 OCCUPATIONAL THERAPY: Initial Evaluation date: Sep Progress Note Date: Treatment #: 6 Treatment time: 30 minutes Diagnosis: Pain in unspecified Elbow(ICD-10-CM M25.529) Provider: Daryn OT Treatment Precautions: Patient identified by full name and date of SUBJECTIVE: Pt reports that the elbow is ok. He thinks the elbow braces are helping. The cupping seemed to help. Pain Level: 3/10 at rest OBJECTIVE: THERAPEUTIC [...] ASSESSMENT: pt tolerated tx well this date. he notes short lived improvement following his last session. tightness and ttp at lateral mobile wad. performed cupping again. discussed CSI which pt has never had. he is interested in being referred to physiatry for this. PLAN: no further f/u scheduled at this time. pt will reach out to this contract technical writer should he need another appointment. pt is in agreement w/ this POC. /cherri/ Jewels Coronel, [place] OTR/L, CHT Occupational Therapist Signed: 01/21/2024 12:44 01/21/2024 ADDENDUM STATUS: COMPLETED Pt is interested in being referred for a cortisone injection. Please place consult if in agreement. He has plateaued w/ therapy. Thank you! /janet Coronel, [place] OTR/L, CHT Occupational Therapist Signed: 01/21/2024 12:45 Receipt Acknowledged By: 01/23/2024 15:32 /cherri/ MACK DEAN NP NURSE PRACTITIONER MACK DEAN [place] [facility] [place] [facility] Jan 21, 2024 07:20 AM OCCUPATIONAL THERAPY NOTE: LOCAL TITLE: OCCUPATIONAL THERAPY STANDARD TITLE: OCCUPATIONAL THERAPY NOTE DATE OF NOTE: JAN 21, 2024@07:20 ENTRY DATE: JAN 21, 2024@07:20:20 AUTHOR: JEWELS CORONEL COSIGNER: URGENCY: STATUS: COMPLETED OCCUPATIONAL THERAPY Has ADDENDA Initial Evaluation date: Sep Progress Note Date: Treatment #: 6 Treatment time: 30 minutes Diagnosis: Pain in unspecified Elbow(ICD-10-CM M25.529) Provider: Daryn BELL Treatment Precautions: Patient identified by full name and date of SUBJECTIVE: Pt reports that the elbow is ok. He thinks the elbow braces are helping. The cupping seemed to help. Pain Level: 3/10 at rest OBJECTIVE: THERAPEUTIC [...] ASSESSMENT: pt tolerated tx well this date. he notes short lived improvement following his last session. tightness and ttp at lateral mobile wad. performed cupping again. discussed CSI which pt has never had. he is interested in being referred to physiatry for this. PLAN: no further f/u scheduled at this time. pt will reach out to this contract technical writer should he need another appointment. pt is in agreement w/ this POC. /cherri/ Jewels Coronel, [place] OTR/L, CHT Occupational Therapist Signed: 01/21/2024 12:44 01/21/2024 ADDENDUM STATUS: COMPLETED Pt is interested in being referred for a cortisone injection. Please place consult if in agreement. He has plateaued w/ therapy. Thank you! /janet Coronel, [place] OTR/L, CHT Occupational Therapist Signed: 01/21/2024 12:45 Receipt Acknowledged By: 01/23/2024 15:32 /cherri/ MACK DEAN NP NURSE PRACTITIONER 01/23/2024 ADDENDUM STATUS: COMPLETED Please include programs manager for requests. /janet DEAN NP NURSE PRACTITIONER Signed: 01/23/2024 15:33 Receipt Acknowledged By: * AWAITING SIGNATURE * SORAYA LÓPEZ * AWAITING SIGNATURE * JEWELS CORONEL ASHLIE E [facility]
--- OUTSIDE RECORDS SUMMARY | 2024-02-16 07:42 | XMS_ITS | Encounter Summary ---
Author Name [facility] [place] Organization [facility] [place] [facility] [place] Address [address] [place] [id number] Support Name Relationship Address Phone SRIRAM HURTADO Next of Kin [address] [place] [address] QING HURTADOHER Emergency Contact [address] [place] [address] Selected Encounter This section includes the information on record at [place] for the Encounter. Date/Time Encounter Type Encounter Description Reason Provider Source Jan 15, 2024 03:00 PM OFFICE O/P EST LOW 20 MIN PRIMARY CARE/MEDICINE ICD-10-CM G56.00 Carpal tunnel syndrome, unspecified upper limb MARTI BUTLER Judith Encounter Template Text not used by [place] Assessments - Encounter Diagnoses This section includes the primary and secondary diagnoses documented for the Encounter. Date/Time Primary/Secondary Diagnosis Diagnosis Name Provider Source Jan 15, 2024 03:40 PM PRIMARY Carpal tunnel syndrome, unspecified upper limb MARTI BUTLER Plan of Treatment: Future Appointments (+ 6 [...] Appointment Type Appointme nt Facility Name Jan 20, 2024 04:30 PM AMBULATORY - REHAB MEDICIN E [place] [facility] [place] [facility] Jan 21, 2024 08:30 AM [...] 28, 2024 03:00 PM AMBULATORY - MEDICINE [place] C [facility] [place] [facility] Apr 07, 2024 10:30 AM AMBULATORY - PSYCHIATRY [place] [facility] [place] [facility] [...] data comes from all [place] treatment facilities. Test Date/Time Test Type Test Details Facility Name Jan 15, 2024 03:28 PM Consult Order [facility] SURG[facility] Cons [employer] [facility] Vital Signs: All taken on the encounter date This section contains inpatient and outpatient Vital Signs collected on the date of the Encounter. Date/Time Temperature Pulse Blood Pressure Respiratory Rate SP02 Pain Height Weight Body Mass Index Source Jan 15, 2024 03:22 PM 97 94 144/98 18 96 233 34 [facility] Social History: Smoking Status (Most current) and Tobacco Use (All prior to encounter date) This section includes the most current, and the historical, smoking and tobacco- related health factors from the [place] facility where the Encounter took place. Current Smoking Status This section includes the most current smoking, or tobacco-related health factor, from the [place] facility where the Encounter took place. Date/Time Current Smoking Status Comment Facil ity July 16, 2023 08:30 AM [place]-TOBACCO NEVER USED [facility] Radiology Reports: +/- 30 days of the [...] the Encounter. The data comes from all [place] treatment facilities. Date/Time Radiology Report Provider Source Feb 01, 2024 09:32 AM SHOULDER,COMPLETE( RIGHT): MACK HURTADO [id number] -1975 M Exm Date: FEB 01, 2024@09:32 Req Phys: SCOUT CROWLEY Pat Loc: CWM/NO/MED REHAB 1 PA (Req'g L Img Loc: [facility] 1 Service: [place] [address] (Case 14 COMPLETE) SHOULDER,COMPLETE(RIGHT) (RAD Detailed) CPT:53645 Reason for Study: right shoulder pain Clinical History: Report Status: Verified Date Reported: FEB 01, 2024 Date Verified: FEB 01, 2024 Retail Selling Floor Leader E-Sig:/ES/JESS ALVAREZ JR Report: Study: AP internally [...] Primary Interpreting Staff: JESS ALVAREZ JR, Radiologist (Retail Selling Floor Leader) /JESS JARAMILLO JR [facility] Feb 01, 2024 09:32 AM ELBOW 3 OR MORE VIEWS(LEFT): MACK HURTADO [id number] -1975 M Exm Date: FEB 01, 2024@09:32 Req Phys: SCOUT CROWLEY Loc: CWM/NO/MED REHAB 1 PA (Req'g L Img Loc: [facility] 1 Service: [place] [address] (Case 15 COMPLETE) ELBOW 3 OR MORE VIEWS(LEFT) (RAD Detailed) CPT:65042 Reason for Study: left elbow pain Clinical History: Report Status: Verified Date Reported: FEB 01, 2024 Date Verified: FEB 01, 2024 Retail Selling Floor Leader E-Sig:/ES/JESS ALVAREZ JR Report: Study: AP, lateral [...] Primary Interpreting Staff: JESS ALVAREZ JR, Radiologist (Retail Selling Floor Leader) /JESS JARAMILLO JR [place] [facility] Encounter Notes: All associated encounter notes This section contains the clinical notes associated to the Encounter. Date/Time Encounter Note(s) Provider Source Jan 15, 2024 03:23 PM PREVENTIVE MEDICIN E NURSING NOTE: LOCAL TITLE: CLINICAL REMINDERS/NURSING STANDARD TITLE: PREVENTIVE MEDICINE NURSING NOTE DATE OF NOTE: JAN 15, 2024@15:23 ENTRY DATE: JAN 15, 2024@15:23:45 AUTHOR: ADENIKE MICHEL COSIGNER: URGENCY: STATUS: COMPLETED Homelessness/Food Insecurity Screen: In the past 2 months, have you been living in stable housing that you own, rent, or stay in as part of a household? Yes - Living in stable housing. Are you worried or concerned that in the next 2 months you may NOT have stable housing that you own, rent, or stay in as part of a household? No - Not worried about housing near future The reports the following: Within the past 12 months, you worried whether your food would run out before you got money to buy more. Never true Within the past 12 months, the food you bought just didn't last and you didn't have money to get more. Never true HIV Screening: Patient has been offered HIV testing and has declined. I have explained that HIV testing is recommended for all adults, even if all risk factors are absent. The patient was educated on the risk of delayed screening. BMI>30/>24.99 High Risk: Patient declines to discuss weight management. Patient declined weight discussion. Discussed revisiting at a future visit. Lipid Screening: Lipid profile ordered at this encounter by pcp. Influenza Immunization: Deferral / Refusal The patient declines to receive the recommended dose of seasonal influenza vaccine. Immunization: INFLUENZA, UNSPECIFIED FORMULATION Refusal Reason: PATIENT DECISION Patient refuses all immunization(s) in the FLU group Date Documented: 01/15/24 15:25 Tdap Immunization: The patient declines to receive the recommended dose of Tdap vaccine. Immunization: TDAP Refusal Reason: PATIENT DECISION Patient refuses all immunization(s) in the TDAP group Date Documented: 01/15/24 15:26 COVID-19 Immunization: Vaccine given previously - no written/electronic documentation available The patient was instructed to bring a copy of their COVID-19 vaccine information to their next appointment so that this can be accurately recorded in their [place] medical record. /cherri/ ADENIKE MICHEL LPN LICENSED PRACTICAL NURSE Signed: 01/15/2024 15:27 ADENIKE MICHEL Jan 15, 2024 03:19 PM PHYSICIAN CARLOS Thomas NOTE: LOCAL TITLE: PA NOTE STANDARD TITLE: PHYSICIAN LENS BLOCK GAUGER NOTE DATE OF NOTE: JAN 15, 2024@15:19 ENTRY DATE: JAN 15, 2024@15:19:40 AUTHOR: MARTI BUTLER EXP COSIGNER: URGENCY: STATUS: COMPLETED S - f/i sx cts O - reviewed NCS A/P - CTS, Bilat Wrists; R Side > L Side - NCS Done at [facility] - refer Ortho RTC APR 24 - labsd before Screen for Embedded Fragments: SCREEN FOR EMBEDDED FRAGMENTS The patient reports no embedded fragments. /cherri/ MARTI BUTLER PA-C STAFF PHYSICIAN LENS BLOCK GAUGER Signed: 01/15/2024 15:40 MARTI BUTLER
--- OUTSIDE RECORDS SUMMARY | 2024-02-16 07:43 | XMS_ITS | Encounter Summary ---
Author Name [facility] Organization [facility] Address [address] [place] [id number] Support Name Relationship Address Phone HURTADO, SRIRAM Next of Kin [address] [place] [address] SRIRAM HURTADO Emergency Contact [address] [place] [address] Selected Encounter This section includes the information on record at MD for the Encounter. Date/Time Encounter Type Encounter Description Reason Pro vider Source Feb 01, 2024 08:00 AM Outpatient Encounter PM&RS PHYSICIAN IHE Encounter Template Text not used by MD Plan of Treatment: Future Appointments (+ 6 [...] 20 appointments. The data comes from all [facility] treatment facilities. Appointment Date/Time Appointment Type Appointme nt Facility Name Feb 02, 2024 04:00 PM AMBULATORY - NONE [facility] [place] [facility] Feb 04, 2024 09:30 AM AMBULATORY - PSYCHIATRY [facility] [place] [facility] Feb 09, 2024 04:30 PM AMBULATORY - REHAB MEDICIN E [facility] [place] [facility] Mar 28, 2024 03:00 PM AMBULATORY - MEDICINE MD C [facility] [place] [facility] Apr 07, 2024 10:30 AM AMBULATORY - PSYCHIATRY [facility] [place] [facility] Active, Pending, and Scheduled Orders This section includes a listing of several types of active, pending, and scheduled orders, including clinic medications orders, diagnostic test orders, procedure orders and consult orders; where the start date of the order is 45 days before the date of the Encounter or 45 days after the date of theEncounter. The data comes from all [facility] facilities. Test Date/Time Test Type Test Details Facility Name Jan 15, 2024 03:28 PM Consult Order [facility] SURGICAL Cons Child Study Team Director's Choice [place] Radiology Reports: +/- 30 days of the [...] the Encounter. The data comes from all [facility]. Date/Time Radiology Report Provider Source Feb 01, 2024 09:32 AM SHOULDER,COMPLETE( RIGHT): MACK HURTADO [id number] -1975 [facility] Date: FEB 01, 2024@09:32 Req Phys: AG VINCENT Pat Loc: [facility]/NO/MED REHAB 1 PA (Req'g L Img Loc: [facility] Service: Unknown [place] [address] (Case 14 COMPLETE) SHOULDER,COMPLETE(RIGHT) (RAD Detailed) CPT:90516 Reason for Study: right shoulder pain Clinical History: Report Status: Verified Date Reported: FEB 01, 2024 Date Verified: FEB 01, 2024 Machine Designer E-Sig:/ES/JESS ALVAREZ JR Report: Study: AP internally [...] Primary Interpreting Staff: JESS ALVAREZ JR, Radiologist (Machine Designer) /JESS JARAMILLO JR [facility] Feb 01, 2024 09:32 AM ELBOW 3 OR MORE VIEWS(LEFT): MACK HURTADO [id number] -1975 M Ex Date: FEB 01, 2024@09:32 Req Phys: AG VINCENT Pat Loc: [facility]/NO/MED REHAB 1 PA (Req'g L Img Loc: [facility]/BUILDING 1 Service: [place] [address] (Case 15 COMPLETE) ELBOW 3 OR MORE VIEWS(LEFT) (RAD Detailed) CPT:63614 Reason for Study: left elbow pain Clinical History: Report Status: Verified Date Reported: FEB 01, 2024 Date Verified: FEB 01, 2024 Machine Designer E-Sig:/ES/JESS ALVAREZ JR Report: Study: AP, lateral [...] Primary Interpreting Staff: JESS ALVAREZ JR, Radiologist (Machine Designer) /JESS JARAMILLO JR [facility] Encounter Notes: All associated encounter notes This section contains the clinical notes associated to the Encounter. Date/Time Encounter Note(s) Provider Source Feb 01, 2024 08:20 AM PHYSICAL MEDICINE REHAB CONSULT: LOCAL TITLE: CONSULT REPORT/PM&R STANDARD TITLE: PHYSICAL MEDICINE REHAB CONSULT DATE OF NOTE: FEB 01, 2024@08:20 ENTRY DATE: FEB 01, 2024@08:21:41 AUTHOR: AG VINCENT EXP COSIGNER: URGENCY: STATUS: COMPLETED FEB 01, 2024 MACK HURTADO is a 48 y/o RHD WHITE MALE, previously in [employer] FROM June TO Apr from [employer] OF [employer] - [employer], who was seen today for consultation requested by Patria Pantoja OT today for chief complaint of pain in the elbow area on both arms. Worse on the left. Right hand dominant. Onset/Course: 2000- Was in training doing push ups and hand started getting numb. Initially was thought to be carpal tunnel. He completed training and symptoms improved temporarily. Would get occasional flare ups. He was in [place]. Had ulnar nerve transpoisition on both side in 2009 and 2011. Right responded well. Still gets some numbness but severe left pain and numbness in the 4th and 5th. Jose the whole hand is numb. PCP started Gabapentin 300 mg. This reduced the numbness sensation but not the pain in the elbows. He is unable to exercise with the arms because elbows start hurting. Holding weight on the left and the joint becomes irritated. Trauma/inciting events: Micro trauma with repetitive Quality/associated symptoms:Aching Denies weakness, numbness, or tingling in the lower extremities. Radiation: muscular pain in the extensors. Aggravating factors: Hand intensive activities. Alleviating factors: gabapentin Severity: 3-4/10 Overall average level of function: 5 /10 Timing: (intermittent) Medications/Therapy/Interve ntions history:OT helpful on the right elbow. Systemic/Other symptoms: Denies fever, chills, night sweats, weight loss, saddle paresthesia, or bowel/bladder incontinence. 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 Symptoms are almost immediate. Pertinent prior procedures and/or imaging: PMHx as obtained from Chart: Active problems - Computerized Problem List is the source for the followin. 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 Blurred vision 4. Exposure to potentially hazardous substance ([facility] [id number]) 5. Ulnar nerve entrapment 6. Contact with and (suspected) exposure to other hazardous substances 7. Other Contact with and (Suspected) Exposures Hazardous to Health 8. Nasal Congestion 9. Postnasal drip PSxHx:[place] did have Cat scratch fever as a child. Had lymph node drainange scar right axillary region. Fam Hx: As a child, he was living at [facility]. He contracted Cat scratch fever and had lymph node drainage. Soc Hx: MARITAL STATUS - [employer] FROM June TO Apr Service Connected Disabilities with % Eligibility: SERVICE CONNECTED 50% to 100% VERIFIED Total S/C %: 100 PARALYSIS OF UPPER RADICULAR NERVE GROUP 20% S/C LIMITED EXTENSION OF KNEE 0% S/C LIMITED FLEXION OF KNEE 10% S/C PLANTAR FASCIITIS 10% S/C TINNITUS 10% S/C LIMITED EXTENSION OF KNEE 0% S/C IMPAIRED HEARING 0% S/C LIMITED MOTION OF ANKLE 10% S/C INTERVERTEBRAL DISC SYNDROME 10% S/C HIATAL HERNIA 10% S/C COMPLETE ATROPHY OF THE TESTIS 0% S/C PARALYSIS OF UPPER RADICULAR NERVE GROUP 20% S/C LIMITED MOTION OF ANKLE 10% S/C DEFORMITY OF THE PENIS 0% S/C TENDON INFLAMMATION 10% S/C LIMITED FLEXION OF KNEE 10% S/C TENDON INFLAMMATION 10% S/C POST-TRAUMATIC STRESS DISORDER 70% S/C KIDNEY STONES 0% S/C LUMBOSACRAL OR CERVICAL STRAIN 10% S/C 2ND DEGREE BORGES 0% S/C LIMITED MOTION OF ARM 20% S/C SINUSITIS,FRONTAL,CHRONIC 30% S/C 2ND DEGREE BORGES 0% S/C ALL: Patient has answered NKA MEDS: Active Outpatient Medications (including Supplies): DICLOFENAC NA 75MG EC TAB TAKE ONE TABLET BY MOUTH TWICE ACTIVE (S) DAILY FOR PAIN/INFLAMMATION GABAPENTIN 300MG CAP TAKE ONE CAPSULE BY MOUTH TWICE DAILY ACTIVE (S) FOR NERVE PAIN No Active Remote Medications for this patient ROS: Constitutional - Denies fever or chills, night sweats, or unexplained weight loss. Head/Eyes/Ears/Neck- Denies headaches, dizziness, visual changes. Cardiovascular - Denies chest pain/palpitations, lower extremity swelling. Respiratory - Denies shortness of breath, or cough. GI - Denies nausea, vomiting, or loss of bowel fx/control. - Denies urinary difficulties or loss of bladder function. Musculoskeletal - See HPI. Neuro - See HPI. Psychiatric - See PMHx. Denies mood swings or change in behavior. Sleep - Denies nocturnal pain or excessive daytime fatigue. Skin/integuments - Denies rashes, lesions, or skin breakdown in the extremities. All other systems reviewed and are negative. PHYSICAL EXAMINATION: Vitals in chart. GEN: WD, WN. Awake, alert, cooperative with exam. In NAD. PSYCH: Good eye contact. Normal mood. Appropriately concerned. CVS: Extremities warm/well perfused. No lower extremity edema appreciated. PULM: Breathing unlabored, no accessory muscle use. ABD: Nondistended. EXTREMITIES: No cyanosis or edema of bilateral upper and lower extremities. SKIN: No rashes, lesions, or skin breakdown over exposed areas. MUSCULOSKELETAL/NEURO EXAM: On exam this is a healthy-appearing gentleman. Affect appropriate. He has cervical range of motion that is full. Shoulders are quite anterior. He has no tenderness over the acromioclavicular joint. He does have impingement. There is a positive Bishop and positive Neer bilaterally. The rotator cuff was intact. He has tenderness anteriorly over the pectoral groove. Palpation can reproduce some of the numbness that he is experiencing in the hands. Abduction and external rotation of the shoulder just about to the neutral position elicits similar numbness in the hand. He has negative Tinel's at the cubital tunnel. Negative Tinel's at the median nerve bilaterally. Negative Phalen's maneuver. No atrophy identified. Negative Wartenberg. Positive Kozan's, positive Tinel's. Symmetrical reflexes in the upper extremities as well as in the lower extremities. Elbow shows some mild tenderness over the extensor wad. Labs: No data available for: WBC HGB HCT PLT POTASSIUM SODIUM HEMOGLOBIN A1C GLUCOSE CREATININE, Serum BUN (WORC) AST ALT SODIUM, (WORC) GLUCOSE (WORC) BILIRUBIN, TOTAL ALKALINE PHOSPHATASE CHOLESTEROL LDL calculated HDL CHOLESTEROL TRIGLYCERIDE TSH VITAMIN B12 VITAMIN D (25-OH) HIV 1&2 Ag/Ab SCREEN URINE GLUCOSE UA RBC CHEM 7 TREND LAB CUMULATIVE SELECTED 2 No selection items chosen for this component. Liver Function Tests No data available for: AST ALT ALKALINE PHOSPHATASE ALBUMIN BILIRUBIN, TOTAL LDH PROTEIN,TOTAL HEMOGLOBIN A1C TREND No data available Diagnostic Studies: [facility]-rays [facility] 02[facility] reviewed of the left elbow and right shoulder. Right shoulder demonstrates calcification of the right axillary nodes. Osteolysis of the distal clavicle. No calcification of the tendons. Left elbow shows Minimal soft tissue swelling is seen around [...] repeat radiographs in 7-10 days are recommended. PROCEDURE: 1.Subacromial Right shoulder injection with cortisone. 2.left lateral epicondylitis INDICATION: 1.Shoulder pain. 2.left lateral epicondylitis MEDICATIONS:40 mg triamcinolone and 3mL of 1% lidocaine. HINFORMED CONSENT: Obtained verbally, and through IMED. The procedure as well as potential risks and benefits of a subacromial shoulder injection were discussed with patient, who agreed to proceed. The potential risks include, but not limited to: local injection reaction, pain, bruising/hematoma, nerve damage, temporary increase in blood sugar (if applicable), adverse side effects to cortisone or lidocaine including rash/itching, infection, and swelling of the shoulder. TIME OUT NOTE TIME:Jan@09:05 [place] correctly stated: [X]Full name: MACK HURTADO [X]Last of #: [id number] [X]: Oct PROVIDER NAME: Ag Vincent PA-c STAFF NAME: Wilma Garcia RN Lot #: [id number] Exp: Patient was seated with right shoulder relaxed. Posterior lateral corner was palpated and marked at the soft spot Cleansed with povidone x3. Direct cephalomedial no touch approach was utilized. 25- gauge 1-1/2 inch needle was advanced in contact/slight medial direction until loss of resistance. After negative aspiration for heme with loss of resistance, injectate was given. needle was withdrawn and light compression was applied with a 2x2 gauze until bleeding stopped. A band-aid was applied. Attention was then paid to the lateral epicondyles. Cleansed with chlorhexidine x 3. 25-gauge 5/8 inch needle was advanced down to the lateral epicondyle and then slightly withdrawn. Injected with 20 mg triamcinolone in combination of 1 cc 1% lidocaine. No complications. No blood loss. The patient tolerated the procedure well without any immediate adverse side effects. Patient was instructed on the use of ice prn post injection pain/swelling. The patient was discharged home with instructions to monitor for any adverse reactions/side effects, and to contact me with any issues. Pre-procedure pain level:5/10 Post-procedure pain level:2/10 ASSESSMENT/PLAN: Patient is a 48-year-old presenting for elbow pain s/p ulnar nerve transposition with persistent numbness and pain. Lateral epicondylitis identified today and clinical examination on the left. Myofascial disorder involving the pectoral region and anterior fascia likely contributing to the numbness that he experiences. Right subacromial injection provided today as well as left extensor wad injected for lateral epicondylitis. Gentle progressive stretching of the anterior tissues was discussed. He did see improvement in the past with massage therapy so continuing with this would be a reasonable option. He is eager to work on exercise once again. Encourage joi chi. Previously was involved in [employer] so some of the mobility exercises would be reasonable ultimately. Encouraged to work collaboratively between the functional medicine doctor that he is seeing in [place] with his PCP as well. Damian is a youth was with his parents that he [place]. PCP will continue workup for axillary calcifications of the lymph node. FOLLOW-UP: 6 weeks Potential risks and side effects of any medication(s) prescribed today was reviewed with Damian. Patient had many excellent questions, which I answered to the best of my ability and to patient's apparent satisfaction. MDM: 60 minutes which includes reviewing records, evaluating patient, documenting in medical record, educating, counseling and coordinating care. Medication Reconciliation: Outpatient: Has the patient been taking medications as documented in the EMLR? YES: The patient has been taking medications as documented in the EMLR. Essential Medication List for Review used to complete this medication reconciliation. INCLUDED IN THIS LIST: Alphabetical list of active outpatient prescriptions dispensed from this VA (local) and dispensed from another MD or DoD facility (remote) as well as [...] whether with a VA or non-VA provider. JLV Link Data on this list may not be complete. Please check JLV. Allergies/ADRs (Tool #5) FACILITY ALLERGY/ADR -------- No Remote Allergy/ADR Data available for this patient [facility] [place] [facility] No Known Allergies Med Recon NoGlossoakley (Tool #1) INCLUDED IN THIS LIST: Alphabetical list of active outpatient prescriptions dispensed from this VA (local) and dispensed from another VA or DoD facility (remote) as well as inpatient orders (local pending and active), local clinic medications, locally documented non-VA medications, and local prescriptions that have or been discontinued in the past 90 days. Non-VA Meds Last Documented On: Data not found NOTE The display of VA prescriptions dispensed from another VA or DoD facility (remote) is limited to active outpatient prescription entries matched to National Drug File at the originating site and may not include some items such as investigational drugs, compounds, etc. NOT INCLUDED IN THIS LIST: Medications self-entered by the patient into personal health records (i.e. [employer]) are NOT included in this list. Non-VA medications documented outside this MD, remote inpatient orders (regardless of status) and remote clinic medications are NOT included in this list. The patient and provider must always discuss medications the patient is taking, regardless of where the medication was dispensed or obtained. OUTPT DICLOFENAC NA 75MG EC TAB (Status = Active/Suspended) TAKE ONE TABLET BY MOUTH TWICE DAILY FOR PAIN/INFLAMMATION Rx# [id number] Last Released: 12/17/23 Qty/Days Supply: 120/60 Rx Expiration Date: 09/11/24 Refills Remainin Indication: FOR PAIN AND INFLAMMATION OUTPT GABAPENTIN 300MG CAP (Status = Discontinued) TAKE ONE CAPSULE BY MOUTH TWICE DAILY FOR NERVE PAIN Rx# [id number] Last Released: 09/15/23 Qty/Days Supply: 60/30 Rx Expiration Date: 07/20/24 Refills Remainin Indication: FOR NERVE PAIN OUTPT GABAPENTIN 300MG CAP (Status = Discontinued) TAKE ONE CAPSULE BY MOUTH TWICE DAILY FOR NERVE PAIN Rx# [id number] Last Released: 12/28/23 Qty/Days Supply: 60/30 Rx Expiration Date: 12/08/24 Refills Remainin Indication: FOR NERVE PAIN OUTPT GABAPENTIN 300MG CAP (Status = Discontinued) TAKE ONE CAPSULE BY MOUTH TWICE DAILY FOR NERVE PAIN Rx# [id number] Last Released: Qty/Days Supply: 60/30 Rx Expiration Date: 01/06/25 Refills Remainin Indication: FOR NERVE PAIN OUTPT GABAPENTIN 300MG CAP (Status = Active/Suspended) TAKE ONE CAPSULE BY MOUTH TWICE DAILY FOR NERVE PAIN Rx# [id number] Last Released: 01/27/24 Qty/Days Supply: 60/30 Rx Expiration Date: 01/15/25 Refills Remainin Indication: FOR NERVE PAIN OUTPT METHYLPHENIDATE(EQV-CONCERT A)54MG SA TAB (Status = ) TAKE ONE TABLET BY MOUTH ONCE DAILY FOR ADHD NEXT FILL 11/25/23 Rx# [id number] Last Released: 10/28/23 Qty/Days Supply: Rx Expiration Date: 11/27/23 Refills Remainin Indication: FOR ADHD OUTPT METHYLPHENIDATE(EQV-CONCERT A)54MG SA TAB (Status = Discontinued) TAKE ONE TABLET BY MOUTH ONCE DAILY FOR ADHD NEXT FILL 01/04/24 Rx# [id number] Last Released: 12/07/23 Qty/Days Supply: Rx Expiration Date: 01/06/24 Refills Remainin Indication: FOR ADHD OUTPT METHYLPHENIDATE(EQV-CONCERT A)54MG SA TAB (Status = ) TAKE ONE TABLET BY MOUTH ONCE DAILY FOR ADHD NEXT FILL 02/01/24 Rx# [id number] Last Released: 01/01/24 Qty/Days Supply: Rx Expiration Date: 01/27/24 Refills Remainin Indication: FOR ADHD OUTPT METHYLPHENIDATE(EQV-CONCERT A)54MG SA TAB (Status = Pending) TAKE ONE TABLET BY MOUTH ONCE DAILY Login Date: 02/01/24 Qty/Days Supply: Refills Ordered: 0 SUPPLIES /cherri/ AG VINCENT [facility] Signed: 02/01/2024 13:12 AG VINCENT [facility]
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
--- OUTSIDE RECORDS SUMMARY | 2024-02-16 07:43 | XMS_ITS | Encounter Summary ---
Author Name Department [place] Organization [place] Address [address] [place] [address] Support Name Relationship Address Phone HURTADOQING MAZARIEGOSHER Next of Kin [address] [place] [address] BRYANT SRIRAM Emergency Contact [address] [place] [address] Selected Encounter This section includes the information on record at [place] for the Encounter. Date/Time Encounter Type Encounter Description Reason Pro vider Source Feb 01, 2024 08:53 AM Outpatient Encounter DENTAL IHE Encounter Template [...] 02, 2024 04:00 PM AMBULATORY - NONE [place] [facility] [place] [facility] Feb 04, 2024 09:30 AM AMBULATORY - PSYCHIATRY [place] [facility] [place] [facility] Feb 09, 2024 04:30 PM AMBULATORY - REHAB MEDICIN E [facility] [place] [facility] Mar 28, 2024 03:00 PM AMBULATORY - MEDICINE [place] [facility] [place] [facility] Apr 07, 2024 10:30 AM AMBULATORY - PSYCHIATRY [place] [facility] [place] [facility] Active, Pending, and Scheduled Orders [...] 2024 03:28 PM Consult Order [facility] Cons Form Building Supervisor's Choice [place] Radiology Reports: +/- 30 days of the [...] the Encounter. The data comes from all [facility]. Date/Time Radiology Report Provider Source Feb 01, 2024 09:32 AM SHOULDER,COMPLETE( RIGHT): MACK HURTADO Dulce [id number] -1975 [facility] Date: FEB 01, 2024@09:32 Req Phys: SCOUT CROWLEY Pat Loc: CWM/NO/MED REHAB 1 PA (Req'g L Img Loc: [facility]/BUILDING 1 Service: [place] [address] (Case 14 COMPLETE) SHOULDER,COMPLETE(RIGHT) (RAD Detailed) CPT:07684 Reason for Study: right shoulder pain Clinical History: Report Status: Verified Date Reported: FEB 01, 2024 Date Verified: FEB 01, 2024 Dianetic Counselor E-Sig:/ES/JESS ALVAREZ JR Report: Study: AP internally [...] Primary Interpreting Staff: JESS ALVAREZ JR, Radiologist (Dianetic Counselor) /JESS JARAMILLO JR [facility] Feb 01, 2024 09:32 AM ELBOW 3 OR MORE VIEWS(LEFT): MACK HURTADO [id number] -1975 M Exm Date: FEB 01, 2024@09:32 Req Phys: SCOUT CROWLEY Pat Loc: CWM/NO/MED REHAB 1 PA (Req'g L Img Loc: [facility]/BUILDING 1 Service: [place] [address] (Case 15 COMPLETE) ELBOW 3 OR MORE VIEWS(LEFT) (RAD Detailed) CPT:01708 Reason for Study: left elbow pain Clinical History: Report Status: Verified Date Reported: FEB 01, 2024 Date Verified: FEB 01, 2024 Dianetic Counselor E-Sig:/ES/JESS ALVAREZ JR Report: Study: AP, lateral [...] Primary Interpreting Staff: JESS ALVAREZ JR, Radiologist (Dianetic Counselor) /JESS JARAMILLO JR [facility] Encounter Notes: All associated encounter notes This section contains the clinical notes associated to the Encounter. Date/Time Encounter Note(s) Provider Source Feb 01, 2024 08:54 AM DENTISTRY TELEPHON E ENCOUNTER NOTE: LOCAL TITLE: TELEPHONE NOTE/DENTAL STANDARD TITLE: DENTISTRY TELEPHONE ENCOUNTER NOTE DATE OF NOTE: FEB 01, 2024@08:54 ENTRY DATE: FEB 01, 2024@08:54:03 AUTHOR: JD TINAJERO EXP COSIGNER: URGENCY: STATUS: COMPLETED Called pt and LM to confirm dental appointment on 02/02/2024 at 4:00 pm. /cherri/ JD TINAJERO ADVANCED UI APPLICATION DEVELOPER Signed: 02/01/2024 08:55 JD TINAJERO [facility]
--- OUTSIDE RECORDS SUMMARY | 2024-02-16 07:43 | XMS_ITS | Encounter Summary ---
Author Name Department of [place] Organization [place] Address [address] [place] [address] Support Name Relationship Address Phone HURTADOQING MAZARIEGOSHER Next of Kin [address] [place] [address] HURTADOQINGSRIRAM Emergency Contact [address] [place] [address] Selected Encounter This section includes the information on record at [place] for the Encounter. Date/Time Encounter Type Encounter Description Reason Pro vider Source Feb 01, 2024 09:09 AM Outpatient Encounter EVENT (HISTORICAL) IHE Encounter Template Text not used by [place] Plan of Treatment: Future Appointments (+ 6 [...] 02, 2024 04:00 PM AMBULATORY - NONE [place] [facility] [place] [facility] Feb 04, 2024 09:30 AM AMBULATORY - PSYCHIATRY [place] [facility] [place] [facility] Feb 09, 2024 04:30 PM AMBULATORY - REHAB MEDICIN E [facility] [place] [facility] Mar 28, 2024 03:00 PM AMBULATORY - MEDICINE [place] [facility] [place] [facility] Apr 07, 2024 10:30 AM AMBULATORY - PSYCHIATRY [place] [facility] [place] [facility] Active, Pending, and Scheduled Orders This section includes a listing of several types of active, pending, and scheduled orders, including clinic medications orders, diagnostic test orders, procedure orders and consult orders; where the start date of the order is 45 days before the date of the Encounter or 45 days after the date of theEncounter. The data comes from all [facility] facilities. Test Date/Time Test Type Test Details Facility Name Jan 15, 2024 03:28 PM Consult Order [facility] SURGICAL Cons Railroad Repairer's Choice [place] Radiology Reports: +/- 30 days of the [...] the Encounter. The data comes from all [facility]. Date/Time Radiology Report Provider Source Feb 01, 2024 09:32 AM SHOULDER,COMPLETE( RIGHT): MACK HURTADO [id number] -1975 [facility] Date: FEB 01, 2024@09:32 Req Phys: SCOUT CROWLEY Pat Loc: [facility]/NO/MED REHAB 1 PA (Req'g L Img Loc: [facility] 1 Service: [place] [address] (Case 14 COMPLETE) SHOULDER,COMPLETE(RIGHT) (RAD Detailed) CPT:23512 Reason for Study: right shoulder pain Clinical History: Report Status: Verified Date Reported: FEB 01, 2024 Date Verified: FEB 01, 2024 Health Technician Hearing E-Sig:/ES/JESS ALVAREZ JR Report: Study: AP internally [...] Primary Interpreting Staff: JESS ALVAREZ JR, Radiologist (Health Technician Hearing) /JESS JARAMILLO JR [facility] Feb 01, 2024 09:32 AM ELBOW 3 OR MORE VIEWS(LEFT): MACK HURTADO [id number] -1975 M [facility] Date: FEB 01, 2024@09:32 Req Phys: SCOUT CROWLEY Pat Loc: [facility]/NO/MED REHAB 1 PA (Req'g L Img Loc: [facility]/BUILDING 1 Service: [place] [address] (Case 15 COMPLETE) ELBOW 3 OR MORE VIEWS(LEFT) (RAD Detailed) CPT:24447 Reason for Study: left elbow pain Clinical History: Report Status: Verified Date Reported: FEB 01, 2024 Date Verified: FEB 01, 2024 Health Technician Hearing E-Sig:/ES/JESS ALVAREZ JR Report: Study: AP, lateral [...] Primary Interpreting Staff: JESS ALVAREZ JR, Radiologist (Health Technician Hearing) /JESS JARAMILLO JR [facility]
--- OUTSIDE RECORDS SUMMARY | 2024-02-16 07:44 | XMS_ITS | Encounter Summary ---
Author Name Department of Vetera Affairs [place] Organization Department [place] Address [address] [place] [address] Support Name Relationship Address Phone HURTADOQING MAZARIEGOSHER Next of Kin [address] [place] [address] HURTADOQING MAZARIEGOSHER Emergency Contact [address] [place] [address] Selected Encounter This section includes the information on record at [place] for the Encounter. Date/Time Encounter Type Encounter Description Reason Provider Source Feb 02, 2024 04:00 PM CASE MGMT-ORAL HEALTH LIT DENTAL ICD-10-CM K03.6 Deposits [accretions] on teeth KAMARI,LATA K IHE Encounter Template Text not used by [place] Assessments - Encounter Diagnoses This section includes the primary and secondary diagnoses documented for the Encounter. Date/Time Primary/Secondary Diagnosis Diagnosis Name Provider Source Feb 02, 2024 04:57 PM PRIMARY Deposits [accretions] on teeth KAMARI,LATA K [facility] Plan of Treatment: Future Appointments [...] Appointment Type Appointme nt Facility Name Feb 04, 2024 09:30 AM AMBULATORY - PSYCHIATRY [facility] Feb 09, 2024 04:30 PM AMBULATORY - REHAB MEDICIN E [facility] Mar 28, 2024 03:00 PM [facility] Apr 07, 2024 10:30 AM AMBULATORY - PSYCHIATRY [facility] Active, Pending, and Scheduled Orders This section includes a listing of several types of active, pending, and scheduled orders, including clinic medications orders, diagnostic test orders, procedure orders and consult orders; where the start date of the order is 45 days before the date of the Encounter or 45 days after the date of theEncounter. The data comes from all [facility]. Test Date/Time Test Type Test Details Facility Name Jan 15, 2024 03:28 PM Consult Order [facility] SURGICAL Cons Product Support Manager's Choice [place] Radiology Reports: +/- 30 days of the [...] the Encounter. The data comes from all [facility]. Date/Time Radiology Report Provider Source Feb 01, 2024 09:32 AM SHOULDER,COMPLETE( RIGHT): MACK HURTADO [id number] -1975 M Ex Date: FEB 01, 2024@09:32 Req Phys: SCOUT CROWLEY Pat Loc: [facility]/NO/MED REHAB 1 PA (Req'g L Img Loc: [facility] 1 Service: [place] [address] (Case 14 COMPLETE) SHOULDER,COMPLETE(RIGHT) (RAD Detailed) CPT:37144 Reason for Study: right shoulder pain Clinical History: Report Status: Verified Date Reported: FEB 01, 2024 Date Verified: FEB 01, 2024 Government Relations Director E-Sig:/ES/JESS ALVAREZ JR Report: Study: AP internally [...] Primary Interpreting Staff: JESS ALVAREZ JR, Radiologist (Government Relations Director) /JESS JARAMILLO JR [facility] Feb 01, 2024 09:32 AM ELBOW 3 OR MORE VIEWS(LEFT): MACK HURTADO Dulce [id number] -1975 M [facility] [place] Date: FEB 01, 2024@09:32 Req Phys: SCOUT CROWLEY Pat Loc: [place]/NO/MED REHAB 1 PA (Req'g L Img Loc: [facility] 1 Service: [place] [address] (Case 15 COMPLETE) ELBOW 3 OR MORE VIEWS(LEFT) (RAD Detailed) CPT:64411 Reason for Study: left elbow pain Clinical History: Report Status: Verified Date Reported: FEB 01, 2024 Date Verified: FEB 01, 2024 Government Relations Director E-Sig:/ES/JESS ALVAREZ JR Report: Study: AP, lateral [...] Primary Interpreting Staff: JESS ALVAREZ JR, Radiologist (Government Relations Director) /JESS JARAMILLO JR [facility] Encounter Notes: All associated encounter notes This section contains the clinical notes associated to the Encounter. Date/Time Encounter Note(s) Provider Source Feb 02, 2024 04:57 PM DENTISTRY NOTE: LOCAL TITLE: DENTAL NOTE STANDARD TITLE: DENTISTRY NOTE DATE OF NOTE: FEB 02, 2024@16:57 ENTRY DATE: FEB 02, 2024@16:57:44 AUTHOR: LATA BENITES COSIGNER: URGENCY: STATUS: COMPLETED Patient Name: MACK HURTADO, : 1975, Age: 48 Visit: S: Feb 02, 2024@16:00 [facility] DENTAL RDH 1 PM. Primary PCE Diagnosis: K03.6 (Deposits [accretions] on teeth). Dental Category: 10-OPC, Class II. Treatment Status: Active. Completed Care: (D1110) DENTAL PROPHYLAXIS ADULT. DX: K03.6 Deposits [Accretions] on Teeth (D1206) TOPICAL FLUORIDE VARNISH. DX: K03.6 Deposits [Accretions] on Teeth (D1330) ORAL HYGIENE INSTRUCTION. DX: K03.6 Deposits [Accretions] on Teeth (D9994) CASE MGMT-ORAL HEALTH LIT. DX: K03.6 Deposits [Accretions] on Teeth Oral Health Assessment Findings: Plaque Index: 1 - Slight Xerostomia: 0 - None Caries Risk: 1 - Low ??-- HEBER Oral Hygiene: 1 - Good - - - - - - - - - - - - - - - - - - - - - - - - - - - - - - TIME OUT/Safety goals were verified immediately prior to the procedure. (Correct patient, procedure, site, position) Full name and date used. STERILIZATION MONITOR IN INSTRUMENT PACK CHECKED AND CONFIRMED CC: Halle said upper left bothers him when he chews sometimes. upper right is sensitive. Discussed sensodyne. #19 the distal has a small chip and when air is blowed on it it is sticky with a fracture line running down the middle of the tooth PREMEDICATION: Not indicated PAST MEDICAL HISTORY: Reviewed, no contraindications for treatment. LAST RADIOGRAPHS: FMX & PANO: 07/07/23 NEW RADIOGRAPHS: not due SOFT TISSUE SCREENING: no abnormalities noted EXAMINATION: Not due ORAL HYGIENE ASSESSMENT: generalized light plaque generalized light stain PERIODONTAL ASSESSMENT: generalized light calculus gricelda mandibular anteriors localized light inflammation generalized recession REVIEWED ORAL HEALTH REPORT: CARIES RISK: low GUM DISEASE: low ORAL CANCER RISK: low DENTAL TREATMENT PROVIDED: PROPHYLAXIS - hand scaling, piezo, wolof, floss TOPICAL FLUORIDE APPLICATION - Varnish PRE-RINSE WITH CREST RINSE ORAL HYGIENE INSTRUCTIONS GIVEN TO PATIENT: Patient uses an electric toothbrush twice a day. Discussed brushing 2 times a day for 2 minutes each and flossing daily. Discussed angling bristles into gumlines to remove plaque and bacteria. DESPOSITION: 6 month recall Next visit: eval #19 /cherri/ LATA BENITES [facility], DENTAL SERVICE Signed: 02/02/2024 16:57 Receipt Acknowledged By: 02/04/2024 09:34 /cherri/ VIKKI OSUNA DMD DENTIST LATA BENITES [facility]
--- OUTSIDE RECORDS SUMMARY | 2024-02-16 07:46 | XMS_ITS ---
Author Name [facility] [place] [facility] [place] Address [address] [place] [id number] Support Name Relationship Address Phone HURTADOQING MAZARIEGOSHER Next of Kin [address] [place] [address] HURTADOQING MAZARIEGOSHER Emergency Contact [address] [place] [address] Selected Encounter This section includes the information on record at [place] for the Encounter. Date/Time Encounter Type Encounter Description Reason Provider Source Feb 09, 2024 04:30 PM THER IVNTJ EA ADDL 15 MIN POLYTRAUMA/TBI IND ICD-10-CM F90.0 Attn-defct hyperactivity disorder, predom inattentive type SEBASTIAN DAN [facility] Encounter Template Text not used by [place] Assessments - Encounter Diagnoses This section includes the primary and secondary diagnoses documented for the Encounter. Date/Time Primary/Secondary Diagnosis Diagnosis Name Provider Source Feb 09, 2024 05:22 PM PRIMARY Attn-defct hyperactivity disorder, predom inattentive type SEBASTIAN DAN [facility] [place] [facility] Feb 09, 2024 05:22 PM SECONDARY Cognitive communication deficit SEBASTIAN DAN [facility] [place] [facility] Feb 09, 2024 05:22 PM SECONDARY Encounter for other specified aftercare [facility]BASTIAN DAN [facility] [place] [facility] Plan of Treatment: Future Appointments [...] 20 appointments. The data comes from all [facility]. Appointment Date/Time Appointment Type Appointme nt Facility Name Mar 28, 2024 03:00 PM AMBULATORY - MEDICINE [facility] Apr 07, 2024 10:30 AM AMBULATORY - PSYCHIATRY [facility] Active, Pending, and Scheduled Orders This section includes a listing of several types of active, pending, and scheduled orders, including clinic medications orders, diagnostic test orders, procedure orders and consult orders; where the start date of the order is 45 days before the date of the Encounter or 45 days after the date of theEncounter. The data comes from all [facility]. Test Date/Time Test Type Test Details Facility Name Jan 15, 2024 03:28 PM Consult Order [facility] Cons Workflow Developer's Choice [facility] Radiology Reports: +/- 30 days of the [...] comes from all [facility]. Date/Time Radiology Report Provider Source Feb 01, 2024 09:32 AM SHOULDER,COMPLETE( RIGHT): MACK HURTADO Dulce [id number] -1975 M Ex Date: FEB 01, 2024@09:32 Req Phys: SCOUT CROWLEY Pat Loc: C[facility]/NO/MED REHAB 1 PA (Req'g L Img Loc: [facility]BUILDING 1 Service: [place] [id number] (Case 14 COMPLETE) SHOULDER,COMPLETE(RIGHT) (RAD Detailed) CPT:58394 Reason for Study: right shoulder pain Clinical History: Report Status: Verified Date Reported: FEB 01, 2024 Date Verified: FEB 01, 2024 Melt House Centrifugal Operator E-Sig:/ES/JESS ALVAREZ JR Report: Study: AP [...] Primary Interpreting Staff: JESS ALVAREZ JR, Radiologist (Melt House Centrifugal Operator) /JESS JARAMILLO JR [facility] Feb 01, 2024 09:32 AM ELBOW 3 OR MORE VIEWS(LEFT): MACK HURTADO Dulce [id number] -1975 M Ex Date: FEB 01, 2024@09:32 Req Phys: SCOUT CROWLEY Pat Loc: [facility]/NO/MED REHAB 1 PA (Req'g L Img Loc: [facility]BUILDING 1 Service: [place] [facility] [id number] (Case 15 COMPLETE) ELBOW 3 OR MORE VIEWS(LEFT) (RAD Detailed) CPT:41845 Reason for Study: left elbow pain Clinical History: Report Status: Verified Date Reported: FEB 01, 2024 Date Verified: FEB 01, 2024 Melt House Centrifugal Operator E-Sig:/ES/JESS ALVAREZ JR Report: Study: AP, [...] Primary Interpreting Staff: JESS ALVAREZ JR, Radiologist (Melt House Centrifugal Operator) /JESS JARAMILLO JR [facility] Encounter Notes: All associated encounter notes This section contains the clinical notes associated to the Encounter. Date/Time Encounter Note(s) Provider Source Feb 09, 2024 04:28 PM TELEHEALTH NOTE: LOCAL TITLE: [employer] VIDEO CONNECT TBI SPEECH STANDARD TITLE: TELEHEALTH NOTE DATE OF NOTE: FEB 09, 2024@16:28 ENTRY DATE: FEB 09, 2024@16:28:12 AUTHOR: SEBASTIAN DAN EXP COSIGNER: URGENCY: STATUS: COMPLETED [facility] Video Connect (VVC) Standard Documentation VVC Clinician Resources Only: E911 (Emergency Call Relay Center): [phone] National Veterans Crisis Line - 988 then press #1. CW Suicide Coordinator [phone], Ext. [phone]; Back-up Ext. [phone] [place] Police, Lotus LUQUE [phone] Introduction: Visit is being conducted by [place] [employer]. identified with 2 identifiers: [X] Full Name [X] Date of [ ] [place] ID Card Emergency Plan: confirmed and/or provided the following information in case of emergency or technology failure. PATIENT PHONE - PHONE NUMBER [CELLULAR] - Is patient phone number correct, if not, enter below: 's phone number: MACK HURTADO [address], [place], [address] 's present location and address for appointment: as listed [place]'s emergency contact name and phone number: as listed reported that location is private and safe: Yes Informed Consent: [place] informed of the risks and benefits of Telehealth video care. has the right to refuse video services. If refuses video visit, a jyap-dh-htia visit will be scheduled. [place] verbalized consent for this video visit: Yes [place] provided consent for any other persons present for visit: N/A If yes, who and relationship to patient: Secure visit: Visit was locked for security and privacy: Yes S: Pt seen today via [facility] for cognitive-communication therapy. Active problems - Computerized Problem List is the source for the followin. 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 Blurred vision 4. Exposure to potentially hazardous substance ([facility] [id number]) 5. Ulnar nerve entrapment 6. Contact with and (suspected) exposure to other hazardous substances 7. Other Contact with and (Suspected) Exposures Hazardous to Health 8. Nasal Congestion 9. Postnasal drip Encounter time 39 mins O: The following was addressed during this encounter: //Review of the Pomodoro Technique for studying/working/organizin g and procrastination. He has been using the physical timers //Review of Timeboxing. Mack has been using this strategy for school with good success. //Education with discussion of the types of attention and what supports attention (interest, consequence, etc). Mack participated well in the conversation. //Review of the use of the digital voice recorder to support memory. //Discussed additional needs at this time and Mack agreed he felt well supported and was ready for d/c. GOAL Pt. will support cognitive function by [...] making good progress on all goals. P: D/c. All objectives/goals have been met /cherri/ Sebastian Dna, PhD CCC-QUALITY ASSURANCE/R&D LAB TECHNICIAN, [facility] Speech-Language Pathologist Signed: 02/09/2024 17:23 SEBASTIAN DAN [facility] [place]
--- OUTSIDE RECORDS SUMMARY | 2024-02-16 07:47 | XMS_ITS ---
Author Organization [facility] Address [address] [place] [address] Care Team Providers Care Event Specialist Product Demonstrator Name Role Phone Mateusz Wynne MD Primary Care Provider Raul Contreras Unavailable [phone] MEDICATIONS Medication SIG (Take, Route, Fr equency, Duration) Notes Start Date End Date Status Omeprazole 20 MG 1 Orally Every morning for 90 days 04/07/2023 Active Encounters Encounter Location Date Provider Diagnosis [facility] [address] [place] [phone] 12/08/2023 Raul Schultz PLAN OF TREATMENT Medication Medication Name Sig Start Date Stop Date Notes Omeprazole 20 MG 1 Orally Every morning for 90 days 2023
--- OUTSIDE RECORDS SUMMARY | 2024-02-16 07:47 | XMS_ITS ---
Author Organization [facility] Address [address] [place] [phone] Care Team Providers Care Wet Roaster Name Role Phone Mateusz Wynne MD Primary Care Provider Unavaila Raul Jolley Unavailable [phone] REASON FOR VISIT DYSPHAGIA Encounters Encounter Location Date Provider Diagnosis [facility] [address] [place] [phone] 08/12/2023 Raul Schultz PLAN OF TREATMENT No Information
--- OUTSIDE RECORDS SUMMARY | 2024-02-16 07:47 | XMS_ITS ---
Author Organization [facility] Address [address] [place] [address] Care Team Providers Care Kitchen Steward Name Role Phone Mateusz Wynne MD Primary Care Provider Raul Contreras Unavailable [phone] ALLERGIES No Known Allergies REASON FOR VISIT Patient presents today for gerd MEDICATIONS Medication SIG (Take, Route, Frequency, Duration) Notes Start Date End Date Status Gabapentin 300 MG Oral for 30 Active Excedrin Migraine 250-250-65 MG 2 tablets Orally Once a day for 30 day(s) Not-Taking Rabia Allergy Acti ve Concerta 54 MG 1 tablet in the morn ing Orally Once a day Active Diclofenac Potassium 50 MG TAKE 1 TABLET BY MOUTH TWICE DAILY WITH FOOD AND FULL GLASS OF WATER NEEDED FOR PAIN. AVOID OTHER NSAIDS Oral for 60 PRN Active tiZANidine HCl 4 MG Oral for 30 PRN Active Omeprazole 20 MG 1 Orally Every morni ng for 30 day(s) 04/07/2023 Active SOCIAL HISTORY Tobacco Use: Social History Observation Description Date Details (start date - stop date) Never Smoker NA - NA Sex Assigned At : Social History Observation Description Sex Assigned At Unknown Tobacco Use/Smoking Question Answer Notes Patient is a nonsmoker Alcohol Screen Question Answer Notes Did you have a drink containing alcohol in the p ast year? No Points 0 Interpretation Negative VITAL SIGNS BMI 34.40 kg/m2 12/08/2023 Blood pressure systolic 00 mm Hg 12/08/19 24 Blood pressure diastolic 00 mm Hg 024 Height 5 ft 9 in in 12/08/2023 Weight 233 lbs 12/08/2023 Encounters Encounter Location Date Provider Diagnosis [facility] [address] [place] [phone] 12/08/2023 Raul Schultz Gastroesophageal ref lux disease, unspecified whether esophagitis present K21.9 and Chronic GERD K21.9 ASSESSMENTS Encounter Date Diagnosis Assessment Notes Treatment Notes Treatment Clinical Notes 12/08/2023 Gastroesophageal reflux disease, unspecified whether esophagitis present (ICD-10 - K21.9) Use Omeprazole as needed for heartburn/reflux 12/08/2023 Chronic GERD (ICD-10 - K21.9) 12/08/2023 Other Repeat colonoscopy in 2033 PLAN OF TREATMENT Medication Medication Name Sig Start Date Stop Date Notes Omeprazole 20 MG 1 Orally Every morning for 30 day(s) 08/2023 Treatment Notes Assessment Notes Gastroesophageal reflux dise ase, unspecified whether esophagitis present Use Omeprazole as needed for heartburn/reflux Other Repeat colonoscopy i n 2033 Next Appt Details Follow Up: prn, Reason: Progress Notes * Examination Category Sub-Category Detail Notes General Examination GENERAL APPEARANCE: pleasant , well nourished, well developed, in no acute distress HEAD: EYES: sclera non-icteric EARS: NOSE: THROAT: NECK/THYROID: no cervical lymphade nopathy, neck supple HEART: S1, S2 normal CHEST: LUNGS: clear to auscultatio n bilaterally ABDOMEN: normal bowel sounds, no guarding or rigidity, no guarding or rigidity, no masses palpable, soft, nontender, nondistended NEUROLOGIC: alert and oriented SKIN: nonjaundiced, no spi chelsea angiomata EXTREMITIES: no edema PERIPHERAL PULSES: BACK: BREASTS: MUSCULOSKELETAL: MALE GENITOURINARY: LYMPH NODES: RECTAL EXAM: FEMALE GENITOURINARY: ORAL CAVITY: mucosa moist
--- OUTSIDE RECORDS SUMMARY | 2024-02-16 07:47 | XMS_ITS | Patient Health Record ---
Author Organization [facility] Address [address] [place] [phone] Care Team Providers Care Shock Absorber Installer Name Role Phone Ricci NUNEZ, Mateusz Primary Care Provider [employer] Raul Jolley Unavailable [phone] ALLERGIES No Known Allergies RESULTS Component Value Reference Range Notes Pathology Reviewed date:04/21/2023 06:47:30 PM Interpretation: Performing Lab:[facility], [address] [place] [phone] Notes/Report: REASON FOR REFERRAL Referring Provider First Name JONATHAN Referring Provider Last Name MARTIN Referred Organization [facility] Referred Provider Raul Vallecillo Referred Address [address] [place] [address], [address],[place], [place],[address],[place] Referred Provider Specialty Gastroentero logy General Notes Mary Rapp 024 12:00:16 PM EST > spoke with nai at Dr. clark's office. She stated a referral is required but since I do not have one she will request this for the patient's appt on 03-05-2023 and if she can not get this in time whe will call me back so I can reschedule the appt. [phone] Referral Priority Routine Referred Organization [facility] Referred Provider Raul Vallecillo Referred Address [address] [place] [address], [address],[place], [place],[address],[place] Referred Provider Specialty Gastroentero logy Referral Priority Routine Reason inactive..pt retired from the Referring Provider First Name JONATHAN Referring Provider Last Name MARTIN Referred Organization [facility] Referred Provider Raul Val[place]cillo Referred Address [address],[place],[address],[place] Referred Provider Specialty Gastroentero logy General Notes Mary Rapp 09:29:32 AM EST > SPOKE WITH NAI AT DR MALONE OFFICE AND REQUESTED A REFERRAL FOR VISIT WITH DR VALLECILLO ON 08-12-2023 FOR DYSPHAGIA. [phone], Mary Rapp 04/27/2023 10:54:45 AM EST > initial visit must be by 10-18-2023 Referral Priority Routine Referring Provider First Name Mateusz Referring Provider Last Name Ricci Referring Provider Speciality General Pr actice Referred Organization [facility] Referred Provider Raul [place]cillo Referred Address [address],[place],[address],[place] Referred Provider Specialty Gastroentero logy General Notes Mary Rapp 09:35:56 AM EST > awaiting [facility] to put dr clark as pcp for office visit with dr vallecillo on 05-05-2023 then request referral from pcp dated 05-05-[address] Vallecillo, Mary Rapp 05/06/2023 03:36:22 PM EST > requested a backdated referral from [place] at Dr. Clark's office for visit with Dr. Vallecillo on [phone] Referral Priority Routine MEDICATIONS Medication SIG (Take, Route, Frequency, Duration) Notes Start Date End Date Status Gabapentin 300 MG Oral for 30 Active Excedrin Migraine 250-250-65 MG 2 tablets Orally Once a day for 30 day(s) Not-Taking Omeprazole 20 MG 1 Orally Every morni ng for 90 days 04/07/2023 Active Rabia Allergy Acti ve Diclofenac Potassium 50 MG TAKE 1 TABLET BY MOUTH TWICE DAILY WITH FOOD AND FULL GLASS OF WATER NEEDED FOR PAIN. AVOID OTHER NSAIDS Oral for 60 PRN Active tiZANidine HCl 4 MG Oral for 30 PRN Active Concerta 54 MG 1 tablet in the morn ing Orally Once a day Active SOCIAL HISTORY Tobacco Use: Social History [...] ast year? No Points 0 Interpretation Negative PROBLEMS Problem Type ICD Code Onset Dates Problem Status W/U Status Risk SNOMED Code Notes Problem Gastroesophageal reflux disease, unspecified whether esophagitis present (K21.9) Active confirmed 415628993 Problem Pharyngoesophageal dysphagia (R13.14) Active confirmed 17585889 Problem Colon cancer screening (Z12.11) Active confirmed 350712114 Problem Chronic GERD (K21.9) Active confirmed G astroesophageal reflux disease (428689940) Problem Dysphagia (R13.10) Active confirmed Dys phagia (50593429) VITAL SIGNS Temperature 97.1 degrees Fahrenheit 05/05/2023 Blood pressure diastolic 00 mm Hg 12/08/2023 Height 5 ft 9 in in 12/08/2023 Blood pressure systolic 00 mm Hg 12/08/2023 Weight 233 lbs 12/08/2023 BMI 34.40 kg/m2 12/08/2023 Encounters Encounter Location Date Provider Diagnosis [facility] [address] [place] [phone] 04/06/2023 Raul Vallecillo Diarrhea R19.7 ; Oth er hemorrhoids K64.8 ; Other specified disease of esophagus K22.89 ; Chronic GERD K21.9 and Dysphagia R13.10 [facility] [address] [place] [phone] 08/12/2023 Raul Vallecillo [facility] [address] [place] [phone] 05/05/2023 Raul Vallecillo Gastroesophageal ref lux disease, unspecified whether esophagitis present K21.9 and Dysphagia R13.10 [facility] [address] [place] [phone] 12/08/2023 Raul Vallecillo Gastroesophageal ref lux disease, unspecified whether esophagitis present K21.9 and Chronic GERD K21.9 [facility] [address] [place] [phone] 03/05/2023 Raul Vallecillo Gastroesophageal ref lux disease, unspecified whether esophagitis present K21.9 ; Pharyngoesophageal dysphagia R13.14 and Colon cancer screening Z12.11 [facility] [address] [place] [phone] 04/04/2023 Raul Vallecillo [facility] [address] [place] [address] 04/07/2023 Raul Vallecillo [facility] [address] [place] [address] 04/13/2023 Raul Vallecillo [facility] [address] [place] [address] 05/04/2023 Raul Vallecillo [facility] [address] [place] [address] 05/05/2023 Raul Vallecillo [facility] [address] [place] [address] 12/08/2023 Raul Vallecillo ASSESSMENTS Encounter Date Diagnosis Assessment Notes Treatment Notes Treatment Clinical Notes 04/06/2023 Diarrhea (ICD-10 - R19.7) 04/06/2023 Other hemorrhoids (ICD-10 - K64.8) 05/05/2023 Dysphagia (ICD-10 - R13.10) 05/05/2023 Gastroesophageal ref lux disease, unspecified whether esophagitis present (ICD-10 - K21.9) Start using the omeprazole prescription daily. Call me if problems 12/08/2023 Gastroesophageal ref lux disease, unspecified whether esophagitis present (ICD-10 - K21.9) Use Omeprazole as needed for heartburn/reflux 12/08/2023 Chronic GERD (ICD-10 - K21.9) 03/05/2023 Pharyngoesophageal dysphagia (ICD-10 - R13.14) 03/05/2023 Gastroesophageal ref lux disease, unspecified whether esophagitis present (ICD-10 - K21.9) Need copy of Barium Swallow report from [facility] on 04/03/2023 04/06/2023 Other specified dise ase of esophagus (ICD-10 - K22.89) 03/05/2023 Colon cancer screeni ng (ICD-10 - Z12.11) 04/06/2023 Chronic GERD (ICD-10 - K21.9) 04/06/2023 Dysphagia (ICD-10 - R13.10) 12/08/2023 Other Repeat colonoscopy in 2033 PLAN OF TREATMENT Future Test Test Name Order Date UPPER GI ENDOSCOPY BALLOOON DILATION OF ESOPH 03/05/2023 COLONOSCOPY 03/05/2023 Insurance Providers Payer Name Payer Address Payer Phone Subscriber Number Group Number Insured Name Patient Relationship to Insured Coverage Start Date Coverage End Date [facility] ([facility] Elsa CASPER) [address] [place] [phone] [id number] MACK HURTADO Self - patient is the insured MEDICAL (GENERAL) HISTORY Medical History History ICD Code Kidney stones--sees Dr Gonzales Denies [place],DM,CVA,Lung disease,renal dise ase He describes lactose intolerance GERD-barium swallow in 2023 revealed some mild esophageal dysmotility, but no evidence of any other significant abnormalities. There was no aspiration or esophageal stricture. Sinusitis Lower back pain with treatment as below Negative screening colonoscopy in 2023 Upper endoscopy in April of 2023--small hiatal hernia, mild changes of reflux, and gastroesophageal junction dilated with an 18 to 19mm balloon. Duodenal biopsies were negative for celiac disease. There was no evidence of a Ferguson's esophagus nor eosinophilic esophagitis on the esophageal biopsies. Surgical History Surgery Date(Month/Year) Left and right elbow nerve Vasectomy RFA and Back injections-Dr. Meyer at [facility]
--- OUTSIDE RECORDS SUMMARY | 2024-02-16 07:48 | XMS_ITS ---
Author Organization [facility] Abrams Address [address] [place] [address] Care Team Providers Care Stone Circular Sawyer Name Role Phone Ricci NUNEZ, Mateusz Primary Care Provider Lisa Browning Unavailable [phone] Allergies No Known Allergies REASON FOR VISIT Heel pain Medications Medication SIG (Take, Route, Frequency, Duration) Notes Start Date End Date Status Night Splint AFO - L1930 as directed 01/07/2023 Active Custom Orthotics as directed 01/07/2023 Active Physical Therapy . . B/L Achilles tendonitis, R>L 2-3x/week Not-Taking Mobic 15mg daily Active Social History Tobacco Use: Social History Observation Description Date Details (start date - stop date) Never Smoker NA - NA Tobacco Use/Smoking Question Answer Notes Are you a: nonsmoker Additional Findings: Tobacco Non-User Current no n-smoker Alcohol Screen Question Answer Notes Did you have a drink containing alcohol in the p ast year? No Points 0 Interpretation Negative Tobacco use other than smoking: Question Answer Notes Are you an other tobacco user? No Vital Signs Height 5 ft 9 in in 04/06/2023 Weight 200 lbs 04/06/2023 BMI 29.53 kg/m2 04/06/2023 Encounters Encounter Location Date [facility] [address] 04/06/2023 Lisa Alaniz Achilles tendinitis of right lower extremity M76.61 ; Achilles tendinitis of left lower extremity M76.62 ; Calcaneal spur of left foot M77.32 and Calcaneal spur of right foot M77.31 Assessments Encounter Date Diagnosis (ICD Code) Assessment Notes Treatment Notes Treatment Clinical Notes Section Notes 04/06/2023 Achilles tendinitis of right lower extremity (ICD-10 - M76.61) 04/06/2023 Achilles tendinitis of left lower extremity (ICD-10 - M76.62) 04/06/2023 Calcaneal spur of left foot (ICD-10 - M77.32) 04/06/2023 Calcaneal spur of right foot (ICD-10 - M77.31) Plan Of Treatment Next Appt Details Follow Up: prn, Reason: Progress Notes * Kyle DIANEDOB:1975 (47 yo M)Acc No.[id number]:04/06/2023 Progress Notes Patient:?Kyle Diane Provider:?Lisa Alaniz DPM :1975???Age:47 Y???Sex:Male Lance e:04/06/2023 Address:[address] [place], [place] [id number] Pcp:Mateusz Wynne MD Subjective: * Chief Complaints: * ???Heel pain * HPI: ???Heel pain:?Nature:?aching , sharp pain , stiffness , tenderness.?Location:?Back of heel , B/L , Arch , B/L.?Duration:?several years almost 20 years.?Onset/Cause:?gradual , exercise , running/jogging , work/job.?Course:?improved a little.?Aggrevated:?standing, walking, walking first thing in the morning/after rest , worse at end of the day , work/job , exercise.?Treatments:?rest , change in shoes , custom orthoses , gel cushions , stretching, pt?has not started?PT yet?, AFO-nightsplint, custom orthoses, stretching.? * ROS:?General/Constitutional:?Nausea?denies, denies, denies, denies.?Vomiting?denies, denies, denies, denies.?Hunger Thirst?denies, denies, denies, denies.?Loss appetite?denies, denies, denies, denies.?Chills?denies, denies, denies, denies.?Fatigue?admits, admits, admits, admits.?Fever?denies, denies, denies, denies.?Night Sweats?denies, denies, denies, denies.?Unexplained weight loss?denies, denies, denies, denies.?Unexplained weight gain?denies, denies, denies, denies.?HEENTM:?Dentures?denies, denies, denies, denies.?Dizziness?denies, denies, denies, denies.?Glasses/contacts?denies, denies, denies, denies.?Retinopathy?denies, denies, denies, denies.?Blurred/double vision?denies, denies, denies, denies.?TMJ?denies, denies, denies, denies.?Discharge/drainage?denies, denies, denies, denies.?Implants?denies, denies, denies, denies.?Sore throat?denies, denies, denies, denies.?Dental implants?denies, denies, denies, denies.?Hard of hearing ?denies, denies, denies, denies.?Difficulty chewing/swallowing/speaking?denies, denies, denies, denies.?Nose bleeds?denies, denies, denies, denies.?Sore mouth?denies, denies, denies, denies.?Respiratory:?On Oxygen?denies, denies, denies, denies.?Pneumonia/pleurisy?denies, denies, denies, denies.?Bronchitis?denies, denies, denies, denies.?Emphysema?denies, denies, denies, denies.?Coughing?denies, denies, denies, denies. Cough blood?denies, denies, denies, denies.?Shortness of breath?denies, denies, denies, denies.?Wheezing?denies, denies, denies, denies.?Cardiovascular:?Pacemaker?denies, denies, denies, denies.?MVP?denies, denies, denies, denies.?WPW?denies, denies, denies, denies.?CHF?denies, denies, denies, denies.?Heart attack?denies, denies, denies, denies.?Septal defect?denies, denies, denies, denies.?Rapid beat?denies, denies, denies, denies.?Chest pain ?denies, denies, denies, denies.?Atrial Fib.?denies, denies, denies, denies.?Murmur/Palpitations?denies, denies, denies, denies.?Gastrointestinal:?Hemorrhoids?denies, denies, denies, denies.?Stomach/Abdominal pain?denies, denies, denies, denies.?Dark blood stool?denies, denies, denies, denies.?Irritable bowel ?denies, denies, denies, denies.?Constipation?denies, denies, denies, denies.?Diarrhea?denies, denies, denies, denies.?Hematology:?Swelling?denies, denies, denies, denies.?Clots?denies, denies, denies, denies.?Varicose Veins?denies, denies, denies, denies.?Bruising?denies, denies, denies, denies.?Bleeding problem?denies, denies, denies, denies.?Genitourinary:?Blood urine?denies, denies, denies, denies.?Frequent/Painfu/urination/bladder control?denies, denies, denies, denies.?Kidney stones?admits, admits, admits, admits.?Infection (UTI)?denies, denies, denies, denies.?Nephropathy denies, denies, denies, denies.?sex trans dis (STD)?denies, denies, denies, denies.?Prostate?denies, denies, denies, denies.?Musculoskeletal:?Hammertoes?denies, denies, denies, denies.?Bunions?denies, denies, denies, denies.?Back Pain?admits, admits, admits, admits.?Muscle Cramps/ Resting?admits, admits, admits, admits.?Muscle cramps / walking?denies, denies, denies, denies.?Generalized aches and pains?denies, denies, denies, denies.?Weakness?denies, denies, denies, denies.?Integ.:?Cota?denies, denies, denies, denies.?Scars?denies, denies, denies, denies.?Corns/calluses?denies, denies, denies, denies.?Ingrown nails?denies, denies, denies, denies.?Painful nails?denies, denies, denies, denies. Open Sores?denies, denies, denies, denies.?Rashes?denies, denies, denies, denies.?Neurologic:?Difficulty sleeping?denies, denies, denies, denies.?Brain disorder?denies, denies, denies, denies.?Numbness?admits, admits, admits, admits.?Balance trouble?denies, denies, denies, denies.?Confusion?denies, denies, denies, denies.?Fainting/blackouts?denies, denies, denies, denies.?Tingling?denies, denies, denies, denies.?Tremors?denies, denies, denies, denies.? * Medical History:? * Surgical History:?ulner nerv e relocation 2012 * Hospitalization/Major Diagno stic Procedure:?No Hospitalization History. * Family History:?Mother: heri minaya?Father: alive, diagnosed with Diabetic - NIDDM, Unspecified heart disease.?Paternal Grand Mother: diagnosed with Other malignant neoplasm of unspecified site.?Paternal Grand Father: diagnosed with Unspecified cerebral artery occlusion with cerebral infarction, Other malignant neoplasm of unspecified site.?Maternal Grand Mother: diagnosed with Other malignant neoplasm of unspecified site.?Maternal Grand Father: diagnosed with Other malignant neoplasm of unspecified site.? * Social History:?Tobacco Use:?Tobacco Use/Smoking?Are you a:?nonsmoker ?Additional Findings: Tobacco Non-User?Current non-smoker ?Tobacco use other than smoking?Are you an other tobacco user??No ???Drugs/Alcohol:?Drugs?Have you used drugs other than those for medical reasons in the past 12 months??No ?Alcohol Screen?Did you have a drink containing alcohol in the past year??No ?Points?0 ?Interpretation?Negative ???Miscellaneous:?Caffeine: yes, frequency:, 1-2 cups per day. ?Exercise: yes, hiking, biking, swimming. ?Marital status: . ?Occupation: weeks/months/years, employed,[employer]. * Medications:?TakingMobic , N otes: 15mg dailyNight Splint AFO - L1930 as directed Custom Orthotics as directed Taking Mobic , Notes: 15mg dailyTaking Night Splint AFO - L1930 as directed Taking Custom Orthotics as directed Not-Taking/PRNPhysical Therapy . . . B/L Achilles tendonitis, R>L 2-3x/weekMedication List reviewed and reconciled with the patientNot-Taking/PRN Physical Therapy . . . B/L Achilles tendonitis, R>L 2-3x/weekMedication List reviewed and reconciled with the patient * Allergies:?N.K.D.A.yes[Aller gies Verified] Objective: * Vitals:?Ht: 5 ft 9 in, Wt: 2 00, BMI:29.53, Shoe size: 9.5w. * Examination: ???General Examination: ?GENERAL APPEARANCE:?Reveals a pleasant, alert, well-nourished, well- developed, well hydrated individual, who demonstrates proper attention to hygiene/body habitus, and is in no acute distress, Pt serves as own?historian for office visit today.?ORIENTED:?person, place, and time.?Neurological: ?SENSORY:?Neurological exam reveals intact sensorium, pain sensation normal, vibration sensation intact, pinprick sensation is normal in the lower extremities, Pt denies, anesthesia, burning, paresthesia, tingling, B/L.?DEEP TENDON REFLEXES:?Achilles, 2/4, B/L , Deferred on symptomatic extremity due to discomfort.?Vascular: ?DP PULSES:?3/4, B/L.?PT PULSES:?3/4, B/L.?CAPILLARY FILL TIME:?immediate, all digits, B/L.?SKIN TEMPERTURE GRADIENT OF THE LOWER EXTERMITIES:?warm to cool, proximal to distal, B/L.?HAIR GROWTH/TEXTURE/ELASTICITY/TURGOR:?normal, B/L.?PIGMENTATION:?normal, B/L.?EDEMA:?absent, B/L.?Dermatologic: ?SKIN FINDINGS:?Skin exam reveals normal texture, elasticity, and turgor. There are no masses. The interspaces are clear.?Orthopedic: ?MUSCLE STRENGTH:?5/5 all groups in a symmetrical fashion , B/L.?FOOT MORPHOLOGY:?Decreased Ankle joint dorsiflexion ROM, knee extended , B/L.?Heel Pain: ?INSPECTION REVEALS:? Pain on palpation to Posterior Superior Aspect Calcaneus, Pain on palpation to Achilles tendon/bursa with inflammation and swelling present, Prominent posterior and posterior/superior heel present, B/L, Neg [place].? Assessment: * Assessment: 1.?Achilles tendinitis of ri ght lower extremity - M76.61, Chronic problem, Stable (1=3,2=4)?2.?Achilles tendinitis of left lower extremity - M76.62 (Primary), Chronic problem, Stable (1=3,2=4)?3.?Calcaneal spur of left foot - M77.32?4.?Calcaneal spur of right foot - M77.31? Plan: * Treatment: * Procedure Codes:? * Preventive Medicine:? ??Counseling:?Discussion:?-13: Office or other outpatient visit for the evaluation and management of an established patient, which required a medically appropriate history and/or examination and LOW level of DECISION MAKING for: 1 STABLE ACUTE UNCOMPLICATED PROBLEM, 2 OR MORE MINOR PROBLEMS, OR 1 STABLE CHRONIC PROBLEM, THAT POSE(S) A LOW RISK FOR MORBIDITY/MORTALITY. The visit on the day of the encounter encompassed interpreting the data and educating the patient as to the nature of their condition, treatment options available according to their individual PMH, meds, allergies, and overall health/living conditions, as well as any potential risks or complications that may occur from a failure to adhere to, and participate in, the recommended course of therapy. The discussion included a complete verbal, and/or written explanation of the examination results, any x-rays taken, the proposed diagnosis, and outline of the treatment plan. A schedule for future care needs was also explained. The patient verbalized an understanding of the instructions at this time and agreed to be an active participant in their treatment. If the patient should think of any questions or concerns after the visit, I have encouraged the patient to call the office.?Heel pain:?Discussed other tx options for the patients condition, Given recent successful results to treatment, the patient wishes to continue with the present plan for their condition-awaiting new insurance at the end of the month to start PT, EPAT brochure is dispensed and discussed.? * Follow Up:?prn * Images: * Sign off status: Completed true * Provider:Dony Alaniz, DPWillow Date:?07/2023 Generated for Jenna harrison/Miroslava/Demarcoitting on:?02/16/2024 07:47 AM EST History and Physical Notes * HPI (History of Present Illness) Category Sub-Category Detail Notes Category Not es Heel pain Duration: several years almost 20 year s Nature: aching , sharp pain , stiffness , tenderness Location: Back of heel , B/L , Arch , B/L Onset/Cause: gradual , exercise , running/jogging , work/job Aggravated: standing, walking, w alking first thing in the morning/after rest , worse at end of the day , work/job , exercise Course: improved a little Treatments: rest , change in spencer es , custom orthoses , gel cushions , stretching, pt has not started PT yet , AFO-nightsplint, custom orthoses, stretching Examination Category Sub-Category Detail Notes Category Not es Heel Pain INSPECTION REVEALS: Pain on palp ation to Posterior Superior Aspect Calcaneus, Pain on palpation to Achilles tendon/bursa with inflammation and swelling present, Prominent posterior and posterior/superior heel present, B/L, Neg [place] Neurological SENSORY: Neurological exa m reveals intact sensorium, pain sensation normal, vibration sensation intact, pinprick sensation is normal in the lower extremities, Pt denies, anesthesia, burning, paresthesia, tingling, B/L DEEP TENDON REFLEXES: Achilles, 2/4, B/L , Deferred on symptomatic extremity due to discomfort Dermatologic SKIN FINDINGS: Skin exam reveal s normal texture, elasticity, and turgor. There are no masses. The interspaces are clear Orthopedic FOOT MORPHOLOGY: Decreased Ankle joint dorsiflexion ROM, knee extended , B/L MUSCLE STRENGTH: 5/5 all groups in a symmetrical fashion , B/L General Examination GENERAL APPEARANCE: Reveals a pleasant, alert, well- nourished, well-developed, well hydrated individual, who demonstrates proper attention to hygiene/body habitus, and is in no acute distress, Pt serves as own historian for office visit today ORIENTED: person, place, and t casey Vascular DP PULSES(B): 3/4, B/L PT PULSES(B): 3/4, B/L CAPILLARY FILL TIME: immediate, all digi ts, B/L TEMPERTURE GRADIENT(C): warm to cool, pr oximal to distal, B/L TROPHIC CONDITION-TEXTURE/ELASTICITY/TURGOR/HAIR GROWTH(B): normal, B/L EDEMA(C): absent, B/L PIGMENTATION: normal, B/L
--- OUTSIDE RECORDS SUMMARY | 2024-02-16 07:48 | XMS_ITS ---
Author Organization [facility] [place] Address [address] [facility] [place] [place] [address] Care Team Providers Care Artistic Director Name Role Phone Ricci NUNEZ, Mateusz Primary Care Provider Lisa Browning Unavailable [phone] Allergies No Known Allergies REASON FOR VISIT pt states last pcp visit 10/2022, PCP - 09/2022, Heel pain Medications Medication SIG (Take, Route, Frequency, Duration) Notes Start Date End Date Status Custom Orthotics as directed 01/07/2023 Active Night Splint AFO - L1930 as directed 01/07/2023 Active Physical Therapy . . B/L Achilles tendonitis, R>L 2-3x/week Active Mobic 15mg daily Active Social History Tobacco [...] Signs Height 5 ft 9 in in 02/05/2023 Weight 200 lbs 02/05/2023 BMI 29.53 kg/m2 02/05/2023 Encounters Encounter Location Date [facility] [address] [place] [address] 02/05/2023 Lisa Alaniz Achilles tendinitis of right lower extremity M76.61 ; Achilles tendinitis of left lower extremity M76.62 ; Calcaneal spur of left foot M77.32 and Calcaneal spur of right foot M77.31 Assessments Encounter Date Diagnosis (ICD Code) Assessment Notes Treatment Notes Treatment Clinical Notes Section Notes 02/05/2023 Achilles tendinitis of right lower extremity (ICD-10 - M76.61) 02/05/2023 Achilles tendinitis of left lower extremity (ICD-10 - M76.62) 02/05/2023 Calcaneal spur of left foot (ICD-10 - M77.32) 02/05/2023 Calcaneal spur of right foot (ICD-10 - M77.31) Plan Of Treatment Next Appt Details Follow Up: 6 Weeks, Reason: Progress Notes * Kyle DIANEDOB:1975 (47 yo M)Acc No.[id number]:02/05/2023 Progress Note Patient:?Kyle Diane Provider:?Lisa Alaniz DPM :1975???Age:47 Y???Sex:Male Lance e:02/05/2023 Address:[address] [place], [place] [id number] Pcp:Mtaeusz Wynne MD Subjective: * Chief Complaints: * ???Pt states last pcp visit CP - 09/2022Heel pain * HPI: ???Heel pain:?Nature:?aching , sharp pain , stiffness , tenderness.?Location:?Back of heel , B/L , Arch , B/L.?Duration:?several years almost 20 years.?Onset/Cause:?gradual , exercise , running/jogging , work/job.?Course:?unchanged.?Aggrevated:?standing, walking, walking first thing in the morning/after rest , worse at end of the day , work/job , exercise.?Treatments:?rest , change in shoes , custom orthoses , gel cushions , stretching, pt just received approval for PT , AFO-nightsplint.? * ROS:?General/Constitutional:?Nausea?denies, denies, denies.?Vomiting?denies, denies, denies.?Hunger Thirst?denies, denies, denies.?Loss appetite?denies, denies, denies.?Chills?denies, denies, denies.?Fatigue?admits, admits, admits.?Fever?denies, denies, denies.?Night Sweats?denies, denies, denies.?Unexplained weight loss?denies, denies, denies.?Unexplained weight gain?denies, denies, denies.?HEENTM:?Dentures?denies, denies, denies.?Dizziness?denies, denies, denies.?Glasses/contacts?denies, denies, denies.?Retinopathy?denies, denies, denies.?Blurred/double vision?denies, denies, denies.?TMJ?denies, denies, denies.?Discharge/drainage?denies, denies, denies.?Implants?denies, denies, denies.?Sore throat?denies, denies, denies.?Dental implants?denies, denies, denies.?Hard of hearing ?denies, denies, denies.?Difficulty chewing/swallowing/speaking denies, denies, denies.?Nose bleeds?denies, denies, denies.?Sore mouth?denies, denies, denies.?Respiratory:?On Oxygen?denies, denies, denies.?Pneumonia/pleurisy?denies, denies, denies.?Bronchitis?denies, denies, denies.?Emphysema?denies, denies, denies.?Coughing?denies, denies, denies.?Cough blood?denies, denies, denies.?Shortness of breath?denies, denies, denies.?Wheezing?denies, denies, denies.?Cardiovascular:?Pacemaker?denies, denies, denies.?MVP?denies, denies, denies.?WPW?denies, denies, denies.?CHF?denies, denies, denies.?Heart attack?denies, denies, denies.?Septal defect?denies, denies, denies.?Rapid beat denies, denies, denies.?Chest pain ?denies, denies, denies.?Atrial Fib.?denies, denies, denies.?Murmur/Palpitations?denies, denies, denies.?Gastrointestinal:?Hemorrhoids?denies, denies, denies.?Stomach/Abdominal pain?denies, denies, denies.?Dark blood stool?denies, denies, denies.?Irritable bowel ?denies, denies, denies.?Constipation?denies, denies, denies.?Diarrhea?denies, denies, denies.?Hematology:?Swelling?denies, denies, denies.?Clots?denies, denies, denies.?Varicose Veins?denies, denies, denies.?Bruising?denies, denies, denies.?Bleeding problem?denies, denies, denies.?Genitourinary:?Blood urine?denies, denies, denies.?Frequent/Painfu/urination/bladder control?denies, denies, denies.?Kidney stones?admits, admits, admits.?Infection (UTI)?denies, denies, denies.?Nephropathy?denies, denies, denies. sex trans dis (STD)?denies, denies, denies.?Prostate?denies, denies, denies.?Musculoskeletal:?Hammertoes?denies, denies, denies.?Bunions?denies, denies, denies.?Back Pain?admits, admits, admits.?Muscle Cramps/ Resting?admits, admits, admits.?Muscle cramps / walking?denies, denies, denies.?Generalized aches and pains?denies, denies, denies.?Weakness?denies, denies, denies.?Integ.:?Cota?denies, denies, denies.?Scars?denies, denies, denies.?Corns/calluses?denies, denies, denies.?Ingrown nails?denies, denies, denies.?Painful nails?denies, denies, denies.?Open Sores?denies, denies, denies.?Rashes?denies, denies, denies.?Neurologic:?Difficulty sleeping?denies, denies, denies.?Brain disorder?denies, denies, denies.?Numbness?admits, admits, admits.?Balance trouble?denies, denies, denies.?Confusion?denies, denies, denies.?Fainting/blackouts?denies, denies, denies.?Tingling?denies, denies, denies.?Tremors?denies, denies, denies.? * Medical History:? * Surgical History:?ulner nerv e relocation 2011, 2012 * Hospitalization/Major Diagno stic Procedure:?No Hospitalization [...] the past year??No ?Points?0 ?Interpretation?Negative ???Miscellaneous:?Caffeine: yes, frequency:. ?Exercise: yes, hiking, biking, swimming. ?Marital status: . ?Occupation: weeks/months/years, employed,[employer]. * Medications:?TakingMobic , N otes: 15mg dailyPhysical Therapy . . . B/L Achilles tendonitis, R>L 2-3x/weekNight Splint AFO - L1930 as directed Custom Orthotics as directed Taking Mobic , Notes: 15mg dailyTaking Physical Therapy . . . B/L Achilles tendonitis, R>L 2-3x/weekTaking Night Splint AFO - L1930 as directed Taking Custom Orthotics as directed * Allergies:?N.K.D.A.yes[Aller gies Verified] Objective: * Vitals:?Ht: [...] posterior and posterior/superior heel present, B/L, Neg [place].? Assessment: * Assessment: 1.?Achilles tendinitis of ri ght lower extremity - M76.61, Chronic problem, Worse (4)?2.?Achilles tendinitis of left lower extremity - M76.62 (Primary), Chronic problem, Worse (4)?3.?Calcaneal spur of left foot - M77.32?4.?Calcaneal spur [...] have encouraged the patient to call the office.?Orthotic Dispensing:?The patient presents today for fitting and dispensing of orthotics. The inserts were checked against the prescription and found to be accurate. They were properly fitted to the patient's feet in both weight-bearing and non-weight bearing attitudes. The patient was instructed to gradually increase the amount of time they are wearing the orthoses, starting with one hour the first day and thereon progressively increasing the amount of time used until they are comfortable to be worn all day and with all activities. They were asked to call the office if any signs of skin irritation were noted including redness, blistering or callous formation. The patient verbally indicated a full understanding of all the above information, Handout reviewed and dispensed, The patient signed confirmation form indicating receipt of DME device.? * Follow Up:?6 Weeks * Images: * Sign off status: Completed true * Provider:?Lisa Alaniz DPM Date:?08/2022 Generated for Jenna harrison/Miroslava/Patric on:?02/16/2024 07:47 AM EST History and Physical [...] the day , work/job , exercise Course: unchanged Treatments: rest , change in spencer es , custom orthoses , gel cushions , stretching, pt just received approval for PT , AFO-nightsplint Examination Category Sub-Category Detail Notes Category Not es Heel Pain INSPECTION REVEALS: Pain on palp ation to Posterior Superior Aspect Calcaneus, Pain on palpation to Achilles tendon/bursa with inflammation and swelling present, Prominent posterior and posterior/superior heel present, B/L, Neg [place] Neurological SENSORY: Neurological exa m reveals intact [...]
--- OUTSIDE RECORDS SUMMARY | 2024-02-16 07:48 | XMS_ITS | Patient Health Record ---
Author Organization [facility] [place] Address [address] [place] [address] Care Team Providers Care Buildings And Grounds Coordinator Name Role Phone Mateusz Wynne MD Primary Care Provider Lisa Browning Unavailable [phone] Allergies No Known Allergies Reason For Referral No Information Medications Medication SIG (Take, Route, Frequency, Duration) [...] 04/06/2023 [facility]counters [facility]counter [facility] [address] [facility]/06/[facility] Lisa Alaniz Achilles tendinitis of right [...] foot (ICD-10 - M77.31) Plan Of Treatment Pending Test Test Name Order Date X ray : Foot, left 3V 11/24/2022 X ray : Foot, right 3V 11/24/2022 Insurance Providers Payer Name Payer Address Payer Phone Subscriber Number Group Number Insured Name Patient Relationship to Insured Coverage Start Date Coverage End Date [facility] [address] [place] [phone] [id number] Kyle Diane Self - patient is the insured Medical (General) History Medical History History ICD Code Anxiety Arthritis Back,Hip,and Knee pain Depression Headaches/Migraines Chicken pox Surgical History Surgery Date(Month/Year) ulner nerve relocation 2011, 2012
--- OUTSIDE RECORDS SUMMARY | 2024-02-16 07:48 | XMS_ITS ---
Author Organization [facility] Address [address] [place] [address] Care Team Providers Care User Support Analyst Supervisor Name Role Phone Mateusz Wynne MD Primary Care Provider Lisa Browning [phone] REASON FOR VISIT Physical therapy approval Encounters Encounter Location Date Provider Diagnosis [address] [address] 02/05/2023 Lisa Alaniz Plan Of Treatment No Information Progress Notes * Kyle DIANEDOB:1975 (47 yo M)Acc No.[id number]:02/05/2023 Patient:?Kyle Diane :1975???Age:47 Y???Sex:Male Address:[address] [place] [address] * true * Date:? Generated for Jenna harrison/Miroslava/eTransmitting on:?02/16/2024 07:47 AM EST
== END 2024-02-16 08:11 | disposition home or self-care (01) ==
PROVIDERS: PCP Internal Medicine; Visit Provider Psychiatry & Neurology Neurology
DX: G47.33 Obstructive sleep apnea (adult) (pediatric) (principal)
CPT/HCPCS: 99499

== ENCOUNTER → 2024-02-16 07:24 | Outpatient (BNVA) | payer OTHER, SELFPAY | PROVIDERS: PCP Internal Medicine; Visit Provider Psychiatry & Neurology Neurology ==

== ENCOUNTER 2024-06-21 07:40 | Outpatient (AMB) | payer OTHER, SELFPAY ==
--- OUTSIDE RECORDS SUMMARY | 2024-06-21 07:43 | XMS_ITS | Patient Health Record ---
Author Organization [facility] [place] Address [address] [place] [address] Care Team Providers Care Chromium Plater Name Role Phone Ricci NUNEZ, Mateusz Primary Care Provider Lisa Browning Unavailable [phone] Allergies No Known Allergies Reason For Referral [...] Are you an other tobacco user? No Plan Of Treatment Pending Test Test Name Order Date X ray : Foot, left 3V 11/24/2022 X ray : Foot, right 3V 11/24/2022 Insurance Providers Payer Name Payer Address Payer Phone Subscriber Number Group Number Insured Name Patient Relationship to Insured Coverage Start Date Coverage End Date [facility] [address] [place] [address] [id number] Kyle Diane Self - patient is the insured Medical (General) History Medical History History ICD Code Anxiety Arthritis Back,Hip,and Knee pain Depression Headaches/Migraines Chicken pox Surgical History Surgery Date(Month/Year) ulner nerve relocation 2011, 2012
--- OUTSIDE RECORDS SUMMARY | 2024-06-21 07:44 | XMS_ITS ---
Author Organization [facility] Address [address] [place] [address] Care Team Providers Care Unix Engineer Name Role Phone Ricci NUNEZ, Mateusz Primary Care Provider Raul Contreras [phone] Medications Medication SIG (Take, Route, Fr equency, Duration) Notes Start Date End Date Status Omeprazole 20 MG 1 Orally Every morning for 90 days 04/07/2023 Active Encounters Encounter Location Date Provider Diagnosis [facility] [address] [place] [address] 12/08/2023 Raul Schultz Plan Of Treatment Medication Medication Name Sig Start Date Stop Date Notes Omeprazole 20 MG 1 Orally Every morning for 90 days 2023 Progress Notes * MACK HURTADODOB:1975 (48 yo M)Acc No.[id number]:12/08/2023 Patient:?MACK HURTADO :1975???Age:48 Y???Sex:Male Address:[address] [place] [address], [address] * Refills? Refill Omeprazole Capsule Delayed Release, 20 MG, Orally, 90, 1, Every morning, 90 days, Refills=3 * true * Date:? Generated for Jenna harrison/Miroslava/eTransmitting on:?06/21/2024 07:43 AM EDT
--- OUTSIDE RECORDS SUMMARY | 2024-06-21 07:44 | XMS_ITS ---
[facility] [place] Address [address] [facility] [place] [address] Care Team Providers Care Clinical Laboratory Aide Name Role Phone Ricci NUNEZ, Mateusz Primary Care Provider Lisa Browning Unavailable [phone] Allergies No Known Allergies REASON FOR VISIT [...] 02/05/2023 Encounters Encounter Location Date [facility] [address] [place] [address] 02/05/2023 Lisa Alaniz Achilles tendinitis of right [...] Notes * Kyle DIANEDOB:1975 (47 yo M)Acc No.[id number]:02/05/2023 Progress Note Patient:?Kyle Diane Provider:?Lisa Alaniz DPM :1975???Age:47 Y???Sex:Male Lance e:02/05/2023 Address:[address] [place], [place] [address] Pcp:Mateusz Wynne MD Subjective: * Chief Complaints: [...] posterior and posterior/superior heel present, B/L, Neg [place].? Assessment: * Assessment: 1.?Achilles tendinitis of ri [...] Alaniz DPM Date:?08/2022 Generated for Jenna harrison/Miroslava/Patric on:?06/21/2024 07:44 AM EDT History and Physical Notes * HPI (History [...] posterior and posterior/superior heel present, B/L, Neg [place] Neurological SENSORY: Neurological exa m reveals intact [...] person, place, and t casey Vascular DP PULSES (B): 3/4, B/L PT PULSES (B): 3/4, B/L CAPILLARY FILL TIME: immediate, all digi ts, B/L TEMPERTURE GRADIENT (C): warm to cool, p roximal to distal, B/L TROPHIC CONDITION-TEXTURE/ELASTICITY/TURGOR/HAIR GROWTH (B): normal, B/L EDEMA (C): absent, B/L PIGMENTATION: normal, B/L
--- OUTSIDE RECORDS SUMMARY | 2024-06-21 07:44 | XMS_ITS ---
Author Organization [facility] Address [address] [place] [address] Care Team Providers Care Sales Engineering Manager Name Role Phone Mateusz Wynne MD Primary Care Provider Lisa Browning [phone] REASON FOR VISIT Physical therapy approval Encounters Encounter Location Date Provider Diagnosis [address] [address] 02/05/2023 Lisa Alaniz Plan Of Treatment No Information Progress Notes * Kyle DIANEDOB:1975 (47 yo M)Acc No.[id number]:02/05/2023 Patient:?Kyle Diane :1975???Age:47 Y???Sex:Male Address:[address] [place] [address] * true * Date:? Generated for Jenna harrison/Miroslava/eTransmitting on:?06/21/2024 07:44 AM EDT
--- OUTSIDE RECORDS SUMMARY | 2024-06-21 07:44 | XMS_ITS ---
[facility] [place] Address [address] [place] [address] Care Team Providers Care Caterpillar Driver Name Role Phone Ricci NUNEZ, Mateusz Primary Care Provider Lisa Browning Unavailable [phone] Allergies No Known Allergies REASON FOR VISIT [...] 04/06/2023 Encounters Encounter [facility] [address] 04/06/2023 Lisa Alaniz Achilles tendinitis of right [...] Notes * Kyle DIANEDOB:1975 (47 yo M)Acc No.[id number]:04/06/2023 Progress Notes Patient:?Kyle Diane Provider:?Lisa Alaniz DPM :1975???Age:47 Y???Sex:Male Lance e:04/06/2023 Address:[address] [place], [place] [id number] Pcp:Mateusz Wynne MD Subjective: * Chief Complaints: [...] posterior and posterior/superior heel present, B/L, Neg [place].? Assessment: * Assessment: 1.?Achilles tendinitis of ri [...] off status: Completed true * Provider:Dony Alaniz, DPM Date:?07/2023 Generated for Goldiei christy/Miroslava/eTransmitting on:?06/21/2024 07:43 AM EDT History and Physical Notes * [...] posterior and posterior/superior heel present, B/L, Neg [place] Neurological SENSORY: Neurological exa m reveals intact [...]
--- OUTSIDE RECORDS SUMMARY | 2024-06-21 07:44 | XMS_ITS | Clinical Summary ---
Author Organization [facility] Address [address] [place] [address] Care Team Providers Care Utility Porter Name Role Phone Unavailable Primary Care Provider Unavailabl e Social History Tobacco Use Types Packs/Day Years Used Date Smoking Tobacco: Never Assessed Sex and Gender Information Value Date Recorded Sex Assigned at Not on file Legal Sex Male 5:44 PM EST Gender Identity Not on file Sexual Orientation Not on file Plan of Treatment Health Maintenance Due Date Last Done Comments DTaP,Tdap,and Td Vaccines (1 - Tdap) 11/27/1995 Hepatitis B Vaccines (1 of 3 - 19+ 3-dose series) 11/27/1995 Cholesterol Screening (Lipid Panel) 09/29/2023 Colorectal Cancer Screening: Colonoscopy 09/29/2023 Depression Screening 09/29/2023 HIV Screening 09/29/2023 Hepatitis C Screening 09/29/2023 Social Influencers of Health Screening 09/29/2023 COVID-19 Vaccine (2023-2 5 season) 2023 Influenza Vaccine (Season Ended) 2024 HIB Vaccines Aged Out No longer eligi ble based on patient's age to complete this topic HPV Vaccines Aged Out No longer eligi ble based on patient's age to complete this topic Hepatitis A Vaccines Aged Out No long er eligible based on patient's age to complete this topic IPV Vaccines Aged Out No longer eligi ble based on patient's age to complete this topic MMR Vaccines Aged Out No longer eligi ble based on patient's age to complete this topic Meningococcal ACWY Vaccine Aged Out N o longer eligible based on patient's age to complete this topic Meningococcal B Vaccine Aged Out No l onger eligible based on patient's age to complete this topic Pneumococcal Vaccine: Pediat rics (0 to 5 Years) and At-Risk Patients (6 to 64 Years) Aged Out No longer eligible b ased on patient's age to complete this topic RSV Immunization Patients Un chelsea 20 months Aged Out No longer eligible b ased on patient's age to complete this topic Varicella Vaccines Aged Out No longer eligible based on patient's age to complete this topic
--- OUTSIDE RECORDS SUMMARY | 2024-06-21 07:44 | XMS_ITS | Patient Health Record ---
Author Organization [facility] Address [address] [place] [address] Care Team Providers Care Spare Parts Clerk Name Role Phone Mateusz Wynne MD Primary Care Provider Raul Contreras Unavailable [phone] Allergies No Known Allergies Reason For Referral [...] morn ing Orally Once a day Active Social History Tobacco Use: Social History Observation Description Date Details (start date - stop date) Never Smoker NA - NA Tobacco Use/Smoking Question Answer Notes Patient is a nonsmoker Alcohol Screen Question Answer Notes Did you have a drink containing alcohol in the p ast year? No Points 0 Interpretation Negative Section Notes: He doesn't smoke or use any significant amounts of alcohol He is originally from [place], [place] He doesn't smoke or use any significant amounts of alcohol He is originally from [place], [place] He doesn't smoke or use any significant amounts of alcohol He is originally from [place], [place] Problems Problem Type SNOMED Code ICD Code Onset Dates Problem Status W/U Status Risk Notes Problem [id number] Colon cancer screening (Z12.11) Active confirmed Problem Dysphagia (16223475) Dysphagia (R13.10) Active confirmed Problem 42811569 Pharyngoesophage al dysphagia (R13.14) Active confirmed Problem 664827704 Gastroesophageal reflux disease, unspecified whether esophagitis present (K21.9) Active confirmed Problem Gastroesophageal reflux disease (781507051) Chronic GERD (K21.9) Active confirmed Vital Signs Blood pressure diastolic 00 mm Hg 12/08/2023 Height 5 ft 9 in in 12/08/2023 Blood pressure systolic 00 mm Hg 12/08/2023 Weight 233 lbs 12/08/2023 BMI 34.40 kg/m2 12/08/2023 Encounters Encounter Location Date Provider Diagnosis [facility] [address] [place] [address] 12/08/2023 Raul Schultz Gastroesophageal ref lux disease, unspecified whether esophagitis present K21.9 and Chronic GERD K21.9 [facility] [address] [place] [address] 12/08/2023 Raul Schultz Assessments Encounter Date Diagnosis (ICD Code) Assessment Notes Treatment Notes Treatment Clinical Notes Section Notes 12/08/2023 Gastroesophageal reflux disease, unspecified whether esophagitis present (ICD-10 - K21.9) Use Omeprazole as needed for heartburn/refl ux Overall, Mack appears quite well. He is currently not having any new or worrisome GI complaints. I did advise him that he could certainly remain off omeprazole and try to eat healthy and carefully so as not to worsen reflux symptoms. I did advise him that he could use the omeprazole or other antacid on an as needed basis for any reflux symptoms. I don't think he will need any further upper endoscopies at this time. We did review that he would be due for a followup colonoscopy for screening 2033. If things remain well he would otherwise see me on a p.r.n. basis. Mack was comfortable with this plan. Thank you again for allowing me to participate in Mack's care. I shall continue to keep you advised of his progress as needed. 12/08/2023 Chronic GERD (ICD-10 - K21.9) Overall, Mack appears quite well. He is currently not having any new or worrisome GI complaints. I did advise him that he could certainly remain off omeprazole and try to eat healthy and carefully so as not to worsen reflux symptoms. I did advise him that he could use the omeprazole or other antacid on an as needed basis for any reflux symptoms. I don't think he will need any further upper endoscopies at this time. We did review that he would be due for a followup colonoscopy for screening 2033. If things remain well he would otherwise see me on a p.r.n. basis. Mack was comfortable with this plan. Thank you again for allowing me to participate in Mack's care. I shall continue to keep you advised of his progress as needed. 12/08/2023 Other Repeat colonoscopy in 2033 Overall, Mack appears quite well. He is currently not having any new or worrisome GI complaints. I did advise him that he could certainly remain off omeprazole and try to eat healthy and carefully so as not to worsen reflux symptoms. I did advise him that he could use the omeprazole or other antacid on an as needed basis for any reflux symptoms. I don't think he will need any further upper endoscopies at this time. We did review that he would be due for a followup colonoscopy for screening 2033. If things remain well he would otherwise see me on a p.r.n. basis. Mack was comfortable with this plan. Thank you again for allowing me to participate in Mack's care. I shall continue to keep you advised of his progress as needed. Plan Of Treatment Future Test Test Name Order Date UPPER GI ENDOSCOPY [place] DILATION OF ESOPH 03/05/2023 COLONOSCOPY 03/05/2023 Insurance Providers Payer Name Payer Address Payer Phone Subscriber Number Group Number Insured Name Patient Relationship to Insured Coverage Start Date Coverage End Date [facility] (REFERRA L NEEDED) [address] [place] [phone] [id number] MACK HURTADO Self - patient is the insured Medical (General) History Medical History History ICD Code Kidney stones--sees Dr Gonzales Denies CT,DM,CVA,Lung disease,renal dise ase He describes lactose intolerance [...] Vasectomy RFA and Back injections-Dr. Meyer at [facility]
--- OUTSIDE RECORDS SUMMARY | 2024-06-21 07:44 | XMS_ITS ---
Author Organization [facility] Address [address] [place] [address] Care Team Providers Care Industrial Cleaning Technician Name Role Phone Mateusz Wynne MD Primary Care Provider Raul Contreras Unavailable [phone] Allergies No Known Allergies REASON FOR VISIT Patient presents today for gerd Medications Medication SIG (Take, Route, Frequency, Duration) [...] morni ng for 30 day(s) 04/07/2023 Active Social History Tobacco Use: Social History [...] amounts of alcohol He is originally from [place], [place] Vital Signs Blood pressure systolic 00 mm Hg 12/08/19 24 Blood pressure diastolic 00 mm Hg 024 Height 5 ft 9 in in 12/08/2023 Weight 233 lbs 12/08/2023 BMI 34.40 kg/m2 12/08/2023 Encounters Encounter Location Date Provider Diagnosis [facility] [address] [place] [address] 12/08/2023 Raul Schultz Gastroesophageal ref lux disease, unspecified whether esophagitis present K21.9 and Chronic GERD K21.9 Assessments Encounter Date Diagnosis (ICD Code) Assessment [...] his progress as needed. Plan Of Treatment Medication Medication Name Sig Start Date Stop Date Notes Omeprazole 20 MG 1 Orally Every morning for 30 day(s) 08/2023 Treatment Notes Assessment Notes Gastroesophageal reflux dise ase, unspecified whether esophagitis present Use Omeprazole as needed for heartburn/reflux Other Repeat colonoscopy i n 2033 Next Appt Details Follow Up: prn, Reason: Progress Notes * MACK HURTADODOB:1975 (48 yo M)Acc No.[id number]:12/08/2023 Progress Notes Patient:?MACK HURTADO Provider:?Raul Schultz MD :1975???Age:48 Y???Sex:Male Lance e:12/08/2023 Address:[address] [place], [place] [address] Pcp:Mateusz Wynne MD Subjective: * Chief Complaints: * ???Patient presents today fo r gerd * HPI: ???incontinence:? I saw Mack in followup today in regard to his history of chronic gastroesophageal reflux, previous dysphagia, and discussion of colorectal cancer screening. ?Since I last saw Mack in April he reports that he has been basically feeling well. He did use the omeprazole daily up until just a few weeks ago. He does report that the omeprazole definitely helped his heartburn and reflux symptoms. However, since having stopped it a few weeks ago he has not noticed any return of those symptoms and therefore he has remained off of it. He enjoys a good appetite. He denies any episodes of dysphagia. He denies any nausea, vomiting, nor early satiety. His bowel movements have been regular and without any signs of bleeding. He does have some bloating and abdominal discomfort at times he attributes to eating too much of things like bread or sweets. His previous duodenal biopsies were negative for celiac disease. * ROS:?General/Constitutional:?Change in appetite?denies.?Chills?denies.?Fatigue?denies.?Ophthalmologic:?Comments?all negative.?ENT:?Comments?all negative.?Respiratory:?hemoptysis?denies.?Cough?denies.?Cardiovascular:?Chest pain?denies.?Orthopnea?denies.?Gastrointestinal:?Comments?See HPI for details.?Genitourinary:?Hematuria?denies.?Dysuria?denies.?Musculoskeletal:?Painful joints?denies.?Weakness?denies.?Skin:?Itching?denies.?Rash?denies.?Neurologic:?Headache?denies.?Seizures?denies.?Psychiatric:?Comments?all negative.? * Medical History:? * Surgical History:?Left and r ight elbow nerve Vasectomy RFA and Back injections- Dr. Meyer at [facility] * Hospitalization/Major Diagno stic Procedure:?No Hospitalization History. * Family History:?Father: heri minaya?Mother: alive.? Son has celiac disease No colorectal cancer. * Social History:?Tobacco Use:?Tobacco Use/Smoking?Patient is a?nonsmoker.?Drugs/Alcohol:?Alcohol Screen?Did you have a drink containing alcohol in the past year??No,?Points?0,?Interpretation?Negative.?Miscellaneous:?Children: Four. Marital status: . Occupation: Full[employer]time [employer] at [employer]. Retiring May 01, 2023. 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 ???He doesn't smoke or use any significant amounts of alcohol He is originally from [place], [place]. * Medications:?TakingConcerta 54 MG Tablet Extended Release 1 tablet in the morning Orally Once a dayAllegra Allergy Diclofenac Potassium 50 MG Tablet TAKE 1 TABLET BY MOUTH TWICE DAILY WITH FOOD AND FULL GLASS OF WATER NEEDED FOR PAIN. AVOID OTHER NSAIDS Oral , Notes: PRNtiZANidine HCl 4 MG Tablet Oral , Notes: PRNOmeprazole 20 MG Capsule Delayed Release 1 Orally Every morningGabapentin 300 MG Capsule Oral Taking Concerta 54 MG Tablet Extended Release 1 tablet in the morning Orally Once a dayTaking Rabia Allergy Taking Diclofenac Potassium 50 MG Tablet TAKE 1 TABLET BY MOUTH TWICE DAILY WITH FOOD AND FULL GLASS OF WATER NEEDED FOR PAIN. AVOID OTHER NSAIDS Oral , Notes: PRNTaking tiZANidine HCl 4 MG Tablet Oral , Notes: PRNTaking Omeprazole 20 MG Capsule Delayed Release 1 Orally Every morningTaking Gabapentin 300 MG Capsule Oral Not-Taking/PRNExcedrin Migraine 250-250-65 MG Tablet 2 tablets Orally Once a dayNot-Taking/PRN Excedrin Migraine 250-250-65 MG Tablet 2 tablets Orally Once a dayDiscontinuedtraMADol HCl 50 MG Tablet TAKE 1 TABLET BY MOUTH EVERY 6 HOURS NEEDED FOR PAIN Oral , Notes: PRNMedication List reviewed and reconciled with the patientDiscontinued traMADol HCl 50 MG Tablet TAKE 1 TABLET BY MOUTH EVERY 6 HOURS NEEDED FOR PAIN Oral , Notes: PRNMedication List reviewed and reconciled with the patient * Allergies:?N.K.D.A.yes[Aller gies Verified] Objective: * Vitals:?Wt: 233 lbs, Ht: 5 f t 9 in, BMI:34.40 Index, BP: 00/00 mm Hg. * Examination: ???General Examination: ?GENERAL APPEARANCE:?pleasant, well nourished, well developed, in no acute distress.?EYES:?sclera non-icteric.?ORAL CAVITY:?mucosa moist.?NECK/THYROID:?no cervical lymphadenopathy, neck supple.?SKIN:?nonjaundiced, no spider angiomata.?HEART:?S1, S2 normal.?LUNGS:?clear to auscultation bilaterally.?ABDOMEN:?normal bowel sounds, no guarding or rigidity, no guarding or rigidity, no masses palpable, soft, nontender, nondistended.?EXTREMITIES:?no edema.?NEUROLOGIC:?alert and oriented.? Assessment: * Assessment: 1.?Gastroesophageal reflux d isease, unspecified whether esophagitis present - K21.9 (Primary)?2.?Chronic GERD - K21.9? Overall, Mack appears quite well. He is [...] you advised of his progress as needed. Plan: * Treatment: 2.?Others? Refill Omeprazole Capsule Delayed Release, 20 MG, 1, Orally, Every morning, 30 day(s), 30, Refills 6.?? Notes: Repeat colonoscopy in 2033?? * Procedure Codes:?3017F COLOR ECTAL CA SCREEN DOC [id number] TOBACCO [id number] BP SCR NOT PRFRM REC REASON NOS * Preventive Medicine:? ??Counseling:?Care goal follow-up plan:?Above Normal BMI Follow-up?Giving encouragement to exercise,?BMI management provided?Yes.? * Follow Up:?prn * * Sign off status: Completed true * Provider:?Raul Schultz MD Date:? 024 Generated for Jenna harrison/Miroslava/eTransmitting on:?06/21/2024 07:43 AM EDT History and Physical Notes * HPI (History of Present Illness) Category Sub-Category Detail Notes Category Not es incontinence I saw Mack in followup today in regard to his history of chronic gastroesophageal reflux, previous dysphagia, and discussion of colorectal cancer screening. Since I last saw Mack in April he reports that he has been basically feeling well. He did use the omeprazole daily up until just a few weeks ago. He does report that the omeprazole definitely helped his heartburn and reflux symptoms. However, since having stopped it a few weeks ago he has not noticed any return of those symptoms and therefore he has remained off of it. He enjoys a good appetite. He denies any episodes of dysphagia. He denies any nausea, vomiting, nor early satiety. His bowel movements have been regular and without any signs of bleeding. He does have some bloating and abdominal discomfort at times he attributes to eating too much of things like bread or sweets. His previous duodenal biopsies were negative for celiac disease. Examination Category Sub-Category Detail Notes Category Not es General Examination GENERAL APPEARANCE: pleasant , well [...]
--- OUTSIDE RECORDS SUMMARY | 2024-06-21 07:44 | XMS_ITS ---
Author Organization [facility] Address [address] [place] [phone] Care Team Providers Care Janitorial Assistant Name Role Phone Ricci NUNEZ, Mateusz Primary Care Provider Justusa Raul Jolley [facility] [phone] REASON FOR VISIT DYSPHAGIA Encounters Encounter Location Date Provider Diagnosis [facility] [address] [place] [phone] 08/12/2023 Raul Schultz Plan Of Treatment No Information Progress Notes * MACK HURTADODOB:1975 (48 yo M)Acc No.[id number]:08/12/2023 Progress Notes Patient:?BRYANT MACK Provider:?Raul Schultz MD :1975???Age:47 Y???Sex:Male Lance e:08/12/2023 Address:[address] [place], [place] [id number] Pcp:Mateusz Wynne MD Subjective: * Chief Complaints: * ???1. DYSPHAGIA. * Medical History:? Objective: * Vitals:? Assessment: Plan: * Treatment: * * The named appointment provid er may or may not be the originator of this progress note, and it is not deemed complete until electronically signed by the appointment provider. Sign off status: Pending * Provider:?Raul Schultz MD Date:? 024 Generated for Jenna harrison/Miroslava/eTransmitting on:?06/21/2024 07:43 AM EDT
--- NOTE | 2024-06-21 07:53 | MHC.OFFVIS ---
Intake Visit Reasons: Follow up testosterone labs(set) Intake Note: Patient presents today for follow up on: testosterone labs Urology Medications: none Blood Thinner: none Curator Of Education Required: No Accompanied by: Self / Same As Patient Allergies No Known Allergies Allergy (Verified 06/21/24 21:59) Medication List - Last Reconciled 06/21/24 by KAYLAN Mondragon-ASHLEY diclofenac potassium 50 mg PO BID PRN methylphenidate HCl ER 36 mg PO QAM omeprazole 20 mg PO DAILY tizanidine 4 mg PO Q8H PRN 30 days HPI Comments Details: Kyle is a 48 year old male patient of Dr. Elizondo. He presents to the office today for follow-up of his nephrolithiasis, intermittent/ongoing testicular pain, and urinary issues. He has a past medical history of hyperlipidemia, anxiety, obesity, lumbar radiculopathy, and sleep disorder. In discussion with the patient today he reports to be doing and feeling well. He reports having lost approximately 22 lb intentionally over the last 8 months. We discussed borderline low testosterone and further treatment options and risks and benefits of these treatment options. Patient with a history of denervation for ongoing testicular pain with Dr. Gonzales 01/21. He does report having had an episode of flank pain however feels this is related to dehydration in describes this episode as a solitary event. We discussed further workup given patient's history of nephrolithiasis however he declines at this time. He otherwise denies any bothersome urinary issues. He reports wanting to continue working on his weight management prior to potential initiation of testosterone replacement. Renal u/s 09/22 notes bilateral kidneys with no calculi or hydronephrosis. Redemonstration of 3.4 cm upper pole cyst with benign features that requires no indication for follow-up imaging per radiology report. Previously patient had been worked up for possible hypogonadism given ongoing issues with fatigue. Urological labs as noted below. He has previously trialed low-dose Cialis however started experiencing increased back pain therefore it was discontinued. PSA 09/21 1.1 LH 05/23 4.9 Prolactin 05/23 7.1 SHBG 05/23 27 Testosterone: 02/20 319, 09/21 314, 02/21 199, 05/23 337, 07/23 330, 06/24 204 Free testosterone: 02/20 43.7, 09/21 44.0, 02/21 30.0, 05/23 58.0, 07/23 54.5, 06/24 4.8 Discussed at length importance of adequate sleep, healthy eating habits, weight loss, and daily exercise/brisk walking daily for further improvement in fatigue and mood as well as overall health and well-being. He otherwise denies urinary urgency, urinary frequency, incontinence, nocturia, hematuria, dysuria, foul smelling urine, changes to urinary stream, fever, and or chills. He is happy with his current voiding parameters. Discussion Notes The patient and I discussed his testosterone levels, which are currently at 204 ng/dL, below the desired threshold. I noted that his blood draw occurred later in the morning, which can affect testosterone levels, and recommended an aerial crop duster assessment for accuracy. We reviewed his significant intentional weight loss of 22 pounds over the past eight months and how this may impact his testosterone levels positively over time. Although testosterone replacement therapy was considered, the patient expressed concerns about its long-term impact on his body's natural testosterone production. We conversed about the non-permanent nature of such therapy and its uses beyond libido, including brain health and cardiovascular function. We will consider a re-evaluation in six months to allow for further weight loss and potential natural increases in testosterone levels. He also mentioned a transient episode of kidney pain linked to dehydration, which resolved with adequate hydration. Plan The patient's current management will allow ongoing assessment of hypogonadism while utilizing lifestyle changes. We discussed delaying testosterone replacement therapy due to concerns regarding its effects on endogenous production and hope that continued weight loss will yield beneficial effects on testosterone levels. We will reassess levels in six months. The management of obesity through exercise and diet has been communicated as essential, aiming for continued weight loss, with regular monitoring scheduled. Dehydration management is through increased fluid intake, and no further imaging is warranted at this time as per the patient's reporting of resolved symptoms. Previous office note information: Bilateral testicular pain following vasectomy Underwent bilateral micro denervation 01/21 with good initial effect Will continue to trend testosterone levels. Nephrolithiasis Had been seen in [facility] emergency room. Still has persistent right flank pain. Imaging - 05/20 ultrasound with right hydro ureteral nephrosis but no stone seen. Presumed distal to imaging - 06/20 CAMILA right renal cyst 2cm - 01/20 renal ultrasound right renal cyst 2 cm no evidence of stones Therapeutic plan - repeat imaging (renal ultrasound) increased fluid and watch salt [facility] Medical History Fatigue Physical exam Urinary dribbling Urinary urgency Foot pain Right hip pain Muscle spasm of back Orchalgia Light headedness Body aches Difficulty urinating Skin lesion Back pain Arthritis Sleep disorder Renal calculi Depression Lumbar facet arthropathy Low back pain Hyperlipidemia Obesity Anxiety Surgical History History of back surgery History of testicular surgery H/O elbow surgery History of vasectomy Family History Father No problems noted. Mother No problems noted. Social History Housing: House Are you a primary wound care physician to a significant other at home: No Do you presently have visiting nurse or other home services: No Alcohol intake: never Patient Tobacco Use Status: Never used Tobacco e-Cigarette/Vaping Use: Never Used Second Hand Smoke Exposure: No service: Yes Current occupational status: employed Cognitive needs: No Hearing needs: No Vision needs: No Review of Systems Const All systems reviewed & are unremarkable except as noted in HPI and below Reports no additional complaints Eyes Reports no additional complaints ENT Reports no additional complaints Card Reports no additional complaints Resp Reports no additional complaints GI Reports no additional complaints Reports as per HPI Musc Reports no additional complaints Neuro Reports no additional complaints Psych Reports as per HPI Endo Reports no additional complaints Dick/Lymph Reports no additional complaints Aller/Immun Reports no additional complaints Physical Exam Const General: cooperative, healthy appearing, comfortable, no acute distress, well developed, alert and awake Orientation/consciousness: patient oriented x3 Limitations: no limitations HEENT Head: Yes normal to inspection, Yes normocephalic and Yes atraumatic Ears: hearing grossly normal bilaterally Eyes General: appearance normal, both eyes and all related structures Neck Neck: Yes normal visual inspection and Yes trachea midline Chest Chest palpation & inspection: normal inspection of the chest Resp Effort & Inspection: normal respiratory effort and able to speak in complete sentences Cardio Rate: regular rate GI Inspection: Yes normal to inspection General: Yes no CVA tenderness Back/Spine/Pelvis Back: no CVA tenderness Skin General skin exam: no rashes or lesions noted Neuro General: patient oriented x3 Extrem General: Yes normal to inspection Psych Appearance: grossly normal and well kempt Mental Status: mental status grossly normal Speech and movement: Normal speech and movement present and Clear speech present Affect: normal affect Attitude: cooperative Thought process: Normal thought process present Thought content: Normal thought content present Insight: Fair insight present (Psych) Judgement: Fair judgement present (Psych) Results AMB Urinalysis, Automated UA Leukoctes 0 Keisha/uL Last Edit by Pinocularnesha Manzanares on 06/21/24 08:47 UA Nitrite Last Edit by Pinocularnesha Needlcorinne on 06/21/24 08:47 UA Urobilinogen 0.2 mg/dL Last Edit by Five minutescorinne on 06/21/24 08:47 UA Protein 0 mg/dL Last Edit by Five minutescorinne on 06/21/24 08:47 UA pH 6.0 Last Edit by Pinocularnesha Needlcorinne on 06/21/24 08:47 UA Blood 0 Kwasi/uL Last Edit by Five minutescorinne on 06/21/24 08:47 UA Specific [place] 1.015 Last Edit by Five minutescorinne on 06/21/24 08:47 UA Ketone Last Edit by Five minutescorinne on 06/21/24 08:47 UA Bilirubin 0 mg/dL Last Edit by Five minutescorinne on 06/21/24 08:47 UA Glucose 0 mg/dL Last Edit by Pinocularnesha Needlcorinne on 06/21/24 08:47 Results Reviewed Results Reviewed: Laboratory Last Values Urine pH (Auto) 6.0 06/21/24 08:46 Specific [place] (Auto) 1.015 06/21/24 08:46 Urine Protein (Auto) 0 mg/dL 06/21/24 08:46 Glucose (UA)(Auto) 0 mg/dL 06/21/24 08:46 Urine Blood (Auto) 0 Kwasi/uL 06/21/24 08:46 Urine Bilirubin (Auto) 0 mg/dL 06/21/24 08:46 Urine Urobilinogen (Auto) 0.2 mg/dL 06/21/24 08:46 Leukocyte Esterase (Auto) 0 Keisha/uL 06/21/24 08:46 Assessment & Plan Assessment & Plan (1) Hypogonadism in male: Code(s): E29.1 - Testicular hypofunction Category: Medical Plan In office urinalysis results reviewed with the patient today; as noted above. Recent labs were reviewed with the patient today; as noted above. We discussed hypogonadism; treatment options; risks and benefits of these treatment options. Will continue with surveillance monitoring at this time per patient request. He otherwise offers no other issues or concerns at this time. Will obtain testosterone, free testosterone, and LH in 6 months. Follow-up in 6 months with labs to be completed prior; or sooner with any issues, concerns, and or questions. Orders: Orders Lutenizing Hormone 6 Months E29.1 - Testicular hypofunction Testosterone, Free/Total 6 Months E29.1 - Testicular hypofunction AMB Urinalysis Automated Today Z13.9 - Encounter for screening, unspecified Patient Instructions: The patient had an opportunity to ask questions regarding the treatment plan. All questions were answered. Physical exam, labs, and imaging were discussed and reviewed in detail. As well as risks, benefits, and discussion of treatment choices. No major barriers to understanding were identified. The patient expressed understanding and agreement with the above treatment plan. The patient was made aware they should contact our office by phone for worsening of their current condition, the appearance of new symptoms, or with any questions or concerns. Compliance is encouraged with any medications and follow up testing that is ordered. It is a privilege to be allowed the opportunity to participate in? your urological care.? Again, if you have any questions or concerns If you have any questions or concerns please do not hesitate to contact me. The office is [phone]. This note is constructed using voice recognition software. While every effort has been made to ensure accuracy riveter hand errors may have been included. Yours sincerely, ASHELY Mondragon Coding Level of Care Code Est Pt Level 3 (02444) Diagnoses Hypogonadism in male E29.1
== END 2024-06-21 08:23 | disposition home or self-care (01) ==
LOC: HO.HUSH 07:41
PROVIDERS: PCP Internal Medicine; Visit Provider Nurse Practitioner Family
DX: Z13.9 Encounter for screening, unspecified (principal); E29.1 Testicular hypofunction
CPT/HCPCS: 99213

== ENCOUNTER → 2024-06-21 07:40 | Outpatient (BNVA) | payer OTHER, SELFPAY | PROVIDERS: PCP Internal Medicine; Visit Provider Nurse Practitioner Family | DX: E29.1 Testicular hypofunction (principal); Z87.442 Personal history of urinary calculi | CPT/HCPCS: 81003 ==

== ENCOUNTER 2024-08-10 07:55 | Outpatient (AMB) | payer OTHER, SELFPAY ==
[2024-08-10 07:57] VITALS: BP 130/82; BMI 31.5
--- NOTE | 2024-08-10 07:57 | MHC.OFFVIS ---
Vital Signs 08/10/24 07:57 Height 5 ft 9 in Weight 213 lb BMI 31.5 BP 130/82 Blood Pressure Location Rt brachial Position Sitting Intake Visit Reasons: 6 mnts f/u appt Intake Note: Patient presents for follow up provider note on draft. Allergies No Known Allergies Allergy (Verified 08/10/24 08:00) Medication List - Last Reconciled 08/10/24 by Eri Lei MD diclofenac potassium 50 mg PO BID PRN methylphenidate HCl ER 36 mg PO QAM omeprazole 20 mg PO DAILY tizanidine 4 mg PO Q8H PRN 30 days HPI Comments Details: 48y/o male with snoring and excessive daytime sleepiness . He had 2 inconclusive sleep studies . His recent ( 01/23) in lab sleep study was c/w mild sleep apnea.AHI 10/hr ) 2 pranav 87 % - more on Right side. He lost about 15 lbs since his sleep study and wants to try a different option other than CPAP due to difficulty sleeping with CPAP. His main symptoms , snoring, excessive daytime sleepiness, fatigue, leg spasms at night, restless legs, trouble falling and staying asleep, GERD at night. He denies any abnormal sleep behavior, denies nocturia. [facility] Medical History Obstructive sleep apnea Fatigue Physical exam Urinary dribbling Urinary urgency Foot pain Right hip pain Muscle spasm of back Orchalgia Light headedness Body aches Difficulty urinating Skin lesion Back pain Arthritis Sleep disorder Renal calculi Depression Lumbar facet arthropathy Low back pain Hyperlipidemia Obesity Anxiety Surgical History History of back surgery History of testicular surgery H/O elbow surgery History of vasectomy Family History Father No problems noted. Mother No problems noted. Social History Housing: House Are you a primary assurance services manager health care to a significant other at home: No Do you presently have visiting nurse or other home services: No Alcohol intake: never Patient Tobacco Use Status: Never used Tobacco e-Cigarette/Vaping Use: Never Used Second Hand Smoke Exposure: No service: Yes Current occupational status: employed Cognitive needs: No Hearing needs: No Vision needs: No Physical Exam Vital Signs: Last Vital Signs BP 130/82 08/10/24 07:57 BMI result Body Mass Index 31.5 Const General: cooperative, healthy appearing, comfortable, no acute distress and well developed Nutritional Appearance: overweight Orientation/consciousness: patient oriented x3 Eyes Pupils: Equal, round and reactive pupils present Neuro General: patient oriented x3, gait normal, tone normal, moves all extremities and no focal motor deficits Cranial nerves: Yes Facial sensation intact/muscles of mastication intact, Yes Equal, round and reactive pupils present, Yes Bilaterally intact EOM present, Yes Nystagmus not present, Yes Normal facial strength present and Yes Midline tongue present Gait exam (Neuro): Normal gait present Assessment & Plan Assessment & Plan (1) Obstructive sleep apnea: Comment: AHI 10 O2 pranav 87% Code(s): G47.33 - Obstructive sleep apnea (adult) (pediatric) Category: Medical Plan I will refer him to [facility] for oral mandibular device. Avoid sleeping on the right side can use body pillow. Orders: Referrals Dentistry Referral G47.33 - Obstructive sleep apnea (adult) (pediatric) Coding Level of Care Code Est Pt Level 4 (72542) Diagnoses Obstructive sleep apnea G47.33
--- OUTSIDE RECORDS SUMMARY | 2024-08-10 07:58 | XMS_ITS | Encounter Summary ---
Author Name [facility] Organization [facility] Address [address] [place] [address] Care Team Providers Care Luster Applicator Name Role Phone BUTLERMARTI Primary Care Provider Unavailabl e Selected Encounter This section includes the information on record at MD for the Encounter. Date/Time Encounter Type Encounter Description Reason Provider Source Feb 04, 2024 09:30 AM OFFICE O/P EST LOW 20 MIN [facility] - [facility] ICD-10-CM F90.0 Attn-defct hyperactivity disorder, predom inattentive type ITALO HOLM Judith Encounter Template Text not used by MD [...] 04:30 PM AMBULATORY - [facility]ICIN E [facility] Mar 28, 2024 03:00 PM [facility]UL[facility] - MEDICINE [facility] Apr 07, 2024 10:30 AM AMBULATORY - PSYCHIATRY [facility] Jun 09, 2024 11:00 AM [facility] July 22, 2024 08:30 AM [facility] Social History: Smoking Status (Most current) and Tobacco Use (All prior to encounter date) This section includes the most current, and the historical, smoking and tobacco- related health factors from the MD facility where the Encounter took place. Current Smoking Status This section includes the most current smoking, or tobacco-related health factor, from the MD facility where the Encounter took place. Date/Time Current Smoking Status Comment Facil ity July 16, 2023 08:30 AM MD-TOBACCO NEVER USED [facility] Radiology Reports: +/- 30 days of the [...] the Encounter. The data comes from all MD treatment facilities. Date/Time Radiology Report Provider Source Feb 01, 2024 09:32 AM ELBOW 3 OR MORE VIEWS(LEFT): MACK DIANE [id number] -1975 [facility] Date: FEB 01, 2024@09:32 Req Phys: AG CROWLEY Loc: [facility]/NO/MED REHAB 1 PA (Req'g L Img Loc: [facility]/BUILDING 1 Service: [facility] [place] [address] (Case 15 COMPLETE) ELBOW 3 OR MORE VIEWS(LEFT) (RAD Detailed) CPT:09414 Reason for Study: left elbow pain Clinical History: Report Status: Verified Date Reported: FEB 01, 2024 Date Verified: FEB 01, 2024 Installment Loan Collector E-Sig:/ES/JESS ALVAREZ JR Report: Study: AP, lateral [...] Primary Interpreting Staff: JESS ALVAREZ JR, Radiologist (Installment Loan Collector) /JESS JARAMILLO JR [facility] Feb 01, 2024 09:32 AM SHOULDER,COMPLETE( RIGHT): MACK DIANE [id number] -1975 [facility] Date: FEB 01, 2024@09:32 Req Phys: AG CROWLEY Loc: [facility]/NO/MED REHAB 1 PA (Req'g L Img Loc: [facility] Service: [place] [address] (Case 14 COMPLETE) SHOULDER,COMPLETE(RIGHT) (RAD Detailed) CPT:63718 Reason for Study: right shoulder pain Clinical History: Report Status: Verified Date Reported: FEB 01, 2024 Date Verified: FEB 01, 2024 Installment Loan Collector E-Sig:/ES/JESS ALVAREZ JR Report: Study: AP internally [...] Primary Interpreting Staff: JESS ALVAREZ JR, Radiologist (Installment Loan Collector) /JESS JARAMILLO JR [facility] Encounter Notes: All associated encounter notes This section contains the clinical notes associated to the Encounter. Date/Time Encounter Note(s) Provider Source Feb 04, 2024 09:30 AM TELEHEALTH NOTE: LOCAL TITLE: MD VIDEO CONNECT PSYCHIATRIST NOTE STANDARD TITLE: TELEHEALTH NOTE DATE OF NOTE: FEB 04, 2024@09:30 ENTRY DATE: FEB 04, 2024@09:31:25 AUTHOR: JULIO HOLM COSIGNER: URGENCY: STATUS: COMPLETED [facility] (VVC) Standard Documentation VVC Clinician Resources Only: E911 (Emergency Call Relay Center): [phone] [facility] Crisis Line - 988 then press #1. CW Suicide Coordinator [phone], Ext. [phone]; Back-up Ext. [phone] MD Police, Lotus LUQUE [phone] Introduction: Visit is being conducted by MD [place]!. [place] identified with 2 identifiers: [X] Full Name [X] Date of [ ] MD ID Card Emergency Plan: confirmed and/or provided the following information in case of emergency or technology failure. PATIENT PHONE - PHONE NUMBER [CELLULAR] - Is patient phone number correct, if not, enter below: 's phone number: MACK DIANE [address], [place], [address] [place]'s present location and address for appointment: same as above [place]'s emergency contact name and phone number: unchanged reported that location is private and safe: Yes Informed Consent: informed of the risks and benefits of Telehealth video care. has the right to refuse video services. If refuses video visit, a [id number] visit will be scheduled. verbalized consent for this video visit: Yes [place] provided consent for any other persons present [...] He is beginning a Bachelor's Degree at [employer]. He has 2 associates degrees. He [...] difficulty completing projects, focusing when reading, studying. [place] also had 5 deployments, and experienced rocket [...] ), and feeling down and depressed. The [place] has no struggles with substance use. He [...] years to get to that point. Deployments: [facility], I felt like if I [...] before i got out. I was in [facility] Mar 2018- said she was [...] he was diagnosed with ADHD at the [facility] by Teofilo Velásquez a few months [...] usual? no Outpatient Treatment: Current: Teofilo at [facility]. He talks me off the ledge. Helps me maintain perspective. Tells me I'm normal. Prior: [id number], threw a chair against a wall, software tools developer were called, and they said we had [...] ADHD, no meds) SOCIAL STATUS: June 2000- children. No previous marriages. No divorces. Work [...] not reminded of helicopter, mentor suicide, and shelter. The ending really spoiled everything. HISTORY: see record Occupation: Currently unemployed after retiring from the . Was unable to find work. Back in school now for a bachelors degree- [employer]. INITIAL ASSESSMENT/ DIAGNOSIS AND RECOMMENDATIONS: presents [...] warnings reviewed. NOTED AT LAST OP VISIT: [place] reports medicine is doing great. I can tell a difference when I'm out. I noticed an increased amount of focus. I think it works really well at this dose. No changes made. PRESENTING SYMPTOMS AND CONDITION ON TODAY'S VISIT: [place] reports everything seems to be working out [...] If urgent treatment is needed, call [phone], [phone] or go to the nearest Emergency Room 2. To schedule or change an appointment, inquire about medication refills, etc: call office number during normal office hours Diagnoses: Attention deficit hyperactivity disorder, predominantly inattentive type (SCT [id number]) - Attention-deficit hyperactivity disorder, predominantly inattentive type (ICD-10-CM F90.0) (Primary) Moderate major depression (SCT 228483) - Major depressive disorder, recurrent, moderate (ICD-10-CM F33.1) /cherri/ JULIO HOLM M.D. Signed: 02/04/2024 09:43 JULIO HOLM Feb 01, 2024 10:44 AM MENTAL HEALTH MEDI CATION MGT NOTE: LOCAL TITLE: MHC/MEDICATION REFIL NOTE STANDARD TITLE: MENTAL HEALTH MEDICATION MGT NOTE DATE OF NOTE: FEB 01, 2024@10:44 ENTRY DATE: FEB 01, 2024@10:44:50 AUTHOR: NITA SUAREZ EXP COSIGNER: URGENCY: STATUS: COMPLETED TW spoke with [place] and he needa a refill.. /cherri/ NITA SUAREZ PRODUCTION LEADER Signed: 02/01/2024 10:45 Receipt Acknowledged By: 02/01/2024 11:27 /NITA Summers M.D.
== END 2024-08-10 08:27 | disposition home or self-care (01) ==
LOC: HO.HSMS 07:56
PROVIDERS: PCP Internal Medicine; Visit Provider Psychiatry & Neurology Neurology
DX: G47.33 Obstructive sleep apnea (adult) (pediatric) (principal)
CPT/HCPCS: 99214

== ENCOUNTER → 2024-08-10 07:55 | Outpatient (BNVA) | payer OTHER, SELFPAY | PROVIDERS: PCP Internal Medicine; Visit Provider Psychiatry & Neurology Neurology ==

== ENCOUNTER 2024-11-07 08:04 | Outpatient (REF) | payer OTHER, SELFPAY ==
--- OUTSIDE RECORDS SUMMARY | 2023-08-12 10:40 | XMS_ITS ---
Author Organization [facility] Address [address] [place] [phone] Care Team Providers Care Tariff Clerk Name Role Phone Ricci NUNEZ, Mateusz Primary Care Provider Raul Contreras [phone] REASON FOR VISIT DYSPHAGIA Encounters Encounter Location Date Provider Diagnosis [facility] [address] [facility] [address] [place] [phone] 08/12/2023 Raul Schultz Plan Of Treatment No Information Progress Notes * MACK HURTADODOB:1975 (48 yo M)Acc No.[id number]:08/12/2023 Progress Notes Patient: MACK TRAN Provider: Alek Schultz MD :1975 A ge:47 Y S ex:Male Date:08/12/2023 Address:[address] [place], [place] [phone] Pcp:Mateusz Wynne MD Subjective: * Chief Complaints: * 1 . DYSPHAGIA. * Medical History: Objective: * Vitals: Assessment: Plan: * Treatment: * * The named appointment provid er may or may not be the originator of this progress note, and it is not deemed complete until electronically signed by the appointment provider. Sign off status: Pending * Provider: Alek Schultz MD Date: 0 08/12/2023 Generated for Jenna ng/Faenidg/eTransmitting on: 0 11/07/2024 08:42 AM EDT
--- OUTSIDE RECORDS SUMMARY | 2024-11-07 08:43 | XMS_ITS | Patient Health Record ---
Author Organization [facility] Address [address] [place] [address] Care Team Providers Care Occupational Medicine Physician Name Role Phone Mateusz Wynne MD Primary Care Provider Raul Contreras Unavailable [phone] Allergies No Known Allergies Reason For Referral [...] amounts of alcohol He is originally from [place], [place] He doesn't smoke or use any significant amounts of alcohol He is originally from [place], [place] He doesn't smoke or use any significant amounts of alcohol He is originally from [place], [place] Problems Problem Type SNOMED Code ICD Code Onset Dates Problem Status W/U Status Risk Notes Problem 363190769 Colon cancer screening (Z12.11) Active confirmed Problem Dysphagia (01032045) Dysphagia (R13.10) Active confirmed Problem 34538842 Pharyngoesophage al dysphagia (R13.14) Active confirmed Problem 023644845 Gastroesophageal reflux disease, unspecified whether esophagitis present (K21.9) Active confirmed Problem Gastroesophageal reflux disease (869383289) Chronic GERD (K21.9) Active confirmed Vital Signs Blood pressure diastolic 00 mm Hg 12/08/2023 Height 5 ft 9 in in 12/08/2023 Blood pressure systolic 00 mm Hg 12/08/2023 Weight 233 lbs 12/08/2023 BMI 34.40 kg/m2 12/08/2023 Encounters Encounter Location Date Provider Diagnosis [facility] [address] [place] [address] 12/08/2023 Raul Schultz Gastroesophageal ref lux disease, unspecified whether esophagitis present K21.9 and Chronic GERD K21.9 [facility] [address] [place] [address] 12/08/2023 Raul Schultz Assessments Encounter Date Diagnosis [...] Insured Coverage Start Date Coverage End Date [facility] HEALTH PLAN (REFERRA L NEEDED) [address] [place] [address] [id number] MACK HURTADO Self - patient is the insured Medical (General) History Medical History History ICD Code Kidney stones--sees Dr Gonzales Denies [place],CVA,Lung disease,renal dise ase He describes lactose intolerance [...] Vasectomy RFA and Back injections-Dr. Meyer at [facility]
--- OUTSIDE RECORDS SUMMARY | 2024-11-07 08:43 | XMS_ITS | Patient Health Record ---
Author Organization [facility] [place] Address [address] [place] [address] Care Team Providers Care System Dispatcher Name Role Phone Ricci NUNEZ, Mateusz Primary Care Provider Lisa Browning Unavailable [phone] Allergies No Known Allergies Reason For Referral [...] Insured Coverage Start Date Coverage End Date [facility] [address] [place] [id number] Kyle Diane Self - patient is the insured Medical (General) History Medical History History ICD Code Anxiety Arthritis Back,Hip,and Knee pain Depression Headaches/Migraines Chicken pox Surgical History Surgery Date(Month/Year) ulner nerve relocation 2011, 2012
--- OUTSIDE RECORDS SUMMARY | 2024-11-07 08:43 | XMS_ITS | Clinical Summary ---
Author Organization [facility] ity Address [address] [place] [address] Care Team Providers Care Conductor/Engineer Name Role Phone Unavailable Primary Care Provider Unavailabl e Social History Tobacco Use Types Packs/Day Years Used Date Smoking Tobacco: Never Assessed Sex and Gender Information Value Date Recorded Sex Assigned at Not on file Legal Sex Male 5:44 PM EST Gender Identity Not on file Sexual Orientation Not on file Plan of Treatment Health Maintenance Due Date Last Done Comments Cholesterol Screening (Lipid Panel) 09/29/2023 Colorectal Cancer Screening: Colonoscopy 09/29/2023 HIV Screening 09/29/2023 Hepatitis C Screening 09/29/2023 Social Influencers of Health Screening 09/29/2023 Depression Screening 03/02/2024 COVID-19 Vaccine ( season) 2024 07/20/2020, 06/22/2020 Influenza Vaccine (#1) 2024 2, 03/10/2021, 01/08/2020, Additional history exists DTaP,Tdap,and Td Vaccines (4 - Td or Tdap) 02/04/2030 02/05/2020, 05/23/2010, 01/06/2001 Hepatitis A Vaccines Aged Out 01/31/2002, 08/22/19 01 No longer eligible based on patient's age to complete this topic Hepatitis B Vaccines Completed 07/13/2008, 11/24/2007, 06/10/2007 Meningococcal ACWY Vaccine Aged Out 07/28/2008, No longer eligible based on patient's age to complete this topic IPV Vaccines Completed 09/01/2017, 05/31, 08/14/2000 MMR Vaccines Aged Out 10/26/2017, 09/01/2017 No lo nger eligible based on patient's age to complete this topic HIB Vaccines Aged Out No longer eligi ble based on patient's age to complete this topic HPV Vaccines Aged Out No longer eligi ble based on patient's age to complete this topic Meningococcal B Vaccine Aged Out No l onger eligible based on patient's age to complete this topic Pneumococcal Vaccine: Pediatrics (0 to 5 Years) and At-Risk Patients (6 to 49 Years) Aged Out No longer eligible based on patient's age to complete this topic RSV Immunization Patients Under 20 months Aged Out No longer eligible based on patient's age to complete this topic Varicella Vaccines Aged Out No longer eligible based on patient's age to complete this topic
[2024-11-12 18:49] LABS: Testosterone, Free 67.8 pg/mL (35.0-155.0)
== END 2024-11-07 08:05 | disposition home or self-care (01) ==
LOC: HO.LAB 08:04
PROVIDERS: Visit Provider Nurse Practitioner Family
DX: E29.1 Testicular hypofunction (principal); R53.83 Other fatigue
CPT/HCPCS: 36415; 83002; 84402; 84403

== ENCOUNTER 2024-11-28 07:40 | Outpatient (AMB) | payer OTHER, SELFPAY ==
--- OUTSIDE RECORDS SUMMARY | 2023-08-12 10:40 | XMS_ITS ---
Author Organization [facility] Address [address] [place] [phone] Care Team Providers Care Hydro Plant Technician Name Role Phone Ricci NUNEZ, Mateusz Primary Care Provider Raul Contreras [phone] REASON FOR VISIT DYSPHAGIA Encounters Encounter Location Date Provider Diagnosis [facility] [address] [facility] [address] [place] [phone] 08/12/2023 Raul Schultz Plan Of Treatment No Information Progress Notes * MACK HURTADODOB:1975 (49 yo M)Acc No.[id number]:08/12/2023 Progress Notes Patient: MACK TRAN Provider: Alek Schultz MD :1975 A ge:47 Y S ex:Male Date:08/12/2023 Address:[address] [place], [place] [phone] Pcp:Mateusz Wynne MD Subjective: * Chief Complaints: [...] 08/12/2023 Generated for Jenna ng/Faenidg/eTransmitting on: 0 11/28/2024 07:42 AM EDT
--- NOTE | 2024-11-28 07:42 | A.OFFVIS_ITS ---
Intake Visit Reasons: 6m/Testo Intake Note: Patient presents today for 6 mo follow up on: testosterone labs Urology Medications: none Blood Thinner: none Labs done: 11/07/24: LH 2.5, Total testosterone 411, Fr Testosterone 67.8 Aerospace Stress Engineer Required: No Accompanied by: Self / Same As Patient Allergies No Known Allergies Allergy (Verified 11/28/24 08:18) Medication List - Last Reconciled 11/28/24 by ASHELY Mondragon aspirin (Adult Low Dose Aspirin) 81 mg PO DAILY atorvastatin (Lipitor) 80 mg PO DAILY clopidogrel 75 mg PO DAILY diclofenac potassium 50 mg PO BID PRN doxycycline hyclate 50 mg PO DAILY isosorbide dinitrate 30 mg PO BID methylphenidate HCl ER 36 mg PO QAM omeprazole 20 mg PO DAILY tizanidine 4 mg PO Q8H PRN 30 days HPI Comments Details: Kyle is a 49 year old male patient of Dr. Elizondo. He presents to the office today for follow-up of his nephrolithiasis, intermittent/ongoing testicular pain, and urinary issues. He has a past medical history of hyperlipidemia, anxiety, obesity, lumbar radiculopathy, and sleep disorder. In discussion with the patient today he reports to be doing and feeling well. He reports having lost approximately 20 lb intentionally over the last year. He discusses having recently seeked emergency room care at [facility] for what he thought was musculoskeletal pain however was recently diagnosed with having had a CT. He reports he is due to follow-up with cardiology within the next 2-3 weeks. He also reports having followed up with a functional medicine provider in his is currently on doxycycline for elevated/active Lyme disease markers that were noted. Recent labs were reviewed with the patient today as noted and trended below. We did discussed increase in testosterone levels. In office urinalysis results reviewed with the patient today. Patient with a history of denervation for ongoing testicular pain with Dr. Gonzales 01/21. He otherwise denies any bothersome urinary issues. Previous workup has included a renal ultrasound 09/22 noting bilateral kidneys with no calculi or hydronephrosis. Redemonstration of 3.4 cm upper pole cyst with benign features that requires no indication for follow-up imaging per radiology report. Previously patient had been worked up for possible hypogonadism given ongoing issues with fatigue. He has previously trialed low-dose Cialis however started experiencing increased back pain therefore it was discontinued. PSA 09/21 1.1 LH 05/23 4.9, 11/24 2.5 Prolactin 05/23 7.1 SHBG 05/23 27 Testosterone: 02/20 319, 09/21 314, 02/21 199, 05/23 337, 07/23 330, 11/24 411 Free testosterone: 02/20 43.7, 09/21 44.0, 02/21 30.0, 05/23 58.0, 07/23 54.5, 11/24 67.8 Discussed at length importance of adequate sleep, healthy eating habits, weight loss, and daily exercise/brisk walking daily for further improvement in fatigue and mood as well as overall health and well-being. He otherwise denies urinary urgency, urinary frequency, incontinence, nocturia, hematuria, dysuria, foul smelling urine, changes to urinary stream, fever, and or chills. He is happy with his current voiding parameters. Nephrolithiasis Had been seen in [facility] emergency room. Still has persistent right flank pain. Imaging - 05/20 ultrasound with right hydro ureteral nephrosis but no stone seen. Presumed distal to imaging - 06/20 CAMILA right renal cyst 2cm - 01/20 renal ultrasound right renal cyst 2 cm no evidence of stones Therapeutic plan - repeat imaging (renal ultrasound) increased fluid and watch [facility] Medical History Obstructive sleep apnea Fatigue Physical exam Urinary dribbling Urinary urgency Foot pain Right hip pain Muscle spasm of back Orchalgia Light headedness Body aches Difficulty urinating Skin lesion Back pain Arthritis Sleep disorder Renal calculi Depression Lumbar facet arthropathy Low back pain Hyperlipidemia Obesity Anxiety Surgical History History of back surgery History of testicular surgery H/O elbow surgery History of vasectomy Family History Father No problems noted. Mother No problems noted. Social History Housing: House Are you a primary foster care case manager to a significant other at home: No Do you presently have visiting nurse or other home services: No Alcohol intake: never Patient Tobacco Use Status: Never used Tobacco e-Cigarette/Vaping Use: Never Used Second Hand Smoke Exposure: No service: Yes Current occupational status: employed Cognitive needs: No Hearing needs: No Vision needs: No Review of Systems Const All systems reviewed & are unremarkable except as noted in HPI and below Reports no additional complaints Eyes Reports no additional complaints ENT Reports no additional complaints Card Reports no additional complaints Resp Reports no additional complaints GI Reports no additional complaints Reports as per HPI Musc Reports no additional complaints Neuro Reports no additional complaints Psych Reports as per HPI Endo Reports no additional complaints Dick/Lymph Reports no additional complaints Aller/Immun Reports no additional complaints Physical Exam Const General: cooperative, healthy appearing, comfortable, no acute distress, well developed, alert and awake Orientation/consciousness: patient oriented x3 Limitations: no limitations HEENT Head: Yes normal to inspection, Yes normocephalic and Yes atraumatic Ears: hearing grossly normal bilaterally Eyes General: appearance normal, both eyes and all related structures Neck Neck: Yes normal visual inspection and Yes trachea midline Chest Chest palpation & inspection: normal inspection of the chest Resp Effort & Inspection: normal respiratory effort and able to speak in complete sentences Cardio Rate: regular rate GI Inspection: Yes normal to inspection General: Yes no CVA tenderness Back/Spine/Pelvis Back: no CVA tenderness Skin General skin exam: no rashes or lesions noted Neuro General: patient oriented x3 Extrem General: Yes normal to inspection Psych Appearance: grossly normal and well kempt Mental Status: mental status grossly normal Speech and movement: Normal speech and movement present and Clear speech present Affect: normal affect Attitude: cooperative Thought process: Normal thought process present Thought content: Normal thought content present Insight: Fair insight present (Psych) Judgement: Fair judgement present (Psych) Results AMB Urinalysis, Automated UA Leukoctes 0 Keisha/uL Last Edit by CRISTOBAL Santana on 11/28/24 07:58 UA Nitrite Negative Last Edit by CRISTOBAL Santana on 11/28/24 07:58 UA Urobilinogen 3.5 mg/dL Last Edit by CRISTOBAL Santana on 11/28/24 07:5 8 UA Protein 0 mg/dL Last Edit by Marjan Bernard [facility] on 11/28/24 07:58 UA pH 5.5 Last Edit by Marjan Bernard [facility] on 11/28/24 07:58 UA Blood 0 Kwasi/uL Last Edit by Marjan Bernard [facility] on 11/28/24 07:58 UA Specific [place] 1.025 Last Edit by Marjan Bernard [facility] on 11/28/24 07: 58 UA Ketone Negative Last Edit by Marjan Bernard [facility] on 11/28/24 07:58 UA Bilirubin 0 mg/dL Last Edit by Marjan Bernard [facility] on 11/28/24 07:58 UA Glucose 0 mg/dL Last Edit by Marjan Bernard [facility] on 11/28/24 07:58 Results Reviewed Results Reviewed: Laboratory Last Values Urine pH (Auto) 5.5 11/28/24 07:57 Specific [place] (Auto) 1.025 11/28/24 07:57 Urine Protein (Auto) 0 mg/dL 11/28/24 07:57 Glucose (UA)(Auto) 0 mg/dL 11/28/24 07:57 Urine Ketones (Auto) Negative 11/28/24 07:57 Urine Blood (Auto) 0 Kwasi/uL 11/28/24 07:57 Urine Nitrite (Auto) Negative 11/28/24 07:57 Urine Bilirubin (Auto) 0 mg/dL 11/28/24 07:57 Urine Urobilinogen (Auto) 3.5 mg/dL 11/28/24 07:57 Leukocyte Esterase (Auto) 0 Keisha/uL 11/28/24 07:57 Assessment & Plan Assessment & Plan (1) Hypogonadism in male: Code(s): E29.1 - Testicular hypofunction Category: Medical Plan In office urinalysis results reviewed with the patient today; as noted above. Recent labs were reviewed with the patient today; as noted above. We discussed hypogonadism Will continue with surveillance monitoring at this time per patient request. He otherwise offers no other issues or concerns at this time. Will obtain testosterone, free testosterone, PSA, and LH in 6 months. Follow-up in 6 months with labs to be completed prior; or sooner with any issues, concerns, and or questions. Orders: Orders AMB Urinalysis Automated Today Z13.9 - Encounter for screening, unspecified Prostate Specific Antigen Today E29.1 - Testicular hypofunction Testosterone, Total 6 Months E29.1 - Testicular hypofunction Lutenizing Hormone 6 Months E29.1 - Testicular hypofunction Patient Instructions: The patient had an opportunity to ask questions regarding the treatment plan. All questions were answered. Physical exam, labs, and imaging were discussed and reviewed in detail. As well as risks, benefits, and discussion of treatment choices. No major barriers to understanding were identified. The patient expressed understanding and agreement with the above treatment plan. The patient was made aware they should contact our office by phone for worsening of their current condition, the appearance of new symptoms, or with any questions or concerns. Compliance is encouraged with any medications and follow up testing that is ordered. It is a privilege to be allowed the opportunity to participate in? your urological care.? Again, if you have any questions or concerns If you have any questions or concerns please do not hesitate to contact me. The office is [phone]. This note is constructed using voice recognition software. While every effort has been made to ensure accuracy measuring machine operator errors may have been included. Yours sincerely, ASHELY Mondragon Coding Level of Care Code Est Pt Level 3 (49338) Diagnoses Hypogonadism in male E29.1
--- OUTSIDE RECORDS SUMMARY | 2024-11-28 07:43 | XMS_ITS | Patient Health Record ---
Author Organization [facility] [place] Address [address] [place] [address] Care Team Providers Care Desulfurizer Hand Name Role Phone Ricci NUNEZ, Mateusz Primary Care Provider Lisa Browning Unavailable [phone] Allergies No Known Allergies Reason For Referral [...] Insured Coverage Start Date Coverage End Date [facility] [address] [place] [id number] Kyle Diane Self - patient is the insured Medical (General) History Medical History History ICD Code Anxiety Arthritis Back,Hip,and Knee pain Depression Headaches/Migraines Chicken pox Surgical History Surgery Date(Month/Year) ulner nerve relocation 2011, 2012
--- OUTSIDE RECORDS SUMMARY | 2024-11-28 07:43 | XMS_ITS | Patient Health Record ---
Author Organization [facility] Address [address] [place] [address] Care Team Providers Care Vinyl Flooring Installer Name Role Phone Mateusz Wynne MD Primary Care Provider Raul Contreras Unavailable [phone] Allergies No Known Allergies Reason For Referral [...] amounts of alcohol He is originally from [place], [place] He doesn't smoke or use any significant amounts of alcohol He is originally from [place], [place] He doesn't smoke or use any significant amounts of alcohol He is originally from [place], [place] Problems Problem Type SNOMED Code ICD Code Onset Dates Problem Status W/U Status Risk Notes Problem 365193881 Colon cancer screening (Z12.11) Active confirmed Problem Dysphagia (93628737) Dysphagia (R13.10) Active confirmed Problem 13587387 Pharyngoesophage al dysphagia (R13.14) Active confirmed Problem 505946354 Gastroesophageal reflux disease, unspecified whether esophagitis present (K21.9) Active confirmed Problem Gastroesophageal reflux disease (659134078) Chronic GERD (K21.9) Active confirmed Vital Signs Blood pressure diastolic 00 mm Hg 12/08/2023 Height 5 ft 9 in in 12/08/2023 Blood pressure systolic 00 mm Hg 12/08/2023 Weight 233 lbs 12/08/2023 BMI 34.40 kg/m2 12/08/2023 Encounters Encounter Location Date Provider Diagnosis [facility] [address] [place] [address] 12/08/2023 Raul Schultz Gastroesophageal ref lux disease, unspecified whether esophagitis present K21.9 and Chronic GERD K21.9 [facility] [address] [place] [address] 12/08/2023 Raul Schultz Assessments Encounter Date Diagnosis [...] Insured Coverage Start Date Coverage End Date [facility] HEALTH PLAN (REFERRA L NEEDED) [address] [place] [address] [id number] MACK HURTADO Self - patient is the insured Medical (General) History Medical History History ICD Code Kidney stones--sees Dr Gonzales Denies [place],DM,CVA,Lung disease,renal dise ase He describes lactose intolerance [...] Vasectomy RFA and Back injections-Dr. Meyer at [facility]
--- OUTSIDE RECORDS SUMMARY | 2024-11-28 07:43 | XMS_ITS | Clinical Summary ---
Author Organization [facility] it[facility] Address [address] [place] [address] Care Team Providers Care Tactical Air Control Party Name Role Phone Unavailable Primary Care Provider [...]
== END 2024-11-28 08:13 | disposition home or self-care (01) ==
LOC: HO.HUSH 07:40
PROVIDERS: PCP Internal Medicine; Visit Provider Nurse Practitioner Family
DX: Z13.9 Encounter for screening, unspecified (principal); E29.1 Testicular hypofunction
CPT/HCPCS: 99213

== ENCOUNTER → 2024-11-28 07:40 | Outpatient (BNVA) | payer OTHER, SELFPAY | PROVIDERS: PCP Internal Medicine; Visit Provider Nurse Practitioner Family | DX: E29.1 Testicular hypofunction (principal) | CPT/HCPCS: 81003 ==

== ENCOUNTER 2025-02-06 07:20 | Outpatient (AMB) | payer OTHER, SELFPAY ==
--- OUTSIDE RECORDS SUMMARY | 2023-08-12 09:40 | XMS_ITS ---
Author Organization [facility] Address [address] [place] [id number] Care Team Providers Care Customs Consultant Name Role Phone Ricci NUNEZ, Mateusz Primary Care Provider Justusa Raul Jolley [phone] REASON FOR VISIT DYSPHAGIA Encounters Encounter Location Date Provider Diagnosis [facility] [address] [place] [phone] 08/12/2023 Raul Schultz Plan Of Treatment No Information Progress Notes * MACK HURTADODOB:1975 (49 yo M)Acc No.[id number]:08/12/2023 Progress Notes Patient: MACK TRAN Provider: Alek Schultz MD :1975 A ge:47 Y S ex:Male Date:08/12/2023 Address:[address] [place], [place] [phone] Pcp:Mateusz Wynne MD Subjective: * Chief Complaints: * D YSPHAGIA * The named appointment provid er may or may not be the originator of this progress note, and it is not deemed complete until electronically signed by the appointment provider. Sign off status: Pending * Provider: Alek Schultz MD Date: 0 08/12/2023 Generated for Jenna harrison/Miroslava/eTransmitting on: 04/09/2024 07:23 AM EST
--- OUTSIDE RECORDS SUMMARY | 2025-02-06 07:23 | XMS_ITS | Patient Health Record ---
Author Organization [facility] Address [address] [place] [address] Care Team Providers Care Equal Opportunity Counselor Name Role Phone Mateusz Wynne MD Primary Care Provider Raul Contreras [phone] Allergies No Known Allergies Reason For Referral No Information Medications Medication SIG (Take, Route, Frequency, Duration) Notes Start Date End Date Status Gabapentin 300 MG Capsule Oral; Duration: 30 Active Excedrin Migraine 250-250-65 MG Tablet 2 tablets Orally Once a day; Duration: 30 day(s) Not-Taking/PRN Omeprazole 20 MG Capsule Delayed Release 1 Orally Every morning; Duration: 90 days 04/07/2023 Active Rabia Allergy Acti ve Diclofenac Potassium 50 MG Tablet TAKE 1 TABLET BY MOUTH TWICE DAILY WITH FOOD AND FULL GLASS OF WATER NEEDED FOR PAIN. AVOID OTHER NSAIDS Oral; Duration: 60 PRN Active tiZANidine HCl 4 MG Tablet Oral; Duration: 30 PRN Active Concerta 54 MG Tablet Extended Release 1 tablet in the morning Orally Once a day Active Social History Tobacco Use: Social History Observation Description Date Details (start date - stop date) Never Smoker NA - NA Social History Drugs/Alcohol: Social Info Question Answer Notes Alcohol Screen Did you have a drink containing alcohol in the past year? No Points 0 Interpretation Negative Tobacco Use: Social Info Question Answer Notes Tobacco Use/Smoking Patient is a nonsmoker Additional Details Category Social Info Options Details Miscellaneous: Marital status: Occupation: Full-time [employer] at [employer]. Retiring May 01, 2023. 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 Children: [employer] Notes: He doesn't smoke or use any significant amounts of alcohol He is originally from [place], [place] He doesn't smoke or use any significant amounts of alcohol He is originally from [place], [place] He doesn't smoke or use any significant amounts of alcohol He is originally from [place], [place] Problems Problem Type SNOMED Code ICD Code Onset Dates Problem Status W/U Status Risk Notes Problem Colon cancer screening (542827017) Colon cancer screening (Z12.11) Active confirmed Problem Dysphagia (92930084) Dysphagia (R13.10) Active confirmed Problem Dysphagia (06123759) Pharyngoesophageal dysphagia (R13.14) Active confirmed Problem Gastroesophageal reflux disease (194230296) Gastroesophageal reflux disease, unspecified whether esophagitis present (K21.9) Active confirmed Problem Gastroesophageal reflux disease (disorder) (346655497) Chronic GERD (K21.9) Active confirmed Plan Of Treatment Future Test Test Name Order Date UPPER GI ENDOSCOPY [place]ALL[place]ON DILATION OF ESOPH 03/05/2023 COLONOSCOPY 03/05/2023 Insurance Providers Payer Name Payer Address Payer Phone Subscriber Number Group Number Insured Name Patient Relationship to Insured Coverage Start Date Coverage End Date [facility] PL[facility] (REFERRA L [facility]) [address] [place] [address] [id number] MACK HURTADO Self - patient is the insured Medical (General) History Medical History History ICD Code Kidney stones--sees Dr Gonzales Denies [place],DM,CVA,Lung disease,renal dise ase He describes lactose intolerance [...] Vasectomy RFA and Back injections-Dr. Meyer at [facility]
--- OUTSIDE RECORDS SUMMARY | 2025-02-06 07:23 | XMS_ITS | Patient Health Record ---
Author Organization [facility] [place] Address [address] [place] [address] Care Team Providers Care Manager Case Management Name Role Phone Ricci NUNEZ, Mateusz Primary Care Provider Lisa Browning Unavailable [phone] Allergies No Known Allergies Reason For Referral [...] Insured Coverage Start Date Coverage End Date [facility] [address] [place] [id number] Kyle Diane Self - patient is the insured Medical (General) History Medical History History ICD Code Anxiety Arthritis Back,Hip,and Knee pain Depression Headaches/Migraines Chicken pox Surgical History Surgery Date(Month/Year) ulner nerve relocation 2011, 2012
--- OUTSIDE RECORDS SUMMARY | 2025-02-06 07:23 | XMS_ITS | Clinical Summary ---
Author Organization [facility] Address [address] [place] [address] Care Team Providers Care Litigation Legal Secretary Name Role Phone Unavailable Primary Care Provider Unavailabl e Social History Tobacco Use Types Packs/Day Years Used Date Smoking Tobacco: Never Assessed Sex and Gender Information Value Date Recorded Sex Assigned at Not on file Legal Sex Male 5:44 PM EST Gender Identity Not on file Sexual Orientation Not on file Plan of Treatment Health Maintenance Due Date Last Done Comments Colorectal Cancer Screening: Colonoscopy 1976 Cholesterol Screening (Lipid Panel) 09/29/2023 HIV Screening 09/29/2023 Hepatitis C Screening 09/29/2023 Social Influencers of Health Screening 09/29/2023 Depression Screening 03/02/2024 COVID-19 Vaccine ( season) 2024 07/20/2020, 06/22/2020 Influenza Vaccine (#1) 2024 , 03/10/2021, 01/08/2020, Additional history exists DTaP,Tdap,and Td Vaccines (4 - Td or Tdap) 02/04/2030 02/05/2020, 05/23/2010, 01/06/2001 RSV Immunization Adult Patients (1 - 1-dose 75+ series) 11/27/2051 Hepatitis A Vaccines Aged Out 01/31/2002, 08/22/19 No longer eligible based on patient's age [...]
[2025-02-06 07:27] VITALS: BP 118/82; PULSE 79; O2SAT 98; BMI 31.8
--- NOTE | 2025-02-06 07:27 | MHC.OFFVIS ---
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 He had 2 inconclusive sleep studies . His recent ( 01/23) in lab sleep study was c/w mild sleep apnea.AHI 10/hr ) 2 pranav 87 % - more on Right side. He was unable to see a sleep dentist for his device .He lost 22 lbs since his last sleep study. He lost about 22 lbs since his sleep study and wants to try a different option other than CPAP due to difficulty sleeping with CPAP. His main symptoms , snoring, excessive daytime sleepiness, fatigue, leg spasms at night, restless legs, trouble falling and staying asleep, GERD at night.He uses flonase for his stuffy nose. He denies any abnormal sleep behavior, denies nocturia. [facility] Medical History Obstructive sleep apnea Fatigue Physical exam Urinary dribbling Urinary urgency Foot pain Right hip pain Muscle spasm of back Orchalgia Light headedness Body aches Difficulty urinating Skin lesion Back pain Arthritis Sleep disorder Renal calculi Depression Lumbar facet arthropathy Low back pain Hyperlipidemia Obesity Anxiety Surgical History History of back surgery History of testicular surgery H/O elbow surgery History of vasectomy Family History Father No problems noted. Mother No problems noted. Social History Housing: House Are you a primary weekend caregiver to a significant other at home: No Do you presently have visiting nurse or other home services: No Alcohol intake: never Patient Tobacco Use Status: Never used Tobacco e-Cigarette/Vaping Use: Never Used Second Hand Smoke Exposure: No service: Yes Current occupational status: employed Cognitive needs: No Hearing needs: No Vision needs: No Physical Exam Vital Signs: Last Vital Signs Pulse 79 02/06/25 07:27 BP 118/82 02/06/25 07:27 Pulse Ox 98 02/06/25 07:27 Oxygen Delivery Method Room Air 02/06/25 07:27 BMI result Body Mass Index 31.8 Const General: cooperative, healthy appearing, comfortable, no acute distress and well developed Nutritional Appearance: overweight Orientation/consciousness: patient oriented x3 Eyes Pupils: Equal, round and reactive pupils present Neuro General: patient oriented x3, gait normal, tone normal, moves all extremities and no focal motor deficits Cranial nerves: Yes Facial sensation intact/muscles of mastication intact, Yes Equal, round and reactive pupils present, Yes Bilaterally intact EOM present, Yes Nystagmus not present, Yes Normal facial strength present and Yes Midline tongue present Gait exam (Neuro): Normal gait present Assessment & Plan Assessment & Plan (1) Obstructive sleep apnea: Comment: AHI 10 O2 pranav 87% Code(s): G47.33 - Obstructive sleep apnea (adult) (pediatric) Category: Medical Plan I will refer him to [facility] for oral mandibular device. Avoid sleeping on the right side can use body pillow. Pres for somnoguard Coding Level of Care Code Est Pt Level 4 (98447) Diagnoses Obstructive sleep apnea G47.33
== END 2025-02-06 07:59 | disposition home or self-care (01) ==
PROVIDERS: PCP Internal Medicine; Visit Provider Psychiatry & Neurology Neurology
DX: G47.33 Obstructive sleep apnea (adult) (pediatric) (principal)
CPT/HCPCS: 99214

== ENCOUNTER → 2025-02-06 07:20 | Outpatient (BNVA) | payer OTHER, SELFPAY | PROVIDERS: PCP Internal Medicine; Visit Provider Psychiatry & Neurology Neurology | DX: G47.33 Obstructive sleep apnea (adult) (pediatric) (principal) | CPT/HCPCS: 99212 ==